=== PATIENT | male | born 1965 | race Caucasian/White ===

== ENCOUNTER → 2017-05-23 11:26 | Outpatient (CLI) | payer MEDICAID, SELFPAY ==
[2017-05-23 14:54] LABS: ALB/GLOB Ratio 0.8 RATIO (0.9-2.4); AST(SGOT) 17 U/L (15-37); Alanine Aminotransfer ALT/SGPT 33 U/L (16-61); Albumin, Serum 3.1 g/dL (3.2-5.0); Alkaline Phosphatase 72 U/L (45-117); Anion Gap 8 (5-15); BUN 11 mg/dL (7-18); Calcium,Total 8.6 mg/dL (8.5-10.1); Chloride 103 mmol/L (98-107); Cholesterol 197 mg/dL (200); EST Glomerular Filtration Rate 83 mL/min (>60); Est Glom Filt Rate - Afr Amer 101 mL/min (>60); Globulin 3.7 g/dL (2.2-4.2); Glucose 270 mg/dL (74-106); Hemoglobin A1c 7.8 % (4.2-6.3); High Density Lipoprotein 39 mg/dL; Potassium 4.2 mmol/L (3.5-5.1); Protein, Total 6.8 g/dL (6.4-8.2); Sodium Level 138 mmol/L (136-145); Thyroid Stim Hormone (TSH) 2.63 uIU/mL (0.358-3.74); Triglycerides 237 mg/dL; Very Low Density Lipoprotein 47 mg/dL (5-40)
[2017-05-24 11:43] LABS: Fructosamine 301 umol/L (0-285)
== END ==
PROVIDERS: Family Provider Family Medicine; PCP Family Medicine; Visit Provider Internal Medicine Endocrinology, Diabetes & Metabolism
DX: E11.319 Type 2 diabetes mellitus with unspecified diabetic retinopathy without macular edema (principal); E11.69 Type 2 diabetes mellitus with other specified complication; E78.2 Mixed hyperlipidemia
CPT/HCPCS: 36415; 80053; 80061; 82985; 83036; 84443

== ENCOUNTER → 2017-08-25 12:58 | Outpatient (CLI) | payer MEDICAID, SELFPAY ==
[2017-08-25 14:40] LABS: ALB/GLOB Ratio 0.9 RATIO (0.9-2.4); AST(SGOT) 15 U/L (15-37); Alanine Aminotransfer ALT/SGPT 34 U/L (16-61); Albumin, Serum 3.4 g/dL (3.2-5.0); Alkaline Phosphatase 73 U/L (45-117); Anion Gap 7 (5-15); BUN 13 mg/dL (7-18); BUN/Creat Ratio 13.5 RATIO (10-20); Chloride 102 mmol/L (98-107); Cholesterol 237 mg/dL (200); Creatinine, Serum 0.96 mg/dL (0.70-1.30); EST Glomerular Filtration Rate 87 mL/min (>60); Est Glom Filt Rate - Afr Amer 105 mL/min (>60); Globulin 3.7 g/dL (2.2-4.2); Glucose 247 mg/dL (74-106); High Density Lipoprotein 46 mg/dL; Potassium 4.3 mmol/L (3.5-5.1); Protein, Total 7.1 g/dL (6.4-8.2); Sodium Level 138 mmol/L (136-145); Triglycerides 155 mg/dL; Very Low Density Lipoprotein 31 mg/dL (5-40)
[2017-08-25 14:41] LABS: Hemoglobin A1c 8.3 % (4.2-6.3)
== END ==
PROVIDERS: Family Provider Family Medicine; PCP Family Medicine; Visit Provider Internal Medicine Endocrinology, Diabetes & Metabolism
DX: E11.69 Type 2 diabetes mellitus with other specified complication (principal); E78.2 Mixed hyperlipidemia
CPT/HCPCS: 36415; 80053; 80061; 83036

== ENCOUNTER → 2017-12-11 10:29 | Outpatient (CLI) | payer MEDICAID, SELFPAY ==
[2017-12-11 12:33] LABS: Hemoglobin A1c 7.9 % (4.2-6.3)
[2017-12-11 12:36] LABS: ALB/GLOB Ratio 0.9 RATIO (0.9-2.4); AST(SGOT) 17 U/L (15-37); Alanine Aminotransfer ALT/SGPT 32 U/L (16-61); Albumin, Serum 3.2 g/dL (3.2-5.0); Alkaline Phosphatase 70 U/L (45-117); Anion Gap 7 (5-15); BUN 13 mg/dL (7-18); Calcium,Total 8.9 mg/dL (8.5-10.1); Chloride 102 mmol/L (98-107); Cholesterol 219 mg/dL (200); Creatinine, Serum 1.18 mg/dL (0.70-1.30); EST Glomerular Filtration Rate 69 mL/min (>60); Est Glom Filt Rate - Afr Amer 83 mL/min (>60); Globulin 3.6 g/dL (2.2-4.2); Glucose 349 mg/dL (74-106); High Density Lipoprotein 43 mg/dL; PSA,Total - Annual Screen 0.25 ng/mL (0.00-4.00); Protein, Total 6.8 g/dL (6.4-8.2); Sodium Level 139 mmol/L (136-145); Triglycerides 79 mg/dL; Very Low Density Lipoprotein 16 mg/dL (5-40)
== END ==
PROVIDERS: Family Provider Family Medicine; PCP Family Medicine; Visit Provider Internal Medicine Endocrinology, Diabetes & Metabolism
DX: E11.69 Type 2 diabetes mellitus with other specified complication (principal); E78.2 Mixed hyperlipidemia; Z12.5 Encounter for screening for malignant neoplasm of prostate
CPT/HCPCS: 36415; 80053; 80061; 83036; 84153; G0103

== ENCOUNTER → 2018-06-27 13:11 | Outpatient (CLI) | payer MEDICAID, SELFPAY ==
--- NOTE | 2018-06-27 13:18 | VDLE_ITS ---
Reason For Study: DVT RIGHT LEFT GSV is normal. GSV is normal. CFV is compressible, spontaneous, phasic, CFV is compressible, spontaneous, phasic, competent and demonstrates normal competent, and demonstrates normal augmentation. augmentation. FV is compressible, spontaneous, phasic, FV is compressible, spontaneous, phasic, competent and demonstrates normal competent and demonstrates normal augmentation. augmentation. POP V is compressible, spontaneous, phasic, POP V is compressible, spontaneous, phasic, competent and demonstrates normal competent and demonstrates normal augmentation. augmentation. T/P Trunk is compressible. T/P Trunk is compressible. PTV is compressible. PTV is compressible. RT PerV is compressible. LT PerV is compressible. Procedure Exam performed in department. The exam was diagnostic. A preliminary report was called and/or faxed to Dr. Zaman. Interpretation Summary Deep veins of the lower extremities are bilaterally patent and compressible segmentally. There is no evidence of deep vein thrombosis on either side. Valvular competence appears intact within the proximal deep venous systems bilaterally. The greater saphenous veins appear bilaterally patent and compressible segmentally. Ordering Physician: Kenji Zaman Performed By: Munir Kohli RVT
== END ==
PROVIDERS: Family Provider Family Medicine; PCP Family Medicine; Referring Provider Podiatrist; Visit Provider Podiatrist
DX: I82.403 Acute embolism and thrombosis of unspecified deep veins of lower extremity, bilateral (principal); M79.89 Other specified soft tissue disorders; E11.51 Type 2 diabetes mellitus with diabetic peripheral angiopathy without gangrene
CPT/HCPCS: 93970

== ENCOUNTER 2018-07-13 08:25 | Outpatient (RCR) | payer MEDICAID, SELFPAY ==
--- NOTE | 2018-07-13 10:31 | HP.OTEVAL_ITS ---
Patient's Visit Information BAILEY CARDENAS is a 52 year old M, referred to Occupational Therapy by REBECCA WYATT, with a diagnosis of Lymphedema. Date of Evaluation: 07/13/18 Occupational Therapist: Cesia Rizo, TEREZAR/Justin, CHT - Subjective Subjective: This 52 year old male was seen for initial OT eval with dx of lymphedmea. Pt states he initiated wearing belly binder but it cuased back pain so he stopped wearing it. Pt states he did wear knee high compression sock at 10-15mmhg. Pt states he did wear the compression socks he did wear for one day but his right LE has hurt since so he has not used them again. Pt states he was over 400# at one time and dropped weight to 175# and shortly after was dx with DM and gain marylu back. 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 Pt would like to figure out how to make the swelling go away. - Pain BLE 8 Pain Intensity Range: 8, 9 - Lymphedema (Circumferential Measure) Ankle: right 29cm left 27cm Lower calf: right 37cm left 32cm Largest calf: right 45cm left 42cm Below knee: right 39cm left 38cm Lower Exremity Comments: pt demo with LE edema- - Lower Limb Functional Index Lower Extremity Functional Score: 17 - Goals Demonstrate a 20% reduction in edema by d/c: Yes Demonstrate adequate knowledge of self-massage by 2nd week: Yes Demonstrate adequate knowledge skin care/prec by 2nd week: Yes Demonstrate adequate knowledge therapeutic exercises by d/c: Yes Voice need to replace compression garment every 4-6mo by dc: Yes - Rehabilitation General Assessment: PT demo with stage I lymphedmea- pt demo need for skilled OT services 2-3 visits to ensure pt understands lymphedema mtg, use of compression garments, skin care and lymphedema ex. Today pt was ed. on lymph system, lymph mtg and compression garments. Pt given handout, demo understanding of use of compression garments and was given handouts. PT to return in 3-4 weeks after use of compression garments to ensure progress in mtg. pt agree to POC. Rehabilitation Potential: Fair - Anticipated Interventions Anticipated Interventions: Education re Diagnosis, Education re Life-long lymphedema Management, Education re Skin Care and Precautions, Education re Self Massage Techniques, Education re Correct Donning Tech,Care&Wearing Sched Comp Garments - Visit Plan Duration: return in 3-4 weeks TEXT: Thank you for the opportunity to evaluate your patient. For Medicare and Medicare HMO plans, please review the plan of care and approve it. It will need to be FAXED BACK to us at [phone] for Medicare purposes. Please let me know if there are questions or concerns regarding this plan of care. Physician Signature: Date:
--- NOTE | 2018-07-16 09:52 | HP.OTEVAL ---
Patient's Visit Information BAILEY CARDENAS is a 52 year old M, referred to Occupational Therapy by REBECCA WYATT, with a diagnosis of Lymphedema. Date of Evaluation: 07/13/18 Occupational Therapist: Cesia Rizo, TEREZAR/Justin, CHT - Subjective Subjective: This 52 year old male was seen for initial OT eval with dx of lymphedmea. Pt states he initiated wearing belly binder but it cuased back pain so he stopped wearing it. Pt states he did wear knee high compression sock at 10-15mmhg. Pt states he did wear the compression socks he did wear for one day but his right LE has hurt since so he has not used them again. Pt states he was over 400# at one time and dropped weight to 175# and shortly after was dx with DM and gain marylu back. 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 Pt would like to figure out how to make the swelling go away. - Pain BLE 8 Pain Intensity Range: 8, 9 - Lymphedema (Circumferential Measure) Ankle: right 29cm left 27cm Lower calf: right 37cm left 32cm Largest calf: right 45cm left 42cm Below knee: right 39cm left 38cm Lower Exremity Comments: pt demo with LE edema- - Lower Limb Functional Index Lower Extremity Functional Score: 17 - Goals Demonstrate a 20% reduction in edema by d/c: Yes Demonstrate adequate knowledge of self-massage by 2nd week: Yes Demonstrate adequate knowledge skin care/prec by 2nd week: Yes Demonstrate adequate knowledge therapeutic exercises by d/c: Yes Voice need to replace compression garment every 4-6mo by dc: Yes - Rehabilitation General Assessment: PT demo with stage I lymphedmea- pt demo need for skilled OT services 2-3 visits to ensure pt understands lymphedema mtg, use of compression garments, skin care and lymphedema ex. Today pt was ed. on lymph system, lymph mtg and compression garments. Pt given handout, demo understanding of use of compression garments and was given handouts. PT to return in 3-4 weeks after use of compression garments to ensure progress in mtg. pt agree to POC. Rehabilitation Potential: Fair - Anticipated Interventions Anticipated Interventions: Education re Diagnosis, Education re Life-long lymphedema Management, Education re Skin Care and Precautions, Education re Self Massage Techniques, Education re Correct Donning Tech,Care&Wearing Sched Comp Garments - Visit Plan Duration: return in 3-4 weeks TEXT: Thank you for the opportunity to evaluate your patient. For Medicare and Medicare HMO plans, please review the plan of care and approve it. It will need to be FAXED BACK to us at [phone] for Medicare purposes. Please let me know if there are questions or concerns regarding this plan of care. Physician Signature: Date:
--- NOTE | 2018-10-10 15:34 | HP.OT.NRP ---
HP - Discharge Summary - Patient Information BAILEY CARDENAS was seen in my office for initial evaluation on 07/13/18. The following Plan of Care was established for this patient: Initial Duration: return in 3-4 weeks - Anticipated Interventions Anticipated Interventions: Education re Diagnosis, Education re Life-long lymphedema Management, Education re Skin Care and Precautions, Education re Self Massage Techniques, Education re Correct Donning Tech,Care&Wearing Sched Comp Garments This patient was last seen in our office 07/13/18. Pertinent comments regarding their Occupational therapy will appear below: Pt seen for OT eval only, no further apts have been scheduled and due to time lapse in therapy services pt d/c at this time. At this point I will be discontinuing this patient from occupational therapy. I would be happy to see this patient again in the future if found appropriate by the physician. Thank you! Cesia Rizo, OTR/L, CHT
== END 2018-07-13 19:00 | disposition home or self-care (01) ==
LOC: OT 08:25
PROVIDERS: Family Provider Family Medicine; PCP Family Medicine
DX: I89.0 Lymphedema, not elsewhere classified (principal)
CPT/HCPCS: 97166

== ENCOUNTER 2018-09-13 08:08 | Outpatient (RCR) | payer MEDICAID, SELFPAY ==
[2018-09-13 08:39] VITALS: BP 197/92; PULSE 86; RESP 18; TEMP 36.7
--- NOTE | 2018-09-13 12:56 | PCM.WC.HP ---
(1) Ulcer of right lower extremity with fat layer exposed Status: Acute Current Visit: Yes Code(s): L97.912 - Non-pressure chronic ulcer of unspecified part of right lower leg with fat layer exposed (2) Ulcer of left lower extremity with fat layer exposed Status: Acute Current Visit: Yes Code(s): L97.922 - Non-pressure chronic ulcer of unspecified part of left lower leg with fat layer exposed (3) Lymphedema Status: Acute Current Visit: Yes Code(s): I89.0 - Lymphedema, not elsewhere classified (4) Lower extremity edema Status: Acute Current Visit: Yes Code(s): R60.0 - Localized edema (5) Non-compliance Status: Acute Current Visit: Yes Code(s): Z91.19 - Patient's noncompliance with other medical treatment and regimen History of Present Illness Date of Service: 09/13/18 Chief Complaint: bilateral anterior lower leg ulcers History of Wound: This 52-year-old diabetic male patient was consulted to the wound healing center after being referred here by Dr. Zaman for bilateral anterior martin ulcers and lower extremity edema. Patient states he noticed the ulcers starting approximately 1 week ago. He says they have not been getting any worse, but they are not getting better either. He relates he goes to the lymphedema clinic in [place] weekly. He admits to not keeping compression to his lower extremities or using his lymphedema pumps as long as recommended. Patient denies any purulence, redness, or warmth to the sites. Patient currently denies any feelings of nausea, vomiting, fever, chills. Past Medical History Allergies/Adverse Reactions: Allergies amlodipine [From Norvasc] Allergy (Verified 09/13/18 09:42) Other apraclonidine Allergy (Verified 09/13/18 09:42) Other doxycycline Allergy (Verified 09/13/18 09:42) Other enalapril Allergy (Verified 09/13/18 09:42) Other glimepiride Allergy (Verified 09/13/18 09:42) Other glipizide [From Glucotrol] Allergy (Verified 09/13/18 09:42) Other hydralazine Allergy (Verified 09/13/18 09:42) Other ibuprofen Allergy (Verified 09/13/18 09:42) Other latex Allergy (Verified 09/13/18 09:42) Other lisinopril Allergy (Verified 09/13/18 09:42) Other metoprolol Allergy (Verified 09/13/18 09:42) Other Penicillins Allergy (Verified 09/13/18 09:42) Other pravastatin Allergy (Verified 09/13/18 09:42) Other prednisone Allergy (Verified 09/13/18 09:42) Other simvastatin [From Zocor] Allergy (Verified 09/13/18 09:42) Other sulfamethoxazole [From Bactrim] Allergy (Verified 09/13/18 09:42) Other trimethoprim [From Bactrim] Allergy (Verified 09/13/18 09:42) Other Home Medications: Ambulatory Orders Medication Instructions Recorded Insulin Aspart [Novolog Flexpen 40 units SUBCUT ACHS 09/13/18 ([facility])] Insulin Glargine,Hum.rec.anlog 30 unit SQ BID 09/13/18 [Basaglar Kwikpen U-100] Review of Systems Constitutional: Denies: Chills, Fever, Weight Change Cardiovascular: Denies: Chest Pain, Palpitations Respiratory: Denies: Cough, Shortness of Breath Gastrointestinal: Denies: Diarrhea, Nausea, Vomiting Skin: Reports: - - Bilateral anterior martin ulcers - Physical Exam Vital Signs Temp Pulse Resp BP 98.0 F 86 18 197/92 H 09/13/18 08:39 09/13/18 08:39 09/13/18 08:39 09/13/18 08:39 General: Alert, Oriented x3, Cooperative, No apparent distress Extremities: Capillary Refill Less than 3 Seconds, No Calf Tenderness - Negative Tari and Whitney sign, Diminished Peripheral Pulses - Due to lower extremity edema, Edema - Bilateral lower extremity edema Skin: Ulcer/ Wound - Ulcer with fat layer exposed to right and left anterior martin. Base is a mixture of adherent slough, biofilm, granular tissue, as well as some surrounding hyperkeratotic tissue. There is no probing to bone, no tracking, no undermining, no purulence, no malodor, no surrounding or extending cellulitis, and no increase in warmth to the areas. Wound Measurements and Assessment WC - Nurse 1 - General Ulcer Measurement Start: 09/13/18 08:29 Freq: Status: Active Protocol: Activity Type Activity Date Activity User E-Sign Co-Sign Detail Recorded Client Recorded Date Recorded By Document 09/13/18 08:39 [place] [id number] 09/13/18 09:20 [place] 09/13/18 08:39 Wound Center Nurse 1 [Ulcer Assessment] #2 Right Martin Cluster -Current Size (cm) - Length 3 -Current Size (cm) - Width 7.6 -Current Size (cm) - Depth 0.1 -Total Square Cm 22.8 -Date of Last Picture (Recall this 09/13/18 field) -Photo Taken Yes -Exudate Amt Small -Exudate Type Serosanguineous -Wound Margin Flat & Intact -Granulation Amt Large (67-100%) -Granulation Quality Pale,[place] -Necrosis Amt Small (1-33%) -Necrotic Tissue Type Adherent Slough -Texture ([place]-wound Skin Appearance) Assessed, Localized Edema -Moisture ([place]-wound Skin Appearance Assessed, ) Weeping -Color ([place]-wound Skin Appearance) Assessed, Erythema -Temperature ([place]-wound Skin No Abnormality Appearance) (Pt Warm) -Tenderness on Palpation ([place]-wound No Skin Appearance) -Ulcer Cleansing Rinsed/ Irrigated with Saline -Foul Odor after Cleansing No -Anesthetic Used 4% Lidocaine Solution #1 Left Martin Cluster -Current Size (cm) - Length 2.1 -Current Size (cm) - Width 1.5 -Current Size (cm) - Depth 0.1 -Total Square Cm 3.15 -Date of Last Picture (Recall this 09/13/18 field) -Photo Taken Yes -Exudate Amt Small -Exudate Type Serosanguineous -Wound Margin Flat & Intact -Granulation Amt Medium (34-66%) -Granulation Quality Pale,[place] -Necrosis Amt Medium (34-66%) -Necrotic Tissue Type Adherent Slough -Texture ([place]-wound Skin Appearance) Assessed, Localized Edema -Moisture ([place]-wound Skin Appearance Assessed ) -Color ([place]-wound Skin Appearance) Assessed, Erythema -Temperature ([place]-wound Skin No Abnormality Appearance) (Pt Warm) -Tenderness on Palpation ([place]-wound No Skin Appearance) -Ulcer Cleansing Rinsed/ Irrigated with Saline -Foul Odor after Cleansing No -Anesthetic Used 4% Lidocaine Solution [Edema Assessment] -Right Calf (cm) 46 -Right Ankle (cm) 26 -Left Calf (cm) 42 -Point of Measurement (cm from the 26 medial instep) Musculoskeletal: No Tenderness to Palpation of Joints or Extremities Neurological: Sensory exam intact to light touch and pain Psych/Mental Status: Normal Affect, Appropriate Debridement Note No debridement was completed today Assessment/Plan Active Problems (Last Updated 09/13/18 @ 09:42 by Elba Sharma) Ulcer of right lower extremity with fat layer exposed (Acute) Ulcer of left lower extremity with fat layer exposed (Acute) Lymphedema (Acute) Lower extremity edema (Acute) Non-compliance (Acute) Assessment: Ulcer of right lower extremity fat layer exposed. Ulcer of left lower extremity fat layer exposed. DM. Lymphedema. Other comorbidities Plan: Initial patient examination evaluation was performed. No significant aggressive debridement was performed during clinic today. Patient was very rude during his visit today and was swearing as well. Ulcer sites were carefully cleansed. I suggested a 3M wrap to each lower leg. Patient says he is not interested in any kind of dressing that cannot be removed because he says there is no way he is not going to shower and that he does not feel he can keep the dressings dry if he does shower with them on. Patient demands that something be applied that can be changed to daily. We discussed at length that if the patient does not feel he can sufficiently change his dressings daily on his own he would be better off with a 3M wrap. He again denies this option. Patient does not qualify for home health. His ulcer sites were then dressed with Aquacel Ag followed by dry sterile dressing and double layer Tubigrip for compression. Patient was instructed that he is to changes on a daily basis. He again became agitated that he cannot come to the wound center for his dressing changes throughout the week. He then stated that he does not know what he is doing here. I again explained in detail the situation and what I recommended for dressing. He again goes against this and wishes to proceed with the dressing as noted above that he will need to change daily on his own. Patient to continue to follow-up with his lymphedema clinic in [place]. Patient was educated on all signs and symptoms of local and systemic infection he was instructed to go to the emergency room immediately should he notice any of these. Patient will follow back up in clinic in 1 week to check on progress, but was instructed to call the clinic should he have any issues prior to then.
== END 2018-09-23 23:59 ==
LOC: WC 08:08
PROVIDERS: Family Provider Family Medicine; PCP Family Medicine; Visit Provider Podiatrist
DX: E11.622 Type 2 diabetes mellitus with other skin ulcer (principal); L97.812 Non-pressure chronic ulcer of other part of right lower leg with fat layer exposed; L97.822 Non-pressure chronic ulcer of other part of left lower leg with fat layer exposed; I89.0 Lymphedema, not elsewhere classified; Z91.19 Patient's noncompliance with other medical treatment and regimen; R60.0 Localized edema
CPT/HCPCS: 99202; G0463

== ENCOUNTER 2019-06-01 04:35 | Observation (INO) | payer MEDICAID, SELFPAY ==
[2019-06-01] VITALS (15 sets, daily range): BP systolic 149–193; BP diastolic 68–110; PULSE 92–106; RESP 18–37; TEMP 36.4–36.9; O2SAT 81–97; BMI 58.3; BMI 58.4
--- NOTE | 2019-06-01 04:44 | EKG12_ITS ---
Test Reason : Blood Pressure : / mmHG Vent. Rate : 099 BPM Atrial Rate : 099 BPM P-R Int : 142 ms QRS Dur : 088 ms QT Int : 342 ms P-R-T Axes : 067 107 060 degrees QTc Int : 438 ms Normal sinus rhythm Rightward axis Borderline ECG Confirmed by QASIM BERGER, ENRICO ([id number]), lens coating technician SOPHIE GMAA ([id number]) on 06/03/2019 3:33:31 PM Referred By: BB Confirmed By:ENRICO TRIPP MD
--- NOTE | 2019-06-01 04:54 | ED.VIS.DYS ---
History of Present Illness Chief Complaint: Shortness of Breath Informant: Patient, EMS Onset: Weeks - 2-3 Timing: Continuous Quality: Orthopnea, Wheezing Current Severity: Severe Maximum Severity: Severe Worsened by: Coughing, Exertion, Lying flat Relieved by: Albuterol, Oxygen Associated Symptoms: Cough. Negative for: Bloody Sputum, Clear sputum, Fever, Green sputum, Rhinorrhea, Sore throat, Yellow sputum Chest Pain: Tightness Narrative: Patient has a history of COPD from secondhand smoke and lymphedema and was admitted to [facility] in [place] couple weeks ago, states he had an echocardiogram there does not know the results of it, does not have any known history of heart problems or congestive heart failure, but does have a history of lymphedema for which she was recently put on torsemide for her after not tolerating Lasix for some reason. He was discharged and was supposed to be on oxygen at home but it never came so he went to [facility], where he was admitted and discharged and again oxygen never came, saw his PCP yesterday, was advised to get oxygen at home, it never came. He states he is now worse again with same symptoms as before. - Past Medical History (1) COPD (chronic obstructive pulmonary disease) Status: Chronic (2) Lymphedema Status: Chronic Past Medical History - Allergies and Home Meds Allergies/Adverse Reactions: Allergies amlodipine [From Norvasc] Allergy (Verified 09/13/18 09:42) Other apraclonidine Allergy (Verified 09/13/18 09:42) Other diltiazem Allergy (Verified 06/01/19 06:50) Unknown doxycycline Allergy (Verified 09/13/18 09:42) Other enalapril Allergy (Verified 09/13/18 09:42) Other glimepiride Allergy (Verified 09/13/18 09:42) Other glipizide [From Glucotrol] Allergy (Verified 09/13/18 09:42) Other hydralazine Allergy (Verified 09/13/18 09:42) Other ibuprofen Allergy (Verified 09/13/18 09:42) Other Influenza Virus Vaccines Allergy (Verified 06/01/19 06:50) Unknown latex Allergy (Verified 09/13/18 09:42) Other lisinopril Allergy (Verified 09/13/18 09:42) Other metoprolol Allergy (Verified 09/13/18 09:42) Other montelukast Allergy (Verified 06/01/19 06:50) Other blurred vision Penicillins Allergy (Verified 09/13/18 09:42) Other pravastatin Allergy (Verified 09/13/18 09:42) Other prednisone Allergy (Verified 09/13/18 09:42) Other propranolol Allergy (Verified 06/01/19 06:50) Unknown simvastatin [From Zocor] Allergy (Verified 09/13/18 09:42) Other sulfamethoxazole [From Bactrim] Allergy (Verified 09/13/18 09:42) Other trimethoprim [From Bactrim] Allergy (Verified 09/13/18 09:42) Other Primary Care Physician: Armin Chau DO [Primary Care Provider] - Doctors: 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 Denies: Chills, Fever, Sweats Eyes: Denies: Visual changes - bilaterally, Diplopia ENT: Denies: Bilateral ear pain, Rhinorrhea, Sore throat Cardiovascular: Reports: Chest pain. Denies: Palpitations, Heart racing Respiratory: Reports: Dyspnea, Cough, Dyspnea on exertion, Orthopnea. Denies: Sputum Gastrointestinal: Denies: Abdominal pain, Nausea, Vomiting, Diarrhea, Melena, Hematochezia Genitourinary: Denies: Dysuria, Hematuria, Frequency Musculoskeletal: Reports: Swelling. Denies: Neck pain, Back pain, Extremity Pain Skin: Reports: Wounds - right lower leg, not painful, chronic, looks good now compared to usual. Denies: Rash Neurological: Denies: Headache, Weakness, Numbness Allergy: Denies: Swelling of the mouth, Swelling of the tongue Physical Exam Vital Signs/Narrative: Vital Signs Temp Pulse Resp BP Pulse Ox 06/01/19 04:37 97.6 F L 104 H 37 H 193/99 H 86 Inital Vital Signs reviewed: Yes General: Well nourished, Well developed, Obese, Acute Distress - respiratory; speaking in 3-5-word sentences Head: Normocephalic, Atraumatic Eyes: Perrl, EOMI ENT: Moist mucous membranes, No rhinorrhea Neck: Supple, Nontender, No lymphadenopathy, No JVD - none visible but limited by obesity Cardiovascular: Regular rate, Regular rhythm, No murmurs, Tachycardia Respiratory: No distress, Chest nontender, Wheezing - mild expiratory, Diminished - symmetric, throughout; limited by obesity. Negative for: Rales, Rhonchi Abdomen: Soft, Nontender, Nondistended, Normal bowel sounds, - - no ascites fluid wave, but abd wall feels tight. no peau d' orange appearance or induration/cellulitis/erythema. Back: Nontender, Normal Inspection Extremities: Nontender - 4+ BLE, to upper abd wall. changes c/w stasis in BLE., Edema - 4+ BLE, to upper abd wall. changes c/w stasis in BLE Skin: Normal color, No rash, - - large anterior superficial right lower leg wound w/ granulation tissue, nontender, no abscess or SQ emphysema. Neurological: Alert, Oriented x3, Cranial nerves II-XII grossly intact, Normal Strength, Normal Sensation Psychological: Normal Mood, - - anxious Diagnostic/Tx/Re-eval - Rhythm Strip Rhythm Strip: Sinus Tach Rate: 110 Ectopy: None - EKG Initial EKG Interpretation: Sinus Rhythm, No Acute Injury Pattern Prior: Unchanged Treatment - Dyspnea: Oxygen, Albuterol, Atrovent Repeat Evaluation: Improved - Medical Decision Making Initially patient appeared to be in respiratory distress to a significant degree so aerosols and BiPAP were ordered. Patient refused it, and the aerosols helped, he was able to converse better but not great, we lied him back and he did fairly well. His chest x-ray is read by radiology is fairly unremarkable without any acute disease. He thinks this feels like he has asthma/COPD, which is why nebulizer treatments have been helping. He refuses diuretic as well, stating that he had an abnormal reaction to furosemide which is why his doctor changed him to torsemide yesterday, and he also refuses steroids because they make his lymphedema worse. On reevaluating him, he confirms that he was the short of breath at his doctor's office yesterday and this is been fairly common for him in the past couple weeks. He went to a lymphedema specialist [facility] and he states that was a joke. He was told he needed surgery but that his BMI was way too high, and that he should consider bariatric surgery but they told him that the lymphedema surgery may be more appropriate before bariatric. We were not able to obtain blood easily. We have an IV but will not draw back anything and lab was unable to obtain blood from him. Therefore after obtaining verbal consent from the patient I performed a femoral vena puncture, however the blood clotted before we could get it into tubes. Nursing is trying again and those labs are pending but in the end he will be admitted because of persistent hypoxemia and the lack of oxygen at home. We did give him several more nebulizer treatments and he improved, and I took him off of his oxygen to see if his levels improved, but he quickly desatted down to 85% so the oxygen was put back on and he is admitted. Of further note, his blood pressure remained significantly elevated. He recently had an echocardiogram at [place] showing a normal LV function with EF 55-60%, and normal diastolic function. Subsequently, when he was discharged from [facility], he was discharged with a diagnosis of acute congestive heart failure and acute on chronic diastolic congestive heart failure. His BNP now is 74, arguing against acute decompensated congestive heart failure. Procedures Procedure(s): Femoral venipuncture. Blood was unable to be obtained by nursing or lab for testing, so patient provided verbal consent for right femoral venipuncture. This was performed under ultrasound guidance, isopropanol prep, followed by punctured with an 18-gauge needle and 20 cc syringe. Approximately 10 cc was able to be obtained. Patient refused local anesthesia beforehand. He tolerated well. There were no complications except for hemolyzed blood. ED Disposition - Plan for ED Patient: Disposition: Acute Care Hospital [facility] Diagnosis: Hypoxemia, COPD (chronic obstructive pulmonary disease), Lymphedema, Accelerated hypertension Referrals: Armin Chau DO [Primary Care Provider] -
--- NOTE | 2019-06-01 04:59 | ED.RN ---
RELEASE OF INFORMATION FAXED TO [facility] FOR MEDICAL RECORDS AT [facility] 05/18/2019-05/23/2019 AND [facility] 05/27/2019-05/31/2019
--- NOTE | 2019-06-01 05:03 | RAD_ITS ---
STUDY: X-RAY CHEST REASON FOR EXAM: Male, 53 years old. COPD EXACERBATION -- SOB TECHNIQUE: Single frontal view of the chest. COMPARISON: None. FINDINGS: The lungs are clear and expanded. There is no demonstrated pleural abnormality. Prominent cardiac silhouette. Normal mediastinum and elma. Normal visualized pulmonary arteries. Normal visualized aortic arch and descending thoracic aorta. Normal visualized thoracic spine. Normal visualized ribs, clavicles, and shoulders. There is no demonstrated abnormality of the visualized soft tissue structures of the upper abdomen. RAD/Chest 1 View (Portable) IMPRESSION: No acute pulmonary findings. Electronically Signed: Danny Edwards MD at 5:26 EST Tel , Service support ,
[2019-06-01 06:05] LABS: Allen Test POS; Base Excess 8 mmol/L (-2 to +2); Blood Gas Specimen Type ART; O2 Delivery Device Nasal Can; PO2 64 mmHG (75-100); SITE L Radial; SO2 92 % (95-99); Total Carbon Dioxide 35 mmol/L; pCO2 53.8 mmHg (35-45)
[2019-06-01] MEDS: Ipratropium/Albuterol Sulfate 3 ML AMPUL.NEB INHALATION ×4 (06:28→19:42)
[2019-06-01] MEDS: Albuterol 2.5 MG/3 ML VIAL.NEB. INHALATION ×3 (06:28→06:39)
[2019-06-01 06:30] LABS: Absolute Lymphocyte Count 0.98 X10^3/uL (0.83-4.51); Absolute Neutrophil Count 12.4 X10^3/uL (2.0-7.7); Basophil# 0.06 X10^3/uL; Basophil% 0.4 % (0-1); Eosinophil# 0.13 X10^3/uL; Eosinophils% 0.9 % (0-5); Hematocrit 48.4 % (40-54); Hemoglobin 14.7 g/dL (13.0-16.5); Lymphocyte # 0.98 X10^3/ul (4.0); Lymphocyte % 6.8 % (19-41); Mean Corp Hgb Conc 30.4 g/dL (32-36); Mean Corpuscular Hgb 26.2 pg (27.0-32.0); Mean Corpuscular Volume 86.3 fL (80-94); Mean Platelet Vol. 9.9 fl (6.2-12.0); Monocyte# 0.87 X10^3/uL; NRBC Flagged by Analyzer 0 % (0-5); Neutrophil # 12.38 X10^3/uL (2.7-7.7); Neutrophil % 85.7 % (47-70); Platelet Count 208 K/mm3 (150-450); RBC Distribution Width CV 13.6 % (11.6-14.6); RBC Distribution Width SD 42.3 fl (35.1-43.9); Red Blood Count 5.61 M/mm3 (4.6-6.2); White Blood Count 14.5 K/mm3 (4.4-11.0)
[2019-06-01 06:35] LABS: Bedside Glucose 204 mg/dL (70-110)
[2019-06-01 06:48] LABS: Anion Gap 3 (5-15); BUN 24 mg/dL (7-18); Calcium,Total 8.8 mg/dL (8.5-10.1); Chloride 105 mmol/L (98-107); Creatinine, Serum 1.09 mg/dL (0.70-1.30); EST Glomerular Filtration Rate 75 mL/min (>60); Est Glom Filt Rate - Afr Amer 91 mL/min (>60); Estimated Creatinine Clearance 62.35 ml/min; Glucose 196 mg/dL (74-106); Sodium Level 140 mmol/L (136-145)
[2019-06-01 07:04] LABS: BNP,B-Type NATRIURETIC PEPTIDE 74.2 pg/mL (0-100)
[2019-06-01 09:05] LABS: Bedside Glucose 259 mg/dL (70-110)
--- NOTE | 2019-06-01 10:40 | NURSING ---
Addendum entered by Linnea Kramer 06/01/19 10:49: Pt denies every having sleep apnea and per questions answered on admission- does not flag + for sleep apnea. Pt has large seeping wound, with pinkish- red with to right lower ext. and 3+ pitting edema to bilateral lower ext. Pt states he has a history of lymphedema. Pt states that we are not to order any antibiotics because I don't need them. He states that he just had some this past week and that he will not take them if/ when they are ordered. He also states he will not take any steroids as that is what caused his legs to balloon up last time and states he will not take lasix either because they just about killed my kidneys with that. Notified solumedrol is ordered and pt states he will not take. Pt adamant that he take his own prilosec because he cannot take the alternate. Pt requested breakfast- same ordered. this RN had been waiting on new orders for home meds from physician and pt called out 3 times demanding his morning meds- states he must have his novolog now because he is starting to shake and can feel his sugars rising. He notified this RN that you better get on the phone and get it to me now. pt notified that physician was called, and that pharmacy was already notified of pt request for AM meds, sherif. insulin now. Insulin given as soon as order verified by pharmacy in the computer. pt states he cannot use dial soap on wound and cannot use most dressings because it makes the wound worse. He states that is what happened at the last hospital-they were wrapping it wrong. He states he is suppose to use [employer] wraps but can't get down there to his legs. Pt b/p was rechecked at this time and was 178/76- however, states even if bp meds were ordered he will not take them. Doctor to be notified of same. Doctor Ese notified of pt being very particular and of pt refusing many interventions intended to help pt. Pt states he is here due to his increases SOB at home and need for home oxygen. Original Note: Pt admitted this shift after being transferred from [facility] to [facility] and the had appt with PCP on Monday. Pt states that both places were suppose to order home oxygen and they both dropped the ball. States at [facility] they tried to have him wear a cpap and that it was taking away his breath. He states that then the importer or exporter there stated that he did not need.
[2019-06-01] MEDS: Insulin Lispro 100 UNIT/ML INSULN.PEN SC ×3 (10:44→16:52)
[2019-06-01] MEDS: Insulin Lispro 100 UNIT/ML INSULN.PEN 40 UNIT SC ×3 (10:44→16:53)
[2019-06-01] MEDS: Sodium Chloride 0.65% 1 SPRAY SPRAY.BTL NASAL ×2 (12:17→17:30)
[2019-06-01] MEDS: Bumetanide 0.5 MG Tablet 1 MG PO (12:18)
[2019-06-01 13:50] LABS: Bedside Glucose 312 mg/dL (70-110)
--- NOTE | 2019-06-01 14:19 | PCM.HP.STD ---
<Bg Jorge - Last Filed: 06/01/19 14:19> Problem List (1) Diastolic CHF Status: Chronic Qualifiers: Heart failure chronicity: chronic Qualified Code(s): I50.32 - Chronic diastolic (congestive) heart failure (2) HTN (hypertension) Status: Chronic (3) Lymphedema Status: Chronic (4) COPD (chronic obstructive pulmonary disease) Status: Chronic History of Present Illness Date of Admission: 06/01/19 Chief Complaint: SOB The patient is a 53 year old M with pmhx diastolic CHF, lymphedema, COPD, gerd, stomach ulcer, DMt2, who presents to the ER with c/o SOB. The patient has been discharged from hospitals twice in the past month. He was discharged from [facility] after being treated for acute CHF on Monday. He was discharged from [facility] the week before. He states he left [facility] and went to picker/puller his meds at the pharmacy and when he breathed in the cold air he became more dyspneic. He is also upset that he was told that he would need home o2 at his last admission but that they checked again before discharge and decided not to send him on it. He is SOB, with LE edema however has chronic LE edema from lymphedema and does not use any wraps for his lymphedema stating that this is because he cant reach his legs. He has no CP. No cough. No wheezing. He has no CP. No LH/dizziness. He feels his breathing is improved at rest but when he walked in the unit he was still dyspneic. He does not want any treatment other than o2. He states this is the last time hes coming to a hospital and that he wanted to go to [facility] but the squad wouldnt take him there due to bad road conditions. [] Past Medical History Past Medical History (Chronic Problems): Chronic Problems (Last Updated 09/13/18 @ 09:42 by Elba Sharma) Lymphedema (Chronic) COPD (chronic obstructive pulmonary disease) (Chronic) HTN (hypertension) (Chronic) Diastolic CHF (Chronic) Medical History: Medical History (Last Updated 09/13/18 @ 09:42 by Elba Sharma) Diabetes E11.9 Lymphedema I89.0 Allergies amlodipine [From [facility]] Allergy (Verified 09/13/18 09:42) Other apraclonidine Allergy (Verified 09/13/18 09:42) Other diltiazem Allergy (Verified 06/01/19 06:50) Unknown doxycycline Allergy (Verified 09/13/18 09:42) Other enalapril Allergy (Verified 09/13/18 09:42) Other glimepiride Allergy (Verified 09/13/18 09:42) Other glipizide [From Glucotrol] Allergy (Verified 09/13/18 09:42) Other hydralazine Allergy (Verified 09/13/18 09:42) Other ibuprofen Allergy (Verified 09/13/18 09:42) Other Influenza Virus Vaccines Allergy (Verified 06/01/19 06:50) Unknown latex Allergy (Verified 09/13/18 09:42) Other lisinopril Allergy (Verified 09/13/18 09:42) Other metoprolol Allergy (Verified 09/13/18 09:42) Other montelukast Allergy (Verified 06/01/19 06:50) Other blurred vision Penicillins Allergy (Verified 09/13/18 09:42) Other pravastatin Allergy (Verified 09/13/18 09:42) Other prednisone Allergy (Verified 09/13/18 09:42) Other propranolol Allergy (Verified 06/01/19 06:50) Unknown simvastatin [From Zocor] Allergy (Verified 09/13/18 09:42) Other sulfamethoxazole [From Bactrim] Allergy (Verified 09/13/18 09:42) Other trimethoprim [From Bactrim] Allergy (Verified 09/13/18 09:42) Other Home Medications: Ambulatory Orders Medication Instructions Recorded Insulin Aspart [Novolog Flexpen 40 units SUBCUT ACHS 09/13/18 ([facility])] Insulin Glargine,Hum.rec.anlog 30 unit SQ BID 09/13/18 [Basaglar Kwikpen U-100] Bumetanide 1 mg PO DAILY 06/01/19 Hydrocortisone 1% Oint [Hytone] 1 applic TOPICAL TID 06/01/19 Liraglutide [Victoza] 0.6 mg SQ DAILY 06/01/19 Omeprazole Magnesium [Prilosec Otc] 20 mg PO DAILY 06/01/19 Sodium Chloride [Saline Nose Triangle] 1 spray NARES Q4H PRN 06/01/19 Surgical History: tonsillectomy, - - neck cyst removed Psychiatric History: No pertinent psych hx Lives: With Family Smoking Status: Never smoker Tobacco Use: Secondhand Alcohol: None Drugs: None - *Family History Maternal History Items: DVT Paternal History Items: Diabetes, High Cholesterol, Hypertension Review of Systems Constitutional: Denies: Chills, Fever, Weight Change HEENT: Denies: Head Aches, Sinus Congestion, Sinus Drainage Cardiovascular: Denies: Chest Pain, Palpitations Respiratory: Reports: Shortness of Breath, Shortness of breath at rest, Shortness of breath upon exertion. Denies: Cough, Sputum production, Wheezing Gastrointestinal: Denies: Abdominal Pain, Nausea, Vomiting Genitourinary: Denies: Dysuria Musculoskeletal: Denies: Joint Pain, Joint Tenderness Skin: Denies: Rash, Wounds Neurological: Denies: Numbness, Tingling, Focal weakness Psychiatric: Denies: Anxiety, Depression, Homicidal Ideations, Suicidal Ideations Hematologic/ Lymphatic: Denies: Easy Bruising, Easy Bleeding VTE Information - Inpt Only VTE Present on Admission: No VTE Mechan Device Prophylaxis: None VTE Pharm Prophylaxis ordered?: Yes Patient Problems: Active and Suspected Problems (Last Updated 09/13/18 @ 09:42 by Elba Sharma) Hypoxemia (Acute) Accelerated hypertension (Acute) - Physical Exam Vitals/I&O's: Vital Signs Temp Pulse Resp BP Pulse Ox 97.9 F 94 18 174/70 H 81 06/01/19 13:30 06/01/19 13:30 06/01/19 13:30 06/01/19 13:30 06/01/19 13:54 Oxygen Flow Rate (L/min) [ 4 AMBULATION with Oxygen] Oxygen Flow Rate (L/min) [At 0 REST on Room Air] Oxygen Flow Rate (L/min) 3 Oxygen Delivery Method Nasal Cannula Weight: 329 lb 12.984 oz Body Mass Index (BMI) 58.3 Finger Stick Blood Glucose 204 Intake and Output for Last 24 Hours 05/30/19 05/31/19 06/01/19 23:59 23:59 23:59 Intake Total 100 / 100 Balance 100 / 100 General: Alert, Oriented x3, Cooperative HEENT: Atraumatic, PERRLA, EOMI, Normocephalic Neck: Supple, No JVD, Negative Carotid Bruits Lungs: Clear to auscultation, Diminished Cardiovascular: Regular rate, No murmurs Abdomen: Bowel Sounds Present, Soft, Non Tender Extremities: No edema, Capillary Refill Less than 3 Seconds Skin: No rashes, No breakdown Musculoskeletal: No Tenderness to Palpation of Joints or Extremities Neurological: Cranial nerves II-XII grossly intact Psych/Mental Status: Normal Affect, Appropriate, Alert and oriented to time, place, person, mood and affect Microbiology Past 72 Hours 06/01/19 04:55 Mucosa - Nose Influenza Types A,B Direct FA (FREDDY) - Final Laboratory Results 06/01/19 06:01: Specimen Type ART, Sample Site L Radial, pH 7.40, Bicarbonate Actual 33.0 H, POC Total CO2 35, Base Excess 8 H, O2 Saturation 92 L, ABG pCO2 53.8 H, ABG pO2 64 L, Catarino Test POS, O2 Delivery Device Nasal Can, Liter Flow 3.0, Blood Gas Notified Whom ED MD 06/01/19 06:09: WBC Cancelled, Corrected WBC Cancelled, RBC Cancelled, Hgb Cancelled, Hct Cancelled, MCV Cancelled, MCH Cancelled, MCHC Cancelled, RDW Std Deviation Cancelled, RDW Coeff of Jung Cancelled, Plt Count Cancelled, MPV Cancelled, Immature Gran % (Auto) Cancelled, Neut % (Auto) Cancelled, Lymph % (Auto) Cancelled, [place] % (Auto) Cancelled, Eos % (Auto) Cancelled, Baso % (Auto) Cancelled, Absolute Neuts (auto) Cancelled, Absolute Lymphs (auto) Cancelled, Total Counted Cancelled, Neutrophils % (Manual) Cancelled, Band Neutrophils % Cancelled, Lymphocytes % (Manual) Cancelled, Monocytes % (Manual) Cancelled, Eosinophils % (Manual) Cancelled, Basophils % (Manual) Cancelled, Metamyelocytes % Cancelled, Myelocytes % Cancelled, Promyelocytes % Cancelled, Blast Cells % Cancelled, Plasma Cell % (Manual) Cancelled, Other Cells % Cancelled, Nucleated RBC % Cancelled, Nucleated RBCs/100 WBC Cancelled, Differential Comment Cancelled, Diff Path Review Cancelled, Hypersegmented Neuts Cancelled, Atypical Lymphocytes Cancelled, Reactive Lymphocytes Cancelled, Smudge Cells Cancelled, Toxic Granulation Cancelled, Toxic Vacuolation Cancelled, Dohle Bodies Cancelled, Aimee Rods Cancelled, Platelet Estimate Cancelled, Plt Morphology Comment Cancelled, RBC Morphology Cancelled, Polychromasia Cancelled, Hypochromasia Cancelled, Poikilocytosis Cancelled, Basophilic Stippling Cancelled, Anisocytosis Cancelled, Microcytosis Cancelled, Macrocytosis Cancelled, Spherocytes Cancelled, Sickle Cells Cancelled, Target Cells Cancelled, Tear Drop Cells Cancelled, Ovalocytes Cancelled, Stomatocytes Cancelled, [place] Bodies Cancelled, Mentcle Cells Cancelled, Bite Cells Cancelled, Crenated Cell Cancelled, Acanthocytes (Spur) Cancelled, Rouleaux Cancelled, Schistocytes Cancelled 06/01/19 06:09: Sodium Cancelled, Potassium Cancelled, Chloride Cancelled, Carbon Dioxide Cancelled, Anion Gap Cancelled, BUN Cancelled, Creatinine Cancelled, Estim Creat Clear Calc Cancelled, Est GFR (MDRD) Af Amer Cancelled, Est GFR (MDRD) Non-Af Cancelled, BUN/Creatinine Ratio Cancelled, Glucose Cancelled, Calcium Cancelled, Troponin I Cancelled 06/01/19 06:09: B-Natriuretic Peptide Cancelled 06/01/19 06:24: Sodium 140, Potassium 4.0, Chloride 105, Carbon Dioxide 32.0, Anion Gap 3 L, BUN 24 H, Creatinine 1.09, Estim Creat Clear Calc 62.35, Est GFR (MDRD) Af Amer 91, Est GFR (MDRD) Non-Af 75, BUN/Creatinine Ratio 22.0 H, Glucose 196 H, Calcium 8.8, Troponin I 0.016 06/01/19 06:24: WBC 14.5 H, RBC 5.61, Hgb 14.7, Hct 48.4, MCV 86.3, MCH 26.2 L, MCHC 30.4 L, RDW Std Deviation 42.3, RDW Coeff of Jung 13.6, Plt Count 208, MPV 9.9, Immature Gran % (Auto) 0.200, Neut % (Auto) 85.7 H, Lymph % (Auto) 6.8 L, [place] % (Auto) 6.0, Eos % (Auto) 0.9, Baso % (Auto) 0.4, Absolute Neuts (auto) 12.4 H, Absolute Lymphs (auto) 0.98, Nucleated RBC % 0 06/01/19 06:24: B-Natriuretic Peptide 74.2 06/01/19 06:29: POC Glucose 204 H 06/01/19 08:58: POC Glucose 259 H 06/01/19 13:32: POC Glucose 312 H Current Medications Albuterol/Ipratropium (Duoneb) 3 ml INHALATION Q4HWA.RT [facility] Last Admin: 06/01/19 11:03 Dose: 3 ml Documented by: Bumetanide (Bumex) 1 mg PO DAILY [facility] Last Admin: 06/01/19 12:18 Dose: 1 mg Documented by: Enoxaparin Sodium (Lovenox) 40 mg SC DAILY [facility] Last Admin: 06/01/19 09:43 Dose: Not Given Documented by: Glucagon () 1 mg IM .X1 PRN PRN Reason: Hypoglycemia Dextrose (Dextrose 10%-Water) 250 mls @ 999 mls/hr IV .Q16M PRN; Protocol PRN Reason: HYPOGLYCEMIA Sodium Chloride () 250 mls @ 15 mls/hr IV .[id number] PRN PRN Reason: Saline Flush Insulin Glargine (Lantus (Bk)) 30 units SC BID [facility] Last Admin: 06/01/19 12:18 Dose: 30 units Documented by: Insulin Human Lispro (Humalog Kwikpen ([facility])) 0 unit SC ACHS [facility]; Protocol Last Admin: 06/01/19 10:44 Dose: 4 units Documented by: Insulin Human Lispro (Humalog Kwikpen ([facility])) 40 unit SC ACHS [facility] Last Admin: 06/01/19 10:44 Dose: 40 units Documented by: Liraglutide (Victoza) 0.6 mg SQ DAILY [facility] Methylprednisolone (Solu-Medrol) 40 mg IV Q8 [facility] Non-Formulary Medication (Hydrocortisone 1% Oint) 1 applic topical TID [facility] Non-Formulary Medication (Omeprazole Magnesium [Prilosec Otc]) 20 mg PO DAILY [facility] Sodium Chloride () 10 - 40 ml IV UD PRN PRN Reason: SALINE FLUSH Sodium Chloride ([place] Nasal Triangle) 1 spray NASAL Q4H PRN PRN PRN Reason: dry nares Last Admin: 06/01/19 12:17 Dose: 1 spray Documented by: Assessment/Plan All Active Problems (Last Updated 09/13/18 @ 09:42 by Elba Sharma) Ulcer of right lower extremity with fat layer exposed (Acute) Ulcer of left lower extremity with fat layer exposed (Acute) Lower extremity edema (Acute) Non-compliance (Acute) Hypoxemia (Acute) Accelerated hypertension (Acute) 1. acute hypoxia 2/2 Acute bronchospasm - started when he walked into the cold air. Continue aerosols, steroids, Incentive spirometer. may need home o2. he does have mild co2 retention, i suspect this is chronic. 2. COPD - not acute exacerbation 3. Chronic diastolic CHF - chronic LE edema, negative BNP, negative CXR. Continue home meds. Add TRINITY wraps. recommend wound care follow up 4. Uncontrolled HTN - allergic to trinity inhibitors, hydralazine, propranolol, metoprolol, apraclonidine, norvasc - allergies unverified however the patient is very particular about what medications he will agree to take. Will continue bumex and monitor bp. 5. Dmt2 with morbid obesity - uncontrolled - continue home insulin + SSI. resume victoza at dc. 6. hx GERD/hx stomach ulcer - ppi DVT ppx: lovenox DC planning: home o2 eval prior to dc. This patient was seen by Bg Jorge PA-C under the supervision of Dr. Mulligan. <Pavel Mulligan - Last Filed: 06/01/19 15:11> History of Present Illness The patient is a 53 year old M [] Past Medical History Medical History: Medical History (Last Updated 09/13/18 @ 09:42 by Elba Sharma) Diabetes E11.9 Lymphedema I89.0 Allergies amlodipine [From Norvasc] Allergy (Verified 09/13/18 09:42) Other apraclonidine Allergy (Verified 09/13/18 09:42) Other diltiazem Allergy (Verified 06/01/19 06:50) Unknown doxycycline Allergy (Verified 09/13/18 09:42) Other enalapril Allergy (Verified 09/13/18 09:42) Other glimepiride Allergy (Verified 09/13/18 09:42) Other glipizide [From Glucotrol] Allergy (Verified 09/13/18 09:42) Other hydralazine Allergy (Verified 09/13/18 09:42) Other ibuprofen Allergy (Verified 09/13/18 09:42) Other Influenza Virus Vaccines Allergy (Verified 06/01/19 06:50) Unknown latex Allergy (Verified 09/13/18 09:42) Other lisinopril Allergy (Verified 09/13/18 09:42) Other metoprolol Allergy (Verified 09/13/18 09:42) Other montelukast Allergy (Verified 06/01/19 06:50) Other blurred vision Penicillins Allergy (Verified 09/13/18 09:42) Other pravastatin Allergy (Verified 09/13/18 09:42) Other prednisone Allergy (Verified 09/13/18 09:42) Other propranolol Allergy (Verified 06/01/19 06:50) Unknown simvastatin [From Zocor] Allergy (Verified 09/13/18 09:42) Other sulfamethoxazole [From Bactrim] Allergy (Verified 09/13/18 09:42) Other trimethoprim [From Bactrim] Allergy (Verified 09/13/18 09:42) Other - Physical Exam Vitals/I&O's: Vital Signs Temp Pulse Resp BP Pulse Ox 97.9 F 94 18 174/70 H 81 06/01/19 13:30 06/01/19 13:30 06/01/19 13:30 06/01/19 13:30 06/01/19 13:54 Oxygen Flow Rate (L/min) [ 4 AMBULATION with Oxygen] Oxygen Flow Rate (L/min) [At 0 REST on Room Air] Oxygen Flow Rate (L/min) 3 Oxygen Delivery Method Nasal Cannula Weight: 329 lb 12.984 oz Body Mass Index (BMI) 58.3 Finger Stick Blood Glucose 204 Intake and Output for Last 24 Hours 05/30/19 05/31/19 06/01/19 23:59 23:59 23:59 Intake Total 100 / 100 Balance 100 / 100 Microbiology Past 72 Hours 06/01/19 04:55 Mucosa - Nose Influenza Types A,B Direct FA (FREDDY) - Final Laboratory Results 06/01/19 06:01: Specimen Type ART, Sample Site L Radial, pH 7.40, Bicarbonate Actual 33.0 H, POC Total CO2 35, Base Excess 8 H, O2 Saturation 92 L, ABG pCO2 53.8 H, ABG pO2 64 L, Catarino Test POS, O2 Delivery Device Nasal Can, Liter Flow 3.0, Blood Gas Notified Whom ED 06/01/19 06:09: WBC Cancelled, Corrected WBC Cancelled, RBC Cancelled, Hgb Cancelled, Hct Cancelled, MCV Cancelled, MCH Cancelled, MCHC Cancelled, RDW Std Deviation Cancelled, RDW Coeff of Jung Cancelled, Plt Count Cancelled, MPV Cancelled, Immature Gran % (Auto) Cancelled, Neut % (Auto) Cancelled, Lymph % (Auto) Cancelled, [place] % (Auto) Cancelled, Eos % (Auto) Cancelled, Baso % (Auto) Cancelled, Absolute Neuts (auto) Cancelled, Absolute Lymphs (auto) Cancelled, Total Counted Cancelled, Neutrophils % (Manual) Cancelled, Band Neutrophils % Cancelled, Lymphocytes % (Manual) Cancelled, Monocytes % (Manual) Cancelled, Eosinophils % (Manual) Cancelled, Basophils % (Manual) Cancelled, Metamyelocytes % Cancelled, Myelocytes % Cancelled, Promyelocytes % Cancelled, Blast Cells % Cancelled, Plasma Cell % (Manual) Cancelled, Other Cells % Cancelled, Nucleated RBC % Cancelled, Nucleated RBCs/100 WBC Cancelled, Differential Comment Cancelled, Diff Path Review Cancelled, Hypersegmented Neuts Cancelled, Atypical Lymphocytes Cancelled, Reactive Lymphocytes Cancelled, Smudge Cells Cancelled, Toxic Granulation Cancelled, Toxic Vacuolation Cancelled, Dohle Bodies Cancelled, Aimee Rods Cancelled, Platelet Estimate Cancelled, Plt Morphology Comment Cancelled, RBC Morphology Cancelled, Polychromasia Cancelled, Hypochromasia Cancelled, Poikilocytosis Cancelled, Basophilic Stippling Cancelled, Anisocytosis Cancelled, Microcytosis Cancelled, Macrocytosis Cancelled, Spherocytes Cancelled, Sickle Cells Cancelled, Target Cells Cancelled, Tear Drop Cells Cancelled, Ovalocytes Cancelled, Stomatocytes Cancelled, [place] Bodies Cancelled, Mentcle Cells Cancelled, Bite Cells Cancelled, Crenated Cell Cancelled, Acanthocytes (Spur) Cancelled, Rouleaux Cancelled, Schistocytes Cancelled 06/01/19 06:09: Sodium Cancelled, Potassium Cancelled, Chloride Cancelled, Carbon Dioxide Cancelled, Anion Gap Cancelled, BUN Cancelled, Creatinine Cancelled, Estim Creat Clear Calc Cancelled, Est GFR (MDRD) Af Amer Cancelled, Est GFR (MDRD) Non-Af Cancelled, BUN/Creatinine Ratio Cancelled, Glucose Cancelled, Calcium Cancelled, Troponin I Cancelled 06/01/19 06:09: B-Natriuretic Peptide Cancelled 06/01/19 06:24: Sodium 140, Potassium 4.0, Chloride 105, Carbon Dioxide 32.0, Anion Gap 3 L, BUN 24 H, Creatinine 1.09, Estim Creat Clear Calc 62.35, Est GFR (MDRD) Af Amer 91, Est GFR (MDRD) Non-Af 75, BUN/Creatinine Ratio 22.0 H, Glucose 196 H, Calcium 8.8, Troponin I 0.016 06/01/19 06:24: WBC 14.5 H, RBC 5.61, Hgb 14.7, Hct 48.4, MCV 86.3, MCH 26.2 L, MCHC 30.4 L, RDW Std Deviation 42.3, RDW Coeff of Jung 13.6, Plt Count 208, MPV 9.9, Immature Gran % (Auto) 0.200, Neut % (Auto) 85.7 H, Lymph % (Auto) 6.8 L, [place] % (Auto) 6.0, Eos % (Auto) 0.9, Baso % (Auto) 0.4, Absolute Neuts (auto) 12.4 H, Absolute Lymphs (auto) 0.98, Nucleated RBC % 0 06/01/19 06:24: B-Natriuretic Peptide 74.2 06/01/19 06:29: POC Glucose 204 H 06/01/19 08:58: POC Glucose 259 H 06/01/19 13:32: POC Glucose 312 H Current Medications Albuterol/Ipratropium (Duoneb) 3 ml INHALATION Q4HWA.RT [facility] Last Admin: 06/01/19 11:03 Dose: 3 ml Documented by: Bumetanide (Bumex) 1 mg PO DAILY [facility] Last Admin: 06/01/19 12:18 Dose: 1 mg Documented by: Enoxaparin Sodium (Lovenox) 40 mg SC DAILY [facility] Last Admin: 06/01/19 09:43 Dose: Not Given Documented by: Glucagon () 1 mg IM .X1 PRN PRN Reason: Hypoglycemia Dextrose (Dextrose 10%-Water) 250 mls @ 999 mls/hr IV .Q16M PRN; Protocol PRN Reason: HYPOGLYCEMIA Sodium Chloride () 250 mls @ 15 mls/hr IV .[id number] PRN PRN Reason: Saline Flush Insulin Glargine (Lantus ([facility])) 30 units SC BID [facility] Last Admin: 06/01/19 12:18 Dose: 30 units Documented by: Insulin Human Lispro (Humalog Kwikpen ([facility])) 0 unit SC ACHS [facility]; Protocol Last Admin: 06/01/19 14:23 Dose: 6 units Documented by: Insulin Human Lispro (Humalog Kwikpen ([facility])) 40 unit SC ACHS [facility] Last Admin: 06/01/19 14:22 Dose: 40 units Documented by: Liraglutide (Victoza) 0.6 mg SQ DAILY [facility] Methylprednisolone (Solu-Medrol) 40 mg IV Q8 [facility] Last Admin: 06/01/19 14:21 Dose: Not Given Documented by: Non-Formulary Medication (Hydrocortisone 1% Oint) 1 applic topical TID [facility] Non-Formulary Medication (Omeprazole Magnesium [Prilosec Otc]) 20 mg PO DAILY [facility] Sodium Chloride () 10 - 40 ml IV UD PRN PRN Reason: SALINE FLUSH Sodium Chloride ([place] Nasal Triangle) 1 spray NASAL Q4H PRN PRN PRN Reason: dry nares Last Admin: 06/01/19 12:17 Dose: 1 spray Documented by: 53-year-old man with multiple medical problems presents with shortness of breath. It sounds that he could be secondary to bronchospasm seems that when he walked into the cold. He is refusing all therapies other than O2 and inhalers. He has been to multiple different hospitals within the last week and feels that nobody knows what they are doing. He is allergic to prednisone and so he refused to take that for his shortness of breath and even though he has what appears to be a cellulitis with a white count of 14 on his right lower extremity with seepage he refuses antibiotics because we are wrong about the infection, and that he just was treated with antibiotics less than a week ago. He refuses to take Lasix because it does not help his lymphedema but his PCP was able to start him on Bumex. Also he is refusing DVT prophylaxis and is allergic to multiple blood pressure medications. He does require oxygen at rest and with ambulation and therefore plan will be to discharge him tomorrow because he feels that it would be safer if he had some more nebulizer treatments while here. Inpatient E&M: 47228 Init Hosp L3
[2019-06-01 16:21] LABS: Bedside Glucose 320 mg/dL (70-110)
--- NOTE | 2019-06-01 17:14 | NURSING ---
Pt. requested a shower today- same ordered. Pt then requested help because he cannot reach below his waist and the water pressure is not strong enough. Significant amt dried stool removed-- pt states he cannot reach well back there and excessive hair causes trouble with cleaning as well. pt requested to have black tank top that he wore into hospital- however, was not found in pt's room. This RN called ER and was notified that there were no black tank tops found and that they would call if one was found. Notified nurse what room pt requesting shirt is located in. Pt notified of same and states, they better find it because I am a large man and only have 4-5 of those. Pt returned to recliner after shower and dressing changed to IV. Pt had refused multiple dressing options earlier for open area to right lower extremity. Pt notified this RN that he would accept normal saline and skin scrubbed to remove tissue. pt assisted with same. Pt then agreed to Vaseline gauze under ABD pads and covered with Kerlix. He then agreed to have legs lightly wrapped with TRINITY wraps- but is refusing to allow this RN to wrap from toes to knees. He states then he cannot get his shoes on- education provided on probability of edema to bilateral feet. Pt verbalized understanding but states he will not allow this RN to wrap feet. Pt wearing slippers from home that have a terrible odor. After pt shower he stepped directly on them and they are saturated with water. Pt refusing to take them off to dry. Prior to dinner pt demanding to have 40units scheduled insulin given prior to receiving dinner in room. Educated that this is not safe due to possibility that pt would not eat in a timely manner. pt became upset and was demanding sliding scale and 40 units- again staff notified pt that as soon as food arrives let us know and we will make sure insulin is given at that time. Pt visibly upset but verbalized understanding. Pt again reminded that staff much watch out for his safety as well. Pt has moisture attached to oxygen, however, was adamant that it is not working well enough and that he must have saline nasal spray and has called out x2 this shift requesting same. Pt very eager to order own meals and has been doing well with this all shift- including ordering breakfast for AM.
--- NOTE | 2019-06-01 17:19 | CM.UR ---
RN CM Assessment Introduced role of RN CM to patient. Patient is alert and able to participate in RN CM Assessment. Care providers, pharmacy, and demographics verified. No family at bedside. Presentation: shortness of breath Admit Dx: COPD Re-Admit: Yes. Just recently discharged from [place] Barriers/Issues: Motivation. PCP: Dr. Chau Specialists: sees many. Dr. Nguyen for DM; Dr. James for eyes, Dr. Zaman for podiatry, [facility], Dr. Ruff ([facility]) for lymphedema. , Dr. Suh ([facility]) for dermatology. Preferred Pharmacy: [facility] Insurance: [employer] Benefit: yes. No copays or spend down LNOK: Dad LW/HPOA: none, accepted education/booklet. Living Arrangements: Lives with his father in mobile home. States stairs need repaired. Has 5 steps with railing at one entrance and a ramp is at the other entrance. Father a electric truck crane operator and not necessarily around to help this patient. states his Aunt recently too and she left her home to them. It is a modular on a basement. States currently going through probate regarding her property. ADL?s: States doesn't feel safe showering alone so always tries to have someone there with him. Needs help wrapping his legs. States that he can't have a home nurse anymore as he was told he does not qualify. Transportation: Depends on dad and brother. States he can't drive anymore due to all the swelling of his abd-he can't fit behind steering wheel. DME: States he has lymphedema pumps but frequently the fluid build up has been in his abd and the devices don't help with that. Needs O2. DME co: Anyone in network. Agreeable to [employer] for O2. HHC: None SNF: None Goal: Return home. DC PLAN: Home with O2. Tony Wyatt RN, CCM.
[2019-06-01] MEDS: Hydrocortisone 2.5% Crm 1 APPLIC TOPICAL (20:46)
[2019-06-01 22:21] LABS: Bedside Glucose 239 mg/dL (70-110)
[2019-06-01 23:25] LABS: Bedside Glucose 212 mg/dL (70-110)
[2019-06-02 03:10] LABS: Bedside Glucose 201 mg/dL (70-110)
[2019-06-02 03:34] VITALS: BP 151/73; PULSE 94; RESP 18; TEMP 36.3; O2SAT 96
[2019-06-02 06:50] LABS: Absolute Lymphocyte Count 1.21 X10^3/uL (0.83-4.51); Absolute Neutrophil Count 7.4 X10^3/uL (2.0-7.7); Basophil# 0.04 X10^3/uL; Basophil% 0.4 % (0-1); Eosinophil# 0.33 X10^3/uL; Eosinophils% 3.4 % (0-5); Hematocrit 48.7 % (40-54); Hemoglobin 14.4 g/dL (13.0-16.5); Lymphocyte # 1.21 X10^3/ul (4.0); Lymphocyte % 12.4 % (19-41); Mean Corp Hgb Conc 29.6 g/dL (32-36); Mean Corpuscular Hgb 26.3 pg (27.0-32.0); Mean Corpuscular Volume 88.9 fL (80-94); Mean Platelet Vol. 10.1 fl (6.2-12.0); Monocyte# 0.81 X10^3/uL; Monocyte% 8.3 % (0-10); NRBC Flagged by Analyzer 0 % (0-5); Neutrophil # 7.35 X10^3/uL (2.7-7.7); Neutrophil % 75.2 % (47-70); Platelet Count 204 K/mm3 (150-450); RBC Distribution Width CV 14.2 % (11.6-14.6); RBC Distribution Width SD 45.3 fl (35.1-43.9); Red Blood Count 5.48 M/mm3 (4.6-6.2); White Blood Count 9.8 K/mm3 (4.4-11.0)
[2019-06-02 07:17] LABS: Anion Gap 5 (5-15); BUN 32 mg/dL (7-18); BUN/Creat Ratio 23.5 RATIO (10-20); Calcium,Total 8.9 mg/dL (8.5-10.1); Chloride 101 mmol/L (98-107); Creatinine, Serum 1.36 mg/dL (0.70-1.30); EST Glomerular Filtration Rate 58 mL/min (>60); Est Glom Filt Rate - Afr Amer 70 mL/min (>60); Estimated Creatinine Clearance 49.97 ml/min; Glucose 278 mg/dL (74-106); Potassium 4.9 mmol/L (3.5-5.1); Sodium Level 139 mmol/L (136-145)
[2019-06-02 07:21] VITALS: PULSE 95; RESP 21; O2SAT 96
[2019-06-02] MEDS: Ipratropium/Albuterol Sulfate 3 ML AMPUL.NEB INHALATION ×2 (07:21→11:16)
[2019-06-02 07:32] VITALS: BP 134/86; PULSE 92; RESP 18; TEMP 36.8; O2SAT 97
[2019-06-02 07:50] LABS: Bedside Glucose 256 mg/dL (70-110)
[2019-06-02] MEDS: Insulin Lispro 100 UNIT/ML INSULN.PEN SC ×2 (08:11→11:45)
[2019-06-02] MEDS: Insulin Lispro 100 UNIT/ML INSULN.PEN 40 UNIT SC ×2 (08:11→11:45)
[2019-06-02] MEDS: Bumetanide 0.5 MG Tablet 1 MG PO (08:12)
--- NOTE | 2019-06-02 09:52 | NURSING ---
Pt. continues complaining about previous hospitals stays at various hospitals and how his blood sugar was in the 60's at the last hospital stay at time of discharge and that they discharged him anyway. He notified this RN that his blood sugars crashed last night This RN notified pt that his blood sugars were in the 200's. Pt then states, Yes, but they were dropping rapidly. This AM breakfast arrived to patient and pt notified nurse that he wanted both humalog- scheduled, S.S. and lantus as he does at home. All given per pt request.
--- NOTE | 2019-06-02 10:27 | DCINST_ITS ---
- Discharge Diagnoses Current Active Problems: Current Active and Chronic Problems (Last Updated 09/13/18 @ 09:42 by Elba Sharma) Lymphedema (Chronic) COPD (chronic obstructive pulmonary disease) (Chronic) Hypoxemia (Acute) Accelerated hypertension (Acute) HTN (hypertension) (Chronic) Diastolic CHF (Chronic) You will use the following diet at home:: Cardiac - 2-3 g sodium daily, 2000 cc / day Your food should be the consistency of: Regular Your liquids should be the consistency of: Regular/Thin Discharge Activity: Return to Normal Activity Additional Instructions: measure weight daily. if 2 pounds or more weight gain in 24 hours or 5 pounds in 7 days, call your doctor for instructions concerning bumex dose. You will need a BMP (blood test) in 1 week. Allergies/Adverse Reactions: Allergies amlodipine [From Norvasc] Allergy (Verified 09/13/18 09:42) Other apraclonidine Allergy (Verified 09/13/18 09:42) Other diltiazem Allergy (Verified 06/01/19 06:50) Unknown doxycycline Allergy (Verified 09/13/18 09:42) Other enalapril Allergy (Verified 09/13/18 09:42) Other glimepiride Allergy (Verified 09/13/18 09:42) Other glipizide [From Glucotrol] Allergy (Verified 09/13/18 09:42) Other hydralazine Allergy (Verified 09/13/18 09:42) Other ibuprofen Allergy (Verified 09/13/18 09:42) Other Influenza Virus Vaccines Allergy (Verified 06/01/19 06:50) Unknown latex Allergy (Verified 09/13/18 09:42) Other lisinopril Allergy (Verified 09/13/18 09:42) Other metoprolol Allergy (Verified 09/13/18 09:42) Other montelukast Allergy (Verified 06/01/19 06:50) Other blurred vision Penicillins Allergy (Verified 09/13/18 09:42) Other pravastatin Allergy (Verified 09/13/18 09:42) Other prednisone Allergy (Verified 09/13/18 09:42) Other propranolol Allergy (Verified 06/01/19 06:50) Unknown simvastatin [From Zocor] Allergy (Verified 09/13/18 09:42) Other sulfamethoxazole [From Bactrim] Allergy (Verified 09/13/18 09:42) Other trimethoprim [From Bactrim] Allergy (Verified 09/13/18 09:42) Other Medications to take at Discharge Insulin Aspart [Novolog Flexpen] 40 units SUBCUT ACHS 09/13/18 Insulin Glargine,Hum.rec.anlog [Basaglar Kwikpen U-100] 30 unit SQ BID 09/13/18 Bumetanide 1 mg PO DAILY 06/01/19 Hydrocortisone 1% Oint [Hytone] 1 applic TOPICAL TID 06/01/19 Liraglutide [Victoza] 0.6 mg SQ DAILY 06/01/19 Omeprazole Magnesium [Prilosec Otc] 20 mg PO DAILY 06/01/19 Sodium Chloride [Saline Nose [place]] 1 spray NARES Q4H PRN 06/01/19 Primary Care Physician: Armin Chau DO [Primary Care Provider] - Please follow up with your Primary Care Physician in: 1 week Test Results: Test results from this visit will be discussed in further detail at your follow- up appointment, if applicable. Proposed Discharge Date: 06/02/19
[2019-06-02 11:16] VITALS: PULSE 97; RESP 16; O2SAT 96
[2019-06-02 11:24] VITALS: BP 145/81; PULSE 88; RESP 18; TEMP 36.5; O2SAT 100
[2019-06-02 11:28] VITALS: BP 145/81; PULSE 88; RESP 18; TEMP 36.5; O2SAT 100
[2019-06-02 11:36] LABS: Bedside Glucose 287 mg/dL (70-110)
[2019-06-02] MEDS: Hydrocortisone 2.5% Crm 1 APPLIC TOPICAL (11:37)
--- NOTE | 2019-06-02 14:11 | PCM.DC.SUM ---
<Bg Jorge - Last Filed: 06/02/19 14:11> Discharge Date and Diagnosis Date of Admission: 06/01/19 Date of Discharge: 06/02/19 - Primary Discharge Diagnosis Acute hypoxia secondary to acute bronchospasm COPD no acute exacerbation Lymphedema Chronic diastolic congestive heart failure Uncontrolled hypertension Type 2 diabetes History of GERD and stomach ulcer - Secondary Discharge Diagnosis Chronic Problems (Last Updated 09/13/18 @ 09:42 by Elba Sharma) Lymphedema (Chronic) COPD (chronic obstructive pulmonary disease) (Chronic) HTN (hypertension) (Chronic) Diastolic CHF (Chronic) Hospital Course and Treatment Imaging Results: RAD/Chest 1 View (Portable) IMPRESSION: No acute pulmonary findings. Operations: None Procedures: None Summary of Care Provided: Hospital course: The patient is a 53 year old M with past medical history as above who presented to the emergency room by squad for shortness of breath. The patient had 2 recent admissions at [facility] for shortness of breath. He stated that he was supposed to be discharged home with oxygen however if this was reversed at the last minute, and that after he left he went to the pharmacy to brass pickler his medications but when he breathed in the cold air his breathing became suddenly worse. He came to the emergency room and was 86% on 2 L/min nasal cannula. Chest x-ray was negative. His lungs were clear. He did not appear to have an acute CHF or COPD exacerbation at this time. He did have some lower extremity edema with drainage from his lymphedema on the right however he noted that this was chronic and that the drainage was from taking Bumex, and that he did not want to consider any treatment like antibiotics or Lasix for it. He was admitted to the [facility] floor for acute bronchospasm with acute hypoxia. He felt better the first day with aerosol therapy and oxygen. He did not want to consider any prednisone therapy. He also had uncontrolled blood pressure however he has allergies to most blood pressure medications. With aerosols and oxygen his blood pressure improved. Also of note while here he had elevated blood sugars, in the 200s, despite his blood sugar being in the 200s he insisted that his blood sugar was low and suggested that our glucometers were wrong, and refused insulin. The following day he was feeling much better and desired to discharge home. He did qualify for oxygen. He is active at home and in the community and will need oxygen at discharge up to 4 L/min nasal cannula to maintain adequate saturations. He was discharged home in stable condition. I advised him to follow-up closely with his PCP in 1 week. This patient was seen by Bg Jorge PA-C under the supervision of Doctor Ese. [] - Physical Exam Vitals/I&O's: Vital Signs Temp Pulse Resp BP Pulse Ox 97.7 F L 88 18 145/81 H 100 06/02/19 11:28 06/02/19 11:28 06/02/19 11:28 06/02/19 11:28 06/02/19 11:28 Oxygen Flow Rate (L/min) [ 4 AMBULATION with Oxygen] Oxygen Flow Rate (L/min) [At 0 REST on Room Air] Oxygen Flow Rate (L/min) 4 Oxygen Delivery Method Nasal Cannula Weight: 329 lb 12.984 oz Body Mass Index (BMI) 58.3 Finger Stick Blood Glucose 204 Intake and Output for Last 24 Hours 05/31/19 06/01/19 06/03/19 23:59 23:59 00:59 Intake Total 1100 / 1500 1100 / 1100 Balance 1100 / 1500 1100 / 1100 General: Alert, Oriented x3, Cooperative HEENT: Atraumatic, PERRLA, EOMI, Normocephalic Neck: Supple, No JVD, Negative Carotid Bruits Lungs: Clear to auscultation, Normal air movement Cardiovascular: Regular rate, No murmurs Abdomen: Bowel Sounds Present, Soft, Non Tender Extremities: No edema, Capillary Refill Less than 3 Seconds, Edema - lymphedema R>L Skin: No rashes, No breakdown Musculoskeletal: No Tenderness to Palpation of Joints or Extremities Neurological: Cranial nerves II-XII grossly intact Psych/Mental Status: Normal Affect, Appropriate, Alert and oriented to time, place, person, mood and affect Microbiology Past 72 Hours 06/01/19 04:55 Mucosa - Nose Influenza Types A,B Direct FA (FREDDY) - Final Laboratory Results 06/01/19 13:32: POC Glucose 312 H 06/01/19 16:16: POC Glucose 320 H 06/01/19 22:09: POC Glucose 239 H 06/01/19 23:16: POC Glucose 212 H 06/02/19 01:56: POC Glucose 201 H 06/02/19 06:32: WBC 9.8, RBC 5.48, Hgb 14.4, Hct 48.7, MCV 88.9, MCH 26.3 L, MCHC 29.6 L, RDW Std Deviation 45.3 H, RDW Coeff of Jung 14.2, Plt Count 204, MPV 10.1, Immature Gran % (Auto) 0.300, Neut % (Auto) 75.2 H, Lymph % (Auto) 12.4 L, Dickey % (Auto) 8.3, Eos % (Auto) 3.4, Baso % (Auto) 0.4, Absolute Neuts (auto) 7.4, Absolute Lymphs (auto) 1.21, Nucleated RBC % 0 06/02/19 06:32: Sodium 139, Potassium 4.9, Chloride 101, Carbon Dioxide 33.0 H, Anion Gap 5, BUN 32 H, Creatinine 1.36 H, Estim Creat Clear Calc 49.97, Est GFR (MDRD) Af Amer 70, Est GFR (MDRD) Non-Af 58 L, BUN/Creatinine Ratio 23.5 H, Glucose 278 H, Calcium 8.9 06/02/19 07:34: POC Glucose 256 H 06/02/19 11:22: POC Glucose 287 H Current Medications Non-Formulary Medication (Omeprazole Magnesium [Prilosec Otc]) 20 mg PO DAILY RUBEN Discharge Diet: Low fat/ Low Cholesterol, 1800 Calorie Control Diet, 2000 mg Sodium Diet Discharge Activity: Return to Normal Activity Home Medications: Medications to take at Discharge Insulin Aspart [Novolog Flexpen] 40 units SUBCUT ACHS 09/13/18 Insulin Glargine,Hum.rec.anlog [Basaglar Kwikpen U-100] 30 unit SQ BID 09/13/18 Bumetanide 1 mg PO DAILY 06/01/19 Hydrocortisone 1% Oint [Hytone] 1 applic TOPICAL TID 06/01/19 Liraglutide [Victoza] 0.6 mg SQ DAILY 06/01/19 Omeprazole Magnesium [Prilosec Otc] 20 mg PO DAILY 06/01/19 Sodium Chloride [Saline Nose [place]] 1 spray NARES Q4H PRN 06/01/19 Primary Care Physician: Armin Chau DO [Primary Care Provider] - Please follow up with your Primary Care Physician in: 1 week Disposition: Home Minutes spent on discharge:: 35 Patient Condition:: Stable Medical Necessity - Tobacco Use Smoking Status: Never smoker Tobacco Use: Secondhand Meaningful Use Info Meaningful Use Diagnoses (Choose all that apply): None applicable <Pavel Mulligan - Last Filed: 06/02/19 15:05> Discharge Date and Diagnosis - Secondary Discharge Diagnosis Chronic Problems (Last Updated 09/13/18 @ 09:42 by Elba Sharma) Lymphedema (Chronic) COPD (chronic obstructive pulmonary disease) (Chronic) HTN (hypertension) (Chronic) Diastolic CHF (Chronic) Hospital Course and Treatment Summary of Care Provided: The patient is a 53 year old M [] - Physical Exam Vitals/I&O's: Vital Signs Temp Pulse Resp BP Pulse Ox 97.7 F L 88 18 145/81 H 100 06/02/19 11:28 06/02/19 11:28 06/02/19 11:28 06/02/19 11:28 06/02/19 11:28 Oxygen Flow Rate (L/min) [ 4 AMBULATION with Oxygen] Oxygen Flow Rate (L/min) [At 0 REST on Room Air] Oxygen Flow Rate (L/min) 4 Oxygen Delivery Method Nasal Cannula Weight: 329 lb 12.984 oz Body Mass Index (BMI) 58.3 Finger Stick Blood Glucose 204 Intake and Output for Last 24 Hours 05/31/19 06/01/19 06/03/19 23:59 23:59 00:59 Intake Total 1100 / 1500 1100 / 1100 Balance 1100 / 1500 1100 / 1100 Microbiology Past 72 Hours 06/01/19 04:55 Mucosa - Nose Influenza Types A,B Direct FA (FREDDY) - Final Laboratory Results 06/01/19 16:16: POC Glucose 320 H 06/01/19 22:09: POC Glucose 239 H 06/01/19 23:16: POC Glucose 212 H 06/02/19 01:56: POC Glucose 201 H 06/02/19 06:32: WBC 9.8, RBC 5.48, Hgb 14.4, Hct 48.7, MCV 88.9, MCH 26.3 L, MCHC 29.6 L, RDW Std Deviation 45.3 H, RDW Coeff of Jung 14.2, Plt Count 204, MPV 10.1, Immature Gran % (Auto) 0.300, Neut % (Auto) 75.2 H, Lymph % (Auto) 12.4 L, Dickey % (Auto) 8.3, Eos % (Auto) 3.4, Baso % (Auto) 0.4, Absolute Neuts (auto) 7.4, Absolute Lymphs (auto) 1.21, Nucleated RBC % 0 06/02/19 06:32: Sodium 139, Potassium 4.9, Chloride 101, Carbon Dioxide 33.0 H, Anion Gap 5, BUN 32 H, Creatinine 1.36 H, Estim Creat Clear Calc 49.97, Est GFR (MDRD) Af Amer 70, Est GFR (MDRD) Non-Af 58 L, BUN/Creatinine Ratio 23.5 H, Glucose 278 H, Calcium 8.9 06/02/19 07:34: POC Glucose 256 H 06/02/19 11:22: POC Glucose 287 H Addendum: Dr. Mulligan I personally examined the patient and reviewed the chart. I agree with the above. 53-year-old man with multiple medical problems presents with shortness of breath. It sounds that he could be secondary to bronchospasm seems that when he walked into the cold. He is refusing all therapies other than O2 and inhalers. He has been to multiple different hospitals within the last week and feels that nobody knows what they are doing. He is allergic to prednisone and so he refused to take that for his shortness of breath and even though he has what appears to be a cellulitis with a white count of 14 on his right lower extremity with seepage he refuses antibiotics and states that he just was treated with antibiotics less than a week ago. He refuses to take Lasix because it does not help his lymphedema but his PCP was able to start him on Bumex, which she states is making his lower extremity edema worse. He states that he feels better today with his oxygen and would just like to go home. He was discharged home with follow-up to his PCP. Inpatient E&M: [id number] Disch Hosp
== END 2019-06-02 12:35 | disposition home or self-care (01) | DRG 144 ==
LOC: ED 06:22 → MS3 06-27 10:32
PROVIDERS: Admitting Provider Family Medicine; Emergency Provider Emergency Medicine; PCP Family Medicine; Visit Provider Family Medicine
DX: J98.01 Acute bronchospasm (principal); J44.9 Chronic obstructive pulmonary disease, unspecified; R09.02 Hypoxemia; I11.0 Hypertensive heart disease with heart failure; I50.32 Chronic diastolic (congestive) heart failure; Z68.43 Body mass index [BMI] 50.0-59.9, adult; E11.65 Type 2 diabetes mellitus with hyperglycemia; K21.9 Gastro-esophageal reflux disease without esophagitis; I89.0 Lymphedema, not elsewhere classified; E66.01 Morbid (severe) obesity due to excess calories; Z87.11 Personal history of peptic ulcer disease; Z91.19 Patient's noncompliance with other medical treatment and regimen; Z79.4 Long term (current) use of insulin; Z77.22 Contact with and (suspected) exposure to environmental tobacco smoke (acute) (chronic); Z79.899 Other long term (current) drug therapy
CPT/HCPCS: 36415; 36600; 71045; 80048; 82803; 82962; 83880; 84484; 85025; 87804; 93005; 94640; 97802; 99218; 99251; 99285; A4216; G0378; G0463

== ENCOUNTER → 2019-07-09 08:39 | Outpatient (CLI) | payer MEDICAID, SELFPAY ==
[2019-06-01 08:19] VITALS: BMI 58.3
--- NOTE | 2019-07-09 13:55 | PFTCOMP ---
COMPLETE PULMONARY FUNCTION TEST INTERPRETATION Brief HPI: Patient is a 53 year old male, currently under the care of Dr. Chau, who presents to [facility] for complete pulmonary function tests secondary to diagnosis of dyspnea. Respiratory therapist reports good effort and reproducible results. Interpretation: Forced expiration spirometry shows a moderate large airways obstructive ventilatory defect with an FEV1 of 66% predicted. There is a significant bronchodilator response in FVC and FEV1 by strict ATS criteria. Spirograms are of good quality and plateau slowly, indicating slowly emptying areas of the lungs. The respiratory flow volume loop shows decreased expiratory flow rates at all lung volumes consistent with airway obstruction. Lung volumes by body plethysmography show a normal total lung capacity at 4.38 L, 86% predicted. FRC and RV are elevated out of proportion. Lung volume measurements are consistent with air-trapping. Diffusion capacity by carbon monoxide is decreased at 53% predicted. The airway resistance is normal. No previous pulmonary function tests were available for review. Impression: Partially reversible moderate large airways obstructive ventilatory defect with a symmetric reduction diffusion capacity, and a pattern consistent with COPD/asthma overlap syndrome.
== END ==
PROVIDERS: PCP Family Medicine; Referring Provider Family Medicine; Visit Provider Family Medicine
DX: J44.9 Chronic obstructive pulmonary disease, unspecified (principal)
CPT/HCPCS: 94060; 94726; 94729

== ENCOUNTER 2020-06-02 22:47 | Inpatient (IN) | payer MEDICAID, SELFPAY ==
[2020-06-02] VITALS (7 sets, daily range): BP systolic 140–177; BP diastolic 75–120; PULSE 88–102; RESP 12–38; TEMP 36–36.3; O2SAT 67–100; BMI 43.8
--- NOTE | 2020-06-02 22:55 | RAD_ITS ---
STUDY: X-RAY CHEST REASON FOR EXAM: Male, 54 years old. Respiratory distress. TECHNIQUE: Single AP portable view of the chest. COMPARISON: 05/31/2020. FINDINGS: The lungs are well-expanded. There is increasing patchy infiltrate most marked at the lung bases. There is no demonstrated pleural abnormality. Normal size heart. Normal mediastinum and elma. Normal visualized pulmonary arteries. Normal visualized aortic arch and descending thoracic aorta. There are diffuse degenerative changes of the visualized thoracic spine. There is degenerative osteoarthritis of the bilateral shoulders. There is no demonstrated abnormality of the visualized soft tissue structures of the upper abdomen. RAD/Chest 1 View (Portable) IMPRESSION: Bilateral patchy infiltrates most marked at the lung bases. Electronically Signed: Duane Rubio DO at 23:43 EST Tel [phone], Service support ,
--- NOTE | 2020-06-02 22:55 | EKG12_ITS ---
Test Reason : SOB Blood Pressure : / mmHG Vent. Rate : 091 BPM Atrial Rate : 091 BPM P-R Int : 126 ms QRS Dur : 094 ms QT Int : 346 ms P-R-T Axes : 044 109 050 degrees QTc Int : 425 ms Normal sinus rhythm Rightward axis Incomplete right bundle branch block Borderline ECG Confirmed by CRUZ BERGER, FERNANDA ([id number]), market editor GIGI VALENTINE ([id number]) on 06/08/2020 10:22:38 A M Referred By: KIMBER Confirmed By:HOMA ARROYO MD
--- NOTE | 2020-06-02 22:57 | ED.DCSUM_ITS ---
History of Present Illness Chief Complaint: Shortness of Breath Narrative: Patient is a 54-year-old male who presents in respiratory distress. He has a history of lymphedema, CHF, asthma. Patient is on 2 L oxygen at baseline. He also got a new nebulizer. He states this does not allow any of the medication to exhaust who has had a little bit of a sore throat from it but otherwise no recent illness. He states his oxygen quit working today and he developed severe shortness of breath. On EMS arrival pulse ox was in the 50s. He was placed on CPAP. They were unable to get a pulse ox above 75%. Patient denies any chest pain. He denies recent illness such as fever congestion rhinorrhea cough chest pain vomiting diarrhea. He does have chronic edema of his lower extremities. Past Medical History - Allergies and Home Meds Allergies/Adverse Reactions: Allergies amlodipine [From Norvasc] Allergy (Verified 06/02/20 22:55) Other apraclonidine Allergy (Verified 06/02/20 22:55) Other diltiazem Allergy (Verified 06/02/20 22:55) Unknown doxycycline Allergy (Verified 06/02/20 22:55) Other enalapril Allergy (Verified 06/02/20 22:55) Other glimepiride Allergy (Verified 06/02/20 22:55) Other glipizide [From Glucotrol] Allergy (Verified 06/02/20 22:55) Other hydralazine Allergy (Verified 06/02/20 22:55) Other ibuprofen Allergy (Verified 06/02/20 22:55) Other Influenza Virus Vaccines Allergy (Verified 06/02/20 22:55) Unknown latex Allergy (Verified 06/02/20 22:55) Other lisinopril Allergy (Verified 06/02/20 22:55) Other metoprolol Allergy (Verified 06/02/20 22:55) Other montelukast Allergy (Verified 06/02/20 22:55) Other blurred vision Penicillins Allergy (Verified 06/02/20 22:55) Other pravastatin Allergy (Verified 06/02/20 22:55) Other prednisone Allergy (Verified 06/02/20 22:55) Other propranolol Allergy (Verified 06/02/20 22:55) Unknown simvastatin [From Zocor] Allergy (Verified 06/02/20 22:55) Other sulfamethoxazole [From Bactrim] Allergy (Verified 06/02/20 22:55) Other trimethoprim [From Bactrim] Allergy (Verified 06/02/20 22:55) Other Primary Care Physician: Armin Chau DO [Primary Care Provider] - Past Medical History: - - Asthma, CHF, lymphedema Surgical History: tonsillectomy, - - neck cyst removed Smoking Status: Never smoker - Family History Maternal Family History: Family History (Last Reviewed 01/28/20 @ 09:09 by Temitope Hoyt) Father Diabetes Hyperlipemia Other CHF (congestive heart failure) CVA (cerebral vascular accident) Family History: Reports: DVT Paternal Family History: Family History (Last Reviewed 01/28/20 @ 09:09 by Temitope Hoyt) Father Diabetes Hyperlipemia Other CHF (congestive heart failure) CVA (cerebral vascular accident) Family History: Reports: Diabetes, High Cholesterol, Hypertension Review of Systems All systems negative except as indicated General: Denies: Fever Eyes: Denies: Visual changes - bilaterally ENT: Denies: Bilateral ear pain Cardiovascular: Denies: Chest pain Respiratory: Reports: Dyspnea. Denies: Cough Gastrointestinal: Reports: Abdominal pain - Chronic, unchanged. Denies: Nausea, Vomiting, Diarrhea Musculoskeletal: Reports: Swelling. Denies: Myalgias, Arthralgias Skin: Denies: Rash Neurological: Denies: Headache Hematologic: Denies: Easy bruising Allergy: Denies: Uticaria Physical Exam Vital Signs/Narrative: Vital Signs Temp Pulse Resp BP Pulse Ox 06/02/20 22:51 102 H 91 06/02/20 22:49 96.8 F L 102 H 18 140/120 H 67 Inital Vital Signs reviewed: Yes General: Well nourished, Acute Distress Head: Normocephalic Eyes: EOMI ENT: Moist mucous membranes Neck: Supple Cardiovascular: Regular rhythm, Tachycardia Respiratory: - - Patient presents in respiratory distress, speaking 1-2 word sentences, retractions, diminished breath sounds diffusely Abdomen: Soft, Nontender Back: Nontender Extremities: Nontender, - - Chronic venous stasis changes of the lower extremity, edema, skin thickening Skin: Cyanosis, Diaphoresis Neurological: Alert Psychological: Normal affect Diagnostic/Tx/Re-eval Impressions Chest X-Ray 06/02/20 22:55 IMPRESSION: Bilateral patchy infiltrates most marked at the lung bases. Electronically Signed: Duane Rubio DO at 23:43 EST Tel [phone], Service support , 06/02/20 22:55 Chest 1 View (Portable) [RAD] Stat 06/03/20 00:08 Mucosa - Nose SARS-CoV-2 Antigen (Rapid) - Final Laboratory Results 06/02/20 06/02/20 06/02/20 22:50 22:50 22:50 WBC 12.7 H RBC 5.52 Hgb 14.6 Hct 49.5 MCV 89.7 MCH 26.4 L MCHC 29.5 L RDW Std Deviation 44.4 H RDW Coeff of Jung 13.5 Plt Count 210 MPV 10.5 Immature Gran % (Auto) 0.400 Neut % (Auto) 74.8 H Lymph % (Auto) 13.4 L [place] % (Auto) 8.0 Eos % (Auto) 3.0 Baso % (Auto) 0.4 Absolute Neuts (auto) 9.5 H Absolute Lymphs (auto) 1.70 Nucleated RBC % 0 Specimen Type Sample Site pH Bicarbonate Actual Total CO2 Base Excess O2 Saturation O2 % ABG pCO2 ABG pO2 Catarino Test Respiration Rate O2 Delivery Device POC PEEP POC Pressure Suppt Crit Call To/Read Back Sodium 138 Potassium 4.1 Chloride 97 L Carbon Dioxide 38.0 H Anion Gap 3 L BUN 16 Creatinine 1.02 Estim Creat Clear Calc 89.81 Est GFR (MDRD) Af Amer 97 Est GFR (MDRD) Non-Af 80 BUN/Creatinine Ratio 15.7 Glucose 234 H Calcium 9.2 Troponin I < 0.015 B-Natriuretic Peptide 70.4 06/03/20 00:01 WBC RBC Hgb Hct MCV MCH MCHC RDW Std Deviation RDW Coeff of Jung Plt Count MPV Immature Gran % (Auto) Neut % (Auto) Lymph % (Auto) [place] % (Auto) Eos % (Auto) Baso % (Auto) Absolute Neuts (auto) Absolute Lymphs (auto) Nucleated RBC % Specimen Type ART Sample Site L Radial pH 7.30 L Bicarbonate Actual 39.8 H Total CO2 42 Base Excess 13 H O2 Saturation 100 H O2 % 100 ABG pCO2 80.7 H* ABG pO2 338 H* Catarino Test Positive Respiration Rate 12 O2 Delivery Device BiPAP POC PEEP 12 POC Pressure Suppt 10 Crit Call To/Read Back Yes Sodium Potassium Chloride Carbon Dioxide Anion Gap BUN Creatinine Estim Creat Clear Calc Est GFR (MDRD) Af Amer Est GFR (MDRD) Non-Af BUN/Creatinine Ratio Glucose Calcium Troponin I B-Natriuretic Peptide - Medical Decision Making She presented in respiratory distress. He was put on a BiPAP with marked improvement of symptoms. He was put on BiPAP with 100% FiO2 and his pulse ox im proved to 100%. ABG was notable for pH of 7.3 with a PCO2 of 80, bicarb is 40. He had been on the BiPAP for a while and this was drawn. I suspect his initial CO2 was even higher. This is consistent with acute on chronic hypercapnic respiratory failure. He was given a DuoNeb aerosol. He was given IV Solu- Medrol. Chest x-ray showed patchy bibasilar infiltrates. Covid antigen is negative. After speaking the hospitalist he did request the Covid PCR. Patient was covered with IV Levaquin for possible bacterial pneumonia. Patient admitted to the ICU. - Critical Care Time Critical care time (excluding procedures): 30-74 minutes ED Disposition - Plan for ED Patient: Disposition: Acute Care Hospital [facility] Diagnosis: Acute and chronic respiratory failure with hypercapnia Referrals: Armin Chau DO [Primary Care Provider] -
[2020-06-02] MEDS: Ipratropium/Albuterol Sulfate 3 ML AMPUL.NEB INHALATION (23:06)
[2020-06-02 23:22] LABS: Absolute Neutrophil Count 9.5 X10^3/uL (2.0-7.7); Basophil# 0.05 X10^3/uL; Basophil% 0.4 % (0-1); Eosinophil# 0.38 X10^3/uL; Hematocrit 49.5 % (40-54); Hemoglobin 14.6 g/dL (13.0-16.5); Lymphocyte % 13.4 % (19-41); Mean Corp Hgb Conc 29.5 g/dL (32-36); Mean Corpuscular Hgb 26.4 pg (27.0-32.0); Mean Corpuscular Volume 89.7 fL (80-94); Mean Platelet Vol. 10.5 fl (6.2-12.0); Monocyte# 1.01 X10^3/uL; NRBC Flagged by Analyzer 0 % (0-5); Neutrophil # 9.49 X10^3/uL (2.7-7.7); Neutrophil % 74.8 % (47-70); Platelet Count 210 K/mm3 (150-450); RBC Distribution Width CV 13.5 % (11.6-14.6); RBC Distribution Width SD 44.4 fl (35.1-43.9); Red Blood Count 5.52 M/mm3 (4.6-6.2); White Blood Count 12.7 K/mm3 (4.4-11.0)
[2020-06-02 23:26] LABS: Anion Gap 3 (5-15); BUN 16 mg/dL (7-18); BUN/Creat Ratio 15.7 RATIO (10-20); Calcium,Total 9.2 mg/dL (8.5-10.1); Chloride 97 mmol/L (98-107); Creatinine, Serum 1.02 mg/dL (0.70-1.30); EST Glomerular Filtration Rate 80 mL/min (>60); Est Glom Filt Rate - Afr Amer 97 mL/min (>60); Estimated Creatinine Clearance 89.81 ml/min; Glucose 234 mg/dL (74-106); Potassium 4.1 mmol/L (3.5-5.1); Sodium Level 138 mmol/L (136-145)
[2020-06-02 23:46] LABS: BNP,B-Type NATRIURETIC PEPTIDE 70.4 pg/mL (0-100)
[2020-06-03] VITALS (32 sets, daily range): BP systolic 116–204; BP diastolic 62–95; PULSE 64–99; RESP 12–36; TEMP 36.1–36.9; O2SAT 90–99; BMI 54.8; BMI 54.9
[2020-06-03 00:06] LABS: Allen Test Positive; Base Excess 13 mmol/L (-2 to +2); Bicarbonate 39.8 mmol/L (22-26); Blood Gas Specimen Type ART; FI02 100; O2 Delivery Device BiPAP; PEEP 12; PO2 338 mmHG (75-100); PS 10; RR 12; SITE L Radial; SO2 100 % (95-99); Total Carbon Dioxide 42 mmol/L; pCO2 80.7 mmHg (35-45)
--- NOTE | 2020-06-03 00:45 | CPS ---
Critical ABG results read back to Dr. Fleming
[2020-06-03] MEDS: levoFLOXacin IV 750 MG/150 ML BAG 100 MG IV ×2 (01:05→21:47)
[2020-06-03] MEDS: MethylPREDNISolone 125 MG/2 ML Vial IV (01:05)
--- NOTE | 2020-06-03 01:27 | ED.RN ---
SBARQ called to Gala RN in ICU and hospitalist in room with patient at this time
--- NOTE | 2020-06-03 01:29 | PCM.HP.STD ---
<Luba Enciso - Last Filed: 06/03/20 01:29> Problem List (1) Acute and chronic respiratory failure with hypercapnia Status: Acute (2) COPD (chronic obstructive pulmonary disease) Status: Chronic (3) Congestive heart failure (CHF) Status: Acute (4) HTN (hypertension) Status: Chronic (5) Diabetes Status: Chronic Qualifiers: Diabetes mellitus type: type 2 (6) Lymphedema Status: Chronic Comment: Abdomen (7) Lower extremity edema Status: Chronic (8) Morbid obesity with BMI of 40.0-44.9, adult Status: Acute History of Present Illness Date of Admission: 06/03/20 Chief Complaint: Shortness of breath The patient is a 54 year old M who presents to the ER in respiratory distress and has a history of lymphedema, CHF, asthma and chronic edema to bilateral lower legs. Patient wears 2 L nasal cannula oxygen at baseline and reports he recently has been on up to 4 L nasal cannula oxygen. Patient also reports that since he got a new nebulizer he feels he does not get adequate treatment and that his oxygen concentrator also malfunctioned today. Patient was 75% on arrival to ER but is currently 95% on BiPAP with an FiO2 of 40%. Patient is now resting comfortably and states he is no longer short of breath at this time patient denies fever, chills, cough, chest pain, palpitations, nausea, vomiting, diarrhea, or constipation. Past Medical History Past Medical History (Chronic Problems): Chronic Problems (Last Reviewed 06/03/20 @ 02:03 by Luba Enciso NP-C) Respiratory failure (Chronic) Lymphedema (Chronic) Abdomen Diabetes (Chronic) Lymphedema (Chronic) Lower extremity edema (Chronic) COPD (chronic obstructive pulmonary disease) (Chronic) HTN (hypertension) (Chronic) Diastolic CHF (Chronic) Medical History: Medical History (Last Reviewed 06/03/20 @ 02:03 by Luba Enciso NP-C) Lymphedema (Chronic) I89.0 Abdomen Diabetes (Chronic) E11.9 Lymphedema (Chronic) I89.0 Lower extremity edema (Chronic) R60.0 COPD (chronic obstructive pulmonary disease) (Chronic) J44.9 HTN (hypertension) (Chronic) I10 Diastolic CHF (Chronic) I50.30 Accelerated hypertension I10 Cyst of neck Hypoxemia R09.02 Ulcer of left lower extremity with fat layer exposed L97.922 Ulcer of right lower extremity with fat layer exposed L97.912 Non-compliance Z91.19 Allergies amlodipine [From Norvasc] Allergy (Verified 06/02/20 22:55) Other apraclonidine Allergy (Verified 06/02/20 22:55) Other diltiazem Allergy (Verified 06/02/20 22:55) Unknown doxycycline Allergy (Verified 06/02/20 22:55) Other enalapril Allergy (Verified 06/02/20 22:55) Other glimepiride Allergy (Verified 06/02/20 22:55) Other glipizide [From Glucotrol] Allergy (Verified 06/02/20 22:55) Other hydralazine Allergy (Verified 06/02/20 22:55) Other ibuprofen Allergy (Verified 06/02/20 22:55) Other Influenza Virus Vaccines Allergy (Verified 06/02/20 22:55) Unknown latex Allergy (Verified 06/02/20 22:55) Other lisinopril Allergy (Verified 06/02/20 22:55) Other metoprolol Allergy (Verified 06/02/20 22:55) Other montelukast Allergy (Verified 06/02/20 22:55) Other blurred vision Penicillins Allergy (Verified 06/02/20 22:55) Other pravastatin Allergy (Verified 06/02/20 22:55) Other prednisone Allergy (Verified 06/02/20 22:55) Other propranolol Allergy (Verified 06/02/20 22:55) Unknown simvastatin [From Zocor] Allergy (Verified 06/02/20 22:55) Other sulfamethoxazole [From Bactrim] Allergy (Verified 06/02/20 22:55) Other trimethoprim [From Bactrim] Allergy (Verified 06/02/20 22:55) Other Home Medications: Ambulatory Orders Medication Instructions Recorded Insulin Aspart [Novolog Flexpen] 40 units SUBCUT ACHS 09/13/18 Insulin Glargine,Hum.rec.anlog 30 unit SQ BID 09/13/18 [Basaglar Kwikpen U-100] Bumetanide 1 mg PO DAILY 06/01/19 Hydrocortisone 1% Oint [Hytone] 1 applic TOPICAL TID 06/01/19 Liraglutide [Victoza] 0.6 mg SQ DAILY 06/01/19 Omeprazole Magnesium [Prilosec Otc] 20 mg PO DAILY 06/01/19 clotrimazole 1 % topical cream 1 applic TOPICAL TID 10/07/19 ipratropium 0.5 mg-albuterol 3 mg 3 ml INHALATION Q4H PRN #180 ml 10/08/19 (2.5 mg base)/3 mL nebulization soln Budesonide/Formoterol Fumarate 1 puff IH DAILY 06/03/20 [Symbicort 80-4.5 Mcg Inhaler] Clonidine HCl 0.1 mg PO DAILY 06/03/20 Mupirocin [Bactroban] 1 applic TOPICAL TID 06/03/20 Surgical History: Surgical History (Last Reviewed 06/03/20 @ 02:03 by MATTY Luu) Hx of NIKKI Z98.890 Surgical History: tonsillectomy, - - neck cyst removed Psychiatric History: No pertinent psych hx Smoking Status: Never smoker Tobacco Use: Non-smoker Alcohol: None Drugs: None - *Family History Maternal Family History: Family History (Last Reviewed 01/28/20 @ 09:09 by Temitope Hoyt) Father Diabetes Hyperlipemia Other CHF (congestive heart failure) CVA (cerebral vascular accident) History Items: DVT Paternal Family History: Family History (Last Reviewed 01/28/20 @ 09:09 by Temitope Hoyt) Father Diabetes Hyperlipemia Other CHF (congestive heart failure) CVA (cerebral vascular accident) History Items: Diabetes, High Cholesterol, Hypertension Review of Systems Constitutional: Denies: Chills, Fever, Weight Change HEENT: Denies: Head Aches, Sinus Congestion, Sinus Drainage Cardiovascular: Reports: Edema - Bilateral lower extremities, chronic. Denies: Chest Pain, Chest Pressure, Chest Tightness, Palpitations Respiratory: Reports: Shortness of breath at rest, Shortness of breath upon exertion. Denies: Cough, Sputum production, Wheezing Gastrointestinal: Denies: Abdominal Pain, Nausea, Vomiting Genitourinary: Denies: Dysuria Musculoskeletal: Denies: Joint Pain, Joint Tenderness Skin: Reports: Dryness - And redness to bilateral lower extremities, chronic. Denies: Rash, Wounds Neurological: Denies: Numbness, Tingling, Focal weakness Psychiatric: Denies: Anxiety, Depression, Homicidal Ideations, Suicidal Ideations Hematologic/ Lymphatic: Denies: Easy Bruising, Easy Bleeding VTE Information - Inpt Only VTE Present on Admission: No VTE Mechan Device Prophylaxis: None VTE Pharm Prophylaxis ordered?: Yes Patient Problems: Active and Suspected Problems (Last Reviewed 06/03/20 @ 02:03 by Luba Enciso SOLAR PROJECT MANAGER-C) Acute and chronic respiratory failure with hypercapnia (Acute) Congestive heart failure (CHF) (Acute) Morbid obesity with BMI of 40.0-44.9, adult (Acute) - Physical Exam Vitals/I&O's: Vital Signs Temp Pulse Resp BP Pulse Ox 97.8 F 90 23 H 179/75 H 95 06/03/20 01:18 06/03/20 01:18 06/03/20 01:18 06/03/20 01:18 06/03/20 01:18 Oxygen Delivery Method Bi-pap Weight: 323 lb 3.163 oz Body Mass Index (BMI) 43.8 Finger Stick Blood Glucose 204 General: Alert, Oriented x3, Cooperative HEENT: Atraumatic, PERRLA, EOMI, Normocephalic Neck: Supple, No JVD, Negative Carotid Bruits Lungs: Clear to auscultation, Normal air movement, Diminished Cardiovascular: Regular rate, Regular Rhythm, Normal S1, Normal S2, No murmurs Abdomen: Bowel Sounds Present, Soft, Non Tender, Obese - Lymphedema Extremities: Diminished Peripheral Pulses, Edema - Nonpitting bilateral lower extremities Skin: No rashes, No breakdown, - - Bilateral lower extremities dry and red Musculoskeletal: No Tenderness to Palpation of Joints or Extremities Neurological: Cranial nerves II-XII grossly intact Psych/Mental Status: Normal Affect, Appropriate Microbiology Past 72 Hours 06/03/20 00:08 Mucosa - Nose SARS-CoV-2 Antigen (Rapid) - Final Laboratory Results 06/02/20 22:50: WBC 12.7 H, RBC 5.52, Hgb 14.6, Hct 49.5, MCV 89.7, MCH 26.4 L, MCHC 29.5 L, RDW Std Deviation 44.4 H, RDW Coeff of Jung 13.5, Plt Count 210, MPV 10.5, Immature Gran % (Auto) 0.400, Neut % (Auto) 74.8 H, Lymph % (Auto) 13.4 L, [place] % (Auto) 8.0, Eos % (Auto) 3.0, Baso % (Auto) 0.4, Absolute Neuts (auto) 9.5 H, Absolute Lymphs (auto) 1.70, Nucleated RBC % 0 06/02/20 22:50: Sodium 138, Potassium 4.1, Chloride 97 L, Carbon Dioxide 38.0 H, Anion Gap 3 L, BUN 16, Creatinine 1.02, Estim Creat Clear Calc 89.81, Est GFR (MDRD) Af Amer 97, Est GFR (MDRD) Non-Af 80, BUN/Creatinine Ratio 15.7, Glucose 234 H, Calcium 9.2, Troponin I < 0.015 06/02/20 22:50: B-Natriuretic Peptide 70.4 06/03/20 00:01: Specimen Type ART, Sample Site L Radial, pH 7.30 L, Bicarbonate Actual 39.8 H, Total CO2 42, Base Excess 13 H, O2 Saturation 100 H, O2 % 100, ABG pCO2 80.7 H*, ABG pO2 338 H*, Catarino Test Positive, Respiration Rate 12, O2 Delivery Device BiPAP, POC PEEP 12, POC Pressure Suppt 10, Crit Call To/Read Back Yes Current Medications Levofloxacin (Levaquin Iv) 750 mg in 150 mls @ 100 mls/hr IV X1 ONE Stop: 06/03/20 02:11 Last Admin: 06/03/20 01:05 Dose: 100 mls/hr Documented by: Assessment/Plan All Active Problems (Last Reviewed 06/03/20 @ 02:03 by Luba Enciso, SOLAR PROJECT MANAGER-C) Acute and chronic respiratory failure with hypercapnia (Acute) Congestive heart failure (CHF) (Acute) Morbid obesity with BMI of 40.0-44.9, adult (Acute) 1.Acute and chronic respiratory failure with hypercapnia -Continue BiPAP upon admission, titrate FiO2 for pulse ox greater than 88% -DuoNeb and albuterol nebulizer treatments ordered. -IV Solu-Medrol ordered. -IV Levaquin 750 mg ordered 2. COPD -We will hold home inhalers. -DuoNeb and albuterol nebulizer treatments ordered, along with IV Solu-Medrol. 3.Congestive heart failure -BNP 70.4. -Continue bumetanide. 4. Hypertension -Continue clonidine 0.1 mg p.o. daily. -We will order hydralazine 10 mg IV every 6 hours as needed for SBP greater than 160. 5. Diabetes mellitus type 2 -We will hold home dosing of Victoza. -Continue home regimen of insulin aspart and insulin glargine. -We will add sliding scale insulin ACHS due to systemic steroid. 6. Chronic lower leg edema -We will continue home regimen of clotrimazole and hydrocortisone. 7. Morbid obesity -weight loss counseling, manager transmission consult. DVT prophylaxis-subcu Lovenox This patient was seen by MATTY Luu under the supervision of Dr. Scott. <Esteban Scott - Last Filed: 06/03/20 02:44> History of Present Illness The patient is a 54 year old M with history of COPD asthmatic bronchitis on 2 L of home oxygen came to ED with severe shortness of breath, wheezing and could not breathe. Patient recently increased his oxygen to 4 L. On the day of admission, he felt his oxygen not working and pulse ox as per EMS was 50%. Patient also felt chest tightness all around and wheezing. Patient was put on BiPAP in ED. ABG 7.3 on 100% FiO2 12/10 which was titrated down to 40% FiO2. Denies fever chills, recent contact with sick person. He denies recent onset cough, sputum or hemoptysis. Patient said he cannot have Covid vaccine because of egg allergy but exact reason unclear. Chest reviewed in ED showed bilateral patchy infiltrates in both lower lobes. Twelve-lead EKG shows normal sinus rhythm, right axis deviation, incomplete right bundle branch block QTC 425 ms. No significant on previous EKG of May 2019. [] Past Medical History Medical History: Medical History (Last Reviewed 06/03/20 @ 02:03 by Luba Enciso, SOLAR PROJECT MANAGER-C) Lymphedema (Chronic) I89.0 Abdomen Diabetes (Chronic) E11.9 Lymphedema (Chronic) I89.0 Lower extremity edema (Chronic) R60.0 COPD (chronic obstructive pulmonary disease) (Chronic) J44.9 HTN (hypertension) (Chronic) I10 Diastolic CHF (Chronic) I50.30 Accelerated hypertension I10 Cyst of neck Hypoxemia R09.02 Ulcer of left lower extremity with fat layer exposed L97.922 Ulcer of right lower extremity with fat layer exposed L97.912 Non-compliance Z91.19 Allergies amlodipine [From [facility]] Allergy (Verified 06/02/20 22:55) Other apraclonidine Allergy (Verified 06/02/20 22:55) Other diltiazem Allergy (Verified 06/02/20 22:55) Unknown doxycycline Allergy (Verified 06/02/20 22:55) Other enalapril Allergy (Verified 06/02/20 22:55) Other glimepiride Allergy (Verified 06/02/20 22:55) Other glipizide [From Glucotrol] Allergy (Verified 06/02/20 22:55) Other hydralazine Allergy (Verified 06/02/20 22:55) Other ibuprofen Allergy (Verified 06/02/20 22:55) Other Influenza Virus Vaccines Allergy (Verified 06/02/20 22:55) Unknown latex Allergy (Verified 06/02/20 22:55) Other lisinopril Allergy (Verified 06/02/20 22:55) Other metoprolol Allergy (Verified 06/02/20 22:55) Other montelukast Allergy (Verified 06/02/20 22:55) Other blurred vision Penicillins Allergy (Verified 06/02/20 22:55) Other pravastatin Allergy (Verified 06/02/20 22:55) Other prednisone Allergy (Verified 06/02/20 22:55) Other propranolol Allergy (Verified 06/02/20 22:55) Unknown simvastatin [From Zocor] Allergy (Verified 06/02/20 22:55) Other sulfamethoxazole [From Bactrim] Allergy (Verified 06/02/20 22:55) Other trimethoprim [From Bactrim] Allergy (Verified 06/02/20 22:55) Other Surgical History: Surgical History (Last Reviewed 06/03/20 @ 02:03 by MATTY Luu) Hx of NIKKI Z98.890 - *Family History Maternal Family History: Family History (Last Reviewed 01/28/20 @ 09:09 by Temitope Hoyt) Father Diabetes Hyperlipemia Other CHF (congestive heart failure) CVA (cerebral vascular accident) Paternal Family History: Family History (Last Reviewed 01/28/20 @ 09:09 by Temitope Hoyt) Father Diabetes Hyperlipemia Other CHF (congestive heart failure) CVA (cerebral vascular accident) Objective: General: Alert, Oriented x3, Cooperative, morbid obesity BMI 43.8 kg/m? HEENT: On BiPAP. Atraumatic, PERRLA, EOMI, Normocephalic Oral: No Gingival or Mucosal Lesions/ Ulcerations Neck: Supple, No JVD, Negative Carotid Bruits Lungs: Air entry diminished in bilateral lung bases. Bilateral expiratory rhonchi Cardiovascular: Regular rate, Regular Rhythm, Normal S1, Normal S2, No murmurs Abdomen: Bowel Sounds Present, Soft, Non Tender, Non-Distended : No renal angle tenderness. No suprapubic tenderness. Extremities: Bilateral lower extremity lymphedema, pelvic wall lymphedema. Capillary Refill Less than 3 Seconds Skin: Redness in both lower legs below knees, nontender not indurated, venous hypertension. Musculoskeletal: No Tenderness to Palpation of Joints or Extremities Neurological: Cranial nerves II-XII grossly intact, Deep Tendon Reflexes 2+/4 and Symmetrical, Neuro grossly intact Psych/Mental Status: Normal Affect, Appropriate. - Physical Exam Vitals/I&O's: Vital Signs Temp Pulse Resp BP Pulse Ox 97.8 F 90 23 H 179/75 H 95 06/03/20 01:18 06/03/20 01:18 06/03/20 01:18 06/03/20 01:18 06/03/20 01:18 Oxygen Delivery Method Bi-pap Weight: 323 lb 3.163 oz Body Mass Index (BMI) 43.8 Finger Stick Blood Glucose 204 Microbiology Past 72 Hours 06/03/20 00:08 Mucosa - Nose SARS-CoV-2 Antigen (Rapid) - Final Laboratory Results 06/02/20 22:50: WBC 12.7 H, RBC 5.52, Hgb 14.6, Hct 49.5, MCV 89.7, MCH 26.4 L, MCHC 29.5 L, RDW Std Deviation 44.4 H, RDW Coeff of Jung 13.5, Plt Count 210, MPV 10.5, Immature Gran % (Auto) 0.400, Neut % (Auto) 74.8 H, Lymph % (Auto) 13.4 L, [place] % (Auto) 8.0, Eos % (Auto) 3.0, Baso % (Auto) 0.4, Absolute Neuts (auto) 9.5 H, Absolute Lymphs (auto) 1.70, Nucleated RBC % 0 06/02/20 22:50: Sodium 138, Potassium 4.1, Chloride 97 L, Carbon Dioxide 38.0 H, Anion Gap 3 L, BUN 16, Creatinine 1.02, Estim Creat Clear Calc 89.81, Est GFR (MDRD) Af Amer 97, Est GFR (MDRD) Non-Af 80, BUN/Creatinine Ratio 15.7, Glucose 234 H, Calcium 9.2, Troponin I < 0.015 06/02/20 22:50: B-Natriuretic Peptide 70.4 06/03/20 00:01: Specimen Type ART, Sample Site L Radial, pH 7.30 L, Bicarbonate Actual 39.8 H, Total CO2 42, Base Excess 13 H, O2 Saturation 100 H, O2 % 100, ABG pCO2 80.7 H*, ABG pO2 338 H*, Catarino Test Positive, Respiration Rate 12, O2 Delivery Device BiPAP, POC PEEP 12, POC Pressure Suppt 10, Crit Call To/Read Back Yes 06/03/20 00:30: COVID-19 (ANGELICA) Pending Assessment/Plan The patient is a 54 year old M with history of COPD asthmatic bronchitis on 2 L of home oxygen came to ED with severe shortness of breath, wheezing and could not breathe. Patient recently increased his oxygen to 4 L. On the day of admission, he felt his oxygen not working and pulse ox as per EMS was 50%. Patient also felt chest tightness all around and wheezing. Patient was put on BiPAP in ED. Denies fever chills, recent contact with sick person. Patient said he cannot have Covid vaccine because of egg allergy but exact reason unclear. No significant on previous EKG of May 2019. [] This patient was seen in conjunction with NIKKIE Verduzco. I have independently interviewed and examined the patient and reviewed pertinent history, examination findings, laboratory and plan of management. I have reviewed the note and agree with the documented findings with the few additional points. In brief, patient is admitted for acute on chronic combined hypoxic and hypercarbic respiratory failure probably due to bilateral lower lobes pneumonia. ABG 7.3 on 100% FiO2 12/10 which was titrated down to 40% FiO2. Chest reviewed in ED showed bilateral patchy infiltrates in both lower lobes. Twelve-lead EKG shows normal sinus rhythm, right axis deviation, incomplete right bundle branch block QTC 425 ms. Patient is on BiPAP and admitted in ICU. Started on broad-spectrum antibiotic IV Levaquin. Pneumonia work-up. Rapid SARS-CoV-2 antigen negative. Bronchodilator every 4 hourly, IV Solu-Medrol, incentive spirometry/PEEP when off BiPAP. Pulmonary consult requested. Patient sees Dr. Anderson. Last PFT in June 2019 reported a partially reversible moderate large airways obstructive ventilatory defect with symmetric DLCO reduction, consistent with COPD/asthma overlap syndrome. FEV1 66% predicted, TLC 4.3 L, 86% predicted. FRC and RV are elevated. Clinically CHF with bilateral lower extremity lymphedema, venous hypertension: Lasix 40 mg IV twice daily. Hold Bumex while in the hospital. 2D echo ordered as patient never had before Other comorbidities as mentioned above hypertension, diabetes mellitus type 2, morbid obesity: Glucose elevated to 287, likely to go up on IV Solu-Medrol. Home dose insulin continued. Monitor Accu-Cheks and titrate accordingly VTE prophylaxis: High risk Lovenox 30 mg subcu twice daily Living will/advanced directive/end of life care: Patient does not have living will or advanced directive. After discussion of benefits/risks procedures involved with full code, DNR CC arrest and DNR CC, the patient opted for full code. Patient does want artificial life support including intubation, tube feed, ventilator and/chest compression, central venous catheter, vasopressor and DC shock if needed Total time spent in [id number] encounter in discussion of advanced directive 16 minutes. I have discussed my assessment with NIKKIE Verduzco and orders have been reviewed. Inpatient E&M: 06796 Init Hosp L3 Procedures: 25660 Advncd Care Plan 30 Min
[2020-06-03] MEDS: Bumetanide 1 MG/4 ML Vial IV ×3 (04:11→17:08)
[2020-06-03 04:17] LABS: Absolute Lymphocyte Count 0.42 X10^3/uL (0.83-4.51); Absolute Neutrophil Count 12.2 X10^3/uL (2.0-7.7); Basophil# 0.03 X10^3/uL; Basophil% 0.2 % (0-1); Eosinophil# 0.07 X10^3/uL; Eosinophils% 0.5 % (0-5); Hematocrit 46.2 % (40-54); Lymphocyte # 0.42 X10^3/ul (4.0); Lymphocyte % 3.2 % (19-41); Mean Corp Hgb Conc 30.3 g/dL (32-36); Mean Corpuscular Hgb 27.2 pg (27.0-32.0); Mean Corpuscular Volume 89.9 fL (80-94); Mean Platelet Vol. 10.6 fl (6.2-12.0); Monocyte% 1.5 % (0-10); NRBC Flagged by Analyzer 0 % (0-5); Neutrophil # 12.24 X10^3/uL (2.7-7.7); Neutrophil % 94.1 % (47-70); POSITIVE DIFFERENTIAL YES; Platelet Count 187 K/mm3 (150-450); RBC Distribution Width CV 13.4 % (11.6-14.6); Red Blood Count 5.14 M/mm3 (4.6-6.2)
[2020-06-03 04:18] LABS: Differential Indicated SCAN CRITERIA MET
[2020-06-03 04:34] LABS: Anion Gap 3 (5-15); BUN 17 mg/dL (7-18); BUN/Creat Ratio 18.8 RATIO (10-20); Calcium,Total 8.9 mg/dL (8.5-10.1); Chloride 97 mmol/L (98-107); EST Glomerular Filtration Rate 93 mL/min (>60); Est Glom Filt Rate - Afr Amer 112 mL/min (>60); Estimated Creatinine Clearance 74.64 ml/min; Glucose 237 mg/dL (74-106); Potassium 4.6 mmol/L (3.5-5.1); Sodium Level 137 mmol/L (136-145)
--- NOTE | 2020-06-03 05:35 | PCM.CON.CC ---
Reason for Consult Date of Consultation: 06/03/20 Reason for Consultation: Acute on chronic combined respiratory failure History of Present Illness: The patient is a 54-year-old male, with a history as outlined below, who presented to the emergency department on June 02 with complaints of progressive shortness of breath. The patient is currently followed by Dr. Anderson in the pulmonary medicine clinic. He was last seen in January 2020 due to a history of chronic combined respiratory failure, moderate persistent asthma and chronic heart failure with preserved ejection fraction. The patient reportedly utilizes 2 L/min of supplemental oxygen at his baseline. However, he does report that his home oxygen concentrator has been malfunctioning for the last several days. The patient in the past has refused to utilize any form of inhaled steroid due to a reported allergy. In addition, he has refused to utilize any form of nocturnal noninvasive therapy. On presentation to the emergency department, the patient was noted to be afebrile. Laboratory evaluation revealed a white blood cell count of 13,000. Chemistry profile revealed an elevated bicarbonate to 38. Troponin was negative. BNP was unremarkable. Coronavirus PCR was negative. Arterial blood gas obtained on BiPAP revealed a pH of 7.3 with a corresponding PCO2 of 80 and PO2 of 338. Chest x-ray revealed patchy bilateral lower lobe infiltrates. The patient received IV Lasix, aerosol treatments, IV steroids and was started on antimicrobials. Past Medical History Past Medical History (Chronic Problems): Chronic Problems (Last Reviewed 06/03/20 @ 02:03 by Luba Enciso [employer]-C) Respiratory failure (Chronic) Lymphedema (Chronic) Abdomen Diabetes (Chronic) Lymphedema (Chronic) Lower extremity edema (Chronic) COPD (chronic obstructive pulmonary disease) (Chronic) HTN (hypertension) (Chronic) Diastolic CHF (Chronic) Medical History: Medical History (Last Reviewed 06/03/20 @ 02:03 by Luba Enciso [employer]-C) Lymphedema (Chronic) I89.0 Abdomen Diabetes (Chronic) E11.9 Lymphedema (Chronic) I89.0 Lower extremity edema (Chronic) R60.0 COPD (chronic obstructive pulmonary disease) (Chronic) J44.9 HTN (hypertension) (Chronic) I10 Diastolic CHF (Chronic) I50.30 Accelerated hypertension I10 Cyst of neck Hypoxemia R09.02 Ulcer of left lower extremity with fat layer exposed L97.922 Ulcer of right lower extremity with fat layer exposed L97.912 Non-compliance Z91.19 Allergies amlodipine [From Norvasc] Allergy (Verified 06/02/20 22:55) Other apraclonidine Allergy (Verified 06/02/20 22:55) Other diltiazem Allergy (Verified 06/02/20 22:55) Unknown doxycycline Allergy (Verified 06/02/20 22:55) Other enalapril Allergy (Verified 06/02/20 22:55) Other glimepiride Allergy (Verified 06/02/20 22:55) Other glipizide [From Glucotrol] Allergy (Verified 06/02/20 22:55) Other hydralazine Allergy (Verified 06/02/20 22:55) Other ibuprofen Allergy (Verified 06/02/20 22:55) Other Influenza Virus Vaccines Allergy (Verified 06/02/20 22:55) Unknown latex Allergy (Verified 06/02/20 22:55) Other lisinopril Allergy (Verified 06/02/20 22:55) Other metoprolol Allergy (Verified 06/02/20 22:55) Other montelukast Allergy (Verified 06/02/20 22:55) Other blurred vision Penicillins Allergy (Verified 06/02/20 22:55) Other pravastatin Allergy (Verified 06/02/20 22:55) Other prednisone Allergy (Verified 06/02/20 22:55) Other propranolol Allergy (Verified 06/02/20 22:55) Unknown simvastatin [From Zocor] Allergy (Verified 06/02/20 22:55) Other sulfamethoxazole [From Bactrim] Allergy (Verified 06/02/20 22:55) Other trimethoprim [From Bactrim] Allergy (Verified 06/02/20 22:55) Other Home Medications: Ambulatory Orders Medication Instructions Recorded Insulin Aspart [Novolog Flexpen] 40 units SUBCUT ACHS 09/13/18 Insulin Glargine,Hum.rec.anlog 30 unit SQ BID 09/13/18 [Basaglar Kwikpen U-100] Bumetanide 1 mg PO DAILY 06/01/19 Hydrocortisone 1% Oint [Hytone] 1 applic TOPICAL TID 06/01/19 Liraglutide [Victoza] 0.6 mg SQ DAILY 06/01/19 Omeprazole Magnesium [Prilosec Otc] 20 mg PO DAILY 06/01/19 clotrimazole 1 % topical cream 1 applic TOPICAL TID 10/07/19 ipratropium 0.5 mg-albuterol 3 mg 3 ml INHALATION Q4H PRN #180 ml 10/08/19 (2.5 mg base)/3 mL nebulization soln Budesonide/Formoterol Fumarate 1 puff IH DAILY 06/03/20 [Symbicort 80-4.5 Mcg Inhaler] Clonidine HCl 0.1 mg PO DAILY 06/03/20 Mupirocin [Bactroban] 1 applic TOPICAL TID 06/03/20 Surgical History: Surgical History (Last Reviewed 06/03/20 @ 02:03 by MATTY Luu) Hx of NIKKI Z98.890 Surgical History: tonsillectomy, - - neck cyst removed Psychiatric History: No pertinent psych hx Smoking Status: Never smoker Tobacco Use: Non-smoker Alcohol: None Drugs: None - *Family History Maternal Family History: Family History (Last Reviewed 01/28/20 @ 09:09 by Temitope Hoyt) Father Diabetes Hyperlipemia Other CHF (congestive heart failure) CVA (cerebral vascular accident) History Items: DVT Paternal Family History: Family History (Last Reviewed 01/28/20 @ 09:09 by Temitope Hoyt) Father Diabetes Hyperlipemia Other CHF (congestive heart failure) CVA (cerebral vascular accident) History Items: Diabetes, High Cholesterol, Hypertension Review of Systems Constitutional: Denies: Chills, Fever, Weight Change HEENT: Denies: Head Aches, Sinus Congestion, Sinus Drainage Cardiovascular: Reports: Edema. Denies: Chest Pain, Palpitations Respiratory: Reports: Shortness of Breath. Denies: Cough, Sputum production Gastrointestinal: Denies: Abdominal Pain, Nausea, Vomiting Genitourinary: Denies: Dysuria Musculoskeletal: Denies: Joint Pain, Joint Tenderness Skin: Reports: Rash, Skin Changes Neurological: Denies: Numbness, Tingling, Focal weakness Psychiatric: Denies: Anxiety, Depression, Homicidal Ideations, Suicidal Ideations Hematologic/ Lymphatic: Denies: Easy Bruising, Easy Bleeding Patient Problems: Active and Suspected Problems (Last Reviewed 06/03/20 @ 02:03 by Luba Enciso NP-C) Acute and chronic respiratory failure with hypercapnia (Acute) Congestive heart failure (CHF) (Acute) Morbid obesity with BMI of 40.0-44.9, adult (Acute) Objective: The patient's most recent lab work, culture data and imaging studies have all been personally reviewed. Rapid coronavirus antigen testing was negative. Strep and urine Legionella antigens were negative. Respiratory viral panel was negative. Blood cultures are pending. - Physical Exam Vitals/I&O's: Vital Signs Temp Pulse Resp BP Pulse Ox 98.4 F 95 19 H 189/82 H 97 06/03/20 04:00 06/03/20 05:00 06/03/20 05:00 06/03/20 05:20 06/03/20 05:00 Oxygen Delivery Method Bi-pap Weight: 309 lb 11.215 oz Body Mass Index (BMI) 54.8 Finger Stick Blood Glucose 204 Intake and Output for Last 24 Hours 06/01/20 06/02/20 06/03/20 23:59 23:59 23:59 Intake Total 150 / 150 Output Total 700 / 700 Balance -550 / -550 General: Alert, Cooperative, No apparent distress, - - Morbidly obese. Sitting upright in bed. HEENT: Atraumatic, Normocephalic Oral: No Gingival or Mucosal Lesions/ Ulcerations Neck: Supple, No Nodes, Trachea Midline Lungs: No rhonchi, No wheeze, No rales, Diminished Cardiovascular: Regular rate, Regular Rhythm Abdomen: Bowel Sounds Present, Soft, Non Tender, Obese Extremities: No clubbing, No cyanosis, Edema Skin: - - Lower extremity pretibial erythema Musculoskeletal: No Muscle Wasting Lymphatic: No Cervical, Supraclavicular, or Inguinal Adenopathy Neurological: Cranial nerves II-XII grossly intact, Neuro grossly intact Psych/Mental Status: Normal Affect, Appropriate Labs (Last 48 Hours) 06/02/20 06/02/20 06/02/20 22:50 22:50 22:50 WBC 12.7 H RBC 5.52 Hgb 14.6 Hct 49.5 MCV 89.7 MCH 26.4 L MCHC 29.5 L RDW Std Deviation 44.4 H RDW Coeff of Jung 13.5 Plt Count 210 MPV 10.5 Immature Gran % (Auto) 0.400 Neut % (Auto) 74.8 H Lymph % (Auto) 13.4 L [place] % (Auto) 8.0 Eos % (Auto) 3.0 Baso % (Auto) 0.4 Absolute Neuts (auto) 9.5 H Absolute Lymphs (auto) 1.70 Nucleated RBC % 0 Specimen Type Sample Site pH Bicarbonate Actual Total CO2 Base Excess O2 Saturation O2 % ABG pCO2 ABG pO2 Catarino Test Respiration Rate O2 Delivery Device POC PEEP POC Pressure Suppt Crit Call To/Read Back Sodium 138 Potassium 4.1 Chloride 97 L Carbon Dioxide 38.0 H Anion Gap 3 L BUN 16 Creatinine 1.02 Estim Creat Clear Calc 89.81 Est GFR (MDRD) Af Amer 97 Est GFR (MDRD) Non-Af 80 BUN/Creatinine Ratio 15.7 Glucose 234 H Calcium 9.2 Magnesium Troponin I < 0.015 B-Natriuretic Peptide 70.4 COVID-19 (ANGELICA) MRSA (PCR) 06/03/20 06/03/20 06/03/20 00:01 00:30 03:50 WBC 13.0 H RBC 5.14 Hgb 14.0 Hct 46.2 MCV 89.9 MCH 27.2 MCHC 30.3 L RDW Std Deviation 44.0 H RDW Coeff of Jung 13.4 Plt Count 187 MPV 10.6 Immature Gran % (Auto) 0.500 Neut % (Auto) 94.1 H Lymph % (Auto) 3.2 L [place] % (Auto) 1.5 Eos % (Auto) 0.5 Baso % (Auto) 0.2 Absolute Neuts (auto) 12.2 H Absolute Lymphs (auto) 0.42 L Nucleated RBC % 0 Specimen Type ART Sample Site L Radial pH 7.30 L Bicarbonate Actual 39.8 H Total CO2 42 Base Excess 13 H O2 Saturation 100 H O2 % 100 ABG pCO2 80.7 H* ABG pO2 338 H* Catarino Test Positive Respiration Rate 12 O2 Delivery Device BiPAP POC PEEP 12 POC Pressure Suppt 10 Crit Call To/Read Back Yes Sodium Potassium Chloride Carbon Dioxide Anion Gap BUN Creatinine Estim Creat Clear Calc Est GFR (MDRD) Af Amer Est GFR (MDRD) Non-Af BUN/Creatinine Ratio Glucose Calcium Magnesium Troponin I B-Natriuretic Peptide COVID-19 (ANGELICA) Not Detected MRSA (PCR) 06/03/20 06/03/20 03:50 04:07 WBC RBC Hgb Hct MCV MCH MCHC RDW Std Deviation RDW Coeff of Jung Plt Count MPV Immature Gran % (Auto) Neut % (Auto) Lymph % (Auto) [place] % (Auto) Eos % (Auto) Baso % (Auto) Absolute Neuts (auto) Absolute Lymphs (auto) Nucleated RBC % Specimen Type Sample Site pH Bicarbonate Actual Total CO2 Base Excess O2 Saturation O2 % ABG pCO2 ABG pO2 Catarino Test Respiration Rate O2 Delivery Device POC PEEP POC Pressure Suppt Crit Call To/Read Back Sodium 137 Potassium 4.6 Chloride 97 L Carbon Dioxide 37.0 H Anion Gap 3 L BUN 17 Creatinine 0.90 Estim Creat Clear Calc 74.64 Est GFR (MDRD) Af Amer 112 Est GFR (MDRD) Non-Af 93 BUN/Creatinine Ratio 18.8 Glucose 237 H Calcium 8.9 Magnesium 2.0 Troponin I B-Natriuretic Peptide COVID-19 (ANGELICA) MRSA (PCR) Pending Microbiology 06/03/20 04:55 Urine, Clean Catch Legionella Antigen - Final 06/03/20 04:55 Urine, Clean Catch Streptococcus pneumoniae Antigen (M - Final 06/03/20 00:08 Mucosa - Nose SARS-CoV-2 Antigen (Rapid) - Final Clinical Impression(s) from Imaging Studies Chest X-Ray 06/02/20 22:55 IMPRESSION: Bilateral patchy infiltrates most marked at the lung bases. Electronically Signed: Duane Rubio DO at 23:43 EST Tel [phone], Service support , Current Medications Acetaminophen (Acetaminophen 325 Mg Tablet) 650 mg PO Q6H PRN PRN PRN Reason: Pain Score 1-10/Temp > 100.7 F Albuterol Sulfate (Albuterol 2.5 Mg/3 Ml Vial.Neb.) 2.5 mg INHALATION Q2H PRN PRN PRN Reason: SOB/Wheezing Albuterol/Ipratropium (Ipratropium/Albuterol Sulfate 3 Ml Ampul.Neb) 3 ml INHALATION Q4HWA.RT RUBEN Bumetanide (Bumetanide 1 Mg/4 Ml Vial) 1 mg IV BID@1000,1800 RUBEN Last Admin: 06/03/20 04:11 Dose: 1 mg Documented by: Clonidine (Clonidine Hcl 0.1 Mg Tablet) 0.2 mg PO BID RUBEN Clotrimazole (Clotrimazole 1 Tube) 1 applicatio TOPICAL TIDCM RUBEN; Protocol Enoxaparin Sodium (Enoxaparin 40 Mg/0.4 Ml Syringe) 40 mg SC BID RUBEN Guaifenesin (Guaifenesin 1,200 Mg Tablet) 1,200 mg PO BID RUBEN Hydrocortisone (Hydrocortisone 2.5% Crm) 1 applic TOPICAL TIDCM RUBEN Sodium Chloride () 250 mls @ 15 mls/hr IV .[id number] PRN PRN Reason: Saline Flush Levofloxacin (Levaquin Iv) 750 mg in 150 mls @ 100 mls/hr IV Q24@2200 RUBEN Insulin Glargine (Insulin Glargine 100 Units/Ml Pen) 40 units SC BID RUBEN Insulin Human Lispro (Insulin Lispro 100 Unit/Ml Insuln.Pen) 0 unit SC 4X/DAYCM RUBEN; Protocol Insulin Human Lispro (Insulin Lispro 100 Unit/Ml Insuln.Pen) 40 unit SC 4X/DAYCM RUBEN Labetalol HCl (Labetalol 100 Mg/20 Ml Vial) 20 mg IV X1 ONE Stop: 06/03/20 05:31 Methylprednisolone (Methylprednisolone 40 Mg/Ml Vial) 40 mg IV Q8@0200,1000,1700 COUNTS INCLUDE 234 BEDS AT THE [facility] Mupirocin (Mupirocin Ointment 22gm Tube) 1 applic TOPICAL BID COUNTS INCLUDE 234 BEDS AT THE [facility]; Protocol Ondansetron HCl (Ondansetron 4 Mg/2 Ml Vial) 4 mg IV Q8H PRN PRN PRN Reason: NAUSEA/VOMITING Pantoprazole Sodium (Pantoprazole Sodium 20 Mg Tablet) 20 mg PO DAILY COUNTS INCLUDE 234 BEDS AT THE [facility] Sodium Chloride (0.9% Saline Lock 10 Ml Syringe) 10 - 40 ml IV UD PRN PRN Reason: SALINE FLUSH Assessment/Plan Active and Suspected Problems (Last Reviewed 06/03/20 @ 02:03 by Luba Enciso, NIKKIE-C) Acute and chronic respiratory failure with hypercapnia (Acute) Congestive heart failure (CHF) (Acute) Morbid obesity with BMI of 40.0-44.9, adult (Acute) RECOMMENDATIONS: 1. Continue bronchodilator therapy. 2. Continue scheduled diuretic therapy as tolerated by hemodynamics and renal function. 3. Continue empiric antimicrobials. 4. Okay to transition to prednisone beginning tomorrow. 5. Wean supplemental oxygen to maintain saturations at or above 90%. 6. Encourage incentive spirometer use and mobilize patient as tolerated. IMPRESSIONS: 1. Acute on chronic combined respiratory failure The patient has a history of moderate persistent asthma and chronic respiratory failure with a 2 L/min supplemental baseline requirement. I do suspect that his acute presentation was likely secondary to noncompliance with supplemental oxygen in his home environment coupled with the fact that he does not utilize any form of nocturnal Pap therapy. The radiographic findings noted on chest x-ray are certainly concerning for possible pneumonia versus heart failure. The patient has responded appropriately to diuretic therapy and will be continued on empiric antimicrobials. Continue to wean supplemental oxygen as tolerated. I would strongly recommend to continue BiPAP therapy with naps and nightly. Encourage incentive spirometer use and mobilize patient as tolerated. 2. Suspected sleep disordered breathing/obesity hypoventilation The patient has never completed a sleep study in the past and is not currently interested in utilizing any form of Pap therapy. 3. Heart failure with preserved ejection fraction Echocardiogram is pending. Continue gentle diuresis as tolerated by hemodynamics and renal function. 4. Super morbid obesity/hypertension/diabetes mellitus Complicates care, management, recovery and prognosis. Continue home medications as indicated. Physical therapy to evaluate the patient. Case managements/social work to assist with home-going needs. This note was generated with [employer] dictation software. It may contain incorrect words, spelling, and punctuation that were not noted in checking the note before signing. Inpatient E&M: 13790 Init Hosp L3
[2020-06-03] MEDS: cloNIDine HCl 0.2 MG Tablet PO ×2 (05:50→21:39)
[2020-06-03] MEDS: Labetalol (Prefilled) 20 MG/4 ML IV (05:50)
--- NOTE | 2020-06-03 05:55 | ECHOCS_ITS ---
Version 2 Reason For Study: heart failure Procedure This was a 2D Doppler, Color Flow transthoracic echocardiogram. The study was technically difficult. Due to body habitus. Contrast injection was performed. Exam performed portable in ICU/CCU. Left Ventricle Normal LV size. Left ventricular systolic function is normal. The estimated ejection fraction is 70 %. No evidence for diastolic dysfunction. No regional wall motion abnormalities noted. Right Ventricle Normal RV size. Normal systolic function. Atria Normal left atrium. Normal right atrium. No doppler evidence for ASD. Mitral Valve There is no mitral annular calcification. Normal mitral valve. Trivial mitral valve insufficiency. Tricuspid Valve Normal tricuspid valve. Trivial tricuspid valve insufficiency. Unable to estimate RV systolic pressure/pulmonary artery pressure due to technically difficult study. Aortic Valve The aortic valve is not well visualized. Pulmonic Valve The pulmonic valve is not well visualized. Great Vessels Normal sized aortic root. Pericardium/Pleural No pericardial effusion. Medication Diluted definity 4.0ml given slow IV push to enhance endocardial definition. MMode/2D Measurements & Calculations LVIDd: 4.5 cm IVSd: 1.7 cm Ao root diam: 2.9 cm LVIDs: 2.9 cm LVPWd: 1.3 cm FS: 35.4 % LAV(MOD-bp): 48.6 ml LA A4 area: 17.5 cm2 LA dimension(2D): 3.8 cm LAV(MOD-bp) Indexed: 20.9 ml/m2 LAV(MOD-sp2): 46.4 ml LAV(MOD-sp4): 51.1 ml RA A4 area: 11.8 cm2 Time Measurements MV dec time: 0.20 sec Doppler Measurements & Calculations MV E max thien: 115.0 cm/sec Lat Peak E' Thien: 8.4 cm/sec Med Peak E' Thien: 7.7 cm/sec MV A max thien: 93.5 cm/sec E/E' lat: 13.7 E/E' med: 15.0 MV E/A: 1.2 Ao V2 max: 160.3 cm/sec LV V1 max: 139.4 cm/sec PA V2 max: 113.5 cm/sec Ao max P.3 mmHg LV V1 max P.8 mmHg Interpretation Summary The study was technically difficult. Contrast injection was performed. Left ventricular systolic function is normal. The estimated ejection fraction is 70 %. Trivial mitral valve insufficiency. Trivial tricuspid valve insufficiency. Unable to estimate RV systolic pressure/pulmonary artery pressure due to technically difficult study. No evidence for diastolic dysfunction. Ordering Physician: Esteban Scott Referring Physician: Armin Chau Performed By: Zaira Lo, DONATO, RVT
[2020-06-03] MEDS: Ipratropium/Albuterol Sulfate 3 ML AMPUL.NEB INHALATION ×4 (07:03→19:01)
--- NOTE | 2020-06-03 07:41 | PCM.PN.BLA ---
Progress Note Patient is a 54-year-old gentleman who presented with progressive shortness of breath GENERAL: cooperative HEENT: Atraumatic; EYES; Anicteric, Normal Conjunctiva NECK; supple, normal thyroid, RESPIRATORY: Diminished to auscultation CARDIOVASCULAR: Regular S1 S2, GI: soft, normoactive bowel sounds, : No Renal angle tenderness; EXTREMITIES: No edema, no clubbing, MUSCULOSKELETAL: no muscle waisting NEURO: Awake; no lateralizing signs. SKIN: No Rash PSYCH; Flat affect 1. Acute on chronic (hypoxic and hypercapnic respiratory failure) ?Secondary to acute congestive heart failure. CAT scan obtained in the emergency room demonstrated bilateral infiltrate. Patient did have elevated WBC count but no fever 2. Hypertension - Blood pressure controlled, home medications continued with dose adjustment as needed 3. Diabetes mellitus type II -patient's oral hypoglycemics held. Placed on long acting insulin, Accu-Cheks a.c. and at bedtime and covered with sliding scale insulin . COPD with mild exacerbation ?Patient is on systemic steroids as well as antibiotics in addition to bronchodilator treatment and supplemental oxygen 5. Obstructive sleep apnea ?Patient to undergo sleep study as outpatient 6. Morbid obesity with BMI of 55 ?Weight loss advised with patient being a diabetic patient patient qualifies for gastric bypass procedure. Instructed to follow-up with PCP for referral 7. DVT prophylaxis ?Lovenox STROKE Vital Signs/Narrative: Vital Signs Temp Pulse Resp BP Pulse Ox 06/03/20 07:39 94 06/03/20 07:00 90 20 H 146/62 H 94 06/03/20 06:00 95 19 H 165/70 H 93 06/03/20 05:20 189/82 H 06/03/20 05:00 95 19 H 197/76 H 97 06/03/20 04:31 94 36 H 98 06/03/20 04:30 93 28 H 195/91 H 97 06/03/20 04:00 98.4 F 92 24 H 201/91 H 96
[2020-06-03 08:29] LABS: M R Staph aureus DNA By PCR Negative (Negative); Probe Check PASS; Specimen Processing Control PASS
[2020-06-03] MEDS: Enoxaparin 40 MG/0.4 ML Syringe SC ×2 (08:56→21:40)
[2020-06-03] MEDS: Pantoprazole Sodium 20 MG Tablet PO (08:58)
[2020-06-03] MEDS: guaiFENesin 1,200 MG Tablet 1200 MG PO ×2 (08:58→21:39)
[2020-06-03] MEDS: Hydrocortisone 2.5% Crm 1 APPLIC TOPICAL ×3 (08:58→17:07)
[2020-06-03] MEDS: Mupirocin Ointment 22gm Tube 1 APPLIC TOPICAL ×2 (08:59→21:38)
[2020-06-03 09:06] LABS: Bedside Glucose 304 mg/dL (70-110)
[2020-06-03] MEDS: Insulin Lispro 100 UNIT/ML INSULN.PEN 40 UNIT SC ×4 (09:06→21:41)
[2020-06-03] MEDS: Insulin Lispro 100 UNIT/ML INSULN.PEN SC ×4 (09:06→21:41)
[2020-06-03 12:00] LABS: Bedside Glucose 427 mg/dL (70-110)
--- NOTE | 2020-06-03 12:57 | CASEMGMT ---
KALA LUI STUNT DRIVER CM to room to meet with patient for initial transition planning/care coordination assessment. KALA LUI introduced self and role at [facility]. Pt voices understanding and consents to assessment at this time. Pt sitting up in room in no distress at this time. Pt is A/O at this time and answers all questions appropriately. Care providers, pharmacy, and demographics verified/updated at this time. PCP: Dr Armin Chau Specialists:Dr Maurisio Nguyen--water pollution specialist. Pt states he has a virtual appt with him tomorrow. KALA LUI made pt aware that appt would need to be re-scheduled for after he returns home. He voices understanding. Dr Anderson--radio communication coordinator. Dr Tolbert--[facility] lymphedema clinic. Dr James--opthalmologist. Preferred Pharmacy: [facility] in [place] Insurance: [facility] Detective And Intelligence Analyst through [facility]: Heide Wright: [phone]. Prescription Benefit: Yes Living Will/HPOA: does not have LW or HCPOA . Interested in more information but states does not want to talk with SW at this time to complete paperwork. Provided information on advanced directives and given Social Service rac card with number to call if chooses in the future to utilize [facility] social work for advanced directive completion. Educated patient that, if patient so chooses, can come back to [facility] and meet with a SW as an outpatient to complete health care advanced directives. Patient expresses understanding. LNOK: Father. Brother, Chuck Thomas. Living Arrangements:Lives with his father in mobile home w/5 steps to enter. States stairs need repaired and hopes to get them fixed once weather is better. States he is able to manage getting up them for now. Father is a taxi truck driver and is not home often and not around to help pt. Transportation: Pt states drives self for shorter distances. Uses [employer] for appts. Dad or brother will help w/transportation if needed/if they are home. DME: States has the following DME: high rise toilet, glucometer, nebulizer. Pt also states he also has home O2 through [facility] @ 2 L/M continuously and that he can go up to 4 L/M w/exertion, but states the concentrator he has at home is not working and he either needs it serviced or replaced. He has 4 portable oxygen tanks. Pt states, if his brother ends up being who takes him home @ d/c, that his brother can bring in a portable tank to go home on. Pt states he is required to go through [facility], for any oxygen related needs through [facility], stating, I was a bad boy and evidently yelled at them at [facility] and so now I have to call Heide. Pt has a nebulizer. He states he was just recently given a new mouthpiece for the nebulizer and states, It makes my throat sore b/c it does not recycle right. He states [facility]ide is aware and that she told him they are going to send him one of the old kinds but states he has not received it yet. Pt has but does not use: cane, shower chair, walker, HHC/SNF: No history of SNF. Has had [facility] in the past. He states he would like [facility] again. Pt states his PCP, Dr Chau, was working on HHC through [facility], but he is not sure if anything has been approved. Pt was provided with list of [facility] providers including quality and resource use data and consistent with the patient's preferred geographic region and medical needs. Pt states his preferred provider is whoever you can get approved. He states if [facility] is able to accept him, that he would go with them or [facility] if they are able to take him back. He states he was having a nurse come out to his home to help with wrapping his legs 3 x's/week and would like them that often again, if available. He would also be agreeable to PT/OT, if it would be approved. He states he did have therapy in the past, but he was told insurance would not approve therapy until I have lymphedema surgery, but I can't find anyone that will do the surgery. He would also like aides if available. [facility]: Pt states Dr Chau just wrote a script for 14 hrs of aide services and that he just started the process through [facility] yesterday to get approval for aides. He states this has not been approved yet. CCN: Pt made aware of [facility]. He states is interested in this as well. Order placed for referral and Spenser @ [facility] notified. Pt wishes to return home and states has no concerns with going home at time of discharge. Pt states does not smoke or drink ETOH. CM to follow for home oxygen needs and any further discharge planning/needs. Pt voices no further concerns/needs at this time. Advised pt to ask for CM if any further questions/concerns/needs arise. Voices understanding. PLAN: Home w/[facility] for SN, PT/OT, and aide, if available. Pt may benefit from CCN after pt discharged home from [facility]. (order has been placed and CCN notified). CM to f/[facility] either [facility] or [facility] CM re: pt stating O2 concentrator not working correctly and need for nebulizer mouthpiece replacement. Pt being transferred to PCU. PROCESS ENVIRONMENTAL TECHNICIAN Nikki LUI, made aware of above needs. Palliative: Pt qualifies for a Palliative referral per the [facility] palliative screening tool at this time. Dr Jeff made aware and states ok for Palliative referral at this time. Palliative updated at this time via . Face Sheet faxed to Palliative at this time. Jose WOLFE RN, CM
[2020-06-03 16:26] LABS: Bedside Glucose 479 mg/dL (70-110)
--- NOTE | 2020-06-03 21:31 | CPS ---
CURTAIN WORKER tried to decrease BiPAP pressures to help with patient tolerance. Patient not tolerating BiPAP with any pressure change. Became tachypneic with labored breathing worse than when not on the BiPAP. Patient was therefore placed back on 5LNC with better tolerance. CURTAIN WORKER will monitor patient overnight. RN aware.
[2020-06-03 22:20] LABS: Bedside Glucose 380 mg/dL (70-110)
[2020-06-04] VITALS (12 sets, daily range): BP systolic 134–160; BP diastolic 63–82; PULSE 79–97; RESP 12–20; TEMP 36.2–37; O2SAT 94–97
[2020-06-04 06:21] LABS: Hematocrit 42.2 % (40-54); Hemoglobin 12.8 g/dL (13.0-16.5); Mean Corp Hgb Conc 30.3 g/dL (32-36); Mean Platelet Vol. 11.1 fl (6.2-12.0); Platelet Count 186 K/mm3 (150-450); RBC Distribution Width CV 13.5 % (11.6-14.6); RBC Distribution Width SD 43.9 fl (35.1-43.9); Red Blood Count 4.74 M/mm3 (4.6-6.2); White Blood Count 12.2 K/mm3 (4.4-11.0)
[2020-06-04 06:51] LABS: Anion Gap 5 (5-15); BUN 38 mg/dL (7-18); BUN/Creat Ratio 28.6 RATIO (10-20); Chloride 95 mmol/L (98-107); Creatinine, Serum 1.33 mg/dL (0.70-1.30); EST Glomerular Filtration Rate 59 mL/min (>60); Est Glom Filt Rate - Afr Amer 72 mL/min (>60); Estimated Creatinine Clearance 50.51 ml/min; Glucose 291 mg/dL (74-106); Magnesium 2.1 mg/dL (1.6-2.6); Potassium 4.1 mmol/L (3.5-5.1); Sodium Level 134 mmol/L (136-145)
[2020-06-04] MEDS: Ipratropium/Albuterol Sulfate 3 ML AMPUL.NEB INHALATION ×4 (07:11→20:04)
--- NOTE | 2020-06-04 07:25 | PCM.PN.PUL ---
Patient Problems: Active and Suspected Problems (Last Reviewed 06/03/20 @ 02:03 by Luba Enciso PAINT SPECIALIST-C) Acute and chronic respiratory failure with hypercapnia (Acute) Congestive heart failure (CHF) (Acute) Morbid obesity with BMI of 40.0-44.9, adult (Acute) Subjective: The patient was seen and examined at the bedside this morning. Events from the last 24 hours have been reviewed. The patient is currently afebrile, hemodynamically stable and maintaining appropriate oxygen saturations on 4 L/min via nasal cannula. The patient did not tolerate attempts at BiPAP overnight. Creatinine has increased to 1.3 this morning. Therefore, the patient's twice daily IV Bumex dose was discontinued and he was placed back on his home regimen of 1 mg p.o. daily. Objective: The patient's most recent lab work, culture data and imaging studies have all been personally reviewed. Surface echocardiogram revealed an ejection fraction of 70%. Right ventricular systolic pressure was unable to be estimated. Rapid coronavirus antigen testing was negative. Strep and urine Legionella antigens were negative. Respiratory viral panel was negative. Blood cultures are pending. - Physical Exam Vitals/I&O's: Vital Signs Temp Pulse Resp BP Pulse Ox 97.9 F 87 12 154/82 H 94 06/04/20 04:00 06/04/20 04:00 06/04/20 04:00 06/04/20 04:00 06/04/20 04:00 Oxygen Flow Rate (L/min) 4 Oxygen Delivery Method Nasal Cannula Weight: 310 lb 3.046 oz Body Mass Index (BMI) 54.8 Finger Stick Blood Glucose 204 Intake and Output for Last 24 Hours 06/02/20 06/03/20 06/04/20 23:59 23:59 23:59 Intake Total 780 / 1280 1000 / 1000 Output Total 1250 / 1250 Balance -470 / 30 1000 / 1000 General: Alert, Cooperative, No apparent distress HEENT: Atraumatic, PERRLA, Normocephalic Oral: Moist Mucosa, No Gingival or Mucosal Lesions/ Ulcerations Neck: Supple, No Nodes, Trachea Midline Lungs: Diminished Cardiovascular: Regular rate, Regular Rhythm Abdomen: Bowel Sounds Present, Soft, Non Tender, Obese Extremities: No clubbing, No cyanosis, Edema Skin: - - No significant change from previous Musculoskeletal: No Tenderness to Palpation of Joints or Extremities Lymphatic: No Cervical, Supraclavicular, or Inguinal Adenopathy Neurological: Cranial nerves II-XII grossly intact, Neuro grossly intact Psych/Mental Status: Normal Affect, Appropriate Labs (Last 48 Hours) 06/02/20 06/02/20 06/02/20 22:50 22:50 22:50 WBC 12.7 H RBC 5.52 Hgb 14.6 Hct 49.5 MCV 89.7 MCH 26.4 L MCHC 29.5 L RDW Std Deviation 44.4 H RDW Coeff of Jung 13.5 Plt Count 210 MPV 10.5 Immature Gran % (Auto) 0.400 Neut % (Auto) 74.8 H Lymph % (Auto) 13.4 L Spalding % (Auto) 8.0 Eos % (Auto) 3.0 Baso % (Auto) 0.4 Absolute Neuts (auto) 9.5 H Absolute Lymphs (auto) 1.70 Nucleated RBC % 0 Specimen Type Sample Site pH Bicarbonate Actual Total CO2 Base Excess O2 Saturation O2 % ABG pCO2 ABG pO2 Catarino Test Respiration Rate O2 Delivery Device POC PEEP POC Pressure Suppt Crit Call To/Read Back Sodium 138 Potassium 4.1 Chloride 97 L Carbon Dioxide 38.0 H Anion Gap 3 L BUN 16 Creatinine 1.02 Estim Creat Clear Calc 89.81 Est GFR (MDRD) Af Amer 97 Est GFR (MDRD) Non-Af 80 BUN/Creatinine Ratio 15.7 Glucose 234 H Hemoglobin A1c Calcium 9.2 Magnesium Troponin I < 0.015 B-Natriuretic Peptide 70.4 COVID-19 (ANGELICA) MRSA (PCR) POC Glucose 06/03/20 06/03/20 06/03/20 00:01 00:30 03:50 WBC 13.0 H RBC 5.14 Hgb 14.0 Hct 46.2 MCV 89.9 MCH 27.2 MCHC 30.3 L RDW Std Deviation 44.0 H RDW Coeff of Jung 13.4 Plt Count 187 MPV 10.6 Immature Gran % (Auto) 0.500 Neut % (Auto) 94.1 H Lymph % (Auto) 3.2 L Spalding % (Auto) 1.5 Eos % (Auto) 0.5 Baso % (Auto) 0.2 Absolute Neuts (auto) 12.2 H Absolute Lymphs (auto) 0.42 L Nucleated RBC % 0 Specimen Type ART Sample Site L Radial pH 7.30 L Bicarbonate Actual 39.8 H Total CO2 42 Base Excess 13 H O2 Saturation 100 H O2 % 100 ABG pCO2 80.7 H* ABG pO2 338 H* Catarino Test Positive Respiration Rate 12 O2 Delivery Device BiPAP POC PEEP 12 POC Pressure Suppt 10 Crit Call To/Read Back Yes Sodium Potassium Chloride Carbon Dioxide Anion Gap BUN Creatinine Estim Creat Clear Calc Est GFR (MDRD) Af Amer Est GFR (MDRD) Non-Af BUN/Creatinine Ratio Glucose Hemoglobin A1c Calcium Magnesium Troponin I B-Natriuretic Peptide COVID-19 (ANGELICA) Not Detected MRSA (PCR) POC Glucose 06/03/20 06/03/20 06/03/20 03:50 03:50 04:07 WBC RBC Hgb Hct MCV MCH MCHC RDW Std Deviation RDW Coeff of Jung Plt Count MPV Immature Gran % (Auto) Neut % (Auto) Lymph % (Auto) Spalding % (Auto) Eos % (Auto) Baso % (Auto) Absolute Neuts (auto) Absolute Lymphs (auto) Nucleated RBC % Specimen Type Sample Site pH Bicarbonate Actual Total CO2 Base Excess O2 Saturation O2 % ABG pCO2 ABG pO2 Catarino Test Respiration Rate O2 Delivery Device POC PEEP POC Pressure Suppt Crit Call To/Read Back Sodium 137 Potassium 4.6 Chloride 97 L Carbon Dioxide 37.0 H Anion Gap 3 L BUN 17 Creatinine 0.90 Estim Creat Clear Calc 74.64 Est GFR (MDRD) Af Amer 112 Est GFR (MDRD) Non-Af 93 BUN/Creatinine Ratio 18.8 Glucose 237 H Hemoglobin A1c 8.0 H Calcium 8.9 Magnesium 2.0 Troponin I B-Natriuretic Peptide COVID-19 (ANGELICA) MRSA (PCR) Negative POC Glucose 06/03/20 06/03/20 06/03/20 08:54 11:09 16:21 WBC RBC Hgb Hct MCV MCH MCHC RDW Std Deviation RDW Coeff of Jung Plt Count MPV Immature Gran % (Auto) Neut % (Auto) Lymph % (Auto) Spalding % (Auto) Eos % (Auto) Baso % (Auto) Absolute Neuts (auto) Absolute Lymphs (auto) Nucleated RBC % Specimen Type Sample Site pH Bicarbonate Actual Total CO2 Base Excess O2 Saturation O2 % ABG pCO2 ABG pO2 Catarino Test Respiration Rate O2 Delivery Device POC PEEP POC Pressure Suppt Crit Call To/Read Back Sodium Potassium Chloride Carbon Dioxide Anion Gap BUN Creatinine Estim Creat Clear Calc Est GFR (MDRD) Af Amer Est GFR (MDRD) Non-Af BUN/Creatinine Ratio Glucose Hemoglobin A1c Calcium Magnesium Troponin I B-Natriuretic Peptide COVID-19 (ANGELICA) MRSA (PCR) POC Glucose 304 H 427 H 479 H* 06/03/20 06/04/20 06/04/20 21:36 05:54 05:54 WBC 12.2 H RBC 4.74 Hgb 12.8 L Hct 42.2 MCV 89.0 MCH 27.0 MCHC 30.3 L RDW Std Deviation 43.9 RDW Coeff of Jung 13.5 Plt Count 186 MPV 11.1 Immature Gran % (Auto) Neut % (Auto) Lymph % (Auto) Spalding % (Auto) Eos % (Auto) Baso % (Auto) Absolute Neuts (auto) Absolute Lymphs (auto) Nucleated RBC % Specimen Type Sample Site pH Bicarbonate Actual Total CO2 Base Excess O2 Saturation O2 % ABG pCO2 ABG pO2 Catarino Test Respiration Rate O2 Delivery Device POC PEEP POC Pressure Suppt Crit Call To/Read Back Sodium 134 L Potassium 4.1 Chloride 95 L Carbon Dioxide 34.0 H Anion Gap 5 BUN 38 H Creatinine 1.33 H Estim Creat Clear Calc 50.51 Est GFR (MDRD) Af Amer 72 Est GFR (MDRD) Non-Af 59 L BUN/Creatinine Ratio 28.6 H Glucose 291 H Hemoglobin A1c Calcium 9.0 Magnesium 2.1 Troponin I B-Natriuretic Peptide COVID-19 (ANGELICA) MRSA (PCR) POC Glucose 380 H Microbiology 06/03/20 Unknown Mucosa - Nasopharyngeal Respiratory Panel (PCR) - Final 06/03/20 04:55 Urine, Clean Catch Legionella Antigen - Final 06/03/20 04:55 Urine, Clean Catch Streptococcus pneumoniae Antigen (M - Final 06/03/20 00:08 Mucosa - Nose SARS-CoV-2 Antigen (Rapid) - Final Clinical Impression(s) from Imaging Studies Chest X-Ray 06/02/20 22:55 IMPRESSION: Bilateral patchy infiltrates most marked at the lung bases. Electronically Signed: Duane Rubio DO at 23:43 EST Tel [phone], Service support , Current Medications Acetaminophen (Acetaminophen 325 Mg Tablet) 650 mg PO Q6H PRN PRN PRN Reason: Pain Score 1-10/Temp > 100.7 F Albuterol Sulfate (Albuterol 2.5 Mg/3 Ml Vial.Neb.) 2.5 mg INHALATION Q2H PRN PRN PRN Reason: SOB/Wheezing Albuterol/Ipratropium (Ipratropium/Albuterol Sulfate 3 Ml Ampul.Neb) 3 ml INHALATION Q4HWA.RT [facility] Last Admin: 06/04/20 07:11 Dose: 3 ml Documented by: Bumetanide (Bumetanide 1 Mg/4 Ml Vial) 1 mg IV BID@1000,1800 [facility] Last Admin: 06/03/20 17:08 Dose: 1 mg Documented by: Clonidine (Clonidine Hcl 0.2 Mg Tablet) 0.2 mg PO BID [facility] Last Admin: 06/03/20 21:39 Dose: 0.2 mg Documented by: Clotrimazole (Clotrimazole 1 Tube) 1 applicatio TOPICAL TIDCM [facility]; Protocol Last Admin: 06/03/20 17:07 Dose: 1 applic Documented by: Enoxaparin Sodium (Enoxaparin 40 Mg/0.4 Ml Syringe) 40 mg SC BID [facility] Last Admin: 06/03/20 21:40 Dose: 40 mg Documented by: Guaifenesin (Guaifenesin 1,200 Mg Tablet) 1,200 mg PO BID [facility] Last Admin: 06/03/20 21:39 Dose: 1,200 mg Documented by: Hydrocortisone (Hydrocortisone 2.5% Crm) 1 applic TOPICAL TIDCM [facility] Last Admin: 06/03/20 17:07 Dose: 1 applicatio Documented by: Sodium Chloride () 250 mls @ 15 mls/hr IV .[id number] PRN PRN Reason: Saline Flush Levofloxacin (Levaquin Iv) 750 mg in 150 mls @ 100 mls/hr IV Q24@2200 [facility] Last Infusion: 06/03/20 23:17 Dose: Infused Documented by: Insulin Glargine (Insulin Glargine 100 Units/Ml Pen) 40 units SC BID [facility] Last Admin: 06/03/20 21:40 Dose: 40 u Documented by: Insulin Human Lispro (Insulin Lispro 100 Unit/Ml Insuln.Pen) 0 unit SC 4X/DAYCM [facility]; Protocol Last Admin: 06/03/20 21:41 Dose: 10 u Documented by: Insulin Human Lispro (Insulin Lispro 100 Unit/Ml Insuln.Pen) 40 unit SC 4X/DAYCM [facility] Last Admin: 06/03/20 21:41 Dose: 40 u Documented by: Labetalol HCl (Labetalol (Prefilled) 20 Mg/4 Ml) 20 mg IV Q4H PRN PRN PRN Reason: SBP>190 OR DBP>120 Methylprednisolone (Methylprednisolone 40 Mg/Ml Vial) 40 mg IV Q8@0200,1000,1700 [facility] Last Admin: 06/04/20 02:08 Dose: Not Given Documented by: Mupirocin (Mupirocin Ointment 22gm Tube) 1 applic TOPICAL BID [facility]; Protocol Last Admin: 06/03/20 21:38 Dose: 1 applic Documented by: Ondansetron HCl (Ondansetron 4 Mg/2 Ml Vial) 4 mg IV Q8H PRN PRN PRN Reason: NAUSEA/VOMITING Pantoprazole Sodium (Pantoprazole Sodium 20 Mg Tablet) 20 mg PO DAILY [facility] Last Admin: 06/03/20 08:58 Dose: 20 mg Documented by: Sodium Chloride (0.9% Saline Lock 10 Ml Syringe) 10 - 40 ml IV UD PRN PRN Reason: SALINE FLUSH Medical Necessity - Tobacco Use Smoking Status: Never smoker Tobacco Use: Non-smoker Assessment/Plan All Active Problems (Last Reviewed 06/03/20 @ 02:03 by Luba Enciso, PAINT SPECIALIST-C) Acute and chronic respiratory failure with hypercapnia (Acute) Congestive heart failure (CHF) (Acute) Morbid obesity with BMI of 40.0-44.9, adult (Acute) RECOMMENDATIONS: 1. Continue bronchodilator therapy. 2. Transition from IV Bumex to home regimen, given interval development of EITAN. 3. Continue empiric antimicrobials, with plans to complete a 7-day treatment course. 4. Okay to transition to prednisone beginning today. Plan for prednisone taper at discharge. 5. Wean supplemental oxygen to maintain saturations at or above 90%. 6. Encourage incentive spirometer use and mobilize patient as tolerated. 7. Follow-up in the pulmonary medicine clinic within 2 weeks of discharge from the hospital. IMPRESSIONS: 1. Acute on chronic combined respiratory failure The patient has a history of moderate persistent asthma and chronic respiratory failure with a 2 L/min supplemental baseline requirement. I do suspect that his acute presentation was likely secondary to noncompliance with supplemental oxygen in his home environment coupled with the fact that he does not utilize any form of nocturnal Pap therapy. The radiographic findings noted on chest x-ray are certainly concerning for possible pneumonia versus heart failure. The patient has responded appropriately to diuretic therapy and will be continued on empiric antimicrobials. Continue to wean supplemental oxygen as tolerated. I would strongly recommend to continue BiPAP therapy with naps and nightly. Encourage incentive spirometer use and mobilize patient as tolerated. 2. Suspected sleep disordered breathing/obesity hypoventilation The patient has never completed a sleep study in the past and is not currently interested in utilizing any form of Pap therapy. 3. Heart failure with preserved ejection fraction Echocardiogram was largely unremarkable. Continue gentle diuresis as tolerated by hemodynamics and renal function. 4. Super morbid obesity/hypertension/diabetes mellitus Complicates care, management, recovery and prognosis. Continue home medications as indicated. This note was generated with [employer] dictation software. It may contain incorrect words, spelling, and punctuation that were not noted in checking the note before signing. Inpatient E&M: 70218 Subs Hosp L2
--- NOTE | 2020-06-04 07:55 | PCM.PN.HOSP ---
Patient Problems: Active and Suspected Problems (Last Reviewed 06/03/20 @ 02:03 by Luba Enciso TRACK HOE OPERATOR-C) Acute and chronic respiratory failure with hypercapnia (Acute) Congestive heart failure (CHF) (Acute) Morbid obesity with BMI of 40.0-44.9, adult (Acute) Subjective: Patient is a 54-year-old gentleman who presented with progressive shortness of breath. 06/04/2020; patient seen still requiring supplemental oxygen currently on 5 L of oxygen Objective: GENERAL: cooperative HEENT: Atraumatic; EYES; Anicteric, Normal Conjunctiva NECK; supple, normal thyroid, RESPIRATORY: Diminished to auscultation CARDIOVASCULAR: Regular S1 S2, GI: soft, normoactive bowel sounds, : No Renal angle tenderness; EXTREMITIES: No edema, no clubbing, MUSCULOSKELETAL: no muscle waisting NEURO: Awake; no lateralizing signs. SKIN: No Rash PSYCH; Flat affect Vitals/I&O's: Vital Signs Temp Pulse Resp BP Pulse Ox 97.9 F 81 12 154/82 H 94 06/04/20 04:00 06/04/20 07:09 06/04/20 04:00 06/04/20 04:00 06/04/20 04:00 Oxygen Flow Rate (L/min) 4 Oxygen Delivery Method Nasal Cannula Weight: 140.7 kg Body Mass Index (BMI) 54.8 Finger Stick Blood Glucose 204 Intake and Output for Last 24 Hours 06/02/20 06/03/20 06/04/20 23:59 23:59 23:59 Intake Total 780 / 1280 1000 / 1000 Output Total 1250 / 1250 Balance -470 / 30 1000 / 1000 Microbiology Past 72 Hours 06/03/20 Unknown Mucosa - Nasopharyngeal Respiratory Panel (PCR) - Final 06/03/20 04:55 Urine, Clean Catch Legionella Antigen - Final 06/03/20 04:55 Urine, Clean Catch Streptococcus pneumoniae Antigen (M - Final 06/03/20 00:08 Mucosa - Nose SARS-CoV-2 Antigen (Rapid) - Final Laboratory Results 06/03/20 04:07: MRSA (PCR) Negative 06/03/20 08:54: POC Glucose 304 H 06/03/20 11:09: POC Glucose 427 H 06/03/20 16:21: POC Glucose 479 H* 06/03/20 21:36: POC Glucose 380 H 06/04/20 05:54: WBC 12.2 H, RBC 4.74, Hgb 12.8 L, Hct 42.2, MCV 89.0, MCH 27.0, MCHC 30.3 L, RDW Std Deviation 43.9, RDW Coeff of Jung 13.5, Plt Count 186, MPV 11.1 06/04/20 05:54: Sodium 134 L, Potassium 4.1, Chloride 95 L, Carbon Dioxide 34.0 H, Anion Gap 5, BUN 38 H, Creatinine 1.33 H, Estim Creat Clear Calc 50.51, Est GFR (MDRD) Af Amer 72, Est GFR (MDRD) Non-Af 59 L, BUN/Creatinine Ratio 28.6 H, Glucose 291 H, Calcium 9.0, Magnesium 2.1 Current Medications Acetaminophen (Acetaminophen 325 Mg Tablet) 650 mg PO Q6H PRN PRN PRN Reason: Pain Score 1-10/Temp > 100.7 F Albuterol Sulfate (Albuterol 2.5 Mg/3 Ml Vial.Neb.) 2.5 mg INHALATION Q2H PRN PRN PRN Reason: SOB/Wheezing Albuterol/Ipratropium (Ipratropium/Albuterol Sulfate 3 Ml Ampul.Neb) 3 ml INHALATION Q4HWA.RT COUNT INCLUDES THE [facility] Last Admin: 06/04/20 07:11 Dose: 3 ml Documented by: Bumetanide (Bumetanide 0.5 Mg Tablet) 1 mg PO DAILY COUNT INCLUDES THE [facility] Clonidine (Clonidine Hcl 0.2 Mg Tablet) 0.2 mg PO BID COUNT INCLUDES THE [facility] Last Admin: 06/03/20 21:39 Dose: 0.2 mg Documented by: Clotrimazole (Clotrimazole 1 Tube) 1 applicatio TOPICAL TIDCM COUNT INCLUDES THE [facility]; Protocol Last Admin: 06/03/20 17:07 Dose: 1 applic Documented by: Enoxaparin Sodium (Enoxaparin 40 Mg/0.4 Ml Syringe) 40 mg SC BID COUNT INCLUDES THE [facility] Last Admin: 06/03/20 21:40 Dose: 40 mg Documented by: Guaifenesin (Guaifenesin 1,200 Mg Tablet) 1,200 mg PO BID COUNT INCLUDES THE [facility] Last Admin: 06/03/20 21:39 Dose: 1,200 mg Documented by: Hydrocortisone (Hydrocortisone 2.5% Crm) 1 applic TOPICAL TIDCM COUNT INCLUDES THE [facility] Last Admin: 06/03/20 17:07 Dose: 1 applicatio Documented by: Sodium Chloride () 250 mls @ 15 mls/hr IV .[id number] PRN PRN Reason: Saline Flush Levofloxacin (Levaquin Iv) 750 mg in 150 mls @ 100 mls/hr IV Q24@2200 COUNT INCLUDES THE [facility] Last Infusion: 06/03/20 23:17 Dose: Infused Documented by: Insulin Glargine (Insulin Glargine 100 Units/Ml Pen) 40 units SC BID COUNT INCLUDES THE [facility] Last Admin: 06/03/20 21:40 Dose: 40 u Documented by: Insulin Human Lispro (Insulin Lispro 100 Unit/Ml Insuln.Pen) 0 unit SC 4X/DAYCM COUNT INCLUDES THE [facility]; Protocol Last Admin: 06/03/20 21:41 Dose: 10 u Documented by: Insulin Human Lispro (Insulin Lispro 100 Unit/Ml Insuln.Pen) 40 unit SC 4X/DAYCM COUNT INCLUDES THE [facility] Last Admin: 06/03/20 21:41 Dose: 40 u Documented by: Labetalol HCl (Labetalol (Prefilled) 20 Mg/4 Ml) 20 mg IV Q4H PRN PRN PRN Reason: SBP>190 OR DBP>120 Mupirocin (Mupirocin Ointment 22gm Tube) 1 applic TOPICAL BID COUNT INCLUDES THE [facility]; Protocol Last Admin: 06/03/20 21:38 Dose: 1 applic Documented by: Ondansetron HCl (Ondansetron 4 Mg/2 Ml Vial) 4 mg IV Q8H PRN PRN PRN Reason: NAUSEA/VOMITING Pantoprazole Sodium (Pantoprazole Sodium 20 Mg Tablet) 20 mg PO DAILY COUNT INCLUDES THE [facility] Last Admin: 06/03/20 08:58 Dose: 20 mg Documented by: Prednisone (Prednisone 20 Mg Tablet) 40 mg PO DAILY@0800 COUNT INCLUDES THE [facility] Sodium Chloride (0.9% Saline Lock 10 Ml Syringe) 10 - 40 ml IV UD PRN PRN Reason: SALINE FLUSH STROKE Vital Signs/Narrative: Vital Signs Temp Pulse Resp BP Pulse Ox 06/04/20 07:09 81 06/04/20 04:00 97.9 F 87 12 154/82 H 94 Medical Necessity - Tobacco Use Smoking Status: Never smoker Tobacco Use: Non-smoker Assessment/Plan All Active Problems (Last Reviewed 06/03/20 @ 02:03 by Luba Knoble, TRACK HOE OPERATOR-C) Acute and chronic respiratory failure with hypercapnia (Acute) Congestive heart failure (CHF) (Acute) Morbid obesity with BMI of 40.0-44.9, adult (Acute) Patient is a 54-year-old gentleman who presented with progressive shortness of breath 1. Acute on chronic (hypoxic and hypercapnic respiratory failure) ?Secondary to acute congestive heart failure. CAT scan obtained in the emergency room demonstrated bilateral infiltrate. Patient did have elevated WBC count but no fever - 06/04/2020; patient seen still requiring supplemental oxygen currently on 5 L of oxygen 2. Hypertension - Blood pressure controlled, home medications continued with dose adjustment as needed 3. Diabetes mellitus type II -patient's oral hypoglycemics held. Placed on long acting insulin, Accu-Cheks a.c. and at bedtime and covered with sliding scale insulin . COPD with mild exacerbation ?Patient is on systemic steroids as well as antibiotics in addition to bronchodilator treatment and supplemental oxygen 5. Obstructive sleep apnea ?Patient to undergo sleep study as outpatient 6. Morbid obesity with BMI of 55 ?Weight loss advised with patient being a diabetic patient patient qualifies for gastric bypass procedure. Instructed to follow-up with PCP for referral 7. DVT prophylaxis ?Lovenox Inpatient E&M: [id number] Subs Hosp L2
[2020-06-04] MEDS: Insulin Lispro 100 UNIT/ML INSULN.PEN 40 UNIT SC ×3 (08:58→21:11)
[2020-06-04] MEDS: Insulin Lispro 100 UNIT/ML INSULN.PEN SC ×2 (08:58→12:09)
[2020-06-04] MEDS: Pantoprazole Sodium 20 MG Tablet PO (09:12)
[2020-06-04] MEDS: cloNIDine HCl 0.2 MG Tablet PO ×2 (09:12→21:10)
[2020-06-04] MEDS: Bumetanide 0.5 MG Tablet 1 MG PO (09:26)
[2020-06-04 09:31] LABS: Bedside Glucose 253 mg/dL (70-110)
[2020-06-04 12:20] LABS: Bedside Glucose 246 mg/dL (70-110)
--- NOTE | 2020-06-04 13:36 | CASEMGMT ---
Addendum entered by Carolee Alexander 06/05/20 10:19: Late Entry for 06/04/20- TC to Heide, pt case sealer at [facility]. She reports pt is not current with [facility]. She states she is working with [employer] to get his O2 concentrator fixed. States it was replaced approx one wk ago. She is also working with them on the mouthpiece for the nebulizer. She is aware that [facility] referral has been made and this RN CM will try to set up HHC for pt when dc'ing home. Addendum entered by Carolee Alexander 06/04/20 16:08: TC to [facility] to follow up on referral. It has not been reviewed at this time, but intake will call back today with acceptance or denial. Original Note: RN SANIA attempted to set up HHC for SN and TRAIN STARTER. TC to [facility]. They do not provide aide services. TC to [facility]. The patient is out of service area. TC to [facility] who does not take pt insurance. TC to [facility] where pt has been a previous patient. They are unable to staff the case. TC to [facility] and faxed referral. Awaiting returned call for acceptance.
[2020-06-04 15:30] LABS: Bedside Glucose 125 mg/dL (70-110)
[2020-06-04 17:41] LABS: Bedside Glucose 257 mg/dL (70-110)
[2020-06-04 19:31] LABS: Bedside Glucose 263 mg/dL (70-110)
[2020-06-04] MEDS: Mupirocin Ointment 22gm Tube 1 APPLIC TOPICAL (21:10)
[2020-06-04] MEDS: Enoxaparin 40 MG/0.4 ML Syringe SC (21:10)
[2020-06-04] MEDS: levoFLOXacin IV 750 MG/150 ML BAG 100 MG IV (21:12)
[2020-06-04 22:10] LABS: Bedside Glucose 296 mg/dL (70-110)
[2020-06-05] VITALS (7 sets, daily range): BP systolic 148–152; BP diastolic 67–75; PULSE 68–86; RESP 14–24; TEMP 36.1–37; O2SAT 92–100
[2020-06-05] MEDS: Sodium Chloride 0.65% 1 SPRAY SPRAY.BTL 2 SPRAY NASAL (03:48)
[2020-06-05 06:00] LABS: Hematocrit 43.3 % (40-54); Mean Corpuscular Hgb 27.1 pg (27.0-32.0); Mean Corpuscular Volume 90.4 fL (80-94); Mean Platelet Vol. 10.8 fl (6.2-12.0); Platelet Count 192 K/mm3 (150-450); RBC Distribution Width SD 45.8 fl (35.1-43.9); Red Blood Count 4.79 M/mm3 (4.6-6.2); White Blood Count 8.9 K/mm3 (4.4-11.0)
[2020-06-05 06:44] LABS: BUN 38 mg/dL (7-18); BUN/Creat Ratio 30.4 RATIO (10-20); Calcium,Total 9.1 mg/dL (8.5-10.1); Chloride 98 mmol/L (98-107); Creatinine, Serum 1.25 mg/dL (0.70-1.30); EST Glomerular Filtration Rate 64 mL/min (>60); Est Glom Filt Rate - Afr Amer 77 mL/min (>60); Estimated Creatinine Clearance 53.74 ml/min; Glucose 108 mg/dL (74-106); Potassium 4.4 mmol/L (3.5-5.1); Sodium Level 136 mmol/L (136-145)
[2020-06-05 06:45] LABS: Anion Gap 1 (5-15)
[2020-06-05] MEDS: Ipratropium/Albuterol Sulfate 3 ML AMPUL.NEB INHALATION ×2 (07:28→15:42)
[2020-06-05] MEDS: cloNIDine HCl 0.2 MG Tablet PO (09:06)
[2020-06-05] MEDS: Bumetanide 0.5 MG Tablet 1 MG PO (09:06)
[2020-06-05] MEDS: Pantoprazole Sodium 20 MG Tablet PO (09:06)
[2020-06-05] MEDS: Insulin Lispro 100 UNIT/ML INSULN.PEN 40 UNIT SC ×2 (09:07→12:27)
[2020-06-05 09:31] LABS: Bedside Glucose 105 mg/dL (70-110)
--- NOTE | 2020-06-05 09:56 | PCM.CONS.P ---
Problem List (1) Dyspnea Status: Acute Qualifiers: Dyspnea type: shortness of breath Qualified Code(s): R06.02 - Shortness of breath (2) Acute and chronic respiratory failure with hypercapnia Status: Acute (3) Lymphedema Status: Chronic Comment: Abdomen (4) Lower extremity edema Status: Chronic (5) Diastolic CHF Status: Chronic Qualifiers: Heart failure chronicity: chronic Qualified Code(s): I50.32 - Chronic diastolic (congestive) heart failure (6) COPD (chronic obstructive pulmonary disease) Status: Chronic (7) Morbid obesity with BMI of 50.0-59.9, adult Status: Chronic (8) Diabetes Status: Chronic Qualifiers: Diabetes mellitus type: type 2 (9) HTN (hypertension) Status: Chronic History of Present Illness Date of Consult: 06/05/20 Reason for Consult: shortness of breath Requesting physician: [] Primary care physician: Dr. Armin Chau, DO - History of Present Illness The patient is a 54 year old M with a past medical history of COPD, CHF, and chronic respiratory failure dependent on home O2, presented to the ED 06/03/2020 with complaints of increasing requirements of O2 from 2L to 4 L, increased shortness of breath, chest tightness, and weakness. No increase in cough, no fevers, no loss of taste or smell. Covid respiratory panel negative. Chest x-ray showed bilateral patchy infiltrates in both lower lobes. EKG NSR, incomplete R BBB, QTc 425. He was placed on BiPAP in the emergency room admitted to the hospital for further evaluation and management. Pulmonary was consulted, he is an established patient of Dr. Anderson. Last PFTs were in June 2019, FEV1 66% predicted. Echocardiogram showed normal LV systolic function, estimated EF of 70%, trivial MVI and TVI, unable to estimate RVSP secondary to difficult study. There was no evidence of diastolic dysfunction. Patient did not tolerate BiPAP therapy while hospitalized. He was treated for CHF exacerbation. He did have a mild bump in his creatinine 06/04, Bumex IV was discontinued and he was placed back on his once daily oral regimen. Blood cultures NG x48hr. He was weaned to 2 L per nasal cannula, but has required up to 5 L at times, especially with exertion. Patient does have obstructive sleep apnea,?suspected. Hospitalist recommended following up closely with PCP and possible gastric bypass for his morbid obesity. This would likely significantly help his shortness of breath. Patient follows with Dr. Maurisio Nguyen, endocrinology, Dr. Tolbert at [facility] lymphedema clinic, and Dr. James, retail loss prevention specialist. No living will or power of yard assistant. Patient lives with his father in a mobile home with 5 steps to enter. Stairs do need some repairs, as well as part of the mobile home. His father is a truck headlight assembler and not home to patient when needed. Uses [employer] for transportation for his appointments. He does have an oxygen concentrator at home, gets it through [facility] and has a CM through [facility], Heide Wright ([phone]). He has had home health care in the past. He has a nurse come out 3 times a week to wrap his legs. He has a new order for [facility] for counterintelligence agent but has not started services yet. States nobody will come to his location. Patient reports he is unable to have bariatric surgery, states surgeon told him twice that he has not lost enough weight and his BMI is too high. Said he has too high of a risk for surgery. Also will not do the surgery because he refuses to wear CPAP, states he cannot tolerate. Sleeps in chair, cannot lay down without becoming short of breath. Says he wears 2 L of oxygen at rest, 4 L with exertion. It is too much hassle to change his oxygen around on the concentrator, so he just keeps it on 3 to 3-1/2 L. Complains of vertigo when bending over. Says he has had arthritic pain since he was a child, I have allergies all my life which made my arthritis really bad. States he cannot take steroids very well because he swells. Complains that hospital gave him steroids and now he is puffy, denies having CHF exacerbation, states it is all his lymphedema. Also states his lymphedema doctor will not do surgery until he loses some more weight as well. He does have lymphedema pumps, but will not use them. States they are not safe. Patient seems to blame others for all of his issues. He does not seem to take responsibility for any part of his health care. We did discuss palliative care services, his comorbidities, and plan of care upon discharge. Greater than 50% of visit was dedicated to education and counseling regarding his comorbid conditions, education on the above, and discussion of possibly starting counseling services to improve his coping mechanisms. Discussed his medications and plan to collaborate with his other care providers. Patient Problems: Chronic Problems (Last Reviewed 06/03/20 @ 02:03 by Luba Enciso NP-C) Respiratory failure (Chronic) Morbid obesity with BMI of 50.0-59.9, adult (Chronic) Lymphedema (Chronic) Abdomen Diabetes (Chronic) Lymphedema (Chronic) Lower extremity edema (Chronic) COPD (chronic obstructive pulmonary disease) (Chronic) HTN (hypertension) (Chronic) Diastolic CHF (Chronic) Surgical History: tonsillectomy, - - neck cyst removed Psychiatric History: No pertinent psych hx Home Medications: Ambulatory Orders Medication Instructions Recorded Insulin Aspart [Novolog Flexpen] 40 units SUBCUT ACHS 09/13/18 Insulin Glargine,Hum.rec.anlog 30 unit SQ BID 09/13/18 [Basaglar Kwikpen U-100] Bumetanide 1 mg PO DAILY 06/01/19 Hydrocortisone 1% Oint [Hytone] 1 applic TOPICAL TID 06/01/19 Liraglutide [Victoza] 0.6 mg SQ DAILY 06/01/19 Omeprazole Magnesium [Prilosec Otc] 20 mg PO DAILY 06/01/19 clotrimazole 1 % topical cream 1 applic TOPICAL TID 10/07/19 ipratropium 0.5 mg-albuterol 3 mg 3 ml INHALATION Q4H PRN #180 ml 10/08/19 (2.5 mg base)/3 mL nebulization soln Budesonide/Formoterol Fumarate 1 puff IH DAILY 06/03/20 [Symbicort 80-4.5 Mcg Inhaler] Clonidine HCl 0.1 mg PO DAILY 06/03/20 Mupirocin [Bactroban] 1 applic TOPICAL TID 06/03/20 Allergies amlodipine [From Norvasc] Allergy (Verified 06/02/20 22:55) Other apraclonidine Allergy (Verified 06/02/20 22:55) Other diltiazem Allergy (Verified 06/02/20 22:55) Unknown doxycycline Allergy (Verified 06/02/20 22:55) Other enalapril Allergy (Verified 06/02/20 22:55) Other glimepiride Allergy (Verified 06/02/20 22:55) Other glipizide [From Glucotrol] Allergy (Verified 06/02/20 22:55) Other hydralazine Allergy (Verified 06/02/20 22:55) Other ibuprofen Allergy (Verified 06/02/20 22:55) Other Influenza Virus Vaccines Allergy (Verified 06/02/20 22:55) Unknown latex Allergy (Verified 06/02/20 22:55) Other lisinopril Allergy (Verified 06/02/20 22:55) Other metoprolol Allergy (Verified 06/02/20 22:55) Other montelukast Allergy (Verified 06/02/20 22:55) Other blurred vision Penicillins Allergy (Verified 06/02/20 22:55) Other pravastatin Allergy (Verified 06/02/20 22:55) Other prednisone Allergy (Verified 06/02/20 22:55) Other propranolol Allergy (Verified 06/02/20 22:55) Unknown simvastatin [From Zocor] Allergy (Verified 06/02/20 22:55) Other sulfamethoxazole [From Bactrim] Allergy (Verified 06/02/20 22:55) Other trimethoprim [From Bactrim] Allergy (Verified 06/02/20 22:55) Other Maternal Family History: Family History (Last Reviewed 06/05/20 @ 10:15 by MATTY England) Father Diabetes Hyperlipemia Other CHF (congestive heart failure) CVA (cerebral vascular accident) History Items: DVT Paternal Family History: Family History (Last Reviewed 06/05/20 @ 10:15 by MATTY England) Father Diabetes Hyperlipemia Other CHF (congestive heart failure) CVA (cerebral vascular accident) History Items: Diabetes, High Cholesterol, Hypertension - Social History Lives: With Family Smoking Status: Never smoker Tobacco Use: Non-smoker Alcohol: None Drugs: None Code Status: Full Code Review of Systems Constitutional: Reports: Weakness. Denies: Anorexia, Chills, Fever, Weight Change Eyes: Denies: Vision Change HEENT: Reports: Nasal Congestion, Sinus Congestion. Denies: Difficulty Swallowing, Sore Throat Cardiovascular: Reports: Chest Tightness - With exertion at times, Edema, Paroxysmal Noc. Dyspnea. Denies: Chest Pain, Syncope Respiratory: Reports: Cough, Shortness of breath at rest, Shortness of breath upon exertion, Wheezing. Denies: Hemoptysis, Sputum production Gastrointestinal: Reports: Constipation. Denies: Abdominal Pain, Diarrhea, Nausea, Vomiting Genitourinary: Reports: Nocturia. Denies: Hematuria, Incontinence Musculoskeletal: Reports: Back Pain, Joint Pain, Leg Pain Skin: Denies: Rash, Wounds Neurological: Reports: Balance problems, Numbness, Tingling. Denies: Change in Speech Psychiatric: Denies: Anxiety, Depression Hematologic/ Lymphatic: Denies: Anemia, Easy Bruising, Easy Bleeding Physical Exam Subjective: Feeling better today, potentially being discharged. Says his breathing has improved but upset he got steroids. General: Alert, Oriented x3, Cooperative, No apparent distress HEENT: Atraumatic, Normocephalic Oral: Moist Mucosa Neck: Supple, Trachea Midline Lungs: Clear to auscultation, No rhonchi, No wheeze, No rales, Diminished - Severely diminished, - Cardiovascular: Regular rate, Regular Rhythm, Normal S1, Normal S2, - - Distant heart sounds secondary to body habitus Abdomen: Soft, Non Tender, Obese Extremities: No clubbing, No cyanosis, Diminished Peripheral Pulses, - - Bilateral lower extremity lymphedema Skin: No rashes, No breakdown Musculoskeletal: No Tenderness to Palpation of Joints or Extremities Lymphatic: No Cervical, Supraclavicular, or Inguinal Adenopathy Neurological: Cranial nerves II-XII grossly intact Psych/Mental Status: Normal Affect, Appropriate Objective: Vital Signs Temp Pulse Resp BP Pulse Ox 98.6 F 86 18 148/67 H 100 06/05/20 08:59 06/05/20 08:59 06/05/20 08:59 06/05/20 08:59 06/05/20 08:59 Oxygen Flow Rate (L/min) 4 Oxygen Delivery Method Nasal Cannula Weight: 142.1 kg Body Mass Index (BMI) 54.8 Finger Stick Blood Glucose 204 Intake and Output for Last 24 Hours 06/03/20 06/04/20 06/05/20 23:59 23:59 23:59 Intake Total 780 / 1280 1630 / 1870 440 / 440 Output Total 1250 / 1250 Balance -470 / 30 1630 / 1870 440 / 440 Microbiology Past 72 Hours 06/03/20 04:05 Blood Culture - Preliminary Blood Culture (Wb) - Left Hand No growth in 48 hours. 06/03/20 03:50 Blood Culture - Preliminary Blood Culture (Wb) - Right Hand No growth in 48 hours. 06/03/20 Unknown Respiratory Panel (PCR) - Final Mucosa - Nasopharyngeal 06/03/20 04:55 Legionella Antigen - Final Urine, Clean Catch Streptococcus pneumoniae Antigen (M - Final 06/03/20 00:08 SARS-CoV-2 Antigen (Rapid) - Final Mucosa - Nose Laboratory Tests Past 24 Hrs 06/05/20 06/05/20 05:30 05:30 WBC 8.9 RBC 4.79 Hgb 13.0 Hct 43.3 MCV 90.4 MCH 27.1 MCHC 30.0 L RDW Std Deviation 45.8 H RDW Coeff of Jung 14.0 Plt Count 192 MPV 10.8 Sodium 136 Potassium 4.4 Chloride 98 Carbon Dioxide 37.0 H Anion Gap 1 L BUN 38 H Creatinine 1.25 Estim Creat Clear Calc 53.74 Est GFR (MDRD) Af Amer 77 Est GFR (MDRD) Non-Af 64 BUN/Creatinine Ratio 30.4 H Glucose 108 H Calcium 9.1 Assessment/Plan All Active Problems (Last Reviewed 06/03/20 @ 02:03 by Luba Enciso, MOTOR SETTER-C) Acute and chronic respiratory failure with hypercapnia (Acute) Congestive heart failure (CHF) (Acute) Morbid obesity with BMI of 40.0-44.9, adult (Acute) Dyspnea (Acute) 54-year-old with CHF, COPD, respiratory failure, seen for initial palliative care consultation today for symptom management of shortness of breath. 1. Dyspnea/COPD/chronic hypoxic respiratory failure: Multifactorial, he follows with [facility], currently on duo nebs and albuterol nebulizers. Has multiple listed allergies. Home inhalers include Symbicort and DuoNeb nebulizers. Would not add roxanol at this point, he seems to be stable when CHF and RF are at baseline. Will f/u as outpatient. 2. Morbid obesity/immobility: Would be candidate for bariatric surgery evaluation. Poor mobility, has chronic lymphedema. States he needs surgery but nobody will operate on him due to his weight and comorbidities. 3. HTN/type 2 diabetes: Complicates overall care, management, recovery, and prognosis. Defer management to PCP. Patient does seem quite anxious, he would benefit from counseling services as he does not seem to take responsibility for any part of his life situation. We will contact our TIME STUDY STATISTICIAN after RN evaluation to assess for his needs. Thank you for the opportunity to participate in this patient's care, please do not hesitate to contact life care palliative with any further questions or concerns. Direct line palliative: [phone] This note was generated with [employer] dictation software. It may contain incorrect words, spelling, and punctuation that were not noted in checking the note before signing.
--- NOTE | 2020-06-05 10:21 | CASEMGMT ---
RN CM updated that [facility] is unable to accept pt. TC to [facility] to see if they are able to accept pt for SN services only. Faxed referral and awaiting acceptance.
--- NOTE | 2020-06-05 11:17 | DCINST_ITS ---
- Discharge Diagnoses Current Active Problems: Current Active and Chronic Problems (Last Reviewed 06/03/20 @ 02:03 by Luba Enciso NP-Jeff) Acute and chronic respiratory failure with hypercapnia (Acute) Congestive heart failure (CHF) (Acute) Morbid obesity with BMI of 40.0-44.9, adult (Acute) Dyspnea (Acute) Morbid obesity with BMI of 50.0-59.9, adult (Chronic) Lymphedema (Chronic) Abdomen Diabetes (Chronic) Lower extremity edema (Chronic) COPD (chronic obstructive pulmonary disease) (Chronic) HTN (hypertension) (Chronic) Diastolic CHF (Chronic) You will use the following diet at home:: Calorie/Carbohydrate Controlled (specify 1200, 1400, etc) - 1800 Your food should be the consistency of: Regular Discharge Activity: Return to Normal Activity, May not drive while taking narcotic pain medications. Allergies/Adverse Reactions: Allergies amlodipine [From Norvasc] Allergy (Verified 06/02/20 22:55) Other apraclonidine Allergy (Verified 06/02/20 22:55) Other diltiazem Allergy (Verified 06/02/20 22:55) Unknown doxycycline Allergy (Verified 06/02/20 22:55) Other enalapril Allergy (Verified 06/02/20 22:55) Other glimepiride Allergy (Verified 06/02/20 22:55) Other glipizide [From Glucotrol] Allergy (Verified 06/02/20 22:55) Other hydralazine Allergy (Verified 06/02/20 22:55) Other ibuprofen Allergy (Verified 06/02/20 22:55) Other Influenza Virus Vaccines Allergy (Verified 06/02/20 22:55) Unknown latex Allergy (Verified 06/02/20 22:55) Other lisinopril Allergy (Verified 06/02/20 22:55) Other metoprolol Allergy (Verified 06/02/20 22:55) Other montelukast Allergy (Verified 06/02/20 22:55) Other blurred vision Penicillins Allergy (Verified 06/02/20 22:55) Other pravastatin Allergy (Verified 06/02/20 22:55) Other prednisone Allergy (Verified 06/02/20 22:55) Other propranolol Allergy (Verified 06/02/20 22:55) Unknown simvastatin [From Zocor] Allergy (Verified 03/09/21 22:55) Other sulfamethoxazole [From Bactrim] Allergy (Verified 06/02/20 22:55) Other trimethoprim [From Bactrim] Allergy (Verified 06/02/20 22:55) Other Medications to take at Discharge Insulin Aspart [Novolog Flexpen] 40 units SUBCUT ACHS 09/13/18 Insulin Glargine,Hum.rec.anlog [Basaglar Kwikpen U-100] 30 unit SQ BID 09/13/18 Bumetanide 1 mg PO DAILY 06/01/19 Hydrocortisone 1% Oint [Hytone] 1 applic TOPICAL TID 06/01/19 Liraglutide [Victoza] 0.6 mg SQ DAILY 06/01/19 Omeprazole Magnesium [Prilosec Otc] 20 mg PO DAILY 06/01/19 clotrimazole 1 % topical cream 1 applic TOPICAL TID 10/07/19 ipratropium 0.5 mg-albuterol 3 mg (2.5 mg base)/3 mL nebulization soln 3 ml INHALATION Q4H PRN #180 ml 10/08/19 Budesonide/Formoterol Fumarate [Symbicort 80-4.5 Mcg Inhaler] 1 puff IH DAILY 06/03/20 Clonidine HCl 0.1 mg PO DAILY 06/03/20 Mupirocin [Bactroban] 1 applic TOPICAL TID 06/03/20 levoFLOXacin tablet [Levaquin tablet] 750 mg PO DAILY #5 tab 06/05/20 The following prescriptions were given: levoFLOXacin tablet [Levaquin tablet] 750 mg PO DAILY #5 tab Transmission Status: Pending to [id number] Primary Care Physician: Armin Chau DO [Primary Care Provider] - Please follow up with your Primary Care Physician in: in 1 week Test Results: Test results from this visit will be discussed in further detail at your follow- up appointment, if applicable. Proposed Discharge Date: 06/05/20
--- NOTE | 2020-06-05 11:21 | PCM.DC.SUM ---
Discharge Date and Diagnosis - Problem List Patient Problems: Active and Suspected Problems (Last Reviewed 06/03/20 @ 02:03 by Luba Enciso NP-Jeff) Acute and chronic respiratory failure with hypercapnia (Acute) Congestive heart failure (CHF) (Acute) Morbid obesity with BMI of 40.0-44.9, adult (Acute) Dyspnea (Acute) Date of Admission: 06/05/20 Date of Discharge: 06/05/20 - Primary Discharge Diagnosis Acute Problems: Active Problems (Last Reviewed 06/03/20 @ 02:03 by Luba Enciso NP-C) Acute and chronic respiratory failure with hypercapnia (Acute) Congestive heart failure (CHF) (Acute) Morbid obesity with BMI of 40.0-44.9, adult (Acute) Dyspnea (Acute) - Secondary Discharge Diagnosis Chronic Problems: Chronic Problems (Last Reviewed 06/03/20 @ 02:03 by Luba Enciso NP-Jeff) Respiratory failure (Chronic) Morbid obesity with BMI of 50.0-59.9, adult (Chronic) Lymphedema (Chronic) Abdomen Diabetes (Chronic) Lymphedema (Chronic) Lower extremity edema (Chronic) COPD (chronic obstructive pulmonary disease) (Chronic) HTN (hypertension) (Chronic) Diastolic CHF (Chronic) Hospital Course and Treatment Imaging Results: Clinical Impression(s) from Imaging Studies Chest X-Ray 06/02/20 22:55 IMPRESSION: Bilateral patchy infiltrates most marked at the lung bases. Electronically Signed: Duane Rubio DO at 23:43 EST Tel [phone], Service support , Operations: None Summary of Care Provided: 1. Acute on chronic (hypoxic and hypercapnic respiratory failure) ?Secondary to acute congestive heart failure. CAT scan obtained in the emergency room demonstrated bilateral infiltrate. Patient did have elevated WBC count but no fever - 06/04/2020; patient seen still requiring supplemental oxygen currently on 5 L of oxygen -1221; patient was assessed to be stable for discharge. He was instructed to follow-up with his PCP for subsequent management The echo obtained during patient hospitalization demonstrated Left ventricular systolic function is normal. The estimated ejection fraction is 70 %. Trivial mitral valve insufficiency. Trivial tricuspid valve insufficiency. Unable to estimate RV systolic pressure/pulmonary artery pressure due to technically difficult study. No evidence for diastolic dysfunction. 2. Hypertension - Blood pressure controlled, home medications continued with dose adjustment as needed 3. Diabetes mellitus type II -patient's oral hypoglycemics held. Placed on long acting insulin, Accu-Cheks a.c. and at bedtime and covered with sliding scale insulin . COPD with mild exacerbation ?Patient is on systemic steroids as well as antibiotics in addition to bronchodilator treatment and supplemental oxygen 5. Obstructive sleep apnea ?Patient to undergo sleep study as outpatient 6. Morbid obesity with BMI of 55 ?Weight loss advised with patient being a diabetic patient patient qualifies for gastric bypass procedure. Instructed to follow-up with PCP for referral 7. DVT prophylaxis ?Lovenox Patient Problems: Active and Suspected Problems (Last Reviewed 06/03/20 @ 02:03 by Luba Enciso NP-C) Acute and chronic respiratory failure with hypercapnia (Acute) Congestive heart failure (CHF) (Acute) Morbid obesity with BMI of 40.0-44.9, adult (Acute) Dyspnea (Acute) - Physical Exam Vitals/I&O's: Vital Signs Temp Pulse Resp BP Pulse Ox 98.6 F 86 18 148/67 H 100 06/05/20 08:59 06/05/20 08:59 06/05/20 08:59 06/05/20 08:59 06/05/20 08:59 Oxygen Flow Rate (L/min) 4 Oxygen Delivery Method Nasal Cannula Weight: 142.1 kg Body Mass Index (BMI) 54.8 Finger Stick Blood Glucose 204 Intake and Output for Last 24 Hours 06/03/20 06/04/20 06/05/20 23:59 23:59 23:59 Intake Total 780 / 1280 1630 / 1870 440 / 440 Output Total 1250 / 1250 Balance -470 / 30 1630 / 1870 440 / 440 General: Alert HEENT: Atraumatic Lungs: Diminished Cardiovascular: Regular rate, Regular Rhythm Psych/Mental Status: Normal Affect Microbiology Past 72 Hours 06/03/20 04:05 Blood Culture (Wb) - Left Hand Blood Culture - Preliminary No growth in 48 hours. 06/03/20 03:50 Blood Culture (Wb) - Right Hand Blood Culture - Preliminary No growth in 48 hours. 06/03/20 Unknown Mucosa - Nasopharyngeal Respiratory Panel (PCR) - Final 06/03/20 04:55 Urine, Clean Catch Legionella Antigen - Final 06/03/20 04:55 Urine, Clean Catch Streptococcus pneumoniae Antigen (M - Final 06/03/20 00:08 Mucosa - Nose SARS-CoV-2 Antigen (Rapid) - Final Laboratory Results 06/04/20 12:05: POC Glucose 246 H 06/04/20 15:16: POC Glucose 125 H 06/04/20 17:31: POC Glucose 257 H 06/04/20 19:25: POC Glucose 263 H 06/04/20 21:07: POC Glucose 296 H 06/05/20 05:30: WBC 8.9, RBC 4.79, Hgb 13.0, Hct 43.3, MCV 90.4, MCH 27.1, MCHC 30.0 L, RDW Std Deviation 45.8 H, RDW Coeff of Jung 14.0, Plt Count 192, MPV 10.8 06/05/20 05:30: Sodium 136, Potassium 4.4, Chloride 98, Carbon Dioxide 37.0 H, Anion Gap 1 L, BUN 38 H, Creatinine 1.25, Estim Creat Clear Calc 53.74, Est GFR (MDRD) Af Amer 77, Est GFR (MDRD) Non-Af 64, BUN/Creatinine Ratio 30.4 H, Glucose 108 H, Calcium 9.1 06/05/20 08:50: POC Glucose 105 Current Medications Acetaminophen (Acetaminophen 325 Mg Tablet) 650 mg PO Q6H PRN PRN PRN Reason: Pain Score 1-10/Temp > 100.7 F Albuterol Sulfate (Albuterol 2.5 Mg/3 Ml Vial.Neb.) 2.5 mg INHALATION Q2H PRN PRN PRN Reason: SOB/Wheezing Albuterol/Ipratropium (Ipratropium/Albuterol Sulfate 3 Ml Ampul.Neb) 3 ml INHALATION Q4HWA.RT RUBEN Last Admin: 06/05/20 07:28 Dose: 3 ml Documented by: Bumetanide (Bumetanide 0.5 Mg Tablet) 1 mg PO DAILY [facility] Last Admin: 06/05/20 09:06 Dose: 1 mg Documented by: Clonidine (Clonidine Hcl 0.2 Mg Tablet) 0.2 mg PO BID [facility] Last Admin: 06/05/20 09:06 Dose: 0.2 mg Documented by: Clotrimazole (Clotrimazole 1 Tube) 1 applicatio TOPICAL TIDCM [facility]; Protocol Last Admin: 06/05/20 09:06 Dose: Not Given Documented by: Enoxaparin Sodium (Enoxaparin 40 Mg/0.4 Ml Syringe) 40 mg SC BID [facility] Last Admin: 06/05/20 09:08 Dose: Not Given Documented by: Guaifenesin (Guaifenesin 1,200 Mg Tablet) 1,200 mg PO BID [facility] Last Admin: 06/05/20 09:08 Dose: Not Given Documented by: Hydrocortisone (Hydrocortisone 2.5% Crm) 1 applic TOPICAL TIDCM [facility] Last Admin: 06/05/20 09:07 Dose: Not Given Documented by: Sodium Chloride () 250 mls @ 15 mls/hr IV .[id number] PRN PRN Reason: Saline Flush Levofloxacin (Levaquin Iv) 750 mg in 150 mls @ 100 mls/hr IV Q24@2200 [facility] Last Infusion: 06/04/20 22:42 Dose: Infused Documented by: Insulin Glargine (Insulin Glargine 100 Units/Ml Pen) 50 units SC BID [facility] Last Admin: 06/05/20 09:08 Dose: 30 u Documented by: Insulin Human Lispro (Insulin Lispro 100 Unit/Ml Insuln.Pen) 0 unit SC 4X/DAYCM [facility]; Protocol Last Admin: 06/04/20 21:10 Dose: Not Given Documented by: Insulin Human Lispro (Insulin Lispro 100 Unit/Ml Insuln.Pen) 40 unit SC 4X/DAYCM [facility] Last Admin: 06/05/20 09:07 Dose: 30 u Documented by: Labetalol HCl (Labetalol (Prefilled) 20 Mg/4 Ml) 20 mg IV Q4H PRN PRN PRN Reason: SBP>190 OR DBP>120 Mupirocin (Mupirocin Ointment 22gm Tube) 1 applic TOPICAL BID [facility]; Protocol Last Admin: 06/05/20 09:07 Dose: Not Given Documented by: Ondansetron HCl (Ondansetron 4 Mg/2 Ml Vial) 4 mg IV Q8H PRN PRN PRN Reason: NAUSEA/VOMITING Pantoprazole Sodium (Pantoprazole Sodium 20 Mg Tablet) 20 mg PO DAILY [facility] Last Admin: 06/05/20 09:06 Dose: 20 mg Documented by: Prednisone (Prednisone 20 Mg Tablet) 40 mg PO DAILY@0800 [facility] Last Admin: 06/05/20 09:06 Dose: Not Given Documented by: Sodium Chloride (0.9% Saline Lock 10 Ml Syringe) 10 - 40 ml IV UD PRN PRN Reason: SALINE FLUSH Sodium Chloride (Sodium Chloride 0.65% 1 [place].Btl) 2 spray NASAL BID [facility] Last Admin: 06/05/20 03:48 Dose: 2 spray Documented by: Discharge Diet: 1800 Calorie Control Diet, 8 Cup Fluid Restriciton Discharge Activity: Return to Normal Activity, May not drive while taking narcotic pain medications. Home Medications: Medications to take at Discharge Insulin Aspart [Novolog Flexpen] 40 units SUBCUT ACHS 09/13/18 Insulin Glargine,Hum.rec.anlog [Basaglar Kwikpen U-100] 30 unit SQ BID 09/13/18 Bumetanide 1 mg PO DAILY 06/01/19 Hydrocortisone 1% Oint [Hytone] 1 applic TOPICAL TID 06/01/19 Liraglutide [Victoza] 0.6 mg SQ DAILY 06/01/19 Omeprazole Magnesium [Prilosec Otc] 20 mg PO DAILY 06/01/19 clotrimazole 1 % topical cream 1 applic TOPICAL TID 10/07/19 ipratropium 0.5 mg-albuterol 3 mg (2.5 mg base)/3 mL nebulization soln 3 ml INHALATION Q4H PRN #180 ml 10/08/19 Budesonide/Formoterol Fumarate [Symbicort 80-4.5 Mcg Inhaler] 1 puff IH DAILY 06/03/20 Clonidine HCl 0.1 mg PO DAILY 06/03/20 Mupirocin [Bactroban] 1 applic TOPICAL TID 06/03/20 levoFLOXacin tablet [Levaquin tablet] 750 mg PO DAILY #5 tab 06/05/20 Following Prescriptions Were Given to Patient: levoFLOXacin tablet [Levaquin tablet] 750 mg PO DAILY #5 tab Transmission Status: Pending to [id number] Primary Care Physician: Armin Chau DO [Primary Care Provider] - Please follow up with your Primary Care Physician in: in 1 week Disposition: Home Minutes spent on discharge:: 35 Patient Condition:: Stable Medical Necessity - Tobacco Use Smoking Status: Never smoker Tobacco Use: Non-smoker Meaningful Use Info Meaningful Use Diagnoses (Choose all that apply): CHF - CHF TRINITY/ARB ordered at discharge?: No Reason TRINITY/ARB not ordered?: Allergy Documented LVEF (%): 70 Inpatient E&M: 26875 Disch Hosp
[2020-06-05 12:30] LABS: Bedside Glucose 163 mg/dL (70-110)
--- NOTE | 2020-06-05 13:34 | CASEMGMT ---
Received tc from [facility] and they are able to accept pt. Pt aware. Notified Spenser ARMENDARIZ in [facility] and also notified [facility] bilingual patient support caseworker.
--- NOTE | 2020-06-08 15:50 | CASEMGMT ---
KALA LUI DC PHONE CALL DC DATE: 06/05/2020 DC DISPOSITION: Home DC DIAGNOSIS: CHF LACE/STRATA: 12/27 F/U APPTS MADE PRIOR TO DC: yes PRESCRIPTIONS ACQUIRED BY PT: yes Intro role of CM to patient via phone. Patient states he has his medications, but does not have aide services and cannot do his own baths. Per CM, no agencies [facility] were able to provide aide services, but patient's care advocate through [facility] is aware. Call to [facility] CM Heide Wright [phone]. Message left to update that patient is having difficulty @ home and needs assist with bathing. Requested she contact patient with suggestions for f/u due to patient not being able to do ADL's at home. - Call back to patient to update that [facility] does not have aides to assist, but message was left with [facility] CM. Patient will follow with her. Also updated pt if he is not able to care for self @ home, to contact PCP to assist if placement is needed. Cammie WOLFE RN AC
--- NOTE | 2020-06-12 11:33 | CCN.REFER ---
Agreeable to CCN. Home visit made 06/11.
== END 2020-06-05 16:40 | disposition home or self-care (01) | DRG 139 ==
LOC: ED 06-03 01:17 → ICU 06-03 02:20 → PCU 06-04 01:33 → ICU 06-04 09:08
PROVIDERS: Nurse Practitioner Family; Admitting Provider Internal Medicine; Emergency Provider Emergency Medicine; PCP Family Medicine; Visit Provider Internal Medicine
DX: J18.9 Pneumonia, unspecified organism (principal); J96.21 Acute and chronic respiratory failure with hypoxia; J96.22 Acute and chronic respiratory failure with hypercapnia; I11.0 Hypertensive heart disease with heart failure; J44.0 Chronic obstructive pulmonary disease with (acute) lower respiratory infection; J44.1 Chronic obstructive pulmonary disease with (acute) exacerbation; I50.33 Acute on chronic diastolic (congestive) heart failure; N17.9 Acute kidney failure, unspecified; J45.40 Moderate persistent asthma, uncomplicated; Z20.822 Contact with and (suspected) exposure to COVID-19; E11.9 Type 2 diabetes mellitus without complications; I89.0 Lymphedema, not elsewhere classified; E66.2 Morbid (severe) obesity with alveolar hypoventilation; Z68.43 Body mass index [BMI] 50.0-59.9, adult; Z91.19 Patient's noncompliance with other medical treatment and regimen; Z99.81 Dependence on supplemental oxygen; Z79.4 Long term (current) use of insulin; Z79.51 Long term (current) use of inhaled steroids; Z79.899 Other long term (current) drug therapy
CPT/HCPCS: 36415; 36600; 71045; 80048; 82803; 82962; 83036; 83735; 83880; 84484; 85025; 85027; 87040; 87426; 87449; 87633; 87635; 87641; 93005; 93306; 94002; 94003; 94640; 94667; 94668; 97162; 97802; 99251; 99285; 99406; Q9957; A4216; C8929; G0463; U0002

== ENCOUNTER 2021-07-20 10:45 | Outpatient (RCR) | payer MEDICARE, MEDICAID, SELFPAY ==
[2021-06-29 10:09] VITALS: BP 182/83; PULSE 97; RESP 20; TEMP 35.6
[2021-06-29 11:06] VITALS: BMI 56.3
--- NOTE | 2021-06-29 11:52 | PCM.WC.HP ---
History of Present Illness Date of Service: 06/29/21 Chief Complaint: bilateral anterior lower leg ulcers History of Wound: This 52-year-old diabetic male patient was consulted to the wound healing center after being referred here by Dr. Mac for bilateral anterior kwan ulcers and lower extremity edema. Patient states he noticed the ulcers starting approximately 1 week ago. He says they have not been getting any worse, but they are not getting better either. Patient currently receiving home health care dressing changes per [facility]. Patient reports that he uses lymphedema pumps daily. Patient reports that he removes his dressings that are applied once a week per [facility] after approximately 2 days after application. Patient notes chronic rashes to bilateral legs and relates this to a medication eruption or due to application of compressive dressings. [facility] Medical History (Updated 06/29/21 @ 11:[address] Meliton Mac, DPM) Accelerated hypertension COPD (chronic obstructive pulmonary disease) Cyst of neck Diabetes Diastolic CHF HTN (hypertension) Hypoxemia Lower extremity edema Lymphedema Lymphedema Non-compliance Ulcer of left lower extremity with fat layer exposed Ulcer of right lower extremity with fat layer exposed Home Medications bumetanide 1 mg PO DAILY 06/01/19 [History Last Taken Unknown] hydrocortisone 1 applic TOPICAL TID 06/01/19 [History Last Taken Unknown] omeprazole magnesium 20 mg PO DAILY 06/01/19 [History Last Taken Unknown] clotrimazole 1 % topical cream 1 applic TOPICAL TID 10/07/19 [History Last Taken Unknown] portable nebulizer #1 ea 12/31/20 [Rx Last Taken Unknown] ipratropium 0.5 mg-albuterol 3 mg (2.5 mg base)/3 mL nebulization soln 3 ml INHALATION Q4H PRN #180 ml 01/06/21 [Rx Last Taken Unknown] Levemir FlexTouch U-100 Insuln 40 u OTHER BID 06/29/21 [History Last Taken Unknown] insulin asp prt-insulin aspart [Novolog Mix 70-30FlexPen U-100] 50 ml SUBCUT 4X/DAY 06/29/21 [History Last Taken Unknown] liraglutide [Victoza 3-Benja] 1.8 mg SUBCUT DAILY 06/29/21 [History Last Taken Unknown] Allergy/AdvReac Type Severity Reaction Status Date / Time amlodipine [From [facility]] Allergy Other Verified 07/14/20 12:44 apraclonidine Allergy Other Verified 07/14/20 12:44 diltiazem Allergy Unknown Verified 07/14/20 12:44 doxycycline Allergy Other Verified 07/14/20 12:44 enalapril Allergy Other Verified 07/14/20 12:44 glimepiride Allergy Other Verified 07/14/20 12:44 glipizide [From Glucotrol] Allergy Other Verified 07/14/20 12:44 hydralazine Allergy Other Verified 07/14/20 12:44 ibuprofen Allergy Other Verified 07/14/20 12:44 Influenza Virus Vaccines Allergy Unknown Verified 07/14/20 12:44 latex Allergy Other Verified 07/14/20 12:44 lisinopril Allergy Other Verified 07/14/20 12:44 metoprolol Allergy Other Verified 07/14/20 12:44 montelukast Allergy Other Verified 07/14/20 12:44 Penicillins Allergy Other Verified 07/14/20 12:44 pravastatin Allergy Other Verified 07/14/20 12:44 prednisone Allergy Other Verified 07/14/20 12:44 propranolol Allergy Unknown Verified 07/14/20 12:44 simvastatin [From Zocor] Allergy Other Verified 07/14/20 12:44 sulfamethoxazole Allergy Other Verified 07/14/20 12:44 [From Bactrim] trimethoprim [From Bactrim] Allergy Other Verified 07/14/20 12:44 Family History Father Diabetes Hyperlipemia Other CHF (congestive heart failure) CVA (cerebral vascular accident) Surgical History Hx [facility] Social History (Updated 07/14/20 @ 13:[address] Jamal Anderson MD) Smoking Status: Never smoker ROS Constitutional Constitutional: Denies change in weight, daytime sleepiness or difficulty sleeping Eyes Eyes: Denies acute decrease in peripheral vision, blindness or blind spots ENT HEENT: Denies bleeding gums, ear discharge or hoarseness Cardiovascular Cardiovascular: Denies abdominal edema, abdominal pain or chest pain with activity Respiratory/Chest Respiratory/Chest: Denies change in mental status, change in phlegm color or difficulty clearing secretions Vital Signs Vital Signs Vital Signs: 06/29/21 10:09 Temperature 96.0 F L Temperature Source Temporal Pulse Rate 97 Respiratory Rate 20 H Blood Pressure 182/83 H Blood Pressure Mean 116 Blood Pressure Source Monitor Blood Pressure Position Sitting Blood Pressure Location Left Arm Oxygen Delivery Method Nasal Cannula Oxygen Flow Rate (L/min) 2 Weight Weight: 144.242 kg Body Mass Index (BMI) 56.3 Physical Exam Narrative Patient is alert oriented to person place and time. Patient ambulates unassisted. Vascular: Dorsalis pedis and posterior tibial pulses palpable 2 out of 4 to bilateral lower extremity compartments. +2 pitting edema noted perimalleoli region bilaterally. Digital hair growth noted bilaterally. Capillary fill time brisk to bilateral lower extremity. Neurologic: Light touch protective sensation diminished bilateral feet. Reestablish mid tibia. Dermatologic: Full-thickness ulceration noted to the superior lateral right leg. Mixed fibrogranular base. No deep probing or undermining. No signs of infection. Pre and post debridement measurements documented in nursing notes. Musculoskeletal: No pain with calf squeeze bilateral lower extremity no pain with palpation of popliteal fossa no negative Homans' sign. Muscular strength full to bilateral lower extremity compartments. No wound forming deformity noted. Debridement Note Debridement Note Post-Debridement Measurements and Additional Note: Post-Debridement Measurements/Treatment - Nurse 1 - General Ulcer Assessment Start: 06/29/21 10:06 Freq: Status: Active Protocol: ANGEL.LOWEXT Activity Type Activity Date Activity User E-Sign Co-Sign Detail Recorded Client Recorded Date Recorded By Document 06/29/21 10:09 [id number] 06/29/21 10:26 Document 06/29/21 11:06 [id number] 06/29/21 11:06 06/29/21 06/29/21 10:09 11:06 - Today's Visit Information Type of service Follow-up Visit (Physician/SALON DESIGNER ) Arrival Mode Ambulatory Transfer Assistance None Accompanied by self Patient Identification Verified (Name & Yes ) Patient Requires Transmission-Based No Precautions Finger Stick Blood Sugar(mg/dl) (if 206 indicated): Blood Sugar Stated by Patient Height and Weight Height 5 ft 3 in Weight 144.242 kg Weight in Pounds 318.0 lbs Body Mass Index (BMI) 56.3 BMI Classification Obese BSA - Sumi 2.36 Vital Signs Temperature (97.8 F-99.1 F) 96.0 F L Temperature Source Temporal Pulse Rate (60-100) 97 Pulse Location Monitor Respiratory Rate (12-18) 20 H Respiratory rate source Observation Oxygen Delivery Method Nasal Cannula O2 L/MIN 2 Blood Pressure (90/60-120/80) 182/83 H Blood Pressure Mean 116 Source Monitor Position Sitting Blood Pressure Location Left Arm History Since Last Visit- (Skip if this is Patient's initial visit) Left Footwear Regular Shoe Right Footwear Regular Shoe Pain Scale: 0-10 Numeric Is Patient Pain Free? Yes Yes Communication Assessment Preferred language Swedish Able to Read Yes Able to Write Yes Communication Tools None Caregiver Communication Skills No Impairment Impairment Right Hearing Abillity Hard of Hearing Left Hearing Abillity Hard of Hearing Visual Assistive Devices Glasses Teaching Assessment Preferences Verbal,Written, Demonstration Barriers to Learning None Readiness To Learn Excellent Willingness to Engage in Self Management High Activies Readiness to Engage in Self Management High Activities Anxiety Level Calm Cooperation Cooperative Perception Coherent Interest in Health Problem Asks Questions Education Importance Acknowledges Need Does Patient Smoke tobacco or other Yes substances Smoking Status Never smoker Is Patient Diabetic Yes Culture/Anabaptism/Hydro Generation Supervisor Cultural/Anabaptism Needs that may affect No Treatment Plan Would you allow our [facility] bookmobile librarian to No meet you for the purpose of spiritual/ emotional support? Hydro Generation Supervisor to contact place of mandaeism No WC - Nurse 1 - General Ulcer Measurement Start: 06/29/21 10:06 Freq: Status: Active Protocol: Activity Type Activity Date Activity User E-Sign Co-Sign Detail Recorded Client Recorded Date Recorded By Document 06/29/21 10:09 MW [id number] 06/29/21 10:26 MW 06/29/21 10:09 Wound Center Nurse 1 #3 Right lateral LE -Combined with other wound No -Current Size (cm) - Length 2.3 -Current Size (cm) - Width 0.9 -Current Size (cm) - Depth 0.2 -Total Square Cm 2.07 -Date of Last Picture (Recall this 06/29/21 field) -Photo Taken Yes -Epithelialization None Present -Tunneling No -Undermining/Tunneling No -Circular Undermining No -Exudate Amt Medium -Exudate Type Serosanguineous -Wound Margin Flat & Intact -Granulation Amt Large (67-100%) -Granulation Quality Red -Slough/Fibrin Yes -Necrosis Amt Small (1-33%) -Necrotic Tissue Type Adherent Slough -Structure Exposed N/A -Texture (Dinah-wound Skin Appearance) Assessed, Localized Edema -Moisture (Dinah-wound Skin Appearance) Assessed,Dry/ Scaly -Color (Dinah-wound Skin Appearance) Assessed,Rubor -Temperature (Dinah-wound Skin No Abnormality Appearance) (Pt Warm) -Tenderness on Palpation (Dinah-wound Yes Skin Appearance) -Ulcer Cleansing Rinsed/ Irrigated with Saline -Foul Odor after Cleansing No -Anesthetic Used 4% Lidocaine Solution Lower Limb Edema Present Yes Point of measurement (cm from the medial 46.2 instep) Right Ankle (cm) 30.3 Left Calf (cm) 48.9 Left Ankle (cm) 31.1 WC - Nurse 2 - General Ulcer CM Notes Start: 06/29/21 10:06 Freq: Status: Active Protocol: Activity Type Activity Date Activity User E-Sign Co-Sign Detail Recorded Client Recorded Date Recorded By Document 06/29/21 10:54 [id number] 06/29/21 11:01 GAGAN 06/29/21 10:54 Wound Center Nurse 2 #3 Right lateral LE -Time 10:57 -Correct Patient Yes -Correct Side, Site, Position Yes -Correct Procedure Yes -Procedure Performed Yes -Type of Procedure Debridement -Clinical Debridement Subcutaneous -Tissue Removed Subcutaneous -Post Debridement (cm) - Length 2.4 -Post Debridement (cm) - Width 0.9 -Post Debridement (cm) - Depth 0.2 -Total Square (Post) (cm) 2.16 -Area of Debridement (cm) - Length 2.4 -Area of Debridement (cm) - Width 0.9 -Total Square (Area) (cm) 2.16 -Tunneling No -Undermining/Tunneling No -Circular Undermining No -Wound/Ulcer Outcome Not Healed -Ulcer Cleansing Rinsed/ Irrigated with Saline -Foul Odor after Cleansing No -Bioengineered Tissue No -Bleeding Controlled with Pressure -Treatment Response Procedure Tolerated Well -Offloading No -Debridement - Subq, 1st 20sq cm Yes Pain Scale: 0-10 Numeric Is Patient Pain Free? Yes ANGEL - Nurse 3 - General Ulcer D/C NN Start: 06/29/21 10:06 Freq: Status: Active Protocol: Activity Type Activity Date Activity User E-Sign Co-Sign Detail Recorded Client Recorded Date Recorded By Document 06/29/21 11:20 MW [id number] 06/29/21 11:21 MW 06/29/21 11:20 Wound Care Nurse 3 #3 Right lateral LE -Ulcer Cleansing Rinsed/ Irrigated with Saline -Foul Odor after Cleansing No -Negative Pressure Wound Therapy N/A -Primary Dressing Applied Fibracol Plus 4x4 -Primary Dressing Covered/Secured with Dry Gauze -Fibracol Plus 4x4 1 Bilateral LE -Lotion applied to leg before No compression wrap -Multi-Layered Wrap Application Multi-Layer Comp - Bilat ($ ) Treatment Response Procedure Tolerated Well Pain Scale: 0-10 Numeric Is Patient Pain Free? Yes Teaching: Wound Center Compression Wraps & Stockings -Person Taught Patient -Teaching Method Discussion, Demonstration -Response to teaching Verbalize understanding Dressing Your Wound -Person Taught Patient -Teaching Method Discussion, Demonstration -Response to teaching Verbalize understanding WC - Visit Discharge Discharge Condition Stable Ambulatory Status Ambulatory Transportation Private Auto Accompanied by self Medication Reconcilliation completed & No provided to patient/care provider Clinical Summary of Care Provided Yes Assessment/Plan Assessment/Plan (1) Lymphedema: CODE(S): I89.0 - Lymphedema, not elsewhere classified (2) Non-pressure chronic ulcer of right calf with fat layer exposed: CODE(S): L97.212 - Non-pressure chronic ulcer of right calf with fat layer exposed PLAN: Patient examined evaluated, all findings cussed with patient in detail. Patient has stable right leg ulceration with no signs of infection there is significant stasis dermatitis noted to bilateral lower extremity with poorly controlled lymphedema. Wound was excisionally debrided down to including level of subcutaneous tissue of all nonviable tissue using 5 mm dermal curette without incident. Topical anesthesia was used. Hemostasis with light compression. Pre and post debridement measurement document nursing notes. I recommend continued home health care dressing changes with increased frequency to 3 times a week as patient cannot tolerated keeping dressings on greater than 2 days. This will consist of application of triamcinolone ointment 0.1% to the periwound areas along with Aquacel dry sterile dressing and 2 layer compression wrap for 3M. We will keep an eye of the patient's wounds and consider any future vascular studies, lab work, nutritional supplementation. Patient demonstrates significantly poorly controlled lymphedema I recommend compression exercise and elevation to better manage this. Patient will follow up in 2 to 3 weeks at which time we will reevaluate him.
[2021-07-20 10:57] VITALS: BP 186/82; PULSE 92; RESP 20; TEMP 35.9; BMI 56.3
--- NOTE | 2021-07-20 11:56 | PCM.WC.PN ---
History of Present Illness Date of Service: 07/20/21 Chief Complaint: bilateral anterior lower leg ulcers History of Wound: This 52-year-old diabetic male patient was consulted to the wound healing center after being referred here by Dr. Mac for bilateral anterior kwan ulcers and lower extremity edema. Patient states he noticed the ulcers starting approximately 1 week ago. He says they have not been getting any worse, but they are not getting better either. Patient currently receiving home health care dressing changes per [facility]. Patient reports that he uses lymphedema pumps daily. Patient reports that he removes his dressings that are applied once a week per [place] [facility] after approximately 2 days after application. Patient notes chronic rashes to bilateral legs and relates this to a medication eruption or due to application of compressive dressings. Objective Data Objective Data Vital Signs: Vital Signs Temp Pulse Resp BP 96.6 F L 92 20 H 186/82 H 07/20/21 10:57 07/20/21 10:57 07/20/21 10:57 07/20/21 10:57 Oxygen Flow Rate (L/min) 2 Oxygen Delivery Method Nasal Cannula Weight: 144.242 kg Body Mass Index (BMI) 56.3 Physical Exam Narrative Patient is alert oriented to person place and time. Patient ambulates unassisted. Vascular: Dorsalis pedis and posterior tibial pulses palpable 2 out of 4 to bilateral lower extremity compartments. +2 pitting edema noted perimalleoli region bilaterally. Digital hair growth noted bilaterally. Capillary fill time brisk to bilateral lower extremity. Neurologic: Light touch protective sensation diminished bilateral feet. Reestablish mid tibia. Dermatologic: Full-thickness ulceration noted to the superior lateral right leg - healed. No signs of infection. Musculoskeletal: No pain with calf squeeze bilateral lower extremity no pain with palpation of popliteal fossa no negative Homans' sign. Muscular strength full to bilateral lower extremity compartments. No wound forming deformity noted. Debridement Note Debridement Note Post-Debridement Measurements and Additional Note: Post-Debridement Measurements/Treatment ANGEL - Nurse 1 - General Ulcer Assessment Start: 06/29/21 10:06 Freq: Status: Active Protocol: ANGEL.LOWEXT Activity Type Activity Date Activity User E-Sign Co-Sign Detail Recorded Client Recorded Date Recorded By Document 06/29/21 10:09 [id number] 06/29/21 10:26 MW Document 06/29/21 11:06 [id number] 06/29/21 11:06 Document 07/20/21 10:57 MW [id number] 07/20/21 11:08 MW 06/29/21 06/29/21 07/20/21 10:09 11:06 10:57 WC - Today's Visit Information Type of service Follow-up Visit Follow-up Visit (Physician/REGIONAL COMMERCIAL SALES MANAGER (Physician/REGIONAL COMMERCIAL SALES MANAGER ) ) Arrival Mode Ambulatory Ambulatory Transfer Assistance None None Accompanied by self self Patient Identification Verified (Name & Yes Yes ) Patient Requires Transmission-Based No No Precautions Safety Precautions NA Finger Stick Blood Sugar(mg/dl) (if 206 197 indicated): Blood Sugar Stated by Stated by Patient Patient Height and Weight Height 5 ft 3 in Weight 144.242 kg Weight in Pounds 318.0 lbs Body Mass Index (BMI) 56.3 56.3 BMI Classification Obese Obese BSA - Sumi 2.36 Vital Signs Temperature (97.8 F-99.1 F) 96.0 F L 96.6 F L Temperature Source Temporal Temporal Pulse Rate (60-100) 97 92 Pulse Location Monitor Monitor Respiratory Rate (12-18) 20 H 20 H Respiratory rate source Observation Observation Oxygen Delivery Method Nasal Cannula Nasal Cannula O2 L/MIN (L/min) 2 2 Blood Pressure (90/60-120/80) 182/83 H 186/82 H Blood Pressure Mean (mm Hg) 116 116 Source Monitor Monitor Position Sitting Sitting Blood Pressure Location Left Arm Left Arm Have you changed medications since your No last visit? Any new allergies or adverse reactions No Had a fall/change in ADL's that may No increase risk of falls Signs or symptoms of abuse and/or No neglect since last visit Have you been in the hospital since your No last visit? Has dressing in place as prescribed No Has compression in place as prescribed No Has offloadiing in place as prescribed N/A Experienced any changes in pain level or No management History Since Last Visit- (Skip if this is Patient's initial visit) Left Footwear Regular Shoe Regular Shoe Right Footwear Regular Shoe Regular Shoe Pain Scale: 0-10 Numeric Is Patient Pain Free? Yes Yes Yes Communication Assessment Preferred language Amharic Able to Read Yes Able to Write Yes Communication Tools None Caregiver Communication Skills No Impairment Impairment Right Hearing Abillity Hard of Hearing Left Hearing Abillity Hard of Hearing Visual Assistive Devices Glasses Teaching Assessment Preferences Verbal,Written, Demonstration Barriers to Learning None Readiness To Learn Excellent Willingness to Engage in Self Management High Activies Readiness to Engage in Self Management High Activities Anxiety Level Calm Cooperation Cooperative Perception Coherent Interest in Health Problem Asks Questions Education Importance Acknowledges Need Does Patient Smoke tobacco or other Yes substances Smoking Status Never smoker Is Patient Diabetic Yes Culture/Yarsanism/[place] Cultural/Yarsanism Needs that may affect No Treatment Plan Would you allow our hospital housekeeper manager to No meet you for the purpose of spiritual/ emotional support? Ribbon [place] to contact place of mosque No WC - Nurse 1 - General Ulcer Measurement Start: 06/29/21 10:06 Freq: Status: Active Protocol: Activity Type Activity Date Activity User E-Sign Co-Sign Detail Recorded Client Recorded Date Recorded By Document 06/29/21 10:09 MW [id number] 06/29/21 10:26 MW Document 07/20/21 10:57 MW [id number] 07/20/21 11:08 MW 06/29/21 07/20/21 10:09 10:57 Wound Center Nurse 1 #3 Right lateral LE -Combined with other wound No No -Current Size (cm) - Length 2.3 0.3 -Current Size (cm) - Width 0.9 0.3 -Current Size (cm) - Depth 0.2 0.3 -Total Square Cm 2.07 0.09 -Date of Last Picture (Recall this 06/29/21 07/20/21 field) -Photo Taken Yes Yes -Epithelialization None Present Small 1-33% -Tunneling No No -Undermining/Tunneling No No -Circular Undermining No No -Exudate Amt Medium None Present -Exudate Type Serosanguineous -Wound Margin Flat & Intact Flat & Intact -Granulation Amt Large (67-100%) Large (67-100%) -Granulation Quality Red Red -Slough/Fibrin Yes Yes -Necrosis Amt Small (1-33%) Small (1-33%) -Necrotic Tissue Type Adherent Slough -Structure Exposed N/A N/A -Texture (Dinah-wound Skin Appearance) Assessed, Assessed, Localized Edema Localized Edema -Moisture (Dinah-wound Skin Appearance) Assessed,Dry/ No Abnormality, Scaly Assessed -Color (Dinah-wound Skin Appearance) Assessed,Rubor Assessed,Rubor -Temperature (Dinah-wound Skin No Abnormality No Abnormality Appearance) (Pt Warm) (Pt Warm) -Tenderness on Palpation (Dinah-wound Yes No Skin Appearance) -Ulcer Cleansing Rinsed/ Rinsed/ Irrigated with Irrigated with Saline Saline -Foul Odor after Cleansing No No -Anesthetic Used 4% Lidocaine 5% Lidocaine Solution Gel Lower Limb Edema Present Yes Yes Right Calf (cm) 47.5 Point of measurement (cm from the medial 46.2 instep) Right Ankle (cm) 30.3 32.2 Left Calf (cm) 48.9 Left Ankle (cm) 31.1 - Nurse 2 - General Ulcer CM Notes Start: 06/29/21 10:06 Freq: Status: Active Protocol: Activity Type Activity Date Activity User E-Sign Co-Sign Detail Recorded Client Recorded Date Recorded By Document 06/29/21 10:54 [id number] 06/29/21 11:01 Document 07/20/21 11:33 [id number] 07/20/21 11:35 06/29/21 07/20/21 10:54 11:33 Wound Center Nurse 2 #3 Right lateral LE -Time 10:57 -Correct Patient Yes No -Correct Side, Site, Position Yes No -Correct Procedure Yes No -Procedure Performed Yes No -Type of Procedure Debridement -Clinical Debridement Subcutaneous -Tissue Removed Subcutaneous -Post Debridement (cm) - Length 2.4 0 -Post Debridement (cm) - Width 0.9 0 -Post Debridement (cm) - Depth 0.2 0 -Total Square (Post) (cm) 2.16 0 -Area of Debridement (cm) - Length 2.4 0 -Area of Debridement (cm) - Width 0.9 0 -Total Square (Area) (cm) 2.16 0 -Tunneling No -Undermining/Tunneling No -Circular Undermining No -Wound/Ulcer Outcome Not Healed Healed- Epithelialized -Ulcer Cleansing Rinsed/ Irrigated with Saline -Foul Odor after Cleansing No -Bioengineered Tissue No -Bleeding Controlled with Pressure -Treatment Response Procedure Tolerated Well -Offloading No -Debridement - Subq, 1st 20sq cm Yes Pain Scale: 0-10 Numeric Is Patient Pain Free? Yes Yes - Nurse 3 - General Ulcer D/C NN Start: 06/29/21 10:06 Freq: Status: Active Protocol: Activity Type Activity Date Activity User E-Sign Co-Sign Detail Recorded Client Recorded Date Recorded By Document 06/29/21 11:20 MW [id number] 06/29/21 11:21 MW Document 07/20/21 11:48 AK [id number] 07/20/21 11:49 AK 06/29/21 07/20/21 11:20 11:48 Wound Care Nurse 3 #3 Right lateral LE -Ulcer Cleansing Rinsed/ Irrigated with Saline -Foul Odor after Cleansing No -Negative Pressure Wound Therapy N/A -Primary Dressing Applied Fibracol Plus 4x4 -Primary Dressing Covered/Secured with Dry Gauze -Fibracol Plus 4x4 1 Bilateral LE -Lotion applied to leg before No compression wrap -Multi-Layered Wrap Application Multi-Layer Comp - Bilat ($ ) -Compression Wrap Wallace Wrap Treatment Response Procedure Tolerated Well Pain Scale: 0-10 Numeric Is Patient Pain Free? Yes Yes Teaching: Wound Center Compression Wraps & Stockings -Person Taught Patient -Teaching Method Discussion, Demonstration -Response to teaching Verbalize understanding Dressing Your Wound -Person Taught Patient -Teaching Method Discussion, Demonstration -Response to teaching Verbalize understanding WC - Visit Discharge Discharge Condition Stable Stable Ambulatory Status Ambulatory Transportation Private Auto Private Auto Accompanied by self Medication Reconcilliation completed & No Yes provided to patient/care provider Clinical Summary of Care Provided Yes Yes Assessment/Plan Assessment/Plan (1) Lymphedema: CODE(S): I89.0 - Lymphedema, not elsewhere classified (2) Non-pressure chronic ulcer of right calf with fat layer exposed: CODE(S): L97.212 - Non-pressure chronic ulcer of right calf with fat layer exposed PLAN: Patient examined evaluated, all findings cussed with patient in detail. Patient has healed right leg ulceration. Toenail debridement performed today of bilateral feet x10 nails length thickness with sterile nail nippers. Patient fits a q. 9 modifier as he has chronic leg swelling atrophic changes to the skin with discoloration secondary to chronic leg swelling with stasis dermatitis thickened nails and numbness and paresthesias into the legs bilaterally. I recommend continued home health care dressing changes with increased frequency to 3 times a week as patient cannot tolerated keeping dressings on greater than 2 days. This will consist of application of triamcinolone ointment 0.1% to the periwound areas along with Aquacel dry sterile dressing and 2 layer compression wrap for 3M. We will keep an eye of the patient's wounds and consider any future vascular studies, lab work, nutritional supplementation. Patient demonstrates significantly poorly controlled lymphedema I recommend compression exercise and elevation to better manage this. Patient will follow up in 3 weeks to ensure resolution of his leg wounds will consider referral back to lymphedema clinic.
== END 2021-07-24 23:59 | disposition home or self-care (01) ==
LOC: WC 10:45
PROVIDERS: PCP Family Medicine; Visit Provider Podiatrist
DX: E11.622 Type 2 diabetes mellitus with other skin ulcer (principal); L97.212 Non-pressure chronic ulcer of right calf with fat layer exposed; I11.0 Hypertensive heart disease with heart failure; I50.32 Chronic diastolic (congestive) heart failure; J44.9 Chronic obstructive pulmonary disease, unspecified; I89.0 Lymphedema, not elsewhere classified; Z79.4 Long term (current) use of insulin; Z79.899 Other long term (current) drug therapy
CPT/HCPCS: 11042; 29581; 99213; G0463

== ENCOUNTER 2021-08-10 10:48 | Outpatient (RCR) | payer MEDICARE, MEDICAID, SELFPAY ==
[2021-07-25 00:08] VITALS: BP 186/82; PULSE 92; RESP 20; TEMP 35.9; BMI 56.3
[2021-08-10 10:55] VITALS: BP 191/91; PULSE 67; TEMP 36.8; BMI 56.3
--- NOTE | 2021-08-10 12:18 | PCM.WC.PN ---
History of Present Illness Date of Service: 08/10/21 Chief Complaint: bilateral anterior lower leg ulcers History of Wound: This 52-year-old diabetic male patient was consulted to the wound healing center after being referred here by Dr. Mac for bilateral anterior kwan ulcers and lower extremity edema. Patient states he noticed the ulcers starting approximately 1 week ago. He says they have not been getting any worse, but they are not getting better either. Patient currently receiving home health care dressing changes per [facility]. Patient reports that he uses lymphedema pumps daily. Patient reports that he removes his dressings that are applied once a week per [place] care after approximately 2 days after application. Patient notes chronic rashes to bilateral legs and relates this to a medication eruption or due to application of compressive dressings. Objective Data Objective Data Vital Signs: Vital Signs Temp Pulse Resp BP 98.2 F 67 20 H 191/91 H 08/10/21 10:55 08/10/21 10:55 07/25/21 00:08 08/10/21 10:55 Oxygen Flow Rate (L/min) 2 Weight: 144.242 kg Body Mass Index (BMI) 56.3 Physical Exam Narrative Patient is alert oriented to person place and time. Patient ambulates unassisted. Vascular: Dorsalis pedis and posterior tibial pulses palpable 2 out of 4 to bilateral lower extremity compartments. +2 pitting edema noted perimalleoli region bilaterally. Digital hair growth noted bilaterally. Capillary fill time brisk to bilateral lower extremity. Neurologic: Light touch protective sensation diminished bilateral feet. Reestablish mid tibia. Dermatologic: Full-thickness ulceration noted to the superior lateral right leg - healed. No signs of infection. Musculoskeletal: No pain with calf squeeze bilateral lower extremity no pain with palpation of popliteal fossa no negative Homans' sign. Muscular strength full to bilateral lower extremity compartments. No wound forming deformity noted. Debridement Note Debridement Note Post-Debridement Measurements and Additional Note: Post-Debridement Measurements/Treatment - Nurse 1 - General Ulcer Assessment Start: 08/10/21 10:55 Freq: Status: Active Protocol: ANTHONYEXVonda Activity Type Activity Date Activity User E-Sign Co-Sign Detail Recorded Client Recorded Date Recorded By Document 08/10/21 10:55 LUISITO [id number] 08/10/21 11:03 LUISITO 08/10/21 10:55 WC - Today's Visit Information Type of service Follow-up Visit (Physician/CHUTE MAN ) Arrival Mode Ambulatory Patient Identification Verified (Name & Yes ) Height and Weight Body Mass Index (BMI) 56.3 BMI Classification Obese Vital Signs Temperature (97.8 F-99.1 F) 98.2 F Temperature Source Temporal Pulse Rate (60-100) 67 Pulse Location Monitor Blood Pressure (90/60-120/80) 191/91 H Blood Pressure Mean (mm Hg) 124 Source Monitor Position Sitting Blood Pressure Location Left Arm History Since Last Visit- (Skip if this is Patient's initial visit) Have you changed medications since your No last visit? Any new allergies or adverse reactions No Had a fall/change in ADL's that may No increase risk of falls Signs or symptoms of abuse and/or No neglect since last visit Have you been in the hospital since your No last visit? Has dressing in place as prescribed No Has compression in place as prescribed N/A Has offloadiing in place as prescribed N/A Experienced any changes in pain level or No management Left Footwear Regular Shoe Right Footwear Regular Shoe Pain Scale: 0-10 Numeric Is Patient Pain Free? Yes - Nurse 1 - General Ulcer Measurement Start: 08/10/21 10:55 Freq: Status: Active Protocol: Activity Type Activity Date Activity User E-Sign Co-Sign Detail Recorded Client Recorded Date Recorded By Document 08/10/21 10:55 LUISITO [id number] 08/10/21 11:03 LUISITO 08/10/21 10:55 Wound Center Nurse 1 #5 Left Lateral Lower Extremity -Current Size (cm) - Length 12.5 -Current Size (cm) - Width 5.3 -Current Size (cm) - Depth 0.1 -Total Square Cm 66.25 -Exudate Amt Small -Exudate Type Serosanguineous -Wound Margin Distinct, Outline Attached -Granulation Amt Small (1-33%) -Granulation Quality [place] -Necrosis Amt None Present (0 %) -Texture (Dinah-wound Skin Appearance) Assessed, Scarring -Moisture (Dinah-wound Skin Appearance) No Abnormality, Assessed -Color (Dinah-wound Skin Appearance) No Abnormality, Assessed -Temperature (Dinah-wound Skin No Abnormality Appearance) (Pt Warm) -Tenderness on Palpation (Dinah-wound No Skin Appearance) -Ulcer Cleansing Rinsed/ Irrigated with Saline -Foul Odor after Cleansing No #4 Right Lateral Lower Extremity -Current Size (cm) - Length 13.5 -Current Size (cm) - Width 13.5 -Current Size (cm) - Depth 0.2 -Total Square Cm 182.25 -Exudate Amt Small -Exudate Type Serosanguineous -Wound Margin Distinct, Outline Attached -Granulation Amt Small (1-33%) -Granulation Quality [place] -Necrosis Amt None Present (0 %) -Texture (Dinah-wound Skin Appearance) Assessed, Scarring -Moisture (Dinah-wound Skin Appearance) Assessed, Maceration -Color (Dinah-wound Skin Appearance) No Abnormality, Assessed -Temperature (Dinah-wound Skin No Abnormality Appearance) (Pt Warm) -Tenderness on Palpation (Dinah-wound No Skin Appearance) -Ulcer Cleansing Rinsed/ Irrigated with Saline -Foul Odor after Cleansing No Right Calf (cm) 50.2 Right Ankle (cm) 32.4 Left Calf (cm) 48 Left Ankle (cm) 31 WC - Nurse 2 - General Ulcer CM Notes Start: 08/10/21 10:55 Freq: Status: Active Protocol: Activity Type Activity Date Activity User E-Sign Co-Sign Detail Recorded Client Recorded Date Recorded By Document 08/10/21 11:31 [id number] 08/10/21 11:33 08/10/21 11:31 Wound Center Nurse 2 #5 Left Lateral Lower Extremity -Correct Patient No -Correct Side, Site, Position No -Correct Procedure No -Procedure Performed No -Post Debridement (cm) - Length 0 -Post Debridement (cm) - Width 0 -Post Debridement (cm) - Depth 0 -Total Square (Post) (cm) 0 -Area of Debridement (cm) - Length 0 -Area of Debridement (cm) - Width 0 -Total Square (Area) (cm) 0 -Wound/Ulcer Outcome Healed- Epithelialized #4 Right Lateral Lower Extremity -Correct Patient No -Correct Side, Site, Position No -Correct Procedure No -Procedure Performed No -Wound/Ulcer Outcome Healed- Epithelialized Pain Scale: 0-10 Numeric Is Patient Pain Free? Yes WC - Nurse 3 - General Ulcer D/C NN Start: 08/10/21 10:55 Freq: Status: Active Protocol: Activity Type Activity Date Activity User E-Sign Co-Sign Detail Recorded Client Recorded Date Recorded By Document 08/10/21 11:50 MW [id number] 08/10/21 11:55 MW 08/10/21 11:50 Wound Care Nurse 3 Right -Lotion applied to leg before No compression wrap -Compression Wrap Wallace Wrap -Other stockinette under wallace Left -Lotion applied to leg before No compression wrap -Compression Wrap Wallace Wrap -Other stockinette under wallace Treatment Response Procedure Tolerated Well Pain Scale: 0-10 Numeric Is Patient Pain Free? Yes Teaching: Wound Center Compression Wraps & Stockings -Person Taught Patient -Teaching Method Discussion, Demonstration -Response to teaching Verbalize understanding WC - Visit Discharge Discharge Condition Stable Ambulatory Status Ambulatory Transportation Private Auto Accompanied by self Medication Reconcilliation completed & No provided to patient/care provider Clinical Summary of Care Provided Yes Assessment/Plan Assessment/Plan (1) Lymphedema: CODE(S): I89.0 - Lymphedema, not elsewhere classified PLAN: Patient examined evaluated, all findings cussed with patient in detail. Patient has healed right leg ulceration. Patient will continue compression elevation and exercise for edema management. Patient instructed to use lymphedema pumps at home. Patient will follow up in our office for nail care. (2) Non-pressure chronic ulcer of right calf with fat layer exposed: CODE(S): L97.212 - Non-pressure chronic ulcer of right calf with fat layer exposed PLAN: Resolved
== END 2021-08-10 14:11 | disposition home or self-care (01) ==
LOC: WC 10:48
PROVIDERS: PCP Family Medicine; Visit Provider Podiatrist
DX: L97.212 Non-pressure chronic ulcer of right calf with fat layer exposed (principal); I89.0 Lymphedema, not elsewhere classified; R60.0 Localized edema
CPT/HCPCS: 99213; G0463

== ENCOUNTER 2023-12-14 10:55 | Observation (INO) | payer MEDICARE, MEDICAID, SELFPAY ==
[2023-12-14] VITALS (17 sets, daily range): BP systolic 142–181; BP diastolic 49–83; PULSE 70–90; RESP 16–29; TEMP 36.2–36.7; O2SAT 63–96; BMI 57.8
--- NOTE | 2023-12-14 11:03 | ED.VIS.DYS ---
HPI History of Present Illness Chief Complaint: Shortness of Breath [facility] Medical History (Updated 06/29/21 @ 11:[address] Meliton Mac, DPGregory) Cyst of neck Diastolic CHF HTN (hypertension) Accelerated hypertension Hypoxemia COPD (chronic obstructive pulmonary disease) Non-compliance Lower extremity edema Lymphedema Ulcer of left lower extremity with fat layer exposed Ulcer of right lower extremity with fat layer exposed Diabetes Lymphedema Home Medications ?Medication ?Instructions ?Recorded ?Last Taken ?Type bumetanide 1 mg tablet 1 mg PO DAILY 06/01/19 12/13/23 History hydrocortisone 1 % topical ointment 1 applic topical TID excoriated 06/01/19 12/13/23 History areas omeprazole magnesium 20 mg 20 mg PO DAILY 06/01/19 12/13/23 History tablet,delayed release portable nebulizer #1 ea 12/31/20 Unknown Rx ipratropium 0.5 mg-albuterol 3 mg 3 ml inhalation Q4H PRN shortness 01/06/21 12/13/23 Rx (2.5 mg base)/3 mL nebulization of breath or wheezing #180 mL soln insulin aspar prot-insulin aspart 40 unit subcut 4X/DAY Check with 06/29/21 12/13/23 History 100 unit/mL (70-30) subcutaneous primary doctor pen (Novolog Mix 70-30FlexPen U-100) liraglutide 0.6 mg/0.1 mL (18 mg/3 1.8 mg subcut DAILY 06/29/21 12/13/23 History mL) subcutaneous pen injector ([employer] 3-Benja) carvedilol 25 mg tablet 25 mg PO BID 12/14/23 12/13/23 History cetirizine 10 mg tablet (24Hour 10 mg PO DAILY PRN allergy symptoms 12/14/23 12/14/23 History Allergy) gentamicin 0.1 % topical ointment 1 applic topical DAILY PRN skin 12/14/23 12/13/23 History irritation hydrocortisone 2.5 % topical cream 1 applic topical DAILY PRN skin 12/14/23 12/13/23 History irritation insulin detemir U-100 100 unit/mL 45 unit subcut QHS 12/14/23 12/13/23 History (3 mL) subcutaneous pen (Levemir FlexPen) insulin detemir U-100 100 unit/mL 50 unit subcut DAILY 12/14/23 12/13/23 History (3 mL) subcutaneous pen (Levemir FlexPen) spironolactone 25 mg tablet 25 mg PO DAILY 12/14/23 12/13/23 History Allergy/AdvReac Type Severity Reaction Status Date / Time amlodipine (From Norvasc) Allergy Other Verified 12/14/23 11:04 apraclonidine Allergy Other Verified 12/14/23 11:04 diltiazem Allergy Unknown Verified 12/14/23 11:04 doxycycline Allergy Other Verified 12/14/23 11:04 enalapril Allergy Other Verified 12/14/23 11:04 glimepiride Allergy Other Verified 12/14/23 11:04 glipizide (From Glucotrol) Allergy Other Verified 12/14/23 11:04 hydralazine Allergy Other Verified 12/14/23 11:04 ibuprofen Allergy Other Verified 12/14/23 11:04 Influenza Virus Vaccines Allergy Unknown Verified 12/14/23 11:04 latex Allergy Other Verified 12/14/23 11:04 lisinopril Allergy Other Verified 12/14/23 11:04 metoprolol Allergy Other Verified 12/14/23 11:04 montelukast Allergy Other Verified 12/14/23 11:04 Penicillins Allergy Other Verified 12/14/23 11:04 pravastatin Allergy Other Verified 12/14/23 11:04 prednisone Allergy Other Verified 12/14/23 11:04 propranolol Allergy Unknown Verified 12/14/23 11:04 simvastatin (From Zocor) Allergy Other Verified 12/14/23 11:04 sulfamethoxazole (From Allergy Other Verified 12/14/23 11:04 Bactrim) trimethoprim (From Bactrim) Allergy Other Verified 12/14/23 11:04 Family History Father Diabetes Hyperlipemia Other CHF (congestive heart failure) CVA (cerebral vascular accident) Surgical History Hx of [facility] Social History (Updated 07/14/20 @ 13:[address] Jamal Anderson MD) Smoking Status: Never smoker EXAM Physical Exam Const Vital Signs: 12/14/23 10:56 12/14/23 11:01 12/14/23 11:02 Temperature 97.8 F 97.8 F Temperature Source Oral Oral Pulse Rate 71 70 Respiratory Rate 19 H 26 H Respiratory Effort Short of Breath Respiratory Depth Deep Respiratory Pattern Tachypnea Blood Pressure 170/83 H 181/73 H Blood Pressure Mean 112 109 Pulse Ox 86 93 Oxygen Delivery Method Nasal Cannula Nasal Cannula Nasal Cannula Oxygen Flow Rate (L/min) 3.5 4.5 4.5 12/14/23 11:17 12/14/23 11:57 12/14/23 12:01 Temperature 98.1 F Temperature Source Oral Pulse Rate 74 76 Respiratory Rate 16 Respiratory Effort Respiratory Depth Respiratory Pattern Blood Pressure 159/49 H 145/65 H Blood Pressure Mean 91 Pulse Ox 90 94 Oxygen Delivery Method Nasal Cannula Nasal Cannula Oxygen Flow Rate (L/min) 4.5 4 12/14/23 13:00 12/14/23 13:00 12/14/23 14:37 Temperature 97.2 F L 97.2 F L 97.9 F Temperature Source Oral Oral Pulse Rate 71 71 78 Respiratory Rate 19 H 19 H 29 H Respiratory Effort Respiratory Depth Respiratory Pattern Blood Pressure 176/63 H 176/63 H 168/66 H Blood Pressure Mean 100 100 100 Pulse Ox 96 96 94 Oxygen Delivery Method Nasal Cannula Nasal Cannula Oxygen Flow Rate (L/min) 4 4 12/14/23 15:00 12/14/23 15:09 Temperature Temperature Source Pulse Rate 80 86 Respiratory Rate 26 H 16 Respiratory Effort Respiratory Depth Respiratory Pattern Normal Blood Pressure 175/74 H Blood Pressure Mean 107 Pulse Ox 92 Oxygen Delivery Method Nasal Cannula Oxygen Flow Rate (L/min) 6 MDM MDM MDM Narrative Medical decision making narrative: HISTORY OF PRESENT ILLNESS: 58-year-old male history of CHF, lymphedema, obesity, COPD, hypertension presents with shortness of breath. Per triage note he notes increased shortness of breath. Increased his oxygen on his concentrator. Patient further states he has been more short of breath the last 3 days. Denies cough. Denies bleeding diathesis. Denies chest pain or palpitations. Denies vomiting or diarrhea. Denies gaining weight with bilateral leg swelling. Notes he has not taken his blood pressure medicine this morning. The patient denies recent surgery in the last 4 weeks or immobilization in the last 3 days, denies previous diagnosis of DVT or PE, hemoptysis, unilateral leg swelling or malignancy with treatment the last 6 months or palliative. No estrogen use noted. REVIEW OF SYSTEMS: Pertinent positives: Shortness of breath, chronic leg swelling and redness Pertinent negatives: Weight gain, fever, palpitations, chest pain or syncope PHYSICAL EXAM: Nursing triage notes reviewed, Vital signs reviewed Constitutional: please see mdm HENT: MMM Eyes: Pupils equal round and reactive to light, Extraocular muscles intact Neck: No stridor, no JVD, full neck ROM Lungs: Clear to auscultation, No wheezing or rales. No increased work of breathing, no conversational dyspnea, no accessory muscle use, no nasal flaring. No respiratory distress noted Heart: Regular rate and rhythm, No murmurs, No rubs and No gallops, 2+ distal pulses (radial, femoral, posterior tibial) in all extremities Abdomen: Soft, there is no tenderness, rigidity, rebound or guarding, no obvious peritoneal signs, no palpable pulsatile abdominal masses, no auscultated abdominal bruit : No CVAT Extremities: 2+ pitting edema bilateral lower extremities Neuro: No focal neurological deficits, cranial nerves II through XII intact, 5/5 strength in all extremities. Intact sensation to light touch in all extremities, 2+ reflexes bilateral patella tendons. Normal gait. No ataxia. Skin: Erythema noted to bilateral lower extremities that patient reports this is chronic, MEDICAL DECISION MAKING: Chief Complaint: Shortness of breath External records reviewed: [Meds, allergies, prior imaging studies reviewed. Echocardiogram reviewed 2020 shows ejection fraction of 70% with no regional wall motion abnormality Factors affecting care: As per HPI Social determinants of health: none History obtained from others: none Consults: Hospitalist Dr. Farmer [facility] Narrative: Patient was initially tachypneic with a rate of 26, hypertensive with a blood pressure 181/73 saturating at 86 % on 3-1/2 L by nasal cannula. I considered the following differential diagnosis: COPD exacerbation, CHF exacerbation, ACS, arrhythmia, anemia, COVID, PE, DVT I obtained a broad lab and imaging workup to further elucidate etiology the patient complaint. ALL IMAGES (IF OBTAINED) HAVE BEEN PERSONALLY REVIEWED AND INTERPRETED BY MYSELF. EKG with normal sinus rhythm, right axis deviation, no STEMI. Similar to prior Bilateral duplex ultrasounds are negative for acute DVT CBC with no leukocytosis to suggest systemic inflammation, no thrombocytopenia, anemia noted which is slightly worse than baseline BMP without significant electrolyte abnormalities, no evidence of metabolic acidosis or endorgan hypoperfusion or acute kidney injury High-sensitivity troponin is negative, no evidence of myocardial ischemia BNP within normal limits The patient was ambulated and he became significant hypoxic to 85%. Given hypoxia and signs of CHF will admit the patient for diuresis and echocardiogram. Discussed with hospitalist Dr. Farmer who agreed with admission. The patient and/or family, caregivers express understanding. The patient and/or family, caregivers agrees with the plan. Shared decision making: I will have a discussion with the patient and or visitors regarding risk/benefits of further testing or admission. They will be made aware of of the risk/benefits inherent in this decision they will be given the opportunity to voice understanding. Total critical care time today provided was at least 0 minutes. This excludes separately billable procedures. Critical care time (if documented) is secondary to the patient having high probability of clinically significant/life threatening deterioration in the patient's condition which required my urgent intervention. Impression: 1. Shortness of breath 2. Elevated blood pressure 3. CHF exacerbation 4. Hypoxia Dispo: Admit to PCU ops This note was generated with [employer] dictation software. It may contain incorrect words, spelling, and punctuation that were not noted in review of the chart prior to signing. Lab Data Labs: Laboratory Results - last 24 hr 12/14/23 11:45 WBC 9.3 RBC 4.26 L Hgb 11.8 L Hct 39.2 L MCV 92.0 MCH 27.7 MCHC 30.1 L RDW Std Deviation 46.0 H RDW Coeff of Jung 13.7 Plt Count 191 MPV 9.7 Immature Gran % (Auto) 0.200 Neut % (Auto) 76.8 H Lymph % (Auto) 11.7 L [place] % (Auto) 8.5 Eos % (Auto) 2.5 Baso % (Auto) 0.3 Absolute Neuts (auto) 7.1 Absolute Lymphs (auto) 1.08 Nucleated RBC % 0 Sodium 135 L Potassium 5.1 Chloride 96 L Carbon Dioxide 38.0 H Anion Gap 1 L BUN 31 H Creatinine 1.47 H Est GFR (MDRD) Af Amer 63 Est GFR (MDRD) Non-Af 52 L BUN/Creatinine Ratio 21.1 H Glucose 272 H Calcium 9.4 Troponin I High Sens 10 B-Natriuretic Peptide 82.4 Radiography Diagnostic Testing: Clinical Impression(s) from Imaging Studies Chest X-Ray 12/14/23 11:20 IMPRESSION: Vascular congestion and mild CHF. Electronically Signed: Elia Prado MD at 12:06 EDT , Discharge Plan Triage Chief Complaint: Shortness of Breath ED Provider: Kang Foster Dx/Rx/DC Orders Prescriptions: No Action bumetanide 1 MG tablet 1 mg PO DAILY Patient Comments: pt alternates between 1 tab and 2 tabs every other day. 12/14/23- 2 TABS omeprazole magnesium 20 MG tablet,delayed release (DR/EC) 20 mg PO DAILY hydrocortisone 1 APPLIC ointment 1 applic TOPICAL TID insulin asp prt-insulin aspart [Novolog Mix 70-30FlexPen U-100] 100 unit/mL (70-30) Insulin Pen 40 unit SUBCUT 4X/DAY Patient Comments: PT STATES HE TAKES A SLIDING SCALE. PT STATES IF IT IS 200+, HE TAKES 1 UNIT PER BS NUMBER, PLUS THE 40 UNITS. liraglutide [[employer] 3-Benja] 0.6 mg/0.1 mL (18 mg/3 mL) Pen Injector 1.8 mg SUBCUT DAILY gentamicin 0.1 % ointment 1 applic topical DAILY PRN (Reason: skin irritation) Levemir FlexPen 100 unit/mL (3 mL) insulin pen 50 unit subcut DAILY Patient Comments: PT TAKES 50 UNITS AT BREAKFAST AND 45 UNITS AT BED TIME Levemir FlexPen 100 unit/mL (3 mL) insulin pen 45 unit subcut QHS Patient Comments: PT TAKES 50 UNITS AT BREAKFAST AND 45 UNITS AT BED TIME carvedilol 25 mg tablet 25 mg PO BID hydrocortisone 2.5 % cream 1 applic topical DAILY PRN (Reason: skin irritation) spironolactone 25 mg tablet 25 mg PO DAILY cetirizine [24Hour Allergy] 10 mg tablet 10 mg PO DAILY PRN (Reason: allergy symptoms) (DME) portable nebulizer See Rx Instructions .Route .MEDSUPPLY Qty: 1 0RF Rx Instructions: As directed ipratropium-albuterol 0.5 mg-3 mg(2.5 mg base)/3 mL solution for nebulization 3 ml INHALATION Q4H PRN (Reason: shortness of breath or wheezing) Qty: 180 3RF Primary Care Provider: Armin Chau Referrals: Armin Chau DO [Primary Care Provider] - Print Language: German
--- NOTE | 2023-12-14 11:06 | EKG12_ITS ---
Test Reason : SOB Blood Pressure : / mmHG Vent. Rate : 071 BPM Atrial Rate : 071 BPM P-R Int : 176 ms QRS Dur : 086 ms QT Int : 372 ms P-R-T Axes : 059 106 059 degrees QTc Int : 404 ms Normal sinus rhythm Rightward axis Low voltage QRS Borderline ECG When compared with ECG of 02-JUN-2020 23:43, No significant change was found Confirmed by Eduardo Jackson [id number]), editor continuity and script MELISSA HAY ([id number]) on 12/18/2023 1:19:44 PM Referred By: Confirmed By:Eduardo Jackson
--- NOTE | 2023-12-14 11:20 | VDLE_ITS ---
Reason For Study: Bilateral leg swelling RIGHT LEFT GSV is normal. GSV is normal. CFV is compressible, spontaneous, phasic, CFV is compressible, spontaneous, phasic, competent and demonstrates normal competent, and demonstrates normal augmentation. augmentation. FV is compressible, spontaneous, phasic, FV is compressible, spontaneous, phasic, competent and demonstrates normal competent and demonstrates normal augmentation. augmentation. POP V is compressible, spontaneous, phasic, POP V is compressible, spontaneous, phasic, competent and demonstrates normal competent and demonstrates normal augmentation. augmentation. T/P Trunk is compressible. T/P Trunk is compressible. PTV is compressible. PTV is compressible. RT PerV is compressible. LT PerV is compressible. Procedure This is a venous duplex using B-mode, color flow and spectral Doppler. Exam performed portable in ED. Technically difficult study due to patient body habitus and sitting in upright position. Bilateral calf veins only visualized at proximal calf due to bandages and wounds. A preliminary report was called and/or faxed to [facility]. VL/Venous Duplex US - Abisai Extrem Interpretation Summary Deep veins of the bilateral lower extremities are patent and compressible segme ntally. There is no evidence of bilateral lower extremity deep vein thrombosis. The bilateral great saphenous veins appear patent and compressible segmentally. Ordering Physician: Kang Foster Referring Physician: Armin Chau Performed By: Ibeth Collins RVT
--- NOTE | 2023-12-14 11:20 | RAD_ITS ---
STUDY: X-RAY CHEST REASON FOR EXAM: Male, 58 years old. Dyspnea TECHNIQUE: Single AP portable view of the chest. COMPARISON: Comparison is made with prior study June 02, 2020. FINDINGS: EKG electrodes are seen. There is evidence of vascular congestion and mild degree of CHF. There is no demonstrated pleural abnormality. There is mild cardiac enlargement. Normal mediastinum and elma. Normal visualized pulmonary arteries. Normal visualized aortic arch and descending thoracic aorta. There are diffuse degenerative changes of the visualized thoracic spine. Normal visualized ribs, clavicles, and shoulders. There is no demonstrated abnormality of the visualized soft tissue structures of the upper abdomen. RAD/Chest 1 View (Portable) IMPRESSION: Vascular congestion and mild CHF. Electronically Signed: Elia Prado MD at 12:06 EDT ,
[2023-12-14 11:52] LABS: Absolute Lymphocyte Count 1.08 X10^3/uL (0.83-4.51); Absolute Neutrophil Count 7.1 X10^3/uL (2.0-7.7); Basophil# 0.03 X10^3/uL; Basophil% 0.3 % (0-1); Eosinophil# 0.23 X10^3/uL; Eosinophils% 2.5 % (0-5); Hematocrit 39.2 % (40-54); Hemoglobin 11.8 g/dL (13.0-16.5); Lymphocyte # 1.08 X10^3/ul (0.83-4.51); Lymphocyte % 11.7 % (19-41); Mean Corp Hgb Conc 30.1 g/dL (32-36); Mean Corpuscular Hgb 27.7 pg (27.0-32.0); Mean Platelet Vol. 9.7 fl (6.2-12.0); Monocyte# 0.79 X10^3/uL; Monocyte% 8.5 % (0-10); NRBC Flagged by Analyzer 0 % (0-5); Neutrophil # 7.11 X10^3/uL (2.7-7.7); Neutrophil % 76.8 % (47-70); Platelet Count 191 K/mm3 (150-450); RBC Distribution Width CV 13.7 % (11.6-14.6); Red Blood Count 4.26 M/mm3 (4.6-6.2); White Blood Count 9.3 K/mm3 (4.4-11.0)
[2023-12-14] MEDS: Nitroglycerin (INPATIENT USE) 0.4 MG TAB.SUBL SL (11:57)
[2023-12-14 12:05] LABS: BNP,B-Type NATRIURETIC PEPTIDE 82.4 pg/mL (0-100)
[2023-12-14 12:08] LABS: Anion Gap 1 (5-15); BUN 31 mg/dL (7-18); BUN/Creat Ratio 21.1 RATIO (10-20); Calcium,Total 9.4 mg/dL (8.5-10.1); Chloride 96 mmol/L (98-107); Creatinine, Serum 1.47 mg/dL (0.70-1.30); EST Glomerular Filtration Rate 52 mL/min (>60); Est Glom Filt Rate - Afr Amer 63 mL/min (>60); Glucose 272 mg/dL (74-106); Potassium 5.1 mmol/L (3.5-5.1); Sodium Level 135 mmol/L (136-145); Troponin-I HS 10 pg/mL (3.0-78.0)
[2023-12-14] MEDS: Bumetanide 1 MG/4 ML Vial IV (14:24)
--- NOTE | 2023-12-14 14:51 | NURSING ---
CHARLEE BERG CHF EXAC
[2023-12-14] MEDS: Ipratropium/Albuterol Sulfate 3 ML AMPUL.NEB INHALATION ×2 (15:09→19:17)
[2023-12-14 17:34] LABS: Bedside Glucose 328 mg/dL (74-106)
--- NOTE | 2023-12-14 18:01 | PCM.HP.STD ---
[facility] - General General Date of Admission: 12/14/23 Date of Service: 12/14/23 Chief Complaint: Shortness of breath HPI Narrative BAILEY CARDENAS, is a 58 M who presented to the emergency department at [facility] on 12/14/2023 with a chief complaint of shortness of breath. The patient is oxygen dependent due to a history of asthma. He is on chronic oxygen at 2 L nasal cannula but lately states his respiratory status has slowly worsening and he has titrated his oxygen up to the point where he is at 6 L. Patient states his weight was down to 300 pounds but he is now up again to 325-330. He has chronic lower extremity edema and erythema that is no worse than his baseline and this appears to be from chronic venous stasis. It does not sound like he weighs himself on a daily basis and it does not appear that he watches his diet considerably. He does report that he is never able to lie flat and sleeps in a recliner fairly upright. He does complain of shortness of breath at rest and with exertion that is worse with exertion. He denies any fever, chills, cough, sputum production or any signs of respiratory infection. He states he has some wheezing but this is chronic for him and not new. He does have an echocardiogram in our system but this was from 2020. At that time he had an EF of 70% with trivial mitral valve insufficiency, trivial tricuspid valve insufficiency, no evidence of diastolic dysfunction however his right ventricular systolic pressure and pulmonary pressures were difficult to assess due to the fact that the study was technically difficult. I highly suspect he has elevated pulmonary pressures and at the very least does not RV dysfunction. He was noted to be stable at rest on his 2 L initially in the emergency department and the plan was started to send him home with an extra dose of Bumex however he desatted with ambulation in the 80s and it took him a significant amount of time to recover. Vital signs on presentation showed temperature 97.8, heart rate 71, respiratory rate was 19, blood pressure was 170/83 and pulse ox was 86% on 3.5 L nasal cannula with improvement to 93% at 4.5 L nasal cannula. During ambulation his oxygen saturation dropped into the 80s and he required up titration of his oxygen to 6 L. CBC showed mild anemia with a hemoglobin of 11.8 but was otherwise unremarkable. His chemistry panel showed a sodium of 135, chloride of 96, serum bicarb of 38 (appears to be his baseline), BUN of 31 and a serum creatinine of 1.47 (baseline serum creatinine recently is unknown. His blood glucose level was 272. Troponin was 10 and BNP was 82.4 however I suspect this is markedly significant due to his morbid obesity. EKG shows no acute findings consistent with ischemia however he does have a right axis deviation and P pulmonale. Chest x-ray demonstrates vascular congestion and cardiomegaly. He was given IV Bumex in the emergency department. [facility] Medical History Cyst of neck Diastolic CHF HTN (hypertension) Accelerated hypertension Hypoxemia COPD (chronic obstructive pulmonary disease) Non-compliance Lower extremity edema Lymphedema Ulcer of left lower extremity with fat layer exposed Ulcer of right lower extremity with fat layer exposed Diabetes Lymphedema Home Medications ?Medication ?Instructions ?Recorded ?Last Taken ?Type bumetanide 1 mg tablet 1 mg PO DAILY 06/01/19 12/13/23 History hydrocortisone 1 % topical ointment 1 applic topical TID excoriated 06/01/19 12/13/23 History areas omeprazole magnesium 20 mg 20 mg PO DAILY 06/01/19 12/13/23 History tablet,delayed release portable nebulizer #1 ea 12/31/20 Unknown Rx ipratropium 0.5 mg-albuterol 3 mg 3 ml inhalation Q4H PRN shortness 01/06/21 12/13/23 Rx (2.5 mg base)/3 mL nebulization of breath or wheezing #180 mL soln liraglutide 0.6 mg/0.1 mL (18 mg/3 1.8 mg subcut DAILY 06/29/21 12/13/23 History mL) subcutaneous pen injector (Victoza 3-Benja) carvedilol 25 mg tablet 25 mg PO BID 12/14/23 12/13/23 History cetirizine 10 mg tablet (24Hour 10 mg PO DAILY PRN allergy symptoms 12/14/23 12/14/23 History Allergy) gentamicin 0.1 % topical ointment 1 applic topical DAILY PRN skin 12/14/23 12/13/23 History irritation hydrocortisone 2.5 % topical cream 1 applic topical DAILY PRN skin 12/14/23 12/13/23 History irritation insulin aspart U-100 100 unit/mL 40 unit subcut 4X/DAY 12/14/23 Unknown History (3 mL) subcutaneous pen (Novolog FlexPen U-100 Insulin aspart) insulin detemir U-100 100 unit/mL 45 unit subcut QHS 12/14/23 12/13/23 History (3 mL) subcutaneous pen (Levemir FlexPen) insulin detemir U-100 100 unit/mL 50 unit subcut DAILY 12/14/23 12/13/23 History (3 mL) subcutaneous pen (Levemir FlexPen) spironolactone 25 mg tablet 25 mg PO DAILY 12/14/23 12/13/23 History Allergy/AdvReac Type Severity Reaction Status Date / Time amlodipine (From [facility]) Allergy Other Verified 12/14/23 11:04 apraclonidine Allergy Other Verified 12/14/23 11:04 diltiazem Allergy Unknown Verified 12/14/23 11:04 doxycycline Allergy Other Verified 12/14/23 11:04 enalapril Allergy Other Verified 12/14/23 11:04 glimepiride Allergy Other Verified 12/14/23 11:04 glipizide (From Glucotrol) Allergy Other Verified 12/14/23 11:04 hydralazine Allergy Other Verified 12/14/23 11:04 ibuprofen Allergy Other Verified 12/14/23 11:04 Influenza Virus Vaccines Allergy Unknown Verified 12/14/23 11:04 latex Allergy Other Verified 12/14/23 11:04 lisinopril Allergy Other Verified 12/14/23 11:04 metoprolol Allergy Other Verified 12/14/23 11:04 montelukast Allergy Other Verified 12/14/23 11:04 Penicillins Allergy Other Verified 12/14/23 11:04 pravastatin Allergy Other Verified 12/14/23 11:04 prednisone Allergy Other Verified 12/14/23 11:04 propranolol Allergy Unknown Verified 12/14/23 11:04 simvastatin (From Zocor) Allergy Other Verified 12/14/23 11:04 sulfamethoxazole (From Allergy Other Verified 12/14/23 11:04 Bactrim) trimethoprim (From Bactrim) Allergy Other Verified 12/14/23 11:04 Family History (Updated 12/14/23 @ 18:[address] Rosalia Farmer DO) Father Diabetes Hyperlipemia Heart disease Other CHF (congestive heart failure) CVA (cerebral vascular accident) Surgical [facility] Social History (Updated 12/14/23 @ 18:[address] Rosalia Farmer DO) housing: house current occupational status: unemployed and disabled Smoking Status: Never smoker alcohol intake: never substance use type: does not use ROS Constitutional Constitutional: Reports change in weight; Denies anorexia, chills, fatigue, fever(s), malaise, night sweats, weakness or other Eyes Eyes: Denies blurry vision, change in eye color, change in vision, discharge from eye(s), double vision, erythema, eye pain, loss of vision or other ENT HEENT: Denies abnormal hearing, dysphagia, ear pain, epistaxis, headache(s), hearing loss, nasal congestion, nasal discharge, post nasal drip, sinus pressure, sore throat or other Cardiovascular Cardiovascular: Reports dyspnea on exertion, edema and other Details: Chronically sleeps upright in a chair due to shortness of breath ; Denies chest pain, claudication, lightheadedness, orthopnea, palpitations, paroxysmal nocturnal dyspnea, rapid heart rate or syncope Respiratory/Chest Respiratory/Chest: Reports dyspnea, shortness of breath at rest, shortness of breath with exertion and wheezing; Denies cough, excessive phlegm production, hemoptysis, productive cough or other Gastrointestinal Gastrointestinal: Denies abdominal pain, coffee ground emesis, constipation, diarrhea, dyspepsia, hematemesis, hematochezia, loose stools, melena, nausea, vomiting or other Genitourinary Genitourinary: Denies burning urination, difficulty urinating, dysuria, hematuria, nocturia, urinary frequency, urinary hesitancy, urinary incontinence, urinary urgency or other Musculoskeletal Musculoskeletal: Denies arthralgias, back pain, joint pain, joint stiffness, joint swelling, myalgias, neck pain or other Neurologic Neurologic: Denies abnormal gait, abnormal speech, confusion, disequilibrium, dizziness, focal weakness, headache(s), numbness, paresthesias, seizure-like activity, seizures, syncope, tingling, tremor(s) or other Psychiatric Psychiatric: Denies anxiety, depression, homicidal ideation, suicidal ideation or other Endocrine Endocrinology: Denies change in body appearance, cold intolerance, excessive sweating, heat intolerance, polydipsia, polyuria or other Hematologic/Lymphatic Hematologic/Lymphatic: Denies anemia, easy bleeding, easy bruising, lymphadenopathy or other Allergic/Immunologic Allergic/Immunologic: Denies rhinitis, hives, eczemia, asthma or other Vital Signs Vital Signs Vital Signs: 12/14/23 10:56 12/14/23 11:01 12/14/23 11:02 Temperature 97.8 F 97.8 F Temperature Source Oral Oral Pulse Rate 71 70 Respiratory Rate 19 H 26 H Respiratory Effort Short of Breath Respiratory Depth Deep Respiratory Pattern Tachypnea Blood Pressure 170/83 H 181/73 H Blood Pressure Mean 112 109 Pulse Ox 86 93 Oxygen Delivery Method Nasal Cannula Nasal Cannula Nasal Cannula Oxygen Flow Rate (L/min) 3.5 4.5 4.5 12/14/23 11:17 12/14/23 11:57 12/14/23 12:01 Temperature 98.1 F Temperature Source Oral Pulse Rate 74 76 Respiratory Rate 16 Respiratory Effort Respiratory Depth Respiratory Pattern Blood Pressure 159/49 H 145/65 H Blood Pressure Mean 91 Pulse Ox 90 94 Oxygen Delivery Method Nasal Cannula Nasal Cannula Oxygen Flow Rate (L/min) 4.5 4 12/14/23 13:00 12/14/23 13:00 12/14/23 14:37 Temperature 97.2 F L 97.2 F L 97.9 F Temperature Source Oral Oral Pulse Rate 71 71 78 Respiratory Rate 19 H 19 H 29 H Respiratory Effort Respiratory Depth Respiratory Pattern Blood Pressure 176/63 H 176/63 H 168/66 H Blood Pressure Mean 100 100 100 Pulse Ox 96 96 94 Oxygen Delivery Method Nasal Cannula Nasal Cannula Oxygen Flow Rate (L/min) 4 4 12/14/23 15:00 12/14/23 15:09 12/14/23 17:00 Temperature Temperature Source Pulse Rate 80 86 74 Respiratory Rate 26 H 16 25 H Respiratory Effort Respiratory Depth Respiratory Pattern Normal Blood Pressure 175/74 H 154/81 H Blood Pressure Mean 107 105 Pulse Ox 92 93 Oxygen Delivery Method Nasal Cannula Nasal Cannula Oxygen Flow Rate (L/min) 6 6 Physical Exam Const alert, oriented x3, no apparent distress and well nourished; Negative for average body habitus or healthy appearing Constitutional Narrative: Super morbidly obese, white male, sitting up in bed, appears comfortable, does not appear toxic General Appearance: cooperative HEENT normocephalic, head/scalp atraumatic, hearing grossly normal bilaterally and moist oral mucous membranes HEENT Narrative: Mallampati 4, no thrush Neck no lymphadenopathy and supple Neck Narrative: Neck is short and thick, trachea midline, no noted thyroid enlargement however exam is difficult due to superfluous soft tissue Resp no retractions, no use of accessory muscles and No clear to auscultation bilaterally Resp Narrative: Mild tachypnea and dyspnea with conversation but no signs of respiratory distress, crackles at the bases, distant Auscultation: crackles; Negative for rhonchi or wheezes Cardio regular rate, regular rhythm, S1 normal heart sound, S2 normal heart sound, no murmurs, no rub, no gallops and no clicks GI normal to inspection, nondistended, normoactive bowel sounds, soft to palpation and non-tender GI Narrative: Large protuberant abdomen Extremity Extremity Narrative: No clubbing or cyanosis, marked lower extremity edema, Wallace bandages are in place and legs were just rewrapped, ED physician said they are erythematous and patient states that the skin changes are chronic and stable Neuro oriented x3, moves all extremities and no focal motor deficits Speech: speech normal Psych Psych Narrative: Affect is slightly strange, eye contact is good, patient interacts appropriately Results Lab / Micro Data 12/14/23 11:45 12/14/23 11:45 Labs: Laboratory Results - last 24 hr 12/14/23 11:45: WBC 9.3, RBC 4.26 L, Hgb 11.8 L, Hct 39.2 L, MCV 92.0, MCH 27.7, MCHC 30.1 L, RDW Std Deviation 46.0 H, RDW Coeff of Jung 13.7, Plt Count 191, MPV 9.7, Immature Gran % (Auto) 0.200, Neut % (Auto) 76.8 H, Lymph % (Auto) 11.7 L, [place] % (Auto) 8.5, Eos % (Auto) 2.5, Baso % (Auto) 0.3, Absolute Neuts (auto) 7.1, Absolute Lymphs (auto) 1.08, Nucleated RBC % 0, Sodium 135 L, Potassium 5.1, Chloride 96 L, Carbon Dioxide 38.0 H, Anion Gap 1 L, BUN 31 H, Creatinine 1.47 H, Est GFR (MDRD) Af Amer 63, Est GFR (MDRD) Non-Af 52 L, BUN/Creatinine Ratio 21.1 H, Glucose 272 H, Calcium 9.4, Troponin I High Sens 10, B-Natriuretic Peptide 82.4 12/14/23 17:16: POC Glucose 328 H Micro: Microbiology 12/14/23 11:20 Mucosa - Nose SARS-CoV-2, Influenza & RSV (PCR) - Final Imaging Radiology Impression Chest X-Ray 12/14/23 11:20 IMPRESSION: Vascular congestion and mild CHF. Electronically Signed: Elia Prado MD at 12:06 EDT , Assessment & Plan Assessment/Plan (1) Hypoxia: (2) Shortness of breath: (3) Acute on chronic heart failure with normal ejection fraction: (4) Hyperglycemia: (5) Elevated blood pressure reading: PLAN: Plan Shortness of breath with acute hypoxia on chronic hypoxic respiratory failure secondary to acute on chronic HFpEF -Last echocardiogram here was from 2020 and showed normal diastolic dysfunction and normal EF however pulmonary pressures were not able to be ascertained -Patient with chronic lower extremity edema and BNP is normal however with morbid obesity this is likely elevated as BNP is less reliable in morbidly obese individuals -No signs of infection -Bumex 2 mg twice daily -Sodium restriction -Fluid restriction to 1500 cc daily -Dietitian for discussion about cardiac and diabetic diet--> highly suspect noncompliance -Check echocardiogram -Daily weights -Continue lower extremity Wallace bandages -Highly suspect this is going to be right ventricular/+/- diastolic dysfunction as the etiology for his heart failure which will be harder to treat -Consider SLGPT2 inhibitor if able to get it covered Essential hypertension with elevated blood pressure readings on presentation -Continue home Aldactone -Continue home carvedilol -Hold home Bumex and utilize IV Bumex for now -Start nitrate 60 mg daily Elevated serum creatinine -Baseline is unclear -Current serum creatinine 1.47 -Suspect this may improve with diuresis -Repeat lab in a.m. Hyponatremia -Highly suspect related to volume overload -Repeat lab in a.m. -Mild DM-2 with hyperglycemia -Check hemoglobin A1c but highly suspect he is uncontrolled -Hold home oral agents -Continue home basal insulin at 50 units in the a.m. and 45 units at at bedtime -Continue prandial insulin 40 units 3 times daily -SSI as ordered -Accu-Cheks as ordered -Cardiac/carb controlled diet with 1800 kcal restriction Asthma/COPD with overlap syndrome -Patient is not on any inhalers -Schedule DuoNebs -As needed albuterol GERD -Continue home PPI Chronic lower extremity lymphedema -Patient reports that stable and better than it has been previously -Diuretics as above -Continue outpatient follow-up as needed MARYLU -Patient has been noncompliant with MARYLU therapy -Reports it did not work for him but per documentation previously from pulmonary medicine it is reported that he was just noncompliant -Highly suspect this may be contributing to his heart failure Morbid obesity -BMI greater than 50 -Recommend weight loss -Complicates treatment, prognosis, outcomes DVT prophylaxis -Lovenox twice daily CODE STATUS -Full code as verified on admission Charges/Coding Visit Charges Inpatient E&M: 33033 Init Hosp L2
[2023-12-14] MEDS: Insulin Lispro 100 UNIT/ML INSULN.PEN 10 UNIT SC (18:06)
--- NOTE | 2023-12-14 18:41 | ECHOCS_ITS ---
Reason For Study: CHF Procedure This was a 2D Doppler, Color Flow transthoracic echocardiogram. Technically difficult study. Patient refused to lay in bed, scanned seated in chair. Exam performed portable in patient room. Left Ventricle Normal LV size. The estimated ejection fraction is 60 %. No evidence for diastolic dysfunction. No regional wall motion abnormalities noted. Right Ventricle Normal RV size. Normal systolic function. Atria The left and right atria are normal. No doppler evidence for ASD. Mitral Valve There is mild to moderate mitral annular calcification. There is no mitral valve stenosis. No mitral valve insufficiency. Tricuspid Valve There is no tricuspid stenosis. Unable to estimate RV systolic pressure due to inadequate jet, pulmonary artery pressure probably normal. Aortic Valve Trisinus/trileaflet aortic valve. Aortic sclerosis, no stenosis. There is no aortic stenosis. No aortic valve insufficiency. Pulmonic Valve There is no pulmonic valvular stenosis. No pulmonic valve insufficiency. Great Vessels Normal aortic root. Pericardium/Pleural No pericardial effusion. Medication Diluted definity 3.5ml given slow IV push to enhance endocardial definition. MMode/2D Measurements & Calculations LVIDd: 4.7 cm IVSd: 1.7 cm Ao root diam: 3.4 cm LVIDs: 3.0 cm LVPWd: 1.7 cm FS: 35.1 % LVAd ap4: 36.2 cm2 SV(MOD-sp4): 90.7 ml SV(sp4-el): 92.3 ml LVLd ap4: 8.7 cm EDV(MOD-sp4): 126.6 ml EDV(sp4-el): 126.9 ml LVAs ap4: 16.4 cm2 LVLs ap4: 6.6 cm ESV(MOD-sp4): 35.9 ml ESV(sp4-el): 34.6 ml EF(MOD-sp4): 71.7 % EF(sp4-el): 72.7 % LA dimension(2D): 3.5 cm Time Measurements MV dec time: 0.18 sec Doppler Measurements & Calculations MV E max thien: 107.1 cm/sec Lat Peak E' Thien: 7.2 cm/sec Med Peak E' Thien: 8.2 cm/sec MV A max thien: 64.5 cm/sec E/E' lat: 14.9 E/E' med: 13.0 MV E/A: 1.7 MV V2 max: 115.2 cm/sec MV dec slope: 593.2 cm/sec2 Ao V2 max: 129.5 cm/sec MV max P.3 mmHg Ao max P.7 mmHg MV V2 mean: 65.4 cm/sec Ao V2 mean: 93.6 cm/sec MV mean P.0 mmHg Ao mean P.8 mmHg MV V2 VTI: 36.3 cm Ao V2 VTI: 27.2 cm AV (velocity ratio): 0.78 LV V1 max: 110.9 cm/sec LV V1 max P.9 mmHg LV V1 mean P.3 mmHg LV V1 mean: 67.8 cm/sec LV V1 VTI: 21.1 cm ECHO/Echo Complete W/ Contrast Interpretation Summary The estimated ejection fraction is 60 %. No evidence for diastolic dysfunction. Ordering Physician: Rosalia Farmer Referring Physician: MAYDA CHRISTOPHER Performed By: Madiha Jimenez RCS
[2023-12-14] MEDS: Bumetanide 1 MG/4 ML Vial 2 MG IV (20:05)
[2023-12-14] MEDS: Enoxaparin 40 MG/0.4 ML Syringe SC (21:15)
[2023-12-14] MEDS: Carvedilol 25 MG Tablet PO (21:16)
[2023-12-14] MEDS: Insulin Glargine-YFGN 100 UNIT/ML Pen 45 UNIT SC (21:30)
--- NOTE | 2023-12-14 22:17 | PCM.HOSP.N ---
Hospitalist Note Patient with ongoing hyperglycemia. Will given his q HS long acting and will change to high dose ISS. Will given x 1 dose short acting instead of ISS 15 u and reassess BS in 1 hour.
[2023-12-14] MEDS: Insulin Lispro 100 UNIT/ML INSULN.PEN 15 UNIT SC (23:22)
[2023-12-14] MEDS: Albuterol 2.5 MG/3 ML VIAL.NEB. INHALATION (23:29)
[2023-12-14 23:57] LABS: Bedside Glucose > 500 mg/dL (74-106)
[2023-12-15] VITALS (7 sets, daily range): BP systolic 146–153; BP diastolic 53–98; PULSE 70–88; RESP 18–20; TEMP 36.5–36.6; O2SAT 90–96; BMI 57.8
[2023-12-15 04:50] LABS: Absolute Lymphocyte Count 0.72 X10^3/uL (0.83-4.51); Absolute Neutrophil Count 6.9 X10^3/uL (2.0-7.7); Basophil# 0.03 X10^3/uL; Basophil% 0.4 % (0-1); Eosinophil# 0.11 X10^3/uL; Eosinophils% 1.3 % (0-5); Hematocrit 38.6 % (40-54); Hemoglobin 11.6 g/dL (13.0-16.5); Lymphocyte # 0.72 X10^3/ul (0.83-4.51); Lymphocyte % 8.4 % (19-41); Mean Corp Hgb Conc 30.1 g/dL (32-36); Mean Corpuscular Hgb 27.8 pg (27.0-32.0); Mean Corpuscular Volume 92.6 fL (80-94); Mean Platelet Vol. 10.1 fl (6.2-12.0); Monocyte# 0.72 X10^3/uL; Monocyte% 8.4 % (0-10); NRBC Flagged by Analyzer 0 % (0-5); Neutrophil # 6.92 X10^3/uL (2.7-7.7); Platelet Count 201 K/mm3 (150-450); RBC Distribution Width CV 13.7 % (11.6-14.6); RBC Distribution Width SD 46.6 fl (35.1-43.9); Red Blood Count 4.17 M/mm3 (4.6-6.2); White Blood Count 8.5 K/mm3 (4.4-11.0)
[2023-12-15 05:10] LABS: Troponin-I HS 9 pg/mL (3.0-78.0)
[2023-12-15 06:44] LABS: ALB/GLOB Ratio 0.5 RATIO (0.9-2.4); AST(SGOT) 8 U/L (15-37); Alanine Aminotransfer ALT/SGPT 15 U/L (16-61); Albumin, Serum 2.7 g/dL (3.2-5.0); Alkaline Phosphatase 115 U/L (45-117); Anion Gap 3 (5-15); BUN 32 mg/dL (7-18); BUN/Creat Ratio 20.9 RATIO (10-20); Calcium,Total 9.1 mg/dL (8.5-10.1); Chloride 94 mmol/L (98-107); Creatinine, Serum 1.53 mg/dL (0.70-1.30); EST Glomerular Filtration Rate 50 mL/min (>60); Est Glom Filt Rate - Afr Amer 60 mL/min (>60); Estimated Creatinine Clearance 68.63 ml/min; Globulin 5.5 g/dL (2.2-4.2); Glucose 478 mg/dL (74-106); Magnesium 2.3 mg/dL (1.6-2.6); Phosphorus 2.7 mg/dL (2.5-4.9); Protein, Total 8.2 g/dL (6.4-8.2); Sodium Level 134 mmol/L (136-145)
[2023-12-15] MEDS: Ipratropium/Albuterol Sulfate 3 ML AMPUL.NEB INHALATION ×3 (07:02→19:10)
[2023-12-15 07:39] LABS: Troponin-I HS 11 pg/mL (3.0-78.0)
[2023-12-15 08:32] LABS: Hemoglobin A1c 8.2 % (3.8-5.6)
[2023-12-15] MEDS: Insulin Lispro 100 UNIT/ML INSULN.PEN 15 UNIT SC (08:47)
[2023-12-15] MEDS: Insulin Lispro 100 UNIT/ML INSULN.PEN 40 UNIT SC ×3 (08:51→17:41)
[2023-12-15] MEDS: Carvedilol 25 MG Tablet PO ×2 (08:56→21:19)
[2023-12-15] MEDS: Bumetanide 1 MG/4 ML Vial 2 MG IV ×2 (08:57→17:40)
[2023-12-15] MEDS: Spironolactone 25 MG Tablet PO (08:58)
[2023-12-15] MEDS: Insulin Glargine-YFGN 100 UNIT/ML Pen 50 UNIT SC (08:58)
[2023-12-15] MEDS: Isosorbide Mononitrate 60 MG Tablet PO (08:58)
[2023-12-15] MEDS: Pantoprazole Sodium 20 MG Tablet PO (08:58)
[2023-12-15] MEDS: Enoxaparin 40 MG/0.4 ML Syringe SC (08:59)
[2023-12-15] MEDS: 0.9% Saline Lock 10 ML Syringe IV ×2 (09:35→17:42)
[2023-12-15] MEDS: Albuterol 2.5 MG/3 ML VIAL.NEB. INHALATION (10:59)
[2023-12-15 11:05] LABS: Troponin-I HS 12 pg/mL (3.0-78.0)
[2023-12-15 11:39] LABS: Bedside Glucose 331 mg/dL (74-106)
[2023-12-15] MEDS: Insulin Lispro 100 UNIT/ML INSULN.PEN SC ×3 (13:02→21:18)
[2023-12-15] MEDS: Hydrocortisone 2.5% Ointment 20 gm tube 1 APPLIC TOPICAL ×2 (13:05→21:18)
--- NOTE | 2023-12-15 13:32 | CASEMGMT ---
Met with patient to complete SCRUGGS form. SCRUGGS form explained to patient who voiced understanding and signed form. Original form placed in pt?s chart and copy provided to patient. Aida Matute, Discharge Planning Asst
--- NOTE | 2023-12-15 15:21 | PN_ITS ---
Subjective Subjective Patient seen and examined. He had no active complaints. His breathing had improved. He denied any wheezing, chest pain, palpitations, dizziness, nausea or vomiting. Review of systems otherwise negative. He is on 3L of oxygen by nasal canula. Objective Data Objective Data Vital Signs: Vital Signs Temp Pulse Resp BP Pulse Ox O2 Del Method O2 Flow Rate 97.9 F 87 20 H 146/98 H 96 Nasal Cannula 3 12/15/23 03:42 12/15/23 12:53 12/15/23 12:53 12/15/23 03:42 12/15/23 07:02 12/15/23 07:02 12/15/23 10:07 Oxygen Flow Rate (L/min) 3 Oxygen Delivery Method Nasal Cannula Weight: 326 lb 4.546 oz Body Mass Index (BMI) 57.8 Lab / Micro Data 12/15/23 04:27 12/15/23 04:27 Labs: Laboratory Results - last 24 hr 12/14/23 17:16: POC Glucose 328 H 12/14/23 21:14: POC Glucose > 500 H* 12/15/23 04:27: WBC 8.5, RBC 4.17 L, Hgb 11.6 L, Hct 38.6 L, MCV 92.6, MCH 27.8, MCHC 30.1 L, RDW Std Deviation 46.6 H, RDW Coeff of Jung 13.7, Plt Count 201, MPV 10.1, Immature Gran % (Auto) 0.500, Neut % (Auto) 81.0 H, Lymph % (Auto) 8.4 L, [place] % (Auto) 8.4, Eos % (Auto) 1.3, Baso % (Auto) 0.4, Absolute Neuts (auto) 6.9, Absolute Lymphs (auto) 0.72 L, Nucleated RBC % 0, Sodium 134 L, Potassium 5.0, Chloride 94 L, Carbon Dioxide 37.0 H, Anion Gap 3 L, BUN 32 H, Creatinine 1.53 H, Estim Creat Clear Calc 68.63, Est GFR (MDRD) Af Amer 60, Est GFR (MDRD) Non-Af 50 L, BUN/Creatinine Ratio 20.9 H, Glucose 478 H*, Hemoglobin A1c 8.2 H, Calcium 9.1, Phosphorus 2.7, Magnesium 2.3, Total Bilirubin 0.60, AST 8 L, ALT 15 L, Alkaline Phosphatase 115, Troponin I High Sens 9, Total Protein 8.2, A lbumin 2.7 L, Globulin 5.5 H, Albumin/Globulin Ratio 0.5 L, TSH 1.910 12/15/23 06:58: Troponin I High Sens 11 12/15/23 10:23: Troponin I High Sens 12 12/15/23 11:19: POC Glucose 331 H Micro: Microbiology 12/14/23 11:20 Mucosa - Nose SARS-CoV-2, Influenza & RSV (PCR) - Final Radiography Diagnostic Testing: Radiology Impression Venous Doppler Study 12/14/23 11:20 Interpretation Summary Deep veins of the bilateral lower extremities are patent and compressible segmentally. There is no evidence of bilateral lower extremity deep vein thrombosis. The bilateral great saphenous veins appear patent and compressible segmentally. Ordering Physician: Kang Foster Referring Physician: Armin Chau Performed By: Ibeth Collins RVT Physical Exam Const alert, oriented x3 and no apparent distress Constitutional Narrative: obese General Appearance: cooperative and well developed HEENT normocephalic, head/scalp atraumatic and moist oral mucous membranes Eyes PERRL and EOMs intact bilaterally Neck supple Lymph Lymphatic: no lymphadenopathy noted and no lymphedema noted Resp Resp Narrative: diminished breath sounds Cardio regular rate, regular rhythm, S1 normal heart sound, S2 normal heart sound and no murmurs Palpation: normal PMI GI normal to inspection, nondistended, normoactive bowel sounds, soft to palpation, non-tender and non-distended Extremity normal capillary refill, no clubbing, cyanosis or edema and no calf tenderness General Extremity: no tenderness to palpation of joints or extremities Skin General Skin Exam: no breakdown Neuro CN's II-XII intact bilaterally, no focal motor deficits and no sensory deficits noted Motor Exam: strength 5/5 throughout and general weakness Psych thought process normal and cooperative Appearance: appropriate Assessment & Plan Assessment/Plan (1) Acute on chronic heart failure with normal ejection fraction: PLAN: Plan #Hypoxia due to acute on chronic HFpEF * being diuresed with IV bumex * says his breathing has improved * on 3L of oxygen. * Titrate oxygen to maintain sats>90% * breathing treatment with bronchodilators * 2D echo: * #Hyperglycemia in a patient with diabetes * glucose was 478 this morning * on ISS. Accuchecks ACHS * on lantus 50 units daily and * ISS. Accuchecks ACHS * * #EITAN * Creatinine is 1.53 today. Was 1.47 on admission. Baseline is around 0.9. * Patient is on Bumex which he sees always close this is creatinine up titrate upwards. * Will keep a close eye on the creatinine and DC Bumex if creatinine continues to trend upwards. #Metabolic acidosis: Bicarb is 37. He does have chronically elevated bicarb since 2019. This may be due to underlying hypercarbia from sleep apnea. #Benign essential hypertension: On carvedilol and Aldactone. Also on Bumex. #Hyponatremia: Improving. Will monitor. #COPD with asthma: Breathing treatments bronchodilators. Titrate oxygen to maintain saturation above 90% #GERD: On PPI #MARYLU: Noncompliant with CPAP or BiPAP. To follow-up with pulmonology on outpatient basis. #Super morbid obesity: BMI is more than 50. Complicates acute care, expected recovery and prognosis. #DVT prophylaxis: Lovenox twice daily due to BMI Charges/Coding Visit Charges Inpatient E&M: 65906 Subs Hosp L2
[2023-12-15 17:08] LABS: Bedside Glucose 264 mg/dL (74-106)
[2023-12-15] MEDS: Insulin Glargine-YFGN 100 UNIT/ML Pen 45 UNIT SC (21:18)
[2023-12-15 22:46] LABS: Bedside Glucose 253 mg/dL (74-106)
[2023-12-16] VITALS (9 sets, daily range): BP systolic 128–143; BP diastolic 60–79; PULSE 62–89; RESP 18–20; TEMP 36.2–36.7; O2SAT 91–96; BMI 58.1
[2023-12-16 05:24] LABS: Absolute Lymphocyte Count 1.44 X10^3/uL (0.83-4.51); Absolute Neutrophil Count 5.5 X10^3/uL (2.0-7.7); Basophil# 0.03 X10^3/uL; Basophil% 0.4 % (0-1); Eosinophil# 0.22 X10^3/uL; Eosinophils% 2.8 % (0-5); Hematocrit 37.2 % (40-54); Hemoglobin 11.2 g/dL (13.0-16.5); Lymphocyte # 1.44 X10^3/ul (0.83-4.51); Lymphocyte % 18.2 % (19-41); Mean Corp Hgb Conc 30.1 g/dL (32-36); Mean Corpuscular Hgb 27.7 pg (27.0-32.0); Mean Corpuscular Volume 92.1 fL (80-94); Mean Platelet Vol. 10.1 fl (6.2-12.0); Monocyte# 0.74 X10^3/uL; Monocyte% 9.3 % (0-10); NRBC Flagged by Analyzer 0 % (0-5); Neutrophil # 5.46 X10^3/uL (2.7-7.7); Neutrophil % 68.8 % (47-70); Platelet Count 177 K/mm3 (150-450); RBC Distribution Width CV 13.9 % (11.6-14.6); RBC Distribution Width SD 46.5 fl (35.1-43.9); Red Blood Count 4.04 M/mm3 (4.6-6.2); White Blood Count 7.9 K/mm3 (4.4-11.0)
[2023-12-16 06:06] LABS: Anion Gap 3 (5-15); BUN 37 mg/dL (7-18); BUN/Creat Ratio 23.6 RATIO (10-20); Calcium,Total 9.3 mg/dL (8.5-10.1); Chloride 97 mmol/L (98-107); Creatinine, Serum 1.57 mg/dL (0.70-1.30); EST Glomerular Filtration Rate 48 mL/min (>60); Est Glom Filt Rate - Afr Amer 58 mL/min (>60); Estimated Creatinine Clearance 67.17 ml/min; Glucose 123 mg/dL (74-106); Potassium 4.2 mmol/L (3.5-5.1); Sodium Level 138 mmol/L (136-145)
[2023-12-16] MEDS: Ipratropium/Albuterol Sulfate 3 ML AMPUL.NEB INHALATION ×3 (07:43→19:16)
[2023-12-16] MEDS: Carvedilol 25 MG Tablet PO ×2 (08:11→21:12)
[2023-12-16] MEDS: Isosorbide Mononitrate 60 MG Tablet PO (08:12)
[2023-12-16] MEDS: Spironolactone 25 MG Tablet PO (08:12)
[2023-12-16] MEDS: Pantoprazole Sodium 20 MG Tablet PO (08:14)
[2023-12-16] MEDS: Bumetanide 1 MG/4 ML Vial 2 MG IV (08:14)
[2023-12-16 08:54] LABS: Bedside Glucose 120 mg/dL (74-106)
[2023-12-16] MEDS: Insulin Lispro 100 UNIT/ML INSULN.PEN 40 UNIT SC ×3 (10:58→17:46)
[2023-12-16] MEDS: Insulin Glargine-YFGN 100 UNIT/ML Pen 50 UNIT SC (10:58)
[2023-12-16] MEDS: Insulin Lispro 100 UNIT/ML INSULN.PEN SC ×3 (12:01→21:18)
--- NOTE | 2023-12-16 12:56 | PN_ITS ---
Subjective Subjective Patient seen and examined. He felt his breathing had gotten a bit better. However he is worried about his kidneys in light of him being on the IV Bumex. He denies any cough or chest pain, palpitations, dizziness, nausea or vomiting. He is on 3 L of oxygen. Review of systems otherwise negative. Objective Data Objective Data Vital Signs: Vital Signs Temp Pulse Resp BP Pulse Ox O2 Del Method O2 Flow Rate 97.3 F L 89 18 128/79 H 96 Nasal Cannula 3 12/16/23 08:10 12/16/23 08:10 12/16/23 08:10 12/16/23 08:10 12/16/23 10:02 12/16/23 08:10 12/16/23 10:02 Oxygen Flow Rate (L/min) 3 Oxygen Delivery Method Nasal Cannula Weight: 328 lb 7.82 oz Body Mass Index (BMI) 58.1 Intake & Output: Intake and Output for Last 24 Hours 12/14/23 12/15/23 12/16/23 23:59 23:59 23:59 Intake Total 240 / 240 Output Total 1025 / 1775 1200 / 1200 Balance -1025 / -1535 -960 / -960 Lab / Micro Data 12/16/23 04:35 12/16/23 04:35 Labs: Laboratory Results - last 24 hr 12/15/23 16:46: POC Glucose 264 H 12/15/23 21:14: POC Glucose 253 H 12/16/23 04:35: WBC 7.9, RBC 4.04 L, Hgb 11.2 L, Hct 37.2 L, MCV 92.1, MCH 27.7, MCHC 30.1 L, RDW Std Deviation 46.5 H, RDW Coeff of Jung 13.9, Plt Count 177, MPV 10.1, Immature Gran % (Auto) 0.500, Neut % (Auto) 68.8, Lymph % (Auto) 18.2 L, [place] % (Auto) 9.3, Eos % (Auto) 2.8, Baso % (Auto) 0.4, Absolute Neuts (auto) 5.5, Absolute Lymphs (auto) 1.44, Nucleated RBC % 0, Sodium 138, Potassium 4.2, Chloride 97 L, Carbon Dioxide 38.0 H, Anion Gap 3 L, BUN 37 H, Creatinine 1.57 H , Estim Creat Clear Calc 67.17, Est GFR (MDRD) Af Amer 58 L, Est GFR (MDRD) Non- Af 48 L, BUN/Creatinine Ratio 23.6 H, Glucose 123 H, Calcium 9.3 12/16/23 08:19: POC Glucose 120 H Micro: Microbiology 12/14/23 11:20 Mucosa - Nose SARS-CoV-2, Influenza & RSV (PCR) - Final Radiography Diagnostic Testing: Radiology Impression Echocardiogram 12/14/23 18:41 Interpretation Summary The estimated ejection fraction is 60 %. No evidence for diastolic dysfunction. Ordering Physician: Rosalia Farmer Referring Physician: MAYDA CHRISTOPHER Performed By: Madiha Jimenez RCS Physical Exam Const alert, oriented x3, no apparent distress and well nourished Constitutional Narrative: obese General Appearance: cooperative and well developed HEENT normocephalic, head/scalp atraumatic, hearing grossly normal bilaterally and moist oral mucous membranes Eyes PERRL and EOMs intact bilaterally Neck no lymphadenopathy and supple Neck Narrative: short, thick neck Lymph Lymphatic: no lymphadenopathy noted and no lymphedema noted Resp no retractions, no use of accessory muscles and No clear to auscultation bilaterally Resp Narrative: diminished breath sounds Auscultation: crackles; Negative for rhonchi or wheezes Cardio regular rate, regular rhythm, S1 normal heart sound, S2 normal heart sound and no murmurs Palpation: normal PMI GI normal to inspection, nondistended, normoactive bowel sounds, soft to palpation, non-tender and non-distended GI Narrative: Large protuberant abdomen Extremity normal capillary refill, no clubbing, cyanosis or edema and no calf tenderness Extremity Narrative: TRINITY wraps General Extremity: no tenderness to palpation of joints or extremities Skin General Skin Exam: no breakdown Neuro oriented x3, CN's II-XII intact bilaterally, moves all extremities, no focal motor deficits and no sensory deficits noted Speech: speech normal Motor Exam: strength 5/5 throughout and general weakness Psych thought process normal and cooperative Appearance: appropriate Assessment & Plan Assessment/Plan (1) Acute on chronic heart failure with normal ejection fraction: PLAN: Plan #Hypoxia due to acute on chronic HFpEF * being diuresed with IV bumex * on 3L of oxygen. * Titrate oxygen to maintain sats>90% * breathing treatment with bronchodilators * 2D echo showed EF of 60% with no evidence of diastolic dysfunction and no regional wall motion abnormalities noted. * DC IV bumex today and switch to PO bumex * #TYpe 2 diabetes mellitus * on ISS. Accuchecks ACHS * on lantus 50 units daily and * ISS. Accuchecks ACHS * #EITAN * Creatinine is slightly up to 1.57 from 1.53 yesterday. baseline Cr is ~ 0.9 * dc IV bumex and resume PO bumex from tomorrow * Trend Cr #Chronic Metabolic acidosis: Bicarb is 37. He does have chronically elevated bicarb since 2019. This may be due to underlying hypercarbia from sleep apnea. #Benign essential hypertension: On carvedilol and Aldactone. Also on Bumex. #Hyponatremia: resolved. #COPD with asthma: Breathing treatments bronchodilators. Titrate oxygen to maintain saturation above 90% #GERD: On PPI #MARYLU: Noncompliant with CPAP or BiPAP. To follow-up with pulmonology on outpatient basis. #Super morbid obesity: BMI is more than 50. Complicates acute care, expected recovery and prognosis. #DVT prophylaxis: Lovenox twice daily due to BMI Disposition: for likely DC over the next 24-48 hours Charges/Coding Visit Charges Inpatient E&M: 84335 Subs Hosp L2
[2023-12-16 17:00] LABS: Bedside Glucose 176 mg/dL (74-106)
--- NOTE | 2023-12-16 17:02 | CASEMGMT ---
KALA CM to pt room at this time to discuss DC planning. Pt states that he did OK with therapy but that his Oxygen dropped when I was walking. Pt states that he anticipates not discharging until Monday. Pt states that he has a Hx at the [facility]. At this time, the pt is unsure if he would like C or OP Tx set up for him. Pt states that he would like to wait and see how he feels tomorrow. Per the PT note, PT anticipate DC home. CM/SW to follow as available.
[2023-12-16 18:17] LABS: Bedside Glucose 305 mg/dL (74-106)
[2023-12-16] MEDS: 0.9% Saline Lock 10 ML Syringe IV (20:39)
[2023-12-16] MEDS: Insulin Glargine-YFGN 100 UNIT/ML Pen 45 UNIT SC (21:19)
[2023-12-16 23:16] LABS: Bedside Glucose 210 mg/dL (74-106)
[2023-12-17] VITALS (8 sets, daily range): BP systolic 126–131; BP diastolic 60–71; PULSE 63–74; RESP 18–26; TEMP 36.1–36.3; O2SAT 86–94; BMI 57.2
[2023-12-17] MEDS: Hydrocortisone 2.5% Ointment 20 gm tube 1 APPLIC TOPICAL ×2 (03:34→12:38)
[2023-12-17] MEDS: Albuterol 2.5 MG/3 ML VIAL.NEB. INHALATION (04:25)
[2023-12-17 06:12] LABS: Absolute Neutrophil Count 5.7 X10^3/uL (2.0-7.7); Basophil# 0.04 X10^3/uL; Basophil% 0.5 % (0-1); Eosinophil# 0.26 X10^3/uL; Eosinophils% 3.1 % (0-5); Hematocrit 34.7 % (40-54); Hemoglobin 10.6 g/dL (13.0-16.5); Mean Corp Hgb Conc 30.5 g/dL (32-36); Mean Corpuscular Hgb 28.1 pg (27.0-32.0); Mean Platelet Vol. 10.3 fl (6.2-12.0); Monocyte# 0.76 X10^3/uL; NRBC Flagged by Analyzer 0 % (0-5); Neutrophil % 67.2 % (47-70); Platelet Count 184 K/mm3 (150-450); RBC Distribution Width SD 46.6 fl (35.1-43.9); Red Blood Count 3.77 M/mm3 (4.6-6.2); White Blood Count 8.5 K/mm3 (4.4-11.0)
[2023-12-17 06:51] LABS: Anion Gap 5 (5-15); BUN 39 mg/dL (7-18); Chloride 96 mmol/L (98-107); Creatinine, Serum 1.56 mg/dL (0.70-1.30); EST Glomerular Filtration Rate 49 mL/min (>60); Est Glom Filt Rate - Afr Amer 59 mL/min (>60); Glucose 133 mg/dL (74-106); Potassium 4.4 mmol/L (3.5-5.1); Sodium Level 136 mmol/L (136-145)
[2023-12-17] MEDS: Ipratropium/Albuterol Sulfate 3 ML AMPUL.NEB INHALATION ×2 (06:51→12:54)
[2023-12-17 08:51] LABS: Bedside Glucose 118 mg/dL (74-106)
[2023-12-17] MEDS: Spironolactone 25 MG Tablet PO (09:49)
[2023-12-17] MEDS: Bumetanide 0.5 MG Tablet 1 MG PO (09:50)
[2023-12-17] MEDS: Pantoprazole Sodium 20 MG Tablet PO (09:50)
[2023-12-17] MEDS: Carvedilol 25 MG Tablet PO (09:50)
[2023-12-17] MEDS: Isosorbide Mononitrate 60 MG Tablet PO (09:50)
[2023-12-17] MEDS: Insulin Glargine-YFGN 100 UNIT/ML Pen 50 UNIT SC (09:51)
[2023-12-17 11:29] LABS: Bedside Glucose 174 mg/dL (74-106)
[2023-12-17] MEDS: Insulin Lispro 100 UNIT/ML INSULN.PEN SC (12:37)
[2023-12-17] MEDS: Insulin Lispro 100 UNIT/ML INSULN.PEN 40 UNIT SC (12:38)
--- NOTE | 2023-12-17 13:47 | DS.PCM_ITS ---
Providers Date of Admission: 12/14/23 Date of Discharge: 12/17/23 Primary Care Physician: Dr. Armin Chau DO Reason For Visit: HYPOXIA 2/2 HFpEF Diagnosis Discharge Diagnosis (1) Acute on chronic heart failure with normal ejection fraction: Status: Acute Code(s): I50.33 - Acute on chronic diastolic (congestive) heart failure Plan #Hypoxia due to acute on chronic HFpEF * being diuresed with IV bumex * on 3L of oxygen. * Titrate oxygen to maintain sats>90% * breathing treatment with bronchodilators * 2D echo showed EF of 60% with no evidence of diastolic dysfunction and no regional wall motion abnormalities noted. * DC IV bumex today and switch to PO bumex * #TYpe 2 diabetes mellitus * on ISS. Accuchecks ACHS * on lantus 50 units daily and * ISS. Accuchecks ACHS * #EITAN * Creatinine is slightly up to 1.57 from 1.53 yesterday. baseline Cr is ~ 0.9 * dc IV bumex and resume PO bumex from tomorrow * Trend Cr #Chronic Metabolic acidosis: Bicarb is 37. He does have chronically elevated bicarb since 2019. This may be due to underlying hypercarbia from sleep apnea. #Benign essential hypertension: On carvedilol and Aldactone. Also on Bumex. #Hyponatremia: resolved. #COPD with asthma: Breathing treatments bronchodilators. Titrate oxygen to maintain saturation above 90% #GERD: On PPI #MARYLU: Noncompliant with CPAP or BiPAP. To follow-up with pulmonology on outpatient basis. #Super morbid obesity: BMI is more than 50. Complicates acute care, expected recovery and prognosis. #DVT prophylaxis: Lovenox twice daily due to BMI Disposition: for likely DC over the next 24-48 hours Medications at Discharge Home Medications bumetanide 1 mg tablet 1 mg PO DAILY 06/01/19 hydrocortisone 1 % topical ointment 1 applic topical TID excoriated areas 06/01/19 omeprazole magnesium 20 mg tablet,delayed release 20 mg PO DAILY 06/01/19 portable nebulizer #1 ea 12/31/20 ipratropium 0.5 mg-albuterol 3 mg (2.5 mg base)/3 mL nebulization soln 3 ml inhalation Q4H PRN shortness of breath or wheezing #180 mL 01/06/21 liraglutide 0.6 mg/0.1 mL (18 mg/3 mL) subcutaneous pen injector (Victoza 3-Benja) 1.8 mg subcut DAILY 06/29/21 carvedilol 25 mg tablet 25 mg PO BID 12/14/23 cetirizine 10 mg tablet (24Hour Allergy) 10 mg PO DAILY PRN allergy symptoms 12/14/23 gentamicin 0.1 % topical ointment 1 applic topical DAILY PRN skin irritation 12/14/23 hydrocortisone 2.5 % topical cream 1 applic topical DAILY PRN skin irritation 12/14/23 insulin aspart U-100 100 unit/mL (3 mL) subcutaneous pen (Novolog FlexPen U-100 Insulin aspart) 40 unit subcut 4X/DAY 12/14/23 insulin detemir U-100 100 unit/mL (3 mL) subcutaneous pen (Levemir FlexPen) 45 unit subcut QHS 12/14/23 insulin detemir U-100 100 unit/mL (3 mL) subcutaneous pen (Levemir FlexPen) 50 unit subcut DAILY 12/14/23 spironolactone 25 mg tablet 25 mg PO DAILY 12/14/23 isosorbide mononitrate 30 mg tablet,extended release 24 hr 30 mg PO DAILY #30 tabs 12/17/23 Hospital Course Operations None Procedures None Summary of Care Provided Minutes Spent on Discharge: 53 Hospital Course: Patient is a 58-year-old female with past medical history of was admitted through the ED on 12/14/2023 with a complaint of shortness of breath. Patient was 2 L of oxygen at home on account of asthma but said his respiratory status has been worsening and he had had to increase his oxygen to 6 L at home. He also felt he had gained weight and he had lower extremity edema though he did have chronic lower extremity edema. He denied any chest pain or palpitations, or any other symptoms. On admission BNP was only 82.4 but there was concern that this could also still be elevated in light of his morbid obesity. Chest x- ray showed vascular congestion and cardiomegaly. EKG showed no acute ST changes. He was admitted and managed for acute exacerbation of heart failure with preserved ejection fraction. He was diuresed with IV Bumex. His breathing gradually improved and he was weaned down to his baseline 3 L of oxygen. He did have 2D echo which showed EF of 60% with no evidence of diastolic dysfunction and no regional wall motion abnormalities noted. He was weaned down to 2 to 3 L of oxygen which is what he was wearing at home. He was discharged home on 12/17/2023. He was discharged on his home dose of p.o. Bumex 1 g daily. He is follow-up with his primary care doctor within 1 to 2 weeks. Patient seen and examined prior to discharge. He had no active complaints. Review of systems otherwise negative. Labs and vitals reviewed. Home medication reviewed and reconciled. Physical Exam Const alert, oriented x3, no apparent distress and well nourished; Negative for average body habitus or healthy appearing Constitutional Narrative: obese General Appearance: cooperative, comfortable, well kempt and well developed Orientation / Consciousness: awake HEENT normocephalic, head/scalp atraumatic, hearing grossly normal bilaterally and moist oral mucous membranes Mouth: oral and palatal mucosa normal Eyes PERRL and EOMs intact bilaterally Neck no lymphadenopathy and supple Neck Narrative: short, thick neck Lymph Lymphatic: no lymphadenopathy noted and no lymphedema noted Resp no retractions and no use of accessory muscles Resp Narrative: mildly diminished breath sounds bibasally, no wheezes or crackles. On 3L of oxygen by nasal canula. Cardio regular rate, regular rhythm, S1 normal heart sound, S2 normal heart sound, no murmurs, no rub, no gallops and no clicks Palpation: normal PMI GI normal to inspection, nondistended, normoactive bowel sounds, soft to palpation and non-tender GI Narrative: obese abdomen Extremity normal to inspection, normal capillary refill, no clubbing, cyanosis or edema and no calf tenderness Extremity Narrative: TRINITY wraps General Extremity: no tenderness to palpation of joints or extremities Skin General Skin Exam: no breakdown Neuro oriented x3, CN's II-XII intact bilaterally, moves all extremities, no focal motor deficits and no sensory deficits noted Speech: speech normal Motor Exam: strength 5/5 throughout and general weakness Psych thought process normal and cooperative Appearance: appropriate Weight / BMI Weight Weight: 323 lb 6.69 oz Body Mass Index (BMI) 57.2 ABG / Lab / Microbiology Data 12/17/23 05:00 12/17/23 05:00 Laboratory: Laboratory Results - last 24 hr 12/16/23 11:57: POC Glucose 305 H 09/21/24 16:36: POC Glucose 176 H 12/16/23 21:07: POC Glucose 210 H 12/17/23 05:00: WBC 8.5, RBC 3.77 L, Hgb 10.6 L, Hct 34.7 L, MCV 92.0, MCH 28.1, MCHC 30.5 L, RDW Std Deviation 46.6 H, RDW Coeff of Jung 14.0, Plt Count 184, MPV 10.3, Immature Gran % (Auto) 0.200, Neut % (Auto) 67.2, Lymph % (Auto) 20.0, [place] % (Auto) 9.0, Eos % (Auto) 3.1, Baso % (Auto) 0.5, Absolute Neuts (auto) 5.7, Absolute Lymphs (auto) 1.70, Nucleated RBC % 0, Sodium 136, Potassium 4.4, Chloride 96 L, Carbon Dioxide 35.0 H, Anion Gap 5, BUN 39 H, Creatinine 1.56 H, Estim Creat Clear Calc 67.60, Est GFR (MDRD) Af Amer 59 L, Est GFR (MDRD) Non-Af 49 L, BUN/Creatinine Ratio 25.0 H, Glucose 133 H, Calcium 9.0 12/17/23 08:14: POC Glucose 118 H 12/17/23 11:01: POC Glucose 174 H Microbiology: Microbiology 12/14/23 11:20 Mucosa - Nose SARS-CoV-2, Influenza & RSV (PCR) - Final D/C Instructions Discharge Diet: Low fat / Low cholesterol Discharge Activity: Return to Normal Activity Weight Bearing Status: Weight bearing as tolerated Call your doctor if you observe: Fever of 101 or Higher, Shortness of breath, Dizziness, Swelling in the ankles and Chest pain Meaningful Use Info Meaningful Use Meaningful Use Diagnoses (Choose all that apply): CHF CHF TRINITY/ARB ordered at discharge?: No Reason TRINITY/ARB not ordered?: Worsening renal disease Documented LVEF (%): 60 Ischemic Stroke Statin Dosing Therapy Reference: STATIN DOSE THERAPY REFERENCE: * Patients > 75 years receive moderate or high dose statin therapy. * Patients 75 years or YOUNGER should receive HIGH intensity statin dose unless contraindicated. You will be required to document reason for non-treatment if statin daily dose does not meet guidelines. HIGH DOSE STATIN THERAPY DAILY Atorvastatin > than or = to 40 mg Rosuvastatin > than or = to 20 mg Amlodipine + Atorvastatin > than or = to 2.5/40 mg Ezetimibe + Simvastatin 10/80 mg Simvastatin 80mg Discharge Plan Admission Admit Date/Time: 12/14/23 17:52 Primary Reason for Your Visit: acute on chronic HFpEF Attending Provider: Madelaine Lund Primary Care Provider: Armin Chau Consulting Providers: Rosalia Farmer Instructions Patient Instructions: ED Heart Failure, Congestive (CHF) Discharge Orders/Prescriptions Prescriptions: New isosorbide mononitrate 30 mg tablet extended release 24 hr 30 mg PO DAILY Qty: 30 1RF Continued bumetanide 1 MG tablet 1 mg PO DAILY Patient Comments: pt alternates between 1 tab and 2 tabs every other day. 12/14/23- 2 TABS omeprazole magnesium 20 MG tablet,delayed release (DR/EC) 20 mg PO DAILY hydrocortisone 1 APPLIC ointment 1 applic TOPICAL TID liraglutide [Victoza 3-Benja] 0.6 mg/0.1 mL (18 mg/3 mL) Pen Injector 1.8 mg SUBCUT DAILY gentamicin 0.1 % ointment 1 applic topical DAILY PRN (Reason: skin irritation) Levemir FlexPen 100 unit/mL (3 mL) insulin pen 50 unit subcut DAILY Patient Comments: PT TAKES 50 UNITS AT BREAKFAST AND 45 UNITS AT BED TIME Levemir FlexPen 100 unit/mL (3 mL) insulin pen 45 unit subcut QHS Patient Comments: PT TAKES 50 UNITS AT BREAKFAST AND 45 UNITS AT BED TIME carvedilol 25 mg tablet 25 mg PO BID hydrocortisone 2.5 % cream 1 applic topical DAILY PRN (Reason: skin irritation) spironolactone 25 mg tablet 25 mg PO DAILY cetirizine [24Hour Allergy] 10 mg tablet 10 mg PO DAILY PRN (Reason: allergy symptoms) insulin aspart U-100 [Novolog FlexPen U-100 Insulin] 100 unit/mL (3 mL) insulin pen 40 unit subcut 4X/DAY Patient Comments: PT STATES HE TAKES SLIDING SCALE. STATES IF IT IS 200+, HE TAKES 1 UNIT PER BS NUMBER, PLUS THE 40 UNITS. PER [facility], RX STATES MAX 50 UNITS (DME) portable nebulizer See Rx Instructions .Route .MEDSUPPLY Qty: 1 0RF Rx Instructions: As directed ipratropium-albuterol 0.5 mg-3 mg(2.5 mg base)/3 mL solution for nebulization 3 ml INHALATION Q4H PRN (Reason: shortness of breath or wheezing) Qty: 180 3RF Referrals / Follow Up: Armin Chau DO [Primary Care Provider] - Within 1 Week Disposition Disposition (needs filled in before D/C Order can be placed): Home, Self Care Charges/Coding Visit Charges Inpatient E&M: 85520 Disch Hosp >30min
== END 2023-12-17 13:46 | disposition home or self-care (01) ==
LOC: ED 15:02 → PCU 18:03
PROVIDERS: Admitting Provider Internal Medicine; Emergency Provider Emergency Medicine; PCP Family Medicine; Visit Provider Student in an Organized Health Care Education/Training Program
DX: I11.0 Hypertensive heart disease with heart failure (principal); I50.33 Acute on chronic diastolic (congestive) heart failure; J44.89 Other specified chronic obstructive pulmonary disease; Z68.43 Body mass index [BMI] 50.0-59.9, adult; E66.01 Morbid (severe) obesity due to excess calories; E11.65 Type 2 diabetes mellitus with hyperglycemia; Z79.4 Long term (current) use of insulin; D64.9 Anemia, unspecified; E87.1 Hypo-osmolality and hyponatremia; Z99.81 Dependence on supplemental oxygen; E87.22 Chronic metabolic acidosis; Z79.85 Long-term (current) use of injectable non-insulin antidiabetic drugs; R09.02 Hypoxemia; N17.9 Acute kidney failure, unspecified; Z79.899 Other long term (current) drug therapy; I89.0 Lymphedema, not elsewhere classified
CPT/HCPCS: 36415; 51702; 71045; 80048; 80053; 82962; 83036; 83735; 83880; 84100; 84443; 84484; 85025; 87631; 93005; 93306; 93970; 94640; 94668; 96372; 96374; 96376; 97110; 97162; 97802; 99221; 99252; 99285; 99406; Q9957; A4216; C8929; G0378; G0463

== ENCOUNTER 2024-03-10 21:46 | Inpatient (IN) | payer MEDICARE, MEDICAID, SELFPAY ==
[2024-03-10] VITALS (19 sets, daily range): BP systolic 130–194; BP diastolic 63–159; PULSE 79–91; RESP 12–36; TEMP 37.1; O2SAT 74–99; BMI 56.8
--- NOTE | 2024-03-10 22:09 | RAD_ITS ---
STUDY: X-RAY CHEST REASON FOR EXAM: Male, 58 years old. dyspnea TECHNIQUE: Single frontal view of the chest. COMPARISON: December 14, 2023 FINDINGS: The lungs are clear and expanded. There is no demonstrated pleural abnormality. Cardiomegaly. Normal mediastinum and elma. Normal visualized pulmonary arteries. Normal visualized aortic arch and descending thoracic aorta. Normal visualized thoracic spine. Normal visualized ribs, clavicles, and shoulders. There is no demonstrated abnormality of the visualized soft tissue structures of the upper abdomen. RAD/Chest 1 View (Portable) IMPRESSION: No acute disease Electronically Signed: Kunal Zuleta MD at 23:06 EST ,
--- NOTE | 2024-03-10 22:12 | EKG12_ITS ---
Test Reason : SOB Blood Pressure : */* mmHG Vent. Rate : 90 BPM Atrial Rate : 90 BPM P-R Int : 150 ms QRS Dur : 102 ms QT Int : 352 ms P-R-T Axes : 41 113 48 degrees QTcB Int : 430 ms Normal sinus rhythm Right axis deviation Low voltage QRS Abnormal ECG When compared with ECG of 14-Dec-2023 11:15, No significant change was found Confirmed by QASIM BERGER, ENRICO ([id number]), purchasing expeditor GIGI VALENTINE ([id number]) on 03/14/2024 11:02:54 AM Referred By: GALINDO Confirmed By: ENRICO TRIPP MD
[2024-03-10] MEDS: Nitroglycerin SL (ED/IMG/CATH) 0.4 MG TABLET SL (22:18)
[2024-03-10 22:25] LABS: Absolute Lymphocyte Count 0.91 X10^3/uL (0.83-4.51); Absolute Neutrophil Count 5.6 X10^3/uL (2.0-7.7); Basophil# 0.03 X10^3/uL; Basophil% 0.4 % (0-1); Eosinophil# 0.15 X10^3/uL; Hematocrit 45.8 % (40-54); Hemoglobin 13.8 g/dL (13.0-16.5); Lymphocyte # 0.91 X10^3/ul (0.83-4.51); Lymphocyte % 12.3 % (19-41); Mean Corp Hgb Conc 30.1 g/dL (32-36); Mean Corpuscular Hgb 26.9 pg (27.0-32.0); Mean Corpuscular Volume 89.3 fL (80-94); Mean Platelet Vol. 9.9 fl (6.2-12.0); Monocyte# 0.64 X10^3/uL; Monocyte% 8.7 % (0-10); NRBC Flagged by Analyzer 0 % (0-5); Neutrophil # 5.56 X10^3/uL (2.7-7.7); Neutrophil % 75.4 % (47-70); Platelet Count 171 K/mm3 (150-450); RBC Distribution Width CV 14.5 % (11.6-14.6); RBC Distribution Width SD 47.7 fl (35.1-43.9); Red Blood Count 5.13 M/mm3 (4.6-6.2); White Blood Count 7.4 K/mm3 (4.4-11.0)
--- NOTE | 2024-03-10 22:36 | EX.ED.DYSGE1 ---
HPI History of Present Illness Chief Complaint: Shortness of Breath Informant: patient and EMS Narrative Narrative: Patient is a 58-year-old male with past medical history of morbid obesity lymphedema congestive heart failure hypertension COPD and diabetes. He states he wears 3 L of nasal cannula at baseline. He reports he was using his home nebulizer treatments today without any symptom improvement. Secondary to the persistent shortness of breath EMS was called. EMS states when they arrived the patient was 80% on his 3 L. Patient denies any fevers or chills and states he been taking his medications as directed close worsening shortness of breath presents for evaluation [facility] Medical History Elevated blood pressure reading Acute on chronic heart failure with normal ejection fraction Shortness of breath Hypoxia On home oxygen therapy Non-smoker Asthma Cyst of neck Diastolic CHF HTN (hypertension) Accelerated hypertension Hypoxemia COPD (chronic obstructive pulmonary disease) Non-compliance Lower extremity edema Lymphedema Ulcer of left lower extremity with fat layer exposed Ulcer of right lower extremity with fat layer exposed Diabetes Lymphedema Home Medications ?Medication ?Instructions ?Recorded ?Last Taken ?Type bumetanide 1 mg tablet 1 mg PO DAILY 06/01/19 12/13/23 History hydrocortisone 1 % topical ointment 1 applic topical TID excoriated 06/01/19 12/13/23 History areas omeprazole magnesium 20 mg 20 mg PO DAILY 06/01/19 12/13/23 History tablet,delayed release portable nebulizer #1 ea 12/31/20 Unknown Rx ipratropium 0.5 mg-albuterol 3 mg 3 ml inhalation Q4H PRN shortness 01/06/21 12/13/23 Rx (2.5 mg base)/3 mL nebulization of breath or wheezing #180 mL soln liraglutide 0.6 mg/0.1 mL (18 mg/3 1.8 mg subcut DAILY 06/29/21 12/13/23 History mL) subcutaneous pen injector (SeatKarmaza 3-Benja) carvedilol 25 mg tablet 25 mg PO BID 12/14/23 12/13/23 History cetirizine 10 mg tablet (24Hour 10 mg PO DAILY PRN allergy symptoms 12/14/23 12/14/23 History Allergy) gentamicin 0.1 % topical ointment 1 applic topical DAILY PRN skin 12/14/23 12/13/23 History irritation hydrocortisone 2.5 % topical cream 1 applic topical DAILY PRN skin 12/14/23 12/13/23 History irritation insulin aspart U-100 100 unit/mL 40 unit subcut 4X/DAY 12/14/23 Unknown History (3 mL) subcutaneous pen (Novolog FlexPen U-100 Insulin aspart) insulin detemir U-100 100 unit/mL 45 unit subcut QHS 12/14/23 12/13/23 History (3 mL) subcutaneous pen (Levemir FlexPen) insulin detemir U-100 100 unit/mL 50 unit subcut DAILY 12/14/23 12/13/23 History (3 mL) subcutaneous pen (Levemir FlexPen) spironolactone 25 mg tablet 25 mg PO DAILY 12/14/23 12/13/23 History isosorbide mononitrate 30 mg 30 mg PO DAILY #30 tabs 12/17/23 Unknown Rx tablet,extended release 24 hr Allergy/AdvReac Type Severity Reaction Status Date / Time amlodipine (From Norvasc) Allergy Other Verified 03/10/24 21:59 apraclonidine Allergy Other Verified 03/10/24 21:59 diltiazem Allergy Unknown Verified 03/10/24 21:59 doxycycline Allergy Other Verified 03/10/24 21:59 enalapril Allergy Other Verified 03/10/24 21:59 glimepiride Allergy Other Verified 03/10/24 21:59 glipizide (From Glucotrol) Allergy Other Verified 03/10/24 21:59 hydralazine Allergy Other Verified 03/10/24 21:59 ibuprofen Allergy Other Verified 03/10/24 21:59 Influenza Virus Vaccines Allergy Unknown Verified 03/10/24 21:59 latex Allergy Other Verified 03/10/24 21:59 lisinopril Allergy Other Verified 03/10/24 21:59 metoprolol Allergy Other Verified 03/10/24 21:59 montelukast Allergy Other Verified 03/10/24 21:59 Penicillins Allergy Other Verified 03/10/24 21:59 pravastatin Allergy Other Verified 03/10/24 21:59 prednisone Allergy Other Verified 03/10/24 21:59 propranolol Allergy Unknown Verified 03/10/24 21:59 simvastatin (From Zocor) Allergy Other Verified 03/10/24 21:59 sulfamethoxazole (From Allergy Other Verified 03/10/24 21:59 Bactrim) trimethoprim (From Bactrim) Allergy Other Verified 03/10/24 21:59 Family History (Updated 12/14/23 @ 18:[address] Rosalia Farmer DO) Father Diabetes Hyperlipemia Heart disease Other CHF (congestive heart failure) CVA (cerebral vascular accident) Surgical History Hx of [facility] Social History (Updated 12/14/23 @ 18:[address] Rosalia Farmer DO) housing: house current occupational status: unemployed and disabled Smoking Status: Never smoker alcohol intake: never substance use type: does not use ROS ROS ED Constitutional Constitutional ED: Denies chills or fever(s) Eyes Eyes: Denies blurry vision or change in vision ENT ENT ED: Denies rhinorrhea or sore throat Cardiovascular Cardiovascular: Denies chest pain Respiratory/Chest Respiratory/Chest: Reports cough and dyspnea Gastrointestinal Gastrointestinal: Denies abdominal pain, diarrhea, nausea or vomiting Genitourinary Genitourinary ED: Denies dysuria Musculoskeletal Musculoskeletal: Denies myalgias Integumentary Denies rash Neurologic Neurologic: Denies headache(s) Hematologic/Lymphatic Hematologic/Lymphatic: Denies easy bleeding or easy bruising Allergic/Immunologic Allergic/Immunologic ED: Denies mouth swelling or tongue swelling EXAM Physical Exam Const Vital Signs: 03/10/24 21:46 03/10/24 21:53 03/10/24 21:56 Temperature 98.7 F Temperature Source Axillary Pulse Rate 91 90 Respiratory Rate 27 H 26 H Respiratory Effort Respiratory Depth Respiratory Pattern Blood Pressure 178/159 H Blood Pressure Mean 165 Pulse Ox 98 93 74 Oxygen Delivery Method Non-Rebreather Nasal Cannula Nasal Cannula Oxygen Flow Rate (L/min) 15 3 6 Fraction of Inspired Oxygen (FIO2) 03/10/24 21:57 03/10/24 21:57 03/10/24 21:57 Temperature Temperature Source Pulse Rate 91 Respiratory Rate 23 H Respiratory Effort Short of Breath Respiratory Depth Deep Respiratory Pattern Tachypnea Blood Pressure Blood Pressure Mean Pulse Ox 85 88 Oxygen Delivery Method Non-Rebreather Non-Rebreather Oxygen Flow Rate (L/min) 15 Fraction of Inspired Oxygen (FIO2) 03/10/24 21:58 03/10/24 22:00 03/10/24 22:03 Temperature Temperature Source Pulse Rate 89 90 Respiratory Rate 36 H 29 H 28 H Respiratory Effort Respiratory Depth Respiratory Pattern Blood Pressure 179/85 H Blood Pressure Mean 108 Pulse Ox 92 96 98 Oxygen Delivery Method Non-Rebreather Oxygen Flow Rate (L/min) 15 Fraction of Inspired Oxygen (FIO2) 03/10/24 22:04 03/10/24 22:15 03/10/24 22:18 Temperature Temperature Source Pulse Rate 89 88 89 Respiratory Rate 26 H 27 H Respiratory Effort Respiratory Depth Respiratory Pattern Blood Pressure 179/85 H 179/85 H Blood Pressure Mean 116 Pulse Ox 97 99 Oxygen Delivery Method Non-Rebreather Oxygen Flow Rate (L/min) Fraction of Inspired Oxygen (FIO2) 03/10/24 22:20 03/10/24 22:21 03/10/24 22:30 Temperature Temperature Source Pulse Rate 87 86 83 Respiratory Rate 25 H 26 H 25 H Respiratory Effort Respiratory Depth Respiratory Pattern Blood Pressure 177/65 H 177/65 H 130/66 H Blood Pressure Mean 93 102 85 Pulse Ox 97 97 90 Oxygen Delivery Method Bi-pap Bi-pap Oxygen Flow Rate (L/min) Fraction of Inspired Oxygen (FIO2) 40 40 03/10/24 22:45 03/10/24 22:58 03/10/24 23:00 Temperature Temperature Source Pulse Rate 79 83 82 Respiratory Rate 21 H 25 H 28 H Respiratory Effort Respiratory Depth Respiratory Pattern Tachypnea Blood Pressure 152/69 H 176/68 H Blood Pressure Mean 93 100 Pulse Ox 92 90 92 Oxygen Delivery Method Bi-pap Bi-pap Oxygen Flow Rate (L/min) Fraction of Inspired Oxygen (FIO2) 40 40 40 03/10/24 23:15 03/10/24 23:30 Temperature Temperature Source Pulse Rate 82 85 Respiratory Rate 29 H 30 H Respiratory Effort Respiratory Depth Respiratory Pattern Blood Pressure 194/63 H 183/75 H Blood Pressure Mean 97 99 Pulse Ox 92 90 Oxygen Delivery Method Bi-pap Bi-pap Oxygen Flow Rate (L/min) Fraction of Inspired Oxygen (FIO2) 40 40 Positive well nourished, well developed and obese General Appearance ED: well developed; Negative for pallor Nutritional Appearance: obese HEENT HEENT Narrative: No tongue or lip swelling no oral lesions no airway edema or compromise Eyes PERRL and EOMs intact bilaterally General Eye ED: Negative for scleral icterus Neck supple Neck Narrative: Mild JVD is noted Chest Wall palpation of chest normal Resp Resp Narrative: Patient is tachypneic with accessory muscle use. Breath sounds are diminished throughout with faint expiratory wheeze diffusely and crackles noted in bilateral bases Cardio regular rate and regular rhythm GI normal to inspection, nondistended, normoactive bowel sounds, non-tender, non-distended and no masses GI Narrative: No voluntary guarding or rigidity or pulsatile mass No fluid wave noted Auscultation: normoactive bowel sounds Palpation: soft Extremity Extremity Narrative: Patient has +2-3 pitting edema of the bilateral lower extremities that is equal and symmetric and chronic in nature There are chronic stasis changes noted bilaterally as well consistent with history of lymphedema without obvious findings to suggest secondary infection such as cellulitis or abscess Neuro oriented x3, CN's II-XII intact bilaterally and no sensory deficits noted Sensorium / Orientation: alert Psych Psych Narrative: Patient has a depressed/flat affect Mood & Affect: depressed Skin Skin Narrative: Chronic stasis changes of the bilateral lower legs as documented above General Skin Exam: Negative for pallor MDM MDM MDM Narrative Medical decision making narrative: Patient arrived to the ER with a nonrebreather and his pulse ox had improved to the mid to high 90s. However as he normally wears 3 L of oxygen at home and was satting 80% on his normal 3 L this is concerning for COPD exacerbation versus CHF exacerbation versus pneumonia. There is also concern for acute blood loss anemia or infection secondary to COVID influenza or RSV. Secondary to this basic labs were obtained as well as a blood gas. Blood gas shows respiratory acidosis with pH of 7.22 and hypercarbia a with a pCO2 of 90 correlating with his respiratory distress. Patient was given what some lingual nitro to reduce preload and placed on BiPAP as his physical exam did suggest more of a CHF exacerbation than COPD. He did have some slight wheezes and we discussed providing steroids but he states he does not tolerate them well and therefore they are held off and as the patient took home nebulizer treatments prior to arrival I felt no need to repeat these at this time. The patient's chest x-ray revealed cardiomegaly and signs of vascular congestion which correlate with his CHF. With IV Lasix sublingual nitro and BiPAP his pulse ox is maintaining steady between 90 and 93% and repeat blood gas shows that his CO2 is improving slightly with noninvasive ventilation. I do feel that there is no need for intubation at this time as his mental status has improved from initial evaluation and that he will just require prolonged BiPAP in order to help with his CHF and CO2 retention. Therefore at this time as he is requiring higher amount and more invasive oxygen therapy than his baseline he will need to be admitted to the hospital for continued BiPAP and diuresis. Secondary to this the hospitalist was contacted who agrees to accept the patient for further care. As he does not have a fever or white count or lactic acidosis and his x-ray does not show pneumonia I do not feel need for antibiotics at this time. History & Record Review Discussion w/independent historian: EMS personnel and Patient Lab Data Attestation: I reviewed the patient's lab results. Labs: Laboratory Results - last 24 hr 03/10/24 22:15 WBC 7.4 RBC 5.13 Hgb 13.8 Hct 45.8 MCV 89.3 MCH 26.9 L MCHC 30.1 L RDW Std Deviation 47.7 H RDW Coeff of Jung 14.5 Plt Count 171 MPV 9.9 Immature Gran % (Auto) 1.200 H Neut % (Auto) 75.4 H Lymph % (Auto) 12.3 L Sumner % (Auto) 8.7 Eos % (Auto) 2.0 Baso % (Auto) 0.4 Absolute Neuts (auto) 5.6 Absolute Lymphs (auto) 0.91 Nucleated RBC % 0 Sodium 133 L Potassium 5.1 Chloride 94 L Carbon Dioxide 38.0 H Anion Gap 1 L BUN 28 H Creatinine 1.98 H Estim Creat Clear Calc 52.49 Est GFR (MDRD) Af Amer 45 L Est GFR (MDRD) Non-Af 37 L BUN/Creatinine Ratio 14.1 Glucose 390 H Lactic Acid 1.7 Calcium 9.1 Magnesium 2.4 ABG Data ABG results: ABG 03/10/24 03/10/24 22:38 23:51 Specimen Type ART ART Sample Site L Radial R Radial pH 7.22 L 7.23 L Bicarbonate Actual 37.0 H 34.6 H Total CO2 40 37 Base Excess 9 H 7 H O2 Saturation 80 L 89 L O2 % 40.0 40.0 ABG pCO2 90.2 H* 82.1 H* ABG pO2 56 L 70 L Catarino Test Positive Positive O2 Delivery Device BiPAP BiPAP Vent Mode Not entered Not entered Crit Call To/Read Back Yes Yes Blood Gas Notified Whom dr. gennaro burdick Blood Gas Notified Time 22:40:36 23:52:52 Radiography Diagnostic Testing: Clinical Impression(s) from Imaging Studies Chest X-Ray 03/10/24 22:09 IMPRESSION: No acute disease Electronically Signed: Kunal Zuleta MD at 23:06 EST Reading Location ID and State: [facility] / [place] Tel , Service support , Chest x-ray as interpreted by the emergency medicine physician reveals mild cardiomegaly with vascular congestion consistent with CHF. Management Discussion w/another healthcare provider: Hospitalist Critical Care Time Critical Care Time: Yes Critical care time (excluding procedures): Discussing w/Patient &/or Family/Clinical Therapist, Discussing w/Consultants, Performing Direct Patient Care at Bedside and - (Critical care time of 31-minute) Discharge Plan Dx/Rx/DC Orders Clinical Impression: Acute and chronic respiratory failure with hypercapnia, HTN (hypertension), Congestive heart failure (CHF), COPD (chronic obstructive pulmonary disease), Hypoxia, Insulin dependent diabetes mellitus Disposition Disposition: Acute Care Hospital [facility]
[2024-03-10 22:42] LABS: Anion Gap 1 (5-15); BUN 28 mg/dL (7-18); BUN/Creat Ratio 14.1 RATIO (10-20); Calcium,Total 9.1 mg/dL (8.5-10.1); Chloride 94 mmol/L (98-107); Creatinine, Serum 1.98 mg/dL (0.70-1.30); EST Glomerular Filtration Rate 37 mL/min (>60); Est Glom Filt Rate - Afr Amer 45 mL/min (>60); Estimated Creatinine Clearance 52.49 ml/min; Glucose 390 mg/dL (74-106); Magnesium 2.4 mg/dL (1.6-2.6); Potassium 5.1 mmol/L (3.5-5.1); Sodium Level 133 mmol/L (136-145)
[2024-03-10 22:43] LABS: Allen Test Positive; Base Excess 9 mmol/L (-2 to +2); Blood Gas Specimen Type ART; Mode Not entered; O2 Delivery Device BiPAP; PO2 56 mmHG (75-100); SITE L Radial; SO2 80 % (95-99); Total Carbon Dioxide 40 mmol/L; pCO2 90.2 mmHg (35-45); pH 7.22 (7.35-7.45)
[2024-03-10 22:46] LABS: Lactic Acid 1.7 mmol/L (0.4-1.9)
[2024-03-10] MEDS: Furosemide 40 MG/4 ML Vial IV (23:12)
--- NOTE | 2024-03-10 23:51 | HP.PCM.HOS_ITS ---
HPI - General General Date of Admission: 03/10/24 Date of Service: 03/10/24 Chief Complaint: Dyspnea, acute on chronic hypoxia HPI Narrative The patient is a 58 y/o M w/ PMHx: MARYLU noncompliant with PAP therapy, CKD stage III unclear subtype per GFR trending, Morbid obesity, HFpEF, HTN, HLD, Chronic BL LE Lymphedema, COPD/Asthma w/ Chronic Hypoxic Respiratory Failure (3L NC), Diabetes mellitus type II who presents to the [facility] ED with significantly worsening shortness of breath over the last couple days, more severe and worsening starting approximately 3 PM without relief at home with home self- administered nebulizer treatments prompting EMS call who reported patient initially 80% on room air prompting ED evaluation to be cautious. He denies any marked cough with this presentation. He denies any specific weight gain or markedly worsened lower extremity swelling. He does report increased orthopnea. Workup in the ED initially T98.7, heart rate 91, respiratory rate 27, 98% on a 15 L nonrebreather improving to heart rate 90, BP 178/159, respiratory rate 2693% on home 3 L nasal cannula supplementation--> eventually desaturating down to 74% placed on 6 L nasal cannula and eventually placed back on a nonrebreather with respiratory rate 26, 87% on nonrebreather--> placed on a BiPAP noted to be 97% on 40% FiO2, CBC with WBC 7.4, hemoglobin 13.8, platelet 171 with increased immature granulocytes, BMP with sodium 133, chloride 94, carbon oxide of 38, BUN/creatinine 28/1.98, GFR 37, glucose 390, lactic acid 1.7, magnesium 2.4, BNP pending upon admission, procalcitonin pending upon admission, chest x-ray with radiology read as no acute cardiopulmonary findings but from comparison with prior more consistent with volume overload, rapid SARS COVID/influenza/RSV PCR negative, ABG with pH 7.22, bicarb 37, O2 saturation 80%, pCO2 90.2, pO2 56 on BiPAP. In the ED patient ministered nitroglycerin 0.4 mg sublingual x 1 and Lasix 40 mg IV x 1. Repeat ABG with pH 7.23, bicarb 34.6, O2 saturation 89%, pO2 70, pCO2 82.1 discussed with ED physician and respiratory with further adjustments requested. [facility] Medical History Morbid obesity CKD (chronic kidney disease), stage III MARYLU (obstructive sleep apnea) HLD (hyperlipidemia) Insulin dependent diabetes mellitus Chronic respiratory failure with hypoxia and hypercapnia (HFpEF) heart failure with preserved ejection fraction Non-smoker Asthma HTN (hypertension) COPD (chronic obstructive pulmonary disease) Non-compliance Lymphedema Ulcer of left lower extremity with fat layer exposed Ulcer of right lower extremity with fat layer exposed Home Medications ?Medication ?Instructions ?Recorded ?Last Taken ?Type bumetanide 1 mg tablet 1 mg PO DAILY 06/01/19 12/13/23 History hydrocortisone 1 % topical ointment 1 applic topical TID excoriated 06/01/19 12/13/23 History areas omeprazole magnesium 20 mg 20 mg PO DAILY 06/01/19 12/13/23 History tablet,delayed release portable nebulizer #1 ea 12/31/20 Unknown Rx ipratropium 0.5 mg-albuterol 3 mg 3 ml inhalation Q4H PRN shortness 01/06/21 12/13/23 Rx (2.5 mg base)/3 mL nebulization of breath or wheezing #180 mL soln liraglutide 0.6 mg/0.1 mL (18 mg/3 1.8 mg subcut DAILY 06/29/21 12/13/23 History mL) subcutaneous pen injector (Narvalousza 3-Benja) carvedilol 25 mg tablet 25 mg PO BID 12/14/23 12/13/23 History cetirizine 10 mg tablet (24Hour 10 mg PO DAILY PRN allergy symptoms 12/14/23 12/14/23 History Allergy) gentamicin 0.1 % topical ointment 1 applic topical DAILY PRN skin 12/14/23 12/13/23 History irritation hydrocortisone 2.5 % topical cream 1 applic topical DAILY PRN skin 12/14/23 12/13/23 History irritation insulin aspart U-100 100 unit/mL 40 unit subcut 4X/DAY 12/14/23 Unknown History (3 mL) subcutaneous pen (Novolog FlexPen U-100 Insulin aspart) insulin detemir U-100 100 unit/mL 45 unit subcut QHS 12/14/23 12/13/23 History (3 mL) subcutaneous pen (Levemir FlexPen) insulin detemir U-100 100 unit/mL 50 unit subcut DAILY 12/14/23 12/13/23 History (3 mL) subcutaneous pen (Levemir FlexPen) spironolactone 25 mg tablet 25 mg PO DAILY 12/14/23 12/13/23 History isosorbide mononitrate 30 mg 30 mg PO DAILY #30 tabs 12/17/23 Unknown Rx tablet,extended release 24 hr Allergy/AdvReac Type Severity Reaction Status Date / Time amlodipine (From [facility]) Allergy Other Verified 03/10/24 21:59 apraclonidine Allergy Other Verified 03/10/24 21:59 diltiazem Allergy Unknown Verified 03/10/24 21:59 doxycycline Allergy Other Verified 03/10/24 21:59 enalapril Allergy Other Verified 03/10/24 21:59 glimepiride Allergy Other Verified 03/10/24 21:59 glipizide (From Glucotrol) Allergy Other Verified 03/10/24 21:59 hydralazine Allergy Other Verified 03/10/24 21:59 ibuprofen Allergy Other Verified 03/10/24 21:59 Influenza Virus Vaccines Allergy Unknown Verified 03/10/24 21:59 latex Allergy Other Verified 03/10/24 21:59 lisinopril Allergy Other Verified 03/10/24 21:59 metoprolol Allergy Other Verified 03/10/24 21:59 montelukast Allergy Other Verified 03/10/24 21:59 Penicillins Allergy Other Verified 03/10/24 21:59 pravastatin Allergy Other Verified 03/10/24 21:59 prednisone Allergy Other Verified 03/10/24 21:59 propranolol Allergy Unknown Verified 03/10/24 21:59 simvastatin (From Zocor) Allergy Other Verified 03/10/24 21:59 sulfamethoxazole (From Allergy Other Verified 03/10/24 21:59 Bactrim) trimethoprim (From Bactrim) Allergy Other Verified 03/10/24 21:59 Family History Father Diabetes Hyperlipemia Heart disease Mother CHF (congestive heart failure) Heart disease CVA (cerebral vascular accident) Surgical History Hx of [facility] Social History housing: house current occupational status: unemployed and disabled Smoking Status: Never smoker alcohol intake: never substance use type: does not use ROS ROS Narrative Admission Review of Systems: CONSTITUTIONAL: No weight loss, fever, chills, + weakness or fatigue. HEENT: Eyes: No visual loss, blurred vision, double vision or yellow sclerae. Ears, Nose, Throat: No hearing loss, sneezing, congestion, runny nose or sore throat. SKIN: No rash or itching, lesions, wounds. CARDIOVASCULAR: + Chronic bilateral lower extremity lymphedema, orthopnea. No chest pain, chest pressure or chest discomfort, palpitations, syncopal events. RESPIRATORY: + Dyspnea. No marked cough or wheezing. No hemoptysis. GASTROINTESTINAL: No anorexia, nausea, vomiting or diarrhea, abdominal pain, melena, BRBPR. GENITOURINARY: No dysuria, frequency, urgency or retention. NEUROLOGICAL: No headache, dizziness, syncope, paralysis, ataxia, numbness or tingling in the extremities, focal weakness, change in bowel or bladder control, seizure. MUSCULOSKELETAL: + muscle, back pain, joint pain or stiffness. HEMATOLOGIC: Chronic anemia. No + bleeding or bruising. LYMPHATICS: No enlarged nodes. No history of splenectomy. PSYCHIATRIC: No history of depression or anxiety. ENDOCRINOLOGIC: No reports of sweating, cold or heat intolerance. No polyuria or polydipsia. ALLERGIES: + History of asthma, allergic rhinitis. Vital Signs Vital Signs Vital Signs: 03/10/24 21:46 03/10/24 21:53 03/10/24 21:56 Temperature 98.7 F Temperature Source Axillary Pulse Rate 91 90 Respiratory Rate 27 H 26 H Respiratory Effort Respiratory Depth Respiratory Pattern Blood Pressure 178/159 H Blood Pressure Mean 165 Pulse Ox 98 93 74 Oxygen Delivery Method Non-Rebreather Nasal Cannula Nasal Cannula Oxygen Flow Rate (L/min) 15 3 6 Fraction of Inspired Oxygen (FIO2) 03/10/24 21:57 03/10/24 21:57 03/10/24 21:57 Temperature Temperature Source Pulse Rate 91 Respiratory Rate 23 H Respiratory Effort Short of Breath Respiratory Depth Deep Respiratory Pattern Tachypnea Blood Pressure Blood Pressure Mean Pulse Ox 85 88 Oxygen Delivery Method Non-Rebreather Non-Rebreather Oxygen Flow Rate (L/min) 15 Fraction of Inspired Oxygen (FIO2) 03/10/24 21:58 03/10/24 22:00 03/10/24 22:03 Temperature Temperature Source Pulse Rate 89 90 Respiratory Rate 36 H 29 H 28 H Respiratory Effort Respiratory Depth Respiratory Pattern Blood Pressure 179/85 H Blood Pressure Mean 108 Pulse Ox 92 96 98 Oxygen Delivery Method Non-Rebreather Oxygen Flow Rate (L/min) 15 Fraction of Inspired Oxygen (FIO2) 03/10/24 22:04 03/10/24 22:15 03/10/24 22:18 Temperature Temperature Source Pulse Rate 89 88 89 Respiratory Rate 26 H 27 H Respiratory Effort Respiratory Depth Respiratory Pattern Blood Pressure 179/85 H 179/85 H Blood Pressure Mean 116 Pulse Ox 97 99 Oxygen Delivery Method Non-Rebreather Oxygen Flow Rate (L/min) Fraction of Inspired Oxygen (FIO2) 03/10/24 22:20 03/10/24 22:21 03/10/24 22:30 Temperature Temperature Source Pulse Rate 87 86 83 Respiratory Rate 25 H 26 H 25 H Respiratory Effort Respiratory Depth Respiratory Pattern Blood Pressure 177/65 H 177/65 H 130/66 H Blood Pressure Mean 93 102 85 Pulse Ox 97 97 90 Oxygen Delivery Method Bi-pap Bi-pap Oxygen Flow Rate (L/min) Fraction of Inspired Oxygen (FIO2) 40 40 03/10/24 22:45 03/10/24 22:58 03/10/24 23:00 Temperature Temperature Source Pulse Rate 79 83 82 Respiratory Rate 21 H 25 H 28 H Respiratory Effort Respiratory Depth Respiratory Pattern Normal Blood Pressure 152/69 H 176/68 H Blood Pressure Mean 93 100 Pulse Ox 92 90 92 Oxygen Delivery Method Bi-pap Bi-pap Oxygen Flow Rate (L/min) Fraction of Inspired Oxygen (FIO2) 40 40 40 03/10/24 23:15 03/10/24 23:30 Temperature Temperature Source Pulse Rate 82 85 Respiratory Rate 29 H 30 H Respiratory Effort Respiratory Depth Respiratory Pattern Blood Pressure 194/63 H 183/75 H Blood Pressure Mean 97 99 Pulse Ox 92 90 Oxygen Delivery Method Bi-pap Bi-pap Oxygen Flow Rate (L/min) Fraction of Inspired Oxygen (FIO2) 40 40 Weight Weight: 320 lb 15.889 oz Body Mass Index (BMI) 56.8 Physical Exam Narrative Physical Examination: General: Awake, alert, oriented to self, place and recent vent but difficult evaluation given wearing BiPAP, remains cooperative but several times tapping and wants his BiPAP off but discussed at length this is still needed, currently still increased respiratory rate with some accessory muscle usage but notes he feels improved since initial ED arrival. Skin: Normal color, normal turgor, no icterus, no cyanosis except for bilateral lower extremity significant lymphedema, lichenification, stasis disease, intertrigo. HEENT: AT/NC, EOMI, PERRLA, dry MM, BiPAP in place, unable to discern carotid bruits given referred sounds, difficult to assess JVD given thickened neck. Lungs: Severely diffusely diminished, unable to discern any wheezing or rales, mildly increased respiratory rate with some accessory muscle usage, BiPAP in place. Heart: Regular rate and rhythm; no gallop, rub audible. Abdomen: Soft, morbidly obese, NTTP, distant BS, difficult to discern distention or HSM given habitus. Extremities: No cyanosis, no clubbing, significant bilateral lower extremity pedal 2 knee chronic lymphedema. Neurological: Patient awake, alert, oriented as noted, cognitive function intact; pupils equally reactive to light and accommodation, cranial nerves grossly normal, moving all 4 extremities, no focal deficits, strength severely global decreased secondary to acute presentation and underlying comorbidities. Psychiatric: Affect appears fatigued, respiratory distress is lasting, notes feeling mildly improved since initial ED arrival, continued on BiPAP, no acute evidence of depressive or anxiety feelings. Results Lab / Micro Data 03/10/24 22:15 03/10/24 22:15 Labs: Laboratory Results - last 24 hr 03/10/24 22:15: WBC 7.4, RBC 5.13, Hgb 13.8, Hct 45.8, MCV 89.3, MCH 26.9 L, M CHC 30.1 L, RDW Std Deviation 47.7 H, RDW Coeff of Jung 14.5, Plt Count 171, MPV 9.9, Immature Gran % (Auto) 1.200 H, Neut % (Auto) 75.4 H, Lymph % (Auto) 12.3 L , [place] % (Auto) 8.7, Eos % (Auto) 2.0, Baso % (Auto) 0.4, Absolute Neuts (auto) 5.6, Absolute Lymphs (auto) 0.91, Nucleated RBC % 0, Sodium 133 L, Potassium 5.1, Chloride 94 L, Carbon Dioxide 38.0 H, Anion Gap 1 L, BUN 28 H, Creatinine 1.98 H, Estim Creat Clear Calc 52.49, Est GFR (MDRD) Af Amer 45 L, Est GFR (MDRD) Non-Af 37 L, BUN/Creatinine Ratio 14.1, Glucose 390 H, Lactic Acid 1.7, Calcium 9.1, Magnesium 2.4 Micro: Microbiology 03/10/24 22:25 Mucosa - Nose SARS-CoV-2, Influenza & RSV (PCR) - Final ABG Data ABG results: ABG 03/10/24 22:38 Specimen Type ART Sample Site L Radial pH 7.22 L Bicarbonate Actual 37.0 H Total CO2 40 Base Excess 9 H O2 Saturation 80 L O2 % 40.0 ABG pCO2 90.2 H* ABG pO2 56 L Catarino Test Positive O2 Delivery Device BiPAP Vent Mode Not entered Crit Call To/Read Back Yes Blood Gas Notified Whom dr. burdick Blood Gas Notified Time 22:40:36 Imaging Radiology Impression Chest X-Ray 03/10/24 22:09 IMPRESSION: No acute disease Electronically Signed: Kunal Zuleta MD at 23:06 EST , Assessment & Plan Assessment/Plan (1) Acute on chronic respiratory failure with hypoxia and hypercapnia: PLAN: Plan The patient is a 58 y/o M w/ PMHx: MARYLU noncompliant with PAP therapy, CKD stage III unclear subtype per GFR trending, Morbid obesity, HFpEF, HTN, HLD, Chronic BL LE Lymphedema, COPD/Asthma w/ Chronic Hypoxic Respiratory Failure (3L NC), Diabetes mellitus type II who presents to the [facility] ED with significantly worsening shortness of breath over the last couple days, more severe and worsening starting approximately 3 PM without relief at home with home self- administered nebulizer treatments prompting EMS call who reported patient initially 80% on room air prompting ED evaluation to be cautious. #1. Acute Hypoxic and Hypercarbic Respiratory Failure on Chronic secondary to Acute Decompensated HFpEF: Patient administered IV lasix in the ED, given current status will plan admission to the ICU, will maintain on BiPAP, will maintain on cardiac telemetry, will obtain cardiac enzyme series, obtain serial EKGs, continue IV lasix diuresis, monitor I/Os, maintain on intake restriction, continue medical therapy, obtain TSH and magnesium level. Most recent ECHO noted 12/14/2023 with EF 60% with no evidence of diastolic dysfunction thus will not repeat given timeline. Will place neck rossy wraps with lower extremity elevation. Will consult hotel clerk per protocol. Pending response to diuresis and BiPAP may consider cardiology involvement. #2. Acute increased creatinine/acute renal insufficiency on Chronic Kidney Disease Stage III, unclear subtype per GFR trending: Admission BUN/Cr 28/1.98, GFR 37, baseline renal function 1.4-1.5 per most recent GFR trending, most recent prior to this 12/17/2023 creatinine 1.56, repeat BMP in AM. #3. Chronic COPD/asthma with chronic hypoxic and hypercarbic respiratory failure, complicates #1: Will maintain on oxygen with wean as tolerated to home supplementation, will temporarily hold home inhalers in the interim will maintain on ATC duonebs, PRN albuterol, HOB, IS parameters. #4. Hypertension: Continue home regimen including spironolactone, isosorbide, Coreg, IV Lasix as noted, PRN hydralazine. #5. Hyperlipidemia: Per current list is not on statin therapy, noted statin intolerance, FLP in AM. #6. Diabetes mellitus type II with hyperglycemia: Hold oral home regimen, continue home insulin regimen, ADA diet, accu checks w/ ISS. #7. Bilateral lower extremity chronic lymphedema: Will place neck rossy wraps with elevation. #8. Morbid Obesity: Weight loss and lifestyle changes encouraged. #9. GERD: Will maintain patient on PPI. #10. DVT prophylaxis: Lovenox. #11. CODE status: Full Code status. Charges/Coding Visit Charges Inpatient E&M: 91578 Init Hosp L3
[2024-03-10 23:55] LABS: Allen Test Positive; Base Excess 7 mmol/L (-2 to +2); Bicarbonate 34.6 mmol/L (22-26); Blood Gas Specimen Type ART; Mode Not entered; O2 Delivery Device BiPAP; PO2 70 mmHG (75-100); SITE R Radial; SO2 89 % (95-99); Total Carbon Dioxide 37 mmol/L; pCO2 82.1 mmHg (35-45); pH 7.23 (7.35-7.45)
[2024-03-11] VITALS (50 sets, daily range): BP systolic 46–180; BP diastolic 28–107; PULSE 73–128; RESP 12–34; TEMP 35.9–36.8; O2SAT 89–98; BMI 55.7; BMI 25.2
--- NOTE | 2024-03-11 00:44 | NURSING ---
Pt has personal walker at home.
[2024-03-11] MEDS: Nitroglycerin Oint 1 INCH PACKET 0.5 INCH TD (01:41)
[2024-03-11 01:58] LABS: Magnesium 2.4 mg/dL (1.6-2.6); Troponin-I HS 13 pg/mL (3.0-78.0)
[2024-03-11 03:26] LABS: Allen Test Positive; Base Excess 10 mmol/L (-2 to +2); Bicarbonate 36.6 mmol/L (22-26); Blood Gas Specimen Type ART; Mode Not entered; O2 Delivery Device BiPAP; PO2 76 mmHG (75-100); RR 12; SITE L Radial; SO2 92 % (95-99); Total Carbon Dioxide 39 mmol/L; pCO2 79.9 mmHg (35-45); pH 7.27 (7.35-7.45)
[2024-03-11 04:03] LABS: Absolute Lymphocyte Count 0.68 X10^3/uL (0.83-4.51); Absolute Neutrophil Count 6.4 X10^3/uL (2.0-7.7); Basophil# 0.03 X10^3/uL; Basophil% 0.4 % (0-1); Eosinophil# 0.06 X10^3/uL; Eosinophils% 0.8 % (0-5); Hemoglobin 13.3 g/dL (13.0-16.5); Lymphocyte # 0.68 X10^3/ul (0.83-4.51); Lymphocyte % 8.5 % (19-41); Mean Corp Hgb Conc 30.2 g/dL (32-36); Mean Corpuscular Hgb 27.1 pg (27.0-32.0); Mean Corpuscular Volume 89.6 fL (80-94); Mean Platelet Vol. 9.7 fl (6.2-12.0); Monocyte# 0.79 X10^3/uL; Monocyte% 9.9 % (0-10); NRBC Flagged by Analyzer 0 % (0-5); Neutrophil # 6.41 X10^3/uL (2.7-7.7); Platelet Count 173 K/mm3 (150-450); RBC Distribution Width CV 14.6 % (11.6-14.6); RBC Distribution Width SD 47.8 fl (35.1-43.9); Red Blood Count 4.91 M/mm3 (4.6-6.2)
[2024-03-11 04:30] LABS: Cholesterol 212 mg/dL (200); High Density Lipoprotein 37 mg/dL; Triglycerides 209 mg/dL; Very Low Density Lipoprotein 42 mg/dL (5-40)
[2024-03-11 05:00] LABS: Troponin-I HS 16 pg/mL (3.0-78.0)
[2024-03-11] MEDS: 0.9% Saline Lock 10 ML Syringe IV (05:16)
[2024-03-11] MEDS: Insulin Lispro 100 UNIT/ML INSULN.PEN SC ×4 (06:47→23:14)
[2024-03-11 07:02] LABS: Bedside Glucose 235 mg/dL (74-106)
--- NOTE | 2024-03-11 07:02 | PN.HOSP_ITS ---
Reason for Visit Reason for Visit: Diagnoses Acute and chronic respiratory failure with hypoxia (03/10/24) Acute and chronic respiratory failure with hypercapnia (03/10/24) Subjective Subjective On BiPAP, unresonsive. Objective Data Objective Data Vital Signs: Vital Signs Temp Pulse Resp BP Pulse Ox O2 Del Method O2 Flow Rate 36.6 C 92 25 H 146/62 H 90 Bi-pap 15 03/11/24 06:00 03/11/24 06:00 03/11/24 06:00 03/11/24 06:00 03/11/24 06:00 03/11/24 06:00 03/10/24 21:58 FiO2 55 03/11/24 06:00 Oxygen Flow Rate (L/min) 15 Oxygen Delivery Method Bi-pap Weight: 64.773 kg Body Mass Index (BMI) 25.2 Intake & Output: Intake and Output for Last 24 Hours 03/09/24 03/10/24 03/11/24 23:59 23:59 23:59 Output Total 500 / 500 Balance -500 / -500 Lab / Micro Data 03/11/24 03:55 03/11/24 07:47 Labs: Laboratory Results - last 24 hr 03/10/24 22:15: WBC 7.4, RBC 5.13, Hgb 13.8, Hct 45.8, MCV 89.3, MCH 26.9 L, M CHC 30.1 L, RDW Std Deviation 47.7 H, RDW Coeff of Jung 14.5, Plt Count 171, MPV 9.9, Immature Gran % (Auto) 1.200 H, Neut % (Auto) 75.4 H, Lymph % (Auto) 12.3 L , [place] % (Auto) 8.7, Eos % (Auto) 2.0, Baso % (Auto) 0.4, Absolute Neuts (auto) 5.6, Absolute Lymphs (auto) 0.91, Nucleated RBC % 0, Sodium 133 L, Potassium 5.1, Chloride 94 L, Carbon Dioxide 38.0 H, Anion Gap 1 L, BUN 28 H, Creatinine 1.98 H, Estim Creat Clear Calc 52.49, Est GFR (MDRD) Af Amer 45 L, Est GFR (MDRD) Non-Af 37 L, BUN/Creatinine Ratio 14.1, Glucose 390 H, Lactic Acid 1.7, Calcium 9.1, Magnesium 2.4 03/11/24 01:25: Magnesium 2.4, Troponin I High Sens 13 03/11/24 03:55: WBC 8.0, RBC 4.91, Hgb 13.3, Hct 44.0, MCV 89.6, MCH 27.1, MCHC 30.2 L, RDW Std Deviation 47.8 H, RDW Coeff of Jung 14.6, Plt Count 173, MPV 9.7, Immature Gran % (Auto) 0.400, Neut % (Auto) 80.0 H, Lymph % (Auto) 8.5 L, [place] % (Auto) 9.9, Eos % (Auto) 0.8, Baso % (Auto) 0.4, Absolute Neuts (auto) 6.4, A bsolute Lymphs (auto) 0.68 L, Nucleated RBC % 0, Troponin I High Sens 16, T riglycerides 209 H, Cholesterol 212 H, LDL Cholesterol 133 H, VLDL Cholesterol 42 H, HDL Cholesterol 37 L Micro: Microbiology 03/10/24 22:25 Mucosa - Nose SARS-CoV-2, Influenza & RSV (PCR) - Final ABG Data ABG results: ABG 03/10/24 03/10/24 03/11/24 22:38 23:51 03:18 Specimen Type ART ART ART Sample Site L Radial R Radial L Radial pH 7.22 L 7.23 L 7.27 L Bicarbonate Actual 37.0 H 34.6 H 36.6 H Total CO2 40 37 39 Base Excess 9 H 7 H 10 H O2 Saturation 80 L 89 L 92 L O2 % 40.0 40.0 50.0 ABG pCO2 90.2 H* 82.1 H* 79.9 H* ABG pO2 56 L 70 L 76 Catarino Test Positive Positive Positive Respiration Rate 12 O2 Delivery Device BiPAP BiPAP BiPAP Vent Mode Not entered Not entered Not entered Crit Call To/Read Back Yes Yes Yes Blood Gas Notified Whom dr. gennaro burdick dr. white Blood Gas Notified Time 22:40:36 23:52:52 03:19:37 Radiography Diagnostic Testing: Radiology Impression Chest X-Ray 03/10/24 22:09 IMPRESSION: No acute disease Electronically Signed: Kunal Zuleta MD at 23:06 EST , Physical Exam Const Constitutional Narrative: on BiPAP. does not respond to verbal stimuli. keeps eyes clenched and I was unable to open them. HEENT head/scalp atraumatic and moist oral mucous membranes Resp normal respiratory effort and no retractions Cardio regular rate, regular rhythm and S1 normal heart sound Extremity Extremity Narrative: bilateral LE edema. Neuro Sensorium / Orientation: awake and alert Assessment & Plan Assessment/Plan (1) Acute on chronic respiratory failure with hypoxia and hypercapnia: PLAN: Plan Acute Hypoxic and Hypercapnic Respiratory Failure * CXR shows pulmonary vascular congestion. Likely component of CHF + COPD + MARYLU * Despite BiPAP, pCO2 increased and patient was subsequently intubated. * CCM consult Acute HFpEF * on IV furosemide * EF 60% from 12/15/2023 * no ACEi/ARB given CKD/EITAN * Continue carvedilol and isosorbide. Patient has reported adverse/adverse reaction to hydralazine * spinolactone on hold. EITAN v CKD * creatinine 1.98, had been 1.56. * monitor closely while on furosemide Chronic conditoins: * DM2: takes levemir 50 in AM and 45 in PM. Since on BiPAP, and NPO, will add low dose basal insulin. Continue SSI. * Hypertension: Continue home regimen including spironolactone, isosorbide, Coreg, IV Lasix as noted, PRN hydralazine. * Hyperlipidemia: Per current list is not on statin therapy, noted statin intolerance, FLP * Obesity: unclear class. BMI of 25.3 not accurate. VTE prophylaxis: LMWH. Charges/Coding Visit Charges Inpatient E&M: 98271 Subs Hosp L2
[2024-03-11] MEDS: Ipratropium/Albuterol Sulfate 3 ML AMPUL.NEB INHALATION ×4 (07:10→19:23)
[2024-03-11 08:43] LABS: ALB/GLOB Ratio 0.5 RATIO (0.9-2.4); AST(SGOT) 11 U/L (15-37); Alanine Aminotransfer ALT/SGPT 20 U/L (16-61); Albumin, Serum 2.8 g/dL (3.2-5.0); Alkaline Phosphatase 98 U/L (45-117); Anion Gap 3 (5-15); BUN 32 mg/dL (7-18); BUN/Creat Ratio 16.1 RATIO (10-20); Calcium,Total 8.8 mg/dL (8.5-10.1); Chloride 96 mmol/L (98-107); Creatinine, Serum 1.99 mg/dL (0.70-1.30); EST Glomerular Filtration Rate 37 mL/min (>60); Est Glom Filt Rate - Afr Amer 44 mL/min (>60); Estimated Creatinine Clearance 32.17 ml/min; Globulin 5.3 g/dL (2.2-4.2); Glucose 281 mg/dL (74-106); Potassium 6.3 mmol/L (3.5-5.1); Protein, Total 8.1 g/dL (6.4-8.2); Sodium Level 132 mmol/L (136-145); Troponin-I HS 16 pg/mL (3.0-78.0)
[2024-03-11 08:51] LABS: Allen Test Positive; Base Excess 7 mmol/L (-2 to +2); Bicarbonate 35.1 mmol/L (22-26); Blood Gas Specimen Type ART; Mode Not entered; O2 Delivery Device BiPAP; PEEP 15; PO2 78 mmHG (75-100); SITE L Radial; SO2 91 % (95-99); Total Carbon Dioxide 38 mmol/L; pCO2 89.5 mmHg (35-45)
[2024-03-11] MEDS: Etomidate 20 MG/10 ML Vial IV (09:06)
[2024-03-11] MEDS: Midazolam 2 MG/2 ML Syringe IV (09:07)
[2024-03-11] MEDS: fentaNYL drip 100 ML 5 MCG CONT INF (09:10)
[2024-03-11] MEDS: Propofol 10MG/Ml 1,000 MG/100 ML Bottle 3.9 MG CONT INF (09:10)
--- NOTE | 2024-03-11 09:19 | EX.PCM.CONCC ---
Assessment & Plan Assessment/Plan (1) Acute on chronic respiratory failure with hypoxia and hypercapnia: PLAN: Plan RECOMMENDATIONS: 1. Maintain assist-control mode mechanical ventilation. Obtain follow-up ABG in 1 hour. 2. Obtain and send sputum for culture. 3. Check respiratory viral panel. 4. Hold Lasix for now. 5. Continue scheduled bronchodilators. 6. Propofol and fentanyl for sedation. 7. Obtain CTA chest. 8. Initiate appropriate ICU prophylaxis. IMPRESSIONS: 1. Acute on chronic combined respiratory failure The patient has a known history of COPD and obstructive sleep apnea, for which he is noncompliant with nocturnal PAP therapy. He has been lost to outpatient pulmonary follow-up since 2020. The patient presented with worsening shortness of breath and hypoxemia of unclear etiology. He was initially placed on noninvasive positive pressure ventilatory support, but failed to improve clinically, ultimately necessitating intubation. His chest imaging did not demonstrate any acute cardiopulmonary process. In light of his clinical decompensation, will obtain CTA chest to rule out pulmonary embolism. In the interim, will obtain and send sputum for culture. Respiratory viral panel will be checked. The patient will be continued on scheduled bronchodilators. Wean FiO2 and PEEP to maintain saturations at or above 90%. 2. Encephalopathy Most likely secondary to presenting hypercarbia, which failed to respond appropriately to noninvasive positive pressure ventilatory support. Will plan to obtain follow-up ABG approximately 1 hour postintubation. 3. Acute on chronic kidney disease Possible progression of underlying medical renal disease. His last creatinine was last noted to be 1.25 in 2020. For now, we will hold off on aggressive diuresis. Renal ultrasound will be obtained. 4. History of hypertension/hyperlipidemia/diabetes mellitus/GERD/super morbid obesity Complicates care, management, recovery and prognosis. Continue home medications as indicated. Will plan to initiate tube feeding beginning tomorrow. Otherwise, continue sliding scale insulin coverage. TIME: 42 minutes of critical care time, independent of procedures, was spent addressing the patient's acute on chronic combined respiratory failure, encephalopathy, acute on chronic kidney disease, review of all data and collaboration with the care team. HPI Consult Data Date of Consult: 03/11/24 HPI Narrative Reason for Consultation: Acute on chronic respiratory failure HPI Narrative: The patient is a 58-year-old male, with a history as outlined below, who presented to the emergency department on March 10 with shortness of breath and worsening hypoxemia. The patient was last admitted to the hospital for several days in November 2023 with hypoxemia related to acute on chronic heart failure with preserved ejection fraction. The patient was seen by Dr. Anderson in the pulmonary medicine clinic in June 2020 due to a history of COPD, chronic hypoxemic respiratory failure and obstructive sleep apnea with PAP noncompliance. Pulmonary function studies completed in June 2019 demonstrated a partially reversible moderate large airways obstructive ventilatory impairment. The patient has been lost to follow-up in the pulmonary medicine clinic since 2020. On presentation to the emergency department, the patient was documented to be afebrile, but was hypertensive with a blood pressure of 178/85. Laboratory evaluation revealed a normal white blood cell count. Hemoglobin and platelet count are within normal limits. Chemistry profile was notable for a sodium of 133, chloride of 94, bicarbonate of 38, BUN of 28 and creatinine of 1.98. Lactate was within normal limits. BNP and procalcitonin are pending. The patient was placed on BiPAP therapy after his initial ABG demonstrated a pH of 7.2 with a pCO2 of 90 and pO2 of 56. Chest x-ray demonstrated no acute cardiopulmonary process. COVID, influenza and RSV PCR's were negative. The patient was placed on bronchodilators and scheduled Lasix. He was subsequently admitted to the medical intensive care unit for further management. Overnight, the patient was maintained on BiPAP therapy and was eventually given a trial of AVAPS therapy due to inadequate tidal volumes on BiPAP. Despite the aforementioned use of PAP therapy, the patient remained acidotic. Upon my evaluation of the patient this morning, he was nonresponsive. Repeat ABG was again obtained which demonstrated a largely unchanged acid-base status with a pH of 7.2, pCO2 of 90 and pO2 of 78. In light of the aforementioned, the decision was made to intubate the patient in order to provide adequate ventilatory support. Intubation Indication: Respiratory failure Consent was obtained from: Done emergently The patient was placed in the appropriate sniffing position. Preoxygenated sedation via BiPAP was provided for a minimum of 3 minutes. The patient had continuous cardiac as well as pulse oximetry monitoring during the procedure. Procedure sedation was provided by the administration of 2 mg of Versed and 20 mg of etomidate. Direct laryngoscopy was then performed using a number 4 MAC blade, which revealed a grade 1 view. A 8.0 mm endotracheal tube was visualized advancing between the cords to the level of 24 cm at the lip. The stylette was then removed and discarded. Tube placement was confirmed by fogging in the tube along with equal and bilateral breath sounds. Colorimetric change was visualized on the CO2 meter. The cuff was then inflated and the tube secured using a commercially available device. A good pulse oximetry waveform was seen on the monitor throughout the procedure. A portable chest x-ray has been ordered to confirm appropriate placement. The patient tolerated the procedure well. [facility] Medical History Morbid obesity CKD (chronic kidney disease), stage III MARYLU (obstructive sleep apnea) HLD (hyperlipidemia) Insulin dependent diabetes mellitus Chronic respiratory failure with hypoxia and hypercapnia (HFpEF) heart failure with preserved ejection fraction Non-smoker Asthma HTN (hypertension) COPD (chronic obstructive pulmonary disease) Non-compliance Lymphedema Ulcer of left lower extremity with fat layer exposed Ulcer of right lower extremity with fat layer exposed Home Medications ?Medication ?Instructions ?Recorded ?Last Taken ?Type bumetanide 1 mg tablet 1 mg PO QHS high blood pressure 06/01/19 12/13/23 History fluid retention hydrocortisone 1 % topical ointment 1 applic topical TID excoriated 06/01/19 12/13/23 History areas omeprazole magnesium 20 mg 20 mg PO DAILY stomach 06/01/19 12/13/23 History tablet,delayed release portable nebulizer #1 ea 12/31/20 Unknown Rx ipratropium 0.5 mg-albuterol 3 mg 3 ml inhalation Q4H PRN shortness 01/06/21 12/13/23 Rx (2.5 mg base)/3 mL nebulization of breath or wheezing #180 mL soln liraglutide 0.6 mg/0.1 mL (18 mg/3 1.8 mg subcut DAILY diabetes 06/29/21 12/13/23 History mL) subcutaneous pen injector ([employer] 3-Benja) carvedilol 25 mg tablet 25 mg PO BID heart 12/14/23 12/13/23 History cetirizine 10 mg tablet (24Hour 10 mg PO DAILY PRN allergy symptoms 12/14/23 12/14/23 History Allergy) gentamicin 0.1 % topical ointment 1 applic topical DAILY PRN skin 12/14/23 12/13/23 History irritation hydrocortisone 2.5 % topical cream 1 applic topical DAILY PRN skin 12/14/23 12/13/23 History irritation insulin aspart U-100 100 unit/mL 40 unit subcut 4X/DAY diabetes 12/14/23 Unknown History (3 mL) subcutaneous pen (Novolog FlexPen U-100 Insulin aspart) insulin detemir U-100 100 unit/mL 45 unit subcut QHS diabetes 12/14/23 12/13/23 History (3 mL) subcutaneous pen (Levemir FlexPen) insulin detemir U-100 100 unit/mL 50 unit subcut DAILY diabetes 12/14/23 12/13/23 History (3 mL) subcutaneous pen (Levemir FlexPen) spironolactone 25 mg tablet 25 mg PO DAILY water pill 12/14/23 12/13/23 History isosorbide mononitrate 30 mg 30 mg PO DAILY #30 tabs 12/17/23 Unknown Rx tablet,extended release 24 hr bumetanide 1 mg tablet 2 mg PO .am htn fluid retention 03/11/24 Unknown History Allergy/AdvReac Type Severity Reaction Status Date / Time amlodipine (From Norvasc) Allergy Other Verified 03/10/24 21:59 apraclonidine Allergy Other Verified 03/10/24 21:59 diltiazem Allergy Unknown Verified 03/10/24 21:59 doxycycline Allergy Other Verified 03/10/24 21:59 enalapril Allergy Other Verified 03/10/24 21:59 glimepiride Allergy Other Verified 03/10/24 21:59 glipizide (From Glucotrol) Allergy Other Verified 03/10/24 21:59 hydralazine Allergy Other Verified 03/10/24 21:59 ibuprofen Allergy Other Verified 03/10/24 21:59 Influenza Virus Vaccines Allergy Unknown Verified 03/10/24 21:59 latex Allergy Other Verified 03/10/24 21:59 lisinopril Allergy Other Verified 03/10/24 21:59 metoprolol Allergy Other Verified 03/10/24 21:59 montelukast Allergy Other Verified 03/10/24 21:59 Penicillins Allergy Other Verified 03/10/24 21:59 pravastatin Allergy Other Verified 03/10/24 21:59 prednisone Allergy Other Verified 03/10/24 21:59 propranolol Allergy Unknown Verified 03/10/24 21:59 simvastatin (From Zocor) Allergy Other Verified 03/10/24 21:59 sulfamethoxazole (From Allergy Other Verified 03/10/24 21:59 Bactrim) trimethoprim (From Bactrim) Allergy Other Verified 03/10/24 21:59 Family History Father Diabetes Hyperlipemia Heart disease Mother CHF (congestive heart failure) Heart disease CVA (cerebral vascular accident) Surgical History Hx of LASIK Social History housing: house current occupational status: unemployed and disabled Smoking Status: Never smoker alcohol intake: never substance use type: does not use ROS Review of Systems ROS Unobtainable: due to endotracheal tube and due to mental status Physical Exam Const Constitutional Narrative: Super morbidly obese with BiPAP mask in place. General Appearance: lethargic and ill appearing HEENT normocephalic and head/scalp atraumatic Eyes EOMs intact bilaterally and conjunctivae normal Neck supple General: trachea midline Chest inspection of chest normal Resp normal respiratory effort Resp Narrative: Globally diminished air movement with suboptimal tidal volumes on PAP therapy. Cardio regular rate and regular rhythm GI normal to inspection, nondistended, normoactive bowel sounds Extremity Extremity Narrative: Wrapped lower extremities. General Extremity: Negative for clubbing Skin General Skin Exam: venous stasis and dermatitis Neuro Neuro Narrative: The patient is currently nonresponsive to verbal or tactile stimulation. Lab / Micro Data 03/11/24 03:55 03/11/24 07:47 Labs: Laboratory Results - last 24 hr 03/10/24 22:15: WBC 7.4, RBC 5.13, Hgb 13.8, Hct 45.8, MCV 89.3, MCH 26.9 L, MCHC 30.1 L, RDW Std Deviation 47.7 H, RDW Coeff of Jung 14.5, Plt Count 171, MPV 9.9, Immature Gran % (Auto) 1.200 H, Neut % (Auto) 75.4 H, Lymph % (Auto) 12.3 L, Petroleum % (Auto) 8.7, Eos % (Auto) 2.0, Baso % (Auto) 0.4, Absolute Neuts (auto) 5.6, Absolute Lymphs (auto) 0.91, Nucleated RBC % 0, Sodium 133 L, Potassium 5.1, Chloride 94 L, Carbon Dioxide 38.0 H, Anion Gap 1 L, BUN 28 H, Creatinine 1.98 H, Estim Creat Clear Calc 52.49, Est GFR (MDRD) Af Amer 45 L, Est GFR (MDRD) Non-Af 37 L, BUN/Creatinine Ratio 14.1, Glucose 390 H, Lactic Acid 1.7, Calcium 9.1, Magnesium 2.4 03/11/24 01:25: Magnesium 2.4, Troponin I High Sens 13 03/11/24 03:55: WBC 8.0, RBC 4.91, Hgb 13.3, Hct 44.0, MCV 89.6, MCH 27.1, MCHC 30.2 L, RDW Std Deviation 47.8 H, RDW Coeff of Jung 14.6, Plt Count 173, MPV 9.7, Immature Gran % (Auto) 0.400, Neut % (Auto) 80.0 H, Lymph % (Auto) 8.5 L, Petroleum % (Auto) 9.9, Eos % (Auto) 0.8, Baso % (Auto) 0.4, Absolute Neuts (auto) 6.4, Absolute Lymphs (auto) 0.68 L, Nucleated RBC % 0, Troponin I High Sens 16, Triglycerides 209 H, Cholesterol 212 H, LDL Cholesterol 133 H, VLDL Cholesterol 42 H, HDL Cholesterol 37 L 03/11/24 06:35: POC Glucose 235 H 03/11/24 07:47: Sodium 132 L, Potassium 6.3 H*, Chloride 96 L, Carbon Dioxide 34.0 H, Anion Gap 3 L, BUN 32 H, Creatinine 1.99 H, Estim Creat Clear Calc 32.17, Est GFR (MDRD) Af Amer 44 L, Est GFR (MDRD) Non-Af 37 L, BUN/Creatinine Ratio 16.1, Glucose 281 H, Calcium 8.8, Total Bilirubin 0.40, AST 11 L, ALT 20, Alkaline Phosphatase 98, Troponin I High Sens 16, Total Protein 8.1, Albumin 2.8 L, Globulin 5.3 H, Albumin/Globulin Ratio 0.5 L, TSH 1.230 Micro: Microbiology 03/10/24 22:25 Mucosa - Nose SARS-CoV-2, Influenza & RSV (PCR) - Final ABG Data ABG results: ABG 03/10/24 03/10/24 03/11/24 22:38 23:51 03:18 Specimen Type ART ART ART Sample Site L Radial R Radial L Radial pH 7.22 L 7.23 L 7.27 L Bicarbonate Actual 37.0 H 34.6 H 36.6 H Total CO2 40 37 39 Base Excess 9 H 7 H 10 H O2 Saturation 80 L 89 L 92 L O2 % 40.0 40.0 50.0 ABG pCO2 90.2 H* 82.1 H* 79.9 H* ABG pO2 56 L 70 L 76 Catarino Test Positive Positive Positive Respiration Rate 12 O2 Delivery Device BiPAP BiPAP BiPAP Vent Mode Not entered Not entered Not entered POC PEEP Crit Call To/Read Back Yes Yes Yes Blood Gas Notified Whom dr. gennaro burdick dr. white Blood Gas Notified Time 22:40:36 23:52:52 03:19:37 03/11/24 08:48 Specimen Type ART Sample Site L Radial pH 7.20 L Bicarbonate Actual 35.1 H Total CO2 38 Base Excess 7 H O2 Saturation 91 L O2 % 60.0 ABG pCO2 89.5 H* ABG pO2 78 Catarino Test Positive Respiration Rate O2 Delivery Device BiPAP Vent Mode Not entered POC PEEP 15 Crit Call To/Read Back Yes Blood Gas Notified Whom brown Blood Gas Notified Time 08:49:52 Imaging Radiology Impression Chest X-Ray 03/10/24 22:09 IMPRESSION: No acute disease Electronically Signed: Kunal Zuleta MD at 23:06 EST , Charges/Coding Procedures Hospitalists Procedures: [id number] Critical Care 1st Hr
--- NOTE | 2024-03-11 09:20 | RAD_ITS ---
STUDY: X-RAY CHEST REASON FOR EXAM: Male, 58 years old. ETT and OG placement TECHNIQUE: Single AP portable view of the chest. COMPARISON: 03/10/2024 FINDINGS: Interval placement of endotracheal tube with the tip approximately 3 cm above the kendy. Interval placement of nasogastric tube with tip below the diaphragm. The lungs are clear and expanded. There is no demonstrated pleural abnormality. Normal size heart. Normal mediastinum and elma. Normal visualized pulmonary arteries. Normal visualized aortic arch and descending thoracic aorta. Normal visualized thoracic spine. Normal visualized ribs, clavicles, and shoulders. There is no demonstrated abnormality of the visualized soft tissue structures of the upper abdomen. RAD/CXR for Line Placement IMPRESSION: Interval placement of endotracheal tube with the tip above the kedny. Interval placement of nasogastric tube with tip below the diaphragm. No active disease. Electronically Signed: Joshua Sosa MD at 10:03 [facility] ,
--- NOTE | 2024-03-11 09:20 | RAD_ITS ---
STUDY: X-RAY - ABDOMEN/PELVIS REASON FOR EXAM: Male, 58 years old. OG PLACEMENT TECHNIQUE: Single AP view of the abdomen / pelvis. COMPARISON: None. FINDINGS: Nasogastric tube with tip in the midline likely in the body the stomach. There is an unremarkable bowel gas pattern. The visualized liver, spleen and kidneys are grossly normal in size and morphology. Normal soft tissue structures. Normal visualized osseous structures. RAD/Abdomen Single View IMPRESSION: Nasogastric tube with the tip in the midline likely in the body of the stomach. No bowel obstruction. Electronically Signed: Joshua Sosa MD at 10:02 [facility] [place] ,
--- NOTE | 2024-03-11 09:38 | NURSING ---
Brother was called and was updated by . This nurse called for med list will call pharmacy
[2024-03-11 10:00] LABS: CPK Total, Creatine Kinase 60 U/L (39-308); Triglycerides 175 mg/dL
--- NOTE | 2024-03-11 10:04 | PCM.OP.PRO2 ---
Procedures Hospitalists Procedures: [id number] Insertion Catheter Artery Non-invasive Procedural Procedure Information Description of procedure: Arterial Line Indication: Hypotension Consent was obtained from: Done emergently A time-out was completed verifying correct patient, procedure, site, positioning, and special equipment if applicable. Catarino's test was performed to ensure adequate perfusion. The patient's right wrist was prepped and draped in the sterile fashion. An 18-gauge arrow arterial line was introduced into the radial artery. The catheter was threaded over the guidewire and the needle was removed with the appropriate pulsatile blood return. The catheter was then sutured in place to the skin and a sterile dressing applied. Perfusion to the extremity distal to the point of catheter insertion was checked and found to be adequate. ULTRASOUND GUIDANCE STATEMENT (Vascular Access): I perform ultrasound image acquisition and interpretation for needle placement during this procedure. The vessel was identified and found to be free of thrombosis by compression technique. A safe point of entry was marked at the skin and then angle for access was determined. The needle was guided by obtaining free-flowing fluid and by real-time visualization.
--- NOTE | 2024-03-11 10:18 | CASEMGMT ---
RN CM Assessment ? The patient is currently on the mechanical ventilator and cannot answer this living manager's questions for assessment. Telephone call to the patient next to Gerry on file, Chuck Thomas (Brother). Chuck states that he is willing to help answer this living manager's questions for assessment. Updated the patient's Brother that the pt is now on the mechanical ventilator. The patient brother states that he will be in the hospital to visit him this afternoon. Care providers, pharmacy, and demographics verified. ? Admitting dx: ?acute on chronic respiratory failure, CHF exacerbation LACE Strata: ?3 PCP: ?Armin Chau Specialists: ?Chuck states that the patient sees a federal java developer and a adjuster and inspector but is unsure of the names Preferred Pharmacy: ?[facility] Insurance: ?[facility] DUAL COMPLETE, K[place]/[employer] Prescription Benefit: ?Yes LNOK: ?Chuck Thomas (Brother) Living Arrangements: ?patient lives alone in a mobile home with five steps to enter. Chuck states that he lives right next door ADLs/IADLs:?Chuck states that the patient requires some assistance and that this help is provided by the homebirth midwife through [facility] [facility] every Monday and Monday. Patient brother is also a caregiver. Chuck states that the aide helps with bathing and wrapping his legs. Transportation: ?patient does not drive. Chuck states that the patient utilizes his insurance for transportation. DME: ?home oxygen through [employer]. [employer] states that the patient?s current order states 3 L continuously. [employer] states if they do not supply a CPAP. Chuck states that the patient does have a CPAP at home as well as portable tanks, an oxygen concentrator, and a pulse oximeter. Chuck also states the patient has a functioning blood glucose monitor with sufficient supplies. Nebulizer. Grab bars. Community resources: patient is active with [employer] [facility] and has a manager case management (Amy Zhao @ [phone]). [facility] states that the patient is only active with homebirth midwife services for two hours per day Monday. Wound: Chuck states that the patient is unable to care for his legs per himself due to not being able to bend down to his legs. Chuck states that the homebirth midwife assists with this HHC/SNF: ?Chuck says that the patient has had home healthcare before but it was a long time ago and does not recall the agency. Chuck states that their father has been to [facility] in the past but the patient has not had SNF history Plan: ?TBD. Patient was intubated this morning. 6-click score currently is 12. Therapy is ordered and evaluation is pending for whenever patient is medically stable enough for this. Anticipate home healthcare versus custodial facility. Case management to follow for additional oxygen needs. Patient brother denies any further questions or concerns at this time. Care management to follow. Abdifatah Urban RN CM
[2024-03-11 10:37] LABS: Base Excess 5 mmol/L (-2 to +2); Bicarbonate 30.7 mmol/L (22-26); Blood Gas Specimen Type ART; Mode AC; O2 Delivery Device Adult Vent; PEEP 5; PO2 86 mmHG (75-100); RR 15; SITE Art Line; SO2 96 % (95-99); Total Carbon Dioxide 32 mmol/L; pCO2 55.7 mmHg (35-45); pH 7.35 (7.35-7.45)
--- NOTE | 2024-03-11 11:12 | WOUNDNOTE ---
Was asked to assess bilateral lower legs. removed the dressings and TRINITY wraps. no drainage noted. there are no open areas noted. the skin appears slightly white/pale pink in color in areas. almost appears like the skin has been staying too wet. legs did not feel wet at this time. washed legs and feet with soap and water. pat dry. applied kerlix and TRINITY wraps. pt tolerated well. see skin photos.
--- NOTE | 2024-03-11 11:23 | WOUNDNOTE ---
skin photo: left lower leg
--- NOTE | 2024-03-11 11:24 | WOUNDNOTE ---
skin photo: right lower leg
--- NOTE | 2024-03-11 11:39 | US_ITS ---
STUDY: RENAL ULTRASOUND - COMPLETE REASON FOR EXAM: Male, 58 years old. EITAN TECHNIQUE: Ultrasound evaluation of the kidneys was performed with real-time and static centeno-scale imaging. COMPARISON: None. FINDINGS: RIGHT KIDNEY: Normal location of the right kidney, which is normal in size. The right kidney measures 11.7 cm. There is a normal cortex of the right kidney. The renal cortex measures 1.9 cm. There is no right renal mass or cyst. There are no right renal calculi. There is no right hydronephrosis. DISTAL RIGHT URETER: There is non-visualization of the distal right ureter. There is no demonstrated right ureterovesical junction calculus. There is a visualized right ureteral jet. LEFT KIDNEY: Normal location of the left kidney, which is normal in size. The left kidney measures 11.6 cm. There is a normal cortex of the left kidney. The renal cortex measures 1.4 cm. There is no left renal mass or cyst. There are no left renal calculi. There is no left hydronephrosis. DISTAL LEFT URETER: There is non-visualization of the distal left ureter. There is no demonstrated left ureterovesical junction calculus. There is a visualized left ureteral jet. BLADDER: Nondistended with a Menjivar catheter. US/Kidney and Bladder IMPRESSION: No hydronephrosis to suggest obstruction. Electronically Signed: Joshua Sosa MD at 13:28 EST ,
--- NOTE | 2024-03-11 11:48 | CT_ITS ---
STUDY: CTA CHEST REASON FOR EXAM: Male, 58 years old. Respiratory Failure RADIATION DOSAGE (If Supplied By Facility): CTDIvol = ( 15.04 ) mGy, DLP = ( 509.67 ) mGycm TECHNIQUE: The examination was performed with the intravenous administration of IV 100mL [id number]-370. Post-processing of the angiographic images was performed, with multiplanar reformation and 3D reconstruction. Individualized dose optimization techniques were used for this CT. COMPARISON: Chest x-ray earlier today FINDINGS: Endotracheal tube with the tip above the kendy. Nasogastric tube with the tip in the body the stomach. Normal enhancement of the main pulmonary artery and right and left pulmonary arteries. Normal enhancement of the bilateral peripheral pulmonary arteries. There is no demonstrated pulmonary embolism. Normal thoracic aorta and visualized great vessels. There is no demonstrated aortic dissection. Normal heart and pericardium. Normal mediastinum. Normal hilar regions. Normal visualized trachea and bronchi. The lungs are well expanded. Normal pulmonary parenchyma. Normal pleura. Normal chest wall structures. Mild levoscoliosis of the thoracic spine with degenerative disc disease. Normal visualized upper abdomen. CT/CTA Chest W/WO Contrast IMPRESSION: Normal CTA chest examination, without a demonstrated pulmonary embolism or arterial dissection. Electronically Signed: Joshua Sosa MD at 12:16 EST ,
--- NOTE | 2024-03-11 12:04 | CHAPLAIN ---
Type of Pastoral Visit _x__ Initial Visit ___ Follow-up Visit ___ On-call Visit ___ General Patient Visit ___ Spiritual Assessment ___ Family Conference ___ Bereavement ___ Rapid Response ___ Code Blue ___ Other (describe below) Pastoral Care Referral From ___ Patient _x__ Family ___ Nurse ___ Physician ___ Director Of Epidemiology ___ Ground Defence Officer ___ Other (describe below) Sacrament/Intervention _x__ Active listening ___ Anointing ___ Gnosticism ___ Bereavement ___ Communion ___ Viry exploration ___ ___ Life review _x__ Prayer ___ Reconciliation ___ Sacrament of Sick _x__ Supportive presence ___ Wedding ___ Other (describe below) Pastoral Comments patient is on the vent and unresponsive; left a calling card at first attempt to visit; discovered that the brother of the patient was in the room later and thus made the second visit; talked with the brother about the situation, how he is coping with it all, and offered presence and prayer which were accepted; will continue to follow this situation and give spiritual care support
[2024-03-11] MEDS: Sodium Polystyrene Sulfonate 15 GM/60 ML UDC 30 GM PO (13:02)
[2024-03-11] MEDS: Enoxaparin 40 MG/0.4 ML Syringe SC ×2 (13:03→21:18)
[2024-03-11] MEDS: Insulin Glargine-YFGN 100 UNIT/ML Pen 20 UNIT SC (13:14)
[2024-03-11 14:36] LABS: Procalcitonin 0.14 ng/mL (0.00-0.09)
[2024-03-11 17:03] LABS: Bedside Glucose 329 mg/dL (74-106)
[2024-03-11 17:25] LABS: BNP,B-Type NATRIURETIC PEPTIDE 53.5 pg/mL (0-100)
[2024-03-11] MEDS: Pantoprazole Sodium 40 MG in 0.9% Normal Saline (100mL MB+) 100 ML 330 MG IV (18:17)
[2024-03-11] MEDS: fentaNYL drip 100 ML 12.5 MCG CONT INF (18:23)
[2024-03-11 22:10] LABS: Bedside Glucose 333 mg/dL (74-106)
[2024-03-11] MEDS: TITRATION PARAMETER CHANGE 1 EACH IV (23:39)
[2024-03-11] MEDS: Propofol 10MG/Ml 1,000 MG/100 ML Bottle 1.9 MG CONT INF (23:39)
[2024-03-11 23:48] LABS: Bedside Glucose 366 mg/dL (74-106)
[2024-03-12] VITALS (37 sets, daily range): BP systolic 119–183; BP diastolic 55–80; PULSE 69–90; RESP 15–25; TEMP 36.1–37; O2SAT 90–94; BMI 55.7
[2024-03-12] MEDS: fentaNYL drip 100 ML 12.5 MCG CONT INF ×3 (02:04→18:59)
[2024-03-12] MEDS: Insulin Lispro 100 UNIT/ML INSULN.PEN SC ×4 (05:30→23:30)
[2024-03-12] MEDS: 0.9% Saline Lock 10 ML Syringe IV ×3 (05:30→11:37)
[2024-03-12 06:06] LABS: Bedside Glucose 386 mg/dL (74-106)
--- NOTE | 2024-03-12 06:08 | PCM.PN.INT ---
Assessment & Plan Assessment/Plan (1) Acute on chronic respiratory failure with hypoxia and hypercapnia: PLAN: Plan RECOMMENDATIONS: 1. Continue assist-control mode mechanical ventilation. Wean FiO2 and PEEP as tolerated. 2. Start gentle IV fluid hydration. 3. Continue scheduled bronchodilators. 4. Start IV steroids today. 5. Start empiric antibiotics to cover for Staphylococcus isolated on sputum culture. 6. Increase insulin glargine. 7. Continue appropriate ICU prophylaxis. 8. Okay to initiate tube feeding today from my perspective. IMPRESSIONS: 1. Acute on chronic combined respiratory failure The patient has a known history of COPD and obstructive sleep apnea, for which he is noncompliant with nocturnal PAP therapy. He has been lost to outpatient pulmonary follow-up since 2020. The patient presented with worsening shortness of breath and hypoxemia, likely secondary to an exacerbation of his COPD precipitated by parainfluenza and questionable staphylococcal tracheobronchitis. He was initially placed on noninvasive positive pressure ventilatory support, but failed to improve clinically, ultimately necessitating intubation. CTA chest ruled out pulmonary embolism. There was no definitive evidence of pneumonia. For now, the patient will be continued on scheduled bronchodilators and IV steroids. He will be placed on antimicrobials to address the staphylococcal that is currently demonstrating growth in his sputum culture. In the interim, continue to wean FiO2 and PEEP to maintain saturations at or above 90%. 2. Encephalopathy Improved. Most likely secondary to presenting hypercarbia, which failed to respond appropriately to noninvasive positive pressure ventilatory support. Mental status has improved with invasive mechanical ventilatory support. Continue propofol and fentanyl for sedation. 3. Acute on chronic kidney disease Possible progression of underlying medical renal disease versus contrast-induced nephropathy. Renal ultrasound was unremarkable. Therefore, we will plan to administer gentle IV fluid hydration over the course of today. Continue to monitor urine output. No current indication for renal replacement therapy. 4. History of hypertension/hyperlipidemia/diabetes mellitus/GERD/super morbid obesity Complicates care, management, recovery and prognosis. Continue home medications as indicated. Okay to initiate tube feeding today from my perspective. Continue basal and sliding scale insulin coverage. TIME: 37 minutes of critical care time, independent of procedures, was spent addressing the patient's acute on chronic combined respiratory failure, encephalopathy, acute on chronic kidney disease, review of all data and collaboration with the care team. Subjective Subjective The patient was seen and examined at the bedside this morning. Events from the last 24 hours have been reviewed. The patient is currently afebrile, hemodynamically stable and maintaining appropriate oxygen saturations on assist-control mode of mechanical ventilation with an FiO2 requirement of 45% and PEEP of 5. The patient remains sedated on propofol and fentanyl. The patient has been hyperglycemic. Therefore, his glargine dose was increased this morning. White blood cell count is normal. Repeat ABG demonstrated a pH of 7.37 with a pCO2 of 47 and pO2 of 71. BUN and creatinine have increased to 50 and 3.43, respectively. Objective Data Objective Data The patient's most recent lab work, culture data and imaging studies have all been personally reviewed. Respiratory viral panel was positive for parainfluenza. Preliminary sputum culture is demonstrating growth of Staph aureus. Vital Signs: Vital Signs Temp Pulse Resp BP Pulse Ox O2 Del Method O2 Flow Rate 98 F 78 18 145/63 H 93 Mechanical Ventilator 15 03/12/24 04:00 03/12/24 06:00 03/12/24 06:00 03/12/24 06:00 03/12/24 06:00 03/12/24 06:00 03/10/24 21:58 FiO2 45 03/12/24 06:00 Oxygen Flow Rate (L/min) 15 Oxygen Delivery Method Mechanical Ventilator Weight: 314 lb 13.121 oz Body Mass Index (BMI) 55.7 Intake & Output: Intake and Output for Last 24 Hours 03/10/24 03/11/24 03/12/24 23:59 23:59 23:59 Intake Total 444.37 / 507.54 197.17 / 197.17 Output Total 950 / 950 125 / 125 Balance -505.63 / -442.46 72.17 / 72.17 Lab / Micro Data Attestation: I reviewed the patient's lab results. 03/12/24 05:15 03/12/24 05:15 Labs: Laboratory Results - last 24 hr 03/10/24 22:15: B-Natriuretic Peptide 53.5, Procalcitonin 0.14 H 03/11/24 03:55: Total Creatine Kinase 60, Triglycerides 175 03/11/24 06:35: POC Glucose 235 H 03/11/24 07:47: Sodium 132 L, Potassium 6.3 H*, Chloride 96 L, Carbon Dioxide 34.0 H, Anion Gap 3 L, BUN 32 H, Creatinine 1.99 H, Estim Creat Clear Calc 32.17, Est GFR (MDRD) Af Amer 44 L, Est GFR (MDRD) Non-Af 37 L, BUN/Creatinine Ratio 16.1, Glucose 281 H, Calcium 8.8, Total Bilirubin 0.40, AST 11 L, ALT 20, Alkaline Phosphatase 98, Troponin I High Sens 16, Total Protein 8.1, Albumin 2.8 L, Globulin 5.3 H, Albumin/Globulin Ratio 0.5 L, TSH 1.230 03/11/24 13:13: POC Glucose 329 H 03/11/24 17:58: POC Glucose 333 H 03/11/24 23:12: POC Glucose 366 H 03/12/24 05:29: POC Glucose 386 H Micro: Microbiology 03/11/24 09:25 Sputum, Induced/Lukens Gram Stain - Final 03/11/24 09:25 Mucosa - Nasopharyngeal Respiratory Panel (PCR) - Final Parainfluenza 4 03/10/24 22:25 Mucosa - Nose SARS-CoV-2, Influenza & RSV (PCR) - Final ABG Data ABG results: ABG 03/11/24 03/11/24 08:48 10:34 Specimen Type ART ART Sample Site L Radial Art Line pH 7.20 L 7.35 Bicarbonate Actual 35.1 H 30.7 H Total CO2 38 32 Base Excess 7 H 5 H O2 Saturation 91 L 96 O2 % 60.0 50.0 ABG pCO2 89.5 H* 55.7 H ABG pO2 78 86 Catarino Test Positive Respiration Rate 15 O2 Delivery Device BiPAP Adult Vent Vent Mode Not entered AC Tidal Volume 550.0 POC PEEP 15 5 Crit Call To/Read Back Yes Blood Gas Notified Whom brown Blood Gas Notified Time 08:49:52 Radiography Diagnostic Testing: Radiology Impression Chest X-Ray 03/11/24 09:20 IMPRESSION: Interval placement of endotracheal tube with the tip above the kendy. Interval placement of nasogastric tube with tip below the diaphragm. No active disease. Electronically Signed: Joshua Sosa MD at 10:03 EST , KUB X-Ray 03/11/24 09:20 IMPRESSION: Nasogastric tube with the tip in the midline likely in the body of the stomach. No bowel obstruction. Electronically Signed: Joshua Sosa MD at 10:02 EST Reading Location ID and State: [id number] / [employer] Tel , Service support , Renal Ultrasound 03/11/24 11:39 IMPRESSION: No hydronephrosis to suggest obstruction. Electronically Signed: Joshua Sosa MD at 13:28 EST Reading Location ID and State: [id number] / [employer] Tel , Service support , Chest CTA 03/11/24 11:48 IMPRESSION: Normal CTA chest examination, without a demonstrated pulmonary embolism or arterial dissection. Electronically Signed: Joshua Sosa MD at 12:16 EST Reading Location ID and State: [id number] / [employer] Tel , Service support , Physical Exam Const Constitutional Narrative: Intubated, sedated and mechanically ventilated. No ventilator dyssynchrony noted. HEENT normocephalic and head/scalp atraumatic Mouth: endotracheal tube in place and OG tube in place Eyes EOMs intact bilaterally and conjunctivae normal Neck supple General: trachea midline Chest inspection of chest normal Resp Auscultation: wheezes and diminished lung sounds Cardio regular rate and regular rhythm GI normal to inspection, nondistended, normoactive bowel sounds Extremity Extremity Narrative: Wrapped lower extremities. General Extremity: Negative for clubbing Skin General Skin Exam: venous stasis and dermatitis Neuro Sensorium / Orientation: sedated on vent Charges/Coding Procedures Hospitalists Procedures: 98004 Critical Care 1st Hr
[2024-03-12] MEDS: Ipratropium/Albuterol Sulfate 3 ML AMPUL.NEB INHALATION ×4 (06:57→19:30)
--- NOTE | 2024-03-12 07:15 | PN.HOSP_ITS ---
Reason for Visit Reason for Visit: Diagnoses Acute and chronic respiratory failure with hypoxia (03/10/24) Acute and chronic respiratory failure with hypercapnia (03/10/24) Subjective Subjective Remains intubated and sedated. Objective Data Objective Data Vital Signs: Vital Signs Temp Pulse Resp BP Pulse Ox O2 Del Method O2 Flow Rate 36.6 C 76 15 147/68 H 92 Mechanical Ventilator 15 03/12/24 04:00 03/12/24 07:00 03/12/24 07:00 03/12/24 07:00 03/12/24 07:00 03/12/24 07:00 03/10/24 21:58 FiO2 45 03/12/24 07:00 Oxygen Flow Rate (L/min) 15 Oxygen Delivery Method Mechanical Ventilator Weight: 142.8 kg Body Mass Index (BMI) 55.7 Intake & Output: Intake and Output for Last 24 Hours 03/10/24 03/11/24 03/12/24 23:59 23:59 23:59 Intake Total 444.37 / 507.54 230.77 / 230.77 Output Total 950 / 950 125 / 125 Balance -505.63 / -442.46 105.77 / 105.77 Lab / Micro Data 03/12/24 05:15 03/12/24 05:15 Labs: Laboratory Results - last 24 hr 03/10/24 22:15: B-Natriuretic Peptide 53.5, Procalcitonin 0.14 H 03/11/24 03:55: Total Creatine Kinase 60, Triglycerides 175 03/11/24 07:47: Sodium 132 L, Potassium 6.3 H*, Chloride 96 L, Carbon Dioxide 34.0 H, Anion Gap 3 L, BUN 32 H, Creatinine 1.99 H, Estim Creat Clear Calc 32.17, Est GFR (MDRD) Af Amer 44 L, Est GFR (MDRD) Non-Af 37 L, BUN/Creatinine Ratio 16.1, Glucose 281 H, Calcium 8.8, Total Bilirubin 0.40, AST 11 L, ALT 20, Alkaline Phosphatase 98, Troponin I High Sens 16, Total Protein 8.1, Albumin 2.8 L, Globulin 5.3 H, Albumin/Globulin Ratio 0.5 L, TSH 1.230 03/11/24 13:13: POC Glucose 329 H 03/11/24 17:58: POC Glucose 333 H 03/11/24 23:12: POC Glucose 366 H 03/12/24 05:29: POC Glucose 386 H Micro: Microbiology 03/11/24 09:25 Sputum, Induced/Lukens Gram Stain - Final 03/11/24 09:25 Mucosa - Nasopharyngeal Respiratory Panel (PCR) - Final Parainfluenza 4 03/10/24 22:25 Mucosa - Nose SARS-CoV-2, Influenza & RSV (PCR) - Final ABG Data ABG results: ABG 03/11/24 03/11/24 08:48 10:34 Specimen Type ART ART Sample Site L Radial Art Line pH 7.20 L 7.35 Bicarbonate Actual 35.1 H 30.7 H Total CO2 38 32 Base Excess 7 H 5 H O2 Saturation 91 L 96 O2 % 60.0 50.0 ABG pCO2 89.5 H* 55.7 H ABG pO2 78 86 Catarino Test Positive Respiration Rate 15 O2 Delivery Device BiPAP Adult Vent Vent Mode Not entered AC Tidal Volume 550.0 POC PEEP 15 5 Crit Call To/Read Back Yes Blood Gas Notified Whom brown Blood Gas Notified Time 08:49:52 Radiography Diagnostic Testing: Radiology Impression Chest X-Ray 03/11/24 09:20 IMPRESSION: Interval placement of endotracheal tube with the tip above the kendy. Interval placement of nasogastric tube with tip below the diaphragm. No active disease. Electronically Signed: Joshua Sosa MD at 10:03 EST Reading Location ID and State: [place] [employer] , Service support , KUB X-Ray 03/11/24 09:20 IMPRESSION: Nasogastric tube with the tip in the midline likely in the body of the stomach. No bowel obstruction. Electronically Signed: Joshua Sosa MD at 10:02 EST Reading Location ID and State: [id number] / [employer] , Service support , Renal Ultrasound 03/11/24 11:39 IMPRESSION: No hydronephrosis to suggest obstruction. Electronically Signed: Joshua Sosa MD at 13:28 EST Reading Location ID and State: [id number] / [employer] , Service support , Chest CTA 03/11/24 11:48 IMPRESSION: Normal CTA chest examination, without a demonstrated pulmonary embolism or arterial dissection. Electronically Signed: Joshua Sosa MD at 12:16 EST , Physical Exam Const Constitutional Narrative: intubated sedated. HEENT head/scalp atraumatic and moist oral mucous membranes Resp normal respiratory effort, no retractions, no use of accessory muscles and clear to auscultation bilaterally Cardio regular rate, regular rhythm, S1 normal heart sound and S2 normal heart sound GI normal to inspection, nondistended, normoactive bowel sounds, soft to palpation, non-tender and non-distended Extremity General Extremity: edema bilateral lower extremity Details: moderate Assessment & Plan Assessment/Plan (1) Acute on chronic respiratory failure with hypoxia and hypercapnia: PLAN: Plan Acute Hypoxic and Hypercapnic Respiratory Failure * CXR shows pulmonary vascular congestion. Likely component of CHF + COPD + MARYLU * Despite BiPAP, pCO2 increased and patient was subsequently intubated. * CCM input appreciated. Acute HFpEF * Acute ruled out. IV furosemide discontinued. * EF 60% from 12/15/2023 * no ACEi/ARB given CKD/EITAN * Continue carvedilol and isosorbide. Patient has reported adverse/adverse reaction to hydralazine EITAN v CKD * creatinine 3.43, had been 1.56. Likely due to diuresis and contrast from CTA. * furosemide discontinued and IVF ordered. * monitor. consider nephrology consult if continues to worsen. Chronic conditoins: * DM2: takes levemir 50 in AM and 45 in PM. Since on BiPAP, and NPO, will add low dose basal insulin. Continue SSI. * Hypertension: Continue home regimen including spironolactone, isosorbide, Coreg, IV Lasix as noted, PRN hydralazine. * Hyperlipidemia: Per current list is not on statin therapy, noted statin intolerance, FLP * Obesity: unclear class. BMI of 25.3 not accurate. VTE prophylaxis: LMWH. Charges/Coding Visit Charges Inpatient E&M: 05762 Subs Hosp L2
[2024-03-12 07:53] LABS: Absolute Lymphocyte Count 1.59 X10^3/uL (0.83-4.51); Absolute Neutrophil Count 5.9 X10^3/uL (2.0-7.7); Basophil# 0.04 X10^3/uL; Basophil% 0.5 % (0-1); Eosinophil# 0.05 X10^3/uL; Eosinophils% 0.6 % (0-5); Hematocrit 36.3 % (40-54); Hemoglobin 11.4 g/dL (13.0-16.5); Lymphocyte # 1.59 X10^3/ul (0.83-4.51); Lymphocyte % 18.6 % (19-41); Mean Corp Hgb Conc 31.4 g/dL (32-36); Mean Corpuscular Hgb 27.1 pg (27.0-32.0); Mean Corpuscular Volume 86.4 fL (80-94); Mean Platelet Vol. 10.6 fl (6.2-12.0); Monocyte# 0.97 X10^3/uL; Monocyte% 11.3 % (0-10); NRBC Flagged by Analyzer 0 % (0-5); Neutrophil # 5.89 X10^3/uL (2.7-7.7); Neutrophil % 68.6 % (47-70); Platelet Count 162 K/mm3 (150-450); RBC Distribution Width CV 14.9 % (11.6-14.6); RBC Distribution Width SD 47.3 fl (35.1-43.9); White Blood Count 8.6 K/mm3 (4.4-11.0)
[2024-03-12 08:33] LABS: Anion Gap 7 (5-15); BUN 50 mg/dL (7-18); BUN/Creat Ratio 14.6 RATIO (10-20); Calcium,Total 8.4 mg/dL (8.5-10.1); Chloride 95 mmol/L (98-107); Creatinine, Serum 3.43 mg/dL (0.70-1.30); EST Glomerular Filtration Rate 20 mL/min (>60); Est Glom Filt Rate - Afr Amer 24 mL/min (>60); Estimated Creatinine Clearance 29.93 ml/min; Glucose 403 mg/dL (74-106); Sodium Level 133 mmol/L (136-145)
--- NOTE | 2024-03-12 09:07 | WOUNDNOTE ---
In to reassess bilateral lower legs and feet. removed the TRINITY wraps. no drainage or open areas noted. washed legs and feet with soap and water. pat dry. reapplied the TRINITY wraps. pt tolerated well.
[2024-03-12] MEDS: 0.9% Normal Saline (1000mL) 1,000 ML 125 ML IV (09:19)
[2024-03-12] MEDS: Enoxaparin 40 MG/0.4 ML Syringe SC ×2 (09:23→21:08)
[2024-03-12] MEDS: Insulin Glargine-YFGN 100 UNIT/ML Pen 30 UNIT SC (09:23)
[2024-03-12] MEDS: Pantoprazole Sodium 40 MG in 0.9% Normal Saline (100mL MB+) 100 ML 330 MG IV (09:24)
[2024-03-12 09:33] LABS: Allen Test Positive; Base Excess 2 mmol/L (-2 to +2); Bicarbonate 26.8 mmol/L (22-26); Blood Gas Specimen Type ART; Mode AC; O2 Delivery Device Adult Vent; PEEP 5; PO2 71 mmHG (75-100); RR 15; SITE L Radial; SO2 93 % (95-99); Total Carbon Dioxide 28 mmol/L; pCO2 46.8 mmHg (35-45); pH 7.37 (7.35-7.45)
[2024-03-12] MEDS: Chlorhexidine 15 ML PO ×2 (09:34→21:10)
[2024-03-12] MEDS: CHLORHEXIDINE GLUC 2% CLOTH 1 EACH TOWELETTE TOPICAL (09:35)
[2024-03-12] MEDS: Propofol 10MG/Ml 1,000 MG/100 ML Bottle 8.6 MG CONT INF ×2 (10:30→20:10)
[2024-03-12] MEDS: Vancomycin HCl 2,000 MG in 0.9% Normal Saline (500mL Bag) 500 ML 250 MG IV (11:06)
[2024-03-12] MEDS: 0.9% Normal Saline (100mL Bag) 100 ML 15 ML IV (11:37)
--- NOTE | 2024-03-12 11:37 | PCM.RX.CS ---
Consult Antibiotic Management Pharmacy has been consulted to manage selected antibiotic: Vancomycin Type of Intervention Type of Consult: New start Suspected Infection Suspected Infection: Pneumonia Labs Labs: Sodium 133 mmol/L (136-145) L 03/12/24 05:15 Potassium 5.0 mmol/L (3.5-5.1) 03/12/24 05:15 Chloride 95 mmol/L (98-107) L 03/12/24 05:15 Carbon Dioxide 32.0 mmol/L (21.0-32.0) 03/12/24 05:15 Anion Gap 7 (5-15) 03/12/24 05:15 BUN 50 mg/dL (7-18) H 03/12/24 05:15 Creatinine 3.43 mg/dL (0.70-1.30) H 03/12/24 05:15 Est GFR (MDRD) Af Amer 24 mL/min (>60) L 03/12/24 05:15 Est GFR (MDRD) Non-Af 20 mL/min (>60) L 03/12/24 05:15 BUN/Creatinine Ratio 14.6 RATIO (10-20) 03/12/24 05:15 Glucose 403 mg/dL (74-106) H 03/12/24 05:15 Microbiology Microbiology: Microbiology 03/11/24 09:25 Sputum, Induced/Lukens Gram Stain - Final 03/11/24 09:25 Sputum, Induced/Lukens Respiratory Culture - Preliminary Staphylococcus aureus 03/11/24 09:25 Mucosa - Nasopharyngeal Respiratory Panel (PCR) - Final Parainfluenza 4 03/10/24 22:25 Mucosa - Nose SARS-CoV-2, Influenza & RSV (PCR) - Final Pharmacy Plan for Drug Dosing Pharmacy Plan for Drug Dosing: NEW START IV VANCOMYCIN Consulting Physician: Rajesh Indication: Pneumonia Goal Trough: 15-20 mg/dl SrCr: 3.43 mg/dL CrCl: 29 mL/min Comments: loading dose of 2000mg given 03/12 @ 1106 Vancomycin Dose: Will start 1250mg Q24H (03/13 @ 1100) and get a level prior to 3rd total dose per policy. Pending Level: 03/14/24 @ 1030 Pharmacy Service will continue to monitor and adjust dosing as required.
[2024-03-12] MEDS: Meropenem 1 GM in 0.9% Normal Saline (100mL MB+) 100 ML IV ×2 (11:38→21:07)
[2024-03-12 11:48] LABS: Bedside Glucose 374 mg/dL (74-106)
[2024-03-12] MEDS: Vital AF 1.2 Cal Liquid 1,000 ML 30 ML GT (14:24)
[2024-03-12 17:53] LABS: Bedside Glucose 422 mg/dL (74-106)
[2024-03-12] MEDS: hydrALAZINE 20 MG/ML Vial 10 MG IV (23:12)
[2024-03-12 23:17] LABS: Bedside Glucose > 500 mg/dL (74-106)
[2024-03-12] MEDS: Insulin Glargine-YFGN 100 UNIT/ML Pen 20 UNIT SC (23:30)
[2024-03-13] VITALS (38 sets, daily range): BP systolic 136–206; BP diastolic 55–86; PULSE 65–98; RESP 15–22; TEMP 36.1–36.9; O2SAT 82–95; BMI 55.8
[2024-03-13] MEDS: Insulin Lispro 100 UNIT/ML INSULN.PEN SC ×6 (02:08→20:54)
[2024-03-13] MEDS: fentaNYL drip 100 ML 12.5 MCG CONT INF ×3 (02:59→20:00)
[2024-03-13 03:07] LABS: Bedside Glucose > 500 mg/dL (74-106)
[2024-03-13] MEDS: 0.9% Saline Lock 10 ML Syringe IV ×2 (03:35→04:48)
[2024-03-13 03:48] LABS: Absolute Lymphocyte Count 0.86 X10^3/uL (0.83-4.51); Hematocrit 36.7 % (40-54); Hemoglobin 11.4 g/dL (13.0-16.5); Lymphocyte # 0.86 X10^3/ul (0.83-4.51); Lymphocyte % 9.4 % (19-41); Mean Corp Hgb Conc 31.1 g/dL (32-36); Mean Corpuscular Hgb 26.8 pg (27.0-32.0); Mean Corpuscular Volume 86.4 fL (80-94); Mean Platelet Vol. 9.6 fl (6.2-12.0); Monocyte# 0.21 X10^3/uL; Monocyte% 2.3 % (0-10); NRBC Flagged by Analyzer 0 % (0-5); Neutrophil # 8.01 X10^3/uL (2.7-7.7); Platelet Count 154 K/mm3 (150-450); RBC Distribution Width CV 14.7 % (11.6-14.6); RBC Distribution Width SD 46.6 fl (35.1-43.9); Red Blood Count 4.25 M/mm3 (4.6-6.2); White Blood Count 9.1 K/mm3 (4.4-11.0)
[2024-03-13 04:20] LABS: Anion Gap 9 (5-15); BUN 58 mg/dL (7-18); BUN/Creat Ratio 19.7 RATIO (10-20); Calcium,Total 8.8 mg/dL (8.5-10.1); Chloride 97 mmol/L (98-107); Creatinine, Serum 2.95 mg/dL (0.70-1.30); EST Glomerular Filtration Rate 23 mL/min (>60); Est Glom Filt Rate - Afr Amer 28 mL/min (>60); Glucose 591 mg/dL (74-106); Potassium 4.3 mmol/L (3.5-5.1); Sodium Level 133 mmol/L (136-145)
[2024-03-13] MEDS: Insulin Lispro 100 UNIT/ML INSULN.PEN 10 UNIT SC ×4 (04:47→17:29)
[2024-03-13] MEDS: Propofol 10MG/Ml 1,000 MG/100 ML Bottle 12.9 MG CONT INF ×3 (05:33→21:11)
--- NOTE | 2024-03-13 06:04 | PCM.PN.INT ---
Assessment & Plan Assessment/Plan (1) Acute on chronic respiratory failure with hypoxia and hypercapnia: PLAN: Plan RECOMMENDATIONS: 1. Continue assist-control mode mechanical ventilation. Wean FiO2 and PEEP as tolerated. 2. Continue scheduled bronchodilators. 3. Continue scheduled steroids. 4. Continue antibiotics to cover for Staphylococcus isolated on sputum culture. 5. Increase insulin glargine and continue sliding scale coverage. 6. Continue appropriate ICU prophylaxis. 7. Continue tube feeding as tolerated. IMPRESSIONS: 1. Acute on chronic combined respiratory failure The patient has a known history of COPD and obstructive sleep apnea, for which he is noncompliant with nocturnal PAP therapy. He has been lost to outpatient pulmonary follow-up since 2020. The patient presented with worsening shortness of breath and hypoxemia, likely secondary to an exacerbation of his COPD precipitated by parainfluenza and questionable staphylococcal tracheobronchitis. He was initially placed on noninvasive positive pressure ventilatory support, but failed to improve clinically, ultimately necessitating intubation. CTA chest ruled out pulmonary embolism. There was no definitive evidence of pneumonia. For now, the patient will be continued on scheduled bronchodilators and IV steroids. He has been placed on antimicrobials to address the staphylococcal that is currently demonstrating growth in his sputum culture. In the interim, continue to wean FiO2 and PEEP to maintain saturations at or above 90%. Plan for daily paired spontaneous awakening and breathing trials as tolerated. 2. Encephalopathy Improved. Most likely secondary to presenting hypercarbia, which failed to respond appropriately to noninvasive positive pressure ventilatory support. Mental status has improved with invasive mechanical ventilatory support. Continue propofol and fentanyl for sedation. 3. Acute on chronic kidney disease Possible progression of underlying medical renal disease versus contrast-induced nephropathy. Renal ultrasound was unremarkable. Continue to monitor urine output. No current indication for renal replacement therapy. Renal function is slowly improving. 4. History of hypertension/hyperlipidemia/diabetes mellitus/GERD/super morbid obesity Complicates care, management, recovery and prognosis. Continue home medications as indicated. Continue tube feeding as tolerated along with basal and sliding scale insulin coverage. TIME: 34 minutes of critical care time, independent of procedures, was spent addressing the patient's acute on chronic combined respiratory failure, encephalopathy, acute on chronic kidney disease, review of all data and collaboration with the care team. Subjective Subjective The patient was seen and examined at the bedside this morning. Events from the last 24 hours have been reviewed. The patient is currently afebrile, hemodynamically stable and maintaining appropriate oxygen saturations on assist-control mode mechanical ventilation with an FiO2 requirement of 40% and PEEP of 5. The patient had a marginal spontaneous breathing trial this morning. He is currently documented to be overall net +1.4 L for the hospitalization. He has been tolerant of tube feeding. White blood cell count is normal this morning. Creatinine has improved to 2.95. Glucose is elevated at 591. Objective Data Objective Data The patient's most recent lab work, culture data and imaging studies have all been personally reviewed. Respiratory viral panel was positive for parainfluenza. Preliminary sputum culture is demonstrating growth of Staph aureus. Vital Signs: Vital Signs Temp Pulse Resp BP Pulse Ox O2 Del Method O2 Flow Rate 98.5 F 74 15 136/55 H 91 Mechanical Ventilator 15 03/13/24 05:00 03/13/24 05:50 03/13/24 05:50 03/13/24 05:00 03/13/24 05:50 03/13/24 05:00 03/10/24 21:58 FiO2 40 03/13/24 05:50 Oxygen Flow Rate (L/min) 15 Oxygen Delivery Method Mechanical Ventilator Weight: 315 lb 7.704 oz Body Mass Index (BMI) 55.8 Intake & Output: Intake and Output for Last 24 Hours 03/11/24 03/12/24 03/13/24 23:59 23:59 23:59 Intake Total 444.37 / 507.54 2950.16 / 3071.26 476.33 / 476.33 Output Total 950 / 950 1225 / 1225 600 / 600 Balance -505.63 / -442.46 1725.16 / 1846.26 -123.67 / -123.67 Lab / Micro Data Attestation: I reviewed the patient's lab results. 03/13/24 03:35 03/13/24 03:35 Labs: Laboratory Results - last 24 hr 03/12/24 05:15: WBC 8.6, RBC 4.20 L, Hgb 11.4 L, Hct 36.3 L, MCV 86.4, MCH 27.1, MCHC 31.4 L, RDW Std Deviation 47.3 H, RDW Coeff of Jung 14.9 H, Plt Count 162, MPV 10.6, Immature Gran % (Auto) 0.400, Neut % (Auto) 68.6, Lymph % (Auto) 18.6 L, [place] % (Auto) 11.3 H, Eos % (Auto) 0.6, Baso % (Auto) 0.5, Absolute Neuts (auto) 5.9, Absolute Lymphs (auto) 1.59, Nucleated RBC % 0, Sodium 133 L, Potassium 5.0, Chloride 95 L, Carbon Dioxide 32.0, Anion Gap 7, BUN 50 H, Creatinine 3.43 H, Estim Creat Clear Calc 29.93, Est GFR (MDRD) Af Amer 24 L, Est GFR (MDRD) Non-Af 20 L, BUN/Creatinine Ratio 14.6, Glucose 403 H, Calcium 8.4 L 03/12/24 05:29: POC Glucose 386 H 03/12/24 11:29: POC Glucose 374 H 03/12/24 17:36: POC Glucose 422 H 03/12/24 22:58: POC Glucose > 500 H* 03/13/24 02:07: POC Glucose > 500 H* 03/13/24 03:35: WBC 9.1, RBC 4.25 L, Hgb 11.4 L, Hct 36.7 L, MCV 86.4, MCH 26.8 L, MCHC 31.1 L, RDW Std Deviation 46.6 H, RDW Coeff of Jung 14.7 H, Plt Count 154, MPV 9.6, Immature Gran % (Auto) 0.300, Neut % (Auto) 88.0 H, Lymph % (Auto) 9.4 L, [place] % (Auto) 2.3, Eos % (Auto) 0.0, Baso % (Auto) 0.0, Absolute Neuts (auto) 8.0 H, Absolute Lymphs (auto) 0.86, Nucleated RBC % 0, Sodium 133 L, Potassium 4.3, Chloride 97 L, Carbon Dioxide 27.0, Anion Gap 9, BUN 58 H, Creatinine 2.95 H, Estim Creat Clear Calc 34.80, Est GFR (MDRD) Af Amer 28 L, Est GFR (MDRD) Non-Af 23 L, BUN/Creatinine Ratio 19.7, Glucose 591 H*, Calcium 8.8 Micro: Microbiology 03/11/24 09:25 Sputum, Induced/Lukens Gram Stain - Final 03/11/24 09:25 Sputum, Induced/Lukens Respiratory Culture - Preliminary Staphylococcus aureus 03/11/24 09:25 Mucosa - Nasopharyngeal Respiratory Panel (PCR) - Final Parainfluenza 4 03/10/24 22:25 Mucosa - Nose SARS-CoV-2, Influenza & RSV (PCR) - Final ABG Data ABG results: ABG 03/12/24 09:30 Specimen Type ART Sample Site L Radial pH 7.37 Bicarbonate Actual 26.8 H Total CO2 28 Base Excess 2 O2 Saturation 93 L O2 % 45.0 ABG pCO2 46.8 H ABG pO2 71 L Catarino Test Positive Respiration Rate 15 O2 Delivery Device Adult Vent Vent Mode AC Tidal Volume 550.0 POC PEEP 5 Radiography Diagnostic Testing: Radiology Impression Chest X-Ray 03/11/24 09:20 IMPRESSION: Interval placement of endotracheal tube with the tip above the kendy. Interval placement of nasogastric tube with tip below the diaphragm. No active disease. Electronically Signed: Joshua Sosa MD at 10:03 EST Reading Location ID and State: [id number] / [employer] , Service support , KUB X-Ray 03/11/24 09:20 IMPRESSION: Nasogastric tube with the tip in the midline likely in the body of the stomach. No bowel obstruction. Electronically Signed: Joshua Sosa MD at 10:02 EST Reading Location ID and State: [id number] / [employer] , Service support , Renal Ultrasound 03/11/24 11:39 IMPRESSION: No hydronephrosis to suggest obstruction. Electronically Signed: Joshua Sosa MD at 13:28 EST Reading Location ID and State: [id number] / [employer] , Service support , Chest CTA 03/11/24 11:48 IMPRESSION: Normal CTA chest examination, without a demonstrated pulmonary embolism or arterial dissection. Electronically Signed: Joshua Sosa MD at 12:16 EST Reading Location ID and State: [id number] / [employer] , Service support , Physical Exam Const Constitutional Narrative: Intubated, sedated and mechanically ventilated. No ventilator dyssynchrony noted. HEENT normocephalic and head/scalp atraumatic Mouth: endotracheal tube in place and OG tube in place Eyes EOMs intact bilaterally and conjunctivae normal Neck supple General: trachea midline Chest inspection of chest normal Resp Auscultation: wheezes and diminished lung sounds Cardio regular rate and regular rhythm GI normal to inspection, nondistended, normoactive bowel sounds Extremity Extremity Narrative: Wrapped lower extremities. General Extremity: Negative for clubbing Skin General Skin Exam: venous stasis and dermatitis Neuro Sensorium / Orientation: sedated on vent Charges/Coding Procedures Hospitalists Procedures: [id number] Critical Care 1st Hr
[2024-03-13] MEDS: Ipratropium/Albuterol Sulfate 3 ML AMPUL.NEB INHALATION ×4 (07:06→19:23)
--- NOTE | 2024-03-13 07:16 | PN.HOSP_ITS ---
Reason for Visit Reason for Visit: Diagnoses Acute and chronic respiratory failure with hypoxia (03/10/24) Acute and chronic respiratory failure with hypercapnia (03/10/24) Subjective Subjective glucose poorly controlled Objective Data Objective Data Vital Signs: Vital Signs Temp Pulse Resp BP Pulse Ox O2 Del Method O2 Flow Rate 36.9 C 74 15 144/59 H 95 Mechanical Ventilator 15 03/13/24 05:00 03/13/24 07:07 03/13/24 07:07 03/13/24 07:00 03/13/24 07:07 03/13/24 07:00 03/10/24 21:58 FiO2 40 03/13/24 07:07 Oxygen Flow Rate (L/min) 15 Oxygen Delivery Method Mechanical Ventilator Weight: 143.1 kg Body Mass Index (BMI) 55.8 Intake & Output: Intake and Output for Last 24 Hours 03/11/24 03/12/24 03/13/24 23:59 23:59 23:59 Intake Total 444.37 / 507.54 2950.16 / 3071.26 501.73 / 501.73 Output Total 950 / 950 1225 / 1225 600 / 600 Balance -505.63 / -442.46 1725.16 / 1846.26 -98.27 / -98.27 Lab / Micro Data 03/13/24 03:35 03/13/24 03:35 Labs: Laboratory Results - last 24 hr 03/12/24 05:15: WBC 8.6, RBC 4.20 L, Hgb 11.4 L, Hct 36.3 L, MCV 86.4, MCH 27.1, MCHC 31.4 L, RDW Std Deviation 47.3 H, RDW Coeff of Jung 14.9 H, Plt Count 162, MPV 10.6, Immature Gran % (Auto) 0.400, Neut % (Auto) 68.6, Lymph % (Auto) 18.6 L, [place] % (Auto) 11.3 H, Eos % (Auto) 0.6, Baso % (Auto) 0.5, Absolute Neuts (auto) 5.9, Absolute Lymphs (auto) 1.59, Nucleated RBC % 0, Sodium 133 L, Potassium 5.0, Chloride 95 L, Carbon Dioxide 32.0, Anion Gap 7, BUN 50 H, C reatinine 3.43 H, Estim Creat Clear Calc 29.93, Est GFR (MDRD) Af Amer 24 L, Est GFR (MDRD) Non-Af 20 L, BUN/Creatinine Ratio 14.6, Glucose 403 H, Calcium 8.4 L 03/12/24 11:29: POC Glucose 374 H 03/12/24 17:36: POC Glucose 422 H 03/12/24 22:58: POC Glucose > 500 H* 03/13/24 02:07: POC Glucose > 500 H* 03/13/24 03:35: WBC 9.1, RBC 4.25 L, Hgb 11.4 L, Hct 36.7 L, MCV 86.4, MCH 26.8 L, MCHC 31.1 L, RDW Std Deviation 46.6 H, RDW Coeff of Jung 14.7 H, Plt Count 154, MPV 9.6, Immature Gran % (Auto) 0.300, Neut % (Auto) 88.0 H, Lymph % (Auto) 9.[address] L, [place] % (Auto) 2.3, Eos % (Auto) 0.0, Baso % (Auto) 0.0, Absolute Neuts (auto) 8.0 H, Absolute Lymphs (auto) 0.86, Nucleated RBC % 0, Sodium 133 L, Potassium 4.3, Chloride 97 L, Carbon Dioxide 27.0, Anion Gap 9, BUN 58 H, C reatinine 2.95 H, Estim Creat Clear Calc 34.80, Est GFR (MDRD) Af Amer 28 L, Est GFR (MDRD) Non-Af 23 L, BUN/Creatinine Ratio 19.7, Glucose 591 H*, Calcium 8.8 Micro: Microbiology 03/11/24 09:25 Sputum, Induced/Lukens Gram Stain - Final 03/11/24 09:25 Sputum, Induced/Lukens Respiratory Culture - Preliminary Staphylococcus aureus 03/11/24 09:25 Mucosa - Nasopharyngeal Respiratory Panel (PCR) - Final Parainfluenza 4 03/10/24 22:25 Mucosa - Nose SARS-CoV-2, Influenza & RSV (PCR) - Final ABG Data ABG results: ABG 03/12/24 09:30 Specimen Type ART Sample Site L Radial pH 7.37 Bicarbonate Actual 26.8 H Total CO2 28 Base Excess 2 O2 Saturation 93 L O2 % 45.0 ABG pCO2 46.8 H ABG pO2 71 L Catarino Test Positive Respiration Rate 15 O2 Delivery Device Adult Vent Vent Mode AC Tidal Volume 550.0 POC PEEP 5 Physical Exam Const Constitutional Narrative: Intubated. Sedated. Resp Resp Narrative: Coarse breath sounds bilaterally Cardio regular rate, regular rhythm, S1 normal heart sound and S2 normal heart sound GI normal to inspection, nondistended, normoactive bowel sounds, soft to palpation, non-tender and non-distended Extremity General Extremity: edema bilateral lower extremity Details: moderate Assessment & Plan Assessment/Plan (1) Acute on chronic respiratory failure with hypoxia and hypercapnia: PLAN: Plan Acute Hypoxic and Hypercapnic Respiratory Failure * CXR shows pulmonary vascular congestion. Likely component of CHF + COPD + MARYLU * Despite BiPAP, pCO2 increased and patient was subsequently intubated. * CCM input appreciated. * Respiratory panel shows parainfluenza 4 virus. Sputum culture showing Staph aureus * Onmeropenem and vancomycin Acute HFpEF * Acute ruled out. IV furosemide discontinued. * EF 60% from 12/15/2023 * no ACEi/ARB given CKD/EITAN * Continue carvedilol and isosorbide. EITAN v CKD * creatinine 3.43, down to 2.95, had been 1.56. Likely due to diuresis and contrast from CTA. * furosemide discontinued and IVF ordered. * monitor. consider nephrology consult if continues to worsen. Chronic conditoins: * DM2: Uncontrolled. takes levemir 50 in AM and 45 in PM. Continue SSI. Will increase glargine to 45 BID to better represent his home dosing.Check a1c * Hypertension: Continue home regimen including isosorbide, Coreg, PRN hydralazine. * Hyperlipidemia: Per current list is not on statin therapy, noted statin intolerance, FLP * Obesity: unclear class. BMI of 25.3 not accurate. VTE prophylaxis: LMWH. Charges/Coding Visit Charges Inpatient E&M: 25022 Subs Hosp L2
[2024-03-13 08:21] LABS: Hemoglobin A1c 8.6 % (3.8-5.6)
[2024-03-13] MEDS: Chlorhexidine 15 ML PO ×2 (08:50→20:54)
[2024-03-13] MEDS: CHLORHEXIDINE GLUC 2% CLOTH 1 EACH TOWELETTE TOPICAL (08:50)
[2024-03-13] MEDS: Enoxaparin 40 MG/0.4 ML Syringe SC ×2 (08:51→20:48)
[2024-03-13] MEDS: Pantoprazole Sodium 40 MG in 0.9% Normal Saline (100mL MB+) 100 ML 330 MG IV (08:53)
[2024-03-13] MEDS: Meropenem 1 GM in 0.9% Normal Saline (100mL MB+) 100 ML IV ×2 (09:17→20:48)
--- NOTE | 2024-03-13 09:53 | CPS ---
pt desated to 82% on weaning trail per KALA Amezcua. Dr Mena restarted patient to previous settings
[2024-03-13] MEDS: Insulin Glargine-YFGN 100 UNIT/ML Pen 45 UNIT SC (10:14)
[2024-03-13 10:37] LABS: Bedside Glucose 465 mg/dL (74-106)
[2024-03-13] MEDS: hydrALAZINE 20 MG/ML Vial 10 MG IV ×2 (11:12→19:49)
[2024-03-13] MEDS: Vancomycin HCl 1,250 MG in 0.9% Normal Saline (250mL Bag) 250 ML 167 MG IV (12:29)
[2024-03-13 13:41] LABS: Bedside Glucose 447 mg/dL (74-106)
--- NOTE | 2024-03-13 15:00 | CASEMGMT ---
Pt CM through [facility] (Amy Pavel @ [phone]) calls this RN CM at this time, requesting an update on the pt status. This RN CM updated the CM of the pt status and the plan of care moving forward. Amy thanks this RN CM and denies any further current needs.
[2024-03-13] MEDS: Labetalol (Prefilled) 20 MG/4 ML Vial IV ×2 (15:04→22:24)
[2024-03-13] MEDS: Vital AF 1.2 Cal Liquid 1,000 ML 60 ML GT (15:21)
[2024-03-13 17:59] LABS: Bedside Glucose 460 mg/dL (74-106)
[2024-03-13] MEDS: Insulin Lispro 100 UNIT/ML INSULN.PEN 15 UNIT SC (20:55)
[2024-03-13] MEDS: Insulin Glargine-YFGN 100 UNIT/ML Pen 60 UNIT SC (20:56)
[2024-03-13 21:32] LABS: Bedside Glucose 477 mg/dL (74-106)
[2024-03-14] VITALS (36 sets, daily range): BP systolic 123–196; BP diastolic 58–111; PULSE 61–84; RESP 15–18; TEMP 36–36.7; O2SAT 84–97; BMI 55.5
[2024-03-14] MEDS: Insulin Lispro 100 UNIT/ML INSULN.PEN 15 UNIT SC ×6 (01:12→21:51)
[2024-03-14] MEDS: Insulin Lispro 100 UNIT/ML INSULN.PEN SC ×6 (01:12→21:51)
[2024-03-14 01:51] LABS: Bedside Glucose > 500 mg/dL (74-106)
[2024-03-14] MEDS: fentaNYL drip 100 ML 12.5 MCG CONT INF ×3 (04:00→22:00)
[2024-03-14] MEDS: Propofol 10MG/Ml 1,000 MG/100 ML Bottle 12.9 MG CONT INF (04:15)
[2024-03-14] MEDS: 0.9% Saline Lock 10 ML Syringe IV ×2 (06:21→21:47)
[2024-03-14] MEDS: hydrALAZINE 20 MG/ML Vial 10 MG IV (06:25)
[2024-03-14 06:47] LABS: Bedside Glucose 465 mg/dL (74-106)
--- NOTE | 2024-03-14 07:25 | PN.HOSP_ITS ---
Reason for Visit Reason for Visit: Shortness of breath/hypoxia Subjective Subjective Mr. Thomas is a 58-year-old white male with a history of morbid obesity and COPD having chronic hypoxic respiratory failure with 3 L requirement at baseline who presented to the emergency department [facility] on 03/10/2024 with acute on chronic hypoxia and shortness of breath. Patient reported that it started about 3 days prior to presentation but was significantly worsening over about 2 days prior to presentation. He became acutely worse at about 3 PM on the day of presentation without any relief of his home administered nebulizer treatments so he called the emergency department. In the emergency department he was found to be 80% on room air. He had no cough on presentation denied any significant weight gain or worsening lower extremity swelling but did report orthopnea. Initial vital signs emergency department showed a temp of 98.7, heart rate 91, respiratory rate 27 and sats were initially 98% on a 15 L nonrebreather. Eventually desatted and was placed back on the nonrebreather after attempted wean and then progressed to requirement of BiPAP. CBC was unremarkable but there was a left shift having a 75.4% neutrophilia. Chemistry panel showed a sodium of 133, normal potassium, bicarb was 38, renal function showed a serum creatinine of 1.98 above his baseline of 1.5-1.6 and his serum glucose was 1 390. Procalcitonin was 0.14. Chest x-ray on presentation was unremarkable. COVID/flu/and RSV were negative however his respiratory viral panel was positive for parainfluenza 4. Sputum culture was obtained and was positive for MSSA. Initial blood gas showed a pH of 7.22 with a pCO2 of 90.2 and a pO2 of 56. On admission he was placed on broad-spectrum antibiotics and eventually required intubation due to decompensation on BiPAP. Pulmonary/critical care medicine was consulted on 03/11/2024 for assistance with management. After he was stable from a respiratory standpoint a CTA of his chest was performed and showed no significant abnormalities. Patient remains on mechanical ventilation with an FiO2 of 40% and PEEP of 5. No issues overnight other than significant hyperglycemia which has been addressed by the night physician with titration of his insulin. Blood pressure has also been markedly elevated. Objective Data Objective Data Vital Signs: Vital Signs Temp Pulse Resp BP Pulse Ox O2 Del Method O2 Flow Rate 97.9 F 82 15 173/61 H 92 Mechanical Ventilator 15 03/14/24 06:00 03/14/24 07:00 03/14/24 07:00 03/14/24 07:00 03/14/24 07:00 03/14/24 07:00 03/10/24 21:58 FiO2 40 03/14/24 07:00 Oxygen Flow Rate (L/min) 15 Oxygen Delivery Method Mechanical Ventilator Weight: 142.2 kg Body Mass Index (BMI) 55.5 Intake & Output: Intake and Output for Last 24 Hours 03/12/24 03/13/24 03/14/24 23:59 23:59 23:59 Intake Total 2950.16 / 3071.26 2510.96 / 2636.36 1237.21 / 1237.21 Output Total 1225 / 1225 1460 / 2060 1000 / 1000 Balance 1725.16 / 1846.26 1050.96 / 576.36 237.21 / 237.21 Lab / Micro Data 03/14/24 04:25 03/14/24 04:25 Labs: Laboratory Results - last 24 hr 03/13/24 03:35: Hemoglobin A1c 8.6 H 03/13/24 10:13: POC Glucose 465 H* 03/13/24 13:16: POC Glucose 447 H 03/13/24 17:27: POC Glucose 460 H* 03/13/24 20:52: POC Glucose 477 H* 03/14/24 01:10: POC Glucose > 500 H* 03/14/24 06:16: POC Glucose 465 H* Micro: Microbiology 03/11/24 09:25 Sputum, Induced/Lukens Gram Stain - Final 03/11/24 09:25 Sputum, Induced/Lukens Respiratory Culture - Final Staphylococcus aureus 03/11/24 09:25 Mucosa - Nasopharyngeal Respiratory Panel (PCR) - Final Parainfluenza 4 03/10/24 22:25 Mucosa - Nose SARS-CoV-2, Influenza & RSV (PCR) - Final Physical Exam Const no apparent distress and well nourished; Negative for alert, oriented x3, average body habitus or healthy appearing Constitutional Narrative: Morbidly obese, upper, middle-aged, white male, lying in bed intubated sedated, nursing at bedside, appears comfortable, nontoxic HEENT head/scalp atraumatic and moist oral mucous membranes HEENT Narrative: ET tube and OG in place Head and Scalp: normocephalic Resp normal respiratory effort, no retractions, no use of accessory muscles and clear to auscultation bilaterally Resp Narrative: Scattered end expiratory wheezing Auscultation: Negative for rales, rhonchi or wheezes Cardio regular rate, regular rhythm, S1 normal heart sound, S2 normal heart sound, no murmurs, no rub and no clicks; Negative for no gallops Cardio Narrative: S4 gallop noted GI normal to inspection, nondistended, normoactive bowel sounds, soft to palpation and non-tender Extremity no clubbing, cyanosis or edema Extremity Narrative: Pedal and radial pulses are 2+ Skin no jaundice, no petechiae and no mottling Neuro Neuro Narrative: Patient currently sedated however per nursing patient awakens with sedation vacation and follows all commands Psych Psych Narrative: Unable to assess Assessment & Plan Assessment/Plan (1) Acute on chronic respiratory failure with hypoxia and hypercapnia: (2) MSSA (methicillin susceptible Staphylococcus aureus) pneumonia: (3) Parainfluenza infection: (4) Hyperglycemia: (5) EITAN (acute kidney injury): (6) Hypophosphatemia: PLAN: Plan Acute hypoxic and hypercapnic respiratory failure secondary to MSSA pneumonia/parainfluenza virus infection -Will narrow antibiotics from meropenem and vancomycin to Ancef 1 g 3 times daily -Continue aerosols -Wean prednisone from 40 every 6 to 40 every 8 -Continue mechanical ventilation--> currently on PEEP of 5 and 40% FiO2 with sats in the low 90s -Continue aggressive pulmonary toilet -Tube feeds are at goal -Will optimize phosphorus to aid in extubation with musculoskeletal mechanics -Pulmonary/critical care following-appreciate input DM-2 with hyperglycemia -Basal insulin was increased to 60 twice daily -Continue lispro 15 units every 4 hours -Continue sliding scale -Highly suspect his hyperglycemia is related to his tube feed being at goal in addition to steroid use -Will wean steroids slightly today continue to monitor closely EITAN on CKD stage IIIb -Baseline serum creatinine appears to be between 1.45 and 1.6 -Current serum creatinine is 2.48 with a peak of 3.43 -Continues to improve -Avoid diuretics for now -Home Aldactone is on hold -Repeat lab in a.m. -No need for renal replacement therapy -Renal ultrasound was performed and shows no hydronephrosis Essential hypertension/hyperlipidemia -Has been on his home Coreg and isosorbide however isosorbide is not crushable so on hold -Carvedilol was discontinued for unknown reasons -Will put him on labetalol in the event that he is able to be extubated and transition to orals as able -continue as needed hydralazine -May need to either increase labetalol or add another antihypertensive scheduled depending on blood pressure trends -Patient is not currently on a statin Toxic/metabolic encephalopathy -Likely related to hypercapnia on presentation -Seems to be following commands well now GERD -Continue IV PPI while intubated Morbid obesity -BMI is 55.5 -Recommend weight loss -Complicates treatment, prognosis, outcomes DVT prophylaxis -Continue subcu Lovenox 40 twice daily due to BMI greater than 40 CODE STATUS -Full code Charges/Coding Visit Charges Inpatient E&M: 78917 Subs Hosp L2
[2024-03-14] MEDS: Pantoprazole Sodium 40 MG in 0.9% Normal Saline (100mL MB+) 100 ML 330 MG IV (07:54)
[2024-03-14] MEDS: Enoxaparin 40 MG/0.4 ML Syringe SC ×2 (07:55→21:46)
[2024-03-14] MEDS: Chlorhexidine 15 ML PO ×2 (07:56→21:47)
[2024-03-14] MEDS: CHLORHEXIDINE GLUC 2% CLOTH 1 EACH TOWELETTE TOPICAL (07:57)
[2024-03-14] MEDS: Insulin Glargine-YFGN 100 UNIT/ML Pen 60 UNIT SC ×2 (08:01→21:48)
[2024-03-14 08:13] LABS: Absolute Lymphocyte Count 0.87 X10^3/uL (0.83-4.51); Absolute Neutrophil Count 10.5 X10^3/uL (2.0-7.7); Basophil# 0.02 X10^3/uL; Basophil% 0.2 % (0-1); Hematocrit 38.3 % (40-54); Lymphocyte # 0.87 X10^3/ul (0.83-4.51); Lymphocyte % 7.3 % (19-41); Mean Corp Hgb Conc 31.3 g/dL (32-36); Mean Corpuscular Hgb 27.3 pg (27.0-32.0); Mean Platelet Vol. 11.2 fl (6.2-12.0); Monocyte# 0.52 X10^3/uL; Monocyte% 4.3 % (0-10); NRBC Flagged by Analyzer 0 % (0-5); Neutrophil # 10.53 X10^3/uL (2.7-7.7); Neutrophil % 87.8 % (47-70); POSITIVE MORPHOLOGY YES; Platelet Count 178 K/mm3 (150-450); RBC Distribution Width CV 15.1 % (11.6-14.6)
[2024-03-14 08:15] LABS: Differential Indicated SCAN CRITERIA MET
[2024-03-14 08:18] LABS: ALB/GLOB Ratio 0.4 RATIO (0.9-2.4); AST(SGOT) 15 U/L (15-37); Alanine Aminotransfer ALT/SGPT 13 U/L (16-61); Albumin, Serum 2.2 g/dL (3.2-5.0); Alkaline Phosphatase 95 U/L (45-117); Anion Gap 4 (5-15); BUN 66 mg/dL (7-18); BUN/Creat Ratio 26.6 RATIO (10-20); Calcium,Total 9.2 mg/dL (8.5-10.1); Chloride 104 mmol/L (98-107); Creatinine, Serum 2.48 mg/dL (0.70-1.30); EST Glomerular Filtration Rate 29 mL/min (>60); Est Glom Filt Rate - Afr Amer 34 mL/min (>60); Estimated Creatinine Clearance 41.29 ml/min; Globulin 5.3 g/dL (2.2-4.2); Glucose 445 mg/dL (74-106); Magnesium 2.9 mg/dL (1.6-2.6); Phosphorus 1.9 mg/dL (2.5-4.9); Potassium 3.6 mmol/L (3.5-5.1); Protein, Total 7.5 g/dL (6.4-8.2); Sodium Level 139 mmol/L (136-145)
[2024-03-14] MEDS: Meropenem 1 GM in 0.9% Normal Saline (100mL MB+) 100 ML IV (08:40)
[2024-03-14] MEDS: Vital AF 1.2 Cal Liquid 1,000 ML 60 ML GT (08:40)
[2024-03-14] MEDS: Labetalol (Prefilled) 20 MG/4 ML Vial IV ×2 (08:41→14:32)
[2024-03-14 09:48] LABS: Vancomycin, Trough Level 17.8 ug/mL (5.0-15.0)
[2024-03-14 10:06] LABS: Differential Comment SCANNED; Platelet Estimate ADEQUATE (ADEQ); Red Cell Morphology NORM C+C NORMAL (NORM C&C)
[2024-03-14] MEDS: Propofol 10MG/Ml 1,000 MG/100 ML Bottle 12.8 MG CONT INF ×2 (10:12→16:36)
[2024-03-14 10:27] LABS: Bedside Glucose 426 mg/dL (74-106)
--- NOTE | 2024-03-14 10:27 | CPS ---
Manzanola failed due to decrease in spo2 to 86% with apnea episodes. Patient returned to previously charted vent settings.
[2024-03-14] MEDS: Ipratropium/Albuterol Sulfate 3 ML AMPUL.NEB INHALATION ×3 (10:31→19:09)
--- NOTE | 2024-03-14 10:39 | PCM.RX.CS ---
Consult Antibiotic Management Pharmacy has been consulted to manage selected antibiotic: Vancomycin Type of Intervention Type of Consult: Follow-up Suspected Infection Suspected Infection: Pneumonia Labs Labs: Sodium 139 mmol/L (136-145) 03/14/24 04:25 Potassium 3.6 mmol/L (3.5-5.1) 03/14/24 04:25 Chloride 104 mmol/L (98-107) 03/14/24 04:25 Carbon Dioxide 31.0 mmol/L (21.0-32.0) 03/14/24 04:25 Anion Gap 4 (5-15) L 03/14/24 04:25 BUN 66 mg/dL (7-18) H 03/14/24 04:25 Creatinine 2.48 mg/dL (0.70-1.30) H 03/14/24 04:25 Est GFR (MDRD) Af Amer 34 mL/min (>60) L 03/14/24 04:25 Est GFR (MDRD) Non-Af 29 mL/min (>60) L 03/14/24 04:25 BUN/Creatinine Ratio 26.6 RATIO (10-20) H 03/14/24 04:25 Glucose 445 mg/dL (74-106) H 03/14/24 04:25 Vancomycin Trough 17.8 ug/mL (5.0-15.0) H 03/14/24 09:15 Microbiology Microbiology: Microbiology 03/11/24 09:25 Sputum, Induced/Lukens Gram Stain - Final 03/11/24 09:25 Sputum, Induced/Lukens Respiratory Culture - Final Staphylococcus aureus 03/11/24 09:25 Mucosa - Nasopharyngeal Respiratory Panel (PCR) - Final Parainfluenza 4 03/10/24 22:25 Mucosa - Nose SARS-CoV-2, Influenza & RSV (PCR) - Final Goal Trough Goal Trough: 15-20 mcg/mL Pharmacy Plan for Drug Dosing Pharmacy Plan for Drug Dosing: VANCOMYCIN LEVEL RECEIVED Current Vancomycin Dose: 1250mg Q24H Number of Doses Received: 1250mg x1, 2000mg x1 Vancomycin Level: 17.8 Hours Since Last Dose: 20.75 Renal Function: sCr 2.48 Renal Function Trend: stable - improved Lab/Micro: pending Vancomycin Plan/Comments: Continue Vancomycin 1250mg Q24H as level drawn early and not yet to steady state Pending Level: Vancomycin trough @ 1030 03/16/24 Pharmacy Service will continue to monitor and adjust dosing as required. Follow-Up Labs Follow-Up Labs: Trough: Vancomycin (03/16/24 @ 10:30)
[2024-03-14] MEDS: Vancomycin HCl 1,250 MG in 0.9% Normal Saline (250mL Bag) 250 ML 167 MG IV (11:51)
--- NOTE | 2024-03-14 14:06 | WOUNDNOTE ---
In to reassess bilateral lower legs. removed TRINITY wraps and dressings. no drainage noted. washed legs and feet with soap and water. pat dry. applied aloe vesta followed by kerlix and TRINITY wraps. pt tolerated well.
--- NOTE | 2024-03-14 14:42 | PN.CC_ITS ---
Objective Data Objective Data Vital Signs: Vital Signs Last response 3 Temperature 36.7 C 03/14/24 12:00 Temperature Source Temporal 03/14/24 12:00 Pulse Rate 70 03/14/24 14:00 Respiratory Rate 15 03/14/24 14:00 Respiratory Effort Mechanically Ventilated 03/14/24 11:13 Respiratory Depth Normal 03/14/24 11:13 Respiratory Pattern Normal 03/14/24 13:45 Blood Pressure 175/67 H 03/14/24 14:00 Blood Pressure Mean 103 03/14/24 14:00 Blood Pressure Source Monitor 03/14/24 14:00 Blood Pressure Position Semi-Fowlers 03/14/24 14:00 Blood Pressure Location Right Arm 03/14/24 14:00 Pulse Ox 97 03/14/24 14:00 Oxygen Delivery Method Nasal Cannula 03/14/24 14:00 Oxygen Flow Rate (L/min) 3 03/14/24 14:00 Fraction of Inspired Oxygen (FIO2) 40 03/14/24 13:45 CLA-BSI maintained Yes 03/12/24 04:00 I&O: I&O Last 24 Hours 3 03/13/24 03/14/24 03/14/24 23:59 11:59 23:59 Intake Total 1371.00 / 2636.36 1916.33 / 2372.35 456.02 / 2372.35 Output Total 860 / 2060 1000 / 1350 350 / 1350 Balance 511.00 / 576.36 916.33 / 1022.35 106.02 / 1022.35 I&O: Total Stay 3 03/10/24 21:46 thru 03/14/24 13:51 Intake Total 8277.84 Output Total 4985 Balance 3292.84 Current Meds Ordered / Administered: Current meds ordered / Administered 3 Generic Name Dose Route Start Last Admin Trade Name Freq PRN Reason Stop Dose Admin Acetaminophen 650 mg 03/12/24 08:24 Acetaminophen 650 Mg/20 Ml Udc GT Q4H PRN PRN Fever, pain 1-10/10 Al Hydroxide/Mg Hydroxide 30 ml 03/12/24 08:25 Mag Hydrox/Al Hydrox/Simeth 30 Ml Udc GT Q6H PRN PRN Gastric Burning Albuterol Sulfate 2.5 mg 03/11/24 01:19 Albuterol 2.5 Mg/3 Ml Vial.Neb. INHALATION Q2H PRN PRN Dyspnea, wheezing Albuterol/Ipratropium 3 ml 03/11/24 01:19 03/14/24 10:31 Ipratropium/Albuterol Sulfate 3 Ml Ampul.Neb INHALATION 3 ml Q4HWA.RT RUBEN Administration Chlorhexidine Gluconate 15 ml 03/12/24 10:00 03/14/24 07:56 Chlorhexidine 15 Ml PO 15 ml BID RUBEN Administration Chlorhexidine Gluconate 1 each 03/12/24 10:00 03/14/24 07:57 Chlorhexidine Gluc 2% Cloth 1 Each [place]lette TOPICAL 1 each DAILY RUBEN Administration Enoxaparin Sodium 40 mg 03/11/24 10:00 03/14/24 07:55 Enoxaparin 40 Mg/0.4 Ml Syringe SC 40 mg BID RUBEN Administration Glucagon 1 mg 03/11/24 01:19 Glucagon 1 Mg/Ml Syringe IM X1 PRN HYPOGLYCEMIA Protocol Guaifenesin 10 ml 03/12/24 08:24 Guaifenesin 10 Ml Udc (200mg/10ml) GT Q4H PRN PRN COUGH Hydralazine HCl 10 mg 03/12/24 22:13 03/14/24 06:25 Hydralazine 20 Mg/Ml Vial IV 10 mg Q8H PRN PRN Administration SBP GREATER THAN 180 Protocol Dextrose 250 mls @ 0 mls/hr 03/11/24 01:19 Dextrose 10%-Water IV .Q0M PRN HYPOGLYCEMIA Protocol As Directed Sodium Chloride 100 mls @ 15 mls/hr 03/11/24 02:14 03/12/24 18:24 IV Infused .Q6H40M PRN Infusion Saline Flush Sodium Chloride 100 mls @ 15 mls/hr 03/11/24 02:14 IV .Q6H40M PRN Additional IVPB Infusion Propofol 1,000 mg in 100 mls @ 8.532 mls/hr 03/11/24 09:05 03/14/24 13:00 Diprivan CONT INF 15 mcg/kg/min .[id number] RUBEN 12.8 mls/hr Titration Protocol 10 MCG/KG/MIN Fentanyl 100 mls @ 5 mls/hr 03/11/24 09:05 03/14/24 13:52 CONT INF 125 mcg/hr UD RUBEN 12.5 mls/hr Administration Protocol 50 MCG/HR Pantoprazole Sodium 40 mg/ 110 mls @ 330 mls/hr 03/11/24 17:10 03/14/24 09:21 Sodium Chloride IV Infused DAILY RUBEN Infusion Vancomycin IV-PHARMACY TO DOSE 500 mls @ 250 mls/hr 03/12/24 10:02 1 each/ Sodium Chloride IV X1 PRN Rx to Dose Protocol Meropenem 1 gm/ Sodium 120 mls @ 33 mls/hr 03/12/24 11:00 03/14/24 12:33 Chloride IV Infused Q12 RUBEN Infusion Vancomycin HCl 1,250 mg/ 275 mls @ 167 mls/hr 03/13/24 11:00 03/14/24 13:51 Sodium Chloride IV Infused Q24H RUBEN Infusion Enteral Nutritional Formula 1,000 mls @ 60 mls/hr 03/12/24 12:30 03/14/24 10:00 Vital Af 1.2 Jonnathan Liquid GT 60 mls/hr .[id number] RUBEN Infusion Insulin Glargine 60 unit 03/13/24 22:00 03/14/24 08:01 Insulin Glargine-Yfgn 100 Unit/Ml Pen SC 60 unit BID RUBEN Administration Insulin Human Lispro 0 unit 03/12/24 23:15 03/14/24 14:31 Insulin Lispro 100 Unit/Ml Insuln.Pen SC 12 u Q4 RUBEN Administration Protocol Insulin Human Lispro 15 unit 03/13/24 22:00 03/14/24 14:31 Insulin Lispro 100 Unit/Ml Insuln.Pen SC 15 u Q4 RUBEN Administration Labetalol HCl 20 mg 03/13/24 13:22 03/13/24 22:24 Labetalol (Prefilled) 20 Mg/4 Ml Vial IV 20 mg Q4H PRN PRN Administration SBP GREATER THAN 170 Labetalol HCl 20 mg 03/14/24 10:00 03/14/24 14:32 Labetalol (Prefilled) 20 Mg/4 Ml Vial IV 20 mg Q4 RUBEN Administration Melatonin 3 mg 03/12/24 08:25 Melatonin 3 Mg Tablet GT QHS PRN PRN INSOMNIA Methylprednisolone 40 mg 03/12/24 12:00 03/14/24 11:52 Methylprednisolone 40 Mg/Ml Vial IV 40 mg Q6 RUBEN Administration Ondansetron HCl 4 mg 03/11/24 01:19 Ondansetron 4 Mg/2 Ml Vial IV Q8H PRN PRN NAUSEA/VOMITING Prochlorperazine Edisylate 5 mg 03/11/24 01:19 Prochlorperazine 10 Mg/2 Ml Vial IV Q4H PRN PRN Breakthrough Nausea/Vomiting Senna/Docusate Sodium 2 tablet 03/12/24 08:25 Senna/Docusate Sodium 1 Tablet GT BID PRN PRN Constipation Sodium Chloride 10 - 40 ml 03/11/24 02:14 03/14/24 06:21 0.9% Saline Lock 10 Ml Syringe IV 30 ml UD PRN Administration SALINE FLUSH Vancomycin Protocol 1 lab 03/16/24 08:30 Vancomycin Trough/Random Due MC 03/16/24 12:30 DAILY [facility] Lab / Micro Data 03/14/24 04:25 03/14/24 04:25 Labs: Laboratory Results - last 24 hr 03/13/24 17:27: POC Glucose 460 H* 03/13/24 20:52: POC Glucose 477 H* 03/14/24 01:10: POC Glucose > 500 H* 03/14/24 04:25: WBC 12.0 H, RBC 4.40 L, Hgb 12.0 L, Hct 38.3 L, MCV 87.0, MCH 27.3, MCHC 31.3 L, RDW Std Deviation 48.0 H, RDW Coeff of Jung 15.1 H, Plt Count 178, MPV 11.2, Immature Gran % (Auto) 0.400, Neut % (Auto) 87.8 H, Lymph % (Auto) 7.3 L, Camp % (Auto) 4.3, Eos % (Auto) 0.0, Baso % (Auto) 0.2, Absolute Neuts (auto) 10.5 H, Absolute Lymphs (auto) 0.87, Nucleated RBC % 0, Differential Comment SCANNED, Platelet Estimate ADEQUATE, RBC Morphology NORM C+C, Sodium 139, Potassium 3.6, Chloride 104, Carbon Dioxide 31.0, Anion Gap 4 L , BUN 66 H, Creatinine 2.48 H, Estim Creat Clear Calc 41.29, Est GFR (MDRD) Af Amer 34 L, Est GFR (MDRD) Non-Af 29 L, BUN/Creatinine Ratio 26.6 H, Glucose 445 H, Calcium 9.2, Phosphorus 1.9 L, Magnesium 2.9 H, Total Bilirubin 0.20, AST 15, ALT 13 L, Alkaline Phosphatase 95, Total Protein 7.5, Albumin 2.2 L, Globulin 5.3 H, Albumin/Globulin Ratio 0.4 L 03/14/24 06:16: POC Glucose 465 H* 03/14/24 09:15: Vancomycin Trough 17.8 H 03/14/24 10:04: POC Glucose 426 H Micro: Microbiology 03/11/24 09:25 Sputum, Induced/Lukens Gram Stain - Final 03/11/24 09:25 Sputum, Induced/Lukens Respiratory Culture - Final Staphylococcus aureus Assessment and Plan . Assessment and plan: Patient seen and examined Chart and data reviewed He remains ill Sedated SBT attempted - developed hypoxemia and hypoventilation/apnea IM adjusting insulin for severe hyperglycemia Persistent renal insufficiency and hypervolemia MV 9 LPM, PIP 26, FiO2 0.4 EXAM GEN NAD - sedated VS as above HEENT BARBARA NECK obese COR RRR CHEST diminished ABD obese EXT pitting edema SKIN w/d OLI - sedatedNF ASSESSMENT 1. Acute and chronic respiratory failure requiring MV support 2. Morbid obesity 3. AECOPD 4. Parainfluenza infection 5. Chronic CHF 6. Hypervolemia 7. Renal insufficiency 8. DM / hyperglycemia 9. Metabolic encephalopathy TREATMENT PLAN -daily SBT -sedation as needed -steroids / inhaled BD -forced diuresis -follow renal function closely -sq insulin -TF -VTE ppx Critical Care Time: 50 min The entirety of this encounter was done via Telemedicine
[2024-03-14 14:52] LABS: Bedside Glucose 362 mg/dL (74-106)
[2024-03-14] MEDS: Labetalol 100 MG/20 ML Vial 40 MG IV ×2 (17:36→21:47)
[2024-03-14 17:54] LABS: Bedside Glucose 356 mg/dL (74-106)
[2024-03-14] MEDS: Potassium Phosphate 40 MM in 0.9% Normal Saline (500mL Bag) 500 ML 62.5 MM IV (18:57)
[2024-03-14] MEDS: Cefazolin 1 GM/50 ML BAG IV (21:46)
[2024-03-14 22:28] LABS: Bedside Glucose 378 mg/dL (74-106)
[2024-03-15] VITALS (39 sets, daily range): BP systolic 124–166; BP diastolic 46–91; PULSE 60–82; RESP 12–28; TEMP 35.9–36.6; O2SAT 20–98; BMI 56.2
[2024-03-15] MEDS: Furosemide 100 MG/10 ML Vial 60 MG IV ×3 (00:08→15:36)
[2024-03-15] MEDS: Propofol 10MG/Ml 1,000 MG/100 ML Bottle 12.8 MG CONT INF ×2 (01:00→08:00)
[2024-03-15] MEDS: Insulin Lispro 100 UNIT/ML INSULN.PEN 15 UNIT SC ×2 (02:13→05:40)
[2024-03-15] MEDS: Labetalol 100 MG/20 ML Vial 40 MG IV ×4 (02:13→13:41)
[2024-03-15] MEDS: Insulin Lispro 100 UNIT/ML INSULN.PEN SC ×6 (02:13→21:48)
[2024-03-15 02:35] LABS: Bedside Glucose 363 mg/dL (74-106)
[2024-03-15] MEDS: Vital AF 1.2 Cal Liquid 1,000 ML 60 ML GT (04:00)
[2024-03-15] MEDS: Cefazolin 1 GM/50 ML BAG IV ×3 (05:39→19:43)
[2024-03-15] MEDS: fentaNYL drip 100 ML 12.5 MCG CONT INF (06:00)
--- NOTE | 2024-03-15 06:00 | RAD_ITS ---
EXAM: XR CHEST, 1 VIEW CLINICAL INDICATION: ARF TECHNIQUE: Frontal view of the chest. COMPARISON: Single view chest 03/10/2024 FINDINGS: LUNGS AND PLEURAL SPACES: Unremarkable. No consolidation or edema. No pneumothorax. No effusion. HEART: Unremarkable. Cardiac silhouette not enlarged. MEDIASTINUM: Central airways and mediastinal contour are unremarkable. BONES/JOINTS: Unremarkable. No acute fracture. SOFT TISSUES: Unremarkable. TUBES, LINES AND DEVICES: Endotracheal tube with tip 4.5 cm above the kendy. Enteric tube following the esophagus in the midline, but the distal portion is difficult to identify due to underpenetration of the lower chest. RAD/Chest 1 View (Portable) IMPRESSION: Endotracheal tube with tip 4.5 cm above the kendy. Enteric tube following the esophagus in the midline, but the distal portion is difficult to identify due to underpenetration of the lower chest. Consider a KUB for correlation. Electronically Signed: Angel Hernandes MD at 6:57 EST ,
[2024-03-15 06:09] LABS: Absolute Lymphocyte Count 0.87 X10^3/uL (0.83-4.51); Absolute Neutrophil Count 9.8 X10^3/uL (2.0-7.7); Basophil# 0.02 X10^3/uL; Basophil% 0.2 % (0-1); Hematocrit 38.9 % (40-54); Hemoglobin 12.1 g/dL (13.0-16.5); Lymphocyte # 0.87 X10^3/ul (0.83-4.51); Lymphocyte % 7.6 % (19-41); Mean Corp Hgb Conc 31.1 g/dL (32-36); Mean Corpuscular Hgb 27.3 pg (27.0-32.0); Mean Corpuscular Volume 87.6 fL (80-94); Mean Platelet Vol. 10.5 fl (6.2-12.0); Monocyte# 0.56 X10^3/uL; Monocyte% 4.9 % (0-10); NRBC Flagged by Analyzer 0 % (0-5); Neutrophil # 9.83 X10^3/uL (2.7-7.7); Neutrophil % 86.4 % (47-70); POSITIVE MORPHOLOGY YES; Platelet Count 169 K/mm3 (150-450); RBC Distribution Width CV 15.4 % (11.6-14.6); RBC Distribution Width SD 49.1 fl (35.1-43.9); Red Blood Count 4.44 M/mm3 (4.6-6.2); White Blood Count 11.4 K/mm3 (4.4-11.0)
[2024-03-15 06:10] LABS: Differential Indicated SCAN CRITERIA MET
[2024-03-15 06:44] LABS: Differential Comment SCANNED; Platelet Estimate ADEQUATE (ADEQ); Red Cell Morphology NORM C+C NORMAL (NORM C&C)
[2024-03-15] MEDS: Ipratropium/Albuterol Sulfate 3 ML AMPUL.NEB INHALATION ×4 (06:56→19:11)
[2024-03-15 07:09] LABS: ALB/GLOB Ratio 0.5 RATIO (0.9-2.4); AST(SGOT) 10 U/L (15-37); Alanine Aminotransfer ALT/SGPT 13 U/L (16-61); Albumin, Serum 2.3 g/dL (3.2-5.0); Alkaline Phosphatase 89 U/L (45-117); Anion Gap 6 (5-15); BUN 71 mg/dL (7-18); BUN/Creat Ratio 35.1 RATIO (10-20); Calcium,Total 8.9 mg/dL (8.5-10.1); Chloride 107 mmol/L (98-107); Creatinine, Serum 2.02 mg/dL (0.70-1.30); EST Glomerular Filtration Rate 36 mL/min (>60); Est Glom Filt Rate - Afr Amer 44 mL/min (>60); Estimated Creatinine Clearance 51.07 ml/min; Globulin 5.1 g/dL (2.2-4.2); Glucose 373 mg/dL (74-106); Phosphorus 4.7 mg/dL (2.5-4.9); Potassium 4.1 mmol/L (3.5-5.1); Protein, Total 7.4 g/dL (6.4-8.2); Sodium Level 144 mmol/L (136-145)
--- NOTE | 2024-03-15 07:17 | PN.HOSP_ITS ---
Reason for Visit Reason for Visit: Shortness of breath/hypoxia Subjective Subjective No significant issues overnight other than ongoing blood pressure and blood sugar issues despite changes made yesterday. Patient was given Lasix last evening and this morning and has had good urine output with improvement in his renal function. Did poorly on his spontaneous breathing trial yesterday desatting to 86% having tachypnea and tachycardia. Objective Data Objective Data Vital Signs: Vital Signs Temp Pulse Resp BP Pulse Ox O2 Del Method O2 Flow Rate 97.8 F 62 15 164/63 H 92 Mechanical Ventilator 3 03/15/24 06:00 03/15/24 07:00 03/15/24 07:00 03/15/24 07:00 03/15/24 07:00 03/15/24 07:00 03/14/24 14:00 FiO2 40 03/15/24 07:00 Oxygen Flow Rate (L/min) 3 Oxygen Delivery Method Mechanical Ventilator Weight: 143.9 kg Body Mass Index (BMI) 56.2 Intake & Output: Intake and Output for Last 24 Hours 03/13/24 03/14/24 03/15/24 23:59 23:59 23:59 Intake Total 2510.96 / 2636.36 2862.85 / 2988.15 1938.2133 / 1938.2133 Output Total 1460 / 2060 2000 / 2300 1100 / 1100 Balance 1050.96 / 576.36 862.85 / 688.15 838.2133 / 838.2133 Lab / Micro Data 03/15/24 05:50 03/15/24 05:50 Labs: Laboratory Results - last 24 hr 03/14/24 04:25: WBC 12.0 H, RBC 4.40 L, Hgb 12.0 L, Hct 38.3 L, MCV 87.0, MCH 27.3, MCHC 31.3 L, RDW Std Deviation 48.0 H, RDW Coeff of Jung 15.1 H, Plt Count 178, MPV 11.2, Immature Gran % (Auto) 0.400, Neut % (Auto) 87.8 H, Lymph % (Auto) 7.3 L, Baxter % (Auto) 4.3, Eos % (Auto) 0.0, Baso % (Auto) 0.2, Absolute Neuts (auto) 10.5 H, Absolute Lymphs (auto) 0.87, Nucleated RBC % 0, Differential Comment SCANNED, Platelet Estimate ADEQUATE, RBC Morphology NORM C+C, Sodium 139, Potassium 3.6, Chloride 104, Carbon Dioxide 31.0, Anion Gap 4 L , BUN 66 H, Creatinine 2.48 H, Estim Creat Clear Calc 41.29, Est GFR (MDRD) Af Amer 34 L, Est GFR (MDRD) Non-Af 29 L, BUN/Creatinine Ratio 26.6 H, Glucose 445 H, Calcium 9.2, Phosphorus 1.9 L, Magnesium 2.9 H, Total Bilirubin 0.20, AST 15, ALT 13 L, Alkaline Phosphatase 95, Total Protein 7.5, Albumin 2.2 L, Globulin 5.3 H, Albumin/Globulin Ratio 0.4 L 03/14/24 09:15: Vancomycin Trough 17.8 H 03/14/24 10:04: POC Glucose 426 H 03/14/24 14:30: POC Glucose 362 H 03/14/24 17:33: POC Glucose 356 H 03/14/24 21:51: POC Glucose 378 H 03/15/24 02:12: POC Glucose 363 H 03/15/24 05:50: WBC 11.4 H, RBC 4.44 L, Hgb 12.1 L, Hct 38.9 L, MCV 87.6, MCH 27.3, MCHC 31.1 L, RDW Std Deviation 49.1 H, RDW Coeff of Jung 15.4 H, Plt Count 169, MPV 10.5, Immature Gran % (Auto) 0.900, Neut % (Auto) 86.4 H, Lymph % (Auto) 7.6 L, Baxter % (Auto) 4.9, Eos % (Auto) 0.0, Baso % (Auto) 0.2, Absolute Neuts (auto) 9.8 H, Absolute Lymphs (auto) 0.87, Nucleated RBC % 0, Differential Comment SCANNED, Platelet Estimate ADEQUATE, RBC Morphology NORM C+C, Sodium 144, Potassium 4.1, Chloride 107, Carbon Dioxide 31.0, Anion Gap 6, BUN 71 H, C reatinine 2.02 H, Estim Creat Clear Calc 51.07, Est GFR (MDRD) Af Amer 44 L, Est GFR (MDRD) Non-Af 36 L, BUN/Creatinine Ratio 35.1 H, Glucose 373 H, Calcium 8.9, Phosphorus 4.7, Total Bilirubin 0.30, AST 10 L, ALT 13 L, Alkaline Phosphatase 89, Total Protein 7.4, Albumin 2.3 L, Globulin 5.1 H, Albumin/Globulin Ratio 0.5 L Micro: Microbiology 03/11/24 09:25 Sputum, Induced/Lukens Gram Stain - Final 03/11/24 09:25 Sputum, Induced/Lukens Respiratory Culture - Final Staphylococcus aureus 03/11/24 09:25 Mucosa - Nasopharyngeal Respiratory Panel (PCR) - Final Parainfluenza 4 03/10/24 22:25 Mucosa - Nose SARS-CoV-2, Influenza & RSV (PCR) - Final Radiography Diagnostic Testing: Radiology Impression Chest X-Ray 03/15/24 06:00 IMPRESSION: Endotracheal tube with tip 4.5 cm above the kendy. Enteric tube following the esophagus in the midline, but the distal portion is difficult to identify due to underpenetration of the lower chest. Consider a KUB for correlation. Electronically Signed: Angel Hernandes MD at 6:57 EST , Physical Exam Const no apparent distress and well nourished; Negative for alert, oriented x3, average body habitus or healthy appearing Constitutional Narrative: Morbidly obese, upper, middle-aged, white male, lying in bed intubated and sedated, appears comfortable, nontoxic HEENT head/scalp atraumatic and moist oral mucous membranes HEENT Narrative: ET tube and OG in place Resp normal respiratory effort, no retractions, no use of accessory muscles and clear to auscultation bilaterally Resp Narrative: Wheezing has resolved Auscultation: Negative for rales, rhonchi or wheezes Cardio regular rate, regular rhythm, S1 normal heart sound, S2 normal heart sound, no murmurs, no rub and no clicks; Negative for no gallops Cardio Narrative: S4 gallop noted GI normal to inspection, nondistended, normoactive bowel sounds, soft to palpation, non-tender and non-distended Extremity no clubbing, cyanosis or edema Extremity Narrative: Pedal and radial pulses are 2+, trace bilateral upper and lower extremity edema General Extremity: edema bilateral lower extremity Details: moderate Neuro Neuro Narrative: Patient currently sedated however per nursing patient awakens with sedation vacation and follows all commands Psych Psych Narrative: Unable to assess Assessment & Plan Assessment/Plan (1) Acute on chronic respiratory failure with hypoxia and hypercapnia: (2) MSSA (methicillin susceptible Staphylococcus aureus) pneumonia: (3) Parainfluenza infection: (4) Hyperglycemia: (5) EITAN (acute kidney injury): (6) Hypophosphatemia: PLAN: Plan Acute hypoxic and hypercapnic respiratory failure secondary to MSSA pneumonia/parainfluenza virus infection -Continue Ancef 1 g 3 times daily day 4 of for antibiotics -Continue aerosols -Continue prednisone 40 every 8 and then plan to wean again on Monday to 40 twice daily -Continue mechanical ventilation--> currently on PEEP of 5 and 40% FiO2 with sats in the low 90s -Did poorly on spontaneous breathing trial on 03/14 with desaturation down to 86%, tachypnea, and tachycardia -Continue aggressive pulmonary toilet -Tube feeds are at goal -Will optimize phosphorus to aid in extubation with musculoskeletal mechanics -Pulmonary/critical care following-appreciate input DM-2 with hyperglycemia -Fasting blood sugars are still greater than 300 -Increase basal insulin to 80 twice daily -Increase lispro 20 units every 4 hours -Continue sliding scale -Highly suspect his hyperglycemia is related to his tube feed being at goal in addition to steroid use -Will wean steroids slightly today continue to monitor closely EITAN on CKD stage IIIb -Baseline serum creatinine appears to be between 1.45 and 1.6 -Current serum creatinine now down to 2.02 with a peak of 3.43 despite diuretics -Continues to improve -Home Aldactone is on hold -Repeat lab in a.m. -No need for renal replacement therapy -Renal ultrasound was performed and shows no hydronephrosis -repeat BMP in am Essential hypertension/hyperlipidemia -Has been on his home Coreg and isosorbide however isosorbide is not crushable so on hold -Continue labetalol 40 every 4 -Add hydralazine 10 every 6 -Continue as needed labetalol for elevated blood pressure but will need to monitor heart rate closely -Lasix 60 mg given x 1 this morning will give another 60 mg this afternoon -May need to either increase labetalol or add another antihypertensive scheduled depending on blood pressure trends -Patient is not currently on a statin Toxic/metabolic encephalopathy -Likely related to hypercapnia on presentation -Seems to be following commands well now GERD -Continue IV PPI while intubated Morbid obesity -BMI is 56.2 -Recommend weight loss -Complicates treatment, prognosis, outcomes DVT prophylaxis -Continue subcu Lovenox 40 twice daily due to BMI greater than 40 CODE STATUS -Full code Charges/Coding Visit Charges Inpatient E&M: 20971 Subs Hosp L2
[2024-03-15 07:37] LABS: Bedside Glucose 308 mg/dL (74-106)
[2024-03-15] MEDS: hydrALAZINE 20 MG/ML Vial 10 MG IV ×2 (08:07→12:11)
[2024-03-15] MEDS: Chlorhexidine 15 ML PO (08:24)
[2024-03-15] MEDS: CHLORHEXIDINE GLUC 2% CLOTH 1 EACH TOWELETTE TOPICAL (08:24)
--- NOTE | 2024-03-15 08:45 | PCM.PN.TICU ---
Objective Data Objective Data Vital Signs: Vital Signs Last response Temperature 36.3 C L 03/15/24 08:00 Temperature Source Temporal 03/15/24 08:00 Pulse Rate 65 03/15/24 08:07 Pulse Strength Weak (1+) 03/14/24 22:00 Respiratory Rate 15 03/15/24 08:00 Respiratory Effort Mechanically Ventilated 03/15/24 04:00 Respiratory Depth Normal 03/15/24 04:00 Respiratory Pattern Normal 03/15/24 06:53 Blood Pressure 138/57 H 03/15/24 08:00 Blood Pressure Mean 79 03/15/24 08:00 Blood Pressure Source Monitor 03/15/24 08:00 Blood Pressure Position Semi-Fowlers 03/15/24 08:00 Blood Pressure Location Left Arm 03/15/24 08:00 Pulse Ox 91 03/15/24 08:00 Oxygen Delivery Method Mechanical Ventilator 03/15/24 08:00 Oxygen Flow Rate (L/min) 3 03/14/24 14:00 Fraction of Inspired Oxygen (FIO2) 40 03/15/24 08:00 CLA-BSI maintained Yes 03/12/24 04:00 I&O: I&O Last 24 Hours 03/14/24 03/14/24 03/15/24 11:59 23:59 11:59 Intake Total 1916.33 / 2988.15 946.52 / 2988.15 1951.0133 / 1951.0133 Output Total 1000 / 2300 1000 / 2300 1100 / 1100 Balance 916.33 / 688.15 -53.48 / 688.15 851.0133 / 851.0133 I&O: Total Stay 03/10/24 21:46 thru 03/15/24 08:00 Intake Total 62986.3533 Output Total 6742 Balance 7476.3533 Current Meds Ordered / Administered: Current meds ordered / Administered Generic Name Dose Route Start Last Admin Trade Name Freq PRN Reason Stop Dose Admin Acetaminophen 650 mg 03/12/24 08:24 Acetaminophen 650 Mg/20 Ml Udc GT Q4H PRN PRN Fever, pain 1-10/10 Al Hydroxide/Mg Hydroxide 30 ml 03/12/24 08:25 Mag Hydrox/Al Hydrox/Simeth 30 Ml Udc GT Q6H PRN PRN Gastric Burning Albuterol Sulfate 2.5 mg 03/11/24 01:19 Albuterol 2.5 Mg/3 Ml Vial.Neb. INHALATION Q2H PRN PRN Dyspnea, wheezing Albuterol/Ipratropium 3 ml 03/11/24 01:19 03/15/24 06:56 Ipratropium/Albuterol Sulfate 3 Ml Ampul.Neb INHALATION 3 ml Q4HWA.RT RUBEN Administration Chlorhexidine Gluconate 15 ml 03/12/24 10:00 03/15/24 08:24 Chlorhexidine 15 Ml PO 15 ml BID RUBEN Administration Chlorhexidine Gluconate 1 each 03/12/24 10:00 03/15/24 08:24 Chlorhexidine Gluc 2% Cloth 1 Each Towelette TOPICAL 1 each DAILY RUBEN Administration Enoxaparin Sodium 40 mg 03/11/24 10:00 03/14/24 21:46 Enoxaparin 40 Mg/0.4 Ml Syringe SC 40 mg BID RUBEN Administration Furosemide 60 mg 03/15/24 16:00 Furosemide 100 Mg/10 Ml Vial IV 03/15/24 16:01 X1 ONE Protocol Glucagon 1 mg 03/11/24 01:19 Glucagon 1 Mg/Ml Syringe IM X1 PRN HYPOGLYCEMIA Protocol Guaifenesin 10 ml 03/12/24 08:24 Guaifenesin 10 Ml Udc (200mg/10ml) GT Q4H PRN PRN COUGH Hydralazine HCl 10 mg 03/12/24 22:13 03/14/24 06:25 Hydralazine 20 Mg/Ml Vial IV 10 mg Q8H PRN PRN Administration SBP GREATER THAN 180 Protocol Hydralazine HCl 10 mg 03/15/24 07:50 03/15/24 08:07 Hydralazine 20 Mg/Ml Vial IV 10 mg Q6 RUBEN Administration Protocol Dextrose 250 mls @ 0 mls/hr 03/11/24 01:19 Dextrose 10%-Water IV .Q0M PRN HYPOGLYCEMIA Protocol As Directed Sodium Chloride 100 mls @ 15 mls/hr 03/11/24 02:14 03/12/24 18:24 IV Infused .Q6H40M PRN Infusion Saline Flush Sodium Chloride 100 mls @ 15 mls/hr 03/11/24 02:14 IV .Q6H40M PRN Additional IVPB Infusion Propofol 1,000 mg in 100 mls @ 8.532 mls/hr 03/11/24 09:05 03/15/24 08:00 Diprivan CONT INF 15 mcg/kg/min .[id number] RUBEN 12.8 mls/hr Administration Protocol 10 MCG/KG/MIN Fentanyl 100 mls @ 5 mls/hr 03/11/24 09:05 03/15/24 07:00 CONT INF 125 mcg/hr UD RUBEN 12.5 mls/hr Titration Protocol 50 MCG/HR Pantoprazole Sodium 40 mg/ 110 mls @ 330 mls/hr 03/11/24 17:10 03/14/24 09:21 Sodium Chloride IV Infused DAILY RUBEN Infusion Enteral Nutritional Formula 1,000 mls @ 60 mls/hr 03/12/24 12:30 03/15/24 04:00 Vital Af 1.2 Jonnathan Liquid GT 60 mls/hr .[id number] RUBEN Administration Cefazolin Sodium 1 gm in 50 mls @ 100 mls/hr 03/14/24 22:00 03/15/24 06:16 IV Infused Q8 RUBEN Infusion Insulin Glargine 80 unit 03/15/24 10:00 Insulin Glargine-Yfgn 100 Unit/Ml Pen SC BID RUBEN Insulin Human Lispro 0 unit 03/12/24 23:15 03/15/24 05:40 Insulin Lispro 100 Unit/Ml Insuln.Pen SC 8 u Q4 RUBEN Administration Protocol Insulin Human Lispro 22 unit 03/15/24 10:00 Insulin Lispro 100 Unit/Ml Insuln.Pen SC Q4 RUBEN Labetalol HCl 20 mg 03/13/24 13:22 03/13/24 22:24 Labetalol (Prefilled) 20 Mg/4 Ml Vial IV 20 mg Q4H PRN PRN Administration SBP GREATER THAN 170 Labetalol HCl 40 mg 03/14/24 18:00 03/15/24 05:39 Labetalol 100 Mg/20 Ml Vial IV 40 mg Q4 RUBEN Administration Melatonin 3 mg 03/12/24 08:25 Melatonin 3 Mg Tablet GT QHS PRN PRN INSOMNIA Methylprednisolone 40 mg 03/14/24 22:00 03/15/24 05:39 Methylprednisolone 40 Mg/Ml Vial IV 40 mg Q8 RUBEN Administration Ondansetron HCl 4 mg 03/11/24 01:19 Ondansetron 4 Mg/2 Ml Vial IV Q8H PRN PRN NAUSEA/VOMITING Prochlorperazine Edisylate 5 mg 03/11/24 01:19 Prochlorperazine 10 Mg/2 Ml Vial IV Q4H PRN PRN Breakthrough Nausea/Vomiting Senna/Docusate Sodium 2 tablet 03/12/24 08:25 Senna/Docusate Sodium 1 Tablet GT BID PRN PRN Constipation Sodium Chloride 10 - 40 ml 03/11/24 02:14 03/14/24 21:47 0.9% Saline Lock 10 Ml Syringe IV 40 ml UD PRN Administration SALINE FLUSH Lab / Micro Data 03/15/24 05:50 03/15/24 05:50 Labs: Laboratory Results - last 24 hr 03/14/24 04:25: Differential Comment SCANNED, Platelet Estimate ADEQUATE, RBC Morphology NORM C+C 03/14/24 09:15: Vancomycin Trough 17.8 H 03/14/24 10:04: POC Glucose 426 H 03/14/24 14:30: POC Glucose 362 H 03/14/24 17:33: POC Glucose 356 H 03/14/24 21:51: POC Glucose 378 H 03/15/24 02:12: POC Glucose 363 H 03/15/24 05:38: POC Glucose 308 H 03/15/24 05:50: WBC 11.4 H, RBC 4.44 L, Hgb 12.1 L, Hct 38.9 L, MCV 87.6, MCH 27.3, MCHC 31.1 L, RDW Std Deviation 49.1 H, RDW Coeff of Jung 15.4 H, Plt Count 169, MPV 10.5, Immature Gran % (Auto) 0.900, Neut % (Auto) 86.4 H, Lymph % (Auto) 7.6 L, [place] % (Auto) 4.9, Eos % (Auto) 0.0, Baso % (Auto) 0.2, Absolute Neuts (auto) 9.8 H, Absolute Lymphs (auto) 0.87, Nucleated RBC % 0, Differential Comment SCANNED, Platelet Estimate ADEQUATE, RBC Morphology NORM C+C, Sodium 144, Potassium 4.1, Chloride 107, Carbon Dioxide 31.0, Anion Gap 6, BUN 71 H, Creatinine 2.02 H, Estim Creat Clear Calc 51.07, Est GFR (MDRD) Af Amer 44 L, Est GFR (MDRD) Non-Af 36 L, BUN/Creatinine Ratio 35.1 H, Glucose 373 H, Calcium 8.9, Phosphorus 4.7, Total Bilirubin 0.30, AST 10 L, ALT 13 L, Alkaline Phosphatase 89, Total Protein 7.4, Albumin 2.3 L, Globulin 5.1 H, Albumin/Globulin Ratio 0.5 L Micro: Microbiology 03/11/24 09:25 Sputum, Induced/Lukens Gram Stain - Final 03/11/24 09:25 Sputum, Induced/Lukens Respiratory Culture - Final Staphylococcus aureus Imaging Radiology Impression Chest X-Ray 03/15/24 06:00 IMPRESSION: Endotracheal tube with tip 4.5 cm above the kendy. Enteric tube following the esophagus in the midline, but the distal portion is difficult to identify due to underpenetration of the lower chest. Consider a KUB for correlation. Electronically Signed: Angel Hernandes MD at 6:57 EST , Assessment and Plan . Assessment and plan: Subjective: No acute events o/n. Physical Exam: Gen - NAD, morbidly obese, intubated HEENT - MMM. ETT in place Resp - Diminished BS. Mechanically ventilated CV - RRR. No m/g/r Abd - Soft, NT, ND Ext - No c/c. +edema Skin - No rashes? Neuro - Awake off sedation, following commands I have reviewed the pertinent vital sign, laboratory, and imaging data. ASSESSMENT: # Acute on chronic hypoxic and hypercapneic respiratory failure # AECOPD # Parainfluenza infection # MSSA tracheobronchitis # EITAN on CKD # CHF # Acute encephalopathy # DM/hyperglycemia # MARYLU - not compliant with CPAP # Super morbid obesity (BMI 56) PLAN: -Cont VC vent support. Follow ABG/CXR -Cont daily SAT/SBT, tolerating so far this AM. May be able to extubate if continues to do well -PRN precedex -IV solumedrol, duonebs -Agree with IV diuresis, monitor Cr/UOP -Cefazolin for MSSA in sputum -Uptitrate SQ insulin as needed for glycemic control FEN/GI: TF Proph DVT/GI: Lovenox, protonix Critical Care Time: 50 mins The entirety of this encounter was completed via telemedicine
[2024-03-15] MEDS: Insulin Glargine-YFGN 100 UNIT/ML Pen 80 UNIT SC (09:35)
[2024-03-15] MEDS: Insulin Lispro 100 UNIT/ML INSULN.PEN 22 UNIT SC (09:36)
[2024-03-15] MEDS: Enoxaparin 40 MG/0.4 ML Syringe SC ×2 (09:38→19:43)
[2024-03-15] MEDS: Pantoprazole Sodium 40 MG in 0.9% Normal Saline (100mL MB+) 100 ML 330 MG IV (09:39)
[2024-03-15 10:17] LABS: Bedside Glucose 327 mg/dL (74-106)
[2024-03-15 11:07] LABS: Allen Test Positive; Base Excess 4 mmol/L (-2 to +2); Bicarbonate 29.2 mmol/L (22-26); Blood Gas Specimen Type ART; Mode CPAP/PS; O2 Delivery Device Adult Vent; PEEP 5; PO2 71 mmHG (75-100); SITE L Radial; SO2 93 % (95-99); Total Carbon Dioxide 31 mmol/L; pCO2 49.5 mmHg (35-45); pH 7.38 (7.35-7.45)
[2024-03-15] MEDS: 0.9% Saline Lock 10 ML Syringe IV ×2 (12:12→15:40)
--- NOTE | 2024-03-15 12:27 | PCM.HOSP.N ---
Hospitalist Note Patient extubated today so we will decrease his basal insulin dose dramatically by 50% since tube feeds are off. Also decrease every 4 hours insulin to 10 every 4 hours from 22 every 4 hours and monitor his blood sugars closely.
[2024-03-15] MEDS: Insulin Lispro 100 UNIT/ML INSULN.PEN 10 UNIT SC ×2 (13:43→17:51)
[2024-03-15 14:03] LABS: Bedside Glucose 297 mg/dL (74-106)
[2024-03-15] MEDS: Sodium Chloride 0.65% 1 SPRAY SPRAY.BTL NASAL (15:36)
[2024-03-15] MEDS: Isosorbide Mononitrate 60 MG Tablet PO (16:16)
[2024-03-15 18:18] LABS: Bedside Glucose 221 mg/dL (74-106)
[2024-03-15] MEDS: Carvedilol 25 MG Tablet PO (19:43)
[2024-03-15] MEDS: Insulin Glargine-YFGN 100 UNIT/ML Pen 40 UNIT SC (21:52)
[2024-03-15 22:16] LABS: Bedside Glucose 249 mg/dL (74-106)
[2024-03-16] VITALS (26 sets, daily range): BP systolic 110–154; BP diastolic 54–91; PULSE 56–75; RESP 12–24; TEMP 35.8–36.6; O2SAT 91–99; BMI 56.1
[2024-03-16] MEDS: Insulin Lispro 100 UNIT/ML INSULN.PEN SC ×5 (02:05→21:39)
[2024-03-16] MEDS: Insulin Lispro 100 UNIT/ML INSULN.PEN 10 UNIT SC ×2 (02:06→06:21)
[2024-03-16 02:33] LABS: Bedside Glucose 248 mg/dL (74-106)
[2024-03-16 04:23] LABS: Absolute Neutrophil Count 8.8 X10^3/uL (2.0-7.7); Basophil# 0.01 X10^3/uL; Basophil% 0.1 % (0-1); Hematocrit 37.7 % (40-54); Hemoglobin 11.4 g/dL (13.0-16.5); Lymphocyte % 7.8 % (19-41); Mean Corp Hgb Conc 30.2 g/dL (32-36); Mean Corpuscular Volume 89.1 fL (80-94); Mean Platelet Vol. 10.3 fl (6.2-12.0); Monocyte# 0.51 X10^3/uL; Monocyte% 4.9 % (0-10); NRBC Flagged by Analyzer 0 % (0-5); Neutrophil # 8.83 X10^3/uL (2.7-7.7); Neutrophil % 85.6 % (47-70); Platelet Count 159 K/mm3 (150-450); RBC Distribution Width CV 15.5 % (11.6-14.6); RBC Distribution Width SD 50.3 fl (35.1-43.9); Red Blood Count 4.23 M/mm3 (4.6-6.2); White Blood Count 10.3 K/mm3 (4.4-11.0)
[2024-03-16 04:41] LABS: Anion Gap 4 (5-15); BUN 69 mg/dL (7-18); BUN/Creat Ratio 38.5 RATIO (10-20); Calcium,Total 8.4 mg/dL (8.5-10.1); Chloride 104 mmol/L (98-107); Creatinine, Serum 1.79 mg/dL (0.70-1.30); EST Glomerular Filtration Rate 42 mL/min (>60); Est Glom Filt Rate - Afr Amer 50 mL/min (>60); Estimated Creatinine Clearance 57.63 ml/min; Glucose 308 mg/dL (74-106); Potassium 4.5 mmol/L (3.5-5.1); Sodium Level 139 mmol/L (136-145)
[2024-03-16] MEDS: Cefazolin 1 GM/50 ML BAG IV ×3 (06:22→21:16)
[2024-03-16] MEDS: 0.9% Saline Lock 10 ML Syringe IV ×3 (06:29→13:54)
[2024-03-16 06:48] LABS: Bedside Glucose 241 mg/dL (74-106)
--- NOTE | 2024-03-16 07:53 | PCM.PN.HOSP ---
Reason for Visit Reason for Visit: Shortness of breath/hypoxia Subjective Subjective Patient extubated yesterday and doing well. Currently on nasal cannula 7 L but nursing has just trended back to 4 L. If he remains stable and here we will transfer him to the medical floor. Patient refused his insulin last night sitting the blood sugar in the 300s is normal for him. I explained to him that I realized his normal is 300 however that is not physiologically normal and our goal blood sugar for him is about 150 why he is hospitalized and at home. He struggled a bit with this concept but seem to be more accepting. I did inform him that it would help us clear his infection more quickly and help prevent further infections if he was able to control his blood sugars better at home. Patient has a lot of social issues and social work will be talking to him later in the day. Initially [facility] however I think by the time I left his room he was aware that he was not going to be able to go home but I did inform him that is his choice however I strongly recommend against him going home at this time as he can hardly get out of bed independently. He will need pre-CERT once accepted. Objective Data Objective Data Vital Signs: Vital Signs Temp Pulse Resp BP Pulse Ox O2 Del Method O2 Flow Rate 96.8 F L 66 19 H 151/73 H 95 Venturi Mask 7 03/16/24 04:00 03/16/24 07:00 03/16/24 07:00 03/16/24 07:00 03/16/24 07:00 03/16/24 07:00 03/16/24 07:00 FiO2 40 03/16/24 05:00 Oxygen Flow Rate (L/min) 7 Oxygen Delivery Method Venturi Mask Weight: 143.7 kg Body Mass Index (BMI) 56.1 Intake & Output: Intake and Output for Last 24 Hours 03/14/24 03/15/24 03/16/24 23:59 23:59 23:59 Intake Total 2862.85 / 2988.15 3123.5733 / 3123.5733 50 / 50 Output Total 1999 2975 / 2975 850 / 850 Balance 862.85 / 688.15 148.5733 / 148.5733 -800 / -800 Lab / Micro Data 03/16/24 04:00 03/16/24 04:00 Labs: Laboratory Results - last 24 hr 03/15/24 09:35: POC Glucose 327 H 03/15/24 13:38: POC Glucose 297 H 03/15/24 17:48: POC Glucose 221 H 03/15/24 21:45: POC Glucose 249 H 03/16/24 02:04: POC Glucose 248 H 03/16/24 04:00: WBC 10.3, RBC 4.23 L, Hgb 11.4 L, Hct 37.7 L, MCV 89.1, MCH 27.0, MCHC 30.2 L, RDW Std Deviation 50.3 H, RDW Coeff of Jung 15.5 H, Plt Count 159, MPV 10.3, Immature Gran % (Auto) 1.600 H, Neut % (Auto) 85.6 H, Lymph % (Auto) 7.8 L, [place] % (Auto) 4.9, Eos % (Auto) 0.0, Baso % (Auto) 0.1, Absolute Neuts (auto) 8.8 H, Absolute Lymphs (auto) 0.80 L, Nucleated RBC % 0, Sodium 139, Potassium 4.5, Chloride 104, Carbon Dioxide 31.0, Anion Gap 4 L, BUN 69 H, Creatinine 1.79 H, Estim Creat Clear Calc 57.63, Est GFR (MDRD) Af Amer 50 L, Est GFR (MDRD) Non-Af 42 L, BUN/Creatinine Ratio 38.5 H, Glucose 308 H, Calcium 8.4 L 03/16/24 06:20: POC Glucose 241 H Micro: Microbiology 03/11/24 09:25 Sputum, Induced/Lukens Gram Stain - Final 03/11/24 09:25 Sputum, Induced/Lukens Respiratory Culture - Final Staphylococcus aureus 03/11/24 09:25 Mucosa - Nasopharyngeal Respiratory Panel (PCR) - Final Parainfluenza 4 03/10/24 22:25 Mucosa - Nose SARS-CoV-2, Influenza & RSV (PCR) - Final ABG Data ABG results: ABG 03/15/24 11:02 Specimen Type ART Sample Site L Radial pH 7.38 Bicarbonate Actual 29.2 H Total CO2 31 Base Excess 4 H O2 Saturation 93 L O2 % 40.0 ABG pCO2 49.5 H ABG pO2 71 L Catarino Test Positive O2 Delivery Device Adult Vent Vent Mode CPAP/PS POC PEEP 5 Physical Exam Narrative . Const no apparent distress and well nourished; Negative for alert, oriented x3, average body habitus or healthy appearing Constitutional Narrative: Morbidly obese, upper, middle-aged, white male, sitting up in bed, appears comfortable, nontoxic HEENT head/scalp atraumatic and moist oral mucous membranes Head and Scalp: normocephalic Resp normal respiratory effort, no retractions, no use of accessory muscles and clear to auscultation bilaterally Auscultation: Negative for rales, rhonchi or wheezes Cardio regular rate, regular rhythm, S1 normal heart sound, S2 normal heart sound, no murmurs, no rub and no clicks; Negative for no gallops GI normal to inspection, nondistended, normoactive bowel sounds, soft to palpation and non-tender GI Narrative: Lg protuberant abdomen Extremity no clubbing, cyanosis or edema Extremity Narrative: Pedal and radial pulses are 2+, trace bilateral upper and lower extremity edema Neuro oriented x3, CN's II-XII intact bilaterally, moves all extremities and no focal motor deficits Neuro Narrative: Marked weakness noted Psych Psych Narrative: Somewhat of a strange affect, patient is anxious, very talkative and tends to talk in tangents a bit Assessment & Plan Assessment/Plan (1) Acute on chronic respiratory failure with hypoxia and hypercapnia: (2) MSSA (methicillin susceptible Staphylococcus aureus) pneumonia: (3) Parainfluenza infection: (4) Hyperglycemia: (5) EITAN (acute kidney injury): (6) Hypophosphatemia: PLAN: Plan Acute hypoxic and hypercapnic respiratory failure secondary to MSSA pneumonia/parainfluenza virus infection -Continue Ancef 1 g 3 times daily day of for antibiotics -Continue aerosols -Continue prednisone 40 every 8 and then plan to wean again on Monday to 40 twice daily -Extubated 03/15 and doing well on 4 L N/C -Continue aggressive pulmonary toilet -Strongly encourage OOB and mobility -Pulmonary/critical care following-appreciate input DM-2 with hyperglycemia -Fasting blood sugars this am 308 however the patient refused his insulin last night because he felt a blood sugar of 300 it was close to his normal -I explained to him I would like to see him around 150 and glycemic control is important especially while he is hospitalized but in general due to infection risk with higher blood sugars -Basal insulin decreased to 40 twice daily yesterday due to extubation we will continue this and continue to monitor sugars -Lispro 20 units 3 times daily -Continue sliding scale -Highly suspect his hyperglycemia is related to his tube feed being at goal in addition to steroid use -Will wean steroids slightly today continue to monitor closely EITAN on CKD stage IIIb -Baseline serum creatinine appears to be between 1.45 and 1.6 -Current serum creatinine now down to 1.79 despite diuretics -Continues to improve -Continue to hold home Aldactone -Will give another dose of Lasix today -Repeat lab in a.m. Essential hypertension/hyperlipidemia -Has been on his home Coreg and isosorbide however isosorbide is not crushable so on hold -IV medication discontinued -Restart home Coreg and isosorbide -Continue to monitor blood pressure -1 dose of Lasix 40 mg given as well this morning -Continue as needed hydralazine -Patient is not currently on a statin Toxic/metabolic encephalopathy -Likely related to hypercapnia on presentation -Seems to be following commands well now GERD -Continue IV PPI while intubated Morbid obesity -BMI is 56.1 -Recommend weight loss -Complicates treatment, prognosis, outcomes DVT prophylaxis -Continue subcu Lovenox 40 twice daily due to BMI greater than 40 CODE STATUS -Full code Charges/Coding Visit Charges Inpatient E&M: 35053 Subs Hosp L2
[2024-03-16] MEDS: Ipratropium/Albuterol Sulfate 3 ML AMPUL.NEB INHALATION ×4 (07:54→22:20)
[2024-03-16] MEDS: Furosemide 40 MG/4 ML Vial IV (08:01)
[2024-03-16] MEDS: Carvedilol 25 MG Tablet PO ×2 (08:02→21:17)
[2024-03-16] MEDS: Enoxaparin 40 MG/0.4 ML Syringe SC ×2 (08:03→21:17)
[2024-03-16] MEDS: Sodium Chloride 0.65% 1 SPRAY SPRAY.BTL NASAL (08:03)
[2024-03-16] MEDS: Isosorbide Mononitrate 60 MG Tablet PO (08:03)
[2024-03-16] MEDS: Insulin Glargine-YFGN 100 UNIT/ML Pen 40 UNIT SC ×2 (08:04→21:40)
[2024-03-16] MEDS: CHLORHEXIDINE GLUC 2% CLOTH 1 EACH TOWELETTE TOPICAL (08:17)
--- NOTE | 2024-03-16 09:59 | PCM.PN.TICU ---
Objective Data Objective Data Vital Signs: Vital Signs Last response Temperature 35.8 C L 03/16/24 08:00 Temperature Source Temporal 03/16/24 08:00 Pulse Rate 67 03/16/24 09:00 Pulse Strength Weak (1+) 03/15/24 10:00 Respiratory Rate 18 03/16/24 09:00 Respiratory Effort Non-Labored 03/16/24 08:00 Respiratory Depth Normal 03/16/24 08:00 Respiratory Pattern Normal 03/16/24 08:00 Blood Pressure 131/56 H 03/16/24 09:00 Blood Pressure Mean 74 03/16/24 09:00 Blood Pressure Source Monitor 03/16/24 09:00 Blood Pressure Position Semi-Fowlers 03/16/24 09:00 Blood Pressure Location Right Arm 03/16/24 09:00 Pulse Ox 91 03/16/24 09:30 Oxygen Delivery Method Nasal Cannula 03/16/24 09:30 Oxygen Flow Rate (L/min) 4 03/16/24 09:30 Fraction of Inspired Oxygen (FIO2) 40 03/16/24 05:00 CLA-BSI maintained Yes 03/12/24 04:00 I&O: I&O Last 24 Hours 03/15/24 03/15/24 03/16/24 11:59 23:59 11:59 Intake Total 2543.5733 / 3123.5733 580 / 3123.5733 50 / 50 Output Total 1999 / 5 975 / 2975 850 / 850 Balance 543.5733 / 148.5733 -395 / 148.5733 -800 / -800 I&O: Total Stay 03/10/24 21:46 thru 03/16/24 06:57 Intake Total 41906.9133 Output Total 9460 Balance 2481.9133 Current Meds Ordered / Administered: Current meds ordered / Administered Generic Name Dose Route Start Last Admin Trade Name Freq PRN Reason Stop Dose Admin Acetaminophen 650 mg 03/12/24 08:24 Acetaminophen 650 Mg/20 Ml Udc GT Q4H PRN PRN Fever, pain 1-10/10 Al Hydroxide/Mg Hydroxide 30 ml 03/12/24 08:25 Mag Hydrox/Al Hydrox/Simeth 30 Ml Udc GT Q6H PRN PRN Gastric Burning Albuterol Sulfate 2.5 mg 03/11/24 01:19 Albuterol 2.5 Mg/3 Ml Vial.Neb. INHALATION Q2H PRN PRN Dyspnea, wheezing Albuterol/Ipratropium 3 ml 03/11/24 01:19 03/16/24 07:54 Ipratropium/Albuterol Sulfate 3 Ml Ampul.Neb INHALATION 3 ml Q4HWA.RT RUBEN Administration Carvedilol 25 mg 03/15/24 22:00 03/16/24 08:02 Carvedilol 25 Mg Tablet PO 25 mg BID RUBEN Administration Protocol Chlorhexidine Gluconate 1 each 03/12/24 10:00 03/16/24 08:17 Chlorhexidine Gluc 2% Cloth 1 Each Towelette TOPICAL 1 each DAILY RUBEN Administration Enoxaparin Sodium 40 mg 03/11/24 10:00 03/16/24 08:03 Enoxaparin 40 Mg/0.4 Ml Syringe SC 40 mg BID RUBEN Administration Glucagon 1 mg 03/11/24 01:19 Glucagon 1 Mg/Ml Syringe IM X1 PRN HYPOGLYCEMIA Protocol Guaifenesin 10 ml 03/12/24 08:24 Guaifenesin 10 Ml Udc (200mg/10ml) GT Q4H PRN PRN COUGH Hydralazine HCl 10 mg 03/12/24 22:13 03/14/24 06:25 Hydralazine 20 Mg/Ml Vial IV 10 mg Q8H PRN PRN Administration SBP GREATER THAN 180 Protocol Dextrose 250 mls @ 0 mls/hr 03/11/24 01:19 Dextrose 10%-Water IV .Q0M PRN HYPOGLYCEMIA Protocol As Directed Sodium Chloride 100 mls @ 15 mls/hr 03/11/24 02:14 03/12/24 18:24 IV Infused .Q6H40M PRN Infusion Saline Flush Sodium Chloride 100 mls @ 15 mls/hr 03/11/24 02:14 IV .Q6H40M PRN Additional IVPB Infusion Cefazolin Sodium 1 gm in 50 mls @ 100 mls/hr 03/14/24 22:00 03/16/24 06:57 IV Infused Q8 RUBEN Infusion Insulin Glargine 40 unit 03/16/24 10:00 03/16/24 08:04 Insulin Glargine-Yfgn 100 Unit/Ml Pen SC 40 unit BID RUBEN Administration Insulin Human Lispro 0 unit 03/16/24 11:00 Insulin Lispro 100 Unit/Ml Insuln.Pen SC ACHS [facility] Protocol Insulin Human Lispro 20 unit 03/16/24 11:00 Insulin Lispro 100 Unit/Ml Insuln.Pen SC ACHS [facility] Isosorbide Mononitrate 60 mg 03/15/24 16:00 03/16/24 08:03 Isosorbide Mononitrate 60 Mg Tablet PO 60 mg DAILY [facility] Administration Protocol Losartan Potassium 50 mg 03/16/24 10:00 Losartan Potassium 50 Mg Tablet PO DAILY [facility] Protocol Melatonin 3 mg 03/12/24 08:25 Melatonin 3 Mg Tablet GT QHS PRN PRN INSOMNIA Methylprednisolone 40 mg 03/16/24 10:00 03/16/24 08:04 Methylprednisolone 40 Mg/Ml Vial IV Not Given Q12 [facility] Ondansetron HCl 4 mg 03/11/24 01:19 Ondansetron 4 Mg/2 Ml Vial IV Q8H PRN PRN NAUSEA/VOMITING Prochlorperazine Edisylate 5 mg 03/11/24 01:19 Prochlorperazine 10 Mg/2 Ml Vial IV Q4H PRN PRN Breakthrough Nausea/Vomiting Senna/Docusate Sodium 2 tablet 03/12/24 08:25 Senna/Docusate Sodium 1 Tablet GT BID PRN PRN Constipation Sodium Chloride 10 - 40 ml 03/11/24 02:14 03/16/24 08:14 0.9% Saline Lock 10 Ml Syringe IV 40 ml UD PRN Administration SALINE FLUSH Sodium Chloride 1 spray 03/15/24 14:51 03/16/24 08:03 Sodium Chloride 0.65% 1 [place].Btl NASAL 1 spray TID PRN PRN Administration NASAL DRYNESS Lab / Micro Data 03/16/24 04:00 03/16/24 04:00 Labs: Laboratory Results - last 24 hr 03/15/24 09:35: POC Glucose 327 H 03/15/24 13:38: POC Glucose 297 H 03/15/24 17:48: POC Glucose 221 H 03/15/24 21:45: POC Glucose 249 H 03/16/24 02:04: POC Glucose 248 H 03/16/24 04:00: WBC 10.3, RBC 4.23 L, Hgb 11.4 L, Hct 37.7 L, MCV 89.1, MCH 27.0, MCHC 30.2 L, RDW Std Deviation 50.3 H, RDW Coeff of Jung 15.5 H, Plt Count 159, MPV 10.3, Immature Gran % (Auto) 1.600 H, Neut % (Auto) 85.6 H, Lymph % (Auto) 7.8 L, [place] % (Auto) 4.9, Eos % (Auto) 0.0, Baso % (Auto) 0.1, Absolute Neuts (auto) 8.8 H, Absolute Lymphs (auto) 0.80 L, Nucleated RBC % 0, Sodium 139, Potassium 4.5, Chloride 104, Carbon Dioxide 31.0, Anion Gap 4 L, BUN 69 H, Creatinine 1.79 H, Estim Creat Clear Calc 57.63, Est GFR (MDRD) Af Amer 50 L, Est GFR (MDRD) Non-Af 42 L, BUN/Creatinine Ratio 38.5 H, Glucose 308 H, Calcium 8.4 L 03/16/24 06:20: POC Glucose 241 H ABG Data ABG results: ABG 03/15/24 11:02 Specimen Type ART Sample Site L Radial pH 7.38 Bicarbonate Actual 29.2 H Total CO2 31 Base Excess 4 H O2 Saturation 93 L O2 % 40.0 ABG pCO2 49.5 H ABG pO2 71 L Catarino Test Positive O2 Delivery Device Adult Vent Vent Mode CPAP/PS POC PEEP 5 Assessment and Plan . Assessment and plan: Subjective: Extubated yesterday. Down to 4L NC now. Still has dyspnea but notes substantial improvement from yest Physical Exam: Gen - NAD, morbidly obese HEENT - MMM. Sclera anicteric Resp - Diminished BS, occasional wheeze. Breathing nonlabored CV - RRR. No m/g/r Abd - Soft, NT, ND Ext - No c/c. +edema Skin - No rashes? Neuro - Grossly nonfocal, following commands I have reviewed the pertinent vital sign, laboratory, and imaging data. ASSESSMENT: # Acute on chronic hypoxic and hypercapneic respiratory failure - on home 2-3L NC # AECOPD # Parainfluenza infection # MSSA tracheobronchitis # EITAN on CKD # CHF # Acute encephalopathy # DM/hyperglycemia # MARYLU - not compliant with CPAP # Super morbid obesity (BMI 56) PLAN: -Down to 4L NC, wean to keep sats >90%. Near home baseline O2 now. Encourage IS, mobilization, PT as tolerated -Cont NIV with naps/sleep as tolerated, though pt does not like to use -IV solumedrol (can taper steroids), duonebs -Agree with IV diuresis, monitor Cr/UOP -Cefazolin for MSSA in sputum -Titrate SQ insulin as needed for glycemic control FEN/GI: PO diet Proph DVT/GI: Lovenox, protonix OK to downgrade from ICU status now. We will sign off, but please call us back if any questions or if clinical worsening The entirety of this encounter was completed via telemedicine
--- NOTE | 2024-03-16 11:28 | CASEMGMT ---
Addendum entered by Roxana Hein 03/16/24 11:34: SW provided patient and his brother with a list of halfway facility providers including quality and resource use data and consistent with patient?s preferred geographic region, medical needs, and insurance network were provided from the [employer] Guide.? ? Roxana BRANDON?? Original Note: SW met with patient and his brother Chuck. SW introduced self and role at [facility]. SW explained that patient's insurance would cover a rehab stay. SW explained that once there is an accepting facility they will work on getting insurance to approve him. SW explained in the meantime he would stay at [facility]. Patient and his brother will look over the list. SW will follow up on Monday and patient will need a pre-cert. Plan: SNF pending patient choices, accepting facility, and pre-cert. Roxana BRANDON
[2024-03-16 12:49] LABS: Bedside Glucose 304 mg/dL (74-106)
[2024-03-16] MEDS: Albuterol 2.5 MG/3 ML VIAL.NEB. INHALATION (16:42)
[2024-03-16] MEDS: Insulin Lispro 100 UNIT/ML INSULN.PEN 20 UNIT SC (18:07)
[2024-03-16 22:41] LABS: Bedside Glucose 352 mg/dL (74-106)
[2024-03-17] VITALS (17 sets, daily range): BP systolic 113–167; BP diastolic 55–96; PULSE 58–72; RESP 12–24; TEMP 36.3–36.9; O2SAT 92–99
[2024-03-17 00:38] LABS: Bedside Glucose 412 mg/dL (74-106)
[2024-03-17 06:06] LABS: Hematocrit 38.8 % (40-54); Hemoglobin 12.1 g/dL (13.0-16.5); Mean Corp Hgb Conc 31.2 g/dL (32-36); Mean Corpuscular Hgb 27.1 pg (27.0-32.0); Platelet Count 165 K/mm3 (150-450); RBC Distribution Width CV 14.5 % (11.6-14.6); RBC Distribution Width SD 46.5 fl (35.1-43.9); Red Blood Count 4.46 M/mm3 (4.6-6.2); White Blood Count 10.5 K/mm3 (4.4-11.0)
[2024-03-17] MEDS: Cefazolin 1 GM/50 ML BAG IV ×3 (06:25→21:45)
[2024-03-17 06:52] LABS: Anion Gap 5 (5-15); BUN 65 mg/dL (7-18); BUN/Creat Ratio 43.9 RATIO (10-20); Calcium,Total 8.3 mg/dL (8.5-10.1); Chloride 104 mmol/L (98-107); Creatinine, Serum 1.48 mg/dL (0.70-1.30); EST Glomerular Filtration Rate 52 mL/min (>60); Est Glom Filt Rate - Afr Amer 63 mL/min (>60); Estimated Creatinine Clearance 69.64 ml/min; Glucose 169 mg/dL (74-106); Magnesium 2.7 mg/dL (1.6-2.6); Potassium 4.5 mmol/L (3.5-5.1); Sodium Level 139 mmol/L (136-145)
[2024-03-17] MEDS: Ipratropium/Albuterol Sulfate 3 ML AMPUL.NEB INHALATION ×5 (07:37→22:45)
--- NOTE | 2024-03-17 07:57 | PCM.PN.HOSP ---
Reason for Visit Reason for Visit: Shortness of breath/hypoxia Subjective Subjective Patient transferred to medical surgical floor yesterday and is doing well from a medical standpoint. Is on between 3 and 4 L of oxygen depending on activity level. Tolerating diuretics well. Renal function is almost at baseline. At this point patient is medically ready for discharge to skilled facility and will have to await social science professor assistance tomorrow for placement and precertification from his insurance company. Objective Data Objective Data Vital Signs: Vital Signs Temp Pulse Resp BP Pulse Ox O2 Del Method O2 Flow Rate 97.6 F L 62 24 H 167/96 H 94 Bi-pap 3 03/17/24 02:00 03/17/24 04:05 03/17/24 04:05 03/17/24 02:00 03/17/24 04:05 03/17/24 04:05 03/17/24 02:00 FiO2 30 03/17/24 04:05 Oxygen Flow Rate (L/min) 3 Oxygen Delivery Method Bi-pap Weight: 143.7 kg Body Mass Index (BMI) 56.1 Intake & Output: Intake and Output for Last 24 Hours 03/15/24 03/16/24 03/17/24 23:59 23:59 23:59 Intake Total 3123.5733 / 3123.5733 630 / 870 540 / 540 Output Total 2975 / 2975 2049 Balance 148.5733 / 148.5733 -1420 / -1180 540 / 540 Lab / Micro Data 03/17/24 05:20 03/17/24 05:20 Labs: Laboratory Results - last 24 hr 03/16/24 12:32: POC Glucose 304 H 03/16/24 17:50: POC Glucose 412 H 03/16/24 21:38: POC Glucose 352 H 03/17/24 05:20: WBC 10.5, RBC 4.46 L, Hgb 12.1 L, Hct 38.8 L, MCV 87.0, MCH 27.1, MCHC 31.2 L, RDW Std Deviation 46.5 H, RDW Coeff of Jung 14.5, Plt Count 165, MPV 11.0, Sodium 139, Potassium 4.5, Chloride 104, Carbon Dioxide 30.0, Anion Gap 5, BUN 65 H, Creatinine 1.48 H, Estim Creat Clear Calc 69.64, Est GFR (MDRD) Af Amer 63, Est GFR (MDRD) Non-Af 52 L, BUN/Creatinine Ratio 43.9 H, Glucose 169 H, Calcium 8.3 L, Magnesium 2.7 H Micro: Microbiology 03/11/24 09:25 Sputum, Induced/Lukens Gram Stain - Final 03/11/24 09:25 Sputum, Induced/Lukens Respiratory Culture - Final Staphylococcus aureus 03/11/24 09:25 Mucosa - Nasopharyngeal Respiratory Panel (PCR) - Final Parainfluenza 4 03/10/24 22:25 Mucosa - Nose SARS-CoV-2, Influenza & RSV (PCR) - Final Physical Exam Narrative . Const no apparent distress and well nourished; Negative for alert, oriented x3, average body habitus or healthy appearing Constitutional Narrative: Morbidly obese, upper, middle-aged, white male, sitting up on a bedside commode with therapy services at the bedside, appears comfortable, nontoxic HEENT head/scalp atraumatic and moist oral mucous membranes HEENT Narrative: Mallampati 3-4, no thrush Head and Scalp: normocephalic Resp normal respiratory effort, no retractions, no use of accessory muscles and clear to auscultation bilaterally Auscultation: Negative for rales, rhonchi or wheezes Cardio regular rate, regular rhythm, S1 normal heart sound, S2 normal heart sound, no murmurs, no rub and no clicks; Negative for no gallops Cardio Narrative: GI normal to inspection, nondistended, normoactive bowel sounds, soft to palpation, non-tender and non-distended GI Narrative: Lg protuberant abdomen Extremity Extremity Narrative: Bilateral upper extremity edema has resolved, still bilateral lower extremity edema that is 1+ pitting, no cyanosis or clubbing Neuro moves all extremities and no focal motor deficits Neuro Narrative: Marked weakness noted Speech: speech normal Psych Psych Narrative: Patient extremely talkative, mood is still somewhat labile depending on topic of conversation Assessment & Plan Assessment/Plan (1) Acute on chronic respiratory failure with hypoxia and hypercapnia: (2) MSSA (methicillin susceptible Staphylococcus aureus) pneumonia: (3) Parainfluenza infection: (4) Hyperglycemia: (5) EITAN (acute kidney injury): (6) Hypophosphatemia: PLAN: Plan Acute hypoxic and hypercapnic respiratory failure secondary to MSSA pneumonia/parainfluenza virus infection -Continue Ancef 1 g 3 times daily day 6 of 7 for antibiotics -Continue aerosols -Decrease Solu-Medrol to 40 twice daily--> will plan to wean to 40 daily tomorrow and then should be able to stop prior to discharge -Extubated 03/15 and doing well on 3-4 -Continue aggressive pulmonary toilet -Strongly encourage OOB and mobility -Will give Lasix another 40 mg IV push today -Pulmonary/critical care following-appreciate input DM-2 with hyperglycemia -Blood sugars are much better today with fasting blood sugar this morning being only 169 -Continue basal insulin 40 twice daily -Continue lispro 20 units 3 times daily -Continue sliding scale -Plan for further steroid wean today EITAN on CKD stage IIIb -EITAN resolved -Baseline serum creatinine appears to be between 1.45 and 1.6 -Current serum creatinine now down to 1.48 -Continue to hold home Aldactone and will consider reinitiating tomorrow -Lasix 40 mg another dose today -Repeat lab in a.m. Essential hypertension/hyperlipidemia -Continue home Coreg and isosorbide--> blood pressures fairly well-controlled on this regimen -Continue to monitor blood pressure -will give another dose of IV Lasix today 40 mg -Continue as needed hydralazine -Patient is not currently on a statin Toxic/metabolic encephalopathy -Likely related to hypercapnia on presentation -Seems to be following commands well now GERD -Continue IV PPI while intubated Morbid obesity -BMI is 56.1 -Recommend weight loss -Complicates treatment, prognosis, outcomes DVT prophylaxis -Continue subcu Lovenox 40 twice daily due to BMI greater than 40 CODE STATUS -Full code Charges/Coding Visit Charges Inpatient E&M: 25532 Subs Hosp L2
[2024-03-17] MEDS: Furosemide 40 MG/4 ML Vial IV (07:59)
[2024-03-17] MEDS: Insulin Lispro 100 UNIT/ML INSULN.PEN SC ×3 (08:11→17:39)
[2024-03-17] MEDS: Carvedilol 25 MG Tablet PO ×2 (08:12→21:45)
[2024-03-17] MEDS: Insulin Lispro 100 UNIT/ML INSULN.PEN 20 UNIT SC ×3 (08:12→17:39)
[2024-03-17] MEDS: Isosorbide Mononitrate 60 MG Tablet PO (08:12)
[2024-03-17] MEDS: Enoxaparin 40 MG/0.4 ML Syringe SC ×2 (08:12→21:46)
[2024-03-17] MEDS: Insulin Glargine-YFGN 100 UNIT/ML Pen 40 UNIT SC ×2 (08:13→21:45)
[2024-03-17] MEDS: 0.9% Saline Lock 10 ML Syringe IV ×2 (08:14→21:48)
[2024-03-17 08:55] LABS: Bedside Glucose 160 mg/dL (74-106)
[2024-03-17 11:40] LABS: Bedside Glucose 216 mg/dL (74-106)
[2024-03-17 16:20] LABS: Bedside Glucose 182 mg/dL (74-106)
[2024-03-17 22:51] LABS: Bedside Glucose 143 mg/dL (74-106)
[2024-03-18] VITALS (14 sets, daily range): BP systolic 123–153; BP diastolic 48–63; PULSE 57–71; RESP 12–23; TEMP 36.2–36.6; O2SAT 88–94
--- NOTE | 2024-03-18 02:14 | NURSING ---
pt was on the BSC when he stated that he felt like his blood sugar was low. This RN checked the POC glucose which read 55. Pt was alert and able to tolerate oral intake so this RN gave him 4oz orange juice and peanut butter and crackers. This RN waited 15 minutes after snack was ingested and rechecked POC glucose. IT read 55. This RN gave pt another 4 oz orange juice and more peanut butter and crackers. This RN waited 15 minutes after snack was ingested and rechecked POC glucose. It read 99.
[2024-03-18 02:41] LABS: Bedside Glucose 54 mg/dL (74-106)
[2024-03-18 02:41] LABS: Bedside Glucose 99 mg/dL (74-106)
[2024-03-18 02:41] LABS: Bedside Glucose 55 mg/dL (74-106)
[2024-03-18] MEDS: 0.9% Saline Lock 10 ML Syringe IV (06:09)
[2024-03-18] MEDS: Cefazolin 1 GM/50 ML BAG IV ×3 (06:10→22:31)
[2024-03-18] MEDS: Ipratropium/Albuterol Sulfate 3 ML AMPUL.NEB INHALATION ×4 (06:49→19:31)
[2024-03-18 06:53] LABS: Bedside Glucose 156 mg/dL (74-106)
[2024-03-18 07:38] LABS: Anion Gap 4 (5-15); BUN 69 mg/dL (7-18); BUN/Creat Ratio 44.5 RATIO (10-20); Calcium,Total 8.6 mg/dL (8.5-10.1); Chloride 99 mmol/L (98-107); Creatinine, Serum 1.55 mg/dL (0.70-1.30); EST Glomerular Filtration Rate 49 mL/min (>60); Est Glom Filt Rate - Afr Amer 59 mL/min (>60); Glucose 165 mg/dL (74-106); Potassium 4.6 mmol/L (3.5-5.1); Sodium Level 135 mmol/L (136-145)
[2024-03-18 08:29] LABS: Bedside Glucose 177 mg/dL (74-106)
[2024-03-18] MEDS: Insulin Lispro 100 UNIT/ML INSULN.PEN 20 UNIT SC ×2 (08:49→12:51)
--- NOTE | 2024-03-18 10:12 | CASEMGMT ---
Social Work- SW met with pt to discuss preferences at discharge. SW provided a re-printed list, as pt list is missing. Pt discussed that pt brother is coming at noon, pt will discuss selection with brother, as pt did not care for any facilities within his insurance network list, but denied wanting SW to create a list more than 25 miles out. SW discussed financial responsibilities of choosing a facility outside of insurance network; pt unable to private pay at this time. SW also provided education on HHC vs SNF and care needs . SW will follow up with pt and brother when brother arrives. ERNIE Shepard
[2024-03-18] MEDS: Carvedilol 25 MG Tablet PO ×2 (11:13→22:31)
[2024-03-18] MEDS: Bumetanide 2 MG Tablet PO (11:13)
[2024-03-18] MEDS: Losartan Potassium 50 MG Tablet PO (11:13)
[2024-03-18] MEDS: Insulin Glargine-YFGN 100 UNIT/ML Pen 40 UNIT SC (11:14)
[2024-03-18] MEDS: Isosorbide Mononitrate 60 MG Tablet PO (11:14)
[2024-03-18] MEDS: Enoxaparin 40 MG/0.4 ML Syringe SC ×2 (11:15→22:36)
[2024-03-18 12:11] LABS: Bedside Glucose 200 mg/dL (74-106)
[2024-03-18] MEDS: Insulin Lispro 100 UNIT/ML INSULN.PEN SC (12:50)
--- NOTE | 2024-03-18 13:00 | CASEMGMT ---
Addendum entered by Erin Beck 03/18/24 15:01: [facility] and will start precert. Pt updated. SW remains available to follow. Plan: [facility]; precert pending ERNIE Shepard Original Note: Social Work- SW received notification that pt would like referrals to [facility], [facility], and [facility]. CAMILA notified [facility] of referral request. ERNIE Shepard
--- NOTE | 2024-03-18 13:38 | CASEMGMT ---
Addendum entered by Aida Matute 03/18/24 14:49: [facility] declined d[facility]t no beds. [facility] accepted and [facility] not responded. [facility]. They were updated and asked to submit for precert. Aida Matute DC Planning Asst. Original Note: Discharge Planning Referral sent via [facility] to [facility], and [facility]. Aida Matute DC Planning Asst.
--- NOTE | 2024-03-18 14:38 | NURSING ---
Pt concerned that he does not have his keys and black wallet with a zipper (well used). Reviewed personal belonging list and discussed with Luisa director of ICU. She spoke with Shey that admitted patient and she does not recall the patient having these items. No items in lost and found with security. No items locked in secure areas of ICU or MS3. Items not found with patients other belonings in his room. [employer] cable television installer called [facility] and spoke with Rafiq who was on the call. He does not recall the patient having these items. His recollection was the family was bringing any personal items. Talked with patient. He is going to have his brother double check at the house tomorrow and make sure they are not there. He said the keys are on a clip with multiple keys (not just single gonzalez). Plan for brother to check tomorrow and I will touch base with patient later in day tomorrow to see if they have been found.
--- NOTE | 2024-03-18 16:18 | PN.HOSP_ITS ---
Reason for Visit Reason for Visit: Shortness of breath Subjective Subjective Patient had some hypoglycemic events overnight. I discussed that is likely related as weaning steroids despite us altering his insulin regimen. Will further decrease insulin and steroids. Clinically patient is doing quite well. Seems to be improving with therapy. Has been accepted at long term facility and now waiting for insurance precertification. Objective Data Objective Data Vital Signs: Vital Signs Temp Pulse Resp BP Pulse Ox O2 Del Method O2 Flow Rate 97.9 F 69 18 132/52 H 93 Nasal Cannula 3 03/18/24 15:20 03/18/24 15:34 03/18/24 15:34 03/18/24 15:20 03/18/24 15:20 03/18/24 15:22 03/18/24 15:22 FiO2 30 03/18/24 00:10 Oxygen Flow Rate (L/min) 3 Oxygen Delivery Method Nasal Cannula Weight: 143.7 kg Body Mass Index (BMI) 56.1 Intake & Output: Intake and Output for Last 24 Hours 03/16/24 03/17/24 03/18/24 23:59 23:59 23:59 Intake Total 630 / 870 1540 / 1540 50 / 50 Output Total 2049 / 2049 Balance -1420 / -1180 1540 / 1540 50 / 50 Lab / Micro Data 03/17/24 05:20 03/18/24 06:15 Labs: Laboratory Results - last 24 hr 03/17/24 15:44: POC Glucose 182 H 03/17/24 21:39: POC Glucose 143 H 03/18/24 01:20: POC Glucose 54 L 03/18/24 01:39: POC Glucose 55 L 03/18/24 02:12: POC Glucose 99 03/18/24 06:08: POC Glucose 156 H 03/18/24 06:15: Sodium 135 L, Potassium 4.6, Chloride 99, Carbon Dioxide 32.0, A nion Gap 4 L, BUN 69 H, Creatinine 1.55 H, Estim Creat Clear Calc 66.50, Est GFR (MDRD) Af Amer 59 L, Est GFR (MDRD) Non-Af 49 L, BUN/Creatinine Ratio 44.5 H, G lucose 165 H, Calcium 8.6 03/18/24 07:52: POC Glucose 177 H 03/18/24 11:27: POC Glucose 200 H Micro: Microbiology 03/11/24 09:25 Sputum, Induced/Lukens Gram Stain - Final 03/11/24 09:25 Sputum, Induced/Lukens Respiratory Culture - Final Staphylococcus aureus 03/11/24 09:25 Mucosa - Nasopharyngeal Respiratory Panel (PCR) - Final Parainfluenza 4 03/10/24 22:25 Mucosa - Nose SARS-CoV-2, Influenza & RSV (PCR) - Final Physical Exam Narrative . Const no apparent distress and well nourished; Negative for alert, oriented x3, average body habitus or healthy appearing Constitutional Narrative: Morbidly obese, upper, middle-aged, white male, sitting up in a chair at the bedside, patient appears comfortable, nontoxic, watching television HEENT head/scalp atraumatic and moist oral mucous membranes HEENT Narrative: Mallampati 3, no thrush Head and Scalp: normocephalic Resp normal respiratory effort, no retractions, no use of accessory muscles and clear to auscultation bilaterally Auscultation: Negative for rales, rhonchi or wheezes Cardio regular rate, regular rhythm, S1 normal heart sound, S2 normal heart sound, no murmurs, no rub, no gallops and no clicks Cardio Narrative: GI normal to inspection, nondistended, normoactive bowel sounds, soft to palpation and non-tender GI Narrative: Lg protuberant abdomen Extremity Extremity Narrative: Trace bilateral lower extremity edema, no cyanosis or clubbing Neuro oriented x3, moves all extremities and no focal motor deficits Neuro Narrative: Weakness seems to be slowly improving Speech: speech normal Psych Psych Narrative: Patient extremely talkative, less mood lability today Assessment & Plan Assessment/Plan (1) Acute on chronic respiratory failure with hypoxia and hypercapnia: (2) MSSA (methicillin susceptible Staphylococcus aureus) pneumonia: (3) Parainfluenza infection: (4) Hyperglycemia: (5) EITAN (acute kidney injury): (6) Hypophosphatemia: PLAN: Plan Acute hypoxic and hypercapnic respiratory failure secondary to MSSA pneumonia/parainfluenza virus infection -Continue Ancef 1 g 3 times daily day 7 of 7 for antibiotics -Continue aerosols -Stop IV steroids and start prednisone 40 daily--> would recommend rapid wean -Extubated 03/15 and doing well on 3-4 -Continue aggressive pulmonary toilet -Strongly encourage OOB and mobility -Restart home Bumex -Pulmonary/critical care following-appreciate input -Will need outpatient follow-up after discharge DM-2 -Patient with hypoglycemia overnight -Decrease basal insulin to 30 units twice daily -Decrease lispro to 10 units 3 times daily with meals -Continue sliding scale -Watch closely as we further wean steroids today CKD stage IIIb -Baseline serum creatinine appears to be between 1.45 and 1.6 -Continue to hold home Aldactone and will consider reinitiating tomorrow -Restart home Bumex -Repeat lab in a.m. Essential hypertension/hyperlipidemia -Continue home Coreg and isosorbide--> blood pressure still above high on this regimen -Add losartan 50 mg daily -Continue to monitor blood pressure -Restart home Bumex -Continue as needed hydralazine -Patient is not currently on a statin Toxic/metabolic encephalopathy -Likely related to hypercapnia on presentation -Seems to be following commands well now GERD -Stop PPI Morbid obesity -BMI is 56.1 -Recommend weight loss -Complicates treatment, prognosis, outcomes DVT prophylaxis -Continue subcu Lovenox 40 twice daily due to BMI greater than 40 CODE STATUS -Full code Charges/Coding Visit Charges Inpatient E&M: 79054 Subs Hosp L2
[2024-03-18 16:48] LABS: Bedside Glucose 153 mg/dL (74-106)
[2024-03-18] MEDS: Insulin Lispro 100 UNIT/ML INSULN.PEN 10 UNIT SC (17:00)
[2024-03-18] MEDS: Insulin Glargine-YFGN 100 UNIT/ML Pen 30 UNIT SC (22:35)
[2024-03-18 23:17] LABS: Bedside Glucose 137 mg/dL (74-106)
[2024-03-19] VITALS (10 sets, daily range): BP systolic 100–149; BP diastolic 44–76; PULSE 56–70; RESP 16–22; TEMP 36.4–36.6; O2SAT 92–96
[2024-03-19] MEDS: Albuterol 2.5 MG/3 ML VIAL.NEB. INHALATION (02:27)
--- NOTE | 2024-03-19 05:13 | NURSING ---
pt states that he felt like his blood sugar was low. This RN checked blood sugar and it was 82. Pt requested some peanut butter and crackers to hold him over until breakfast, especially since he had a hypoglycemic episode last night. pt given peanut butter and crackers and educated to report any change in how he is feeling.
[2024-03-19 05:35] LABS: Bedside Glucose 82 mg/dL (74-106)
[2024-03-19 06:01] LABS: Hematocrit 38.4 % (40-54); Hemoglobin 11.8 g/dL (13.0-16.5); Mean Corp Hgb Conc 30.7 g/dL (32-36); Mean Corpuscular Hgb 26.7 pg (27.0-32.0); Mean Corpuscular Volume 86.9 fL (80-94); Mean Platelet Vol. 10.5 fl (6.2-12.0); Platelet Count 159 K/mm3 (150-450); RBC Distribution Width CV 14.4 % (11.6-14.6); RBC Distribution Width SD 45.9 fl (35.1-43.9); Red Blood Count 4.42 M/mm3 (4.6-6.2); White Blood Count 11.9 K/mm3 (4.4-11.0)
[2024-03-19 06:22] LABS: Anion Gap 4 (5-15); BUN 80 mg/dL (7-18); BUN/Creat Ratio 45.7 RATIO (10-20); Calcium,Total 8.4 mg/dL (8.5-10.1); Chloride 101 mmol/L (98-107); Creatinine, Serum 1.75 mg/dL (0.70-1.30); EST Glomerular Filtration Rate 43 mL/min (>60); Est Glom Filt Rate - Afr Amer 52 mL/min (>60); Glucose 76 mg/dL (74-106); Potassium 4.1 mmol/L (3.5-5.1); Sodium Level 136 mmol/L (136-145)
--- NOTE | 2024-03-19 06:30 | PN.HOSP_ITS ---
Reason for Visit Reason for Visit: Diagnoses Other viral infections of unspecified site (03/10/24) Other disorders of phosphorus metabolism (03/10/24) Pneumonia due to Methicillin susceptible Staphylococcus aureus (03/10/24) Acute and chronic respiratory failure with hypoxia (03/10/24) Acute and chronic respiratory failure with hypercapnia (03/10/24) Acute kidney failure, unspecified (03/10/24) Hyperglycemia, unspecified (03/10/24) Subjective Subjective Patient with no acute events overnight per self and per nursing report but he did have several complaints including continued dislike of BiPAP noting that it dries his mouth out and is very difficult to wear because of his quezada in addition to wanting someone from dietary to come into his room directly to go over meals daily but otherwise denies any significant worsening symptoms. Patient understands that neck step once precertification is obtained is transition to skilled facility for ongoing evaluation and treatment. Repeat blood sugar this a.m. in the 150 range and improved following regimen changes the day prior. Patient denies fevers, chills, nausea, emesis, abdominal pain, chest pain or dyspnea. Objective Data Objective Data Vital Signs: Vital Signs Temp Pulse Resp BP Pulse Ox O2 Del Method O2 Flow Rate 97.9 F 56 L 19 H 121/55 H 94 Nasal Cannula 3 03/19/24 03:05 03/19/24 03:05 03/19/24 03:05 03/19/24 03:05 03/19/24 03:05 03/19/24 03:05 03/19/24 03:05 FiO2 30 03/18/24 22:45 Oxygen Flow Rate (L/min) 3 Oxygen Delivery Method Nasal Cannula Weight: 316 lb 12.868 oz Body Mass Index (BMI) 56.1 Intake & Output: Intake and Output for Last 24 Hours 03/17/24 03/18/24 03/19/24 23:59 23:59 23:59 Intake Total 1540 / 1540 100 / 100 50 / 50 Balance 1540 / 1540 100 / 100 50 / 50 Lab / Micro Data 03/19/24 05:12 03/19/24 05:12 Labs: Laboratory Results - last 24 hr 03/18/24 06:08: POC Glucose 156 H 03/18/24 06:15: Sodium 135 L, Potassium 4.6, Chloride 99, Carbon Dioxide 32.0, A nion Gap 4 L, BUN 69 H, Creatinine 1.55 H, Estim Creat Clear Calc 66.50, Est GFR (MDRD) Af Amer 59 L, Est GFR (MDRD) Non-Af 49 L, BUN/Creatinine Ratio 44.5 H, G lucose 165 H, Calcium 8.6 03/18/24 07:52: POC Glucose 177 H 03/18/24 11:27: POC Glucose 200 H 03/18/24 16:10: POC Glucose 153 H 03/18/24 22:28: POC Glucose 137 H 03/19/24 05:11: POC Glucose 82 03/19/24 05:12: WBC 11.9 H, RBC 4.42 L, Hgb 11.8 L, Hct 38.4 L, MCV 86.9, MCH 26.7 L, MCHC 30.7 L, RDW Std Deviation 45.9 H, RDW Coeff of Jung 14.4, Plt Count 159, MPV 10.5, Sodium 136, Potassium 4.1, Chloride 101, Carbon Dioxide 31.0, A nion Gap 4 L, BUN 80 H, Creatinine 1.75 H, Estim Creat Clear Calc 58.90, Est GFR (MDRD) Af Amer 52 L, Est GFR (MDRD) Non-Af 43 L, BUN/Creatinine Ratio 45.7 H, Glucose 76, Calcium 8.4 L Micro: Microbiology 03/11/24 09:25 Sputum, Induced/Lukens Gram Stain - Final 03/11/24 09:25 Sputum, Induced/Lukens Respiratory Culture - Final Staphylococcus aureus 03/11/24 09:25 Mucosa - Nasopharyngeal Respiratory Panel (PCR) - Final Parainfluenza 4 03/10/24 22:25 Mucosa - Nose SARS-CoV-2, Influenza & RSV (PCR) - Final Physical Exam Narrative Physical Examination: General: Awake, alert, oriented x 3 and cooperative, seated upright in the MI bedside chair, no obvious distress, talking with family/friends. Skin: Normal color, normal turgor, no icterus, no cyanosis except occasional stage ecchymoses, abrasion likely from lab draws. HEENT: AT/NC, EOMI, PERRLA, MMM. Lungs: Diminished, greater bases, appropriate effort, no rales, ronchi or wheezing. Heart: Regular rate and rhythm; no gallop, rub audible. Abdomen: Soft, morbidly obese, NTTP, distant BS, no obvious distention but difficult exam with habitus. Extremities: No cyanosis, no clubbing, chronic bilateral lower extremity trace distal edema. Neurological: Patient awake, alert, oriented as noted, cognitive function intact; pupils equally reactive to light and accommodation, cranial nerves grossly normal, moving all 4 extremities, no focal deficits, strength improving, moderately globally decreased Psychiatric: Affect appears normal, talkative, no acute evidence of depressive or anxiety feelings. Assessment & Plan Assessment/Plan (1) Acute on chronic respiratory failure with hypoxia and hypercapnia: (2) MSSA (methicillin susceptible Staphylococcus aureus) pneumonia: (3) Parainfluenza infection: (4) Hyperglycemia: (5) EITAN (acute kidney injury): (6) Hypophosphatemia: PLAN: Plan The patient is a 58 y/o M w/ PMHx: MARYLU noncompliant with PAP therapy, CKD stage III unclear subtype per GFR trending, Morbid obesity, HFpEF, HTN, HLD, Chronic BL LE Lymphedema, COPD/Asthma w/ Chronic Hypoxic Respiratory Failure (3L NC), Diabetes mellitus type II who presents to the [facility] ED with significantly worsening shortness of breath over the last couple days, more severe and worsening starting approximately 3 PM without relief at home with home self- administered nebulizer treatments prompting EMS call who reported patient initially 80% on room air prompting ED evaluation to be cautious. #1. Acute Toxic/Metabolic Encephalopathy secondary to Acute Hypoxic and Hypercarbic Respiratory Failure on Chronic secondary to MSSA pneumonia/parainfluenza virus infection, initially concerned for Decompensated HFpEF, ruled out: Initially managed to the ICU, BiPAP trial, eventually intubated with extubation 03/15/2024, initially treated with IV diuresis but eventually transition to Ancef 1 g 3 times daily with plan for 7 days of antibiotics completed on 03/18/2024, treated also with IV Solu-Medrol started on prednisone 40 mg with plan for rapid taper, continued on aggressive pulmonary toilet, encourage out of bed and head of bed, reinitiated and transition to home Bumex, ICU critical care following initially with sign off upon transition to medical surgical status. If patient precertification is obtained would plan discharge with continued prednisone burst taper with corresponding insulin therapy adjustments, continue oral home Bumex with close weight trending and sodium restriction, strongly encourage CPAP nightly with CBC and BMP trending outpatient. #2. Acute increased creatinine/acute renal insufficiency on Chronic Kidney Disease Stage III, unclear subtype per GFR trending: Admission BUN/Cr 28/1.98, GFR 37, baseline renal function 1.4-1.5 per most recent GFR trending, most recent prior to this 12/17/2023 creatinine 1.56, held Aldactone initially, initially started on IV Lasix as noted with Bumex transition, 03/19/2024 BUN/creatinine 80/1.75, GFR 43. #3. Diabetes mellitus type II with hyperglycemia initially; however, during admission episodes of hypoglycemia noted: Patient with hypoglycemic events 03/18/2024, decreased basal insulin to 30 twice daily, decrease lispro to 10 units 3 times daily with meals, will need to closely continue to follow blood sugars given steroid weaning which may also need to be continued at facility given awaiting precertification, continue ADA diet, accu checks w/ ISS. #4. Normocytic anemia: Initial admission hemoglobin 13.8 however baseline previous to this in January 2024 had been 10-11 range, following admission range primarily 11-12, 03/19/2024 hemoglobin 11.8, MCV 86.9, stable, continue to trend CBC. #5. Chronic COPD/asthma with chronic hypoxic and hypercarbic respiratory failure, complicates #1: Will maintain on oxygen with wean as tolerated to home supplementation, will temporarily hold home inhalers in the interim will maintain on ATC duonebs, PRN albuterol, HOB, IS parameters. #6. Hypertension: Will continue Coreg, isosorbide, recently added losartan, restarted Bumex with as noted transition from initial IV Lasix upon admission given initial overload concerns, given now BP low normal will hold on spironolactone addition but may need to be reconsidered outpatient. PRN hydralazine. #7. Hyperlipidemia: Per current list is not on statin therapy, noted statin intolerance. #8. Bilateral lower extremity chronic lymphedema: Will place neck rossy wraps with elevation. #9. Morbid Obesity: Weight loss and lifestyle changes encouraged. #10. GERD: During admission patient PPI discontinued. #11. DVT prophylaxis: Lovenox. #12. CODE status: Full Code status. Charges/Coding Visit Charges Inpatient E&M: 56372 Init Hosp L2
[2024-03-19] MEDS: Ipratropium/Albuterol Sulfate 3 ML AMPUL.NEB INHALATION ×4 (07:19→19:26)
[2024-03-19] MEDS: predniSONE 20 MG Tablet 40 MG PO (08:00)
[2024-03-19 08:32] LABS: Bedside Glucose 91 mg/dL (74-106)
--- NOTE | 2024-03-19 09:46 | NURSING ---
Reported by brother that the patients keys and wallet were found at home.
[2024-03-19 10:22] LABS: Bedside Glucose 159 mg/dL (74-106)
[2024-03-19] MEDS: Isosorbide Mononitrate 60 MG Tablet PO (11:02)
[2024-03-19] MEDS: Losartan Potassium 50 MG Tablet PO (11:03)
[2024-03-19] MEDS: Enoxaparin 40 MG/0.4 ML Syringe SC (11:03)
[2024-03-19] MEDS: Bumetanide 2 MG Tablet PO (11:03)
[2024-03-19] MEDS: Carvedilol 25 MG Tablet PO ×2 (11:03→21:54)
[2024-03-19] MEDS: Insulin Glargine-YFGN 100 UNIT/ML Pen 30 UNIT SC ×2 (11:05→21:56)
--- NOTE | 2024-03-19 12:27 | CASEMGMT ---
Discharge Planning When snf submitted for auth, they accidently provided hospital name and my phone number as requesting facility. Therefore, we were called [facility] and not [facility]. The following information was forwarded to [facility]; auth # [id number], start date 03/19/24, NRD 03/22/24, fax # [phone], name - [facility]. SW updated. Aida Matute DC Planning Asst.
[2024-03-19] MEDS: Insulin Lispro 100 UNIT/ML INSULN.PEN 10 UNIT SC ×2 (12:49→16:45)
--- NOTE | 2024-03-19 13:09 | TREXTCAR_ITS ---
Diet Diet Order/Speech Therapy: 03/15/24 15:47 Diet: Cardiac: Calorie-Controlled Food consistency:: Regular Liquid Consistency:: Regular/Thin Dietary Modifications:: Consistent Carbohydrate How many daily calories?: 1800 calorie Routine Orders/Code Status Enema Type: Fleetz Enema Frequency: Daily PRN Suppository Type: Dulcolax 10mg Suppository Frequency: Daily PRN Routine Lab Work: CBC (in 1 week.) and BMP (in 1 week.) Code Status: Full Code DC O2, CPAP, BIPAP needs PSN CPAP & BiPAP: BiPAP & CPAP Settings per PSN Mode BiPAP 03/18/24 22:45 Bipap Delivery Device Face Mask 03/18/24 22:45 BiPAP Inspiratory Pressure 12 03/18/24 22:45 BiPAP Expiratory Pressure 5 03/18/24 22:45 BiPAP Rate 12 03/18/24 22:45 Fraction of Inspired Oxygen ( 30 03/18/24 22:45 FIO2) Home O2 Discharge instructions: Yes Type of respiratory needs?: Oxygen (3) Oxygen frequency: Continuous Continuous oxygen liters per minute: 3 and BiPAP BiPAP oxygen liters per minute: IPAP 12/EPAP 5, 30% FiO2, high pressure alarm 30, low pressure alarm 2. BiPAP instructions: IPAP 12/EPAP 5, 30% FiO2, high pressure alarm 30, low pressure alarm 2. Wound(s) Bilateral lower extremities: Wound Type: Stasis Ulcer R Radial: Wound Type: Puncture Suggestions for Active Care Change Position every (hours): 2 Hours to sit in a chair: 6 Times a day to sit in chair: 3 Therapies Weight Bearing: Full weight bearing Physical Therapy: Eval and Treat Occupational Therapy: Eval and Treat Problem/Diagnosis (1) Acute on chronic respiratory failure with hypoxia and hypercapnia: Status: Chronic Code(s): J96.21 - Acute and chronic respiratory failure with hypoxia; J96.22 - Acute and chronic respiratory failure with hypercapnia (2) MSSA (methicillin susceptible Staphylococcus aureus) pneumonia: Status: Acute Code(s): J15.211 - Pneumonia due to Methicillin susceptible Staphylococcus aureus (3) Parainfluenza infection: Status: Acute Code(s): B34.8 - Other viral infections of unspecified site (4) Hyperglycemia: Status: Acute Code(s): R73.9 - Hyperglycemia, unspecified (5) EITAN (acute kidney injury): Status: Acute Code(s): N17.9 - Acute kidney failure, unspecified (6) Hypophosphatemia: Status: Acute Code(s): E83.39 - Other disorders of phosphorus metabolism Comment: DISCHARGE DIAGNOSES: #1. Acute Toxic/Metabolic Encephalopathy secondary to Acute Hypoxic and Hypercarbic Respiratory Failure on Chronic secondary to MSSA pneumonia/parainfluenza virus infection and Acute on Chronic COPD/Asthma exacerbation, initially concerned for Decompensated HFpEF, ruled out #2. Acute increased creatinine/acute renal insufficiency on Chronic Kidney Disease Stage III, unclear subtype per GFR trending #3. Diabetes mellitus type II with hyperglycemia initially; however, during admission episodes of hypoglycemia noted #4. Chronic Normocytic anemia #5. Hypertension #6. Hyperlipidemia #7. Bilateral lower extremity chronic lymphedema #8. Morbid Obesity #9. GERD Allergies/Procedures Done in Hospital Allergies amlodipine (From Norvasc) Allergy (Verified 03/10/24 21:59) Other apraclonidine Allergy (Verified 03/10/24 21:59) Other diltiazem Allergy (Verified 03/10/24 21:59) Unknown doxycycline Allergy (Verified 03/10/24 21:59) Other enalapril Allergy (Verified 03/10/24 21:59) Other glimepiride Allergy (Verified 03/10/24 21:59) Other glipizide (From Glucotrol) Allergy (Verified 03/10/24 21:59) Other hydralazine Allergy (Verified 03/10/24 21:59) Other ibuprofen Allergy (Verified 03/10/24 21:59) Other Influenza Virus Vaccines Allergy (Verified 03/10/24 21:59) Unknown latex Allergy (Verified 03/10/24 21:59) Other lisinopril Allergy (Verified 03/10/24 21:59) Other metoprolol Allergy (Verified 03/10/24 21:59) Other montelukast Allergy (Verified 03/10/24 21:59) Other blurred vision Penicillins Allergy (Verified 03/10/24 21:59) Other pravastatin Allergy (Verified 03/10/24 21:59) Other prednisone Allergy (Verified 03/10/24 21:59) Other propranolol Allergy (Verified 03/10/24 21:59) Unknown simvastatin (From Zocor) Allergy (Verified 03/10/24 21:59) Other sulfamethoxazole (From Bactrim) Allergy (Verified 03/10/24 21:59) Other trimethoprim (From Bactrim) Allergy (Verified 03/10/24 21:59) Other Procedures: EKG Type of Care/Length of Stay Estimated LOS: Convalescent Care Less Than 30 days Type of Care Needed: Skilled Rehab Potential: Good Prognosis: Good Additional Orders/Day of Discharge Additional Orders: See additional information section for orders. Day of Discharge: 03/19/24 Dietary and Speech Recommendations Dietitian Recommendations/Changes: Continue 1800 calorie cardiac/consistent carbohydrate diet with consistency/texture per [employer]IC[employer]. Ongoing diet education for weight loss and blood glucose management. Discharge Plan Admission Admit Date/Time: 03/10/24 23:52 Primary Reason for Your Visit: Encephalopathy, Acute on Chronic Resp Failure, MSSA PNA, Viral illness Attending Provider: Jackie Caba Primary Care Provider: Armin Chau Consulting Providers: Jackie Caba; Jai Chua; Nic Avelar; Mina Badillo; Jamal Anderson; Grover Mena; Son Thomas; Allen Lomas; Drew Dave; Nanci Slater; Joe Celaya; Juan Carlos Ferraro; Dax Soler; Stephenie Yost; Kathe Henley; Bill Keith; Josias Webber; Hermilo Iglesias; Cricket Bonner; Tessie Gonzales; Oh English; Oliverio Kuo; Danny Kline; Rosalia Farmer Instructions Patient Instructions: Pneumonia Community Acquired Additional Instructions / Restrictions: ADDITIONAL FOLLOW-UP RECOMMENDATIONS: #1. Acute Toxic/Metabolic Encephalopathy secondary to Acute Hypoxic and Hypercarbic Respiratory Failure on Chronic secondary to MSSA pneumonia/parainf luenza virus infection with concurrent Acute on Chronic COPD/asthma Exacerbation, initially concerned for Decompensated HFpEF, ruled out: --Initially managed to the ICU, BiPAP trial, eventually intubated with extubation 03/15/2024. --Treated with Ancef 1 g 3 times daily with plan for 7 days of antibiotics completed on 03/18/2024. --Treated also with IV Solu-Medrol with transition to oral prednisone 40 mg with plan for rapid taper at discharge. --Encourage continued aggressive pulmonary toilet, OOB, HOB and IS. --Continue q HS BIPAP and with naps PRN w/ settings IPAP 12/EPAP 5, 30% FiO2, high pressure alarm 30, low pressure alarm 2. --Follow-up with PCP and pulmonary medicine as requested. #2. Acute increased creatinine/acute renal insufficiency on Chronic Kidney Disease Stage III, unclear subtype per GFR trending: --Admission BUN/Cr 28/1.98, GFR 37, baseline renal function 1.4-1.5 per most recent GFR trending, most recent prior to this 12/17/2023 creatinine 1.56, held Aldactone initially, initially started on IV Lasix pulse dose eventually transitioned back to home Bumex transition. --03/19/2024 BUN/creatinine 80/1.75, GFR 43. --Repeat outpatient SNF BMP as requested. #3. Diabetes mellitus type II with hyperglycemia initially; however, during admission episodes of hypoglycemia noted: --Upon admission patient with elevated blood sugars in the infectious settings. --Eventually patient with hypoglycemic events 03/18/2024 with decreased basal insulin to 30 twice daily, decreased lispro to 10 units 3 times daily with meals which will need to be continued to be monitored and insulin therapies adjusted as weaned off steroids. --Continue ADA diet, accu checks w/ ISS. #4. Normocytic anemia: --Initial admission hemoglobin 13.8 however baseline previous to this in [facility] 2023 had been 10-11 range, following admission range primarily 11-12. --03/19/2024 hemoglobin 11.8, MCV 86.9. --Repeat outpatient SNF CBC as requested. #5. Hypertension: --Continued on coreg, isosorbide, recently added losartan, restarted Bumex. --Upon presentation spironolactone held. This was not restarted secondary to normal range BP but we request continued BP monitoring and if BP above goal this may be added back if appropropriate. #6. Bilateral lower extremity chronic lymphedema: --Encourage continued BL LE elevation. --Continue SNUG rossy wraps to BL LE, toes to knee, overlapping, no skin showing, redo q shift and PRN if comes undone. Discharge Orders/Prescriptions Prescriptions: New bumetanide 2 mg Tablet 2 mg PO DAILY Qty: 0 0RF albuterol sulfate 2.5 mg /3 mL (0.083 %) Solution For Nebulization 2.5 mg inhalation Q2H PRN PRN (Reason: Dyspnea, wheezing) Qty: 0 0RF guaifenesin 100 mg/5 mL Liquid 100 mg G-tube Q4H PRN PRN (Reason: Cough) Qty: 0 0RF losartan 50 mg Tablet 50 mg PO DAILY Qty: 0 0RF ipratropium-albuterol 0.5 mg-3 mg(2.5 mg base)/3 mL Solution For Nebulization 3 ml inhalation Q4HWA.RT 2 Days Qty: 0 0RF prednisone 20 mg Tablet 40 mg PO BREAKFAST 5 Days Qty: 10 0RF sennosides-docusate sodium [Stimulant Laxative Plus] 8.6-50 mg Tablet 2 tab G-tube BID PRN PRN (Reason: Constipation) Qty: 0 0RF melatonin 3 mg Tablet 3 mg PO QHS PRN PRN (Reason: Insomnia) Qty: 0 0RF isosorbide mononitrate 60 mg Tablet Extended Release 24 Hr 60 mg PO DAILY Qty: 0 0RF alum-mag hydroxide-simeth [Mag-Al Plus Extra Strength] 400-400-40 mg/5 mL Suspension 30 ml PO Q6H PRN PRN (Reason: Gastric Burning) Qty: 0 0RF Deep Sea Nasal 0.65 % Aerosol,[place] 1 spray NASAL TID PRN PRN (Reason: NASAL DRYNESS) Qty: 0 0RF insulin lispro [Humalog KwikPen Insulin] 100 unit/mL Insulin Pen 10 unit subcut TIDCM Qty: 0 0RF insulin lispro [Humalog KwikPen Insulin] 100 unit/mL Insulin Pen See Protocol subcut ACHS Qty: 0 0RF Protocol: 5. Sliding Scale Insulin High Dosing Condition: 150-209 mg/dl = 3 units Condition: 210-259 mg/dl = 6 units Condition: 260-324 mg/dl = 9 units Condition: 325-374 mg/dl = 12 units Condition: 375-409 mg/dl = 14 units Condition: 410-449 mg/dl = 16 units Condition: Greater than 449 call physician Protocol Text: Suggested for: - Patients on Total Daily Insulin Dose of 81-120 units - Very insulin resistant patients HIGH DOSING ALGORITHM insulin glargine-yfgn 100 unit/mL (3 mL) Insulin Pen 30 unit subcut BID Qty: 0 0RF Continued omeprazole magnesium 20 MG tablet,delayed release (DR/EC) 20 mg PO DAILY hydrocortisone 1 APPLIC ointment 1 applic TOPICAL TID liraglutide [Victoza 3-Benja] 0.6 mg/0.1 mL (18 mg/3 mL) Pen Injector 1.8 mg SUBCUT DAILY gentamicin 0.1 % ointment 1 applic topical DAILY PRN (Reason: skin irritation) carvedilol 25 mg tablet 25 mg PO BID hydrocortisone 2.5 % cream 1 applic topical DAILY PRN (Reason: skin irritation) cetirizine [24Hour Allergy] 10 mg tablet 10 mg PO DAILY PRN (Reason: allergy symptoms) (DME) portable nebulizer See Rx Instructions .Route .MEDSUPPLY Qty: 1 0RF Rx Instructions: As directed ipratropium-albuterol 0.5 mg-3 mg(2.5 mg base)/3 mL solution for nebulization 3 ml INHALATION Q4H PRN (Reason: shortness of breath or wheezing) Qty: 180 3RF Held spironolactone 25 mg tablet 25 mg PO DAILY Hold Instructions: Resume on 03/26/24. Continue to reassess BP and if appropriate may resume otherwise may need to D/C. Discontinued bumetanide 1 MG tablet 1 mg PO QHS bumetanide 1 mg tablet 2 mg PO .am Levemir FlexPen 100 unit/mL (3 mL) insulin pen 50 unit subcut DAILY Patient Comments: PT TAKES 50 UNITS AT BREAKFAST AND 45 UNITS AT BED TIME Levemir FlexPen 100 unit/mL (3 mL) insulin pen 45 unit subcut QHS Patient Comments: PT TAKES 50 UNITS AT BREAKFAST AND 45 UNITS AT BED TIME insulin aspart U-100 [Novolog FlexPen U-100 Insulin] 100 unit/mL (3 mL) insulin pen 40 unit subcut 4X/DAY Patient Comments: PT STATES HE TAKES SLIDING SCALE. STATES IF IT IS 200+, HE TAKES 1 UNIT PER BS NUMBER, PLUS THE 40 UNITS. PER [facility], RX STATES MAX 50 UNITS isosorbide mononitrate 30 mg tablet extended release 24 hr 30 mg PO DAILY Qty: 30 1RF Referrals / Follow Up: Armin Chau DO [Primary Care Provider] - (Follow-up within 3-5 days of discharge if SNF stay duration lengthy in addition to follow-up within 1-2 days of SNF discharge.) Heide Sifuentes [facility], [facility] [Med Staff - Adv Practice Prof] - (Please follow-up within 2-4 weeks.) Disposition Disposition (needs filled in before D/C Order can be placed): [facility]
--- NOTE | 2024-03-19 13:14 | DS.PCM_ITS ---
Providers Date of Admission: 03/10/24 Date of Discharge: 03/19/24 Primary Care Physician: Dr. Armin Chau, DO Consultations 03/11/24 01:19 Consult: Hvac Mechanical Engineer / Pulmonary Medicine Routine Consulting Provider: Intensivists/Pulmonary Med Reason for Consult: Acute on Chronic Resp Failure, HF Exac EMERGENT Consult: No MD Notified: Yes Date Notified: 03/11/24 Time Notified: 06:01 Method of Notification: Text 03/11/24 07:37 Consult: Onc/Wound/video game programmer Routine Comment: Reason for Consult:: bilat leg wounds Reason For Visit: ACUTE ON CHRONIC RESPIRATORY FAILURE HF EXAC Diagnosis Discharge Diagnosis (1) Acute on chronic respiratory failure with hypoxia and hypercapnia: Status: Chronic Code(s): J96.21 - Acute and chronic respiratory failure with hypoxia; J96.22 - Acute and chronic respiratory failure with hypercapnia (2) MSSA (methicillin susceptible Staphylococcus aureus) pneumonia: Status: Acute Code(s): J15.211 - Pneumonia due to Methicillin susceptible Staphylococcus aureus (3) Parainfluenza infection: Status: Acute Code(s): B34.8 - Other viral infections of unspecified site (4) Hyperglycemia: Status: Acute Code(s): R73.9 - Hyperglycemia, unspecified (5) EITAN (acute kidney injury): Status: Acute Code(s): N17.9 - Acute kidney failure, unspecified (6) Hypophosphatemia: Status: Acute Code(s): E83.39 - Other disorders of phosphorus metabolism Plan: DISCHARGE DIAGNOSES: #1. Acute Toxic/Metabolic Encephalopathy secondary to Acute Hypoxic and Hypercarbic Respiratory Failure on Chronic secondary to MSSA pneumonia/parainfluenza virus infection and Acute on Chronic COPD/Asthma exacerbation, initially concerned for Decompensated HFpEF, ruled out #2. Acute increased creatinine/acute renal insufficiency on Chronic Kidney Disease Stage III, unclear subtype per GFR trending #3. Diabetes mellitus type II with hyperglycemia initially; however, during admission episodes of hypoglycemia noted #4. Chronic Normocytic anemia #5. Hypertension #6. Hyperlipidemia #7. Bilateral lower extremity chronic lymphedema #8. Morbid Obesity #9. GERD Medications at Discharge Home Medications hydrocortisone 1 % topical ointment 1 applic topical TID excoriated areas 06/01/19 omeprazole magnesium 20 mg tablet,delayed release 20 mg PO DAILY stomach 06/01/19 portable nebulizer #1 ea 12/31/20 ipratropium 0.5 mg-albuterol 3 mg (2.5 mg base)/3 mL nebulization soln 3 ml inhalation Q4H PRN shortness of breath or wheezing #180 mL 01/06/21 liraglutide 0.6 mg/0.1 mL (18 mg/3 mL) subcutaneous pen injector (Victoza 3-Benja) 1.8 mg subcut DAILY diabetes 06/29/21 carvedilol 25 mg tablet 25 mg PO BID heart 12/14/23 cetirizine 10 mg tablet (24Hour Allergy) 10 mg PO DAILY PRN allergy symptoms 12/14/23 gentamicin 0.1 % topical ointment 1 applic topical DAILY PRN skin irritation 12/14/23 hydrocortisone 2.5 % topical cream 1 applic topical DAILY PRN skin irritation 12/14/23 spironolactone 25 mg tablet 25 mg PO DAILY water pill 12/14/23 albuterol sulfate 2.5 mg/3 mL (0.083 %) solution for nebulization 2.5 mg (3 mL) inhalation Q2H PRN PRN Dyspnea, wheezing #0 mL 03/19/24 aluminum-mag hydroxide-simethicone 400 mg-400 mg-40 mg/5 mL oral susp (Mag-Al Plus Extra Strength) 30 ml PO Q6H PRN PRN Gastric Burning #0 mL 03/19/24 bumetanide 2 mg tablet 2 mg PO DAILY #0 tabs 03/19/24 guaifenesin 100 mg/5 mL oral liquid 100 mg (5 mL) G-tube Q4H PRN PRN Cough #0 mL 03/19/24 insulin glargine-yfgn 100 unit/mL (3 mL) subcutaneous pen 30 unit (0.3 mL) subcut BID #0 mL 24 insulin lispro 100 unit/mL subcutaneous pen (Humalog KwikPen (U-100) Insulin) 10 unit (0.1 mL) subcut TIDCM #0 mL 03/19/24 insulin lispro 100 unit/mL subcutaneous pen (Humalog KwikPen (U-100) Insulin) See Protocol subcut ACHS #0 mL 03/19/24 ipratropium 0.5 mg-albuterol 3 mg (2.5 mg base)/3 mL nebulization soln 3 ml inhalation Q4HWA.RT 2 days #0 mL 03/19/24 isosorbide mononitrate 60 mg tablet,extended release 24 hr 60 mg PO DAILY #0 tabs 03/19/24 losartan 50 mg tablet 50 mg PO DAILY #0 tabs 03/19/24 melatonin 3 mg tablet 3 mg PO QHS PRN PRN Insomnia #0 tabs 03/19/24 prednisone 20 mg tablet 40 mg (2 x 20 mg) PO BREAKFAST 5 days #10 tabs 03/19/24 sennosides 8.6 mg-docusate sodium 50 mg tablet (Stimulant Laxative Plus) 2 tab G-tube BID PRN PRN Constipation #0 tabs 03/19/24 sodium chloride 0.65 % nasal spray aerosol (Deep Sea Nasal) 1 spray NASAL TID PRN PRN NASAL DRYNESS #0 mL 03/19/24 Hospital Course Operations None Procedures EKG Summary of Care Provided Minutes Spent on Discharge: 35 Hospital Course: The patient is a 58 y/o M w/ PMHx: MARYLU noncompliant with PAP therapy, CKD stage III unclear subtype per GFR trending, Morbid obesity, HFpEF, HTN, HLD, Chronic BL LE Lymphedema, COPD/Asthma w/ Chronic Hypoxic Respiratory Failure (3L NC), Diabetes mellitus type II who presented to the [facility] ED with significantly worsening shortness of breath over the last couple days, more severe and worsening starting approximately 3 PM without relief at home with home self- administered nebulizer treatments prompting EMS call who reported patient initially 80% on room air prompting ED evaluation to be cautious. Initially managed to the ICU, BiPAP trial, eventually intubated with extubation 03/15/2024, initially treated with IV diuresis but eventually transition to Ancef 1 g 3 times daily with plan for 7 days of antibiotics completed on 03/18/2024, treated also with IV Solu-Medrol started on prednisone 40 mg with plan for rapid taper, continued on aggressive pulmonary toilet, encourage out of bed and head of bed, reinitiated and transition to home Bumex, ICU critical care following initially with sign off upon transition to medical surgical status. Pulmonary recommendation for upon SNF transition prednisone burst taper with corresponding insulin therapy adjustments, continue oral home Bumex, encourage PAP nightly with CBC and BMP trending outpatient. Admission BUN/Cr 28/1.98, GFR 37, baseline renal function 1.4-1.5 per most recent GFR trending, most recent prior to this 12/17/2023 creatinine 1.56, held Aldactone initially, initially started on IV Lasix as noted with Bumex transition, 03/19/2024 BUN/creatinine 80/1.75, GFR 43. Patient with hypoglycemic events 03/18/2024, decreased basal insulin to 30 twice daily, decrease lispro to 10 units 3 times daily with meals, will need to closely continue to follow blood sugars given steroid weaning which may also need to be continued at facility given awaiting precertification, continue ADA diet, accu checks w/ ISS. Initial admission hemoglobin 13.8 however baseline previous to this in January 2024 had been 10-11 range, following admission range primarily 11-12, 03/19/2024 hemoglobin 11.8, MCV 86.9, stable, continue to trend CBC. Given clinical improvement from respiratory standpoint, stable blood sugars with adjustments as noted with precertification obtained on 03/15/2024 patient discharged to group home facility with ongoing treatments and evaluations as noted with plan follow-up labs also was noted with ongoing PT and physical therapy with follow-up with pulmonary medicine and PCP. Weight / BMI Weight Weight: 316 lb 12.868 oz Body Mass Index (BMI) 56.1 ABG / Lab / Microbiology Data 03/19/24 05:12 03/19/24 05:12 Laboratory: Laboratory Results - last 24 hr 03/18/24 16:10: POC Glucose 153 H 03/18/24 22:28: POC Glucose 137 H 03/19/24 05:11: POC Glucose 82 03/19/24 05:12: WBC 11.9 H, RBC 4.42 L, Hgb 11.8 L, Hct 38.4 L, MCV 86.9, MCH 26.7 L, MCHC 30.7 L, RDW Std Deviation 45.9 H, RDW Coeff of Jung 14.4, Plt Count 159, MPV 10.5, Sodium 136, Potassium 4.1, Chloride 101, Carbon Dioxide 31.0, A nion Gap 4 L, BUN 80 H, Creatinine 1.75 H, Estim Creat Clear Calc 58.90, Est GFR (MDRD) Af Amer 52 L, Est GFR (MDRD) Non-Af 43 L, BUN/Creatinine Ratio 45.7 H, Glucose 76, Calcium 8.4 L 03/19/24 07:52: POC Glucose 91 03/19/24 10:02: POC Glucose 159 H Microbiology: Microbiology 03/11/24 09:25 Sputum, Induced/Lukens Gram Stain - Final 03/11/24 09:25 Sputum, Induced/Lukens Respiratory Culture - Final Staphylococcus aureus 03/11/24 09:25 Mucosa - Nasopharyngeal Respiratory Panel (PCR) - Final Parainfluenza 4 03/10/24 22:25 Mucosa - Nose SARS-CoV-2, Influenza & RSV (PCR) - Final D/C Instructions DC O2, CPAP, BIPAP Needs PSN CPAP & BiPAP: BiPAP & CPAP Settings per PSN Mode BiPAP 03/18/24 22:45 Bipap Delivery Device Face Mask 03/18/24 22:45 BiPAP Inspiratory Pressure 03/18/24 22:45 BiPAP Expiratory Pressure 5 03/18/24 22:45 BiPAP Rate 12 03/18/24 22:45 Fraction of Inspired Oxygen ( 30 03/18/24 22:45 FIO2) Home O2 Discharge instructions: Yes Type of respiratory needs?: Oxygen (3) Oxygen frequency: Continuous Continuous oxygen liters per minute: 3 and BiPAP BiPAP oxygen liters per minute: IPAP 12/EPAP 5, 30% FiO2, high pressure alarm 30, low pressure alarm 2. BiPAP instructions: IPAP 12/EPAP 5, 30% FiO2, high pressure alarm 30, low pressure alarm 2. DC home with Oxygen: Yes Home O2 MD Review: I have reviewed the oxygen testing, and the patient qualifies for home oxygen equipment and portability. The patient is mobile in the home and the community. Meaningful Use Info Meaningful Use Meaningful Use Diagnoses (Choose all that apply): None applicable Ischemic Stroke Statin Dosing Therapy Reference: STATIN DOSE THERAPY REFERENCE: * Patients > 75 years receive moderate or high dose statin therapy. * Patients 75 years or YOUNGER should receive HIGH intensity statin dose unless contraindicated. You will be required to document reason for non-treatment if statin daily dose does not meet guidelines. HIGH DOSE STATIN THERAPY DAILY Atorvastatin > than or = to 40 mg Rosuvastatin > than or = to 20 mg Amlodipine + Atorvastatin > than or = to 2.5/40 mg Ezetimibe + Simvastatin 10/80 mg Simvastatin 80mg Discharge Plan Admission Admit Date/Time: 03/10/24 23:52 Primary Reason for Your Visit: Encephalopathy, Acute on Chronic Resp Failure, MSSA PNA, Viral illness Attending Provider: Jackie Caba Primary Care Provider: Armin Chau Consulting Providers: Jackie Caba; Jai Chua; Nic Avelar; Mina Badillo; Jamal Anderson; Grover Mena; Son Thomas; Allen Lomas; Drew Dave; Nanci Slater; Joe Celaya; Juan Carlos Ferraro; Dax Soler; Stephenie Yost; Kathe Henley; Bill Keith; Josias Webber; Hermilo Iglesias; Cricket Bonner; Tessie Gonzales; Oh English; Oliverio Kuo; Danny Klnie; Rosalia Farmer Instructions Patient Instructions: Pneumonia Community Acquired Additional Instructions / Restrictions: ADDITIONAL FOLLOW-UP RECOMMENDATIONS: #1. Acute Toxic/Metabolic Encephalopathy secondary to Acute Hypoxic and Hypercarbic Respiratory Failure on Chronic secondary to MSSA pneumonia/parainfluenza virus infection with concurrent Acute on Chronic COPD/asthma Exacerbation, initially concerned for Decompensated HFpEF, ruled out: --Initially managed to the ICU, BiPAP trial, eventually intubated with extubation 03/15/2024. --Treated with Ancef 1 g 3 times daily with plan for 7 days of antibiotics completed on 03/18/2024. --Treated also with IV Solu-Medrol with transition to oral prednisone 40 mg with plan for rapid taper at discharge. --Encourage continued aggressive pulmonary toilet, OOB, HOB and IS. --Continue q HS BIPAP and with naps PRN w/ settings IPAP 12/EPAP 5, 30% FiO2, high pressure alarm 30, low pressure alarm 2. --Follow-up with PCP and pulmonary medicine as requested. #2. Acute increased creatinine/acute renal insufficiency on Chronic Kidney Disease Stage III, unclear subtype per GFR trending: --Admission BUN/Cr 28/1.98, GFR 37, baseline renal function 1.4-1.5 per most recent GFR trending, most recent prior to this 12/17/2023 creatinine 1.56, held Aldactone initially, initially started on IV Lasix pulse dose eventually transitioned back to home Bumex transition. --03/19/2024 BUN/creatinine 80/1.75, GFR 43. --Repeat outpatient SNF BMP as requested. #3. Diabetes mellitus type II with hyperglycemia initially; however, during admission episodes of hypoglycemia noted: --Upon admission patient with elevated blood sugars in the infectious settings. --Eventually patient with hypoglycemic events 03/18/2024 with decreased basal insulin to 30 twice daily, decreased lispro to 10 units 3 times daily with meals which will need to be continued to be monitored and insulin therapies adjusted as weaned off steroids. --Continue ADA diet, accu checks w/ ISS. #4. Normocytic anemia: --Initial admission hemoglobin 13.8 however baseline previous to this in January 2024 had been 10-11 range, following admission range primarily 11-12. --03/19/2024 hemoglobin 11.8, MCV 86.9. --Repeat outpatient SNF CBC as requested. #5. Hypertension: --Continued on coreg, isosorbide, recently added losartan, restarted Bumex. --Upon presentation spironolactone held. This was not restarted secondary to normal range BP but we request continued BP monitoring and if BP above goal this may be added back if appropropriate. #6. Bilateral lower extremity chronic lymphedema: --Encourage continued BL LE elevation. --Continue SNUG rossy wraps to BL LE, toes to knee, overlapping, no skin showing, redo q shift and PRN if comes undone. Discharge Orders/Prescriptions Prescriptions: New bumetanide 2 mg Tablet 2 mg PO DAILY Qty: 0 0RF albuterol sulfate 2.5 mg /3 mL (0.083 %) Solution For Nebulization 2.5 mg inhalation Q2H PRN PRN (Reason: Dyspnea, wheezing) Qty: 0 0RF guaifenesin 100 mg/5 mL Liquid 100 mg G-tube Q4H PRN PRN (Reason: Cough) Qty: 0 0RF losartan 50 mg Tablet 50 mg PO DAILY Qty: 0 0RF ipratropium-albuterol 0.5 mg-3 mg(2.5 mg base)/3 mL Solution For Nebulization 3 ml inhalation Q4HWA.RT 2 Days Qty: 0 0RF prednisone 20 mg Tablet 40 mg PO BREAKFAST 5 Days Qty: 10 0RF sennosides-docusate sodium [Stimulant Laxative Plus] 8.6-50 mg Tablet 2 tab G-tube BID PRN PRN (Reason: Constipation) Qty: 0 0RF melatonin 3 mg Tablet 3 mg PO QHS PRN PRN (Reason: Insomnia) Qty: 0 0RF isosorbide mononitrate 60 mg Tablet Extended Release 24 Hr 60 mg PO DAILY Qty: 0 0RF alum-mag hydroxide-simeth [Mag-Al Plus Extra Strength] 400-400-40 mg/5 mL Suspension 30 ml PO Q6H PRN PRN (Reason: Gastric Burning) Qty: 0 0RF Deep Sea Nasal 0.65 % Aerosol,Commodore 1 spray NASAL TID PRN PRN (Reason: NASAL DRYNESS) Qty: 0 0RF insulin lispro [Humalog KwikPen Insulin] 100 unit/mL Insulin Pen 10 unit subcut TIDCM Qty: 0 0RF insulin lispro [Humalog KwikPen Insulin] 100 unit/mL Insulin Pen See Protocol subcut ACHS Qty: 0 0RF Protocol: 5. Sliding Scale Insulin High Dosing Condition: 150-209 mg/dl = 3 units Condition: 210-259 mg/dl = 6 units Condition: 260-324 mg/dl = 9 units Condition: 325-374 mg/dl = 12 units Condition: 375-409 mg/dl = 14 units Condition: 410-449 mg/dl = 16 units Condition: Greater than 449 call physician Protocol Text: Suggested for: - Patients on Total Daily Insulin Dose of 81-120 units - Very insulin resistant patients HIGH DOSING ALGORITHM insulin glargine-yfgn 100 unit/mL (3 mL) Insulin Pen 30 unit subcut BID Qty: 0 0RF Continued omeprazole magnesium 20 MG tablet,delayed release (DR/EC) 20 mg PO DAILY hydrocortisone 1 APPLIC ointment 1 applic TOPICAL TID liraglutide [Victoza 3-Benja] 0.6 mg/0.1 mL (18 mg/3 mL) Pen Injector 1.8 mg SUBCUT DAILY gentamicin 0.1 % ointment 1 applic topical DAILY PRN (Reason: skin irritation) carvedilol 25 mg tablet 25 mg PO BID hydrocortisone 2.5 % cream 1 applic topical DAILY PRN (Reason: skin irritation) cetirizine [24Hour Allergy] 10 mg tablet 10 mg PO DAILY PRN (Reason: allergy symptoms) (DME) portable nebulizer See Rx Instructions .Route .MEDSUPPLY Qty: 1 0RF Rx Instructions: As directed ipratropium-albuterol 0.5 mg-3 mg(2.5 mg base)/3 mL solution for nebulization 3 ml INHALATION Q4H PRN (Reason: shortness of breath or wheezing) Qty: 180 3RF Held spironolactone 25 mg tablet 25 mg PO DAILY Hold Instructions: Resume on 03/26/24. Continue to reassess BP and if appropriate may resume otherwise may need to D/C. Discontinued bumetanide 1 MG tablet 1 mg PO QHS bumetanide 1 mg tablet 2 mg PO .am Levemir FlexPen 100 unit/mL (3 mL) insulin pen 50 unit subcut DAILY Patient Comments: PT TAKES 50 UNITS AT BREAKFAST AND 45 UNITS AT BED TIME Levemir FlexPen 100 unit/mL (3 mL) insulin pen 45 unit subcut QHS Patient Comments: PT TAKES 50 UNITS AT BREAKFAST AND 45 UNITS AT BED TIME insulin aspart U-100 [Novolog FlexPen U-100 Insulin] 100 unit/mL (3 mL) insulin pen 40 unit subcut 4X/DAY Patient Comments: PT STATES HE TAKES SLIDING SCALE. STATES IF IT IS 200+, HE TAKES 1 UNIT PER BS NUMBER, PLUS THE 40 UNITS. PER [facility], RX STATES MAX 50 UNITS isosorbide mononitrate 30 mg tablet extended release 24 hr 30 mg PO DAILY Qty: 30 1RF Referrals / Follow Up: Armin Chau DO [Primary Care Provider] - (Follow-up within 3-5 days of discharge if SNF stay duration lengthy in addition to follow-up within 1-2 days of SNF discharge.) Heide Sifuentes NP, WAITER/WAITRESS COUNTER-C [Med Staff - Adv Practice Prof] - (Please follow-up within 2-4 weeks.) Disposition Disposition (needs filled in before D/C Order can be placed): Group Home Facility Charges/Coding Visit Charges Inpatient E&M: 97163 Disch Hosp >30min
[2024-03-19 16:52] LABS: Bedside Glucose 229 mg/dL (74-106)
[2024-03-19 17:22] LABS: Bedside Glucose 144 mg/dL (74-106)
[2024-03-19 23:19] LABS: Bedside Glucose 246 mg/dL (74-106)
--- NOTE | 2024-03-26 12:51 | CASEMGMT ---
Social Work- SW completed 7000, transport forms in anticipation of discharge. ERNIE Shepard
== END 2024-03-20 00:45 | disposition skilled nursing facility (03) | DRG 207 ==
LOC: ED 23:58 → ICU 03-11 00:14 → MS3 03-17 12:04
PROVIDERS: Internal Medicine; Internal Medicine Critical Care Medicine; Admitting Provider Family Medicine; Emergency Provider Emergency Medicine; PCP Family Medicine; Visit Provider Family Medicine
DX: J96.21 Acute and chronic respiratory failure with hypoxia (principal); J15.211 Pneumonia due to Methicillin susceptible Staphylococcus aureus; G92.8 Other toxic encephalopathy; Z68.43 Body mass index [BMI] 50.0-59.9, adult; J45.901 Unspecified asthma with (acute) exacerbation; I13.0 Hypertensive heart and chronic kidney disease with heart failure and stage 1 through stage 4 chronic kidney disease, or unspecified chronic kidney disease; J44.0 Chronic obstructive pulmonary disease with (acute) lower respiratory infection; J44.1 Chronic obstructive pulmonary disease with (acute) exacerbation; N17.9 Acute kidney failure, unspecified; I50.32 Chronic diastolic (congestive) heart failure; D63.1 Anemia in chronic kidney disease; E11.22 Type 2 diabetes mellitus with diabetic chronic kidney disease; N18.32 Chronic kidney disease, stage 3b; F32.A Depression, unspecified; J96.22 Acute and chronic respiratory failure with hypercapnia; E11.65 Type 2 diabetes mellitus with hyperglycemia; E66.01 Morbid (severe) obesity due to excess calories; K21.9 Gastro-esophageal reflux disease without esophagitis; Z79.4 Long term (current) use of insulin; E78.5 Hyperlipidemia, unspecified; G47.33 Obstructive sleep apnea (adult) (pediatric); E11.649 Type 2 diabetes mellitus with hypoglycemia without coma; I89.0 Lymphedema, not elsewhere classified; I95.9 Hypotension, unspecified; B34.8 Other viral infections of unspecified site; Z91.198 Patient's noncompliance with other medical treatment and regimen for other reason; Z99.81 Dependence on supplemental oxygen; Z79.01 Long term (current) use of anticoagulants; Z79.52 Long term (current) use of systemic steroids; Z79.84 Long term (current) use of oral hypoglycemic drugs; Z79.85 Long-term (current) use of injectable non-insulin antidiabetic drugs; Z79.899 Other long term (current) drug therapy
CPT/HCPCS: 31500; 31720; 36415; 36600; 71045; 71275; 74018; 76770; 80048; 80053; 80061; 80202; 82550; 82803; 82962; 83036; 83605; 83735; 83880; 84100; 84145; 84443; 84478; 84484; 85025; 85027; 87070; 87077; 87186; 87205; 87631; 87633; 93005; 94002; 94003; 94640; 94660; 94668; 94762; 97116; 97163; 97166; 97530; 97535; 97802; 97803; 99252; 99285; J2185; Q9967; A4216; G0463; J1940

== ENCOUNTER 2024-04-23 22:54 | Inpatient (IN) | payer MEDICARE, MEDICAID, SELFPAY ==
[2024-04-23 22:55] VITALS: BP 149/134; PULSE 102; RESP 18; TEMP 37; O2SAT 88; BMI 63.6
[2024-04-23 22:58] VITALS: BP 149/134; PULSE 103; RESP 35; TEMP 37; O2SAT 88; O2SAT 90
--- NOTE | 2024-04-23 23:15 | RAD_ITS ---
PROCEDURE: CHEST 1 VIEW (PORTABLE) REASON FOR EXAM: EMS cough or shortness of breath at [facility]. TECHNIQUE: AP upright portable chest. COMPARISON: Upright portable chest dated 03/15/2024. FINDINGS: Stable heart and mediastinum Infiltrates in the bilateral lower lobes. Prominent pulmonary vasculature. The bones are unremarkable. Soft tissues unremarkable. Cardiac monitoring leads overlie the chest wall. RAD/Chest 1 View (Portable) IMPRESSION: Suspect bilateral lung infiltrates with superimposed pulmonary venous congestio n. Reading Location: [facility]
[2024-04-23 23:23] VITALS: PULSE 103; RESP 28; O2SAT 92
[2024-04-23] MEDS: Albuterol 2.5 MG/3 ML VIAL.NEB. INHALATION (23:23)
[2024-04-23] MEDS: Ipratropium/Albuterol Sulfate 3 ML AMPUL.NEB INHALATION (23:23)
[2024-04-23] MEDS: Ondansetron 4 MG/2 ML Vial IV (23:25)
[2024-04-23] MEDS: Morphine 2 MG/ML Syringe IV (23:25)
--- NOTE | 2024-04-23 23:39 | CPS ---
[2323] x1 Albuterol given to pt. in ED as well
[2024-04-23 23:56] LABS: Anion Gap 5 (5-15); BUN 81 mg/dL (7-18); BUN/Creat Ratio 36.8 RATIO (10-20); Calcium,Total 8.8 mg/dL (8.5-10.1); Chloride 98 mmol/L (98-107); EST Glomerular Filtration Rate 33 mL/min (>60); Est Glom Filt Rate - Afr Amer 40 mL/min (>60); Estimated Creatinine Clearance 50.82 ml/min; Glucose 243 mg/dL (74-106); Magnesium 2.7 mg/dL (1.6-2.6); Potassium 5.9 mmol/L (3.5-5.1); Sodium Level 132 mmol/L (136-145)
[2024-04-23 23:57] VITALS: BP 151/78; BP 152/78; PULSE 89; RESP 24; TEMP 37.2; O2SAT 91; O2SAT 92
--- NOTE | 2024-04-23 23:58 | EKG12_ITS ---
Test Reason : DYSRHYTHMIA Blood Pressure : */* mmHG Vent. Rate : 105 BPM Atrial Rate : 105 BPM P-R Int : 164 ms QRS Dur : 84 ms QT Int : 324 ms P-R-T Axes : 43 116 28 degrees QTcB Int : 428 ms Sinus tachycardia Right axis deviation Low voltage QRS Septal infarct , age undetermined Abnormal ECG Confirmed by CRUZ BERGER, FERNANDA ([id number]), society editor GIGI VALENTINE ([id number]) on 04/25/2024 6:41:16 AM Referred By: Confirmed By: FERNANDA ARROYO MD
[2024-04-24] VITALS (38 sets, daily range): BP systolic 106–174; BP diastolic 44–87; PULSE 85–123; RESP 16–32; TEMP 36.4–37.2; O2SAT 60–100; BMI 63.2; BMI 63.3
[2024-04-24 00:10] LABS: Absolute Lymphocyte Count 0.85 X10^3/uL (0.83-4.51); Absolute Neutrophil Count 6.9 X10^3/uL (2.0-7.7); Basophil# 0.05 X10^3/uL; Basophil% 0.6 % (0-1); Eosinophil# 0.28 X10^3/uL; Eosinophils% 3.1 % (0-5); Hematocrit 31.5 % (40-54); Hemoglobin 9.7 g/dL (13.0-16.5); Lymphocyte # 0.85 X10^3/ul (0.83-4.51); Lymphocyte % 9.5 % (19-41); Mean Corp Hgb Conc 30.8 g/dL (32-36); Mean Corpuscular Volume 87.7 fL (80-94); Mean Platelet Vol. 9.6 fl (6.2-12.0); Monocyte# 0.67 X10^3/uL; Monocyte% 7.5 % (0-10); NRBC Flagged by Analyzer 0.4 % (0-5); Neutrophil # 6.87 X10^3/uL (2.7-7.7); Neutrophil % 76.3 % (47-70); Platelet Count 269 K/mm3 (150-450); RBC Distribution Width CV 15.9 % (11.6-14.6); RBC Distribution Width SD 49.5 fl (35.1-43.9); Red Blood Count 3.59 M/mm3 (4.6-6.2)
--- NOTE | 2024-04-24 01:18 | PCM.HP.STD ---
[facility] - General General Date of Admission: 04/24/24 Date of Service: 04/24/24 Chief Complaint: SOB and Wheezing. [facility] Narrative BAILEY THOMAS, is a 58 M with a past medical history of essential hypertension; on carvedilol, losartan and bumetanide, hyperlipidemia; with intolerance to statins, morbid obesity; with BMI of 63.7 this admission, MARYLU; noncompliant with CPAP, DM-2; of unknown control on liraglutide, insulin glargine 30U sq BID plus insulin lispro 10U sq TID and SSI, history asthma/COPD; without previous tobacco abuse, chronic hypoxic respiratory failure on 3L NC continuous, chronic diastolic CHF; with preserved LVEF, chronic LE lymphedema, PVD; with history of non-pressure ulcers of both LE's, CKD; stage III, chronic normocytic anemia, GERD; on omeprazole, OA and history of recent admission here from March 10, 2024 to March 19, 2024 for treatment of AE COPD due to a combination of parainfluenza infection and MSSA pneumonia complicated by clinical evidence of acute on chronic hypoxic and hypercapnic respiratory failure compounded by EITAN in the setting of CKD; stage III of uncertain subtype and hypophosphatemia causing acute toxic/metabolic encephalopathy requiring ICU admission and pulmonary critical care consultation with patient ultimately discharged to [facility] who now re-presents to [facility] ER complaining of shortness of breath and wheezing. Mr. Thomas reports his symptoms began earlier today with the abrupt-onset of shortness of breath at rest with wheezing that was unrelieved with his supplemental oxygen causing staff at his [facility] to initially treat him with a nebulizer which did not significantly improve his symptoms so they have been activated EMS. He states his symptoms are similar to his recent previous admission in February of last year with persistent wheezing and nonproductive cough. Patient admits to fever, chills, runny nose, sore throat and persistent shortness of breath at rest with cough along with myalgias and generalized weakness with increasing bilateral lower extremity erythema similar to his previous episodes of cellulitis. He denies associated nausea, vomiting, diarrhea, constipation, dysuria, chest pain or headache. In the ER he was noted to have a viral assay positive for SARS-CoV-2 with clinical evidence of COVID-19 with chest x-ray this admission positive for suspected bilateral lung infiltrates with superimposed pulmonary venous congestion complicated by clinical evidence of AE COPD with Aqjfe-zz-Ycunekb Hypoxic and Hypercapnic Respiratory Failure with ABG revealing severe respiratory acidosis with pH 7.26/pCO2 80.4 mmHg/pO2 72 mmHg/bicarbonate 35.9 mmol/L on 10L NC requiring transition to BiPAP compounded by laboratory evidence of EITAN; in the setting of CKD; stage III with elevated serum creatinine of 2.2 mg/dL and BUN of 81 mg/dL (up from his baseline of 1.75 mg/dL last admission) along with Hyperkalemia of 5.9 mmol/L present on admission along with a mildly elevated BNP of 136 pg/mL mitigating against significant acute CHF along with additional evidence of Bilateral Lower Extremity Cellulitis and he was then admitted to the ICU for ongoing care for a stay that is expected to extend beyond 2 midnights. [facility] Medical History (Updated 04/24/24 @ 06:[address] Son Pérez, DO) Parainfluenza infection MSSA (methicillin susceptible Staphylococcus aureus) pneumonia Morbid obesity CKD (chronic kidney disease), stage III MARYLU (obstructive sleep apnea) HLD (hyperlipidemia) Insulin dependent diabetes mellitus Chronic respiratory failure with hypoxia and hypercapnia (HFpEF) heart failure with preserved ejection fraction Non-smoker Asthma HTN (hypertension) COPD (chronic obstructive pulmonary disease) Non-compliance Lymphedema Ulcer of left lower extremity with fat layer exposed Ulcer of right lower extremity with fat layer exposed Home Medications ?Medication ?Instructions ?Recorded ?Last Taken ?Type omeprazole magnesium 20 mg 20 mg PO DAILY stomach 06/01/19 12/13/23 History tablet,delayed release portable nebulizer #1 ea 12/31/20 Unknown Rx ipratropium 0.5 mg-albuterol 3 mg 3 ml inhalation Q4H PRN shortness 01/06/21 12/13/23 Rx (2.5 mg base)/3 mL nebulization of breath or wheezing #180 mL soln liraglutide 0.6 mg/0.1 mL (18 mg/3 1.8 mg subcut DAILY diabetes 06/29/21 12/13/23 History mL) subcutaneous pen injector (Victoza 3-Benja) carvedilol 25 mg tablet 25 mg PO BID heart 12/14/23 12/13/23 History cetirizine 10 mg tablet (24Hour 10 mg PO DAILY PRN allergy symptoms 12/14/23 12/14/23 History Allergy) gentamicin 0.1 % topical ointment 1 applic topical DAILY PRN skin 12/14/23 12/13/23 History irritation hydrocortisone 2.5 % topical cream 1 applic topical DAILY PRN skin 12/14/23 12/13/23 History irritation albuterol sulfate 2.5 mg/3 mL 2.5 mg (3 mL) inhalation Q2H PRN 03/19/24 Unknown Rx (0.083 %) solution for nebulization PRN Dyspnea, wheezing #0 mL aluminum-mag hydroxide-simethicone 30 ml PO Q6H PRN PRN Gastric 03/19/24 Unknown Rx 400 mg-400 mg-40 mg/5 mL oral susp Burning #0 mL (Mag-Al Plus Extra Strength) bumetanide 2 mg tablet 2 mg PO DAILY #0 tabs 03/19/24 Unknown Rx guaifenesin 100 mg/5 mL oral liquid 100 mg (5 mL) G-tube Q4H PRN PRN 03/19/24 Unknown Rx Cough #0 mL insulin glargine-yfgn 100 unit/mL 30 unit (0.3 mL) subcut BID #0 mL 03/19/24 Unknown Rx (3 mL) subcutaneous pen insulin lispro 100 unit/mL 10 unit (0.1 mL) subcut TIDCM #0 mL 03/19/24 Unknown Rx subcutaneous pen (Humalog KwikPen (U-100) Insulin) insulin lispro 100 unit/mL See Protocol subcut ACHS #0 mL 03/19/24 Unknown Rx subcutaneous pen (Humalog KwikPen (U-100) Insulin) ipratropium 0.5 mg-albuterol 3 mg 3 ml inhalation Q4HWA.RT 2 days #0 03/19/24 Unknown Rx (2.5 mg base)/3 mL nebulization mL soln isosorbide mononitrate 60 mg 60 mg PO DAILY #0 tabs 03/19/24 Unknown Rx tablet,extended release 24 hr losartan 50 mg tablet 50 mg PO DAILY #0 tabs 03/19/24 Unknown Rx sennosides 8.6 mg-docusate sodium 2 tab G-tube BID PRN PRN 03/19/24 Unknown Rx 50 mg tablet (Stimulant Laxative Constipation #0 tabs Plus) Allergy/AdvReac Type Severity Reaction Status Date / Time amlodipine (From [facility]) Allergy Other Verified 04/23/24 22:58 apraclonidine Allergy Other Verified 04/23/24 22:58 diltiazem Allergy Unknown Verified 04/23/24 22:58 doxycycline Allergy Other Verified 04/23/24 22:58 enalapril Allergy Other Verified 04/23/24 22:58 glimepiride Allergy Other Verified 04/23/24 22:58 glipizide (From Glucotrol) Allergy Other Verified 04/23/24 22:58 hydralazine Allergy Other Verified 04/23/24 22:58 ibuprofen Allergy Other Verified 04/23/24 22:58 Influenza Virus Vaccines Allergy Unknown Verified 04/23/24 22:58 latex Allergy Other Verified 04/23/24 22:58 lisinopril Allergy Other Verified 04/23/24 22:58 metoprolol Allergy Other Verified 04/23/24 22:58 montelukast Allergy Other Verified 04/23/24 22:58 Penicillins Allergy Other Verified 04/23/24 22:58 pravastatin Allergy Other Verified 04/23/24 22:58 prednisone Allergy Other Verified 04/23/24 22:58 propranolol Allergy Unknown Verified 04/23/24 22:58 simvastatin (From Zocor) Allergy Other Verified 04/23/24 22:58 sulfamethoxazole (From Allergy Other Verified 04/23/24 22:58 Bactrim) trimethoprim (From Bactrim) Allergy Other Verified 04/23/24 22:58 Family History Father Diabetes Hyperlipemia Heart disease Mother CHF (congestive heart failure) Heart disease CVA (cerebral vascular accident) Surgical History Hx of [facility] Social History housing: house current occupational status: unemployed and disabled Smoking Status: Never smoker alcohol intake: never substance use type: does not use ROS ROS Narrative Review of Systems: Constitutional: Patient admits to fever and chills. Eyes: Patient denies changes in vision or discharge from eyes. ENT: Patient admits to runny nose and sore throat. Resp: Patient admits to shortness of breath, cough and wheezing. CV: Patient denies chest pain, palpitations or heart racing but he does admit to increasing lower extremity edema and erythema. GI: Patient denies abdominal pain, nausea, vomiting, diarrhea or constipation. : Patient denies dysuria, hematuria or urinary frequency. MSK: Patient admits to myalgias and generalized weakness but denies arthralgias. Skin: Patient admits to increasing bilateral lower extremity edema and erythema similar to his previous bouts of cellulitis. Psych: Patient denies symptoms of uncontrolled depression or anxiety. Neuro: Patient denies headache, paresthesias or focal neurologic deficits. Allergy: Patient denies lip swelling, tongue swelling or urticaria. Hematology: Patient denies easy bleeding or easy bruisability. Endocrinology: Patient denies polyuria, polydipsia or polyphagia. 14 point review of systems otherwise negative except for positives noted above in HPI. Vital Signs Vital Signs Vital Signs: 04/23/24 22:55 04/23/24 22:58 04/23/24 22:58 Temperature 98.6 F 98.6 F Temperature Source Temporal Oral Pulse Rate 102 H 103 H Respiratory Rate 18 35 H Respiratory Effort Short of Breath Labored Accessory Muscle Use Respiratory Depth Shallow Respiratory Pattern Tachypnea Blood Pressure 149/134 H 149/134 H Blood Pressure Mean 139 139 Pulse Ox 88 88 Oxygen Delivery Method Nasal Cannula Nasal Cannula Nasal Cannula Oxygen Flow Rate (L/min) 5 5 5 04/23/24 23:23 04/23/24 23:23 04/23/24 23:57 Temperature 98.9 F Temperature Source Temporal Pulse Rate 103 H 89 Respiratory Rate 28 H 24 H Respiratory Effort Respiratory Depth Respiratory Pattern Tachypnea Blood Pressure 151/78 H Blood Pressure Mean 102 Pulse Ox 92 92 Oxygen Delivery Method Nasal Cannula High Flow Oxygen Flow Rate (L/min) 6 10 04/23/24 23:57 04/24/24 01:00 Temperature 98.9 F 98.9 F Temperature Source Oral Oral Pulse Rate 89 113 H Respiratory Rate 24 H 24 H Respiratory Effort Respiratory Depth Respiratory Pattern Blood Pressure 152/78 H 135/64 H Blood Pressure Mean 102 87 Pulse Ox 91 92 Oxygen Delivery Method High Flow High Flow Oxygen Flow Rate (L/min) 10 10 Weight Weight: 359 lb 9.183 oz Body Mass Index (BMI) 63.6 Physical Exam Const alert, oriented x3 and no apparent distress Constitutional Narrative: Patient morbidly obese and chronically ill but appears comfortable on BiPAP. General Appearance: cooperative HEENT normocephalic, head/scalp atraumatic, hearing grossly normal bilaterally and moist oral mucous membranes Eyes PERRL and EOMs intact bilaterally Neck no lymphadenopathy and supple Resp Resp Narrative: Diminished breath sounds throughout with scattered wheezing. Auscultation: wheezes Cardio regular rate and regular rhythm GI normal to inspection, nondistended, normoactive bowel sounds, soft to palpation, non-tender and non-distended GI Narrative: Morbidly obese. Extremity Extremity Narrative: Patient has evidence of chronic bilateral lower extremity lymphedema with superimposed erythema consistent with suspected cellulitis. Skin Skin Narrative: Patient has bilateral lower extremity erythema in the setting of chronic lower extremity lymphedema. Neuro oriented x3, CN's II-XII intact bilaterally, moves all extremities and no focal motor deficits Sensorium / Orientation: awake, alert, oriented to person, oriented to place and oriented to time Speech: speech normal Psych affect normal Results Medical Records Data Attestation: I reviewed the patient's medical records Lab / Micro Data Attestation: I reviewed the patient's lab results. 04/24/24 04:17 04/24/24 04:17 Labs: Laboratory Results - last 24 hr 04/23/24 23:10: WBC 9.0, RBC 3.59 L, Hgb 9.7 L, Hct 31.5 L, MCV 87.7, MCH 27.0, MCHC 30.8 L, RDW Std Deviation 49.5 H, RDW Coeff of Jung 15.9 H, Plt Count 269, MPV 9.6, Immature Gran % (Auto) 3.000 H, Neut % (Auto) 76.3 H, Lymph % (Auto) 9.5 L, Mccracken % (Auto) 7.5, Eos % (Auto) 3.1, Baso % (Auto) 0.6, Absolute Neuts (auto) 6.9, Absolute Lymphs (auto) 0.85, Nucleated RBC % 0.4, Sodium 132 L, Potassium 5.9 H, Chloride 98, Carbon Dioxide 30.0, Anion Gap 5, BUN 81 H, Creatinine 2.20 H, Estim Creat Clear Calc 50.82, Est GFR (MDRD) Af Amer 40 L, Est GFR (MDRD) Non-Af 33 L, BUN/Creatinine Ratio 36.8 H, Glucose 243 H, Calcium 8.8, Magnesium 2.7 H, B-Natriuretic Peptide 136.0 H Micro: Microbiology 04/23/24 23:24 Mucosa - Nose SARS-CoV-2, Influenza & RSV (PCR) - Final SARS-CoV-2 (COVID 19 PCR) ABG Data ABG results: RUN DATE: 04/24/24 [facility], DEPARTMENT OF LABORATORIES PAGE 1 RUN TIME: 0641 Specimen Inquiry [id number] [place], [address] PATIENT: BAILEY THOMAS LOC: ICU U #: [id number] : 1965 AGE/SX: 58/M FACILITY: [facility] ROOM: ICU08 RE04/24/[address]: Dr. Son Pérez D STATUS:ADM IN ED: 1 DIS: ~ SPEC #: [id number] CHITRA: 04/24/24 STATUS: COMP REQ #: [id number] RECD: 04/24/[address]: Dr. Son Pérez, DO ENTERED: 04/24/[address]: Dr. Nigel Silvestre MD ~ Test Result Flag Reference Range IBG Blood Gas Type ART SITE L Radial CECE TEST Positive Mode Not entered O2 Delivery Dev BiPAP Vt 550.0 mL RR 16 FI02 40.0 pH 7.38 7.35-7.45 pCO2 50.9 H 35-45 mmHg PO2 75 75-100 mmHG HCO3 30.0 H 22-26 mmol/L BE 5 H -2 to +2 mmol/L TOTAL CO2 32 mmol/L SO2 94 L 95-99 % Imaging Radiology Impression Chest X-Ray 04/23/24 23:15 IMPRESSION: Suspect bilateral lung infiltrates with superimposed pulmonary venous congestion. Reading Location: [facility] Assessment & Plan Assessment/Plan (1) COVID-19: (2) Cellulitis: QUALIFIERS: Site of cellulitis: extremity Site of cellulitis of extremity: lower extremity Laterality: unspecified laterality Qualified Code(s): L03.119 - Cellulitis of unspecified part of limb (3) Pneumonia due to 2019 novel coronavirus: (4) COPD exacerbation: (5) Acute and chronic respiratory failure with hypercapnia: (6) EITAN (acute kidney injury): (7) Acute hyperkalemia: (8) CKD (chronic kidney disease), stage III: QUALIFIERS: Chronic kidney disease stage 3 subtype: unspecified whether 3a or 3b Qualified Code(s): N18.30 - Chronic kidney disease, stage 3 unspecified (9) Adverse drug reaction: QUALIFIERS: Encounter type: initial encounter Qualified Code(s): T50.905A - Adverse effect of unspecified drugs, medicaments and biological substances, initial encounter (10) Morbid obesity with BMI of 60.0-69.9, adult: PLAN: Plan 1. Viral assay positive for SARS-CoV-2 with clinical evidence of COVID-19 with chest x-ray this admission positive for suspected bilateral lung infiltrates with superimposed pulmonary venous congestion complicated by possible bacterial superinfection along with Bilateral Lower Extremity Cellulitis - Admit to ICU under contact and droplet precautions. Start empiric IV Azactam given patient's extensive allergy profile and history of MSSA pneumonia last admission. Check urinary antigens to Legionella and Streptococcus pneumonia. Give supplemental vitamin D3, vitamin C and zinc to help boost immunity and hopefully speed recovery. Give acetaminophen as needed for sxvg-wz-gzryxvyk (level 1-5/10) pain or fever. Give morphine IV as needed for severe (level 6-10/10) pain. 2. AE COPD with Ldsgk-uz-Rsvxsey Hypoxic and Hypercapnic Respiratory Failure with ABG revealing severe respiratory acidosis with initial ABG revealing pH 7.26/ pCO2 80.4 mmHg/ pO2 72 mmHg/ bicarbonate 35.9 mmol/L on 10L NC requiring BiPAP attributable to #1 - Continue IV Decadron begun in the ER plus continue scheduled and prn nebulizers. Recheck ABG in one hour to confirm improvement on BiPAP. 3. EITAN; in the setting of CKD; stage III with elevated serum creatinine of 2.2 mg/dL and BUN of 81 mg/dL (up from his baseline of 1.75 mg/dL last admission) complicating #1 & #2 - Gently volume resuscitate in patient with a known history of chronic diastolic CHF; with preserved LVEF. Follow strict I's & O's to prevent potential volume overload. 4. Hyperkalemia of 5.9 mmol/L present on admission likely due to a combination of severe respiratory acidosis and EITAN compounding #1 - #3 - Patient was emergently treated with IV insulin, IV D50, oral Kayexalate and IV calcium gluconate in ER. We will recheck level in AM to confirm improvement. 5. Essential Hypertension; on carvedilol, losartan and bumetanide with suspected Adverse Drug Reaction to diuretic and ARB contributing to #3 & #4 - Hold losartan and bumetanide but continue carvedilol to prevent severe rebound tachycardia with patient likely to receive very frequent nebulizers. 6. Morbid Obesity; with BMI of 63.7 this admission in the setting of known MARYLU; noncompliant with CPAP adding to the medical complexity of #1 - #5 - Weight loss will be recommended. Check TSH. This complicates his case and may hamper recovery. 7. Recent admission here from March 10, 2024 to March 19, 2024 for treatment of AE COPD due to a combination of parainfluenza infection and MSSA pneumonia complicated by clinical evidence of acute on chronic hypoxic and hypercapnic respiratory failure compounded by EITAN in the setting of CKD; stage III of uncertain subtype and hypophosphatemia causing acute toxic/metabolic encephalopathy requiring ICU admission and pulmonary critical care consultation with patient ultimately discharged to [facility] - Noted with ominously similar pattern of severe illness. 8. Chronic diastolic CHF; with preserved LVEF and mildly elevated BNP of 136 pg/mL present on admission mitigating against significant acute CHF - Noted. We we will closely monitor I's and O's to avoid volume overload. 9. DM-2; of unknown control on liraglutide, insulin glargine 30U sq BID plus insulin lispro 10U sq TID and SSI - ADA diet to be started if patient improves on BiPAP. Continue insulin glargine and insulin lispro as previous but hold liraglutide while inpatient. 10. Hyperlipidemia; with intolerance to statins - Check Lipid Profile this admission. 11. History asthma/COPD; without previous tobacco abuse with subsequent chronic hypoxic respiratory failure on 3L NC continuous - Noted. 12. Chronic LE Lymphedema - Stable. 13. PVD; with history of non-pressure ulcers of both LE's - Stable. 14. Chronic normocytic anemia - Slightly worse with hemoglobin of 9.7 g/dL (down from his previous baseline of 11.8 g/dL last admission) and with a BUN/creatinine ratio of ~40:1 worrisome for possible bleeding. Hemoccult stools. Check iron studies and ferritin. 15. GERD; on omeprazole - Maintain on PPI. 16. OA - Give acetaminophen prn. 17. DVT prophylaxis - Heparin 5,000U sq TID plus SCD's. We will hold chemoprophylaxis if patient develops signs of bleeding. Total time: Approximately (but not less than) 75 minutes. Charges/Coding Visit Charges Inpatient E&M: 25668 Init Hosp L3
--- NOTE | 2024-04-24 01:25 | EX.ED.DYSGE1 ---
HPI History of Present Illness Chief Complaint: Shortness of Breath Informant: patient and EMS Narrative Narrative: Patient is a 58-year-old male with past medical history of COPD congestive heart failure and lymphedema. He was admitted to the hospital for respiratory distress in November 2023 and after his hospital stay was transferred to a group home. He states he has been residing there ever since. He reports that yesterday he had mild fatigue and congestion and cough and then today the shortness of breath worsened. He reports he wears 3 L of nasal cannula oxygen at baseline but despite wearing this since had worsening symptoms and therefore EMS was called and he was brought in for evaluation [facility] Medical History (Updated 04/24/24 @ 05:[address] Dax Marshall, DO) Parainfluenza infection MSSA (methicillin susceptible Staphylococcus aureus) pneumonia Morbid obesity CKD (chronic kidney disease), stage III MARYLU (obstructive sleep apnea) HLD (hyperlipidemia) Insulin dependent diabetes mellitus Chronic respiratory failure with hypoxia and hypercapnia (HFpEF) heart failure with preserved ejection fraction Non-smoker Asthma HTN (hypertension) COPD (chronic obstructive pulmonary disease) Non-compliance Lymphedema Ulcer of left lower extremity with fat layer exposed Ulcer of right lower extremity with fat layer exposed Home Medications ?Medication ?Instructions ?Recorded ?Last Taken ?Type omeprazole magnesium 20 mg 20 mg PO DAILY stomach 06/01/19 12/13/23 History tablet,delayed release portable nebulizer #1 ea 12/31/20 Unknown Rx ipratropium 0.5 mg-albuterol 3 mg 3 ml inhalation Q4H PRN shortness 01/06/21 12/13/23 Rx (2.5 mg base)/3 mL nebulization of breath or wheezing #180 mL soln liraglutide 0.6 mg/0.1 mL (18 mg/3 1.8 mg subcut DAILY diabetes 06/29/21 12/13/23 History mL) subcutaneous pen injector ([employer] [facility] 3-Benja) carvedilol 25 mg tablet 25 mg PO BID heart 12/14/23 12/13/23 History cetirizine 10 mg tablet (24Hour 10 mg PO DAILY PRN allergy symptoms 12/14/23 12/14/23 History Allergy) gentamicin 0.1 % topical ointment 1 applic topical DAILY PRN skin 12/14/23 12/13/23 History irritation hydrocortisone 2.5 % topical cream 1 applic topical DAILY PRN skin 12/14/23 12/13/23 History irritation albuterol sulfate 2.5 mg/3 mL 2.5 mg (3 mL) inhalation Q2H PRN 03/19/24 Unknown Rx (0.083 %) solution for nebulization PRN Dyspnea, wheezing #0 mL aluminum-mag hydroxide-simethicone 30 ml PO Q6H PRN PRN Gastric 03/19/24 Unknown Rx 400 mg-400 mg-40 mg/5 mL oral susp Burning #0 mL (Mag-Al Plus Extra Strength) bumetanide 2 mg tablet 2 mg PO DAILY #0 tabs 03/19/24 Unknown Rx guaifenesin 100 mg/5 mL oral liquid 100 mg (5 mL) G-tube Q4H PRN PRN 03/19/24 Unknown Rx Cough #0 mL insulin glargine-yfgn 100 unit/mL 30 unit (0.3 mL) subcut BID #0 mL 03/19/24 Unknown Rx (3 mL) subcutaneous pen insulin lispro 100 unit/mL 10 unit (0.1 mL) subcut TIDCM #0 mL 03/19/24 Unknown Rx subcutaneous pen (Humalog KwikPen (U-100) Insulin) insulin lispro 100 unit/mL See Protocol subcut ACHS #0 mL 03/19/24 Unknown Rx subcutaneous pen (Humalog KwikPen (U-100) Insulin) ipratropium 0.5 mg-albuterol 3 mg 3 ml inhalation Q4HWA.RT 2 days #0 03/19/24 Unknown Rx (2.5 mg base)/3 mL nebulization mL soln isosorbide mononitrate 60 mg 60 mg PO DAILY #0 tabs 03/19/24 Unknown Rx tablet,extended release 24 hr losartan 50 mg tablet 50 mg PO DAILY #0 tabs 03/19/24 Unknown Rx sennosides 8.6 mg-docusate sodium 2 tab G-tube BID PRN PRN 03/19/24 Unknown Rx 50 mg tablet (Stimulant Laxative Constipation #0 tabs Plus) Allergy/AdvReac Type Severity Reaction Status Date / Time amlodipine (From [facility]) Allergy Other Verified 04/23/24 22:58 apraclonidine Allergy Other Verified 04/23/24 22:58 diltiazem Allergy Unknown Verified 04/23/24 22:58 doxycycline Allergy Other Verified 04/23/24 22:58 enalapril Allergy Other Verified 04/23/24 22:58 glimepiride Allergy Other Verified 04/23/24 22:58 glipizide (From Glucotrol) Allergy Other Verified 04/23/24 22:58 hydralazine Allergy Other Verified 04/23/24 22:58 ibuprofen Allergy Other Verified 04/23/24 22:58 Influenza Virus Vaccines Allergy Unknown Verified 04/23/24 22:58 latex Allergy Other Verified 04/23/24 22:58 lisinopril Allergy Other Verified 04/23/24 22:58 metoprolol Allergy Other Verified 04/23/24 22:58 montelukast Allergy Other Verified 04/23/24 22:58 Penicillins Allergy Other Verified 04/23/24 22:58 pravastatin Allergy Other Verified 04/23/24 22:58 prednisone Allergy Other Verified 04/23/24 22:58 propranolol Allergy Unknown Verified 04/23/24 22:58 simvastatin (From Zocor) Allergy Other Verified 04/23/24 22:58 sulfamethoxazole (From Allergy Other Verified 04/23/24 22:58 Bactrim) trimethoprim (From Bactrim) Allergy Other Verified 04/23/24 22:58 Family History Father Diabetes Hyperlipemia Heart disease Mother CHF (congestive heart failure) Heart disease CVA (cerebral vascular accident) Surgical History Hx of [facility] Social History housing: house current occupational status: unemployed and disabled Smoking Status: Never smoker alcohol intake: never substance use type: does not use ROS ROS ED Constitutional Constitutional ED: Reports chills, fever(s) and subjective Eyes Eyes: Denies change in vision ENT ENT ED: Reports rhinorrhea and sore throat Cardiovascular Cardiovascular: Denies chest pain Respiratory/Chest Respiratory/Chest: Reports cough and dyspnea Gastrointestinal Gastrointestinal: Denies abdominal pain, diarrhea, nausea or vomiting Genitourinary Genitourinary ED: Denies dysuria Musculoskeletal Musculoskeletal: Reports myalgias Integumentary Denies rash Neurologic Neurologic: Reports weakness; Denies headache(s) Hematologic/Lymphatic Hematologic/Lymphatic: Denies easy bleeding or easy bruising Allergic/Immunologic Allergic/Immunologic ED: Denies mouth swelling or tongue swelling EXAM Physical Exam Const Vital Signs: 04/23/24 22:55 04/23/24 22:58 04/23/24 22:58 Temperature 98.6 F 98.6 F Temperature Source Temporal Oral Pulse Rate 102 H 103 H Respiratory Rate 18 35 H Respiratory Effort Short of Breath Labored Accessory Muscle Use Respiratory Depth Shallow Respiratory Pattern Tachypnea Blood Pressure 149/134 H 149/134 H Blood Pressure Mean 139 139 Pulse Ox 88 88 Oxygen Delivery Method Nasal Cannula Nasal Cannula Nasal Cannula Oxygen Flow Rate (L/min) 5 5 5 04/23/24 23:23 04/23/24 23:23 04/23/24 23:57 Temperature 98.9 F Temperature Source Temporal Pulse Rate 103 H 89 Respiratory Rate 28 H 24 H Respiratory Effort Respiratory Depth Respiratory Pattern Tachypnea Blood Pressure 151/78 H Blood Pressure Mean 102 Pulse Ox 92 92 Oxygen Delivery Method Nasal Cannula High Flow Oxygen Flow Rate (L/min) 6 10 04/23/24 23:57 04/24/24 01:00 04/24/24 01:10 Temperature 98.9 F 98.9 F 98.9 F Temperature Source Oral Oral Pulse Rate 89 113 H 103 H Respiratory Rate 24 H 24 H 24 H Respiratory Effort Respiratory Depth Respiratory Pattern Blood Pressure 152/78 H 135/64 H 135/64 H Blood Pressure Mean 102 87 87 Pulse Ox 91 92 92 Oxygen Delivery Method High Flow High Flow Oxygen Flow Rate (L/min) 10 10 Positive well nourished, well developed and obese General Appearance ED: well developed Nutritional Appearance: obese HEENT HEENT Narrative: Nasal mucosa is hyperemic and boggy Cobblestoning is noted in the posterior pharynx consistent with sinus drainage. No tongue or lip swelling no oral lesions no airway edema or compromise Eyes PERRL and EOMs intact bilaterally General Eye ED: Negative for scleral icterus Neck supple and No no JVD Neck Narrative: No nuchal rigidity or meningeal signs Chest Wall palpation of chest normal Resp Resp Narrative: Breath sounds are diminished throughout with diffuse expiratory wheeze and faint crackles noted in bilateral bases. Cardio regular rhythm Rate: tachycardic and other GI normal to inspection, nondistended, normoactive bowel sounds, non-tender, non-distended and no masses GI Narrative: No pulsatile mass or fluid wave Auscultation: normoactive bowel sounds Palpation: soft Extremity Extremity Narrative: Chronic edema to the bilateral lower extremities that is equal and symmetric consistent with history of lymphedema with negative Homans' sign bilaterally Neuro oriented x3, CN's II-XII intact bilaterally and no sensory deficits noted Sensorium / Orientation: alert Psych mental status grossly normal Skin Skin Narrative: Chronic stasis changes to bilateral lower legs without secondary findings to suggest infection MDM MDM MDM Narrative Medical decision making narrative: Patient arrived to the ER with increased work of breathing and his pulse ox on his normal 3 L was low at approximately 85%. His history and exam is concerning for COPD exacerbation versus pneumonia versus CHF exacerbation versus viral infection such as COVID influenza or RSV. As he is hypoxic on his baseline oxygen he was transition to high flow nasal cannula and placed on 10 L. This did improve his oxygen saturation to 91 to 93%. Chest x-ray revealed changes consistent with CHF and potential pneumonia and COVID swab was positive which would correlate with his sensation of congestion cough and fatigue and worsening shortness of breath. At this time he is requiring a morning invasive form of supplemental oxygen in the high flow and a larger amount in the 10 L from his 3 L. As his symptoms have only been present for approximately 24 hours there is high likelihood his symptoms and respiratory distress will worsen over the next few days and could progress to need for repeat intubation. Therefore do not feel to safe for him to return home. I did not add Lasix as his creatinine has elevated from its baseline and IV diuresis could worsen his EITAN. The case was discussed with the hospitalist who does agree to admit the patient for further care and does recommend ICU placement based on his multiple medical comorbidities and high likelihood for worsening of respiratory distress History & Record Review Discussion w/independent historian: Patient Lab Data Attestation: I reviewed the patient's lab results. Labs: Laboratory Results - last 24 hr 04/23/24 23:10 WBC 9.0 RBC 3.59 L Hgb 9.7 L Hct 31.5 L MCV 87.7 MCH 27.0 MCHC 30.8 L RDW Std Deviation 49.5 H RDW Coeff of Jung 15.9 H Plt Count 269 MPV 9.6 Immature Gran % (Auto) 3.000 H Neut % (Auto) 76.3 H Lymph % (Auto) 9.5 L [place] % (Auto) 7.5 Eos % (Auto) 3.1 Baso % (Auto) 0.6 Absolute Neuts (auto) 6.9 Absolute Lymphs (auto) 0.85 Nucleated RBC % 0.4 Sodium 132 L Potassium 5.9 H Chloride 98 Carbon Dioxide 30.0 Anion Gap 5 BUN 81 H Creatinine 2.20 H Estim Creat Clear Calc 50.82 Est GFR (MDRD) Af Amer 40 L Est GFR (MDRD) Non-Af 33 L BUN/Creatinine Ratio 36.8 H Glucose 243 H Lactic Acid 1.5 Calcium 8.8 Magnesium 2.7 H B-Natriuretic Peptide 136.0 H TSH 4.790 H Radiography Diagnostic Testing: Clinical Impression(s) from Imaging Studies Chest X-Ray 04/23/24 23:15 IMPRESSION: Suspect bilateral lung infiltrates with superimposed pulmonary venous congestion. Reading Location: [facility] Chest x-ray as interpreted by the emergency medicine physician reveals increased vascular congestion consistent with CHF and reticular opacities in the bilateral bases concerning for developing pneumonia Critical Care Time Critical Care Time: Yes Critical care time (excluding procedures): Discussing w/Patient &/or Family/Dist[employer], Discussing w/Consultants and - (Critical care time of 33 minutes) Discharge Plan Dx/Rx/DC Orders Clinical Impression: Chronic obstructive pulmonary disease with acute respiratory distress, HTN (hypertension), Diastolic CHF, Hypoxia, COVID-19, EITAN (acute kidney injury), Acute hyperkalemia Disposition Disposition: Acute Care Hospital [facility] Discharge Date/Time: 04/24/24 04:15
[2024-04-24 01:53] LABS: Allen Test Positive; Base Excess 9 mmol/L (-2 to +2); Bicarbonate 35.9 mmol/L (22-26); Blood Gas Specimen Type ART; Mode Not entered; O2 Delivery Device HFNC; PO2 72 mmHG (75-100); SITE L Radial; SO2 90 % (95-99); Total Carbon Dioxide 38 mmol/L; pCO2 80.4 mmHg (35-45); pH 7.26 (7.35-7.45)
[2024-04-24 02:13] LABS: Lactic Acid 1.5 mmol/L (0.4-1.9)
[2024-04-24] MEDS: Dextrose 10%-Water 250 ML 999 ML IV (02:50)
[2024-04-24] MEDS: Sodium Polystyrene Sulfonate 15 GM/60 ML UDC PO (02:50)
[2024-04-24] MEDS: dexAMETHasone 10 MG/ML Vial 6 MG IV ×3 (02:50→21:13)
[2024-04-24] MEDS: Calcium Gluconate IV 3 GM in Syringe 1 EACH IV (02:50)
[2024-04-24] MEDS: 0.9% Normal Saline (1000mL) 1,000 ML 75 ML IV (02:50)
[2024-04-24] MEDS: Insulin Lispro 10 UNIT in Syringe 0 ML 6 UNIT IV (02:50)
[2024-04-24 03:40] LABS: Allen Test Positive; Base Excess 8 mmol/L (-2 to +2); Bicarbonate 35.4 mmol/L (22-26); Blood Gas Specimen Type ART; Mode Not entered; O2 Delivery Device BiPAP; PO2 69 mmHG (75-100); SITE L Radial; SO2 90 % (95-99); Total Carbon Dioxide 38 mmol/L; pCO2 77.4 mmHg (35-45); pH 7.27 (7.35-7.45)
--- NOTE | 2024-04-24 04:27 | CPS ---
Pt.'s increase in AVAPS settings approved by at this time. ABG to be obtained around 0600.
[2024-04-24 04:29] LABS: Absolute Lymphocyte Count 0.51 X10^3/uL (0.83-4.51); Absolute Neutrophil Count 8.4 X10^3/uL (2.0-7.7); Basophil# 0.06 X10^3/uL; Basophil% 0.6 % (0-1); Eosinophil# 0.27 X10^3/uL; Eosinophils% 2.7 % (0-5); Hematocrit 30.9 % (40-54); Hemoglobin 9.7 g/dL (13.0-16.5); Lymphocyte # 0.51 X10^3/ul (0.83-4.51); Lymphocyte % 5.1 % (19-41); Mean Corp Hgb Conc 31.4 g/dL (32-36); Mean Corpuscular Hgb 27.6 pg (27.0-32.0); Mean Platelet Vol. 9.3 fl (6.2-12.0); Monocyte# 0.69 X10^3/uL; Monocyte% 6.9 % (0-10); NRBC Flagged by Analyzer 0.4 % (0-5); Neutrophil # 8.36 X10^3/uL (2.7-7.7); POSITIVE DIFFERENTIAL YES; Platelet Count 262 K/mm3 (150-450); RBC Distribution Width CV 16.1 % (11.6-14.6); RBC Distribution Width SD 49.7 fl (35.1-43.9); Red Blood Count 3.51 M/mm3 (4.6-6.2); White Blood Count 10.1 K/mm3 (4.4-11.0)
[2024-04-24] MEDS: 0.9% Saline Lock 10 ML Syringe IV (04:55)
[2024-04-24] MEDS: Aztreonam 2 GM in 0.9% Normal Saline (100mL MB+) 100 ML IV (04:55)
[2024-04-24] MEDS: Heparin Injection (Vial) 5,000 UNIT/ML VIAL 5000 UNIT SC ×2 (04:56→21:06)
[2024-04-24 05:24] LABS: Ferritin 63 ng/mL (26-388); Iron 63 ug/dL (65-175); Iron Binding Capacity,Total 361 ug/dL (250-450); PERCENT IRON SATURATION 17.5 % (15.0-55.0)
[2024-04-24 05:25] LABS: ALB/GLOB Ratio 0.5 RATIO (0.9-2.4); AST(SGOT) 12 U/L (15-37); Alanine Aminotransfer ALT/SGPT 16 U/L (16-61); Albumin, Serum 2.4 g/dL (3.2-5.0); Alkaline Phosphatase 154 U/L (45-117); Anion Gap 7 (5-15); BUN 76 mg/dL (7-18); BUN/Creat Ratio 38.4 RATIO (10-20); Calcium,Total 9.2 mg/dL (8.5-10.1); Chloride 97 mmol/L (98-107); Cholesterol 182 mg/dL (200); Creatinine, Serum 1.98 mg/dL (0.70-1.30); EST Glomerular Filtration Rate 37 mL/min (>60); Est Glom Filt Rate - Afr Amer 45 mL/min (>60); Estimated Creatinine Clearance 56.22 ml/min; Globulin 4.7 g/dL (2.2-4.2); Glucose 212 mg/dL (74-106); High Density Lipoprotein 39 mg/dL; Magnesium 2.7 mg/dL (1.6-2.6); Potassium 5.8 mmol/L (3.5-5.1); Protein, Total 7.1 g/dL (6.4-8.2); Sodium Level 133 mmol/L (136-145); Triglycerides 107 mg/dL; Very Low Density Lipoprotein 21 mg/dL (5-40)
[2024-04-24 05:27] LABS: Phosphorus 3.8 mg/dL (2.5-4.9)
[2024-04-24 05:37] LABS: T4 Free Direct 0.97 ng/dL (0.76-1.46)
[2024-04-24 06:07] LABS: Allen Test Positive; Base Excess 5 mmol/L (-2 to +2); Blood Gas Specimen Type ART; Mode Not entered; O2 Delivery Device BiPAP; PO2 75 mmHG (75-100); RR 16; SITE L Radial; SO2 94 % (95-99); Total Carbon Dioxide 32 mmol/L; pCO2 50.9 mmHg (35-45); pH 7.38 (7.35-7.45)
[2024-04-24] MEDS: Ipratropium/Albuterol Sulfate 3 ML AMPUL.NEB INHALATION ×4 (07:21→19:50)
[2024-04-24] MEDS: Insulin Lispro 100 UNIT/ML INSULN.PEN SC ×4 (08:27→21:06)
[2024-04-24] MEDS: Insulin Lispro 100 UNIT/ML INSULN.PEN 10 UNIT SC ×3 (08:28→16:35)
[2024-04-24] MEDS: Vancomycin HCl 2,000 MG in 0.9% Normal Saline (500mL Bag) 500 ML 250 MG IV (08:33)
--- NOTE | 2024-04-24 08:41 | EX.PCM.CONCC ---
Assessment & Plan Assessment/Plan (1) COVID-19: PLAN: Plan RECOMMENDATIONS: 1. Continue PAP therapy with breaks as tolerated. 2. Wean FiO2 to maintain saturations 88 to 92%. 3. Continue empiric antimicrobials, pending infectious workup. 4. Continue remdesivir and Decadron. 5. Continue scheduled bronchodilators. 6. Continue appropriate DVT prophylaxis. 7. The patient should remain n.p.o., pending improvement in mental state and respiratory status. IMPRESSIONS: 1. Acute on chronic combined respiratory failure The patient has a known history of COPD and obstructive sleep apnea, for which he is noncompliant with nocturnal PAP therapy. He has been lost to outpatient pulmonary follow-up since 2020. His current clinical state is likely the consequence of underlying obstructive lung disease in a state of exacerbation due to COVID-19 pneumonia. In addition to his sleep apnea, the patient likely has a component of alveolar hypoventilation secondary to super morbid obesity with susceptibility to CO2 narcosis due to nonuse of PAP therapy. For now, the patient will be maintained on noninvasive positive pressure ventilatory support. Arterial blood gases improved this morning. Given his history of COPD, plan to continue scheduled bronchodilators along with Decadron, remdesivir and antimicrobials to cover for secondary bacterial pneumonia. 2. Acute on chronic kidney disease Most likely prerenal in etiology. Continue to monitor urine output for now. No current indication for renal replacement therapy. 3. Metabolic encephalopathy Most likely secondary to presenting hypercapnia, which has responded appropriately to noninvasive positive pressure ventilatory support. Continue current supportive measures. 4. History of hypertension/hyperlipidemia/diabetes mellitus/GERD/super morbid obesity Complicates care, management, recovery and prognosis. Continue home medications as indicated. Continue basal and sliding scale insulin coverage. Physical therapy will need to work with the patient once medically stabilized. TIME: 36 minutes of critical care time, independent of procedures, was spent addressing the patient's acute on chronic combined respiratory failure, COVID-19 pneumonia, acute on chronic kidney disease, metabolic encephalopathy, review of all data and collaboration with care team. HPI Consult Data Date of Consult: 04/24/24 HPI Narrative Reason for Consultation: Respiratory failure, COVID-19 HPI Narrative: The patient is a 58-year-old male, with a history as outlined below, who presented to the emergency department on April 23 with shortness of breath. The patient was last admitted to the hospital in February 2024 with acute on chronic combined respiratory failure secondary to COPD exacerbation related to parainfluenza. The patient was seen by Dr. Anderson in the pulmonary medicine clinic in June 2020 due to a history of COPD, chronic hypoxemic respiratory failure and obstructive sleep apnea with PAP noncompliance. Pulmonary function studies completed in June 2019 demonstrated a partially reversible moderate large airways obstructive ventilatory impairment. The patient has been lost to follow-up in the pulmonary medicine clinic since 2020. Although still quite somnolent this morning, the patient was able to confirm to me that he does not utilize any form of PAP therapy at his nursing facility. On presentation to the emergency department, the patient was documented to be afebrile hemodynamically stable. He was, nevertheless tachypneic and hypoxemic. Laboratory evaluation revealed a normal white blood cell count. Hemoglobin was noted to be 9.7 g/dL with a platelet count of 269,000. Initial arterial blood gas was notable for a pH of 7.26 with a pCO2 of 80 and pO2 of 72. Chemistry profile was notable for a sodium of 132, potassium of 5.9, BUN of 81 and creatinine of 2.2. Lactate was normal at 1.5. The patient tested positive for COVID-19. Chest x-ray demonstrated bilateral lung infiltrates. The patient was ultimately placed on AVAPS therapy and initiated on bronchodilators, Decadron and antimicrobials. He was admitted to the medical intensive care unit for further management. Repeat arterial blood gas this morning demonstrated improvement with a pH of 7.38, pCO2 of 51 and pO2 of 75. Creatinine has improved to 1.98. [facility] Medical History (Updated 04/24/24 @ 06:[address] Son Pérez, ) Parainfluenza infection MSSA (methicillin susceptible Staphylococcus aureus) pneumonia Morbid obesity CKD (chronic kidney disease), stage III MARYLU (obstructive sleep apnea) HLD (hyperlipidemia) Insulin dependent diabetes mellitus Chronic respiratory failure with hypoxia and hypercapnia (HFpEF) heart failure with preserved ejection fraction Non-smoker Asthma HTN (hypertension) COPD (chronic obstructive pulmonary disease) Non-compliance Lymphedema Ulcer of left lower extremity with fat layer exposed Ulcer of right lower extremity with fat layer exposed Home Medications ?Medication ?Instructions ?Recorded ?Last Taken ?Type omeprazole magnesium 20 mg 20 mg PO DAILY stomach 06/01/19 12/13/23 History tablet,delayed release portable nebulizer #1 ea 12/31/20 Unknown Rx ipratropium 0.5 mg-albuterol 3 mg 3 ml inhalation Q4H PRN shortness 01/06/21 12/13/23 Rx (2.5 mg base)/3 mL nebulization of breath or wheezing #180 mL soln liraglutide 0.6 mg/0.1 mL (18 mg/3 1.8 mg subcut DAILY diabetes 06/29/21 12/13/23 History mL) subcutaneous pen injector ([employer] 3-Benja) carvedilol 25 mg tablet 25 mg PO BID heart 12/14/23 12/13/23 History cetirizine 10 mg tablet (24Hour 10 mg PO DAILY PRN allergy symptoms 12/14/23 12/14/23 History Allergy) gentamicin 0.1 % topical ointment 1 applic topical DAILY PRN skin 12/14/23 12/13/23 History irritation hydrocortisone 2.5 % topical cream 1 applic topical DAILY PRN skin 12/14/23 12/13/23 History irritation albuterol sulfate 2.5 mg/3 mL 2.5 mg (3 mL) inhalation Q2H PRN 03/19/24 Unknown Rx (0.083 %) solution for nebulization PRN Dyspnea, wheezing #0 mL aluminum-mag hydroxide-simethicone 30 ml PO Q6H PRN PRN Gastric 03/19/24 Unknown Rx 400 mg-400 mg-40 mg/5 mL oral susp Burning #0 mL (Mag-Al Plus Extra Strength) bumetanide 2 mg tablet 2 mg PO DAILY #0 tabs 03/19/24 Unknown Rx guaifenesin 100 mg/5 mL oral liquid 100 mg (5 mL) G-tube Q4H PRN PRN 03/19/24 Unknown Rx Cough #0 mL insulin glargine-yfgn 100 unit/mL 30 unit (0.3 mL) subcut BID #0 mL 03/19/24 Unknown Rx (3 mL) subcutaneous pen insulin lispro 100 unit/mL 10 unit (0.1 mL) subcut TIDCM #0 mL 03/19/24 Unknown Rx subcutaneous pen (Humalog KwikPen (U-100) Insulin) insulin lispro 100 unit/mL See Protocol subcut ACHS #0 mL 03/19/24 Unknown Rx subcutaneous pen (Humalog KwikPen (U-100) Insulin) ipratropium 0.5 mg-albuterol 3 mg 3 ml inhalation Q4HWA.RT 2 days #0 03/19/24 Unknown Rx (2.5 mg base)/3 mL nebulization mL soln isosorbide mononitrate 60 mg 60 mg PO DAILY #0 tabs 03/19/24 Unknown Rx tablet,extended release 24 hr losartan 50 mg tablet 50 mg PO DAILY #0 tabs 03/19/24 Unknown Rx sennosides 8.6 mg-docusate sodium 2 tab G-tube BID PRN PRN 03/19/24 Unknown Rx 50 mg tablet (Stimulant Laxative Constipation #0 tabs Plus) Allergy/AdvReac Type Severity Reaction Status Date / Time amlodipine (From [facility]) Allergy Other Verified 04/23/24 22:58 apraclonidine Allergy Other Verified 04/23/24 22:58 diltiazem Allergy Unknown Verified 04/23/24 22:58 doxycycline Allergy Other Verified 04/23/24 22:58 enalapril Allergy Other Verified 04/23/24 22:58 glimepiride Allergy Other Verified 04/23/24 22:58 glipizide (From Glucotrol) Allergy Other Verified 04/23/24 22:58 hydralazine Allergy Other Verified 04/23/24 22:58 ibuprofen Allergy Other Verified 04/23/24 22:58 Influenza Virus Vaccines Allergy Unknown Verified 04/23/24 22:58 latex Allergy Other Verified 04/23/24 22:58 lisinopril Allergy Other Verified 04/23/24 22:58 metoprolol Allergy Other Verified 04/23/24 22:58 montelukast Allergy Other Verified 04/23/24 22:58 Penicillins Allergy Other Verified 04/23/24 22:58 pravastatin Allergy Other Verified 04/23/24 22:58 prednisone Allergy Other Verified 04/23/24 22:58 propranolol Allergy Unknown Verified 04/23/24 22:58 simvastatin (From Zocor) Allergy Other Verified 04/23/24 22:58 sulfamethoxazole (From Allergy Other Verified 04/23/24 22:58 Bactrim) trimethoprim (From Bactrim) Allergy Other Verified 04/23/24 22:58 Family History Father Diabetes Hyperlipemia Heart disease Mother CHF (congestive heart failure) Heart disease CVA (cerebral vascular accident) Surgical History Hx of NIKKI Social History housing: house current occupational status: unemployed and disabled Smoking Status: Never smoker alcohol intake: never substance use type: does not use ROS Review of Systems ROS Unobtainable: due to mental status Physical Exam Const Constitutional Narrative: Arousable to verbal stimulation but will fall quickly back to sleep when left unstimulated. Super morbidly obese. General Appearance: lethargic and ill appearing HEENT normocephalic and head/scalp atraumatic Eyes PERRL, EOMs intact bilaterally and conjunctivae normal Neck supple Neck Narrative: Large neck circumference with redundant soft tissue. General: trachea midline Chest inspection of chest normal Resp normal respiratory effort Auscultation: diminished lung sounds Cardio regular rate and regular rhythm GI normal to inspection, nondistended, normoactive bowel sounds Extremity General Extremity: edema; Negative for clubbing Skin General Skin Exam: venous stasis and dermatitis Neuro CN's II-XII intact bilaterally and no focal motor deficits Psych Mood & Affect: flat affect Lab / Micro Data 04/24/24 04:17 04/24/24 04:17 Labs: Laboratory Results - last 24 hr 04/23/24 23:10: WBC 9.0, RBC 3.59 L, Hgb 9.7 L, Hct 31.5 L, MCV 87.7, MCH 27.0, MCHC 30.8 L, RDW Std Deviation 49.5 H, RDW Coeff of Jung 15.9 H, Plt Count 269, MPV 9.6, Immature Gran % (Auto) 3.000 H, Neut % (Auto) 76.3 H, Lymph % (Auto) 9.5 L, [place] % (Auto) 7.5, Eos % (Auto) 3.1, Baso % (Auto) 0.6, Absolute Neuts (auto) 6.9, Absolute Lymphs (auto) 0.85, Nucleated RBC % 0.4, Sodium 132 L, Potassium 5.9 H, Chloride 98, Carbon Dioxide 30.0, Anion Gap 5, BUN 81 H, Creatinine 2.20 H, Estim Creat Clear Calc 50.82, Est GFR (MDRD) Af Amer 40 L, Est GFR (MDRD) Non-Af 33 L, BUN/Creatinine Ratio 36.8 H, Glucose 243 H, Lactic Acid 1.5, Calcium 8.8, Magnesium 2.7 H, B-Natriuretic Peptide 136.0 H, TSH 4.790 H 04/24/24 04:17: WBC 10.1, RBC 3.51 L, Hgb 9.7 L, Hct 30.9 L, MCV 88.0, MCH 27.6, MCHC 31.4 L, RDW Std Deviation 49.7 H, RDW Coeff of Jung 16.1 H, Plt Count 262, MPV 9.3, Immature Gran % (Auto) 1.700 H, Neut % (Auto) 83.0 H, Lymph % (Auto) 5.1 L, [place] % (Auto) 6.9, Eos % (Auto) 2.7, Baso % (Auto) 0.6, Absolute Neuts (auto) 8.4 H, Absolute Lymphs (auto) 0.51 L, Nucleated RBC % 0.4, Sodium 133 L, Potassium 5.8 H, Chloride 97 L, Carbon Dioxide 29.0, Anion Gap 7, BUN 76 H, Creatinine 1.98 H, Estim Creat Clear Calc 56.22, Est GFR (MDRD) Af Amer 45 L, Est GFR (MDRD) Non-Af 37 L, BUN/Creatinine Ratio 38.4 H, Glucose 212 H, Calcium 9.2, Phosphorus 3.8, Magnesium 2.7 H, Iron 63 L, TIBC 361, Iron Saturation 17.5, Ferritin 63, Total Bilirubin 0.40, AST 12 L, ALT 16, Alkaline Phosphatase 154 H, Total Protein 7.1, Albumin 2.4 L, Globulin 4.7 H, Albumin/Globulin Ratio 0.5 L, Triglycerides 107, Cholesterol 182, LDL Cholesterol 122, VLDL Cholesterol 21, HDL Cholesterol 39 L, Free T4 0.97, Free T3 pg/dL 2.0 L Micro: Microbiology 04/24/24 04:17 Urine, Random Legionella Antigen - Final 04/24/24 04:17 Urine, Random Streptococcus pneumoniae Antigen (M - Final 04/23/24 23:24 Mucosa - Nose SARS-CoV-2, Influenza & RSV (PCR) - Final SARS-CoV-2 (COVID 19 PCR) ABG Data ABG results: ABG 04/24/24 04/24/24 04/24/24 01:49 03:36 06:02 Specimen Type ART ART ART Sample Site L Radial L Radial L Radial pH 7.26 L 7.27 L 7.38 Bicarbonate Actual 35.9 H 35.4 H 30.0 H Total CO2 38 38 32 Base Excess 9 H 8 H 5 H O2 Saturation 90 L 90 L 94 L O2 % 8.0 45.0 40.0 ABG pCO2 80.4 H* 77.4 H* 50.9 H ABG pO2 72 L 69 L 75 Catarino Test Positive Positive Positive Respiration Rate 16 O2 Delivery Device HFNC BiPAP BiPAP Vent Mode Not entered Not entered Not entered Tidal Volume 550.0 Crit Call To/Read Back Yes Yes Blood Gas Notified Whom Joanna Marshall Blood Gas Notified Time 01:51:22 03:38:15 Clinical Comments Imaging Radiology Impression Chest X-Ray 04/23/24 23:15 IMPRESSION: Suspect bilateral lung infiltrates with superimposed pulmonary venous congestion. Reading Location: [facility] Charges/Coding Procedures Hospitalists Procedures: 75761 Critical Care 1st Hr
--- NOTE | 2024-04-24 08:57 | CASEMGMT ---
Social Work Pt admitted from the [facility]. Pt is currently on Bipap. SW placed call to pt brother Chuck who confirms plan is for pt to return to [facility]. DC assistant to the dean to send updates and confirm if pt needs precert to return. ERNIE Carreon
[2024-04-24 09:02] LABS: Hemoglobin A1c 8.5 % (3.8-5.6)
--- NOTE | 2024-04-24 09:03 | CASEMGMT ---
Addendum entered by Aida Matute 04/25/24 08:48: Precert not needed. Pt is a bedhold. Aida Matute DC Planning Asst. Original Note: Updates sent to [facility] with note asking if new precert is needed. Awaiting response. Aida Matute DC Planning Asst.
[2024-04-24 09:28] LABS: Alkaline Phosphatase 157 U/L (45-117)
[2024-04-24] MEDS: Meropenem 1 GM in 0.9% Normal Saline (100mL MB+) 100 ML IV ×3 (09:29→21:04)
--- NOTE | 2024-04-24 09:49 | PCM.RX.CS ---
Consult Antibiotic Management Pharmacy has been consulted to manage selected antibiotic: Vancomycin Type of Intervention Type of Consult: New start Labs Labs: Sodium 133 mmol/L (136-145) L 04/24/24 04:17 Potassium 5.8 mmol/L (3.5-5.1) H 04/24/24 04:17 Chloride 97 mmol/L (98-107) L 04/24/24 04:17 Carbon Dioxide 29.0 mmol/L (21.0-32.0) 04/24/24 04:17 Anion Gap 7 (5-15) 04/24/24 04:17 BUN 76 mg/dL (7-18) H 04/24/24 04:17 Creatinine 1.98 mg/dL (0.70-1.30) H 04/24/24 04:17 Est GFR (MDRD) Af Amer 45 mL/min (>60) L 04/24/24 04:17 Est GFR (MDRD) Non-Af 37 mL/min (>60) L 04/24/24 04:17 BUN/Creatinine Ratio 38.4 RATIO (10-20) H 04/24/24 04:17 Glucose 212 mg/dL (74-106) H 04/24/24 04:17 Microbiology Microbiology: Microbiology 04/24/24 04:17 Urine, Random Legionella Antigen - Final 04/24/24 04:17 Urine, Random Streptococcus pneumoniae Antigen (M - Final 04/23/24 23:24 Mucosa - Nose SARS-CoV-2, Influenza & RSV (PCR) - Final SARS-CoV-2 (COVID 19 PCR) Dosing Weight Weight used for dosin kg Estimated Creatinine Clearance Estimated Creatinine Clearance: 56 ML/MIN Goal Trough Goal Trough: 15-20 mcg/mL Pharmacy Plan for Drug Dosing Pharmacy Plan for Drug Dosing: Give 2000mg IV x1, then continue with 1250mg q12h per [facility] dosing protocol. Check a trough before the 4th overall dose. Pharmacy Service will continue to monitor and adjust dosing as required. Follow-Up Labs Follow-Up Labs: Trough: Vancomycin Date/Time Labs Ordered Labs to be done on [date and time ordered]: 04/25/24 20:30
[2024-04-24] MEDS: Zinc Sulfate 50 mg zinc (220 mg) ORAL capsule PO (10:19)
[2024-04-24] MEDS: Pantoprazole Sodium 20 MG Tablet PO (10:20)
[2024-04-24] MEDS: Isosorbide Mononitrate 60 MG Tablet PO (10:20)
[2024-04-24] MEDS: Furosemide 100 MG/10 ML Vial 60 MG IV (10:20)
[2024-04-24] MEDS: Cholecalciferol (Vit D3) 125 MCG CAPSULE (5,000 UNITS) PO (10:20)
[2024-04-24] MEDS: Remdesivir 200 MG in 0.9% Normal Saline (250mL Bag) 210 ML 250 MG IV (10:54)
--- NOTE | 2024-04-24 10:57 | WOUNDNOTE ---
Was asked to see patient for lichenification to bilateral lower legs. pt is known to this nurse from previous admissions. there are no open wounds noted at this time. there is some lichenification, but it does appear improved from last admission. washed legs and feet with soap and water. pat dry. applied lotion and wrapped with kerlix. applied TRINITY wraps from the base of the toes to just below the knees. pt tolerated well.
--- NOTE | 2024-04-24 11:11 | CON.PCM.RE_ITS ---
Assessment & Plan Assessment/Plan (1) EITAN (acute kidney injury): PLAN: Appears to have CKD stage IIIa. As of November 2023, his creatinine was around 1.4-1.5. He did have an episode of acute renal failure when he was admitted in February. Discharge creatinine was around 1.9. Currently creatinine is around 2.0-2.2 range. Nonoliguric. Renal ultrasound last admission without any hydronephrosis. No further EITAN workup needed at this point. EITAN is likely related to ongoing events Hyperkalemia. Glucose values are acceptable. Bicarbonate is okay. Chest x-ray looks somewhat wet. Last echocardiogram with good ejection fraction. Okay for Lasix today. He has also been ordered a dose of Kayexalate. About to have a bowel movement. Repeat BMP later today. Discussed with hospital HPI Consult Data Date of Consult: 04/24/24 HPI Narrative Reason for Consultation: Acute renal failure HPI Narrative: BAILEY CARDENAS, is a 58 M who presents to the hospital with shortness of breath. Nephrology on consultation in view of acute renal failure, hyperkalemia. Ongoing events include COVID-pneumonia, suspected superimposed pneumonia, likely volume overload, hypercapnic respiratory failure History of diabetes, hypertension. It appears that he has CKD stage III A, baseline creatinine around 1.5. He was recently admitted here last month with parainfluenza pneumonia, acute on chronic renal failure. Currently appears somewhat short of breath. Urine output has been okay. [facility] Medical History (Updated 04/24/24 @ 06:[address] Son Pérez, DO) Parainfluenza infection MSSA (methicillin susceptible Staphylococcus aureus) pneumonia Morbid obesity CKD (chronic kidney disease), stage III MARYLU (obstructive sleep apnea) HLD (hyperlipidemia) Insulin dependent diabetes mellitus Chronic respiratory failure with hypoxia and hypercapnia (HFpEF) heart failure with preserved ejection fraction Non-smoker Asthma HTN (hypertension) COPD (chronic obstructive pulmonary disease) Non-compliance Lymphedema Ulcer of left lower extremity with fat layer exposed Ulcer of right lower extremity with fat layer exposed Home Medications ?Medication ?Instructions ?Recorded ?Last Taken ?Type omeprazole magnesium 20 mg 20 mg PO DAILY stomach 06/01/19 12/13/23 History tablet,delayed release portable nebulizer #1 ea 12/31/20 Unknown Rx ipratropium 0.5 mg-albuterol 3 mg 3 ml inhalation Q4H PRN shortness 01/06/21 12/13/23 Rx (2.5 mg base)/3 mL nebulization of breath or wheezing #180 mL soln liraglutide 0.6 mg/0.1 mL (18 mg/3 1.8 mg subcut DAILY diabetes 06/29/21 12/13/23 History mL) subcutaneous pen injector ([employer] 3-Benja) carvedilol 25 mg tablet 25 mg PO BID heart 12/14/23 12/13/23 History cetirizine 10 mg tablet (24Hour 10 mg PO DAILY PRN allergy symptoms 12/14/23 12/14/23 History Allergy) gentamicin 0.1 % topical ointment 1 applic topical DAILY PRN skin 12/14/23 12/13/23 History irritation hydrocortisone 2.5 % topical cream 1 applic topical DAILY PRN skin 12/14/23 12/13/23 History irritation albuterol sulfate 2.5 mg/3 mL 2.5 mg (3 mL) inhalation Q2H PRN 03/19/24 Unknown Rx (0.083 %) solution for nebulization PRN Dyspnea, wheezing #0 mL aluminum-mag hydroxide-simethicone 30 ml PO Q6H PRN PRN Gastric 03/19/24 Unknown Rx 400 mg-400 mg-40 mg/5 mL oral susp Burning #0 mL (Mag-Al Plus Extra Strength) bumetanide 2 mg tablet 2 mg PO DAILY #0 tabs 03/19/24 Unknown Rx guaifenesin 100 mg/5 mL oral liquid 100 mg (5 mL) G-tube Q4H PRN PRN 03/19/24 Unknown Rx Cough #0 mL insulin glargine-yfgn 100 unit/mL 30 unit (0.3 mL) subcut BID #0 mL 03/19/24 Unknown Rx (3 mL) subcutaneous pen insulin lispro 100 unit/mL 10 unit (0.1 mL) subcut TIDCM #0 mL 03/19/24 Unknown Rx subcutaneous pen (Humalog KwikPen (U-100) Insulin) insulin lispro 100 unit/mL See Protocol subcut ACHS #0 mL 03/19/24 Unknown Rx subcutaneous pen (Humalog KwikPen (U-100) Insulin) ipratropium 0.5 mg-albuterol 3 mg 3 ml inhalation Q4HWA.RT 2 days #0 03/19/24 Unknown Rx (2.5 mg base)/3 mL nebulization mL soln isosorbide mononitrate 60 mg 60 mg PO DAILY #0 tabs 03/19/24 Unknown Rx tablet,extended release 24 hr losartan 50 mg tablet 50 mg PO DAILY #0 tabs 03/19/24 Unknown Rx sennosides 8.6 mg-docusate sodium 2 tab G-tube BID PRN PRN 03/19/24 Unknown Rx 50 mg tablet (Stimulant Laxative Constipation #0 tabs Plus) Allergy/AdvReac Type Severity Reaction Status Date / Time amlodipine (From [facility]) Allergy Other Verified 04/23/24 22:58 apraclonidine Allergy Other Verified 04/23/24 22:58 diltiazem Allergy Unknown Verified 04/23/24 22:58 doxycycline Allergy Other Verified 04/23/24 22:58 enalapril Allergy Other Verified 04/23/24 22:58 glimepiride Allergy Other Verified 04/23/24 22:58 glipizide (From Glucotrol) Allergy Other Verified 04/23/24 22:58 hydralazine Allergy Other Verified 04/23/24 22:58 ibuprofen Allergy Other Verified 04/23/24 22:58 Influenza Virus Vaccines Allergy Unknown Verified 04/23/24 22:58 latex Allergy Other Verified 04/23/24 22:58 lisinopril Allergy Other Verified 04/23/24 22:58 metoprolol Allergy Other Verified 04/23/24 22:58 montelukast Allergy Other Verified 04/23/24 22:58 Penicillins Allergy Other Verified 04/23/24 22:58 pravastatin Allergy Other Verified 04/23/24 22:58 prednisone Allergy Other Verified 04/23/24 22:58 propranolol Allergy Unknown Verified 04/23/24 22:58 simvastatin (From Zocor) Allergy Other Verified 04/23/24 22:58 sulfamethoxazole (From Allergy Other Verified 04/23/24 22:58 Bactrim) trimethoprim (From Bactrim) Allergy Other Verified 04/23/24 22:58 Family History Father Diabetes Hyperlipemia Heart disease Mother CHF (congestive heart failure) Heart disease CVA (cerebral vascular accident) Surgical History Hx of MARLENYIK Social History housing: house current occupational status: unemployed and disabled Smoking Status: Never smoker alcohol intake: never substance use type: does not use ROS ROS Narrative Negative except above Physical Exam Narrative Alert awake oriented x 3 no obvious distress no pallor no icterus no JVD s1s2 no murmurs lungs clear abdomen soft no organomegaly no edema no cyanosis rivera + Lab / Micro Data 04/24/24 04:17 04/24/24 04:17 Labs: Laboratory Results - last 24 hr 04/23/24 23:10: WBC 9.0, RBC 3.59 L, Hgb 9.7 L, Hct 31.5 L, MCV 87.7, MCH 27.0, MCHC 30.8 L, RDW Std Deviation 49.5 H, RDW Coeff of Jung 15.9 H, Plt Count 269, MPV 9.6, Immature Gran % (Auto) 3.000 H, Neut % (Auto) 76.3 H, Lymph % (Auto) 9.5 L, [place] % (Auto) 7.5, Eos % (Auto) 3.1, Baso % (Auto) 0.6, Absolute Neuts (auto) 6.9, Absolute Lymphs (auto) 0.85, Nucleated RBC % 0.4, Sodium 132 L, P otassium 5.9 H, Chloride 98, Carbon Dioxide 30.0, Anion Gap 5, BUN 81 H, C reatinine 2.20 H, Estim Creat Clear Calc 50.82, Est GFR (MDRD) Af Amer 40 L, Est GFR (MDRD) Non-Af 33 L, BUN/Creatinine Ratio 36.8 H, Glucose 243 H, Lactic Acid 1.5, Calcium 8.8, Magnesium 2.7 H, B-Natriuretic Peptide 136.0 H, TSH 4.790 H 04/24/24 04:17: WBC 10.1, RBC 3.51 L, Hgb 9.7 L, Hct 30.9 L, MCV 88.0, MCH 27.6, MCHC 31.4 L, RDW Std Deviation 49.7 H, RDW Coeff of Jung 16.1 H, Plt Count 262, MPV 9.3, Immature Gran % (Auto) 1.700 H, Neut % (Auto) 83.0 H, Lymph % (Auto) 5.1 L, [place] % (Auto) 6.9, Eos % (Auto) 2.7, Baso % (Auto) 0.6, Absolute Neuts (auto) 8.4 H, Absolute Lymphs (auto) 0.51 L, Nucleated RBC % 0.4, Sodium 133 L, Potassium 5.8 H, Chloride 97 L, Carbon Dioxide 29.0, Anion Gap 7, BUN 76 H, C reatinine 1.98 H, Estim Creat Clear Calc 56.22, Est GFR (MDRD) Af Amer 45 L, Est GFR (MDRD) Non-Af 37 L, BUN/Creatinine Ratio 38.4 H, Glucose 212 H, Hemoglobin A1c 8.5 H, Calcium 9.2, Phosphorus 3.8, Magnesium 2.7 H, Iron 63 L, TIBC 361, Iron Saturation 17.5, Ferritin 63, Total Bilirubin 0.40, AST 12 L, ALT 16, A lkaline Phosphatase 154 H 04/24/24 04:17: Alkaline Phosphatase 157 H, Total Protein 7.1, Albumin 2.4 L, G lobulin 4.7 H, Albumin/Globulin Ratio 0.5 L, Triglycerides 107, Cholesterol 182, LDL Cholesterol 122, VLDL Cholesterol 21, HDL Cholesterol 39 L, Free T4 0.97, F ree T3 pg/dL 2.0 L Micro: Microbiology 04/24/24 04:17 Urine, Random Legionella Antigen - Final 04/24/24 04:17 Urine, Random Streptococcus pneumoniae Antigen (M - Final 04/23/24 23:24 Mucosa - Nose SARS-CoV-2, Influenza & RSV (PCR) - Final SARS-CoV-2 (COVID 19 PCR) ABG Data ABG results: ABG 04/24/24 04/24/24 04/24/24 01:49 03:36 06:02 Specimen Type ART ART ART Sample Site L Radial L Radial L Radial pH 7.26 L 7.27 L 7.38 Bicarbonate Actual 35.9 H 35.4 H 30.0 H Total CO2 38 38 32 Base Excess 9 H 8 H 5 H O2 Saturation 90 L 90 L 94 L O2 % 8.0 45.0 40.0 ABG pCO2 80.4 H* 77.4 H* 50.9 H ABG pO2 72 L 69 L 75 Catarino Test Positive Positive Positive Respiration Rate 16 O2 Delivery Device HFNC BiPAP BiPAP Vent Mode Not entered Not entered Not entered Tidal Volume 550.0 Crit Call To/Read Back Yes Yes Blood Gas Notified Whom Joanna Marshall Blood Gas Notified Time 01:51:22 03:38:15 Clinical Comments Imaging Radiology Impression Chest X-Ray 04/23/24 23:15 IMPRESSION: Suspect bilateral lung infiltrates with superimposed pulmonary venous congestion. Reading Location: [facility]
--- NOTE | 2024-04-24 11:19 | WOUNDNOTE ---
skin photo: right lower leg
--- NOTE | 2024-04-24 11:20 | WOUNDNOTE ---
skin photo: left lower leg
[2024-04-24 11:42] LABS: Bedside Glucose 253 mg/dL (74-106)
--- NOTE | 2024-04-24 13:21 | PN.HOSP_ITS ---
Reason for Visit Reason for Visit: Diagnoses Morbid (severe) obesity due to excess calories (04/24/24) Hyperkalemia (04/24/24) Pneumonia due to coronavirus disease 2019 (04/24/24) Chronic obstructive pulmonary disease with (acute) exacerbation (04/24/24) Acute and chronic respiratory failure with hypercapnia (04/24/24) Cellulitis of unspecified part of limb (04/24/24) Acute kidney failure, unspecified (04/24/24) Chronic kidney disease, stage 3 unspecified (04/24/24) Adverse effect of unspecified drugs, medicaments and biological substances, initial encounter (04/24/24) COVID-19 (04/24/24) Body mass index [BMI] 60.0-69.9, adult (04/24/24) Subjective Subjective 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 Patient is still lethargic with shallow breathing Physical exam General: Awake, Lethargic. BMI 63.3 kg/m?, morbid obesity HEENT: Atraumatic, PERRLA, EOMI, Normocephalic Oral: On BiPAP/NIPPV Neck: Short and wide, supple, JVP could not be easily visualized Chest wall/Lungs: Air entry diminished in bilateral lung bases. No crepitation/rhonchi Cardiovascular: Sinus rhythm, Normal S1, Normal S2, No M/G/R Abdomen: Bowel Sounds Present, Soft, Non Tender, Non-Distended : No dysuria. No renal angle tenderness. No suprapubic tenderness. Extremities: Bilateral edema. Chronic lymphedema with hypertrophy of soft tissue Skin: No rashes, No breakdown Musculoskeletal: No Tenderness to Palpation of Joints or Extremities. ROM decreased Neurological: Diminished responsiveness, hard to follow command patient on BiPAP. Detailed neuroexam unobtainable Psych/Mental Status: Flat affect S Objective Data Objective Data Vital Signs: Vital Signs Temp Pulse Resp BP Pulse Ox O2 Del Method O2 Flow Rate 97.9 F 102 H 28 H 174/70 H 96 Bi-pap 10 04/24/24 04:06 04/24/24 07:21 04/24/24 07:21 04/24/24 07:00 04/24/24 07:21 04/24/24 07:00 04/24/24 01:00 FiO2 40 04/24/24 07:21 Oxygen Flow Rate (L/min) 10 Oxygen Delivery Method Bi-pap Weight: 357 lb 2.382 oz Body Mass Index (BMI) 63.2 Intake & Output: Intake and Output for Last 24 Hours 04/22/24 04/23/24 04/24/24 23:59 23:59 23:59 Intake Total 380 / 380 Output Total 50 / 50 Balance 330 / 330 Lab / Micro Data 04/24/24 04:17 04/24/24 04:17 Labs: Laboratory Results - last 24 hr 04/23/24 23:10: WBC 9.0, RBC 3.59 L, Hgb 9.7 L, Hct 31.5 L, MCV 87.7, MCH 27.0, MCHC 30.8 L, RDW Std Deviation 49.5 H, RDW Coeff of Jung 15.9 H, Plt Count 269, MPV 9.6, Immature Gran % (Auto) 3.000 H, Neut % (Auto) 76.3 H, Lymph % (Auto) 9.5 L, [place] % (Auto) 7.5, Eos % (Auto) 3.1, Baso % (Auto) 0.6, Absolute Neuts (auto) 6.9, Absolute Lymphs (auto) 0.85, Nucleated RBC % 0.4, Sodium 132 L, P otassium 5.9 H, Chloride 98, Carbon Dioxide 30.0, Anion Gap 5, BUN 81 H, C reatinine 2.20 H, Estim Creat Clear Calc 50.82, Est GFR (MDRD) Af Amer 40 L, Est GFR (MDRD) Non-Af 33 L, BUN/Creatinine Ratio 36.8 H, Glucose 243 H, Lactic Acid 1.5, Calcium 8.8, Magnesium 2.7 H, B-Natriuretic Peptide 136.0 H, TSH 4.790 H 04/24/24 04:17: WBC 10.1, RBC 3.51 L, Hgb 9.7 L, Hct 30.9 L, MCV 88.0, MCH 27.6, MCHC 31.4 L, RDW Std Deviation 49.7 H, RDW Coeff of Jung 16.1 H, Plt Count 262, MPV 9.3, Immature Gran % (Auto) 1.700 H, Neut % (Auto) 83.0 H, Lymph % (Auto) 5.1 L, [place] % (Auto) 6.9, Eos % (Auto) 2.7, Baso % (Auto) 0.6, Absolute Neuts (auto) 8.4 H, Absolute Lymphs (auto) 0.51 L, Nucleated RBC % 0.4, Sodium 133 L, Potassium 5.8 H, Chloride 97 L, Carbon Dioxide 29.0, Anion Gap 7, BUN 76 H, C reatinine 1.98 H, Estim Creat Clear Calc 56.22, Est GFR (MDRD) Af Amer 45 L, Est GFR (MDRD) Non-Af 37 L, BUN/Creatinine Ratio 38.4 H, Glucose 212 H, Calcium 9.2, Phosphorus 3.8, Magnesium 2.7 H, Iron 63 L, TIBC 361, Iron Saturation 17.5, Ferritin 63, Total Bilirubin 0.40, AST 12 L, ALT 16, Alkaline Phosphatase 154 H , Total Protein 7.1, Albumin 2.4 L, Globulin 4.7 H, Albumin/Globulin Ratio 0.5 L , Triglycerides 107, Cholesterol 182, LDL Cholesterol 122, VLDL Cholesterol 21, HDL Cholesterol 39 L, Free T4 0.97, Free T3 pg/dL 2.0 L Micro: Microbiology 04/24/24 04:17 Urine, Random Legionella Antigen - Final 04/24/24 04:17 Urine, Random Streptococcus pneumoniae Antigen (M - Final 04/23/24 23:24 Mucosa - Nose SARS-CoV-2, Influenza & RSV (PCR) - Final SARS-CoV-2 (COVID 19 PCR) ABG Data ABG results: ABG 04/24/24 04/24/24 04/24/24 01:49 03:36 06:02 Specimen Type ART ART ART Sample Site L Radial L Radial L Radial pH 7.26 L 7.27 L 7.38 Bicarbonate Actual 35.9 H 35.4 H 30.0 H Total CO2 38 38 32 Base Excess 9 H 8 H 5 H O2 Saturation 90 L 90 L 94 L O2 % 8.0 45.0 40.0 ABG pCO2 80.4 H* 77.4 H* 50.9 H ABG pO2 72 L 69 L 75 Catarino Test Positive Positive Positive Respiration Rate 16 O2 Delivery Device HFNC BiPAP BiPAP Vent Mode Not entered Not entered Not entered Tidal Volume 550.0 Crit Call To/Read Back Yes Yes Blood Gas Notified Whom Joanna Marshall Blood Gas Notified Time 01:51:22 03:38:15 Clinical Comments Radiography Diagnostic Testing: Radiology Impression Chest X-Ray 04/23/24 23:15 IMPRESSION: Suspect bilateral lung infiltrates with superimposed pulmonary venous congestion. Reading Location: [facility] Assessment & Plan Assessment/Plan (1) Cellulitis: QUALIFIERS: Laterality: unspecified laterality Site of cellulitis: extremity Site of cellulitis of extremity: lower extremity Q ualified Code(s): L03.119 - Cellulitis of unspecified part of limb (2) Pneumonia due to 2019 novel coronavirus: (3) COPD exacerbation: (4) Acute and chronic respiratory failure with hypercapnia: (5) EITAN (acute kidney injury): (6) Acute hyperkalemia: (7) CKD (chronic kidney disease), stage III: QUALIFIERS: Chronic kidney disease stage 3 subtype: unspecified whether 3a or 3b Qualified Code(s): N18.30 - Chronic kidney disease, stage 3 unspecified PLAN: Plan 58-year-old gentleman was admitted for shortness of breath, hypoxia pulse ox 85% on 5 L of oxygen from detention. He also had fatigue congestion and cough leading to worsening of shortness of breath. Usually wears 3 L of oxygen on baseline. 1. Bilateral COVID-19 pneumonia with suspected bacterial superinfection and s uperimposed pulmonary venous congestion and bilateral Lower Extremity Cellulitis - Admit to ICU under contact and droplet precautions. On IV Azactam. Has extensive allergy list with penicillin, Bactrim,, doxycycline and multiple other medications. Urinary antigens are negative. COVID-19 PCR positive. Patient had MSSA pneumonia in February 2024 2. AE COPD with Gelgm-do-Uqlmjto Hypoxic and Hypercapnic Respiratory Failure with ABG revealing severe respiratory acidosis with initial ABG revealing pH 7.26/ pCO2 80.4 mmHg/ pO2 72 mmHg/ bicarbonate 35.9 mmol/L on 10L NC requiring BiPAP. Field Service Coordinator was consulted. Patient on a scheduled bronchodilator. On Decadron and remdesivir. 3. EITAN; in the setting of CKD; stage III with elevated serum creatinine of 2.2 mg/dL and BUN of 81 mg/dL (up from his baseline of 1.75 mg/dL last admission) complicating #1 & #2 - Gently volume resuscitate in patient with a known history of chronic diastolic CHF; with preserved LVEF. Follow strict I's & O's to prevent potential volume overload. 4. Hyperkalemia of 5.9 mmol/L present on admission likely due to a combination of severe respiratory acidosis and EITAN compounding #1 - #3 - Patient was emergently treated with IV insulin, IV D50, oral Kayexalate and IV calcium gluconate in ER. We will recheck level in AM to confirm improvement. 5. Essential Hypertension; on carvedilol, losartan and bumetanide with suspected Adverse Drug Reaction to diuretic and ARB contributing to #3 & #4 - Hold losartan and bumetanide but continue carvedilol to prevent severe rebound tachycardia with patient likely to receive very frequent nebulizers. 6. Morbid Obesity; with BMI of 63.7 this admission in the setting of known MARYLU; noncompliant with CPAP adding to the medical complexity of #1 - #5 - Weight loss will be recommended. Check TSH. This complicates his case and may hamper recovery. 7. Recent admission here from March 10, 2024 to March 19, 2024 for treatment of AE COPD due to a combination of parainfluenza infection and MSSA pneumonia complicated by clinical evidence of acute on chronic hypoxic and hypercapnic respiratory failure compounded by EITAN in the setting of CKD; stage III 8. Chronic diastolic CHF; with preserved LVEF and mildly elevated BNP of 136 pg/mL present on admission mitigating against significant acute CHF - Noted. We we will closely monitor I's and O's to avoid volume overload. 9. DM-2; of unknown control on liraglutide, insulin glargine 30U sq BID plus insulin lispro 10U sq TID and SSI - ADA diet to be started if patient improves on BiPAP. Continue insulin glargine and insulin lispro as previous but hold liraglutide while inpatient. 10. Hyperlipidemia; with intolerance to statins - Check Lipid Profile this admission. 11. History asthma/COPD; without previous tobacco abuse with subsequent chronic hypoxic respiratory failure on 3L NC continuous - Noted. 12. Chronic LE Lymphedema - Stable. 13. PVD; with history of non-pressure ulcers of both LE's - Stable. 14. Chronic normocytic anemia - Slightly worse with hemoglobin of 9.7 g/dL (down from his previous baseline of 11.8 g/dL last admission) and with a BUN/creatinine ratio of ~40:1 worrisome for possible bleeding. Hemoccult stools. Check iron studies and ferritin. 15. GERD; on omeprazole - Maintain on PPI. 16. OA - Give acetaminophen prn. 17. DVT prophylaxis - Heparin 5,000U sq TID plus SCD's. We will hold chemoprophylaxis if patient develops signs of bleeding. Charges/Coding Visit Charges Inpatient E&M: 10926 Subs Hosp L3
[2024-04-24] MEDS: Insulin Glargine-YFGN 100 UNIT/ML Pen 30 UNIT SC ×2 (13:40→21:06)
--- NOTE | 2024-04-24 14:38 | NURSING ---
Most of morning patient had increased agitation. Once patient's brother arrived, both patient and brother were both very accusatory towards this RN. Stating we are scamming him and fucking him over. When asked what the problem was and why they felt this way, patient stated that we are not telling him anything and that it is impossible to get COVID in a custodial. Patient and family educated on possiblity of getting COVID in a nursing facility. Patient and brother than stated that they were not being told or educated on anything, even though this RN had educated patient several times on POC and different medications. Once questioned about this patient did admit that he remembered being educated but was still upset. This RN spent significant amount of time with patient and brother educating on POC and medications, in which they seemed content with answers. Will continue to monitor patient and education needs.
[2024-04-24 17:09] LABS: Bedside Glucose 314 mg/dL (74-106)
[2024-04-24] MEDS: Ascorbic Acid 500 MG Tablet 1000 MG PO (17:50)
[2024-04-24] MEDS: Carvedilol 25 MG Tablet PO (17:52)
[2024-04-24 18:25] LABS: Bedside Glucose 404 mg/dL (74-106)
[2024-04-24] MEDS: Vancomycin HCl 1,250 MG in 0.9% Normal Saline (250mL Bag) 250 ML 167 MG IV (20:20)
[2024-04-24 21:26] LABS: Bedside Glucose 426 mg/dL (74-106)
[2024-04-25] VITALS (19 sets, daily range): BP systolic 112–178; BP diastolic 51–78; PULSE 76–86; RESP 14–28; TEMP 36.6–37.3; O2SAT 92–98; BMI 62.8
[2024-04-25 01:48] LABS: Hematocrit 29.4 % (40-54); Hemoglobin 9.1 g/dL (13.0-16.5); Mean Corpuscular Hgb 27.3 pg (27.0-32.0); Mean Corpuscular Volume 88.3 fL (80-94); Mean Platelet Vol. 9.2 fl (6.2-12.0); Platelet Count 220 K/mm3 (150-450); RBC Distribution Width CV 16.1 % (11.6-14.6); RBC Distribution Width SD 51.1 fl (35.1-43.9); Red Blood Count 3.33 M/mm3 (4.6-6.2); White Blood Count 7.1 K/mm3 (4.4-11.0)
[2024-04-25 02:23] LABS: ALB/GLOB Ratio 0.4 RATIO (0.9-2.4); AST(SGOT) 21 U/L (15-37); Alanine Aminotransfer ALT/SGPT 16 U/L (16-61); Alkaline Phosphatase 140 U/L (45-117); Anion Gap 2 (5-15); BUN 64 mg/dL (7-18); Calcium,Total 8.7 mg/dL (8.5-10.1); Chloride 102 mmol/L (98-107); Creatinine, Serum 1.56 mg/dL (0.70-1.30); EST Glomerular Filtration Rate 49 mL/min (>60); Est Glom Filt Rate - Afr Amer 59 mL/min (>60); Estimated Creatinine Clearance 71.35 ml/min; Globulin 4.6 g/dL (2.2-4.2); Glucose 445 mg/dL (74-106); Potassium 6.1 mmol/L (3.5-5.1); Protein, Total 6.6 g/dL (6.4-8.2); Sodium Level 134 mmol/L (136-145)
[2024-04-25] MEDS: Insulin Lispro 100 UNIT/ML VIAL (ADMELOG) 10 UNIT IV (03:03)
[2024-04-25] MEDS: Sodium Polystyrene Sulfonate 15 GM/60 ML UDC PO (03:03)
[2024-04-25] MEDS: Dextrose 10%-Water 250 ML 999 ML IV (03:03)
[2024-04-25] MEDS: Furosemide 100 MG/10 ML Vial 60 MG IV (03:04)
[2024-04-25] MEDS: Albuterol 2.5 MG/3 ML VIAL.NEB. INHALATION (03:39)
[2024-04-25 06:32] LABS: Bedside Glucose 368 mg/dL (74-106)
[2024-04-25] MEDS: Heparin Injection (Vial) 5,000 UNIT/ML VIAL 5000 UNIT SC ×3 (06:51→21:22)
[2024-04-25] MEDS: Meropenem 1 GM in 0.9% Normal Saline (100mL MB+) 100 ML IV ×3 (06:51→21:23)
[2024-04-25] MEDS: Insulin Lispro 100 UNIT/ML INSULN.PEN SC ×4 (06:53→21:27)
[2024-04-25] MEDS: Ipratropium/Albuterol Sulfate 3 ML AMPUL.NEB INHALATION ×4 (07:30→19:45)
--- NOTE | 2024-04-25 08:05 | PCM.PN.INT ---
Assessment & Plan Assessment/Plan (1) COVID-19: PLAN: Plan RECOMMENDATIONS: 1. Continue PAP therapy with naps and nightly. 2. Supplemental oxygen to maintain saturations 88 to 92%. 3. Continue empiric antimicrobials. 4. Continue remdesivir and Decadron. 5. Continue scheduled bronchodilators. 6. Continue appropriate DVT prophylaxis. 7. The patient is medically stable for transfer out of the intensive care unit. 8. Will sign off from a critical care perspective. Please call with any additional questions. IMPRESSIONS: 1. Acute on chronic combined respiratory failure The patient has a known history of COPD and obstructive sleep apnea, for which he is noncompliant with nocturnal PAP therapy. He has been lost to outpatient pulmonary follow-up since 2020. His current clinical state is likely the consequence of underlying obstructive lung disease in a state of exacerbation due to COVID-19 pneumonia. In addition to his sleep apnea, the patient likely has a component of alveolar hypoventilation secondary to super morbid obesity with susceptibility to CO2 narcosis due to nonuse of PAP therapy. The patient has improved clinically with the use of noninvasive positive pressure ventilatory support along with bronchodilators, steroids, antimicrobials and remdesivir. Plan to continue the aforementioned interventions, without change. 2. Acute on chronic kidney disease Improved. Most likely prerenal in etiology. Continue to monitor urine output for now. No current indication for renal replacement therapy. 3. Metabolic encephalopathy Most likely secondary to presenting hypercapnia, which has responded appropriately to noninvasive positive pressure ventilatory support. Continue current supportive measures. 4. History of hypertension/hyperlipidemia/diabetes mellitus/GERD/super morbid obesity Complicates care, management, recovery and prognosis. Continue home medications as indicated. Continue basal and sliding scale insulin coverage. Physical therapy will need to work with the patient. This note was generated with [email or web address] dictation software. It may contain incorrect words, spelling, and punctuation that were not noted in checking the note before signing. Subjective Subjective The patient was seen and examined at the bedside this morning. Events from the last 24 hours have been reviewed. The patient is currently afebrile, hemodynamically stable and maintaining appropriate oxygen saturations on 5 L/min via nasal cannula. The patient refused PAP therapy last night. White blood cell count is normal. Hemoglobin and platelet count are stable. Creatinine has improved to 1.56. Glucose is elevated at 445. Objective Data Objective Data The patient's most recent lab work, culture data and imaging studies have all been personally reviewed. Surface echocardiogram from November 2023 demonstrated normal LV size and function with an ejection fraction of 60%. COVID PCR was positive on April 23. Vital Signs: Vital Signs Temp Pulse Resp BP Pulse Ox O2 Del Method O2 Flow Rate 98.4 F 80 20 H 126/64 H 96 Nasal Cannula 7 04/25/24 01:00 04/25/24 07:31 04/25/24 07:31 04/25/24 07:00 04/25/24 07:31 04/25/24 07:31 04/25/24 07:31 FiO2 40 04/24/24 11:59 Oxygen Flow Rate (L/min) 7 Oxygen Delivery Method Nasal Cannula Weight: 354 lb 11.58 oz Body Mass Index (BMI) 62.8 Intake & Output: Intake and Output for Last 24 Hours 04/23/24 04/24/24 04/25/24 23:59 23:59 23:59 Intake Total 2126.25 / 2126.25 870 / 870 Output Total 4400 / 4400 550 / 550 Balance -2273.75 / -2273.75 320 / 320 Lab / Micro Data Attestation: I reviewed the patient's lab results. 04/25/24 01:40 04/25/24 01:40 Labs: Laboratory Results - last 24 hr 04/24/24 04:17: Hemoglobin A1c 8.5 H, Alkaline Phosphatase 157 H 04/24/24 08:03: POC Glucose 253 H 04/24/24 13:32: POC Glucose 314 H 04/24/24 16:33: POC Glucose 404 H 04/24/24 21:03: POC Glucose 426 H 04/25/24 01:40: WBC 7.1, RBC 3.33 L, Hgb 9.1 L, Hct 29.4 L, MCV 88.3, MCH 27.3, MCHC 31.0 L, RDW Std Deviation 51.1 H, RDW Coeff of Jung 16.1 H, Plt Count 220, MPV 9.2, Sodium 134 L, Potassium 6.1 H*, Chloride 102, Carbon Dioxide 30.0, Anion Gap 2 L, BUN 64 H, Creatinine 1.56 H, Estim Creat Clear Calc 71.35, Est GFR (MDRD) Af Amer 59 L, Est GFR (MDRD) Non-Af 49 L, BUN/Creatinine Ratio 41.0 H, Glucose 445 H, Calcium 8.7, Total Bilirubin 0.30, AST 21, ALT 16, Alkaline Phosphatase 140 H, Total Protein 6.6, Albumin 2.0 L, Globulin 4.6 H, Albumin/Globulin Ratio 0.4 L 04/25/24 06:02: POC Glucose 368 H Micro: Microbiology 04/24/24 04:17 Urine, Random Legionella Antigen - Final 04/24/24 04:17 Urine, Random Streptococcus pneumoniae Antigen (M - Final 04/23/24 23:24 Mucosa - Nose SARS-CoV-2, Influenza & RSV (PCR) - Final SARS-CoV-2 (COVID 19 PCR) Physical Exam Const alert, oriented x3 and no apparent distress General Appearance: cooperative HEENT normocephalic and head/scalp atraumatic Eyes PERRL, EOMs intact bilaterally and conjunctivae normal Neck supple Neck Narrative: Large neck circumference with redundant soft tissue. General: trachea midline Chest inspection of chest normal Resp normal respiratory effort Auscultation: diminished lung sounds Cardio regular rate and regular rhythm GI normal to inspection, nondistended, normoactive bowel sounds Extremity General Extremity: edema; Negative for clubbing Skin General Skin Exam: venous stasis and dermatitis Neuro CN's II-XII intact bilaterally, moves all extremities and no focal motor deficits Psych cooperative and affect normal Charges/Coding Visit Charges Inpatient E&M: 31712 Subs Hosp L3
[2024-04-25] MEDS: Ascorbic Acid 500 MG Tablet 1000 MG PO (09:35)
[2024-04-25] MEDS: Isosorbide Mononitrate 60 MG Tablet PO (09:37)
[2024-04-25] MEDS: Zinc Sulfate 50 mg zinc (220 mg) ORAL capsule PO (09:38)
[2024-04-25] MEDS: Carvedilol 25 MG Tablet PO ×2 (09:38→16:23)
[2024-04-25] MEDS: dexAMETHasone 10 MG/ML Vial 6 MG IV ×2 (09:38→21:22)
[2024-04-25] MEDS: Pantoprazole Sodium 20 MG Tablet PO (09:38)
[2024-04-25] MEDS: Vancomycin HCl 1,250 MG in 0.9% Normal Saline (250mL Bag) 250 ML 167 MG IV (09:39)
[2024-04-25] MEDS: Cholecalciferol (Vit D3) 125 MCG CAPSULE (5,000 UNITS) PO (09:42)
[2024-04-25] MEDS: Insulin Lispro 100 UNIT/ML INSULN.PEN 10 UNIT SC ×3 (09:55→16:23)
[2024-04-25] MEDS: Insulin Glargine-YFGN 100 UNIT/ML Pen 30 UNIT SC ×2 (09:55→21:27)
[2024-04-25] MEDS: Remdesivir 100 MG in 0.9% Normal Saline (250mL Bag) 230 ML 250 MG IV (10:24)
[2024-04-25 10:33] LABS: Bedside Glucose 303 mg/dL (74-106)
--- NOTE | 2024-04-25 11:04 | CASEMGMT ---
Social Work SW spoke with pt who confirms he plans to return to the [facility] at time of discharge. [facility] is able to accept pt back and no precert is needed to return. Plan: Return to [facility], when medically ready ERNIE Carreon
--- NOTE | 2024-04-25 11:24 | PN.RENAL_ITS ---
Subjective Subjective Events noted Objective Data Objective Data Vital Signs: Vital Signs Temp Pulse Resp BP Pulse Ox O2 Del Method O2 Flow Rate 98.2 F 79 16 178/75 H 94 Nasal Cannula 5 04/25/24 09:33 04/25/24 09:33 04/25/24 09:33 04/25/24 09:33 04/25/24 10:18 04/25/24 10:18 04/25/24 10:18 FiO2 40 04/24/24 11:59 Oxygen Flow Rate (L/min) 5 Oxygen Delivery Method Nasal Cannula Weight: 160.9 kg Body Mass Index (BMI) 62.8 Intake & Output: Intake and Output for Last 24 Hours 04/23/24 04/24/24 04/25/24 23:59 23:59 23:59 Intake Total 2126.25 / 2126.25 870 / 870 Output Total 4400 / 4400 1550 / 1550 Balance -2273.75 / -2273.75 -680 / -680 Lab / Micro Data 04/25/24 01:40 04/25/24 01:40 Labs: Laboratory Results - last 24 hr 04/24/24 08:03: POC Glucose 253 H 04/24/24 13:32: POC Glucose 314 H 04/24/24 16:33: POC Glucose 404 H 04/24/24 21:03: POC Glucose 426 H 04/25/24 01:40: WBC 7.1, RBC 3.33 L, Hgb 9.1 L, Hct 29.4 L, MCV 88.3, MCH 27.3, MCHC 31.0 L, RDW Std Deviation 51.1 H, RDW Coeff of Jung 16.1 H, Plt Count 220, MPV 9.2, Sodium 134 L, Potassium 6.1 H*, Chloride 102, Carbon Dioxide 30.0, A nion Gap 2 L, BUN 64 H, Creatinine 1.56 H, Estim Creat Clear Calc 71.35, Est GFR (MDRD) Af Amer 59 L, Est GFR (MDRD) Non-Af 49 L, BUN/Creatinine Ratio 41.0 H, G lucose 445 H, Calcium 8.7, Total Bilirubin 0.30, AST 21, ALT 16, Alkaline Phosphatase 140 H, Total Protein 6.6, Albumin 2.0 L, Globulin 4.6 H, A lbumin/Globulin Ratio 0.4 L 04/25/24 06:02: POC Glucose 368 H 04/25/24 09:51: POC Glucose 303 H Micro: Microbiology 04/24/24 04:17 Urine, Random Legionella Antigen - Final 04/24/24 04:17 Urine, Random Streptococcus pneumoniae Antigen (M - Final 04/23/24 23:24 Mucosa - Nose SARS-CoV-2, Influenza & RSV (PCR) - Final SARS-CoV-2 (COVID 19 PCR) Physical Exam Narrative Alert awake oriented x 3 no obvious distress no pallor no icterus no JVD s1s2 no murmurs lungs clear abdomen soft no organomegaly no edema no cyanosis rivera + Assessment & Plan Assessment/Plan (1) EITAN (acute kidney injury): PLAN: Appears to have CKD stage IIIa. As of November 2023, his creatinine was around 1.4-1.5. He did have an episode of acute renal failure when he was admitted in February. Discharge creatinine was around 1.9. Nonoliguric. Renal ultrasound last admission without any hydronephrosis. No further EITAN workup needed at this point. EITAN is likely related to ongoing events. Creatinine is now back to Hyperkalemia. This morning had a potassium of 6.1 however corresponding glucose was 440. Discussed with ICU staff. Has scheduled insulin and scale insulin ordered. Received insulin this morning after those labs. Repeat BMP. Serum bicarbonate has been okay
[2024-04-25 13:23] LABS: Bedside Glucose 369 mg/dL (74-106)
[2024-04-25 15:16] LABS: Anion Gap 7 (5-15); BUN 57 mg/dL (7-18); BUN/Creat Ratio 35.8 RATIO (10-20); Calcium,Total 8.6 mg/dL (8.5-10.1); Chloride 98 mmol/L (98-107); Creatinine, Serum 1.59 mg/dL (0.70-1.30); EST Glomerular Filtration Rate 48 mL/min (>60); Est Glom Filt Rate - Afr Amer 58 mL/min (>60); Estimated Creatinine Clearance 69.69 ml/min; Glucose 398 mg/dL (74-106); Potassium 5.3 mmol/L (3.5-5.1); Sodium Level 136 mmol/L (136-145)
--- NOTE | 2024-04-25 15:19 | PN.HOSP_ITS ---
Reason for Visit Reason for Visit: Diagnoses Morbid (severe) obesity due to excess calories (04/24/24) Hyperkalemia (04/24/24) Pneumonia due to coronavirus disease 2019 (04/24/24) Chronic obstructive pulmonary disease with (acute) exacerbation (04/24/24) Acute and chronic respiratory failure with hypercapnia (04/24/24) Cellulitis of unspecified part of limb (04/24/24) Cellulitis, unspecified (04/24/24) Acute kidney failure, unspecified (04/24/24) Chronic kidney disease, stage 3 unspecified (04/24/24) Adverse effect of unspecified drugs, medicaments and biological substances, initial encounter (04/24/24) COVID-19 (04/24/24) Body mass index [BMI] 60.0-69.9, adult (04/24/24) Objective Data Objective Data Vital Signs: Vital Signs Temp Pulse Resp BP Pulse Ox O2 Del Method O2 Flow Rate 98.2 F 77 20 H 178/75 H 97 Nasal Cannula 5 04/25/24 09:33 04/25/24 11:56 04/25/24 11:56 04/25/24 09:33 04/25/24 11:56 04/25/24 11:56 04/25/24 13:17 FiO2 40 04/24/24 11:59 Oxygen Flow Rate (L/min) 5 Oxygen Delivery Method Nasal Cannula Weight: 354 lb 11.58 oz Body Mass Index (BMI) 62.8 Intake & Output: Intake and Output for Last 24 Hours 04/23/24 04/24/24 04/25/24 23:59 23:59 23:59 Intake Total 2126.25 / 2126.25 1515 / 1515 Output Total 4400 / 4400 1550 / 1550 Balance -2273.75 / -2273.75 -35 / -35 Lab / Micro Data 04/25/24 01:40 04/25/24 14:37 Labs: Laboratory Results - last 24 hr 04/24/24 13:32: POC Glucose 314 H 04/24/24 16:33: POC Glucose 404 H 04/24/24 21:03: POC Glucose 426 H 04/25/24 01:40: WBC 7.1, RBC 3.33 L, Hgb 9.1 L, Hct 29.4 L, MCV 88.3, MCH 27.3, MCHC 31.0 L, RDW Std Deviation 51.1 H, RDW Coeff of Jung 16.1 H, Plt Count 220, MPV 9.2, Sodium 134 L, Potassium 6.1 H*, Chloride 102, Carbon Dioxide 30.0, A nion Gap 2 L, BUN 64 H, Creatinine 1.56 H, Estim Creat Clear Calc 71.35, Est GFR (MDRD) Af Amer 59 L, Est GFR (MDRD) Non-Af 49 L, BUN/Creatinine Ratio 41.0 H, G lucose 445 H, Calcium 8.7, Total Bilirubin 0.30, AST 21, ALT 16, Alkaline Phosphatase 140 H, Total Protein 6.6, Albumin 2.0 L, Globulin 4.6 H, A lbumin/Globulin Ratio 0.4 L 04/25/24 06:02: POC Glucose 368 H 04/25/24 09:51: POC Glucose 303 H 04/25/24 12:28: POC Glucose 369 H 04/25/24 14:37: Sodium 136, Potassium 5.3 H, Chloride 98, Carbon Dioxide 31.0, Anion Gap 7, BUN 57 H, Creatinine 1.59 H, Estim Creat Clear Calc 69.69, Est GFR (MDRD) Af Amer 58 L, Est GFR (MDRD) Non-Af 48 L, BUN/Creatinine Ratio 35.8 H, G lucose 398 H, Calcium 8.6 Micro: Microbiology 04/24/24 04:17 Urine, Random Legionella Antigen - Final 04/24/24 04:17 Urine, Random Streptococcus pneumoniae Antigen (M - Final 04/23/24 23:24 Mucosa - Nose SARS-CoV-2, Influenza & RSV (PCR) - Final SARS-CoV-2 (COVID 19 PCR) Physical Exam Narrative Patient respiratory status is improved. Does not want scheduled bronchodilator therefore changed to as needed. Patient was educated about his diagnosis and medications and treatment. Does not want to sit/lean forward to examine the back for lungs auscultation. Physical exam General: Awake, alert oriented x 3 BMI 63.3 kg/m?, morbid obesity HEENT: Atraumatic, PERRLA, EOMI, Normocephalic Oral: On BiPAP/NIPPV Neck: Short and wide, supple, JVP could not be easily visualized Chest wall/Lungs: Air entry diminished in bilateral lung bases. No crepitation/rhonchi Cardiovascular: Sinus rhythm, Normal S1, Normal S2, No M/G/R Abdomen: Bowel Sounds Present, Soft, Non Tender, Non-Distended : No dysuria. No renal angle tenderness. No suprapubic tenderness. Extremities: Bilateral edema. Chronic lymphedema with hypertrophy of soft tissue Skin: No rashes, No breakdown Musculoskeletal: No Tenderness to Palpation of Joints or Extremities. ROM decreased Neurological: Diminished responsiveness, hard to follow command patient on BiPAP. Detailed neuroexam unobtainable Psych/Mental Status: Flat affect Assessment & Plan Assessment/Plan (1) Cellulitis: QUALIFIERS: Site of cellulitis: extremity Site of cellulitis of extremity: lower extremity Laterality: unspecified laterality Qualified Code(s): L03.119 - Cellulitis of unspecified part of limb (2) Pneumonia due to 2019 novel coronavirus: (3) COPD exacerbation: (4) Acute and chronic respiratory failure with hypercapnia: (5) EITAN (acute kidney injury): (6) Acute hyperkalemia: (7) CKD (chronic kidney disease), stage III: QUALIFIERS: Chronic kidney disease stage 3 subtype: unspecified whether 3a or 3b Qualified Code(s): N18.30 - Chronic kidney disease, stage 3 unspecified PLAN: Plan 58-year-old gentleman was admitted for shortness of breath, hypoxia pulse ox 85% on 5 L of oxygen from [facility]. He also had fatigue congestion and cough leading to worsening of shortness of breath. Usually wears 3 L of oxygen on baseline. 1. Bilateral COVID-19 pneumonia with suspected bacterial superinfection and s uperimposed pulmonary venous congestion and bilateral Lower Extremity Cellulitis - Admit to ICU under contact and droplet precautions. On IV Azactam. Has extensive allergy list with penicillin, Bactrim,, doxycycline and multiple other medications. Urinary antigens are negative. COVID-19 PCR positive. Patient had MSSA pneumonia in February 202404/25: Overall respiratory status has improved. Customer Assistance Representative signed off. 2. AE COPD with [id number] Hypoxic and Hypercapnic Respiratory Failure with ABG revealing severe respiratory acidosis with initial ABG revealing pH 7.26/ pCO2 80.4 mmHg/ pO2 72 mmHg/ bicarbonate 35.9 mmol/L on 10L NC requiring BiPAP. Customer Assistance Representative was consulted. Patient on a scheduled bronchodilator. On Decadron and remdesivir. 04/25: Patient on 4 to 5 L of oxygen, pulse ox 94 to 97%. No tachypnea. Blood pressure elevated. 3. EITAN; in the setting of CKD; stage IIIa with elevated serum creatinine of 2.2 mg/dL and BUN of 81 mg/dL (up from his baseline of 1.4-1.5 in November 2023. Gently volume resuscitate in patient with a known history of chronic diastolic CHF; with preserved LVEF. Follow strict I's & O's to prevent potential volume overload. 04/25: Creatinine 1.59. Hypokalemia, K5.3 better than yesterday. 4. Hyperkalemia of 5.9 mmol/L present on admission likely due to a combination of severe respiratory acidosis and EITAN compounding #1 - #3 - Patient was emergently treated with IV insulin, IV D50, oral Kayexalate and IV calcium gluconate in ER. We will recheck level in AM to confirm improvement. 5. Essential Hypertension; on carvedilol, losartan and bumetanide with suspected Adverse Drug Reaction to diuretic and ARB contributing to #3 & #4 - Hold losartan and bumetanide but continue carvedilol to prevent severe rebound tachycardia with patient likely to receive very frequent nebulizers. 04/25: Patient on Imdur 60 mg daily, carvedilol. On IV labetalol as needed. 6. Morbid Obesity; with BMI of 63.7 this admission in the setting of known MARYLU; noncompliant with CPAP adding to the medical complexity of #1 - #5 - Weight loss will be recommended. Check TSH. This complicates his case and may hamper recovery. 7. Recent admission here from March 10, 2024 to March 19, 2024 for treatment of AE COPD due to a combination of parainfluenza infection and MSSA pneumonia complicated by clinical evidence of acute on chronic hypoxic and hypercapnic respiratory failure compounded by EITAN in the setting of CKD; stage III 8. Chronic diastolic CHF; with preserved LVEF and mildly elevated BNP of 136 pg/mL present on admission mitigating against significant acute CHF -fluid status is good. 9. DM-2; of unknown control on liraglutide, insulin glargine 30U sq BID plus insulin lispro 10U sq TID and SSI - ADA diet to be started if patient improves on BiPAP. Continue insulin glargine and insulin lispro as previous but hold liraglutide while inpatient. 10. Hyperlipidemia; with intolerance to statins - Check Lipid Profile this admission. 11. History asthma/COPD; without previous tobacco abuse with subsequent chronic hypoxic respiratory failure on 3L NC continuous - Noted. 12. Chronic LE Lymphedema - Stable. 13. PVD; with history of non-pressure ulcers of both LE's - Stable. 14. Chronic normocytic anemia - Slightly worse with hemoglobin of 9.7 g/dL (down from his previous baseline of 11.8 g/dL last admission) and with a BUN/creatinine ratio of ~40:1 worrisome for possible bleeding. Hemoccult stools. Check iron studies and ferritin. 15. GERD; on omeprazole - Maintain on PPI. 16. OA - Give acetaminophen prn. 17. DVT prophylaxis - Heparin 5,000U sq TID plus SCD's. We will hold chemoprophylaxis if patient develops signs of bleeding. Charges/Coding Visit Charges Inpatient E&M: 29575 Subs Hosp L3
[2024-04-25 16:36] LABS: Bedside Glucose 316 mg/dL (74-106)
[2024-04-25 21:47] LABS: Vancomycin, Trough Level 21.4 ug/mL (5.0-15.0)
[2024-04-25 21:48] LABS: Bedside Glucose 335 mg/dL (74-106)
--- NOTE | 2024-04-25 22:19 | PCM.RX.CS ---
Consult Antibiotic Management Pharmacy has been consulted to manage selected antibiotic: Vancomycin Type of Intervention Type of Consult: Follow-up Labs Labs: Sodium 136 mmol/L (136-145) 04/25/24 14:37 Potassium 5.3 mmol/L (3.5-5.1) H 04/25/24 14:37 Chloride 98 mmol/L (98-107) 04/25/24 14:37 Carbon Dioxide 31.0 mmol/L (21.0-32.0) 04/25/24 14:37 Anion Gap 7 (5-15) 04/25/24 14:37 BUN 57 mg/dL (7-18) H 04/25/24 14:37 Creatinine 1.59 mg/dL (0.70-1.30) H 04/25/24 14:37 Est GFR (MDRD) Af Amer 58 mL/min (>60) L 04/25/24 14:37 Est GFR (MDRD) Non-Af 48 mL/min (>60) L 04/25/24 14:37 BUN/Creatinine Ratio 35.8 RATIO (10-20) H 04/25/24 14:37 Glucose 398 mg/dL (74-106) H 04/25/24 14:37 Vancomycin Trough 21.4 ug/mL (5.0-15.0) H 04/25/24 21:02 Microbiology Microbiology: Microbiology 04/24/24 04:17 Urine, Random Legionella Antigen - Final 04/24/24 04:17 Urine, Random Streptococcus pneumoniae Antigen (M - Final 04/23/24 23:24 Mucosa - Nose SARS-CoV-2, Influenza & RSV (PCR) - Final SARS-CoV-2 (COVID 19 PCR) Dosing Weight Weight used for dosin kg Estimated Creatinine Clearance Estimated Creatinine Clearance: 70 Goal Trough Goal Trough: 15-20 mcg/mL Pharmacy Plan for Drug Dosing Pharmacy Plan for Drug Dosing: Vancomycin trough level of 21.4, drawn 11.5hrs post-dose, was above the target range of 15-20. Will suspend current dosing, and draw a random vanco level in 12 hours to determine further dosing. Pharmacy Service will continue to monitor and adjust dosing as required. Follow-Up Labs Follow-Up Labs: Trough: Vancomycin (random) Date/Time Labs Ordered Labs to be done on [date and time ordered]: 04/26/24 @0900 (random)
[2024-04-26] VITALS (12 sets, daily range): BP systolic 109–150; BP diastolic 45–72; PULSE 67–80; RESP 17–24; TEMP 36.1–36.9; O2SAT 93–100; BMI 63.9
--- NOTE | 2024-04-26 00:01 | CPS ---
Attempted PAP therapy, however patient didn't tolerate. RT tried a nasal mask with patient as well as decreasing the pressure for comfort, patient still did not tolerate.
[2024-04-26] MEDS: Heparin Injection (Vial) 5,000 UNIT/ML VIAL 5000 UNIT SC ×3 (05:05→21:17)
[2024-04-26] MEDS: Meropenem 1 GM in 0.9% Normal Saline (100mL MB+) 100 ML IV (05:05)
[2024-04-26] MEDS: Ipratropium/Albuterol Sulfate 3 ML AMPUL.NEB INHALATION ×4 (05:28→20:22)
--- NOTE | 2024-04-26 08:42 | PCM.PN.HOSP ---
Reason for Visit Reason for Visit: Diagnoses Morbid (severe) obesity due to excess calories (04/24/24) Hyperkalemia (04/24/24) Pneumonia due to coronavirus disease 2019 (04/24/24) Chronic obstructive pulmonary disease with (acute) exacerbation (04/24/24) Acute and chronic respiratory failure with hypercapnia (04/24/24) Cellulitis of unspecified part of limb (04/24/24) Cellulitis, unspecified (04/24/24) Acute kidney failure, unspecified (04/24/24) Chronic kidney disease, stage 3 unspecified (04/24/24) Adverse effect of unspecified drugs, medicaments and biological substances, initial encounter (04/24/24) COVID-19 (04/24/24) Body mass index [BMI] 60.0-69.9, adult (04/24/24) Objective Data Objective Data Vital Signs: Vital Signs Temp Pulse Resp BP Pulse Ox O2 Del Method O2 Flow Rate 98.5 F 69 22 H 109/53 L 100 Nasal Cannula 3 04/26/24 04:36 04/26/24 05:30 04/26/24 05:30 04/26/24 04:36 04/26/24 05:31 04/26/24 05:31 04/26/24 05:31 FiO2 40 04/24/24 11:59 Oxygen Flow Rate (L/min) 3 Oxygen Delivery Method Nasal Cannula Weight: 361 lb Body Mass Index (BMI) 63.9 Intake & Output: Intake and Output for Last 24 Hours 04/24/24 04/25/24 04/26/24 23:59 23:59 23:59 Intake Total 2126.25 / 2126.25 1635 / 1885 620 / 620 Output Total 4400 / 4400 2150 / 3000 1200 / 1200 Balance -2273.75 / -2273.75 -515 / -1115 -580 / -580 Lab / Micro Data 04/26/24 08:42 04/26/24 08:42 Labs: Laboratory Results - last 24 hr 04/25/24 09:51: POC Glucose 303 H 04/25/24 12:28: POC Glucose 369 H 04/25/24 14:37: Sodium 136, Potassium 5.3 H, Chloride 98, Carbon Dioxide 31.0, Anion Gap 7, BUN 57 H, Creatinine 1.59 H, Estim Creat Clear Calc 69.69, Est GFR (MDRD) Af Amer 58 L, Est GFR (MDRD) Non-Af 48 L, BUN/Creatinine Ratio 35.8 H, Glucose 398 H, Calcium 8.6 04/25/24 16:14: POC Glucose 316 H 04/25/24 21:02: Vancomycin Trough 21.4 H 04/25/24 21:26: POC Glucose 335 H Micro: Microbiology 04/24/24 04:17 Urine, Random Legionella Antigen - Final 04/24/24 04:17 Urine, Random Streptococcus pneumoniae Antigen (M - Final 04/23/24 23:24 Mucosa - Nose SARS-CoV-2, Influenza & RSV (PCR) - Final SARS-CoV-2 (COVID 19 PCR) Physical Exam Narrative Seen and examined Patient respiratory status is improved. Patient is stated, nasal BiPAP/Airvo could not Cebul his nose. Currently on 3 L of oxygen. Could not take good lung exam as he does not sit forward states, is trapped. Morbid obesity, body habitus. States he has gas pain. Physical exam General: Awake, alert oriented x 3 BMI 63.3 kg/m?, morbid obesity HEENT: Atraumatic, PERRLA, EOMI, Normocephalic Oral: On BiPAP/NIPPV Neck: Short and wide, supple, JVP could not be easily visualized Chest wall/Lungs: Air entry diminished in bilateral lung bases. No crepitation/rhonchi Cardiovascular: Sinus rhythm, Normal S1, Normal S2, No M/G/R Abdomen: Bowel Sounds Present, Soft, Non Tender, Non-Distended : No dysuria. No renal angle tenderness. No suprapubic tenderness. Extremities: Bilateral edema. Chronic lymphedema with hypertrophy of soft tissue Skin: No rashes, No breakdown Musculoskeletal: No Tenderness to Palpation of Joints or Extremities. Lower extremity at hips and knees ROM decreased Neurological: No focal neurological deficit. Psych/Mental Status: Flat affect Assessment & Plan Assessment/Plan (1) Cellulitis: QUALIFIERS: Laterality: unspecified laterality Site of cellulitis: extremity Site of cellulitis of extremity: lower extremity Qualified Code(s): L03.119 - Cellulitis of unspecified part of limb (2) Pneumonia due to 2019 novel coronavirus: (3) COPD exacerbation: (4) Acute and chronic respiratory failure with hypercapnia: (5) EITAN (acute kidney injury): (6) Acute hyperkalemia: (7) CKD (chronic kidney disease), stage III: QUALIFIERS: Chronic kidney disease stage 3 subtype: unspecified whether 3a or 3b Qualified Code(s): N18.30 - Chronic kidney disease, stage 3 unspecified PLAN: Plan 58-year-old gentleman was admitted for shortness of breath, hypoxia pulse ox 85% on 5 L of oxygen from half-way. He also had fatigue congestion and cough leading to worsening of shortness of breath. Usually wears 3 L of oxygen on baseline. 1. Bilateral COVID-19 pneumonia with suspected bacterial superinfection and superimposed pulmonary venous congestion and bilateral Lower Extremity Cellulitis - Admit to ICU under contact and droplet precautions. On IV Azactam. Has extensive allergy list with penicillin, Bactrim,, doxycycline and multiple other medications. Urinary antigens are negative. COVID-19 PCR positive. Patient had MSSA pneumonia in February 202404/25: Overall respiratory status has improved. Student Success Advisor signed off. 04/26: ID consult reviewed and appreciated. Sputum culture on 03/11/2024 grew MSSA on IV vancomycin and meropenem. Low suspicion of bacterial superinfection with normal WBC count no fever no rhonchi or sputum production. Vancomycin and meropenem restarted. Continue dexamethasone and remdesivir. 2. AE COPD with [id number] Hypoxic and Hypercapnic Respiratory Failure with ABG revealing severe respiratory acidosis with initial ABG revealing pH 7.26/ pCO2 80.4 mmHg/ pO2 72 mmHg/ bicarbonate 35.9 mmol/L on 10L NC requiring BiPAP. Student Success Advisor was consulted. Patient on a scheduled bronchodilator. On Decadron and remdesivir. 04/25: Patient on 4 to 5 L of oxygen, pulse ox 94 to 97%. No tachypnea. Blood pressure elevated. 3. EITAN; in the setting of CKD; stage IIIa with elevated serum creatinine of 2.2 mg/dL and BUN of 81 mg/dL (up from his baseline of 1.4-1.5 in November 2023. Gently volume resuscitate in patient with a known history of chronic diastolic CHF; with preserved LVEF. Follow strict I's & O's to prevent potential volume overload. 04/25: Creatinine 1.59. Hypokalemia, K5.3 better than yesterday. 4. Hyperkalemia of 5.9 mmol/L present on admission likely due to a combination of severe respiratory acidosis and EITAN compounding #1 - #3 - Patient was emergently treated with IV insulin, IV D50, oral Kayexalate and IV calcium gluconate in ER. We will recheck level in AM to confirm improvement. 5. Essential Hypertension; on carvedilol, losartan and bumetanide with suspected Adverse Drug Reaction to diuretic and ARB contributing to #3 & #4 - Hold losartan and bumetanide but continue carvedilol to prevent severe rebound tachycardia with patient likely to receive very frequent nebulizers. 04/25: Patient on Imdur 60 mg daily, carvedilol. On IV labetalol as needed. 6. Morbid Obesity; with BMI of 63.7 this admission in the setting of known MARYLU; noncompliant with CPAP adding to the medical complexity of #1 - #5 - Weight loss will be recommended. Check TSH. This complicates his case and may hamper recovery. 7. Recent admission here from March 10, 2024 to March 19, 2024 for treatment of AE COPD due to a combination of parainfluenza infection and MSSA pneumonia complicated by clinical evidence of acute on chronic hypoxic and hypercapnic respiratory failure compounded by EITAN in the setting of CKD; stage III 8. Chronic diastolic CHF; with preserved LVEF and mildly elevated BNP of 136 pg/mL present on admission mitigating against significant acute CHF -fluid status is good. 9. DM-2; of unknown control on liraglutide, insulin glargine 30U sq BID plus insulin lispro 10U sq TID and SSI - ADA diet to be started if patient improves on BiPAP. Continue insulin glargine and insulin lispro as previous but hold liraglutide while inpatient. 10. Hyperlipidemia; with intolerance to statins - Check Lipid Profile this admission. 11. History asthma/COPD; without previous tobacco abuse with subsequent chronic hypoxic respiratory failure on 3L NC continuous - Noted. 12. Chronic LE Lymphedema - Stable. 13. PVD; with history of non-pressure ulcers of both LE's - Stable. 14. Chronic normocytic anemia - Slightly worse with hemoglobin of 9.7 g/dL (down from his previous baseline of 11.8 g/dL last admission) and with a BUN/creatinine ratio of ~40:1 worrisome for possible bleeding. Hemoccult stools. Check iron studies and ferritin. 15. GERD; on omeprazole - Maintain on PPI. 16. OA - Give acetaminophen prn. 17. DVT prophylaxis - Heparin 5,000U sq TID plus SCD's. We will hold chemoprophylaxis if patient develops signs of bleeding. Charges/Coding Visit Charges Inpatient E&M: 15119 Subs Hosp L3
[2024-04-26 08:51] LABS: Absolute Lymphocyte Count 1.04 X10^3/uL (0.83-4.51); Basophil# 0.03 X10^3/uL; Basophil% 0.4 % (0-1); Eosinophil# 0.01 X10^3/uL; Eosinophils% 0.1 % (0-5); Hematocrit 31.4 % (40-54); Hemoglobin 9.8 g/dL (13.0-16.5); Lymphocyte # 1.04 X10^3/ul (0.83-4.51); Mean Corp Hgb Conc 31.2 g/dL (32-36); Mean Corpuscular Hgb 27.5 pg (27.0-32.0); Mean Platelet Vol. 8.7 fl (6.2-12.0); Monocyte# 0.84 X10^3/uL; Monocyte% 10.5 % (0-10); NRBC Flagged by Analyzer 0.3 % (0-5); Neutrophil # 5.98 X10^3/uL (2.7-7.7); Neutrophil % 74.7 % (47-70); Platelet Count 225 K/mm3 (150-450); RBC Distribution Width CV 16.2 % (11.6-14.6); RBC Distribution Width SD 51.5 fl (35.1-43.9); Red Blood Count 3.57 M/mm3 (4.6-6.2)
[2024-04-26 09:13] LABS: Anion Gap 3 (5-15); BUN 43 mg/dL (7-18); BUN/Creat Ratio 36.4 RATIO (10-20); Calcium,Total 8.8 mg/dL (8.5-10.1); Chloride 99 mmol/L (98-107); Creatinine, Serum 1.18 mg/dL (0.70-1.30); EST Glomerular Filtration Rate 67 mL/min (>60); Est Glom Filt Rate - Afr Amer 81 mL/min (>60); Estimated Creatinine Clearance 94.99 ml/min; Glucose 223 mg/dL (74-106); Potassium 4.6 mmol/L (3.5-5.1); Sodium Level 135 mmol/L (136-145)
[2024-04-26 09:23] LABS: Vancomycin, Random Level 15.5 ug/mL (0.0-15.0)
--- NOTE | 2024-04-26 09:41 | PCM.RX.CS ---
Consult Antibiotic Management Pharmacy has been consulted to manage selected antibiotic: Vancomycin Type of Intervention Type of Consult: Follow-up Prior Doses of Antibiotics Prior Doses of Antibiotics Received/Current Regimen: the most recent dose was 1250mg q12h before it was held due to a slightly high trough Labs Labs: Sodium 135 mmol/L (136-145) L 04/26/24 08:42 Potassium 4.6 mmol/L (3.5-5.1) 04/26/24 08:42 Chloride 99 mmol/L (98-107) 04/26/24 08:42 Carbon Dioxide 33.0 mmol/L (21.0-32.0) H 04/26/24 08:42 Anion Gap 3 (5-15) L 04/26/24 08:42 BUN 43 mg/dL (7-18) H 04/26/24 08:42 Creatinine 1.18 mg/dL (0.70-1.30) 04/26/24 08:42 Est GFR (MDRD) Af Amer 81 mL/min (>60) 04/26/24 08:42 Est GFR (MDRD) Non-Af 67 mL/min (>60) 04/26/24 08:42 BUN/Creatinine Ratio 36.4 RATIO (10-20) H 04/26/24 08:42 Glucose 223 mg/dL (74-106) H 04/26/24 08:42 Vancomycin Trough 21.4 ug/mL (5.0-15.0) H 04/25/24 21:02 Random Vancomycin 15.5 ug/mL (0.0-15.0) H 04/26/24 08:42 Microbiology Microbiology: Microbiology 04/24/24 04:17 Urine, Random Legionella Antigen - Final 04/24/24 04:17 Urine, Random Streptococcus pneumoniae Antigen (M - Final 04/23/24 23:24 Mucosa - Nose SARS-CoV-2, Influenza & RSV (PCR) - Final SARS-CoV-2 (COVID 19 PCR) Dosing Weight Weight used for dosin kg Estimated Creatinine Clearance Estimated Creatinine Clearance: 95 ml/min Goal Trough Goal Trough: 15-20 mcg/mL Pharmacy Plan for Drug Dosing Pharmacy Plan for Drug Dosing: The vanc random level drawn at 08:42 today was 15.5. This is back below 20 so will restart dosing at a newly calculated dose of 1000mg q12h. Will check a trough before the 4th dose. Of note, the patient's SCr improved to 1.18 today from 1.59 yesterday and 1.98 two days ago. Pharmacy Service will continue to monitor and adjust dosing as required. Follow-Up Labs Follow-Up Labs: Trough: Vancomycin Date/Time Labs Ordered Labs to be done on [date and time ordered]: 04/27/24 21:30
[2024-04-26] MEDS: Insulin Lispro 100 UNIT/ML INSULN.PEN SC ×4 (09:44→21:21)
[2024-04-26] MEDS: Insulin Lispro 100 UNIT/ML INSULN.PEN 10 UNIT SC ×3 (09:45→16:54)
[2024-04-26] MEDS: Carvedilol 25 MG Tablet PO ×2 (09:45→16:55)
[2024-04-26] MEDS: Pantoprazole Sodium 20 MG Tablet PO (09:46)
[2024-04-26] MEDS: Insulin Glargine-YFGN 100 UNIT/ML Pen 30 UNIT SC ×2 (09:46→21:21)
[2024-04-26] MEDS: Remdesivir 100 MG in 0.9% Normal Saline (250mL Bag) 230 ML 250 MG IV (09:46)
[2024-04-26] MEDS: Isosorbide Mononitrate 60 MG Tablet PO (09:46)
[2024-04-26] MEDS: Cholecalciferol (Vit D3) 125 MCG CAPSULE (5,000 UNITS) PO (09:47)
[2024-04-26] MEDS: dexAMETHasone 10 MG/ML Vial 6 MG IV ×2 (09:47→21:17)
[2024-04-26] MEDS: Zinc Sulfate 50 mg zinc (220 mg) ORAL capsule PO (09:47)
[2024-04-26] MEDS: Ascorbic Acid 500 MG Tablet 1000 MG PO ×2 (09:47→16:55)
[2024-04-26 10:25] LABS: Bedside Glucose 189 mg/dL (74-106)
--- NOTE | 2024-04-26 10:49 | CASEMGMT ---
Social Work Updated clinicals sent to the [facility]. Pt can return to [facility] when medically ready. Green sheet placed on pt chart to facility weekend discharge. Plan: Return to [facility], when medically ready ERNIE Carreon
[2024-04-26] MEDS: Vancomycin IV 1,000 MG/200 ML BAG 200 MG IV (10:58)
[2024-04-26 11:59] LABS: Bedside Glucose 247 mg/dL (74-106)
--- NOTE | 2024-04-26 13:10 | PN.RENAL_ITS ---
Subjective Subjective no new events Objective Data Objective Data Vital Signs: Vital Signs Temp Pulse Resp BP Pulse Ox O2 Del Method O2 Flow Rate 97.6 F L 73 24 H 150/72 H 98 Nasal Cannula 3 04/26/24 09:59 04/26/24 11:10 04/26/24 11:10 04/26/24 09:59 04/26/24 11:10 04/26/24 11:10 04/26/24 11:10 FiO2 40 04/24/24 11:59 Oxygen Flow Rate (L/min) 3 Oxygen Delivery Method Nasal Cannula Weight: 163.747 kg Body Mass Index (BMI) 63.9 Intake & Output: Intake and Output for Last 24 Hours 04/24/24 04/25/24 04/26/24 23:59 23:59 23:59 Intake Total 2126.25 / 2126.25 1635 / 1885 1190 / 1190 Output Total 4400 / 4400 2150 / 3000 1200 / 1200 Balance -2273.75 / -2273.75 -515 / -1115 -10 / -10 Lab / Micro Data 04/26/24 08:42 04/26/24 08:42 Labs: Laboratory Results - last 24 hr 04/25/24 12:28: POC Glucose 369 H 04/25/24 14:37: Sodium 136, Potassium 5.3 H, Chloride 98, Carbon Dioxide 31.0, Anion Gap 7, BUN 57 H, Creatinine 1.59 H, Estim Creat Clear Calc 69.69, Est GFR (MDRD) Af Amer 58 L, Est GFR (MDRD) Non-Af 48 L, BUN/Creatinine Ratio 35.8 H, G lucose 398 H, Calcium 8.6 04/25/24 16:14: POC Glucose 316 H 04/25/24 21:02: Vancomycin Trough 21.4 H 04/25/24 21:26: POC Glucose 335 H 04/26/24 08:42: WBC 8.0, RBC 3.57 L, Hgb 9.8 L, Hct 31.4 L, MCV 88.0, MCH 27.5, MCHC 31.2 L, RDW Std Deviation 51.5 H, RDW Coeff of Jung 16.2 H, Plt Count 225, MPV 8.7, Immature Gran % (Auto) 1.300 H, Neut % (Auto) 74.7 H, Lymph % (Auto) 13.0 L, [place] % (Auto) 10.5 H, Eos % (Auto) 0.1, Baso % (Auto) 0.4, Absolute Neuts (auto) 6.0, Absolute Lymphs (auto) 1.04, Nucleated RBC % 0.3, Sodium 135 L , Potassium 4.6, Chloride 99, Carbon Dioxide 33.0 H, Anion Gap 3 L, BUN 43 H, Creatinine 1.18, Estim Creat Clear Calc 94.99, Est GFR (MDRD) Af Amer 81, Est GFR (MDRD) Non-Af 67, BUN/Creatinine Ratio 36.4 H, Glucose 223 H, Calcium 8.8, R andom Vancomycin 15.5 H 04/26/24 09:43: POC Glucose 189 H 04/26/24 11:37: POC Glucose 247 H Micro: Microbiology 04/24/24 04:17 Urine, Random Legionella Antigen - Final 04/24/24 04:17 Urine, Random Streptococcus pneumoniae Antigen (M - Final 04/23/24 23:24 Mucosa - Nose SARS-CoV-2, Influenza & RSV (PCR) - Final SARS-CoV-2 (COVID 19 PCR) Physical Exam Narrative Alert awake oriented x 3 no obvious distress no pallor no icterus no JVD s1s2 no murmurs lungs clear abdomen soft no organomegaly no edema no cyanosis rivera + Assessment & Plan Assessment/Plan (1) EITAN (acute kidney injury): PLAN: Appears to have CKD stage IIIa. As of November 2023, his creatinine was around 1.4-1.5. He did have an episode of acute renal failure when he was admitted in February. Discharge creatinine was around 1.9. Nonoliguric. Renal ultrasound last admission without any hydronephrosis. No further EITAN workup needed at this point. EITAN is likely related to ongoing events. Creatinine is now back to baseline Hyperkalemia. better
--- NOTE | 2024-04-26 13:25 | CON.PCM.ID_ITS ---
Assessment & Plan Assessment/Plan (1) Chronic obstructive pulmonary disease with acute respiratory distress: (2) CKD (chronic kidney disease), stage III: QUALIFIERS: Chronic kidney disease stage 3 subtype: unspecified whether 3a or 3b Qualified Code(s): N18.30 - Chronic kidney disease, stage 3 unspecified (3) COVID-19: PLAN: Low suspicion for bacterial superinfection. Normal wbc, no fever, no rhonchi, no sputum. Will stop vanc/jennifer. Cont dex/remdesivir as planned. Will follow, thank you HPI Consult Data Date of Consult: 04/26/24 HPI Narrative Reason for Consultation: covid HPI Narrative: BAILEY CARDENAS, is a 58 M with COPD, MARYLU, presented to ED 04/23/24 from [facility] with acute onset dyspnea, confusion, hypoxia. Some headache, dry cough, nausea. No sputum, no fever. Some chills. Found to be covid (+), admitted on dex, remdesivir, vanc/jennifer. Feeling better, still in icu on O2. Full ROS performed and neg except as noted above. [facility] Medical History Parainfluenza infection MSSA (methicillin susceptible Staphylococcus aureus) pneumonia Morbid obesity CKD (chronic kidney disease), stage III MARYLU (obstructive sleep apnea) HLD (hyperlipidemia) Insulin dependent diabetes mellitus Chronic respiratory failure with hypoxia and hypercapnia (HFpEF) heart failure with preserved ejection fraction Non-smoker Asthma HTN (hypertension) COPD (chronic obstructive pulmonary disease) Non-compliance Lymphedema Ulcer of left lower extremity with fat layer exposed Ulcer of right lower extremity with fat layer exposed Home Medications ?Medication ?Instructions ?Recorded ?Last Taken ?Type omeprazole magnesium 20 mg 20 mg PO DAILY stomach 10/1312/13/23 History tablet,delayed release portable nebulizer #1 ea 12/31/20 Unknown Rx ipratropium 0.5 mg-albuterol 3 mg 3 ml inhalation Q4H PRN shortness 01/06/21 12/13/23 Rx (2.5 mg base)/3 mL nebulization of breath or wheezing #180 mL soln liraglutide 0.6 mg/0.1 mL (18 mg/3 1.8 mg subcut DAILY diabetes 06/29/21 12/13/23 History mL) subcutaneous pen injector (Victoza 3-Benja) carvedilol 25 mg tablet 25 mg PO BID heart 12/14/23 12/13/23 History cetirizine 10 mg tablet (24Hour 10 mg PO DAILY PRN all ergy symptoms 12/14/23 12/14/23 History Allergy) gentamicin 0.1 % topical ointment 1 applic topical ALEJANDRINA LY PRN skin 12/14/23 12/13/23 History irritation hydrocortisone 2.5 % topical cream 1 applic topical DA YASIR PRN skin 12/14/23 12/13/23 History irritation albuterol sulfate 2.5 mg/3 mL 2.5 mg (3 mL) inhalation Q2H PRN 03/19/24 Unknown Rx (0.083 %) solution for nebulization PRN Dyspnea, wheez ing #0 mL aluminum-mag hydroxide-simethicone 30 ml PO Q6H PRN NC N Gastric 03/19/24 Unknown Rx 400 mg-400 mg-40 mg/5 mL oral susp Burning #0 mL (Mag-Al Plus Extra Strength) bumetanide 2 mg tablet 2 mg PO DAILY #0 tabs Unknown Rx guaifenesin 100 mg/5 mL oral liquid 100 mg (5 mL) G-tu be Q4H PRN PRN 03/19/24 Unknown Rx Cough #0 mL insulin glargine-yfgn 100 unit/mL 30 unit (0.3 mL) sub cut BID #0 mL 03/19/24 Unknown Rx (3 mL) subcutaneous pen insulin lispro 100 unit/mL 10 unit (0.1 mL) subcut TID CM #0 mL 03/19/24 Unknown Rx subcutaneous pen (Humalog KwikPen (U-100) Insulin) insulin lispro 100 unit/mL See Protocol subcut ACHS #0 mL 03/19/24 Unknown Rx subcutaneous pen (Humalog KwikPen (U-100) Insulin) ipratropium 0.5 mg-albuterol 3 mg 3 ml inhalation Q4HW A.RT 2 days #0 03/19/24 Unknown Rx (2.5 mg base)/3 mL nebulization mL soln isosorbide mononitrate 60 mg 60 mg PO DAILY #0 tabs Unknown Rx tablet,extended release 24 hr losartan 50 mg tablet 50 mg PO DAILY #0 tabs 03/19 Unknown Rx sennosides 8.6 mg-docusate sodium 2 tab G-tube BID PRN PRN 03/19/24 Unknown Rx 50 mg tablet (Stimulant Laxative Constipation #0 tabs Plus) Allergy/AdvReac Type Severity Reaction Status Date / Time amlodipine (From Norvasc) Allergy Other Verified 04/23/24 22:58 apraclonidine Allergy Other Verified 04/23/24 22:58 diltiazem Allergy Unknown Verified 04/23/24 22:58 doxycycline Allergy Other Verified 04/23/24 22:58 enalapril Allergy Other Verified 04/23/24 22:58 glimepiride Allergy Other Verified 04/23/24 22:58 glipizide (From Glucotrol) Allergy Other Verified 04/23/24 22:58 hydralazine Allergy Other Verified 04/23/24 22:58 ibuprofen Allergy Other Verified 04/23/24 22:58 Influenza Virus Vaccines Allergy Unknown Verified 04/23/24 22:58 latex Allergy Other Verified 04/23/24 22:58 lisinopril Allergy Other Verified 04/23/24 22:58 metoprolol Allergy Other Verified 04/23/24 22:58 montelukast Allergy Other Verified 04/23/24 22:58 Penicillins Allergy Other Verified 04/23/24 22:58 pravastatin Allergy Other Verified 04/23/24 22:58 prednisone Allergy Other Verified 04/23/24 22:58 propranolol Allergy Unknown Verified 04/23/24 22:58 simvastatin (From Zocor) Allergy Other Verified 04/23/24 22:58 sulfamethoxazole (From Allergy Other Verified 04/23/24 22:58 Bactrim) trimethoprim (From Bactrim) Allergy Other Verified 04/23/24 22:58 Family History Father Diabetes Hyperlipemia Heart disease Mother CHF (congestive heart failure) Heart disease CVA (cerebral vascular accident) Surgical History Hx [facility] Social History housing: house current occupational status: unemployed and disabled Smoking Status: Never smoker alcohol intake: never substance use type: does not use Physical Exam Const alert, oriented x3 and no apparent distress General Appearance: cooperative HEENT normocephalic and head/scalp atraumatic Eyes PERRL and EOMs intact bilaterally Neck supple and No nodes Resp Auscultation: diminished lung sounds Cardio regular rate and regular rhythm GI soft to palpation, non-tender and non-distended Extremity General Extremity: edema Skin no rashes or lesions noted Neuro CN's II-XII intact bilaterally Lab / Micro Data Attestation: I reviewed the patient's lab results. 04/26/24 08:42 04/26/24 08:42 Labs: Laboratory Results - last 24 hr 04/25/24 14:37: Sodium 136, Potassium 5.3 H, Chloride 98, Carbon Dioxide 31.0, Anion Gap 7, BUN 57 H, Creatinine 1.59 H, Estim Creat Clear Calc 69.69, Est GFR (MDRD) Af Amer 58 L, Est GFR (MDRD) Non-Af 48 L, BUN/Creatinine Ratio 35.8 H, G lucose 398 H, Calcium 8.6 04/25/24 16:14: POC Glucose 316 H 04/25/24 21:02: Vancomycin Trough 21.4 H 04/25/24 21:26: POC Glucose 335 H 04/26/24 08:42: WBC 8.0, RBC 3.57 L, Hgb 9.8 L, Hct 31.4 L, MCV 88.0, MCH 27.5, MCHC 31.2 L, RDW Std Deviation 51.5 H, RDW Coeff of Jung 16.2 H, Plt Count 225, MPV 8.7, Immature Gran % (Auto) 1.300 H, Neut % (Auto) 74.7 H, Lymph % (Auto) 13.0 L, [place] % (Auto) 10.5 H, Eos % (Auto) 0.1, Baso % (Auto) 0.4, Absolute Neuts (auto) 6.0, Absolute Lymphs (auto) 1.04, Nucleated RBC % 0.3, Sodium 135 L , Potassium 4.6, Chloride 99, Carbon Dioxide 33.0 H, Anion Gap 3 L, BUN 43 H, Creatinine 1.18, Estim Creat Clear Calc 94.99, Est GFR (MDRD) Af Amer 81, Est GFR (MDRD) Non-Af 67, BUN/Creatinine Ratio 36.4 H, Glucose 223 H, Calcium 8.8, R andom Vancomycin 15.5 H 04/26/24 09:43: POC Glucose 189 H 04/26/24 11:37: POC Glucose 247 H
--- NOTE | 2024-04-26 13:31 | WOUNDNOTE ---
Removed the TRINITY wraps and kerlix from bilateral lower legs and feet. no open areas noted. legs slightly less dry. washed legs and feet with soap and water. pat dry. applied Remedy moisturizer and wrapped legs with kerlix. reapplied the TRINITY wraps. pt tolerated well.
[2024-04-26 15:10] LABS: Bedside Glucose 299 mg/dL (74-106)
[2024-04-26 17:17] LABS: Bedside Glucose 413 mg/dL (74-106)
[2024-04-26 21:43] LABS: Bedside Glucose 382 mg/dL (74-106)
[2024-04-27] VITALS (11 sets, daily range): BP systolic 123–160; BP diastolic 56–76; PULSE 65–86; RESP 16–21; TEMP 36.4–36.9; O2SAT 93–99; BMI 63.9
[2024-04-27 05:58] LABS: Absolute Lymphocyte Count 1.16 X10^3/uL (0.83-4.51); Absolute Neutrophil Count 7.1 X10^3/uL (2.0-7.7); Basophil# 0.02 X10^3/uL; Basophil% 0.2 % (0-1); Hematocrit 31.3 % (40-54); Hemoglobin 9.8 g/dL (13.0-16.5); Lymphocyte # 1.16 X10^3/ul (0.83-4.51); Lymphocyte % 12.6 % (19-41); Mean Corp Hgb Conc 31.3 g/dL (32-36); Mean Corpuscular Hgb 27.5 pg (27.0-32.0); Mean Corpuscular Volume 87.9 fL (80-94); Mean Platelet Vol. 9.3 fl (6.2-12.0); Monocyte# 0.76 X10^3/uL; Monocyte% 8.3 % (0-10); NRBC Flagged by Analyzer 0 % (0-5); Neutrophil # 7.13 X10^3/uL (2.7-7.7); Neutrophil % 77.7 % (47-70); Platelet Count 233 K/mm3 (150-450); RBC Distribution Width CV 16.1 % (11.6-14.6); RBC Distribution Width SD 51.6 fl (35.1-43.9); Red Blood Count 3.56 M/mm3 (4.6-6.2); White Blood Count 9.2 K/mm3 (4.4-11.0)
[2024-04-27 06:10] LABS: Anion Gap 4 (5-15); BUN 36 mg/dL (7-18); BUN/Creat Ratio 32.7 RATIO (10-20); Calcium,Total 8.5 mg/dL (8.5-10.1); Chloride 97 mmol/L (98-107); EST Glomerular Filtration Rate 73 mL/min (>60); Est Glom Filt Rate - Afr Amer 88 mL/min (>60); Glucose 339 mg/dL (74-106); Potassium 4.9 mmol/L (3.5-5.1); Sodium Level 133 mmol/L (136-145)
[2024-04-27] MEDS: Ipratropium/Albuterol Sulfate 3 ML AMPUL.NEB INHALATION ×3 (08:03→15:27)
[2024-04-27] MEDS: Insulin Lispro 100 UNIT/ML INSULN.PEN SC ×2 (08:18→11:47)
[2024-04-27] MEDS: Insulin Lispro 100 UNIT/ML INSULN.PEN 10 UNIT SC ×2 (08:18→11:47)
--- NOTE | 2024-04-27 08:40 | DCINST_ITS ---
Discharge Instructions Follow Up Care Test Results: Test results from this visit will be discussed in further detail at your follow- up appointment, if applicable. Discharge Plan Admission Admit Date/Time: 04/24/24 01:32 Attending Provider: Esteban Scott Primary Care Provider: Nigel Silvestre Consulting Providers: Son Pérez; Gaby Hernandez; Benja Sexton Discharge Orders/Prescriptions Prescriptions: No Action omeprazole magnesium 20 MG tablet,delayed release (DR/EC) 20 mg PO DAILY liraglutide [Victoza 3-Benja] 0.6 mg/0.1 mL (18 mg/3 mL) Pen Injector 1.8 mg SUBCUT DAILY bumetanide 2 mg Tablet 2 mg PO DAILY Qty: 0 0RF albuterol sulfate 2.5 mg /3 mL (0.083 %) Solution For Nebulization 2.5 mg inhalation Q2H PRN PRN (Reason: Dyspnea, wheezing) Qty: 0 0RF guaifenesin 100 mg/5 mL Liquid 100 mg G-tube Q4H PRN PRN (Reason: Cough) Qty: 0 0RF losartan 50 mg Tablet 50 mg PO DAILY Qty: 0 0RF ipratropium-albuterol 0.5 mg-3 mg(2.5 mg base)/3 mL Solution For Nebulization 3 ml inhalation Q4HWA.RT 2 Days Qty: 0 0RF sennosides-docusate sodium [Stimulant Laxative Plus] 8.6-50 mg Tablet 2 tab G-tube BID PRN PRN (Reason: Constipation) Qty: 0 0RF isosorbide mononitrate 60 mg Tablet Extended Release 24 Hr 60 mg PO DAILY Qty: 0 0RF alum-mag hydroxide-simeth [Mag-Al Plus Extra Strength] 400-400-40 mg/5 mL Suspension 30 ml PO Q6H PRN PRN (Reason: Gastric Burning) Qty: 0 0RF insulin lispro [Humalog KwikPen Insulin] 100 unit/mL Insulin Pen 10 unit subcut TIDCM Qty: 0 0RF insulin lispro [Humalog KwikPen Insulin] 100 unit/mL Insulin Pen See Protocol subcut ACHS Qty: 0 0RF Protocol: 5. Sliding Scale Insulin High Dosing Condition: 150-209 mg/dl = 3 units Condition: 210-259 mg/dl = 6 units Condition: 260-324 mg/dl = 9 units Condition: 325-374 mg/dl = 12 units Condition: 375-409 mg/dl = 14 units Condition: 410-449 mg/dl = 16 units Condition: Greater than 449 call physician Protocol Text: Suggested for: - Patients on Total Daily Insulin Dose of 81-120 units - Very insulin resistant patients HIGH DOSING ALGORITHM insulin glargine-yfgn 100 unit/mL (3 mL) Insulin Pen 30 unit subcut BID Qty: 0 0RF gentamicin 0.1 % ointment 1 applic topical DAILY PRN (Reason: skin irritation) carvedilol 25 mg tablet 25 mg PO BID hydrocortisone 2.5 % cream 1 applic topical DAILY PRN (Reason: skin irritation) cetirizine [24Hour Allergy] 10 mg tablet 10 mg PO DAILY PRN (Reason: allergy symptoms) (DME) portable nebulizer See Rx Instructions .Route .MEDSUPPLY Qty: 1 0RF Rx Instructions: As directed ipratropium-albuterol 0.5 mg-3 mg(2.5 mg base)/3 mL solution for nebulization 3 ml INHALATION Q4H PRN (Reason: shortness of breath or wheezing) Qty: 180 3RF Referrals / Follow Up: Nigel Silvestre MD [Primary Care Provider] -
--- NOTE | 2024-04-27 08:50 | PCM.TXEXTCAR ---
Diet Diet Order/Speech Therapy: 04/24/24 04:10 Diet: Consistent Carb - Calorie Controlled Dietary Modifications:: Cardiac / Heart Healthy How many daily calories?: 1800 calorie DC O2, CPAP, BIPAP needs Home O2 Discharge instructions: Yes Type of respiratory needs?: Oxygen Oxygen frequency: Continuous Continuous oxygen liters per minute: 3 L/m Wound(s) Bilateral Lower Extremities: Wound Type: lichenification Problem/Diagnosis (1) Cellulitis: Status: Acute Code(s): L03.90 - Cellulitis, unspecified (2) Pneumonia due to 2019 novel coronavirus: Status: Acute Code(s): U07.1 - COVID-19; J12.82 - Pneumonia due to coronavirus disease 2019 (3) COPD exacerbation: Status: Chronic Code(s): J44.1 - Chronic obstructive pulmonary disease with (acute) exacerbation (4) Acute and chronic respiratory failure with hypercapnia: Status: Acute Code(s): J96.22 - Acute and chronic respiratory failure with hypercapnia (5) EITAN (acute kidney injury): Status: Acute Code(s): N17.9 - Acute kidney failure, unspecified (6) Acute hyperkalemia: Status: Acute Code(s): E87.5 - Hyperkalemia (7) CKD (chronic kidney disease), stage III: Status: Chronic Code(s): N18.30 - Chronic kidney disease, stage 3 unspecified Plan 58-year-old gentleman was admitted for shortness of breath, hypoxia pulse ox 85% on 5 L of oxygen from snf. He also had fatigue congestion and cough leading to worsening of shortness of breath. Usually wears 3 L of oxygen on baseline. 1. Bilateral COVID-19 pneumonia with suspected bacterial superinfection and superimposed pulmonary venous congestion and bilateral Lower Extremity Cellulitis - Admit to ICU under contact and droplet precautions. On IV Azactam. Has extensive allergy list with penicillin, Bactrim,, doxycycline and multiple other medications. Urinary antigens are negative. COVID-19 PCR positive. Patient had MSSA pneumonia in February 202404/25: Overall respiratory status has improved. Application Development Consultant signed off. 04/26: ID consult reviewed and appreciated. Sputum culture on 03/11/2024 grew MSSA on IV vancomycin and meropenem. Low suspicion of bacterial superinfection with normal WBC count no fever no rhonchi or sputum production. Vancomycin and meropenem restarted. Continue dexamethasone and remdesivir. 2. AE COPD with [id number] Hypoxic and Hypercapnic Respiratory Failure with ABG revealing severe respiratory acidosis with initial ABG revealing pH 7.26/ pCO2 80.4 mmHg/ pO2 72 mmHg/ bicarbonate 35.9 mmol/L on 10L NC requiring BiPAP. Application Development Consultant was consulted. Patient on a scheduled bronchodilator. On Decadron and remdesivir. 04/25: Patient on 4 to 5 L of oxygen, pulse ox 94 to 97%. No tachypnea. Blood pressure elevated. 3. EITAN; in the setting of CKD; stage IIIa with elevated serum creatinine of 2.2 mg/dL and BUN of 81 mg/dL (up from his baseline of 1.4-1.5 in November 2023. Gently volume resuscitate in patient with a known history of chronic diastolic CHF; with preserved LVEF. Follow strict I's & O's to prevent potential volume overload. 04/25: Creatinine 1.59. Hypokalemia, K5.3 better than yesterday. 4. Hyperkalemia of 5.9 mmol/L present on admission likely due to a combination of severe respiratory acidosis and EITAN compounding #1 - #3 - Patient was emergently treated with IV insulin, IV D50, oral Kayexalate and IV calcium gluconate in ER. We will recheck level in AM to confirm improvement. 5. Essential Hypertension; on carvedilol, losartan and bumetanide with suspected Adverse Drug Reaction to diuretic and ARB contributing to #3 & #4 - Hold losartan and bumetanide but continue carvedilol to prevent severe rebound tachycardia with patient likely to receive very frequent nebulizers. 04/25: Patient on Imdur 60 mg daily, carvedilol. On IV labetalol as needed. 6. Morbid Obesity; with BMI of 63.7 this admission in the setting of known MARYLU; noncompliant with CPAP adding to the medical complexity of #1 - #5 - Weight loss will be recommended. Check TSH. This complicates his case and may hamper recovery. 7. Recent admission here from March 10, 2024 to March 19, 2024 for treatment of AE COPD due to a combination of parainfluenza infection and MSSA pneumonia complicated by clinical evidence of acute on chronic hypoxic and hypercapnic respiratory failure compounded by EITAN in the setting of CKD; stage III 8. Chronic diastolic CHF; with preserved LVEF and mildly elevated BNP of 136 pg/mL present on admission mitigating against significant acute CHF -fluid status is good. 9. DM-2; of unknown control on liraglutide, insulin glargine 30U sq BID plus insulin lispro 10U sq TID and SSI - ADA diet to be started if patient improves on BiPAP. Continue insulin glargine and insulin lispro as previous but hold liraglutide while inpatient. 10. Hyperlipidemia; with intolerance to statins - Check Lipid Profile this admission. 11. History asthma/COPD; without previous tobacco abuse with subsequent chronic hypoxic respiratory failure on 3L NC continuous - Noted. 12. Chronic LE Lymphedema - Stable. 13. PVD; with history of non-pressure ulcers of both LE's - Stable. 14. Chronic normocytic anemia - Slightly worse with hemoglobin of 9.7 g/dL (down from his previous baseline of 11.8 g/dL last admission) and with a BUN/creatinine ratio of ~40:1 worrisome for possible bleeding. Hemoccult stools. Check iron studies and ferritin. 15. GERD; on omeprazole - Maintain on PPI. 16. OA - Give acetaminophen prn. 17. DVT prophylaxis - Heparin 5,000U sq TID plus SCD's. We will hold chemoprophylaxis if patient develops signs of bleeding. Allergies/Procedures Done in Hospital Allergies amlodipine (From Norvasc) Allergy (Verified 04/23/24 22:58) Other apraclonidine Allergy (Verified 04/23/24 22:58) Other diltiazem Allergy (Verified 04/23/24 22:58) Unknown doxycycline Allergy (Verified 04/23/24 22:58) Other enalapril Allergy (Verified 04/23/24 22:58) Other glimepiride Allergy (Verified 04/23/24 22:58) Other glipizide (From Glucotrol) Allergy (Verified 04/23/24 22:58) Other hydralazine Allergy (Verified 04/23/24 22:58) Other ibuprofen Allergy (Verified 04/23/24 22:58) Other Influenza Virus Vaccines Allergy (Verified 04/23/24 22:58) Unknown latex Allergy (Verified 04/23/24 22:58) Other lisinopril Allergy (Verified 04/23/24 22:58) Other metoprolol Allergy (Verified 04/23/24 22:58) Other montelukast Allergy (Verified 04/23/24 22:58) Other blurred vision Penicillins Allergy (Verified 04/23/24 22:58) Other pravastatin Allergy (Verified 04/23/24 22:58) Other prednisone Allergy (Verified 04/23/24 22:58) Other propranolol Allergy (Verified 04/23/24 22:58) Unknown simvastatin (From Zocor) Allergy (Verified 04/23/24 22:58) Other sulfamethoxazole (From Bactrim) Allergy (Verified 04/23/24 22:58) Other trimethoprim (From Bactrim) Allergy (Verified 04/23/24 22:58) Other Type of Care/Length of Stay Estimated LOS: More Than 30 Days Type of Care Needed: Intermediate Rehab Potential: Good Prognosis: Good Additional Orders/Day of Discharge Day of Discharge: 04/27/24 Dietary and Speech Recommendations Dietitian Recommendations/Changes: Continue Cardiac; 1800 calorie controlled/Consistent Carbohydrate. Will monitor weight trends. Will provide diet education at time of follow up if desired by pt. Discharge Plan Admission Admit Date/Time: 04/24/24 01:32 Primary Reason for Your Visit: COVID-19 pneumonia Attending Provider: Esteban Scott Primary Care Provider: Nigel Silvestre Consulting Providers: Son Péerz; Gaby Hernandez; Benja Sexton Discharge Orders/Prescriptions Prescriptions: New dexamethasone 6 mg tablet 6 mg PO DAILY 7 Days Qty: 7 0RF Continued omeprazole magnesium 20 MG tablet,delayed release (DR/EC) 20 mg PO DAILY liraglutide [Victoza 3-Benja] 0.6 mg/0.1 mL (18 mg/3 mL) Pen Injector 1.8 mg SUBCUT DAILY bumetanide 2 mg Tablet 2 mg PO DAILY Qty: 0 0RF albuterol sulfate 2.5 mg /3 mL (0.083 %) Solution For Nebulization 2.5 mg inhalation Q2H PRN PRN (Reason: Dyspnea, wheezing) Qty: 0 0RF guaifenesin 100 mg/5 mL Liquid 100 mg G-tube Q4H PRN PRN (Reason: Cough) Qty: 0 0RF ipratropium-albuterol 0.5 mg-3 mg(2.5 mg base)/3 mL Solution For Nebulization 3 ml inhalation Q4HWA.RT 2 Days Qty: 0 0RF sennosides-docusate sodium [Stimulant Laxative Plus] 8.6-50 mg Tablet 2 tab G-tube BID PRN PRN (Reason: Constipation) Qty: 0 0RF isosorbide mononitrate 60 mg Tablet Extended Release 24 Hr 60 mg PO DAILY Qty: 0 0RF alum-mag hydroxide-simeth [Mag-Al Plus Extra Strength] 400-400-40 mg/5 mL Suspension 30 ml PO Q6H PRN PRN (Reason: Gastric Burning) Qty: 0 0RF insulin lispro [Humalog KwikPen Insulin] 100 unit/mL Insulin Pen 10 unit subcut TIDCM Qty: 0 0RF insulin lispro [Humalog KwikPen Insulin] 100 unit/mL Insulin Pen See Protocol subcut ACHS Qty: 0 0RF Protocol: 5. Sliding Scale Insulin High Dosing Condition: 150-209 mg/dl = 3 units Condition: 210-259 mg/dl = 6 units Condition: 260-324 mg/dl = 9 units Condition: 325-374 mg/dl = 12 units Condition: 375-409 mg/dl = 14 units Condition: 410-449 mg/dl = 16 units Condition: Greater than 449 call physician Protocol Text: Suggested for: - Patients on Total Daily Insulin Dose of 81-120 units - Very insulin resistant patients HIGH DOSING ALGORITHM insulin glargine-yfgn 100 unit/mL (3 mL) Insulin Pen 30 unit subcut BID Qty: 0 0RF gentamicin 0.1 % ointment 1 applic topical DAILY PRN (Reason: skin irritation) carvedilol 25 mg tablet 25 mg PO BID hydrocortisone 2.5 % cream 1 applic topical DAILY PRN (Reason: skin irritation) cetirizine [24Hour Allergy] 10 mg tablet 10 mg PO DAILY PRN (Reason: allergy symptoms) (DME) portable nebulizer See Rx Instructions .Route .MEDSUPPLY Qty: 1 0RF Rx Instructions: As directed ipratropium-albuterol 0.5 mg-3 mg(2.5 mg base)/3 mL solution for nebulization 3 ml INHALATION Q4H PRN (Reason: shortness of breath or wheezing) Qty: 180 3RF Held losartan 50 mg Tablet 50 mg PO DAILY Qty: 0 0RF Hold Instructions: Hold for 3 days. Monitor kidney function Referrals / Follow Up: Grover Mena DO [Med Staff - Active Staff] - Within 1 Month Gaby Hernandez MD [Med Staff - Consulting] - Within 1 Month Nigel Silvestre MD [Primary Care Provider] - Disposition Disposition (needs filled in before D/C Order can be placed): Group Home Facility (1) Cellulitis Qualifiers: Site of cellulitis: extremity Site of cellulitis of extremity: lower extremity Laterality: unspecified laterality Qualified Code(s): L03.119 - Cellulitis of unspecified part of limb (7) CKD (chronic kidney disease), stage III Qualifiers: Chronic kidney disease stage 3 subtype: unspecified whether 3a or 3b Qualified Code(s): N18.30 - Chronic kidney disease, stage 3 unspecified
[2024-04-27] MEDS: Pantoprazole Sodium 20 MG Tablet PO (08:53)
[2024-04-27] MEDS: Carvedilol 25 MG Tablet PO (08:53)
[2024-04-27] MEDS: Zinc Sulfate 50 mg zinc (220 mg) ORAL capsule PO (08:53)
[2024-04-27] MEDS: Ascorbic Acid 500 MG Tablet 1000 MG PO (08:54)
[2024-04-27] MEDS: Isosorbide Mononitrate 60 MG Tablet PO (08:54)
[2024-04-27] MEDS: dexAMETHasone 10 MG/ML Vial 6 MG IV (08:54)
[2024-04-27] MEDS: Cholecalciferol (Vit D3) 125 MCG CAPSULE (5,000 UNITS) PO (08:54)
[2024-04-27] MEDS: 0.9% Saline Lock 10 ML Syringe IV ×2 (08:56→09:49)
--- NOTE | 2024-04-27 08:57 | DS.PCM_ITS ---
Providers Date of Admission: 04/24/24 Date of Discharge: 04/27/24 Primary Care Physician: Dr. Nigel Silvestre MD Consultations 04/24/24 06:45 Consult: Onc/Wound/behavioral health consultant Routine Comment: 04/24/24 07:45 Consult: Nephrology Routine Consulting Provider: Gaby Hernandez Reason for Consult: EITAN with CKD with hyperkalemia EMERGENT Consult: No MD Notified: Yes Date Notified: 04/24/24 Time Notified: 07:45 Method of Notification: Text 04/24/24 08:30 Consult: Workers Compensation Claims Supervisor / Pulmonary Medicine Routine Consulting Provider: Intensivists/Pulmonary Med Reason for Consult: Covid, asthma, copd EMERGENT Consult: No MD Notified: Yes Date Notified: 04/24/24 Time Notified: 08:31 Method of Notification: Verbal 04/25/24 15:23 Consult: Infectious Disease Routine Consulting Provider: Benja Sexton Reason for Consult: covid 19 with suspected bacterial secondary pneumonia EMERGENT Consult: No MD Notified: Yes Date Notified: 04/25/24 Time Notified: 15:24 Method of Notification: Text Reason For Visit: COVID 19, AE ASTHMA/COPD, HYPERKALEMIA & EITAN ON Diagnosis Discharge Diagnosis (1) Cellulitis: Status: Acute Code(s): L03.90 - Cellulitis, unspecified Qualifiers: Site of cellulitis: extremity Site of cellulitis of extremity: lower extremity Laterality: unspecified laterality Qualified Code(s): L03.119 - Cellulitis of unspecified part of limb (2) Pneumonia due to 2019 novel coronavirus: Status: Acute Code(s): U07.1 - COVID-19; J12.82 - Pneumonia due to coronavirus disease 2019 (3) COPD exacerbation: Status: Chronic Code(s): J44.1 - Chronic obstructive pulmonary disease with (acute) exacerbation (4) Acute and chronic respiratory failure with hypercapnia: Status: Acute Code(s): J96.22 - Acute and chronic respiratory failure with hypercapnia (5) EITAN (acute kidney injury): Status: Acute Code(s): N17.9 - Acute kidney failure, unspecified (6) Acute hyperkalemia: Status: Acute Code(s): E87.5 - Hyperkalemia (7) CKD (chronic kidney disease), stage III: Status: Chronic Code(s): N18.30 - Chronic kidney disease, stage 3 unspecified Qualifiers: Chronic kidney disease stage 3 subtype: unspecified whether 3a or 3b Q ualified Code(s): N18.30 - Chronic kidney disease, stage 3 unspecified Plan 58-year-old gentleman was admitted for shortness of breath, hypoxia pulse ox 85% on 5 L of oxygen from long-term. He also had fatigue congestion and cough leading to worsening of shortness of breath. Usually wears 3 L of oxygen on baseline. 1. Bilateral COVID-19 pneumonia with suspected bacterial superinfection and s uperimposed pulmonary venous congestion and bilateral Lower Extremity Cellulitis - Admit to ICU under contact and droplet precautions. On IV Azactam. Has extensive allergy list with penicillin, Bactrim,, doxycycline and multiple other medications. Urinary antigens are negative. COVID-19 PCR positive. Patient had MSSA pneumonia in February 202404/25: Overall respiratory status has improved. Workers Compensation Claims Supervisor signed off. 04/26: ID consult reviewed and appreciated. Sputum culture on 03/11/2024 grew MSSA on IV vancomycin and meropenem. Low suspicion of bacterial superinfection with normal WBC count no fever no rhonchi or sputum production. Vancomycin and meropenem restarted. Continue dexamethasone and remdesivir. 04/27: Patient shortness of breath is much improved. Sitting in the chair. Currently on 3 L of oxygen 2. AE COPD with Bwiti-mn-Lfhgnxy Hypoxic and Hypercapnic Respiratory Failure with ABG revealing severe respiratory acidosis with initial ABG revealing pH 7.26/ pCO2 80.4 mmHg/ pO2 72 mmHg/ bicarbonate 35.9 mmol/L on 10L NC requiring BiPAP. Workers Compensation Claims Supervisor was consulted. Patient on a scheduled bronchodilator. On Decadron and remdesivir. 04/25: Patient on 4 to 5 L of oxygen, pulse ox 94 to 97%. No tachypnea. Blood pressure elevated. 04/27: Minimal wheezing otherwise lungs has become clear. 3. EITAN; in the setting of CKD; stage IIIa with elevated serum creatinine of 2.2 mg/dL and BUN of 81 mg/dL (up from his baseline of 1.4-1.5 in November 2023. Gently volume resuscitate in patient with a known history of chronic diastolic CHF; with preserved LVEF. Follow strict I's & O's to prevent potential volume overload. 04/25: Creatinine 1.59. Hypokalemia, K5.3 better than yesterday. 04/27: EITAN resolved. Creatinine 1.1. Bumex resumed. Continue holding losartan. Follow-up nephrology as an outpatient. 4. Hyperkalemia of 5.9 mmol/L present on admission likely due to a combination of severe respiratory acidosis and EITAN compounding #1 - #3 - Patient was emergently treated with IV insulin, IV D50, oral Kayexalate and IV calcium gluconate in ER. We will recheck level in AM to confirm improvement. 04/27: Hyperkalemia resolved. Potassium 4.9. Continue holding losartan. 5. Essential Hypertension; on carvedilol, losartan and bumetanide with suspected Adverse Drug Reaction to diuretic and ARB contributing to #3 & #4 - Hold losartan and bumetanide but continue carvedilol to prevent severe rebound tachycardia with patient likely to receive very frequent nebulizers. 04/25: Patient on Imdur 60 mg daily, carvedilol. On IV labetalol as needed. 04/27: Blood pressure is controlled 6. Morbid Obesity; with BMI of 63.7 this admission in the setting of known MARYLU; noncompliant with CPAP adding to the medical complexity of #1 - #5 - Weight loss will be recommended. Check TSH. This complicates his case and may hamper recovery. 7. Recent admission here from March 10, 2024 to March 19, 2024 for treatment of AE COPD due to a combination of parainfluenza infection and MSSA pneumonia complicated by clinical evidence of acute on chronic hypoxic and hypercapnic respiratory failure compounded by EITAN in the setting of CKD; stage III 8. Chronic diastolic CHF; with preserved LVEF and mildly elevated BNP of 136 pg/mL present on admission mitigating against significant acute CHF -fluid status is good. 9. DM-2; of unknown control on liraglutide, insulin glargine 30U sq BID plus insulin lispro 10U sq TID and SSI - ADA diet to be started if patient improves on BiPAP. Continue insulin glargine and insulin lispro as previous but hold liraglutide while inpatient. 10. Hyperlipidemia; with intolerance to statins - Fasting profile shows HDL 39, LDL 122, total cholesterol 182. Triglycerides 187. 11. History asthma/COPD; without previous tobacco abuse with subsequent chronic hypoxic respiratory failure on 3L NC continuous - Noted. 12. Chronic LE Lymphedema - Stable. 13. PVD; with history of non-pressure ulcers of both LE's - Stable. 14. Chronic normocytic anemia - Slightly worse with hemoglobin of 9.7 g/dL (down from his previous baseline of 11.8 g/dL last admission) and with a BUN/creatinine ratio of ~40:1 worrisome for possible bleeding. Hemoccult stools. Check iron studies and ferritin. 15. GERD; on omeprazole - Maintain on PPI. 16. OA - Give acetaminophen prn. 17. DVT prophylaxis - Heparin 5,000U sq TID plus SCD's. We will hold chemoprophylaxis if patient develops signs of bleeding. Discharge medication reconciliation done. Discharge follow-up instructions completed. Discharge process discussed with the patient and all questions were answered to patient's satisfaction. Follow with PCP in 1 to 2 weeks Total time spent, exact 35 minutes on discharge meds reconciliation, examination, coordination of care with nurses and ancillary staff, review of imaging and blood test and discussion with the patient on follow-up instructions. Medications at Discharge Home Medications omeprazole magnesium 20 mg tablet,delayed release 20 mg PO DAILY stomach 06/01/19 portable nebulizer #1 ea 12/31/20 ipratropium 0.5 mg-albuterol 3 mg (2.5 mg base)/3 mL nebulization soln 3 ml inhalation Q4H PRN shortness of breath or wheezing #180 mL 01/06/21 liraglutide 0.6 mg/0.1 mL (18 mg/3 mL) subcutaneous pen injector (Victoza 3-Benja) 1.8 mg subcut DAILY diabetes 06/29/21 carvedilol 25 mg tablet 25 mg PO BID heart 12/14/23 cetirizine 10 mg tablet (24Hour Allergy) 10 mg PO DAILY PRN allergy symptoms 12/14/23 gentamicin 0.1 % topical ointment 1 applic topical DAILY PRN skin irritation 12/14/23 hydrocortisone 2.5 % topical cream 1 applic topical DAILY PRN skin irritation 12/14/23 albuterol sulfate 2.5 mg/3 mL (0.083 %) solution for nebulization 2.5 mg (3 mL) inhalation Q2H PRN PRN Dyspnea, wheezing #0 mL 24/24 aluminum-mag hydroxide-simethicone 400 mg-400 mg-40 mg/5 mL oral susp (Mag-Al Plus Extra Strength) 30 ml PO Q6H PRN PRN Gastric Burning #0 mL 24 bumetanide 2 mg tablet 2 mg PO DAILY #0 tabs 24 guaifenesin 100 mg/5 mL oral liquid 100 mg (5 mL) G-tube Q4H PRN PRN Cough #0 mL 24 insulin glargine-yfgn 100 unit/mL (3 mL) subcutaneous pen 30 unit (0.3 mL) subcut BID #0 mL 24 insulin lispro 100 unit/mL subcutaneous pen (Humalog KwikPen (U-100) Insulin) 10 unit (0.1 mL) subcut TIDCM #0 mL 24 insulin lispro 100 unit/mL subcutaneous pen (Humalog KwikPen (U-100) Insulin) See Protocol subcut ACHS #0 mL 03/19/24 ipratropium 0.5 mg-albuterol 3 mg (2.5 mg base)/3 mL nebulization soln 3 ml inhalation Q4HWA.RT 2 days #0 mL 24 isosorbide mononitrate 60 mg tablet,extended release 24 hr 60 mg PO DAILY #0 tabs 03/19/24 losartan 50 mg tablet 50 mg PO DAILY #0 tabs 03/19/24 Held on 04/27/24. Instructions: Hold for 3 days. Monitor kidney function sennosides 8.6 mg-docusate sodium 50 mg tablet (Stimulant Laxative Plus) 2 tab G-tube BID PRN PRN Constipation #0 tabs 03/19/24 dexamethasone 6 mg tablet 6 mg PO DAILY 7 days #7 tabs 04/27/24 Physical Exam Narrative Seen and examined Patient respiratory status is improved. On 3 L of oxygen. Sitting on the chair Physical exam General: Awake, alert oriented x 3 BMI 63.3 kg/m?, morbid obesity HEENT: Atraumatic, PERRLA, EOMI, Normocephalic Oral: On onset of oxygen Neck: Short and wide, supple, JVP could not be easily visualized Chest wall/Lungs: Air entry diminished in bilateral lung bases. No crepitation/rhonchi. Cardiovascular: Sinus rhythm, Normal S1, Normal S2, No M/G/R Abdomen: Bowel Sounds Present, Soft, Non Tender, Non-Distended : No dysuria. No renal angle tenderness. No suprapubic tenderness. Extremities: Bilateral edema. Chronic lymphedema with hypertrophy of soft tissue Skin: No rashes, No breakdown Musculoskeletal: No Tenderness to Palpation of Joints or Extremities. Lower extremity at hips and knees ROM decreased Neurological: No focal neurological deficit. Psych/Mental Status: Flat affect Weight / BMI Weight Weight: 361 lb Body Mass Index (BMI) 63.9 ABG / Lab / Microbiology Data 04/27/24 04:31 04/27/24 04:31 Laboratory: Laboratory Results - last 24 hr 04/26/24 08:42: Sodium 135 L, Potassium 4.6, Chloride 99, Carbon Dioxide 33.0 H, Anion Gap 3 L, BUN 43 H, Creatinine 1.18, Estim Creat Clear Calc 94.99, Est GFR (MDRD) Af Amer 81, Est GFR (MDRD) Non-Af 67, BUN/Creatinine Ratio 36.4 H, G lucose 223 H, Calcium 8.8, Random Vancomycin 15.5 H 04/26/24 09:43: POC Glucose 189 H 04/26/24 11:37: POC Glucose 247 H 04/26/24 14:44: POC Glucose 299 H 04/26/24 16:53: POC Glucose 413 H 04/26/24 21:20: POC Glucose 382 H 04/27/24 04:31: WBC 9.2, RBC 3.56 L, Hgb 9.8 L, Hct 31.3 L, MCV 87.9, MCH 27.5, MCHC 31.3 L, RDW Std Deviation 51.6 H, RDW Coeff of Jung 16.1 H, Plt Count 233, MPV 9.3, Immature Gran % (Auto) 1.200 H, Neut % (Auto) 77.7 H, Lymph % (Auto) 12.6 L, [place] % (Auto) 8.3, Eos % (Auto) 0.0, Baso % (Auto) 0.2, Absolute Neuts (auto) 7.1, Absolute Lymphs (auto) 1.16, Nucleated RBC % 0, Sodium 133 L, Potassium 4.9, Chloride 97 L, Carbon Dioxide 32.0, Anion Gap 4 L, BUN 36 H, Creatinine 1.10, Estim Creat Clear Calc 101.90, Est GFR (MDRD) Af Amer 88, Est GFR (MDRD) Non-Af 73, BUN/Creatinine Ratio 32.7 H, Glucose 339 H, Calcium 8.5 Microbiology: Microbiology 04/26/24 11:00 Nasal Secretion MRSA (PCR) - Final 04/24/24 04:17 Urine, Random Legionella Antigen - Final 04/24/24 04:17 Urine, Random Streptococcus pneumoniae Antigen (M - Final 04/23/24 23:24 Mucosa - Nose SARS-CoV-2, Influenza & RSV (PCR) - Final SARS-CoV-2 (COVID 19 PCR) D/C Instructions DC O2, CPAP, BIPAP Needs PSN CPAP & BiPAP: BiPAP & CPAP Settings per PSN Mode AVAPS 04/24/24 11:59 Bipap Delivery Device Face Mask 04/26/24 20:27 BiPAP Expiratory Pressure 10 04/24/24 11:59 BiPAP Rate 20 04/24/24 11:59 Fraction of Inspired Oxygen ( 40 04/24/24 11:59 FIO2) Home O2 Discharge instructions: Yes Type of respiratory needs?: Oxygen Oxygen frequency: Continuous Continuous oxygen liters per minute: 3 L/m DC home with Oxygen: Yes Home O2 MD Review: I have reviewed the oxygen testing, and the patient qualifies for home oxygen equipment and portability. The patient is mobile in the home and the community. Meaningful Use Info Meaningful Use Meaningful Use Diagnoses (Choose all that apply): None applicable Ischemic Stroke Statin Dosing Therapy Reference: STATIN DOSE THERAPY REFERENCE: * Patients > 75 years receive moderate or high dose statin therapy. * Patients 75 years or YOUNGER should receive HIGH intensity statin dose unless contraindicated. You will be required to document reason for non-treatment if statin daily dose does not meet guidelines. HIGH DOSE STATIN THERAPY DAILY Atorvastatin > than or = to 40 mg Rosuvastatin > than or = to 20 mg Amlodipine + Atorvastatin > than or = to 2.5/40 mg Ezetimibe + Simvastatin 10/80 mg Simvastatin 80mg Discharge Plan Admission Admit Date/Time: 04/24/24 01:32 Primary Reason for Your Visit: COVID-19 pneumonia Attending Provider: Esteban Scott Primary Care Provider: Nigel Silvestre Consulting Providers: Son Pérez; Gaby Hernandez; Benja Sexton Discharge Orders/Prescriptions Prescriptions: New dexamethasone 6 mg tablet 6 mg PO DAILY 7 Days Qty: 7 0RF Continued omeprazole magnesium 20 MG tablet,delayed release (DR/EC) 20 mg PO DAILY liraglutide [Victoza 3-Benja] 0.6 mg/0.1 mL (18 mg/3 mL) Pen Injector 1.8 mg SUBCUT DAILY bumetanide 2 mg Tablet 2 mg PO DAILY Qty: 0 0RF albuterol sulfate 2.5 mg /3 mL (0.083 %) Solution For Nebulization 2.5 mg inhalation Q2H PRN PRN (Reason: Dyspnea, wheezing) Qty: 0 0RF guaifenesin 100 mg/5 mL Liquid 100 mg G-tube Q4H PRN PRN (Reason: Cough) Qty: 0 0RF ipratropium-albuterol 0.5 mg-3 mg(2.5 mg base)/3 mL Solution For Nebulization 3 ml inhalation Q4HWA.RT 2 Days Qty: 0 0RF sennosides-docusate sodium [Stimulant Laxative Plus] 8.6-50 mg Tablet 2 tab G-tube BID PRN PRN (Reason: Constipation) Qty: 0 0RF isosorbide mononitrate 60 mg Tablet Extended Release 24 Hr 60 mg PO DAILY Qty: 0 0RF alum-mag hydroxide-simeth [Mag-Al Plus Extra Strength] 400-400-40 mg/5 mL Suspension 30 ml PO Q6H PRN PRN (Reason: Gastric Burning) Qty: 0 0RF insulin lispro [Humalog KwikPen Insulin] 100 unit/mL Insulin Pen 10 unit subcut TIDCM Qty: 0 0RF insulin lispro [Humalog KwikPen Insulin] 100 unit/mL Insulin Pen See Protocol subcut ACHS Qty: 0 0RF Protocol: 5. Sliding Scale Insulin High Dosing Condition: 150-209 mg/dl = 3 units Condition: 210-259 mg/dl = 6 units Condition: 260-324 mg/dl = 9 units Condition: 325-374 mg/dl = 12 units Condition: 375-409 mg/dl = 14 units Condition: 410-449 mg/dl = 16 units Condition: Greater than 449 call physician Protocol Text: Suggested for: - Patients on Total Daily Insulin Dose of 81-120 units - Very insulin resistant patients HIGH DOSING ALGORITHM insulin glargine-yfgn 100 unit/mL (3 mL) Insulin Pen 30 unit subcut BID Qty: 0 0RF gentamicin 0.1 % ointment 1 applic topical DAILY PRN (Reason: skin irritation) carvedilol 25 mg tablet 25 mg PO BID hydrocortisone 2.5 % cream 1 applic topical DAILY PRN (Reason: skin irritation) cetirizine [24Hour Allergy] 10 mg tablet 10 mg PO DAILY PRN (Reason: allergy symptoms) (DME) portable nebulizer See Rx Instructions .Route .MEDSUPPLY Qty: 1 0RF Rx Instructions: As directed ipratropium-albuterol 0.5 mg-3 mg(2.5 mg base)/3 mL solution for nebulization 3 ml INHALATION Q4H PRN (Reason: shortness of breath or wheezing) Qty: 180 3RF Held losartan 50 mg Tablet 50 mg PO DAILY Qty: 0 0RF Hold Instructions: Hold for 3 days. Monitor kidney function Referrals / Follow Up: Grover Mena DO [Med Staff - Active Staff] - Within 1 Month Gaby Hernandez MD [Med Staff - Consulting] - Within 1 Month Nigel Silvestre MD [Primary Care Provider] - Disposition Disposition (needs filled in before D/C Order can be placed): [facility] Facility Charges/Coding Addendum Addendum: Maintain COVID isolation for 5 more days. Visit Charges Inpatient E&M: 27691 Disch Hosp >30min
[2024-04-27] MEDS: Insulin Glargine-YFGN 100 UNIT/ML Pen 30 UNIT SC (09:00)
[2024-04-27 09:02] LABS: Bedside Glucose 266 mg/dL (74-106)
[2024-04-27] MEDS: Remdesivir 100 MG in 0.9% Normal Saline (250mL Bag) 230 ML 250 MG IV (09:49)
--- NOTE | 2024-04-27 10:37 | NURSING ---
Addendum entered by Shey Johnson 04/27/24 14:30: 1420 [facility] has called several time delaying transport time. New pickup time 1600 Original Note: 1020 Report called to [facility]. Called [facility]- transport set up for 1230
[2024-04-27 12:18] LABS: Bedside Glucose 302 mg/dL (74-106)
[2024-04-27] MEDS: Heparin Injection (Vial) 5,000 UNIT/ML VIAL 5000 UNIT SC (14:33)
== END 2024-04-27 16:50 | disposition skilled nursing facility (03) | DRG 177 ==
LOC: ED 04-24 01:26 → ICU 04-24 02:20
PROVIDERS: Internal Medicine Critical Care Medicine; Internal Medicine Nephrology; Admitting Provider Internal Medicine; Emergency Provider Emergency Medicine; PCP Family Medicine; Visit Provider Internal Medicine
DX: U07.1 COVID-19 (principal); J96.22 Acute and chronic respiratory failure with hypercapnia; J96.21 Acute and chronic respiratory failure with hypoxia; J12.82 Pneumonia due to coronavirus disease 2019; I13.0 Hypertensive heart and chronic kidney disease with heart failure and stage 1 through stage 4 chronic kidney disease, or unspecified chronic kidney disease; J44.1 Chronic obstructive pulmonary disease with (acute) exacerbation; Z68.44 Body mass index [BMI] 60.0-69.9, adult; I50.32 Chronic diastolic (congestive) heart failure; N17.9 Acute kidney failure, unspecified; J44.0 Chronic obstructive pulmonary disease with (acute) lower respiratory infection; L03.115 Cellulitis of right lower limb; L03.116 Cellulitis of left lower limb; D63.1 Anemia in chronic kidney disease; E11.22 Type 2 diabetes mellitus with diabetic chronic kidney disease; N18.31 Chronic kidney disease, stage 3a; E66.01 Morbid (severe) obesity due to excess calories; E87.5 Hyperkalemia; E78.5 Hyperlipidemia, unspecified; K21.9 Gastro-esophageal reflux disease without esophagitis; E11.51 Type 2 diabetes mellitus with diabetic peripheral angiopathy without gangrene; G47.33 Obstructive sleep apnea (adult) (pediatric); E11.65 Type 2 diabetes mellitus with hyperglycemia; Z79.4 Long term (current) use of insulin; Z91.198 Patient's noncompliance with other medical treatment and regimen for other reason; Z99.81 Dependence on supplemental oxygen; Z79.85 Long-term (current) use of injectable non-insulin antidiabetic drugs; Z79.899 Other long term (current) drug therapy
CPT/HCPCS: 36415; 36600; 71045; 80048; 80053; 80061; 80202; 82728; 82803; 82962; 83036; 83540; 83550; 83605; 83735; 83880; 84075; 84100; 84439; 84443; 84481; 85025; 85027; 87449; 87631; 87641; 93005; 94002; 94640; 94762; 97162; 97166; 97530; 97535; 97802; 99252; 99285; J2185; A4216; G0463; J0248; J0612; J1940; J2405

== ENCOUNTER 2024-05-26 23:07 | Inpatient (IN) | payer MEDICARE, MEDICAID, SELFPAY ==
[2024-05-26 23:09] VITALS: PULSE 87; RESP 20; TEMP 36.2; O2SAT 97; BMI 50.8
[2024-05-26 23:13] VITALS: BP 160/58; PULSE 86; RESP 21; TEMP 36.5; O2SAT 87
[2024-05-26 23:21] VITALS: O2SAT 93
--- NOTE | 2024-05-26 23:21 | EKG12_ITS ---
Test Reason : SOB Blood Pressure : */* mmHG Vent. Rate : 85 BPM Atrial Rate : 85 BPM P-R Int : 162 ms QRS Dur : 86 ms QT Int : 348 ms P-R-T Axes : 30 116 50 degrees QTcB Int : 414 ms Normal sinus rhythm Right axis deviation Low voltage QRS Abnormal ECG Confirmed by Eduardo Jackson ([id number]), sound editor GIGI VALENTINE ([id number]) on 05/28/2024 10:51:08 AM Referred By: Confirmed By: Eduardo Jackson
--- NOTE | 2024-05-26 23:23 | ED.VIS.DYS ---
HPI History of Present Illness Chief Complaint: Shortness of Breath Informant: patient and EMS Narrative Narrative: Brought in by EMS from [facility] for increasing dyspnea. He has been at the facility since . Ambulates with a walker. Chronic 3 L with oxygenation. History of lymphedema and heart failure. He was discharged to facility reporting then diagnosed with COPD without tobacco history. He denies any diagnosed sleep apnea. States over the past week increasing dyspnea worse with exertion. No chest pain or tightness. Chronic lymphedema. He reports chronic orthopnea. He was started on prednisone today denied any wheezing. He had an outpatient chest x-ray with interpretation brought in that was negative. Denies history of blood clots in legs or lungs. Does not take any anticoagulants. History of chronic kidney disease stage III. Patient brought in on 15 L nonrebreather. Denies fever, chills, sweats, myalgias. Denies vomiting or diarrhea. [facility] Medical History Chronic obstructive pulmonary disease with acute respiratory distress Parainfluenza infection MSSA (methicillin susceptible Staphylococcus aureus) pneumonia Morbid obesity CKD (chronic kidney disease), stage III MARYLU (obstructive sleep apnea) HLD (hyperlipidemia) Insulin dependent diabetes mellitus Chronic respiratory failure with hypoxia and hypercapnia (HFpEF) heart failure with preserved ejection fraction Non-smoker Asthma HTN (hypertension) COPD (chronic obstructive pulmonary disease) Non-compliance Lymphedema Ulcer of left lower extremity with fat layer exposed Ulcer of right lower extremity with fat layer exposed Home Medications ?Medication ?Instructions ?Recorded ?Last Taken ?Type omeprazole magnesium 20 mg 20 mg PO DAILY stomach 06/01/19 12/13/23 History tablet,delayed release portable nebulizer #1 ea 12/31/20 Unknown Rx ipratropium 0.5 mg-albuterol 3 mg 3 ml inhalation Q4H PRN shortness 01/06/21 12/13/23 Rx (2.5 mg base)/3 mL nebulization of breath or wheezing #180 mL soln liraglutide 0.6 mg/0.1 mL (18 mg/3 1.8 mg subcut DAILY diabetes 06/29/21 12/13/23 History mL) subcutaneous pen injector (Victoza 3-Benja) carvedilol 25 mg tablet 25 mg PO BID heart 12/14/23 12/13/23 History cetirizine 10 mg tablet (24Hour 10 mg PO DAILY PRN allergy symptoms 12/14/23 12/14/23 History Allergy) gentamicin 0.1 % topical ointment 1 applic topical DAILY PRN skin 12/14/23 12/13/23 History irritation hydrocortisone 2.5 % topical cream 1 applic topical DAILY PRN skin 12/14/23 12/13/23 History irritation aluminum-mag hydroxide-simethicone 30 ml PO Q6H PRN PRN Gastric 03/19/24 Unknown Rx 400 mg-400 mg-40 mg/5 mL oral susp Burning #0 mL (Mag-Al Plus Extra Strength) bumetanide 2 mg tablet 2 mg PO DAILY #0 tabs 03/19/24 Unknown Rx insulin lispro 100 unit/mL 10 unit (0.1 mL) subcut TIDCM #0 mL 03/19/24 Unknown Rx subcutaneous pen (Humalog KwikPen (U-100) Insulin) insulin lispro 100 unit/mL See Protocol subcut ACHS #0 mL 03/19/24 Unknown Rx subcutaneous pen (Humalog KwikPen (U-100) Insulin) ipratropium 0.5 mg-albuterol 3 mg 3 ml inhalation Q4HWA.RT 2 days #0 03/19/24 Unknown Rx (2.5 mg base)/3 mL nebulization mL soln isosorbide mononitrate 60 mg 60 mg PO DAILY #0 tabs 03/19/24 Unknown Rx tablet,extended release 24 hr losartan 50 mg tablet 50 mg PO DAILY #0 tabs 03/19/24 Unknown Rx albuterol sulfate 2.5 mg/3 mL 2.5 mg inhalation Q4H PRN Dyspnea, 05/26/24 Unknown History (0.083 %) solution for nebulization wheezing guaifenesin 100 mg/5 mL oral liquid 100 mg PO Q4H PRN PRN Cough 05/26/24 Unknown History insulin glargine-yfgn 100 unit/mL 50 unit subcut BID 05/26/24 Unknown History (3 mL) subcutaneous pen prednisone 20 mg tablet 40 mg PO DAILY 05/26/24 Unknown History sennosides 8.6 mg-docusate sodium 2 tab PO BID PRN PRN Constipation 05/26/24 Unknown History 50 mg tablet (Stimulant Laxative Plus) Allergy/AdvReac Type Severity Reaction Status Date / Time amlodipine (From Norvasc) Allergy Other Verified 05/26/24 23:08 apraclonidine Allergy Other Verified 05/26/24 23:08 diltiazem Allergy Unknown Verified 05/26/24 23:08 doxycycline Allergy Other Verified 05/26/24 23:08 enalapril Allergy Other Verified 05/26/24 23:08 glimepiride Allergy Other Verified 05/26/24 23:08 glipizide (From Glucotrol) Allergy Other Verified 05/26/24 23:08 hydralazine Allergy Other Verified 05/26/24 23:08 ibuprofen Allergy Other Verified 05/26/24 23:08 Influenza Virus Vaccines Allergy Unknown Verified 05/26/24 23:08 latex Allergy Other Verified 05/26/24 23:08 lisinopril Allergy Other Verified 05/26/24 23:08 metoprolol Allergy Other Verified 05/26/24 23:08 montelukast Allergy Other Verified 05/26/24 23:08 Penicillins Allergy Other Verified 05/26/24 23:08 pravastatin Allergy Other Verified 05/26/24 23:08 prednisone Allergy Other Verified 05/26/24 23:08 propranolol Allergy Unknown Verified 05/26/24 23:08 simvastatin (From Zocor) Allergy Other Verified 05/26/24 23:08 sulfamethoxazole (From Allergy Other Verified 05/26/24 23:08 Bactrim) trimethoprim (From Bactrim) Allergy Other Verified 05/26/24 23:08 Family History Father Diabetes Hyperlipemia Heart disease Mother CHF (congestive heart failure) Heart disease CVA (cerebral vascular accident) Surgical History Hx of [facility] Social History housing: house current occupational status: unemployed and disabled Smoking Status: Never smoker alcohol intake: never substance use type: does not use ROS ROS ED Constitutional Constitutional ED: Denies chills, fever(s) or sweats ENT ENT ED: Denies sore throat Cardiovascular Cardiovascular: Reports leg edema and orthopnea; Denies chest pain, palpitations or racing heartbeat Respiratory/Chest Respiratory/Chest: Reports dyspnea, dyspnea on exertion and orthopnea; Denies cough Gastrointestinal Gastrointestinal: Denies abdominal pain, diarrhea, nausea or vomiting Genitourinary Genitourinary ED: Denies dysuria, hematuria or urinary frequency Musculoskeletal Musculoskeletal: Denies back pain, extremity pain or neck pain Integumentary Denies rash or wounds Neurologic Neurologic: Denies headache(s), paresthesias or weakness EXAM Physical Exam Const Vital Signs: 05/26/24 23:09 05/26/24 23:09 05/26/24 23:13 Temperature 97.2 F L 97.7 F L Temperature Source Temporal Temporal Pulse Rate 87 86 Respiratory Rate 20 H 21 H Respiratory Effort Short of Breath Respiratory Depth Shallow Respiratory Pattern Tachypnea Blood Pressure 160/58 H Blood Pressure Mean 92 Pulse Ox 87 Oxygen Delivery Method Non-Rebreather Nasal Cannula Oxygen Flow Rate (L/min) 15 3 05/26/24 23:21 05/27/24 00:13 05/27/24 00:53 Temperature 97.9 F Temperature Source Temporal Pulse Rate 84 82 Respiratory Rate 25 H 20 H Respiratory Effort Respiratory Depth Respiratory Pattern Blood Pressure 157/75 H Blood Pressure Mean 102 Pulse Ox 93 91 94 Oxygen Delivery Method High Flow High Flow Oxygen Flow Rate (L/min) 10 8 05/27/24 01:00 05/27/24 01:00 05/27/24 01:15 Temperature 97.9 F Temperature Source Oral Pulse Rate 81 82 83 Respiratory Rate 25 H 23 H 18 Respiratory Effort Respiratory Depth Respiratory Pattern Blood Pressure 158/62 H 148/64 H Blood Pressure Mean 94 86 Pulse Ox 95 95 95 Oxygen Delivery Method High Flow Oxygen Flow Rate (L/min) 8 Positive well nourished and well developed Constitutional Narrative: Currently 6 L nasal cannula 92%. General Appearance ED: well developed and NAD HEENT Reports moist mucous membranes normocephalic and atraumatic Eyes General Eye ED: Yes normal appearance of both eyes Neck full ROM Chest Wall Chest: Negative for tenderness Resp normal respiratory effort and normal air movement Effort and Inspection: symmetric chest movement; Negative for respiratory distress Cardio regular rate, regular rhythm and no murmurs Peripheral Pulses: pulses 2+ throughout GI normal to inspection, nondistended, normoactive bowel sounds and non-tender Palpation: Negative for guarding or rebound tenderness present Extremity normal to inspection Extremity Narrative: Lymphedema with Wallace wrap dressings bilateral legs. No calf tenderness. General Extremety ED: Yes edema; Negative for tenderness General Extremity: edema Neuro oriented x3 and no sensory deficits noted Sensorium / Orientation: awake and alert Skin no rashes or lesions noted and no wounds MDM MDM MDM Narrative Medical decision making narrative: Interventions / MDM: Differential diagnosis: Pulmonary embolism, hypoxia, COPD Diagnosis considered but do not suspect: N/A My EKG interpretation: Sinus rhythm 85, no ST or T wave changes QTc 414. Imaging independently reviewed and interpreted by myself: CT angiogram chest: Right middle right lower lobe PE groundglass changes upper lobes. External documents reviewed: N/A Test considered but not ordered:N/A ED course: Patient currently increasing oxygen demand with hypoxia on 6 L. Normal chest x-ray today. No infectious symptoms. He has chronic lymphedema. Will check EKG and labs. Will send for nasal swabs. Will check CT angiogram chest as he had a normal chest x-ray today. 0025: Patient creatinine 1.82 GFR 42. Glucose 498 with gap of 9. Hemolyzed potassium 6.2. Due to increasing renal insufficiency we will redraw potassium. Order for 5 cc normal saline bolus as plans for his CTA chest. He is also ordered for 20 units of insulin for his hyperglycemia. 0105: Received call from radiologist CT angiogram nonocclusive right lower lobe PE along with a right middle lobe PE small segments, no central PE. No heart strain. Reports groundglass changes upper lobes and not lower lobes stating could be infectious etiology. With his worsening renal insufficiency, GFR of 42, will start heparin drip. I will discuss with hospitalist for admission. 0117: I spoke with Dr. Rm for admission. Will place in the ICU. Re-evaluation: stable Disposition discussed with patient/family/significant other: Patient Case discussed with consulting clinician: Hospitalist This note was generated with [employer] dictation software. It may contain incorrect words, spelling, and punctuation that were not noted in checking the note before signing. Lab Data Attestation: I reviewed the patient's lab results. Labs: Laboratory Results - last 24 hr 05/26/24 05/27/24 23:48 00:43 WBC 6.7 RBC 3.85 L Hgb 10.7 L Hct 34.5 L MCV 89.6 MCH 27.8 MCHC 31.0 L RDW Std Deviation 50.4 H RDW Coeff of Jung 15.5 H Plt Count 325 MPV 9.7 Immature Gran % (Auto) 1.500 H Neut % (Auto) 84.3 H Lymph % (Auto) 10.8 L [place] % (Auto) 2.7 Eos % (Auto) 0.1 Baso % (Auto) 0.6 Absolute Neuts (auto) 5.6 Absolute Lymphs (auto) 0.72 L Nucleated RBC % 0.3 PT 13.7 INR 1.0 APTT 27.8 Sodium 130 L Potassium 6.2 H* 5.6 H Chloride Direct 93 L Carbon Dioxide 27.6 Anion Gap 9 BUN 58 H Creatinine 1.82 H Estim Creat Clear Calc 53.30 Est GFR (MDRD) Non-Af 42 L BUN/Creatinine Ratio 31.9 H Glucose 498 H* Calcium 9.0 Magnesium 1.7 NT pro BNP II 728 ABG Data ABG results: ABG 05/27/24 00:26 Specimen Type IGNACIO Sample Site Not entered O2 % 8.0 VBG pH 7.28 L VBG pO2 30 VBG HCO3 32 H VBG Total CO2 35 H VBG O2 Sat (Calc) 46 L VBG Base Excess 6 H POC Mix VBG pCO2 Pt Tmp 69.3 H O2 Delivery Device Cannula Radiography Diagnostic Testing: Clinical Impression(s) from Imaging Studies Chest CTA 05/27/24 23:21 IMPRESSION: The study is positive for multifocal nonocclusive pulmonary embolism seen at the right lower lobe basal segment division for example axial 132 through 117 and within the segmental right middle lobe axial 135. Motion artifact significantly limits the distal segmental and subsegmental evaluation. No large central or hilar saddle embolism. No CT evidence of right heart strain. Bilateral mosaic patchy ground-glass opacities with an upper zone predominance may be inflammatory/infectious with pulmonary edema not entirely excluded, clinically correlate. Small left pleural effusion. Results of the study communicated verbally by phone by myself to Dr. Smith at 1:05 a.m. One or more dose reduction techniques were used (e.g., Automated exposure control, adjustment of the mA and/or kV according to patient size, use of iterative reconstruction technique). Reading Location: [facility] Critical Care Time Critical Care Time: Yes Critical care time (excluding procedures): 30-74 minutes, Discussing w/Patient &/or Family/[employer], Discussing w/Consultants, Arranging Admission or Transfer, Performing Direct Patient Care at Bedside and - (35 minutes) Discharge Plan Dx/Rx/DC Orders Clinical Impression: Pulmonary embolism on right, Lymphedema, Acute and chronic respiratory failure with hypercapnia, Hypoxia, EITAN (acute kidney injury), Hyperglycemia due to diabetes mellitus, Hyperkalemia Disposition Disposition: Acute Care Hospital [facility] Discharge Date/Time: 05/27/24 02:05
[2024-05-27] VITALS (37 sets, daily range): BP systolic 102–165; BP diastolic 46–92; PULSE 71–88; RESP 15–26; TEMP 36.3–36.9; O2SAT 85–98; BMI 61.7
[2024-05-27 00:09] LABS: Partial Thromboplast Time 27.8 Seconds (24.1-36.2); Prothrombin Time (Protime)PT. 13.7 SECONDS (11.7-14.9)
[2024-05-27 00:14] LABS: Pro- Brain NATRIURETIC PEPTIDE 728 pg/mL (<=900)
[2024-05-27 00:21] LABS: Anion Gap 9 (5-15); BUN 58 mg/dL (4-19); BUN/Creat Ratio 31.9 RATIO (10-20); Carbon Dioxide 27.6 mmol/L (22.0-29.0); Chloride 93 mmol/L (96-108); Creatinine, Serum 1.82 mg/dL (0.70-1.20); EST Glomerular Filtration Rate 42 (>60); Glucose 498 mg/dL (70-99); Sodium Level 130 mmol/L (133-145)
[2024-05-27 00:26] LABS: Absolute Lymphocyte Count 0.72 X10^3/uL (0.83-4.51); Absolute Neutrophil Count 5.6 X10^3/uL (2.0-7.7); Basophil# 0.04 X10^3/uL; Basophil% 0.6 % (0-1); Eosinophil# 0.01 X10^3/uL; Eosinophils% 0.1 % (0-5); Hematocrit 34.5 % (40-54); Hemoglobin 10.7 g/dL (13.0-16.5); Lymphocyte # 0.72 X10^3/ul (0.83-4.51); Lymphocyte % 10.8 % (19-41); Mean Corpuscular Hgb 27.8 pg (27.0-32.0); Mean Corpuscular Volume 89.6 fL (80-94); Mean Platelet Vol. 9.7 fl (6.2-12.0); Monocyte# 0.18 X10^3/uL; Monocyte% 2.7 % (0-10); NRBC Flagged by Analyzer 0.3 % (0-5); Neutrophil # 5.62 X10^3/uL (2.7-7.7); Neutrophil % 84.3 % (47-70); Platelet Count 325 K/mm3 (150-450); RBC Distribution Width CV 15.5 % (11.6-14.6); RBC Distribution Width SD 50.4 fl (35.1-43.9); Red Blood Count 3.85 M/mm3 (4.6-6.2); White Blood Count 6.7 K/mm3 (4.4-11.0)
[2024-05-27 00:29] LABS: Blood Gas Specimen Type VEN; O2 Delivery Device Cannula; SITE Not entered; VBG BASE EXCESS 6 mmol/L (-1.0-3.5); VBG Bicarbonate 32 mmol/L (22-26); VBG PO2 30 mmHg (25-40); VBG SO2 46 % (50-70); VBG TCO2 35 mmol/L (23-33); VBG pCO2 69.3 mmHg (41-51); VBG pH 7.28 (7.32-7.42)
[2024-05-27 00:42] LABS: Potassium 6.2 mmol/L (3.3-5.1)
[2024-05-27] MEDS: 0.9% Normal Saline (500mL Bag) 500 ML 999 ML IV (00:46)
[2024-05-27] MEDS: Insulin Lispro 100 UNIT/ML INSULN.PEN 20 UNIT SC (00:46)
[2024-05-27 01:12] LABS: Potassium 5.6 mmol/L (3.3-5.1)
--- NOTE | 2024-05-27 01:12 | HP.PCM.HOS_ITS ---
[facility] - General General Date of Admission: 05/27/24 Date of Service: 05/27/24 Chief Complaint: SOB. HPI Narrative BAILEY THOMAS, is a 58 M with a past medical history of essential hypertension; on carvedilol, losartan and bumetanide, hyperlipidemia; with intolerance to statins, morbid obesity; with BMI of 50.8 this admission, MARYLU; noncompliant with CPAP, DM-2; of unknown control on liraglutide, insulin glargine 30U sq BID plus insulin lispro 10U sq TID and SSI, history asthma/COPD; without previous tobacco abuse, chronic hypoxic respiratory failure on 3L NC continuous, history of CHF; with preserved LVEF ~60% and no evidence of diastolic dysfunction (11/2023), chronic LE lymphedema, PVD; with history of non-pressure ulcers of both LE's, CKD; stage III, chronic normocytic anemia, GERD; on omeprazole, OA and history of recent admission here from March 10, 2024 to March 19, 2024 for treatment of AE COPD due to a combination of parainfluenza infection and MSSA pneumonia complicated by clinical evidence of dvjpo-gj-uwlafme hypoxic and hypercapnic respiratory failure compounded by EITAN; in the setting of CKD; stage IIIa and hypophosphatemia causing acute toxic/metabolic encephalopathy requiring ICU admission and pulmonary / critical-care consultation with patient ultimately discharged to [facility] who then re-presented for a more recent admission from April 24, 2024 to April 27, 2024 for treatment of bilateral COVID-19 with suspected bacterial superinfection plus bilateral lower extremity cellulitis complicated by AE COPD; with hqwxk-kg-piouckn hypoxic and hypercapnic respiratory failure compounded by EITAN; in the setting of CKD; stage IIIa with hyperkalemia of 5.9 mmol/L present on admission who now re-presents once again to [facility] ER after the staff at the [facility] (where he has resided since late February 2024) noted patient complaining of shortness of breath. Mr. Thomas reports his symptoms began approximately 1 week prior to admission with dyspnea on exertion that has worsened since that time. He underwent outpatient CXR that was negative for acute pathologic changes. He was also started on prednisone on May 27, 2023 though he denies wheezing. EMS was eventually activated and brought patient in on 15 L NRB. He denies currently being on anticoagulants, history of VTE or similar previous episodes. He states he has been getting up routinely doing rehabilitation with BMI notably dropping more than 10 units since his last admission. He additionally denies associated fever, chills, sweats, nausea, vomiting, diarrhea, constipation, abdominal pain, chest pain, chest tightness or headache. In the ER he underwent CTA of the chest with IV contrast which revealed study positive for multifocal nonocclusive Pulmonary Embolism seen at the Right lower lobe basilar segment and within the Right segmental Right middle lobe with no large central or hilar saddle embolism and NO evidence of Right heart strain in addition to bilateral mosaic patchy ground-glass opacities within upper zone predominance suspected to be inflammatory/infectious with pulmonary edema not entirely excluded in addition to small Left pleural effusion complicated by clinical evidence of Acute Hypoxic Respiratory Failure compounded by laboratory evidence of acute respiratory acidosis with pH 7.28 on VBG present on admission in addition to EITAN; with elevated serum creatinine of 1.82 mg/dL and BUN of 58 mg/dL (up from his baseline of 1.1 mg/dL and 36 mg/dL from April 27, 2024) with associated Hyperkalemia of 5.6 mmol/L present on admission and Hyperglycemia of 498 mg/dL present on admission; suspected to be due to Adverse Drug Reaction to recent steroid administration with oral prednisone. He was then admitted to the ICU for ongoing care for stay that is expected to extend beyond 2 midnights. [facility] Medical History Chronic obstructive pulmonary disease with acute respiratory distress Parainfluenza infection MSSA (methicillin susceptible Staphylococcus aureus) pneumonia Morbid obesity CKD (chronic kidney disease), stage III MARYLU (obstructive sleep apnea) HLD (hyperlipidemia) Insulin dependent diabetes mellitus Chronic respiratory failure with hypoxia and hypercapnia (HFpEF) heart failure with preserved ejection fraction Non-smoker Asthma HTN (hypertension) COPD (chronic obstructive pulmonary disease) Non-compliance Lymphedema Ulcer of left lower extremity with fat layer exposed Ulcer of right lower extremity with fat layer exposed Home Medications ?Medication ?Instructions ?Recorded ?Last Taken ?Type omeprazole magnesium 20 mg 20 mg PO DAILY stomach 10/1312/13/23 History tablet,delayed release portable nebulizer #1 ea 12/31/20 Unknown Rx ipratropium 0.5 mg-albuterol 3 mg 3 ml inhalation Q4H PRN shortness 01/06/21 12/13/23 Rx (2.5 mg base)/3 mL nebulization of breath or wheezing #180 mL soln liraglutide 0.6 mg/0.1 mL (18 mg/3 1.8 mg subcut DAILY diabetes 06/29/21 12/13/23 History mL) subcutaneous pen injector (Victoza 3-Benja) carvedilol 25 mg tablet 25 mg PO BID heart 12/14/23 12/13/23 History cetirizine 10 mg tablet (24Hour 10 mg PO DAILY PRN all ergy symptoms 12/14/23 12/14/23 History Allergy) gentamicin 0.1 % topical ointment 1 applic topical ALEJANDRINA LY PRN skin 12/14/23 12/13/23 History irritation hydrocortisone 2.5 % topical cream 1 applic topical DA YASIR PRN skin 12/14/23 12/13/23 History irritation aluminum-mag hydroxide-simethicone 30 ml PO Q6H PRN SD N Gastric 03/19/24 Unknown Rx 400 mg-400 mg-40 mg/5 mL oral susp Burning #0 mL (Mag-Al Plus Extra Strength) bumetanide 2 mg tablet 2 mg PO DAILY #0 tabs Unknown Rx insulin lispro 100 unit/mL 10 unit (0.1 mL) subcut TID CM #0 mL 03/19/24 Unknown Rx subcutaneous pen (Humalog KwikPen (U-100) Insulin) insulin lispro 100 unit/mL See Protocol subcut ACHS #0 mL 03/19/24 Unknown Rx subcutaneous pen (Humalog KwikPen (U-100) Insulin) ipratropium 0.5 mg-albuterol 3 mg 3 ml inhalation Q4HW A.RT 2 days #0 03/19/24 Unknown Rx (2.5 mg base)/3 mL nebulization mL soln isosorbide mononitrate 60 mg 60 mg PO DAILY #0 tabs Unknown Rx tablet,extended release 24 hr losartan 50 mg tablet 50 mg PO DAILY #0 tabs 03/19 Unknown Rx albuterol sulfate 2.5 mg/3 mL 2.5 mg inhalation Q4H SD N Dyspnea, 05/26/24 Unknown History (0.083 %) solution for nebulization wheezing guaifenesin 100 mg/5 mL oral liquid 100 mg PO Q4H PRN PRN Cough 05/26/24 Unknown History insulin glargine-yfgn 100 unit/mL 50 unit subcut BID 0 05/26/24 Unknown History (3 mL) subcutaneous pen prednisone 20 mg tablet 40 mg PO DAILY 05/26/24 Unkn own History sennosides 8.6 mg-docusate sodium 2 tab PO BID PRN PRN Constipation 05/26/24 Unknown History 50 mg tablet (Stimulant Laxative Plus) Allergy/AdvReac Type Severity Reaction Status Date / Time amlodipine (From [facility]) Allergy Other Verified 05/26/24 23:08 apraclonidine Allergy Other Verified 05/26/24 23:08 diltiazem Allergy Unknown Verified 05/26/24 23:08 doxycycline Allergy Other Verified 05/26/24 23:08 enalapril Allergy Other Verified 05/26/24 23:08 glimepiride Allergy Other Verified 05/26/24 23:08 glipizide (From Glucotrol) Allergy Other Verified 05/26/24 23:08 hydralazine Allergy Other Verified 05/26/24 23:08 ibuprofen Allergy Other Verified 05/26/24 23:08 Influenza Virus Vaccines Allergy Unknown Verified 05/26/24 23:08 latex Allergy Other Verified 05/26/24 23:08 lisinopril Allergy Other Verified 05/26/24 23:08 metoprolol Allergy Other Verified 05/26/24 23:08 montelukast Allergy Other Verified 05/26/24 23:08 Penicillins Allergy Other Verified 05/26/24 23:08 pravastatin Allergy Other Verified 05/26/24 23:08 prednisone Allergy Other Verified 05/26/24 23:08 propranolol Allergy Unknown Verified 05/26/24 23:08 simvastatin (From Zocor) Allergy Other Verified 05/26/24 23:08 sulfamethoxazole (From Allergy Other Verified 05/26/24 23:08 Bactrim) trimethoprim (From Bactrim) Allergy Other Verified 05/26/24 23:08 Family History Father Diabetes Hyperlipemia Heart disease Mother CHF (congestive heart failure) Heart disease CVA (cerebral vascular accident) Surgical History Hx [place] JORDAN Social History housing: house current occupational status: unemployed and disabled Smoking Status: Never smoker alcohol intake: never substance use type: does not use ROS ROS Narrative Review of Systems: Constitutional: Patient denies fever or chills. Eyes: Patient denies changes in vision or discharge from eyes. ENT: Patient denies runny nose, sore throat or ear pain. Resp: Patient admits to dyspnea on exertion but he denies cough. CV: Patient admits to chronic lower extremity lymphedema and orthopnea but he denies chest pain, palpitations or heart racing. GI: Patient denies abdominal pain, nausea, vomiting, diarrhea or constipation. : Patient denies dysuria, hematuria or urinary frequency. MSK: Patient denies arthralgias or myalgias. Skin: Patient denies rash, abscess, wounds or jaundice. Psych: Patient denies symptoms of uncontrolled depression or anxiety. Neuro: Patient denies headache, paresthesias or focal neurologic weakness. Allergy: Patient denies lip swelling, tongue swelling or urticaria. Hematology: Patient denies easy bleeding or easy bruisability. Endocrinology: Patient admits to hyperglycemia since being recently started on oral steroids with polyuria but he denies polydipsia or polyphagia. 14 point ROS otherwise negative except for positives noted above in HPI. Vital Signs Vital Signs Vital Signs: 05/26/24 23:09 05/26/24 23:09 05/26/24 23:13 Temperature 97.2 F L 97.7 F L Temperature Source Temporal Temporal Pulse Rate 87 86 Respiratory Rate 20 H 21 H Respiratory Effort Short of Breath Respiratory Depth Shallow Respiratory Pattern Tachypnea Blood Pressure 160/58 H Blood Pressure Mean 92 Pulse Ox 87 Oxygen Delivery Method Non-Rebreather Nasal Cannula Oxygen Flow Rate (L/min) 15 3 05/26/24 23:21 05/27/24 00:13 Temperature 97.9 F Temperature Source Temporal Pulse Rate 84 Respiratory Rate 25 H Respiratory Effort Respiratory Depth Respiratory Pattern Blood Pressure 157/75 H Blood Pressure Mean 102 Pulse Ox 93 91 Oxygen Delivery Method High Flow High Flow Oxygen Flow Rate (L/min) 10 8 Weight Weight: 287 lb 0.67 oz Body Mass Index (BMI) 50.8 Physical Exam Const alert and oriented x3 Constitutional Narrative: Patient is morbidly obese with mildly labored respirations and chronically ill appearance beyond his stated age. General Appearance: cooperative HEENT normocephalic, head/scalp atraumatic, hearing grossly normal bilaterally and moist oral mucous membranes Eyes PERRL, EOMs intact bilaterally and conjunctivae normal Neck no lymphadenopathy and supple Resp normal respiratory effort, no retractions, no use of accessory muscles and clear to auscultation bilaterally Cardio regular rate and regular rhythm GI normal to inspection, nondistended, normoactive bowel sounds, soft to palpation, non-tender and non-distended GI Narrative: Morbidly obese. Extremity full ROM Extremity Narrative: Patient has evidence of chronic lower extremity lymphedema with Wallace wraps present bilaterally. Negative tenderness to palpation noted. Skin Skin Narrative: Patient has evidence of rash, abscess, wounds or jaundice. Neuro oriented x3, CN's II-XII intact bilaterally, moves all extremities and no focal motor deficits Sensorium / Orientation: awake, alert, oriented to person, oriented to place and oriented to time Speech: speech normal Psych affect normal Results Medical Records Data Attestation: I reviewed the patient's medical records Lab / Micro Data Attestation: I reviewed the patient's lab results. 05/26/24 23:48 05/27/24 00:43 Labs: Laboratory Results - last 24 hr 05/26/24 23:48: WBC 6.7, RBC 3.85 L, Hgb 10.7 L, Hct 34.5 L, MCV 89.6, MCH 27.8, MCHC 31.0 L, RDW Std Deviation 50.4 H, RDW Coeff of Jung 15.5 H, Plt Count 325, MPV 9.7, Immature Gran % (Auto) 1.500 H, Neut % (Auto) 84.3 H, Lymph % (Auto) 10.8 L, [place] % (Auto) 2.7, Eos % (Auto) 0.1, Baso % (Auto) 0.6, Absolute Neuts (auto) 5.6, Absolute Lymphs (auto) 0.72 L, Nucleated RBC % 0.3, PT 13.7, INR 1.0, APTT 27.8, Sodium 130 L, Potassium 6.2 H*, Chloride Direct 93 L, Carbon Dioxide 27.6, Anion Gap 9, BUN 58 H, Creatinine 1.82 H, Estim Creat Clear Calc 53.30, Est GFR (MDRD) Non-Af 42 L, BUN/Creatinine Ratio 31.9 H, Glucose 498 H*, Calcium 9.0, NT pro BNP II 728 05/27/24 00:43: Potassium 5.6 H ABG Data ABG results: ABG 05/27/24 00:26 Specimen Type IGNACIO Sample Site Not entered O2 % 8.0 VBG pH 7.28 L VBG pO2 30 VBG HCO3 32 H VBG Total CO2 35 H VBG O2 Sat (Calc) 46 L VBG Base Excess 6 H POC Mix VBG pCO2 Pt Tmp 69.3 H O2 Delivery Device Cannula Imaging Radiology Impression Chest CTA 05/27/24 23:21 IMPRESSION: The study is positive for multifocal nonocclusive pulmonary embolism seen at the right lower lobe basal segment division for example axial 132 through 117 and within the segmental right middle lobe axial 135. Motion artifact significantly limits the distal segmental and subsegmental evaluation. No large central or hilar saddle embolism. No CT evidence of right heart strain. Bilateral mosaic patchy ground-glass opacities with an upper zone predominance may be inflammatory/infectious with pulmonary edema not entirely excluded, clinically correlate. Small left pleural effusion. Results of the study communicated verbally by phone by myself to Dr. Smith at 1:05 a.m. One or more dose reduction techniques were used (e.g., Automated exposure control, adjustment of the mA and/or kV according to patient size, use of iterative reconstruction technique). Reading Location: [facility] Assessment & Plan Assessment/Plan (1) Pulmonary embolism on right: (2) HCAP (healthcare-associated pneumonia): (3) Acute on chronic hypoxic respiratory failure: (4) EITAN (acute kidney injury): (5) CKD (chronic kidney disease), stage III: QUALIFIERS: Chronic kidney disease stage 3 subtype: unspecified whether 3a or 3b Qualified Code(s): N18.30 - Chronic kidney disease, stage 3 unspecified (6) Hyperkalemia: (7) Acute hyperkalemia: (8) Adverse drug reaction: QUALIFIERS: Encounter type: initial encounter Qualified Code(s): T50.905A - Adverse effect of unspecified drugs, medicaments and biological substances, initial encounter (9) Uncontrolled type 2 diabetes mellitus with hyperglycemia: (10) Morbid obesity with BMI of 50.0-59.9, adult: PLAN: Plan 1. CTA of the chest with IV contrast which revealed study positive for multifocal nonocclusive Pulmonary Embolism seen at the Right lower lobe basilar segment and within the Right segmental Right middle lobe with no large central or hilar saddle embolism and NO evidence of Right heart strain in addition to bilateral mosaic patchy ground-glass opacities within upper zone predominance suspected to be inflammatory/infectious with pulmonary edema not entirely excluded in addition to small Left pleural effusion in the setting of known history asthma/COPD; without previous tobacco abuse with chronic hypoxic respiratory failure on 3L NC continuous - Admit to ICU. Continue IV heparin begun in the ER and titrate per VTE protocol. Also start Merrem IV with CT evidence of (HCAP) Pneumonia on CT and normal range NT pro-BNP II of 728 pg/mL present on admission. Check urinary antigens to Streptococcus pneumonia and Legionella. Give vitamin D3, vitamin C and zinc with acidophilus probiotic to help boost immunity and hopefully speedy recovery. Start guaifenesin 600 mg p.o. twice daily. Give acetaminophen as needed for [id number]-[id number] (level 1- 5/10) pain or fever. Give morphine IV as needed for severe (level 6-10/10) pain. 2. Rhcqc-kr-Vrdazqb Hypoxic Respiratory Failure with Respiratory Acidosis due to #1 - Wean high-flow oxygen as tolerated. 3. EITAN; in the setting of CKD; stage IIIa with elevated serum creatinine of 1.82 mg/dL and BUN of 58 mg/dL (up from his baseline of 1.1 mg/dL and 36 mg/dL from April 27, 2024) suspected to be primarily due to Adverse Drug Reaction to combination of losartan and bumetanide complicating #1 & #2 - Give NS IVF @ 150 cc/hr x 2L and then serialize renal indices to follow trend. We will avoid potentially nephrotoxic agents. 4. Hyperkalemia of 5.6 mmol/L present on admission likely arising from #3 - Give Kayexalate 15g PO once and give 20U insulin lispro plus NS IVF to replace volume and then recheck level in AM to ensure improvement. 5. Hyperglycemia of 498 mg/dL present on admission; suspected to be due to Adverse Drug Reaction to recent steroid administration with oral prednisone compounding #1 - #4 - Decrease steroid dose to prednisone 10 mg daily with dyspnea due to PE outlined in #1. 6. DM-2; of unknown control on liraglutide, insulin glargine 50U sq BID plus insulin lispro 10U sq TID and SSI adding to the medical complexity of #1 -#5 - ADA/cardiac diet. Continue current regimen in light of #5. FSBS q. AC/HS plus SSI. Check HgbA1c to objectively evaluate quality of diabetic control. 7. Morbid Obesity; with BMI of 50.8 this admission and MARYLU; noncompliant with CPAP adding to the burden of disease outlined from #1 - #6 - Weight loss will be recommended. Patient on high-flow oxygen at this time due to #1. 8. Very recent admission from April 24, 2024 to April 27, 2024 for treatment of bilateral COVID-19 with suspected bacterial superinfection plus bilateral lower extremity cellulitis complicated by AE COPD; with fcesw-cr-tlnxzdi hypoxic and hypercapnic respiratory failure compounded by EITAN; in the setting of CKD; stage IIIa with hyperkalemia of 5.9 mmol/L present on admission - Noted. 9. Less recent admission here from March 10, 2024 to March 19, 2024 for treatment of AE COPD due to a combination of parainfluenza infection and MSSA pneumonia complicated by clinical evidence of [id number]-pqxuowd hypoxic and hypercapnic respiratory failure compounded by EITAN; in the setting of CKD; stage IIIa and hypophosphatemia causing acute toxic/metabolic encephalopathy requiring ICU admission and pulmonary / critical-care consultation with patient ultimately discharged to [facility] - Noted. 10. Essential Hypertension; on carvedilol, losartan and bumetanide - Continue carvedilol but hold losartan and bumetanide as outline in #3. 11. Hyperlipidemia; with intolerance to statins - Resume statin as previous. 12. History of CHF; with preserved LVEF ~60% and no evidence of diastolic dysfunction (11/2023) - Noted. 13. Chronic LE lymphedema - Stable with WALLACE-wraps on both LE's on admission. 14. PVD; with history of non-pressure ulcers of both LE's - Noted. 15. Chronic normocytic anemia - Stable with hemoglobin of 10.7 g/dL and MCV of 89.6 fL present on admission. 16. GERD; on omeprazole - Continue PPI. 17. OA - Give acetaminophen prn as per pain scale noted above in #1. 18. DVT prophylaxis - Patient on IV heparin for #1. Total time: Approximately (but not less than) 75 minutes. Charges/Coding Visit Charges Inpatient E&M: 52334 Init Hosp L3
[2024-05-27] MEDS: Heparin Injection (Vial) 5,000 UNIT/ML VIAL 4000 UNIT IV (01:15)
[2024-05-27] MEDS: HEPARIN/D5w 25,000 UNITS 25,000 UNITS/250 ML IV.SOLN. 10 UNITS CONT INF (01:19)
[2024-05-27 01:50] LABS: Mucous, Urine 0 SEEN /hpf (<or=2+); White Blood Cells 0 SEEN /hpf (0-5)
[2024-05-27 01:55] LABS: Color, Urine Yellow (Yellow); Glucose, Dipstick 1000 mg/dl (Normal); Ketone-Dipstick Negative (Negative); Leukocyte Esterase-Dipstick Negative /ul (Negative); Nitrite-Dipstick Negative (Negative); Occult Blood-Urine 25 /ul (Negative); Protein-Dipstick 15 mg/dl (Negative); Urine Bilirubin Dipstick Negative (Negative); Urine Clarity Clear (Clear); Urine Urobilinogen Normal (Normal)
[2024-05-27] MEDS: Meropenem 1 GM in 0.9% Normal Saline (100mL MB+) 100 ML IV ×3 (01:56→20:46)
[2024-05-27 02:04] LABS: Bedside Glucose 450 mg/dL (74-106)
[2024-05-27 02:05] LABS: Bacteria 1+ /hpf (None Seen); Red Blood Cells-Urine 0-5 SEEN /hpf (0-5); Squamous Epithelial Cells - UA 0-5 SEEN /hpf (0-5)
[2024-05-27 02:24] LABS: Magnesium 1.7 mg/dL (1.5-2.2)
[2024-05-27] MEDS: Sodium Polystyrene Sulfonate 15 GM/60 ML UDC PO (03:03)
[2024-05-27] MEDS: 0.9% Normal Saline (1000mL) 1,000 ML 150 ML IV ×2 (03:03→09:48)
[2024-05-27 03:17] LABS: Absolute Lymphocyte Count 0.76 X10^3/uL (0.83-4.51); Absolute Neutrophil Count 5.1 X10^3/uL (2.0-7.7); Basophil# 0.01 X10^3/uL; Basophil% 0.2 % (0-1); Eosinophil# 0.01 X10^3/uL; Eosinophils% 0.2 % (0-5); Hematocrit 30.1 % (40-54); Hemoglobin 9.4 g/dL (13.0-16.5); Lymphocyte # 0.76 X10^3/ul (0.83-4.51); Lymphocyte % 12.3 % (19-41); Mean Corp Hgb Conc 31.2 g/dL (32-36); Mean Corpuscular Hgb 27.8 pg (27.0-32.0); Mean Corpuscular Volume 89.1 fL (80-94); Mean Platelet Vol. 9.6 fl (6.2-12.0); Monocyte# 0.23 X10^3/uL; Monocyte% 3.7 % (0-10); NRBC Flagged by Analyzer 0.3 % (0-5); Neutrophil # 5.06 X10^3/uL (2.7-7.7); Neutrophil % 82.1 % (47-70); Platelet Count 295 K/mm3 (150-450); RBC Distribution Width CV 15.5 % (11.6-14.6); RBC Distribution Width SD 50.4 fl (35.1-43.9); Red Blood Count 3.38 M/mm3 (4.6-6.2); White Blood Count 6.2 K/mm3 (4.4-11.0)
[2024-05-27 03:21] LABS: Troponin T High Sensitivity 31 ng/L (<=22)
[2024-05-27 03:45] LABS: ALB/GLOB Ratio 0.8 RATIO (0.9-2.4); AST(SGOT) 28 U/L (<=37); Alanine Aminotransfer ALT/SGPT 9 U/L (<=46); Albumin, Serum 2.9 g/dL (3.5-5.0); Alkaline Phosphatase 143 U/L (40-129); Anion Gap 10 (5-15); BUN 55 mg/dL (4-19); BUN/Creat Ratio 33.1 RATIO (10-20); Calcium 8.6 mg/dL (7.6-11.0); Carbon Dioxide 25.6 mmol/L (22.0-29.0); Chloride 97 mmol/L (96-108); Creatinine, Serum 1.66 mg/dL (0.70-1.20); EST Glomerular Filtration Rate 47 (>60); Estimated Creatinine Clearance 66.02 ml/min (50-250); Globulin 3.5 g/dL (2.2-4.2); Glucose 434 mg/dL (70-99); Phosphorus 2.9 mg/dL (2.7-4.5); Potassium 5.4 mmol/L (3.3-5.1); Protein, Total 6.4 g/dL (5.9-8.4); Sodium Level 132 mmol/L (133-145); Total Bilirubin 0.27 mg/dL (0.00-1.30)
[2024-05-27 03:53] LABS: Lactic Acid 1.6 mmol/L (0.0-2.0)
[2024-05-27 03:53] LABS: Hemoglobin A1c 8.8 % (<=5.6)
[2024-05-27 05:02] LABS: TROPONIN VARIANCE 2 HR 2; Troponin T High Sens 2 HR 28 ng/L (<=22)
[2024-05-27 05:02] LABS: Allen Test Positive; Base Excess 6 mmol/L (-2 to +2); Blood Gas Specimen Type ART; Mode Not entered; O2 Delivery Device Cannula; PO2 51 mmHG (75-100); SITE R Radial; SO2 81 % (95-99); Total Carbon Dioxide 34 mmol/L; pCO2 62.6 mmHg (35-45); pH 7.32 (7.35-7.45)
[2024-05-27] MEDS: Ipratropium/Albuterol Sulfate 3 ML AMPUL.NEB INHALATION ×4 (07:29→19:23)
[2024-05-27] MEDS: Carvedilol 25 MG Tablet PO ×2 (08:07→16:24)
[2024-05-27] MEDS: predniSONE 10 MG Tablet PO (08:08)
[2024-05-27] MEDS: Ascorbic Acid 500 MG Tablet 1000 MG PO ×2 (08:08→16:22)
[2024-05-27] MEDS: Insulin Glargine-YFGN 100 UNIT/ML Pen 50 UNIT SC ×2 (08:09→20:46)
[2024-05-27] MEDS: Insulin Lispro 100 UNIT/ML INSULN.PEN 10 UNIT SC ×3 (08:10→16:22)
[2024-05-27] MEDS: Insulin Lispro 100 UNIT/ML INSULN.PEN SC ×4 (08:11→20:45)
[2024-05-27 08:28] LABS: Partial Thromboplast Time 41.8 Seconds (24.1-36.2)
[2024-05-27 08:36] LABS: Bedside Glucose 316 mg/dL (74-106)
--- NOTE | 2024-05-27 09:52 | NURSING ---
Patient refused the ordered b/l lower venous dopplers. This RN reminded the patient why they were ordered and the importance of checking for blood clots in the legs. The patient stated I know, but they just wrapped my legs and the medicine needs time to work. This RN responded that while that is important, it is more important to check for blood clots. The patient continued to refuse and then stated then they should have done that yesterday. This RN told the patient if he changes his mind to notify this RN.
[2024-05-27] MEDS: Pantoprazole Sodium 20 MG Tablet PO (10:31)
[2024-05-27] MEDS: guaiFENesin 600 MG Tablet PO ×2 (10:31→20:45)
[2024-05-27] MEDS: Cholecalciferol (Vit D3) 125 MCG CAPSULE (5,000 UNITS) PO (10:31)
[2024-05-27] MEDS: Lactobacillis Acidophilus 1 CAP PO ×4 (10:31→20:45)
[2024-05-27] MEDS: Zinc Sulfate 50 mg zinc (220 mg) ORAL capsule PO (10:31)
[2024-05-27] MEDS: Isosorbide Mononitrate 60 MG Tablet PO (10:31)
--- NOTE | 2024-05-27 10:31 | CASEMGMT ---
Addendum entered by Ladan Grove 05/27/24 10:42: Social Work Pt has services through [facility] Waiver Program. Kristy Zhao is CM. ([phone], ). SW updated coverage line of pt's admission. SW to fax dc information to Kristy at appropriate time. ERNIE Carreon Original Note: Social Work SW met with the pt and introduced self and role of SW. SDOH assessment completed. Pt currently resides at [facility]. Pt states he plans to return there upon discharge from [facility]. DC senior it assistant to send updates to [place] and inquired about need for precert prior to return. Plan: Return to [facility] ERNIE Carreon
--- NOTE | 2024-05-27 10:38 | CASEMGMT ---
Addendum entered by Aida Matute 05/27/24 11:15: Pt is a bedhold and can return when medically ready without precert. Aida Matute DC Planning Asst. Original Note: Discharge Planning Updates sent to [facility] asking if precert is needed. Aida Matute DC Planning Asst.
[2024-05-27 11:28] LABS: Bedside Glucose 397 mg/dL (74-106)
[2024-05-27 15:44] LABS: Bedside Glucose 374 mg/dL (74-106)
[2024-05-27 15:44] LABS: Partial Thromboplast Time 40.2 Seconds (24.1-36.2)
[2024-05-27] MEDS: Heparin Injection (Vial) 5,000 UNIT/ML VIAL IV (15:53)
[2024-05-27] MEDS: HEPARIN/D5w 25,000 UNITS 25,000 UNITS/250 ML IV.SOLN. 13 UNITS CONT INF (20:47)
[2024-05-27 21:48] LABS: Bedside Glucose 323 mg/dL (74-106)
[2024-05-27 22:36] LABS: Partial Thromboplast Time 46.6 Seconds (24.1-36.2)
--- NOTE | 2024-05-27 23:21 | CT_ITS ---
PROCEDURE: CTA CHEST W/WO CONTRAST REASON FOR EXAM: Dyspnea, hypoxia TECHNIQUE: CTA imaging of the chest with intravenous contrast. 3D reconstructions. CONTRAST: 97 cc Isovue 370 COMPARISON: 03/11/2024 FINDINGS: The study is positive for multifocal nonocclusive pulmonary embolism seen at the right lower lobe basal segment division for example axial 132 through 117 and within the segmental right middle lobe axial 135. Motion artifact significantly limits the distal segmental and subsegmental evaluation. No large central or hilar saddle embolism. No CT evidence of right heart strain. Three-vessel coronary calcification appears greatest at the LAD. Small left pleural effusion. No pericardial effusion. Thoracic aorta appears within limits. Bilateral mosaic patchy ground-glass opacities with an upper zone predominance may be inflammatory/infectious with pulmonary edema not entirely excluded, clinically correlate. No focal consolidation. Bandlike areas of scarring or atelectasis upper lobes. Tiny calcified gallstone nondistended appearing gallbladder, incidental. CT/CTA Chest W/WO Contrast IMPRESSION: The study is positive for multifocal nonocclusive pulmonary embolism seen at th e right lower lobe basal segment division for example axial 132 through 117 and within the segmental right middle lobe axial 135. Motion artifact significantly limits the distal segmental and subsegmental evaluation. No large central or hilar saddle embolism. No CT evidence of right heart strain. Bilateral mosaic patchy ground-glass opacities with an upper zone predominance may be inflammatory/infectious with pulmonary edema not entirely excluded, clinically correlate. Small left pleural effusion. Results of the study communicated verbally by phone by myself to Dr. Smith at 1:05 a.m. One or more dose reduction techniques were used (e.g., Automated exposure contr ol, adjustment of the mA and/or kV according to patient size, use of iterative reconstruction technique). Reading Location: [id number]
[2024-05-28] VITALS (10 sets, daily range): BP systolic 119–146; BP diastolic 63–75; PULSE 68–77; RESP 18–24; TEMP 36.6–36.8; O2SAT 94–95
[2024-05-28] MEDS: Albuterol 2.5 MG/3 ML VIAL.NEB. INHALATION (04:35)
[2024-05-28] MEDS: Meropenem 1 GM in 0.9% Normal Saline (100mL MB+) 100 ML IV ×3 (04:38→22:40)
[2024-05-28 04:40] LABS: Absolute Lymphocyte Count 1.64 X10^3/uL (0.83-4.51); Absolute Neutrophil Count 5.4 X10^3/uL (2.0-7.7); Basophil# 0.07 X10^3/uL; Basophil% 0.8 % (0-1); Eosinophil# 0.21 X10^3/uL; Eosinophils% 2.5 % (0-5); Hematocrit 32.8 % (40-54); Hemoglobin 10.1 g/dL (13.0-16.5); Lymphocyte # 1.64 X10^3/ul (0.83-4.51); Lymphocyte % 19.7 % (19-41); Mean Corp Hgb Conc 30.8 g/dL (32-36); Mean Corpuscular Hgb 28.2 pg (27.0-32.0); Mean Corpuscular Volume 91.6 fL (80-94); Mean Platelet Vol. 9.5 fl (6.2-12.0); Monocyte# 0.93 X10^3/uL; Monocyte% 11.2 % (0-10); NRBC Flagged by Analyzer 0.5 % (0-5); Neutrophil # 5.37 X10^3/uL (2.7-7.7); Neutrophil % 64.4 % (47-70); Platelet Count 333 K/mm3 (150-450); RBC Distribution Width CV 15.8 % (11.6-14.6); RBC Distribution Width SD 53.1 fl (35.1-43.9); Red Blood Count 3.58 M/mm3 (4.6-6.2); White Blood Count 8.3 K/mm3 (4.4-11.0)
[2024-05-28 05:07] LABS: Partial Thromboplast Time 42.5 Seconds (24.1-36.2)
[2024-05-28 05:17] LABS: Anion Gap 8 (5-15); BUN 46 mg/dL (4-19); BUN/Creat Ratio 31.6 RATIO (10-20); Calcium 8.7 mg/dL (7.6-11.0); Carbon Dioxide 28.6 mmol/L (22.0-29.0); Chloride 99 mmol/L (96-108); Creatinine, Serum 1.44 mg/dL (0.70-1.20); EST Glomerular Filtration Rate 56 (>60); Estimated Creatinine Clearance 76.11 ml/min (50-250); Glucose 235 mg/dL (70-99); Potassium 4.6 mmol/L (3.3-5.1); Sodium Level 136 mmol/L (133-145)
[2024-05-28] MEDS: Ipratropium/Albuterol Sulfate 3 ML AMPUL.NEB INHALATION ×4 (07:02→19:12)
[2024-05-28] MEDS: Insulin Lispro 100 UNIT/ML INSULN.PEN 10 UNIT SC ×3 (08:30→16:21)
[2024-05-28] MEDS: Insulin Lispro 100 UNIT/ML INSULN.PEN SC ×4 (08:31→22:44)
[2024-05-28] MEDS: Carvedilol 25 MG Tablet PO ×2 (08:32→16:23)
[2024-05-28] MEDS: Cholecalciferol (Vit D3) 125 MCG CAPSULE (5,000 UNITS) PO (08:33)
[2024-05-28] MEDS: Isosorbide Mononitrate 60 MG Tablet PO (08:33)
[2024-05-28] MEDS: Zinc Sulfate 50 mg zinc (220 mg) ORAL capsule PO (08:33)
[2024-05-28] MEDS: guaiFENesin 600 MG Tablet PO (08:33)
[2024-05-28] MEDS: Lactobacillis Acidophilus 1 CAP PO ×4 (08:33→22:43)
[2024-05-28] MEDS: predniSONE 10 MG Tablet PO (08:34)
[2024-05-28] MEDS: Ascorbic Acid 500 MG Tablet 1000 MG PO ×2 (08:34→16:22)
[2024-05-28] MEDS: Pantoprazole Sodium 20 MG Tablet PO (08:34)
[2024-05-28] MEDS: Insulin Glargine-YFGN 100 UNIT/ML Pen 50 UNIT SC ×2 (08:35→22:43)
--- NOTE | 2024-05-28 08:50 | PCM.PN.HOSP ---
Subjective Subjective Still requiring 6 L nasal cannula, and he refused Dopplers yesterday Objective Data Objective Data Vital Signs: Vital Signs Temp Pulse Resp BP Pulse Ox O2 Del Method O2 Flow Rate 98.3 F 74 23 H 146/75 H 94 High Flow 6 05/28/24 04:00 05/28/24 04:36 05/28/24 04:36 05/28/24 04:00 05/28/24 04:00 05/28/24 04:00 05/28/24 04:00 Oxygen Flow Rate (L/min) 6 Oxygen Delivery Method High Flow Weight: 348 lb 12.34 oz Body Mass Index (BMI) 61.7 Intake & Output: Intake and Output for Last 24 Hours 05/27/24 05/28/24 05/29/24 03:59 03:59 03:59 Intake Total 620 / 620 2704.13 / 2704.13 215.9 / 215.9 Output Total 1200 / 1200 1900 / 1900 450 / 450 Balance -580 / -580 804.13 / 804.13 -234.1 / -234.1 Lab / Micro Data 05/28/24 04:25 05/28/24 04:25 Labs: Laboratory Results - last 24 hr 05/27/24 11:09: POC Glucose 397 H 05/27/24 15:11: APTT 40.2 H 05/27/24 15:25: POC Glucose 374 H 05/27/24 20:44: POC Glucose 323 H 05/27/24 22:15: APTT 46.6 H 05/28/24 04:25: WBC 8.3, RBC 3.58 L, Hgb 10.1 L, Hct 32.8 L, MCV 91.6, MCH 28.2, MCHC 30.8 L, RDW Std Deviation 53.1 H, RDW Coeff of Jung 15.8 H, Plt Count 333, MPV 9.5, Immature Gran % (Auto) 1.400 H, Neut % (Auto) 64.4, Lymph % (Auto) 19.7, [place] % (Auto) 11.2 H, Eos % (Auto) 2.5, Baso % (Auto) 0.8, Absolute Neuts (auto) 5.4, Absolute Lymphs (auto) 1.64, Nucleated RBC % 0.5, APTT 42.5 H, Sodium 136, Potassium 4.6, Chloride Direct 99, Carbon Dioxide 28.6, Anion Gap 8, BUN 46 H, Creatinine 1.44 H, Estim Creat Clear Calc 76.11, Est GFR (MDRD) Non-Af 56 L, BUN/Creatinine Ratio 31.6 H, Glucose 235 H, Calcium 8.7 Micro: Microbiology 05/27/24 04:45 Mucosa - Nasopharyngeal Respiratory Panel (PCR) - Final 05/27/24 01:46 Urine Catheter - Menjivar Legionella Antigen - Final 05/27/24 01:46 Urine Catheter - Menjivar Streptococcus pneumoniae Antigen (M - Final 05/26/24 23:26 Mucosa - Nose SARS-CoV-2, Influenza & RSV (PCR) - Final Physical Exam Narrative General: Alert, Oriented x3, Cooperative, No apparent distress HEENT: Atraumatic, PERRLA, EOMI, Normocephalic Oral: Moist Mucosa Neck: Supple, No JVD Lungs: Diminished, Normal air movement, No rhonchi, No wheeze, No rales Cardiovascular: Regular rate, Regular Rhythm, Normal S1, Normal S2, No murmurs Abdomen: Soft, Non Tender, Non-Distended, No Hepato-splenomegaly Extremities: Chronic lymphedema, Capillary Refill Less than 3 Seconds Skin: No rashes, No breakdown Musculoskeletal: No Tenderness to Palpation of Joints or Extremities Neurological: No focal neurological deficits, Motor Exam 5/5 strength throughout, Sensory exam intact to light touch and pain Psych/Mental Status: Normal Affect, Appropriate Assessment & Plan Assessment/Plan (1) Pulmonary embolism on right: (2) HCAP (healthcare-associated pneumonia): (3) Acute on chronic hypoxic respiratory failure: (4) EITAN (acute kidney injury): PLAN: Plan 1. Acute on chronic hypoxic respiratory failure secondary to right sided PE ? Continue with anticoagulation ? Wean oxygen as able, currently on 6 L nasal cannula ? Continue with antibiotics for pneumonia ? His baseline oxygen requirement is 3 L nasal cannula ? Sputum cultures pending 2. Essential HTN/HLD/chronic diastolic CHF/peripheral vascular disease ? Continue with blood pressure medications ? Will monitor make adjustments as necessary ? Echo with an EF of 60% in November 2023 3. DM2 with CKD 3/morbid obesity ? Never had EITAN ? Continue with insulin ? Accu-Cheks ACHS ? Will monitor make adjustments as necessary ? BMI of 61.8 4. GERD ? Stable Continue with PPI DVT: Eliquis Charges/Coding Visit Charges Inpatient E&M: 48162 Subs Hosp L2
--- NOTE | 2024-05-28 09:07 | WOUNDNOTE ---
was asked to see patient for redness to bilateral lower legs. pt apparently had refused for dressings to removed yesterday. pt is known to this nurse from previous admissions. removed the TRINITY wraps and dressings. there was a moderate amount of serous drainage noted on the old dressings. no open wounds noted just some areas of weeping. pt with chronic stasis dermatitis. lower legs are red with dry patchy skin noted. pt c/o nurses at the [facility], doctors, aides, etc. pt states he has been in the [facility] for a while and states he has not been able to return home because he is too weak and under a lot of stress. legs washed with soap and water. applied petroleum to the dry skin and placed ABD pads. wrapped with kerlix and TRINITY wraps. this nurse was not able to remove the dry skin. pt tolerated well. see skin photos. will monitor as needed.
--- NOTE | 2024-05-28 11:35 | WOUNDNOTE ---
skin photo: left lower leg
--- NOTE | 2024-05-28 11:35 | WOUNDNOTE ---
skin photo: right lower leg
[2024-05-28] MEDS: APIXABAN 5 MG TABLET 10 MG PO ×2 (11:41→22:43)
[2024-05-28 11:56] LABS: Bedside Glucose 182 mg/dL (74-106)
[2024-05-28 16:43] LABS: Bedside Glucose 202 mg/dL (74-106)
[2024-05-28 22:34] LABS: Bedside Glucose 268 mg/dL (74-106)
[2024-05-28] MEDS: 0.9% Saline Lock 10 ML Syringe IV (22:40)
[2024-05-29] VITALS (15 sets, daily range): BP systolic 117–164; BP diastolic 59–96; PULSE 18–74; RESP 16–24; TEMP 36.4–36.7; O2SAT 91–97
[2024-05-29] MEDS: Meropenem 1 GM in 0.9% Normal Saline (100mL MB+) 100 ML IV ×3 (05:05→21:13)
[2024-05-29] MEDS: Albuterol 2.5 MG/3 ML VIAL.NEB. INHALATION (05:40)
[2024-05-29 06:13] LABS: Absolute Lymphocyte Count 1.35 X10^3/uL (0.83-4.51); Absolute Neutrophil Count 5.2 X10^3/uL (2.0-7.7); Basophil# 0.07 X10^3/uL; Basophil% 0.9 % (0-1); Eosinophil# 0.15 X10^3/uL; Hemoglobin 10.2 g/dL (13.0-16.5); Lymphocyte # 1.35 X10^3/ul (0.83-4.51); Lymphocyte % 17.6 % (19-41); Mean Corp Hgb Conc 30.9 g/dL (32-36); Mean Corpuscular Hgb 28.2 pg (27.0-32.0); Mean Corpuscular Volume 91.2 fL (80-94); Mean Platelet Vol. 9.4 fl (6.2-12.0); Monocyte# 0.78 X10^3/uL; Monocyte% 10.2 % (0-10); NRBC Flagged by Analyzer 0.5 % (0-5); Neutrophil # 5.15 X10^3/uL (2.7-7.7); Neutrophil % 67.3 % (47-70); Platelet Count 307 K/mm3 (150-450); RBC Distribution Width CV 15.6 % (11.6-14.6); RBC Distribution Width SD 51.9 fl (35.1-43.9); Red Blood Count 3.62 M/mm3 (4.6-6.2); White Blood Count 7.7 K/mm3 (4.4-11.0)
[2024-05-29 06:37] LABS: Bedside Glucose 135 mg/dL (74-106)
[2024-05-29 06:44] LABS: Anion Gap 8 (5-15); BUN 44 mg/dL (4-19); BUN/Creat Ratio 34.2 RATIO (10-20); Calcium,Total 8.7 mg/dL (7.6-11.0); Carbon Dioxide 26.9 mmol/L (21.0-32.0); Chloride 101 mmol/L (98-108); Creatinine, Serum 1.29 mg/dL (0.70-1.20); EST Glomerular Filtration Rate 64 (>60); Estimated Creatinine Clearance 84.96 ml/min (50-250); Glucose 148 mg/dL (70-99); Potassium 4.9 mmol/L (3.3-5.1); Sodium Level 137 mmol/L (133-145)
[2024-05-29] MEDS: Ipratropium/Albuterol Sulfate 3 ML AMPUL.NEB INHALATION ×4 (07:21→20:10)
--- NOTE | 2024-05-29 08:30 | WOUNDNOTE ---
Pt sitting up in bed with legs elevated. removed the TRINITY wraps and dressings. less drainage noted today. no open wounds noted, just some areas of serous weeping. pt with chronic redness and dry skin. washed legs and feet with soap and water. pat dry. applied lotions and wrapped with ABD pads and kerlix. reapplied the TRINITY wraps. pt tolerated well. will monitor.
[2024-05-29 09:00] LABS: Bedside Glucose 125 mg/dL (74-106)
[2024-05-29] MEDS: APIXABAN 5 MG TABLET 10 MG PO ×2 (09:31→21:13)
[2024-05-29] MEDS: Ascorbic Acid 500 MG Tablet 1000 MG PO ×2 (09:31→17:05)
[2024-05-29] MEDS: Carvedilol 25 MG Tablet PO ×2 (09:31→17:05)
[2024-05-29] MEDS: predniSONE 10 MG Tablet PO (09:31)
[2024-05-29] MEDS: Zinc Sulfate 50 mg zinc (220 mg) ORAL capsule PO (09:32)
[2024-05-29] MEDS: Lactobacillis Acidophilus 1 CAP PO ×4 (09:32→21:13)
[2024-05-29] MEDS: Pantoprazole Sodium 20 MG Tablet PO (09:32)
[2024-05-29] MEDS: guaiFENesin 600 MG Tablet PO ×2 (09:32→21:13)
[2024-05-29] MEDS: Isosorbide Mononitrate 60 MG Tablet PO (09:32)
[2024-05-29] MEDS: Insulin Glargine-YFGN 100 UNIT/ML Pen 50 UNIT SC ×2 (09:33→22:12)
--- NOTE | 2024-05-29 11:41 | PN.HOSP_ITS ---
Reason for Visit Reason for Visit: Diagnoses Type 2 diabetes mellitus with hyperglycemia (05/27/24) Morbid (severe) obesity due to excess calories (05/27/24) Hyperkalemia (05/27/24) Other pulmonary embolism without acute cor pulmonale (05/27/24) Pneumonia, unspecified organism (05/27/24) Acute and chronic respiratory failure with hypoxia (05/27/24) Acute kidney failure, unspecified (05/27/24) Chronic kidney disease, stage 3 unspecified (05/27/24) Adverse effect of unspecified drugs, medicaments and biological substances, initial encounter (05/27/24) Body mass index [BMI] 50.0-59.9, adult (05/27/24) Subjective Subjective Patient is a 58-year-old gentleman with multiple comorbidities resident at an [facility] presented with shortness of breath diagnosed with acute pulmonary embolism Objective Data Objective Data Vital Signs: Vital Signs Temp Pulse Resp BP Pulse Ox O2 Del Method O2 Flow Rate 98.0 F 72 20 H 124/71 H 92 Nasal Cannula 7 05/29/24 09:28 05/29/24 09:28 05/29/24 09:28 05/29/24 09:28 05/29/24 09:30 05/29/24 09:30 05/29/24 09:30 Oxygen Flow Rate (L/min) 7 Oxygen Delivery Method Nasal Cannula Weight: 158.2 kg Body Mass Index (BMI) 61.7 Intake & Output: Intake and Output for Last 24 Hours 05/27/24 05/28/24 05/29/24 23:59 23:59 23:59 Intake Total 3324.13 / 3324.13 430.65 / 430.65 240 / 240 Output Total 3100 / 3100 1200 / 1200 800 / 800 Balance 224.13 / 224.13 -769.35 / -769.35 -560 / -560 Lab / Micro Data 05/29/24 05:53 05/29/24 05:53 Labs: Laboratory Results - last 24 hr 05/28/24 11:31: POC Glucose 182 H 05/28/24 16:20: POC Glucose 202 H 05/28/24 22:15: POC Glucose 268 H 05/29/24 05:53: WBC 7.7, RBC 3.62 L, Hgb 10.2 L, Hct 33.0 L, MCV 91.2, MCH 28.2, MCHC 30.9 L, RDW Std Deviation 51.9 H, RDW Coeff of Jung 15.6 H, Plt Count 307, MPV 9.4, Immature Gran % (Auto) 2.000 H, Neut % (Auto) 67.3, Lymph % (Auto) 17.6 L, [place] % (Auto) 10.2 H, Eos % (Auto) 2.0, Baso % (Auto) 0.9, Absolute Neuts (auto) 5.2, Absolute Lymphs (auto) 1.35, Nucleated RBC % 0.5, Sodium 137, Potassium 4.9, Chloride 101, Carbon Dioxide 26.9, Anion Gap 8, BUN 44 H, C reatinine 1.29 H, Estim Creat Clear Calc 84.96, Est GFR (MDRD) Non-Af 64, B UN/Creatinine Ratio 34.2 H, Glucose 148 H, Calcium 8.7 05/29/24 06:02: POC Glucose 135 H 05/29/24 08:41: POC Glucose 125 H Micro: Microbiology 05/27/24 04:45 Mucosa - Nasopharyngeal Respiratory Panel (PCR) - Final 05/27/24 01:46 Urine Catheter - Menjivar Legionella Antigen - Final 05/27/24 01:46 Urine Catheter - Menjivar Streptococcus pneumoniae Antigen (M - Final 05/26/24 23:26 Mucosa - Nose SARS-CoV-2, Influenza & RSV (PCR) - Final Physical Exam Narrative GENERAL: cooperative HEENT: Atraumatic; normocephalic EYES; Anicteric, Normal Conjunctiva NECK; supple, normal thyroid, RESPIRATORY: Diminished to auscultation CARDIOVASCULAR: Regular S1 S2, GI: soft, normoactive bowel sounds, : No Renal angle tenderness; EXTREMITIES: Bilateral stasis dermatitis MUSCULOSKELETAL: no muscle wasting NEURO: Awake; no lateralizing signs. SKIN: No Rash PSYCH; Flat affect Assessment & Plan Assessment/Plan (1) Pulmonary embolism on right: (2) HCAP (healthcare-associated pneumonia): (3) Acute on chronic hypoxic respiratory failure: (4) EITAN (acute kidney injury): PLAN: Plan Patient is a 58-year-old gentleman with multiple comorbidities resident at an extended [facility] facility presented with shortness of breath diagnosed with acute pulmonary embolism 1. Acute on chronic hypoxic respiratory failure ? Secondary to right-sided pulmonary embolism as well as suspected atypical pneumonia 2. Acute pulmonary embolism ? CTA obtained on admission demonstrated multifocal nonocclusive pulmonary embolism seen at the right lower lobe basal segment division No CT evidence of right heart strain. Patient was managed on systemic anticoagulation transition to p.o. apixaban starting 05/28/2024. Patient currently requiring 8 L flow of oxygen per minutes with above his baseline of 3 L flow per minute 3. Dyslipidemia ?Patient is on statin therapy, continued at home dose 4. Class III obesity with BMI of 62 ? Complicating care weight loss advised 5. Suspected atypical pneumonia ? Patient was started on meropenem cultures sent so far negative to date 6. Hypertension ? Blood pressure controlled, home medications continued with dose adjustment as needed 7. Diabetes mellitus type II -patient's oral hypoglycemics held. Placed on long acting insulin, Accu-Cheks a.c. and at bedtime and covered with sliding scale insulin 8. Acute on chronic congestive heart failure with preserved ejection fraction ? Echo from November 2023 demonstrated EF of 60% patient is on diuretic therapy continued 9. Acute kidney injury ? Chronic kidney disease stage III creatinine on admission was 1.82 improved to 1.29 continuous monitoring with daily BMPs ordered 10. GERD ? On PPI 11. Obstructive sleep apnea ? Patient was prescribed CPAP therapy with consistent use encouraged 12. Peripheral vascular disease ? With history of nonpressure ulcers involving both lower extremities consult placed to wound care nurse 13. Anemia ? Secondary to chronic disorder monitoring H&H and transfuse if patient becomes symptomatic or hemoglobin falls below 7 Time spent in the patient's overall evaluation,decision-making process, review of diagnostic data, adjustment of management, discussion with other providers, nursing nursing and ancillary staff involved in patient's care documentation, 53 Minutes Charges/Coding Visit Charges Inpatient E&M: 08279 [facility] Hosp L3
[2024-05-29] MEDS: Cholecalciferol (Vit D3) 125 MCG CAPSULE (5,000 UNITS) PO (12:03)
[2024-05-29] MEDS: Furosemide 20 MG Tablet PO ×2 (12:03→17:05)
[2024-05-29 12:17] LABS: Bedside Glucose 124 mg/dL (74-106)
[2024-05-29] MEDS: 0.9% Saline Lock 10 ML Syringe IV (13:52)
[2024-05-29 16:17] LABS: Bedside Glucose 169 mg/dL (74-106)
[2024-05-29] MEDS: Insulin Lispro 100 UNIT/ML INSULN.PEN SC (21:15)
[2024-05-29 21:54] LABS: Bedside Glucose 218 mg/dL (74-106)
[2024-05-30] VITALS (11 sets, daily range): BP systolic 119–157; BP diastolic 57–74; PULSE 64–80; RESP 16–30; TEMP 36.4–36.8; O2SAT 83–96
[2024-05-30] MEDS: Meropenem 1 GM in 0.9% Normal Saline (100mL MB+) 100 ML IV ×3 (06:08→22:48)
[2024-05-30 06:23] LABS: Absolute Lymphocyte Count 1.28 X10^3/uL (0.83-4.51); Absolute Neutrophil Count 5.4 X10^3/uL (2.0-7.7); Basophil# 0.06 X10^3/uL; Basophil% 0.8 % (0-1); Eosinophil# 0.15 X10^3/uL; Eosinophils% 1.9 % (0-5); Hematocrit 32.9 % (40-54); Hemoglobin 9.9 g/dL (13.0-16.5); Lymphocyte # 1.28 X10^3/ul (0.83-4.51); Lymphocyte % 16.5 % (19-41); Mean Corp Hgb Conc 30.1 g/dL (32-36); Mean Corpuscular Hgb 27.7 pg (27.0-32.0); Mean Corpuscular Volume 92.2 fL (80-94); Mean Platelet Vol. 9.4 fl (6.2-12.0); Monocyte# 0.71 X10^3/uL; Monocyte% 9.1 % (0-10); NRBC Flagged by Analyzer 0.8 % (0-5); Neutrophil # 5.39 X10^3/uL (2.7-7.7); Neutrophil % 69.4 % (47-70); Platelet Count 331 K/mm3 (150-450); RBC Distribution Width CV 15.7 % (11.6-14.6); RBC Distribution Width SD 52.5 fl (35.1-43.9); Red Blood Count 3.57 M/mm3 (4.6-6.2); White Blood Count 7.8 K/mm3 (4.4-11.0)
[2024-05-30 06:53] LABS: Bedside Glucose 202 mg/dL (74-106)
[2024-05-30 06:53] LABS: Anion Gap 8 (5-15); BUN 42 mg/dL (4-19); BUN/Creat Ratio 31.6 RATIO (10-20); Calcium,Total 8.6 mg/dL (7.6-11.0); Chloride 101 mmol/L (98-108); Creatinine, Serum 1.32 mg/dL (0.70-1.20); EST Glomerular Filtration Rate 62 (>60); Estimated Creatinine Clearance 83.03 ml/min (50-250); Glucose 219 mg/dL (70-99); Magnesium 2.7 mg/dL (1.5-2.2); Phosphorus 4.2 mg/dL (2.7-4.5); Potassium 5.7 mmol/L (3.3-5.1); Sodium Level 137 mmol/L (133-145)
[2024-05-30] MEDS: Ipratropium/Albuterol Sulfate 3 ML AMPUL.NEB INHALATION ×5 (06:53→23:20)
[2024-05-30] MEDS: Insulin Glargine-YFGN 100 UNIT/ML Pen 50 UNIT SC ×2 (08:54→22:48)
[2024-05-30] MEDS: guaiFENesin 600 MG Tablet PO ×2 (08:55→22:48)
[2024-05-30] MEDS: Pantoprazole Sodium 20 MG Tablet PO (08:55)
[2024-05-30] MEDS: Ascorbic Acid 500 MG Tablet 1000 MG PO ×2 (08:55→17:19)
[2024-05-30] MEDS: Furosemide 20 MG Tablet PO (08:55)
[2024-05-30] MEDS: APIXABAN 5 MG TABLET 10 MG PO ×2 (08:55→22:47)
[2024-05-30] MEDS: Isosorbide Mononitrate 60 MG Tablet PO (08:56)
[2024-05-30] MEDS: predniSONE 10 MG Tablet PO (08:56)
[2024-05-30] MEDS: Zinc Sulfate 50 mg zinc (220 mg) ORAL capsule PO (08:56)
[2024-05-30] MEDS: Carvedilol 25 MG Tablet PO ×2 (08:56→17:19)
[2024-05-30] MEDS: Cholecalciferol (Vit D3) 125 MCG CAPSULE (5,000 UNITS) PO (08:56)
[2024-05-30] MEDS: Lactobacillis Acidophilus 1 CAP PO ×4 (08:56→22:47)
[2024-05-30] MEDS: Insulin Lispro 100 UNIT/ML INSULN.PEN SC ×4 (08:57→22:47)
[2024-05-30] MEDS: Insulin Lispro 100 UNIT/ML INSULN.PEN 10 UNIT SC ×3 (08:57→17:18)
--- NOTE | 2024-05-30 09:09 | CASEMGMT ---
Discharge Planning Updates sent to [facility]. Aida Matute DC Planning Asst.
[2024-05-30] MEDS: Albuterol 2.5 MG/3 ML VIAL.NEB. INHALATION (09:58)
--- NOTE | 2024-05-30 10:09 | PCM.PN.HOSP ---
Reason for Visit Reason for Visit: Diagnoses Type 2 diabetes mellitus with hyperglycemia (05/27/24) Morbid (severe) obesity due to excess calories (05/27/24) Hyperkalemia (05/27/24) Other pulmonary embolism without acute cor pulmonale (05/27/24) Pneumonia, unspecified organism (05/27/24) Acute and chronic respiratory failure with hypoxia (05/27/24) Acute kidney failure, unspecified (05/27/24) Chronic kidney disease, stage 3 unspecified (05/27/24) Adverse effect of unspecified drugs, medicaments and biological substances, initial encounter (05/27/24) Body mass index [BMI] 50.0-59.9, adult (05/27/24) Subjective Subjective Patient seen remains dyspneic at rest with increasing oxygen requirement currently on 9 L flow per minute. Diagnostic data reviewed significant for potassium of 5.8 repeat BMP ordered Objective Data Objective Data Vital Signs: Vital Signs Temp Pulse Resp BP Pulse Ox O2 Del Method O2 Flow Rate 97.6 F L 70 20 H 157/57 H 90 Nasal Cannula 8 05/30/24 08:50 05/30/24 08:50 05/30/24 08:50 05/30/24 08:50 05/30/24 08:50 05/30/24 09:14 05/30/24 09:14 Oxygen Flow Rate (L/min) 8 Oxygen Delivery Method Nasal Cannula Weight: 158.2 kg Body Mass Index (BMI) 61.7 Intake & Output: Intake and Output for Last 24 Hours 05/28/24 05/29/24 05/30/24 23:59 23:59 23:59 Intake Total 430.65 / 430.65 1060 / 1060 360 / 360 Output Total 1200 / 1200 1400 / 1400 650 / 650 Balance -769.35 / -769.35 -340 / -340 -290 / -290 Lab / Micro Data 05/30/24 05:32 05/30/24 05:32 Labs: Laboratory Results - last 24 hr 05/29/24 11:53: POC Glucose 124 H 05/29/24 16:00: POC Glucose 169 H 05/29/24 21:10: POC Glucose 218 H 05/30/24 05:32: WBC 7.8, RBC 3.57 L, Hgb 9.9 L, Hct 32.9 L, MCV 92.2, MCH 27.7, MCHC 30.1 L, RDW Std Deviation 52.5 H, RDW Coeff of Jung 15.7 H, Plt Count 331, MPV 9.4, Immature Gran % (Auto) 2.300 H, Neut % (Auto) 69.4, Lymph % (Auto) 16.5 L, [place] % (Auto) 9.1, Eos % (Auto) 1.9, Baso % (Auto) 0.8, Absolute Neuts (auto) 5.4, Absolute Lymphs (auto) 1.28, Nucleated RBC % 0.8, Sodium 137, Potassium 5.7 H, Chloride 101, Carbon Dioxide 28.0, Anion Gap 8, BUN 42 H, Creatinine 1.32 H, Estim Creat Clear Calc 83.03, Est GFR (MDRD) Non-Af 62, BUN/Creatinine Ratio 31.6 H, Glucose 219 H, Calcium 8.6, Phosphorus 4.2, Magnesium 2.7 H 05/30/24 06:06: POC Glucose 202 H Micro: Microbiology 05/27/24 04:45 Mucosa - Nasopharyngeal Respiratory Panel (PCR) - Final 05/27/24 01:46 Urine Catheter - Menjivar Legionella Antigen - Final 05/27/24 01:46 Urine Catheter - Menjivar Streptococcus pneumoniae Antigen (M - Final 05/26/24 23:26 Mucosa - Nose SARS-CoV-2, Influenza & RSV (PCR) - Final Physical Exam Narrative GENERAL: cooperative but dyspneic at rest HEENT: Atraumatic; normocephalic EYES; Anicteric, Normal Conjunctiva NECK; supple, normal thyroid, RESPIRATORY: Diminished to auscultation CARDIOVASCULAR: Regular S1 S2, GI: soft, normoactive bowel sounds, : No Renal angle tenderness; EXTREMITIES: Bilateral stasis dermatitis MUSCULOSKELETAL: no muscle wasting NEURO: Awake; no lateralizing signs. SKIN: No Rash PSYCH; Flat affect Assessment & Plan Assessment/Plan (1) Pulmonary embolism on right: (2) HCAP (healthcare-associated pneumonia): (3) Acute on chronic hypoxic respiratory failure: (4) EITAN (acute kidney injury): PLAN: Plan Patient is a 58-year-old gentleman with multiple comorbidities resident at an extended [facility] facility presented with shortness of breath diagnosed with acute pulmonary embolism 1. Acute on chronic hypoxic respiratory failure ? Secondary to right-sided pulmonary embolism as well as suspected atypical pneumonia ? 05/30/2024; patient requiring increasing oxygen flow currently 9 L flow per minute. 2. Acute pulmonary embolism ? CTA obtained on admission demonstrated multifocal nonocclusive pulmonary embolism seen at the right lower lobe basal segment division No CT evidence of right heart strain. Patient was managed on systemic anticoagulation transition to p.o. apixaban starting 05/28/2024. Patient currently requiring 8 L flow of oxygen per minutes with above his baseline of 3 L flow per minute 3. Dyslipidemia ?Patient is on statin therapy, continued at home dose 4. Class III obesity with BMI of 62 ? Complicating care weight loss advised 5. Suspected atypical pneumonia ? Patient was started on meropenem cultures sent so far negative to date 6. Hypertension ? Blood pressure controlled, home medications continued with dose adjustment as needed 7. Diabetes mellitus type II -patient's oral hypoglycemics held. Placed on long acting insulin, Accu-Cheks a.c. and at bedtime and covered with sliding scale insulin 8. Acute on chronic congestive heart failure with preserved ejection fraction ? Echo from November 2023 demonstrated EF of 60% patient is on diuretic therapy continued ? 05/30/2024; adjusted patient diuretic therapy do suspect fluid overload contributing to patient's significant hypoxia 9. Acute kidney injury ? Chronic kidney disease stage III creatinine on admission was 1.82 improved to 1.29 continuous monitoring with daily BMPs ordered 10. GERD ? On PPI 11. Obstructive sleep apnea ? Patient was prescribed CPAP therapy with consistent use encouraged 12. Peripheral vascular disease ? With history of nonpressure ulcers involving both lower extremities consult placed to wound care nurse 13. Anemia ? Secondary to chronic disorder monitoring H&H and transfuse if patient becomes symptomatic or hemoglobin falls below 7 14. Hyperkalemia ? Repeat potassium ordered for eval if still remains high patient to receive Kayexalate Time spent in the patient's overall evaluation,decision-making process, review of diagnostic data, adjustment of management, discussion with other providers, nursing nursing and ancillary staff involved in patient's care documentation, 50 Minutes Charges/Coding Visit Charges Inpatient E&M: 17565 [facility] Hosp L3
[2024-05-30 10:58] LABS: Anion Gap 7 (5-15); BUN 41 mg/dL (4-19); BUN/Creat Ratio 29.9 RATIO (10-20); Calcium,Total 8.6 mg/dL (7.6-11.0); Carbon Dioxide 28.4 mmol/L (21.0-32.0); Chloride 101 mmol/L (98-108); Creatinine, Serum 1.37 mg/dL (0.70-1.20); EST Glomerular Filtration Rate 59 (>60); Glucose 232 mg/dL (70-99); Potassium 5.7 mmol/L (3.3-5.1); Sodium Level 136 mmol/L (133-145)
[2024-05-30] MEDS: Sodium Polystyrene Sulfonate 15 GM/60 ML UDC 30 GM PO (12:46)
[2024-05-30 13:02] LABS: Bedside Glucose 201 mg/dL (74-106)
--- NOTE | 2024-05-30 13:41 | WOUNDNOTE ---
Removed TRINITY wraps and dressings. there was less drainage noted today. redness improving. washed legs and feet with soap and water. pat dry. placed dry dressings and wrapped with kerlix. reapplied the TRINITY wraps from the base of the toes to just below the knees. pt tolerated well. legs elevated up in recliner chair.
[2024-05-30] MEDS: Furosemide 40 MG/4 ML Vial IV ×2 (15:26→22:48)
[2024-05-30 17:40] LABS: Bedside Glucose 254 mg/dL (74-106)
[2024-05-30 20:18] LABS: Anion Gap 8 (5-15); BUN 43 mg/dL (4-19); BUN/Creat Ratio 27.6 RATIO (10-20); Calcium,Total 8.4 mg/dL (7.6-11.0); Carbon Dioxide 27.8 mmol/L (21.0-32.0); Chloride 99 mmol/L (98-108); Creatinine, Serum 1.56 mg/dL (0.70-1.20); EST Glomerular Filtration Rate 51 (>60); Estimated Creatinine Clearance 70.25 ml/min (50-250); Glucose 392 mg/dL (70-99); Potassium 5.6 mmol/L (3.3-5.1); Sodium Level 135 mmol/L (133-145)
[2024-05-30] MEDS: 0.9% Saline Lock 10 ML Syringe IV (22:49)
--- NOTE | 2024-05-30 23:40 | PCM.HOSP.N ---
Hospitalist Note Patient refusing BiPAP, on 15 L high flow, will transition to Airvo.
[2024-05-31] VITALS (15 sets, daily range): BP systolic 129–140; BP diastolic 56–61; PULSE 70–83; RESP 17–28; TEMP 36.6; O2SAT 90–99
[2024-05-31 01:11] LABS: Bedside Glucose 359 mg/dL (74-106)
[2024-05-31] MEDS: Ipratropium/Albuterol Sulfate 3 ML AMPUL.NEB INHALATION ×4 (03:30→20:10)
[2024-05-31 05:59] LABS: Absolute Lymphocyte Count 1.15 X10^3/uL (0.83-4.51); Absolute Neutrophil Count 6.5 X10^3/uL (2.0-7.7); Basophil# 0.05 X10^3/uL; Basophil% 0.6 % (0-1); Eosinophil# 0.09 X10^3/uL; Hematocrit 31.5 % (40-54); Hemoglobin 9.6 g/dL (13.0-16.5); Lymphocyte # 1.15 X10^3/ul (0.83-4.51); Lymphocyte % 13.1 % (19-41); Mean Corp Hgb Conc 30.5 g/dL (32-36); Mean Corpuscular Hgb 27.6 pg (27.0-32.0); Mean Corpuscular Volume 90.5 fL (80-94); Mean Platelet Vol. 9.4 fl (6.2-12.0); Monocyte# 0.79 X10^3/uL; NRBC Flagged by Analyzer 0.6 % (0-5); Platelet Count 312 K/mm3 (150-450); RBC Distribution Width CV 15.7 % (11.6-14.6); RBC Distribution Width SD 51.8 fl (35.1-43.9); Red Blood Count 3.48 M/mm3 (4.6-6.2); White Blood Count 8.8 K/mm3 (4.4-11.0)
[2024-05-31] MEDS: Furosemide 40 MG/4 ML Vial IV ×3 (06:01→21:55)
[2024-05-31] MEDS: Meropenem 1 GM in 0.9% Normal Saline (100mL MB+) 100 ML IV ×3 (06:02→21:54)
[2024-05-31 06:28] LABS: Anion Gap 8 (5-15); BUN 42 mg/dL (4-19); BUN/Creat Ratio 32.5 RATIO (10-20); Calcium,Total 8.6 mg/dL (7.6-11.0); Carbon Dioxide 29.1 mmol/L (21.0-32.0); Chloride 100 mmol/L (98-108); Creatinine, Serum 1.29 mg/dL (0.70-1.20); EST Glomerular Filtration Rate 64 (>60); Estimated Creatinine Clearance 84.96 ml/min (50-250); Glucose 241 mg/dL (70-99); Potassium 4.9 mmol/L (3.3-5.1); Sodium Level 137 mmol/L (133-145)
[2024-05-31] MEDS: Ascorbic Acid 500 MG Tablet 1000 MG PO ×2 (08:00→17:53)
[2024-05-31] MEDS: APIXABAN 5 MG TABLET 10 MG PO ×2 (08:01→21:56)
[2024-05-31] MEDS: guaiFENesin 600 MG Tablet PO ×2 (08:01→21:55)
[2024-05-31] MEDS: Pantoprazole Sodium 20 MG Tablet PO (08:01)
[2024-05-31] MEDS: Isosorbide Mononitrate 60 MG Tablet PO (08:01)
[2024-05-31] MEDS: Carvedilol 25 MG Tablet PO ×2 (08:02→17:54)
[2024-05-31] MEDS: predniSONE 10 MG Tablet PO (08:02)
[2024-05-31] MEDS: Cholecalciferol (Vit D3) 125 MCG CAPSULE (5,000 UNITS) PO (08:02)
[2024-05-31] MEDS: Lactobacillis Acidophilus 1 CAP PO ×3 (08:02→21:55)
[2024-05-31] MEDS: Zinc Sulfate 50 mg zinc (220 mg) ORAL capsule PO (08:02)
[2024-05-31] MEDS: Insulin Lispro 100 UNIT/ML INSULN.PEN 10 UNIT SC ×2 (08:03→11:50)
[2024-05-31] MEDS: Insulin Glargine-YFGN 100 UNIT/ML Pen 50 UNIT SC ×2 (08:04→21:53)
[2024-05-31] MEDS: Insulin Lispro 100 UNIT/ML INSULN.PEN SC ×2 (08:04→11:51)
[2024-05-31 08:16] LABS: Bedside Glucose 191 mg/dL (74-106)
--- NOTE | 2024-05-31 08:54 | PCM.PN.HOSP ---
Reason for Visit Reason for Visit: Diagnoses Type 2 diabetes mellitus with hyperglycemia (05/27/24) Morbid (severe) obesity due to excess calories (05/27/24) Hyperkalemia (05/27/24) Other pulmonary embolism without acute cor pulmonale (05/27/24) Pneumonia, unspecified organism (05/27/24) Acute and chronic respiratory failure with hypoxia (05/27/24) Acute kidney failure, unspecified (05/27/24) Chronic kidney disease, stage 3 unspecified (05/27/24) Adverse effect of unspecified drugs, medicaments and biological substances, initial encounter (05/27/24) Body mass index [BMI] 50.0-59.9, adult (05/27/24) Subjective Subjective Patient breathing still remains labored and had to be placed on noninvasive ventilation?Airvo Objective Data Objective Data Vital Signs: Vital Signs Temp Pulse Resp BP Pulse Ox O2 Del Method O2 Flow Rate 97.8 F 77 17 134/59 H 93 Airvo 45 05/31/24 07:53 05/31/24 07:53 05/31/24 07:53 05/31/24 07:53 05/31/24 07:53 05/31/24 08:22 05/31/24 03:33 FiO2 55 05/31/24 05:30 Oxygen Flow Rate (L/min) 45 Oxygen Delivery Method Airvo Weight: 158.2 kg Body Mass Index (BMI) 61.7 Intake & Output: Intake and Output for Last 24 Hours 05/29/24 05/30/24 05/31/24 23:59 23:59 23:59 Intake Total 1060 / 1060 1200 / 1200 120 / 120 Output Total 1400 / 1400 1150 / 2150 2600 / 2600 Balance -340 / -340 50 / -950 -2480 / -2480 Lab / Micro Data 05/31/24 05:48 05/31/24 05:48 Labs: Laboratory Results - last 24 hr 05/30/24 10:17: Sodium 136, Potassium 5.7 H 05/30/24 10:17: Potassium Cancelled, Chloride 101, Carbon Dioxide 28.4, Anion Gap 7, BUN 41 H, Creatinine 1.37 H, Estim Creat Clear Calc 80.00, Est GFR (MDRD) Non-Af 59 L, BUN/Creatinine Ratio 29.9 H, Glucose 232 H, Calcium 8.6 05/30/24 12:42: POC Glucose 201 H 05/30/24 17:17: POC Glucose 254 H 05/30/24 19:38: Sodium 135, Potassium 5.6 H, Chloride 99, Carbon Dioxide 27.8, Anion Gap 8, BUN 43 H, Creatinine 1.56 H, Estim Creat Clear Calc 70.25, Est GFR (MDRD) Non-Af 51 L, BUN/Creatinine Ratio 27.6 H, Glucose 392 H, Calcium 8.4 05/30/24 22:45: POC Glucose 359 H 05/31/24 05:48: WBC 8.8, RBC 3.48 L, Hgb 9.6 L, Hct 31.5 L, MCV 90.5, MCH 27.6, MCHC 30.5 L, RDW Std Deviation 51.8 H, RDW Coeff of Jung 15.7 H, Plt Count 312, MPV 9.4, Immature Gran % (Auto) 2.300 H, Neut % (Auto) 74.0 H, Lymph % (Auto) 13.1 L, [place] % (Auto) 9.0, Eos % (Auto) 1.0, Baso % (Auto) 0.6, Absolute Neuts (auto) 6.5, Absolute Lymphs (auto) 1.15, Nucleated RBC % 0.6, Sodium 137, Potassium 4.9, Chloride 100, Carbon Dioxide 29.1, Anion Gap 8, BUN 42 H, Creatinine 1.29 H, Estim Creat Clear Calc 84.96, Est GFR (MDRD) Non-Af 64, BUN/Creatinine Ratio 32.5 H, Glucose 241 H, Calcium 8.6 05/31/24 07:46: POC Glucose 191 H Micro: Microbiology 05/27/24 04:45 Mucosa - Nasopharyngeal Respiratory Panel (PCR) - Final 05/27/24 01:46 Urine Catheter - Menjivar Legionella Antigen - Final 05/27/24 01:46 Urine Catheter - Menjivar Streptococcus pneumoniae Antigen (M - Final 05/26/24 23:26 Mucosa - Nose SARS-CoV-2, Influenza & RSV (PCR) - Final Physical Exam Narrative GENERAL: cooperative but dyspneic at rest HEENT: Atraumatic; normocephalic EYES; Anicteric, Normal Conjunctiva NECK; supple, normal thyroid, RESPIRATORY: Diminished to auscultation CARDIOVASCULAR: Regular S1 S2, GI: soft, normoactive bowel sounds, : No Renal angle tenderness; EXTREMITIES: Bilateral stasis dermatitis MUSCULOSKELETAL: no muscle wasting NEURO: Awake; no lateralizing signs. SKIN: No Rash PSYCH; Flat affect Assessment & Plan Assessment/Plan (1) Pulmonary embolism on right: (2) HCAP (healthcare-associated pneumonia): (3) Acute on chronic hypoxic respiratory failure: (4) EITAN (acute kidney injury): PLAN: Plan Patient is a 58-year-old gentleman with multiple comorbidities resident at an [facility] presented with shortness of breath diagnosed with acute pulmonary embolism 1. Acute on chronic hypoxic respiratory failure ? Secondary to right-sided pulmonary embolism as well as suspected atypical pneumonia ? 05/30/2024; patient requiring increasing oxygen flow currently 9 L flow per minute. ? 06/01/2023.Patient breathing still remains labored and had to be placed on noninvasive ventilation?Airvo 2. Acute pulmonary embolism ? CTA obtained on admission demonstrated multifocal nonocclusive pulmonary embolism seen at the right lower lobe basal segment division No CT evidence of right heart strain. Patient was managed on systemic anticoagulation transition to p.o. apixaban starting 05/28/2024. Patient currently requiring 8 L flow of oxygen per minutes with above his baseline of 3 L flow per minute 3. Dyslipidemia ?Patient is on statin therapy, continued at home dose 4. Class III obesity with BMI of 62 ? Complicating care weight loss advised 5. Suspected atypical pneumonia ? Patient was started on meropenem cultures sent so far negative to date 6. Hypertension ? Blood pressure controlled, home medications continued with dose adjustment as needed 7. Diabetes mellitus type II -patient's oral hypoglycemics held. Placed on long acting insulin, Accu-Cheks a.c. and at bedtime and covered with sliding scale insulin 8. Acute on chronic congestive heart failure with preserved ejection fraction ? Echo from November 2023 demonstrated EF of 60% patient is on diuretic therapy continued ? 05/30/2024; adjusted patient diuretic therapy do suspect fluid overload contributing to patient's significant hypoxia ? 03/02/2025 increase patient diuretic dose 9. Acute kidney injury ? Chronic kidney disease stage III creatinine on admission was 1.82 improved to 1.29 continuous monitoring with daily BMPs ordered 10. GERD ? On PPI 11. Obstructive sleep apnea ? Patient was prescribed CPAP therapy with consistent use encouraged 12. Peripheral vascular disease ? With history of nonpressure ulcers involving both lower extremities consult placed to wound care nurse 13. Anemia ? Secondary to chronic disorder monitoring H&H and transfuse if patient becomes symptomatic or hemoglobin falls below 7 14. Hyperkalemia ? Repeat potassium ordered for eval if still remains high patient to receive Kayexalate ? 05/31/2024; patient responded to Kayexalate potassium down to 4.9 Time spent in the patient's overall evaluation,decision-making process, review of diagnostic data, adjustment of management, discussion with other providers, nursing nursing and ancillary staff involved in patient's care documentation, 40 minutes Charges/Coding Visit Charges Inpatient E&M: 88447 Subs Hosp L2
--- NOTE | 2024-05-31 08:58 | WOUNDNOTE ---
Removed TRINITY wraps and dressings from bilateral lower legs. minimal drainage noted today. still some dry skin noted. washed legs and feet with soap and water. pat dry. applied petroleum and covered with dry dressings. wrapped with kerlix. applied TRINITY wraps from the base of the toes to just below the knees. pt tolerated well. will plan every other day dressing changes. pt hoping to return to [place] this weekend.
[2024-05-31 12:18] LABS: Bedside Glucose 210 mg/dL (74-106)
[2024-05-31] MEDS: Sodium Chloride 0.65% 1 SPRAY SPRAY.BTL 2 SPRAY NASAL (14:50)
[2024-05-31] MEDS: 0.9% Saline Lock 10 ML Syringe IV ×2 (14:50→21:54)
[2024-05-31 18:24] LABS: Bedside Glucose 177 mg/dL (74-106)
[2024-05-31] MEDS: 0.9% Normal Saline (100mL Bag) 100 ML 15 ML IV (22:05)
[2024-05-31 22:20] LABS: Bedside Glucose 273 mg/dL (74-106)
[2024-06-01] VITALS (33 sets, daily range): BP systolic 119–151; BP diastolic 59–71; PULSE 64–80; RESP 18–32; TEMP 36.3–36.7; O2SAT 85–99; BMI 61.8
--- NOTE | 2024-06-01 03:00 | NURSING ---
This RN is taking over care at this time.
[2024-06-01] MEDS: Furosemide 40 MG/4 ML Vial IV ×3 (05:18→22:17)
[2024-06-01] MEDS: Meropenem 1 GM in 0.9% Normal Saline (100mL MB+) 100 ML IV ×3 (05:23→22:18)
[2024-06-01] MEDS: 0.9% Saline Lock 10 ML Syringe IV ×2 (05:24→22:17)
[2024-06-01] MEDS: Ipratropium/Albuterol Sulfate 3 ML AMPUL.NEB INHALATION ×3 (07:11→20:05)
--- NOTE | 2024-06-01 08:05 | PCM.PN.HOSP ---
Reason for Visit Reason for Visit: Diagnoses Type 2 diabetes mellitus with hyperglycemia (05/27/24) Morbid (severe) obesity due to excess calories (05/27/24) Hyperkalemia (05/27/24) Other pulmonary embolism without acute cor pulmonale (05/27/24) Pneumonia, unspecified organism (05/27/24) Acute and chronic respiratory failure with hypoxia (05/27/24) Acute kidney failure, unspecified (05/27/24) Chronic kidney disease, stage 3 unspecified (05/27/24) Adverse effect of unspecified drugs, medicaments and biological substances, initial encounter (05/27/24) Body mass index [BMI] 50.0-59.9, adult (05/27/24) Subjective Subjective Patient seen down to 5 L flow per minute. Objective Data Objective Data Vital Signs: Vital Signs Temp Pulse Resp BP Pulse Ox O2 Del Method O2 Flow Rate 97.9 F 64 18 119/65 94 Nasal Cannula 4 06/01/24 05:11 06/01/24 07:11 06/01/24 07:11 06/01/24 05:11 06/01/24 07:11 06/01/24 07:11 06/01/24 07:11 FiO2 52 06/01/24 05:27 Oxygen Flow Rate (L/min) 4 Oxygen Delivery Method Nasal Cannula Weight: 158.4 kg Body Mass Index (BMI) 61.8 Intake & Output: Intake and Output for Last 24 Hours 05/30/24 05/31/24 06/01/24 23:59 23:59 23:59 Intake Total 1200 / 1200 1606.25 / 1606.25 120 / 120 Output Total 1150 / 2150 4450 / 4450 1250 / 1250 Balance 50 / -950 -2843.75 / -2843.75 -1130 / -1130 Lab / Micro Data 06/01/24 08:17 06/01/24 08:17 Labs: Laboratory Results - last 24 hr 05/31/24 07:46: POC Glucose 191 H 05/31/24 11:48: POC Glucose 210 H 05/31/24 17:51: POC Glucose 177 H 05/31/24 21:52: POC Glucose 273 H Micro: Microbiology 05/27/24 04:45 Mucosa - Nasopharyngeal Respiratory Panel (PCR) - Final 05/27/24 01:46 Urine Catheter - Menjivar Legionella Antigen - Final 05/27/24 01:46 Urine Catheter - Menjivar Streptococcus pneumoniae Antigen (M - Final 05/26/24 23:26 Mucosa - Nose SARS-CoV-2, Influenza & RSV (PCR) - Final Physical Exam Narrative GENERAL: cooperative but dyspneic at rest HEENT: Atraumatic; normocephalic EYES; Anicteric, Normal Conjunctiva NECK; supple, normal thyroid, RESPIRATORY: Diminished to auscultation CARDIOVASCULAR: Regular S1 S2, GI: soft, normoactive bowel sounds, : No Renal angle tenderness; EXTREMITIES: Bilateral stasis dermatitis MUSCULOSKELETAL: no muscle wasting NEURO: Awake; no lateralizing signs. SKIN: No Rash PSYCH; Flat affect Assessment & Plan Assessment/Plan (1) Pulmonary embolism on right: (2) HCAP (healthcare-associated pneumonia): (3) Acute on chronic hypoxic respiratory failure: (4) EITAN (acute kidney injury): PLAN: Plan Patient is a 58-year-old gentleman with multiple comorbidities resident at an [facility] facility presented with shortness of breath diagnosed with acute pulmonary embolism 1. Acute on chronic hypoxic respiratory failure ? Secondary to right-sided pulmonary embolism as well as suspected atypical pneumonia ? 05/30/2024; patient requiring increasing oxygen flow currently 9 L flow per minute. ? 06/01/2023.Patient breathing still remains labored and had to be placed on noninvasive ventilation?Airvo ? 06/02/2023; patient oxygen requirement improving currently down to 5 L flow per minute. 2. Acute pulmonary embolism ? CTA obtained on admission demonstrated multifocal nonocclusive pulmonary embolism seen at the right lower lobe basal segment division No CT evidence of right heart strain. Patient was managed on systemic anticoagulation transition to p.o. apixaban starting 05/28/2024. Patient currently requiring 8 L flow of oxygen per minutes with above his baseline of 3 L flow per minute 3. Dyslipidemia ?Patient is on statin therapy, continued at home dose 4. Class III obesity with BMI of 62 ? Complicating care weight loss advised 5. Suspected atypical pneumonia ? Patient was started on meropenem cultures sent so far negative to date 6. Hypertension ? Blood pressure controlled, home medications continued with dose adjustment as needed 7. Diabetes mellitus type II -patient's oral hypoglycemics held. Placed on long acting insulin, Accu-Cheks a.c. and at bedtime and covered with sliding scale insulin 8. Acute on chronic congestive heart failure with preserved ejection fraction ? Echo from November 2023 demonstrated EF of 60% patient is on diuretic therapy continued ? 05/30/2024; adjusted patient diuretic therapy do suspect fluid overload contributing to patient's significant hypoxia ? 05/31/2024 increase patient diuretic dose ? 06/01/2024; patient continues to diurese well and is currently negative fluid balance of 1.6 L over the past 24 hours. Also ordered thousand 200 cc fluid restriction per 24-hour 9. Acute kidney injury ? Chronic kidney disease stage III creatinine on admission was 1.82 improved to 1.29 continuous monitoring with daily BMPs ordered 10. GERD ? On PPI 11. Obstructive sleep apnea ? Patient was prescribed CPAP therapy with consistent use encouraged 12. Peripheral vascular disease ? With history of nonpressure ulcers involving both lower extremities consult placed to wound care nurse 13. Anemia ? Secondary to chronic disorder monitoring H&H and transfuse if patient becomes symptomatic or hemoglobin falls below 7 14. Hyperkalemia ? Repeat potassium ordered for eval if still remains high patient to receive Kayexalate ? 05/31/2024; patient responded to Kayexalate potassium down to 4.9 Time spent in the patient's overall evaluation,decision-making process, review of diagnostic data, adjustment of management, discussion with other providers, nursing nursing and ancillary staff involved in patient's care documentation, 38 minutes Charges/Coding Visit Charges Inpatient E&M: 99774 Subs Hosp L2
[2024-06-01] MEDS: guaiFENesin 600 MG Tablet PO ×2 (08:10→22:17)
[2024-06-01] MEDS: Lactobacillis Acidophilus 1 CAP PO ×4 (08:10→22:17)
[2024-06-01] MEDS: Isosorbide Mononitrate 60 MG Tablet PO (08:10)
[2024-06-01] MEDS: Pantoprazole Sodium 20 MG Tablet PO (08:10)
[2024-06-01] MEDS: Carvedilol 25 MG Tablet PO ×2 (08:10→17:41)
[2024-06-01] MEDS: Cholecalciferol (Vit D3) 125 MCG CAPSULE (5,000 UNITS) PO (08:10)
[2024-06-01] MEDS: APIXABAN 5 MG TABLET 10 MG PO ×2 (08:11→22:17)
[2024-06-01] MEDS: Ascorbic Acid 500 MG Tablet 1000 MG PO ×2 (08:11→17:41)
[2024-06-01] MEDS: Sodium Chloride 0.65% 1 SPRAY SPRAY.BTL 2 SPRAY NASAL (08:11)
[2024-06-01] MEDS: predniSONE 10 MG Tablet PO (08:11)
[2024-06-01] MEDS: Zinc Sulfate 50 mg zinc (220 mg) ORAL capsule PO (08:11)
[2024-06-01 08:34] LABS: Absolute Lymphocyte Count 1.67 X10^3/uL (0.83-4.51); Absolute Neutrophil Count 5.5 X10^3/uL (2.0-7.7); Basophil# 0.06 X10^3/uL; Basophil% 0.7 % (0-1); Eosinophil# 0.15 X10^3/uL; Eosinophils% 1.8 % (0-5); Hematocrit 32.2 % (40-54); Lymphocyte # 1.67 X10^3/ul (0.83-4.51); Lymphocyte % 20.2 % (19-41); Mean Corp Hgb Conc 31.1 g/dL (32-36); Mean Corpuscular Hgb 28.2 pg (27.0-32.0); Mean Corpuscular Volume 90.7 fL (80-94); Mean Platelet Vol. 9.2 fl (6.2-12.0); Monocyte# 0.76 X10^3/uL; Monocyte% 9.2 % (0-10); NRBC Flagged by Analyzer 0.4 % (0-5); Neutrophil # 5.53 X10^3/uL (2.7-7.7); Platelet Count 276 K/mm3 (150-450); RBC Distribution Width CV 15.5 % (11.6-14.6); RBC Distribution Width SD 51.1 fl (35.1-43.9); Red Blood Count 3.55 M/mm3 (4.6-6.2); White Blood Count 8.3 K/mm3 (4.4-11.0)
[2024-06-01 08:59] LABS: Bedside Glucose 113 mg/dL (74-106)
[2024-06-01 09:47] LABS: Anion Gap 9 (5-15); BUN 37 mg/dL (4-19); BUN/Creat Ratio 36.7 RATIO (10-20); Calcium,Total 8.7 mg/dL (7.6-11.0); Carbon Dioxide 32.4 mmol/L (21.0-32.0); Chloride 100 mmol/L (98-108); Creatinine, Serum 1.02 mg/dL (0.70-1.20); EST Glomerular Filtration Rate 85 (>60); Estimated Creatinine Clearance 107.54 ml/min (50-250); Glucose 113 mg/dL (70-99); Potassium 4.1 mmol/L (3.3-5.1); Sodium Level 142 mmol/L (133-145)
[2024-06-01 11:07] LABS: Magnesium 2.1 mg/dL (1.5-2.2); Phosphorus 3.5 mg/dL (2.7-4.5)
[2024-06-01] MEDS: Insulin Glargine-YFGN 100 UNIT/ML Pen 50 UNIT SC ×2 (12:16→22:27)
[2024-06-01 12:51] LABS: Bedside Glucose 173 mg/dL (74-106)
[2024-06-01 17:34] LABS: Bedside Glucose 304 mg/dL (74-106)
[2024-06-01] MEDS: Insulin Lispro 100 UNIT/ML INSULN.PEN 10 UNIT SC (17:39)
[2024-06-01] MEDS: Insulin Lispro 100 UNIT/ML INSULN.PEN SC ×2 (17:40→22:24)
[2024-06-01 19:52] LABS: Bedside Glucose 395 mg/dL (74-106)
[2024-06-01 22:52] LABS: Bedside Glucose 394 mg/dL (74-106)
[2024-06-02] MEDS: 0.9% Saline Lock 10 ML Syringe IV (03:07)
--- NOTE | 2024-06-02 05:08 | PCM.HOSP.N ---
Hospitalist Note Patient more fatigued than normal on 5L NC. Given COPD history will obtain ABG to be cautious.
[2024-06-02] MEDS: Furosemide 40 MG/4 ML Vial IV ×3 (05:34→22:18)
[2024-06-02] MEDS: Meropenem 1 GM in 0.9% Normal Saline (100mL MB+) 100 ML IV ×3 (05:38→22:17)
[2024-06-02 06:23] LABS: Allen Test Positive; Base Excess 13 mmol/L (-2 to +2); Bicarbonate 39.7 mmol/L (22-26); Blood Gas Specimen Type ART; Mode Not entered; O2 Delivery Device Cannula; PO2 74 mmHG (75-100); SITE R Radial; SO2 91 % (95-99); Total Carbon Dioxide 42 mmol/L; pCO2 88.9 mmHg (35-45); pH 7.26 (7.35-7.45)
[2024-06-02] MEDS: Ipratropium/Albuterol Sulfate 3 ML AMPUL.NEB INHALATION ×4 (06:51→20:44)
[2024-06-02 06:52] VITALS: PULSE 63; PULSE 68; RESP 12; RESP 18; RESP 20; O2SAT 94
--- NOTE | 2024-06-02 07:39 | PN.HOSP_ITS ---
Reason for Visit Reason for Visit: Diagnoses Type 2 diabetes mellitus with hyperglycemia (05/27/24) Morbid (severe) obesity due to excess calories (05/27/24) Hyperkalemia (05/27/24) Other pulmonary embolism without acute cor pulmonale (05/27/24) Pneumonia, unspecified organism (05/27/24) Acute and chronic respiratory failure with hypoxia (05/27/24) Acute kidney failure, unspecified (05/27/24) Chronic kidney disease, stage 3 unspecified (05/27/24) Adverse effect of unspecified drugs, medicaments and biological substances, initial encounter (05/27/24) Body mass index [BMI] 50.0-59.9, adult (05/27/24) Subjective Subjective Patient reported feeling extremely fatigued during the early hours of the morning. ABGs obtained demonstrated pCO2 of 88.9 with pH of 7.26. Patient was placed on noninvasive ventilation BiPAP Objective Data Objective Data Vital Signs: Vital Signs Temp Pulse Resp BP Pulse Ox O2 Del Method O2 Flow Rate 97.8 F 63 20 H 134/59 H 94 Bi-pap 5 06/01/24 23:30 06/02/24 06:52 06/02/24 06:52 06/01/24 23:30 06/02/24 06:52 06/02/24 06:52 06/02/24 04:51 FiO2 40 06/02/24 06:52 Oxygen Flow Rate (L/min) 5 Oxygen Delivery Method Bi-pap Weight: 158.4 kg Body Mass Index (BMI) 61.8 Intake & Output: Intake and Output for Last 24 Hours 05/31/24 06/01/24 06/03/24 23:59 23:59 00:59 Intake Total 1606.25 / 1606.25 1500 / 1860 480 / 480 Output Total 4450 / 4450 4400 / 4900 875 / 875 Balance -2843.75 / -2843.75 -2900 / -3040 -395 / -395 Lab / Micro Data 06/02/24 07:40 06/02/24 07:40 Labs: Laboratory Results - last 24 hr 06/01/24 08:03: POC Glucose 113 H 06/01/24 08:17: WBC 8.3, RBC 3.55 L, Hgb 10.0 L, Hct 32.2 L, MCV 90.7, MCH 28.2, MCHC 31.1 L, RDW Std Deviation 51.1 H, RDW Coeff of Jung 15.5 H, Plt Count 276, MPV 9.2, Immature Gran % (Auto) 1.100 H, Neut % (Auto) 67.0, Lymph % (Auto) 20.2, [place] % (Auto) 9.2, Eos % (Auto) 1.8, Baso % (Auto) 0.7, Absolute Neuts (auto) 5.5, Absolute Lymphs (auto) 1.67, Nucleated RBC % 0.4, Sodium 142, Potassium 4.1, Chloride 100, Carbon Dioxide 32.4 H, Anion Gap 9, BUN 37 H, Creatinine 1.02, Estim Creat Clear Calc 107.54, Est GFR (MDRD) Non-Af 85, B UN/Creatinine Ratio 36.7 H, Glucose 113 H, Calcium 8.7, Phosphorus 3.5, Magnesium 2.1 06/01/24 12:12: POC Glucose 173 H 06/01/24 17:00: POC Glucose 304 H 06/01/24 19:25: POC Glucose 395 H 06/01/24 22:14: POC Glucose 394 H Micro: Microbiology 05/27/24 04:45 Mucosa - Nasopharyngeal Respiratory Panel (PCR) - Final 05/27/24 01:46 Urine Catheter - Menjivar Legionella Antigen - Final 05/27/24 01:46 Urine Catheter - Mnejivar Streptococcus pneumoniae Antigen (M - Final 05/26/24 23:26 Mucosa - Nose SARS-CoV-2, Influenza & RSV (PCR) - Final ABG Data ABG results: ABG 06/02/24 06:20 Specimen Type ART Sample Site R Radial pH 7.26 L Bicarbonate Actual 39.7 H Total CO2 42 Base Excess 13 H O2 Saturation 91 L O2 % 6.0 ABG pCO2 88.9 H* ABG pO2 74 L Catarino Test Positive O2 Delivery Device Cannula Vent Mode Not entered Crit Call To/Read Back Yes Blood Gas Notified Whom dr lazaro Blood Gas Notified Time 06:21:37 Physical Exam Narrative GENERAL: Patient on BiPAP HEENT: Atraumatic; normocephalic EYES; Anicteric, Normal Conjunctiva NECK; supple, normal thyroid, RESPIRATORY: Diminished to auscultation CARDIOVASCULAR: Regular S1 S2, GI: soft, normoactive bowel sounds, : No Renal angle tenderness; EXTREMITIES: Bilateral stasis dermatitis MUSCULOSKELETAL: no muscle wasting NEURO: no lateralizing signs. SKIN: No Rash PSYCH; Flat affect Assessment & Plan Assessment/Plan (1) Pulmonary embolism on right: (2) HCAP (healthcare-associated pneumonia): (3) Acute on chronic hypoxic respiratory failure: (4) EITAN (acute kidney injury): PLAN: Plan Patient is a 58-year-old gentleman with multiple comorbidities resident at an [facility] facility presented with shortness of breath diagnosed with acute pulmonary embolism 1. Acute on chronic hypoxic and hypercapnic respiratory failure ? Secondary to right-sided pulmonary embolism as well as suspected atypical pneumonia ? 05/30/2024; patient requiring increasing oxygen flow currently 9 L flow per minute. ? 06/01/2023.Patient breathing still remains labored and had to be placed on noninvasive ventilation?Airvo ? 06/02/2023; patient oxygen requirement improving currently down to 5 L flow per minute. ? 06/03/2023.Patient reported feeling extremely fatigued during the early hours of the morning. ABGs obtained demonstrated pCO2 of 88.9 with pH of 7.26. Patient was placed on noninvasive ventilation BiPAP 2. Acute pulmonary embolism ? CTA obtained on admission demonstrated multifocal nonocclusive pulmonary embolism seen at the right lower lobe basal segment division No CT evidence of right heart strain. Patient was managed on systemic anticoagulation transition to p.o. apixaban starting 05/28/2024. Patient currently requiring 8 L flow of oxygen per minutes with above his baseline of 3 L flow per minute 3. Dyslipidemia ?Patient is on statin therapy, continued at home dose 4. Class III obesity with BMI of 62 ? Complicating care weight loss advised 5. Suspected atypical pneumonia ? Patient was started on meropenem cultures sent so far negative to date 6. Hypertension ? Blood pressure controlled, home medications continued with dose adjustment as needed 7. Diabetes mellitus type II -patient's oral hypoglycemics held. Placed on long acting insulin, Accu-Cheks a.c. and at bedtime and covered with sliding scale insulin 8. Acute on chronic congestive heart failure with preserved ejection fraction ? Echo from November 2023 demonstrated EF of 60% patient is on diuretic therapy continued ? 05/30/2024; adjusted patient diuretic therapy do suspect fluid overload contributing to patient's significant hypoxia ? 05/31/2024 increase patient diuretic dose ? 06/01/2024; patient continues to diurese well and is currently negative fluid balance of 1.6 L over the past 24 hours. Also ordered thousand 200 cc fluid restriction per 24-hour ? 06/02/2024; patient continues to diurese well with negative fluid balance of 2.3 L during the past 24 hours 9. Acute kidney injury ? Chronic kidney disease stage III creatinine on admission was 1.82 improved to 1.29 continuous monitoring with daily BMPs ordered 10. GERD ? On PPI 11. Obstructive sleep apnea ? Patient was prescribed CPAP therapy with consistent use encouraged 12. Peripheral vascular disease ? With history of nonpressure ulcers involving both lower extremities consult placed to wound care nurse 13. Anemia ? Secondary to chronic disorder monitoring H&H and transfuse if patient becomes symptomatic or hemoglobin falls below 7 14. Hyperkalemia ? Repeat potassium ordered for eval if still remains high patient to receive Kayexalate ? 05/31/2024; patient responded to Kayexalate potassium down to 4.9 Time spent in the patient's overall evaluation,decision-making process, review of diagnostic data, adjustment of management, discussion with other providers, nursing nursing and ancillary staff involved in patient's care documentation, 50 minutes Charges/Coding Visit Charges Inpatient E&M: 13755 Subs Hosp L3
[2024-06-02 08:35] LABS: Basophil# 0.08 X10^3/uL; Basophil% 0.9 % (0-1); Eosinophil# 0.15 X10^3/uL; Eosinophils% 1.8 % (0-5); Hematocrit 35.7 % (40-54); Hemoglobin 10.6 g/dL (13.0-16.5); Lymphocyte % 15.4 % (19-41); Mean Corp Hgb Conc 29.7 g/dL (32-36); Mean Corpuscular Hgb 27.4 pg (27.0-32.0); Mean Corpuscular Volume 92.2 fL (80-94); Mean Platelet Vol. 9.6 fl (6.2-12.0); Monocyte% 9.5 % (0-10); NRBC Flagged by Analyzer 0.6 % (0-5); Neutrophil # 5.99 X10^3/uL (2.7-7.7); Neutrophil % 70.7 % (47-70); Platelet Count 288 K/mm3 (150-450); RBC Distribution Width CV 15.4 % (11.6-14.6); Red Blood Count 3.87 M/mm3 (4.6-6.2); White Blood Count 8.5 K/mm3 (4.4-11.0)
[2024-06-02 08:47] LABS: Bedside Glucose 223 mg/dL (74-106)
[2024-06-02 09:20] LABS: Anion Gap 10 (5-15); BUN 42 mg/dL (4-19); Calcium,Total 8.9 mg/dL (7.6-11.0); Carbon Dioxide 31.8 mmol/L (21.0-32.0); Chloride 99 mmol/L (98-108); Creatinine, Serum 1.11 mg/dL (0.70-1.20); EST Glomerular Filtration Rate 76 (>60); Estimated Creatinine Clearance 98.82 ml/min (50-250); Glucose 245 mg/dL (70-99); Potassium 4.7 mmol/L (3.3-5.1); Sodium Level 140 mmol/L (133-145)
[2024-06-02 11:04] VITALS: PULSE 65; PULSE 69; RESP 12; RESP 18; RESP 20; O2SAT 94
[2024-06-02 12:22] LABS: Bedside Glucose 182 mg/dL (74-106)
[2024-06-02 14:51] VITALS: PULSE 63; PULSE 69; RESP 12; RESP 22; O2SAT 91
[2024-06-02] MEDS: Carvedilol 25 MG Tablet PO (17:19)
[2024-06-02] MEDS: Ascorbic Acid 500 MG Tablet 1000 MG PO (17:19)
[2024-06-02 17:48] LABS: Bedside Glucose 131 mg/dL (74-106)
[2024-06-02] MEDS: Lactobacillis Acidophilus 1 CAP PO ×2 (18:04→22:17)
[2024-06-02 20:44] VITALS: PULSE 66; RESP 30; O2SAT 93
[2024-06-02 22:15] VITALS: BP 110/63; PULSE 68; RESP 22; TEMP 37; O2SAT 94
[2024-06-02] MEDS: APIXABAN 5 MG TABLET 10 MG PO (22:18)
[2024-06-02] MEDS: guaiFENesin 600 MG Tablet PO (22:18)
[2024-06-02] MEDS: Insulin Glargine-YFGN 100 UNIT/ML Pen 50 UNIT SC (22:18)
[2024-06-02 23:09] LABS: Bedside Glucose 178 mg/dL (74-106)
[2024-06-02 23:15] VITALS: PULSE 69; RESP 28; RESP 4; O2SAT 93
[2024-06-03 04:03] VITALS: PULSE 62; RESP 20; RESP 4; O2SAT 94
[2024-06-03 04:15] VITALS: BP 152/62; PULSE 64; RESP 22; TEMP 36.6; O2SAT 94
[2024-06-03] MEDS: Meropenem 1 GM in 0.9% Normal Saline (100mL MB+) 100 ML IV (05:35)
[2024-06-03] MEDS: Furosemide 40 MG/4 ML Vial IV (05:35)
[2024-06-03] MEDS: 0.9% Saline Lock 10 ML Syringe IV (05:37)
[2024-06-03 05:42] LABS: Absolute Lymphocyte Count 1.69 X10^3/uL (0.83-4.51); Absolute Neutrophil Count 7.6 X10^3/uL (2.0-7.7); Basophil# 0.07 X10^3/uL; Basophil% 0.7 % (0-1); Eosinophil# 0.19 X10^3/uL; Eosinophils% 1.8 % (0-5); Hematocrit 34.5 % (40-54); Hemoglobin 10.5 g/dL (13.0-16.5); Lymphocyte # 1.69 X10^3/ul (0.83-4.51); Lymphocyte % 16.2 % (19-41); Mean Corp Hgb Conc 30.4 g/dL (32-36); Mean Corpuscular Hgb 27.7 pg (27.0-32.0); Mean Platelet Vol. 9.7 fl (6.2-12.0); Monocyte# 0.76 X10^3/uL; Monocyte% 7.3 % (0-10); NRBC Flagged by Analyzer 0.2 % (0-5); Neutrophil # 7.63 X10^3/uL (2.7-7.7); Neutrophil % 73.1 % (47-70); Platelet Count 272 K/mm3 (150-450); RBC Distribution Width CV 15.4 % (11.6-14.6); RBC Distribution Width SD 50.4 fl (35.1-43.9); Red Blood Count 3.79 M/mm3 (4.6-6.2); White Blood Count 10.4 K/mm3 (4.4-11.0)
[2024-06-03] MEDS: 0.9% Normal Saline (100mL Bag) 100 ML 15 ML IV (05:42)
--- NOTE | 2024-06-03 08:07 | PN.HOSP_ITS ---
Reason for Visit Reason for Visit: Diagnoses Type 2 diabetes mellitus with hyperglycemia (05/27/24) Morbid (severe) obesity due to excess calories (05/27/24) Hyperkalemia (05/27/24) Other pulmonary embolism without acute cor pulmonale (05/27/24) Pneumonia, unspecified organism (05/27/24) Acute and chronic respiratory failure with hypoxia (05/27/24) Acute kidney failure, unspecified (05/27/24) Chronic kidney disease, stage 3 unspecified (05/27/24) Adverse effect of unspecified drugs, medicaments and biological substances, initial encounter (05/27/24) Body mass index [BMI] 50.0-59.9, adult (05/27/24) Subjective Subjective Patient seen appears to be back to his baseline plan is for patient to be assessed [facility] Objective Data Objective Data Vital Signs: Vital Signs Temp Pulse Resp BP Pulse Ox O2 Del Method O2 Flow Rate 97.8 F 64 22 H 152/62 H 94 Bi-pap 5 06/03/24 04:15 06/03/24 04:15 06/03/24 04:15 06/03/24 04:15 06/03/24 04:15 06/03/24 04:15 06/02/24 22:15 FiO2 35 06/03/24 04:15 Oxygen Flow Rate (L/min) 5 Oxygen Delivery Method Bi-pap Weight: 158.4 kg Body Mass Index (BMI) 61.8 Intake & Output: Intake and Output for Last 24 Hours 06/01/24 06/03/24 06/03/24 23:59 00:59 23:59 Intake Total 1500 / 1860 1200 / 1200 120 / 120 Output Total 4400 / 4900 3425 / 3425 1200 / 1200 Balance -2900 / -3040 -2225 / -2225 -1080 / -1080 Lab / Micro Data 06/03/24 05:03 06/03/24 05:03 Labs: Laboratory Results - last 24 hr 06/02/24 07:40: WBC 8.5, RBC 3.87 L, Hgb 10.6 L, Hct 35.7 L, MCV 92.2, MCH 27.4, MCHC 29.7 L, RDW Std Deviation 52.0 H, RDW Coeff of Jung 15.4 H, Plt Count 288, MPV 9.6, Immature Gran % (Auto) 1.700 H, Neut % (Auto) 70.7 H, Lymph % (Auto) 15.4 L, [place] % (Auto) 9.5, Eos % (Auto) 1.8, Baso % (Auto) 0.9, Absolute Neuts (auto) 6.0, Absolute Lymphs (auto) 1.30, Nucleated RBC % 0.6, Sodium 140, Potassium 4.7, Chloride 99, Carbon Dioxide 31.8, Anion Gap 10, BUN 42 H, Creatinine 1.11, Estim Creat Clear Calc 98.82, Est GFR (MDRD) Non-Af 76, B UN/Creatinine Ratio 38.0 H, Glucose 245 H, Calcium 8.9 06/02/24 08:27: POC Glucose 223 H 06/02/24 11:34: POC Glucose 182 H 06/02/24 16:39: POC Glucose 131 H 06/02/24 22:12: POC Glucose 178 H 06/03/24 05:03: WBC 10.4, RBC 3.79 L, Hgb 10.5 L, Hct 34.5 L, MCV 91.0, MCH 27.7, MCHC 30.4 L, RDW Std Deviation 50.4 H, RDW Coeff of Jung 15.4 H, Plt Count 272, MPV 9.7, Immature Gran % (Auto) 0.900, Neut % (Auto) 73.1 H, Lymph % (Auto) 16.2 L, [place]ting[place] % (Auto) 7.3, Eos % (Auto) 1.8, Baso % (Auto) 0.7, Absolute Neuts (auto) 7.6, Absolute Lymphs (auto) 1.69, Nucleated RBC % 0.2 Micro: Microbiology 05/27/24 04:45 Mucosa - Nasopharyngeal Respiratory Panel (PCR) - Final 05/27/24 01:46 Urine Catheter - Menjivar Legionella Antigen - Final 05/27/24 01:46 Urine Catheter - Menjivar Streptococcus pneumoniae Antigen (M - Final 05/26/24 23:26 Mucosa - Nose SARS-CoV-2, Influenza & RSV (PCR) - Final Physical Exam Narrative GENERAL: Patient on BiPAP HEENT: Atraumatic; normocephalic EYES; Anicteric, Normal Conjunctiva NECK; supple, normal thyroid, RESPIRATORY: Diminished to auscultation CARDIOVASCULAR: Regular S1 S2, GI: soft, normoactive bowel sounds, : No Renal angle tenderness; EXTREMITIES: Bilateral stasis dermatitis MUSCULOSKELETAL: no muscle wasting NEURO: no lateralizing signs. SKIN: No Rash PSYCH; Flat affect Assessment & Plan Assessment/Plan (1) Pulmonary embolism on right: (2) HCAP (healthcare-associated pneumonia): (3) Acute on chronic hypoxic respiratory failure: (4) EITAN (acute kidney injury): PLAN: Plan Patient is a 58-year-old gentleman with multiple comorbidities resident at an [facility] presented with shortness of breath diagnosed with acute pulmonary embolism 1. Acute on chronic hypoxic and hypercapnic respiratory failure ? Secondary to right-sided pulmonary embolism as well as suspected atypical pneumonia ? 05/30/2024; patient requiring increasing oxygen flow currently 9 L flow per minute. ? 05/31/2024.Patient breathing still remains labored and had to be placed on noninvasive ventilation?Airvo ? 06/01/2024; patient oxygen requirement improving currently down to 5 L flow per minute. ? 06/02/2024.Patient reported feeling extremely fatigued during the early hours of the morning. ABGs obtained demonstrated pCO2 of 88.9 with pH of 7.26. Patient was placed on noninvasive ventilation BiPAP ? 06/03/2024; patient back to nasal cannula currently 5 L flow per minute patient be assessed for discharge 2. Acute pulmonary embolism ? CTA obtained on admission demonstrated multifocal nonocclusive pulmonary embolism seen at the right lower lobe basal segment division No CT evidence of right heart strain. Patient was managed on systemic anticoagulation transition to p.o. apixaban starting 05/28/2024. Patient currently requiring 8 L flow of oxygen per minutes with above his baseline of 3 L flow per minute 3. Dyslipidemia ?Patient is on statin therapy, continued at home dose 4. Class III obesity with BMI of 62 ? Complicating care weight loss advised 5. Suspected atypical pneumonia ? Patient was started on meropenem cultures sent so far negative to date 6. Hypertension ? Blood pressure controlled, home medications continued with dose adjustment as needed 7. Diabetes mellitus type II -patient's oral hypoglycemics held. Placed on long acting insulin, Accu-Cheks a.c. and at bedtime and covered with sliding scale insulin 8. Acute on chronic congestive heart failure with preserved ejection fraction ? Echo from November 2023 demonstrated EF of 60% patient is on diuretic therapy continued ? 05/30/2024; adjusted patient diuretic therapy do suspect fluid overload contributing to patient's significant hypoxia ? 05/31/2024 increase patient diuretic dose ? 06/01/2024; patient continues to diurese well and is currently negative fluid balance of 1.6 L over the past 24 hours. Also ordered thousand 200 cc fluid restriction per 24-hour ? 06/02/2024; patient continues to diurese well with negative fluid balance of 2.3 L during the past 24 hours 9. Acute kidney injury ? Chronic kidney disease stage III creatinine on admission was 1.82 improved to 1.29 continuous monitoring with daily BMPs ordered 10. GERD ? On PPI 11. Obstructive sleep apnea ? Patient was prescribed CPAP therapy with consistent use encouraged 12. Peripheral vascular disease ? With history of nonpressure ulcers involving both lower extremities consult placed to wound care nurse 13. Anemia ? Secondary to chronic disorder monitoring H&H and transfuse if patient becomes symptomatic or hemoglobin falls below 7 14. Hyperkalemia ? Repeat potassium ordered for eval if still remains high patient to receive Kayexalate ? 05/31/2024; patient responded to Kayexalate potassium down to 4.9 Time spent in the patient's overall evaluation,decision-making process, review of diagnostic data, adjustment of management, discussion with other providers, nursing nursing and ancillary staff involved in patient's care documentation, 38 minutes Charges/Coding Visit Charges Inpatient E&M: 92224 Subs Hosp L2
[2024-06-03 08:12] LABS: Bedside Glucose 143 mg/dL (74-106)
[2024-06-03] MEDS: Ipratropium/Albuterol Sulfate 3 ML AMPUL.NEB INHALATION (08:47)
[2024-06-03 09:00] LABS: Anion Gap 17 (5-15); BUN 35 mg/dL (4-19); BUN/Creat Ratio 38.7 RATIO (10-20); Calcium,Total 8.8 mg/dL (7.6-11.0); Carbon Dioxide 24.6 mmol/L (21.0-32.0); Chloride 100 mmol/L (98-108); Creatinine, Serum 0.91 mg/dL (0.70-1.20); EST Glomerular Filtration Rate 98 (>60); Estimated Creatinine Clearance 120.54 ml/min (50-250); Glucose 185 mg/dL (70-99); Sodium Level 141 mmol/L (133-145)
--- NOTE | 2024-06-03 09:19 | TREXTCAR_ITS ---
Diet Diet Order/Speech Therapy: 05/30/24 10:11 Diet: Regular - General Dietary Modifications:: Cardiac / Heart Healthy Routine Orders/Code Status Code Status: Full Code DC O2, CPAP, BIPAP needs Home O2 Discharge instructions: Yes Type of respiratory needs?: Oxygen Oxygen frequency: Continuous (5) Continuous oxygen liters per minute: 5 Wound(s) BLLE: Wound Type: Lymphedema Blisters with weeping Therapies Physical Therapy: Eval and Treat Occupational Therapy: Eval and Treat Problem/Diagnosis (1) Pulmonary embolism on right: Status: Acute Code(s): I26.99 - Other pulmonary embolism without acute cor pulmonale (2) HCAP (healthcare-associated pneumonia): Status: Acute Code(s): J18.9 - Pneumonia, unspecified organism (3) Acute on chronic hypoxic respiratory failure: Status: Chronic Code(s): J96.21 - Acute and chronic respiratory failure with hypoxia (4) EITAN (acute kidney injury): Status: Acute Code(s): N17.9 - Acute kidney failure, unspecified Plan Patient is a 58-year-old gentleman with multiple comorbidities resident at an [facility] presented with shortness of breath diagnosed with acute pulmonary embolism 1. Acute on chronic hypoxic and hypercapnic respiratory failure ? Secondary to right-sided pulmonary embolism as well as suspected atypical pneumonia ? 05/30/2024; patient requiring increasing oxygen flow currently 9 L flow per minute. ? 05/31/2024.Patient breathing still remains labored and had to be placed on noninvasive ventilation?Airvo ? 06/01/2024; patient oxygen requirement improving currently down to 5 L flow per minute. ? 06/02/2024.Patient reported feeling extremely fatigued during the early hours of the morning. ABGs obtained demonstrated pCO2 of 88.9 with pH of 7.26. Patient was placed on noninvasive ventilation BiPAP ? 06/03/2024; patient back to nasal cannula currently 5 L flow per minute patient be assessed for discharge 2. Acute pulmonary embolism ? CTA obtained on admission demonstrated multifocal nonocclusive pulmonary embolism seen at the right lower lobe basal segment division No CT evidence of right heart strain. Patient was managed on systemic anticoagulation transition to p.o. apixaban starting 05/28/2024. Patient currently requiring 8 L flow of oxygen per minutes with above his baseline of 3 L flow per minute 3. Dyslipidemia ?Patient is on statin therapy, continued at home dose 4. Class III obesity with BMI of 62 ? Complicating care weight loss advised 5. Suspected atypical pneumonia ? Patient was started on meropenem cultures sent so far negative to date 6. Hypertension ? Blood pressure controlled, home medications continued with dose adjustment as needed 7. Diabetes mellitus type II -patient's oral hypoglycemics held. Placed on long acting insulin, Accu-Cheks a.c. and at bedtime and covered with sliding scale insulin 8. Acute on chronic congestive heart failure with preserved ejection fraction ? Echo from November 2023 demonstrated EF of 60% patient is on diuretic therapy continued ? 05/30/2024; adjusted patient diuretic therapy do suspect fluid overload contri buting to patient's significant hypoxia ? 05/31/2024 increase patient diuretic dose ? 06/01/2024; patient continues to diurese well and is currently negative fluid balance of 1.6 L over the past 24 hours. Also ordered thousand 200 cc fluid restriction per 24-hour ? 06/02/2024; patient continues to diurese well with negative fluid balance of 2.3 L during the past 24 hours 9. Acute kidney injury ? Chronic kidney disease stage III creatinine on admission was 1.82 improved to 1.29 continuous monitoring with daily BMPs ordered 10. GERD ? On PPI 11. Obstructive sleep apnea ? Patient was prescribed CPAP therapy with consistent use encouraged 12. Peripheral vascular disease ? With history of nonpressure ulcers involving both lower extremities consult placed to wound care nurse 13. Anemia ? Secondary to chronic disorder monitoring H&H and transfuse if patient becomes symptomatic or hemoglobin falls below 7 14. Hyperkalemia ? Repeat potassium ordered for eval if still remains high patient to receive Kayexalate ? 05/31/2024; patient responded to Kayexalate potassium down to 4.9 Time spent in the patient's overall evaluation,decision-making process, review of diagnostic data, adjustment of management, discussion with other providers, nursing nursing and ancillary staff involved in patient's care documentation, 38 minutes Allergies/Procedures Done in Hospital Allergies amlodipine (From [facility]) Allergy (Verified 05/26/24 23:08) Other apraclonidine Allergy (Verified 05/26/24 23:08) Other diltiazem Allergy (Verified 05/26/24 23:08) Unknown doxycycline Allergy (Verified 05/26/24 23:08) Other enalapril Allergy (Verified 05/26/24 23:08) Other glimepiride Allergy (Verified 05/26/24 23:08) Other glipizide (From Glucotrol) Allergy (Verified 05/26/24 23:08) Other hydralazine Allergy (Verified 05/26/24 23:08) Other ibuprofen Allergy (Verified 05/26/24 23:08) Other Influenza Virus Vaccines Allergy (Verified 05/26/24 23:08) Unknown latex Allergy (Verified 05/26/24 23:08) Other lisinopril Allergy (Verified 05/26/24 23:08) Other metoprolol Allergy (Verified 05/26/24 23:08) Other montelukast Allergy (Verified 05/26/24 23:08) Other blurred vision Penicillins Allergy (Verified 05/26/24 23:08) Other pravastatin Allergy (Verified 05/26/24 23:08) Other prednisone Allergy (Verified 05/26/24 23:08) Other propranolol Allergy (Verified 05/26/24 23:08) Unknown simvastatin (From Zocor) Allergy (Verified 05/26/24 23:08) Other sulfamethoxazole (From Bactrim) Allergy (Verified 05/26/24 23:08) Other trimethoprim (From Bactrim) Allergy (Verified 05/26/24 23:08) Other Type of Care/Length of Stay Estimated LOS: More Than 30 Days Type of Care Needed: Intermediate Rehab Potential: Fair Prognosis: Fair Additional Orders/Day of Discharge Day of Discharge: 06/03/24 Dietary and Speech Recommendations Dietitian Recommendations/Changes: Continue Cardiac/ 1800 wilman Consistent CHO diet - consider fluid restriction if indicated Continue to follow and monitor for changes in pt nutritional status and make additional rec/provide diet education if indicated. Discharge Plan Admission Admit Date/Time: 05/27/24 01:29 Attending Provider: Son Jeff Primary Care Provider: Nigel Silvestre Consulting Providers: Son Pérez; Pavel Mulligan Discharge Orders/Prescriptions Prescriptions: New L.acidoph,saliva-B.bif-S.therm 175 mg Capsule 1 cap PO 4X/DAY Qty: 0 0RF acetaminophen 325 mg Tablet 650 mg PO Q6H PRN PRN (Reason: Pain 1-5/10 or Fever) Qty: 0 0RF Deep Sea Nasal 0.65 % Aerosol,[place] 2 spray NASAL TID PRN PRN (Reason: NASAL DRYNESS) Qty: 0 0RF Eliquis 5 mg Tablet 5 mg PO BID Qty: 0 0RF melatonin 3 mg Tablet 3 mg PO QHS PRN PRN (Reason: Insomnia) Qty: 0 0RF clonidine HCl 0.1 mg tablet extended release 12 hr 0.1 mg PO BID Qty: 30 0RF budesonide 0.5 mg/2 mL suspension for nebulization 0.5 mg inhalation DAILY Qty: 60 0RF Continued omeprazole magnesium 20 MG tablet,delayed release (DR/EC) 20 mg PO DAILY liraglutide [Victoza 3-Benja] 0.6 mg/0.1 mL (18 mg/3 mL) Pen Injector 1.8 mg SUBCUT DAILY bumetanide 2 mg Tablet 2 mg PO DAILY Qty: 0 0RF ipratropium-albuterol 0.5 mg-3 mg(2.5 mg base)/3 mL Solution For Nebulization 3 ml inhalation Q4HWA.RT 2 Days Qty: 0 0RF isosorbide mononitrate 60 mg Tablet Extended Release 24 Hr 60 mg PO DAILY Qty: 0 0RF alum-mag hydroxide-simeth [Mag-Al Plus Extra Strength] 400-400-40 mg/5 mL Suspension 30 ml PO Q6H PRN PRN (Reason: Gastric Burning) Qty: 0 0RF insulin lispro [Humalog KwikPen Insulin] 100 unit/mL Insulin Pen 10 unit subcut TIDCM Qty: 0 0RF insulin lispro [Humalog KwikPen Insulin] 100 unit/mL Insulin Pen See Protocol subcut ACHS Qty: 0 0RF Protocol: 5. Sliding Scale Insulin High Dosing Condition: 150-209 mg/dl = 3 units Condition: 210-259 mg/dl = 6 units Condition: 260-324 mg/dl = 9 units Condition: 325-374 mg/dl = 12 units Condition: 375-409 mg/dl = 14 units Condition: 410-449 mg/dl = 16 units Condition: Greater than 449 call physician Protocol Text: Suggested for: - Patients on Total Daily Insulin Dose of 81-120 units - Very insulin resistant patients HIGH DOSING ALGORITHM albuterol sulfate 2.5 mg /3 mL (0.083 %) Solution For Nebulization 2.5 mg inhalation Q4H PRN (Reason: Dyspnea, wheezing) sennosides-docusate sodium [Stimulant Laxative Plus] 8.6-50 mg Tablet 2 tab PO BID PRN PRN (Reason: Constipation) guaifenesin 100 mg/5 mL Liquid 100 mg PO Q4H PRN PRN (Reason: Cough) insulin glargine-yfgn 100 unit/mL (3 mL) Insulin Pen 50 unit subcut BID gentamicin 0.1 % ointment 1 applic topical DAILY PRN (Reason: skin irritation) carvedilol 25 mg tablet 25 mg PO BID hydrocortisone 2.5 % cream 1 applic topical DAILY PRN (Reason: skin irritation) cetirizine [24Hour Allergy] 10 mg tablet 10 mg PO DAILY PRN (Reason: allergy symptoms) (DME) portable nebulizer See Rx Instructions .Route .MEDSUPPLY Qty: 1 0RF Rx Instructions: As directed ipratropium-albuterol 0.5 mg-3 mg(2.5 mg base)/3 mL solution for nebulization 3 ml INHALATION Q4H PRN (Reason: shortness of breath or wheezing) Qty: 180 3RF Discontinued losartan 50 mg Tablet 50 mg PO DAILY Qty: 0 0RF prednisone 20 mg tablet 40 mg PO DAILY Referrals / Follow Up: Nigel Silvestre MD [Primary Care Provider] - Within 1 Week Disposition Disposition (needs filled in before D/C Order can be placed): [facility]
[2024-06-03 09:30] VITALS: BP 133/45; PULSE 72; RESP 18; TEMP 36.6; O2SAT 96
--- NOTE | 2024-06-03 09:37 | PCM.DC.SUM ---
Providers Date of Admission: 05/27/24 Date of Discharge: 06/03/24 Primary Care Physician: Dr. Nigel Silvestre MD Consultations 05/27/24 03:07 Consult: Onc/Wound/geophysical prospecting permit agent Routine Comment: Reason for Consult:: BL leg wounds Reason For Visit: RIGHT SIDED PE, PNA, ACUTE HYPOXIC RESPIRATORY Diagnosis Discharge Diagnosis (1) Pulmonary embolism on right: Status: Acute Code(s): I26.99 - Other pulmonary embolism without acute cor pulmonale (2) HCAP (healthcare-associated pneumonia): Status: Acute Code(s): J18.9 - Pneumonia, unspecified organism (3) Acute on chronic hypoxic respiratory failure: Status: Chronic Code(s): J96.21 - Acute and chronic respiratory failure with hypoxia (4) EITAN (acute kidney injury): Status: Acute Code(s): N17.9 - Acute kidney failure, unspecified Plan Patient is a 58-year-old gentleman with multiple comorbidities resident at an [facility] presented with shortness of breath diagnosed with acute pulmonary embolism 1. Acute on chronic hypoxic and hypercapnic respiratory failure ? Secondary to right-sided pulmonary embolism as well as suspected atypical pneumonia ? 05/30/2024; patient requiring increasing oxygen flow currently 9 L flow per minute. ? 05/31/2024.Patient breathing still remains labored and had to be placed on noninvasive ventilation?Airvo ? 06/01/2024; patient oxygen requirement improving currently down to 5 L flow per minute. ? 06/02/2024.Patient reported feeling extremely fatigued during the early hours of the morning. ABGs obtained demonstrated pCO2 of 88.9 with pH of 7.26. Patient was placed on noninvasive ventilation BiPAP ? 06/03/2024; patient back to nasal cannula currently 5 L flow per minute patient be assessed for discharge 2. Acute pulmonary embolism ? CTA obtained on admission demonstrated multifocal nonocclusive pulmonary embolism seen at the right lower lobe basal segment division No CT evidence of right heart strain. Patient was managed on systemic anticoagulation transition to p.o. apixaban starting 05/28/2024. Patient currently requiring 8 L flow of oxygen per minutes with above his baseline of 3 L flow per minute 3. Dyslipidemia ?Patient is on statin therapy, continued at home dose 4. Class III obesity with BMI of 62 ? Complicating care weight loss advised 5. Suspected atypical pneumonia ? Patient was started on meropenem cultures sent so far negative to date 6. Hypertension ? Blood pressure controlled, home medications continued with dose adjustment as needed 7. Diabetes mellitus type II -patient's oral hypoglycemics held. Placed on long acting insulin, Accu-Cheks a.c. and at bedtime and covered with sliding scale insulin 8. Acute on chronic congestive heart failure with preserved ejection fraction ? Echo from November 2023 demonstrated EF of 60% patient is on diuretic therapy continued ? 05/30/2024; adjusted patient diuretic therapy do suspect fluid overload contributing to patient's significant hypoxia ? 05/31/2024 increase patient diuretic dose ? 06/01/2024; patient continues to diurese well and is currently negative fluid balance of 1.6 L over the past 24 hours. Also ordered thousand 200 cc fluid restriction per 24-hour ? 06/02/2024; patient continues to diurese well with negative fluid balance of 2.3 L during the past 24 hours 9. Acute kidney injury ? Chronic kidney disease stage III creatinine on admission was 1.82 improved to 1.29 continuous monitoring with daily BMPs ordered 10. GERD ? On PPI 11. Obstructive sleep apnea ? Patient was prescribed CPAP therapy with consistent use encouraged 12. Peripheral vascular disease ? With history of nonpressure ulcers involving both lower extremities consult placed to wound care nurse 13. Anemia ? Secondary to chronic disorder monitoring H&H and transfuse if patient becomes symptomatic or hemoglobin falls below 7 14. Hyperkalemia ? Repeat potassium ordered for eval if still remains high patient to receive Kayexalate ? 05/31/2024; patient responded to Kayexalate potassium down to 4.9 Time spent in the patient's overall evaluation,decision-making process, review of diagnostic data, adjustment of management, discussion with other providers, nursing nursing and ancillary staff involved in patient's care documentation, 38 minutes Medications at Discharge Home Medications omeprazole magnesium 20 mg tablet,delayed release 20 mg PO DAILY stomach 06/01/19 portable nebulizer #1 ea 12/31/20 ipratropium 0.5 mg-albuterol 3 mg (2.5 mg base)/3 mL nebulization soln 3 ml inhalation Q4H PRN shortness of breath or wheezing #180 mL 01/06/21 liraglutide 0.6 mg/0.1 mL (18 mg/3 mL) subcutaneous pen injector (Victoza 3-Benja) 1.8 mg subcut DAILY diabetes 06/29/21 carvedilol 25 mg tablet 25 mg PO BID heart 12/14/23 cetirizine 10 mg tablet (24Hour Allergy) 10 mg PO DAILY PRN allergy symptoms 12/14/23 gentamicin 0.1 % topical ointment 1 applic topical DAILY PRN skin irritation 12/14/23 hydrocortisone 2.5 % topical cream 1 applic topical DAILY PRN skin irritation 12/14/23 aluminum-mag hydroxide-simethicone 400 mg-400 mg-40 mg/5 mL oral susp (Mag-Al Plus Extra Strength) 30 ml PO Q6H PRN PRN Gastric Burning #0 mL 03/19/24 bumetanide 2 mg tablet 2 mg PO DAILY #0 tabs 03/19/24 insulin lispro 100 unit/mL subcutaneous pen (Humalog KwikPen (U-100) Insulin) 10 unit (0.1 mL) subcut TIDCM #0 mL 03/19/24 insulin lispro 100 unit/mL subcutaneous pen (Humalog KwikPen (U-100) Insulin) See Protocol subcut ACHS #0 mL 03/19/24 ipratropium 0.5 mg-albuterol 3 mg (2.5 mg base)/3 mL nebulization soln 3 ml inhalation Q4HWA.RT 2 days #0 mL 03/19/24 isosorbide mononitrate 60 mg tablet,extended release 24 hr 60 mg PO DAILY #0 tabs 03/19/24 albuterol sulfate 2.5 mg/3 mL (0.083 %) solution for nebulization 2.5 mg inhalation Q4H PRN Dyspnea, wheezing 05/26/24 guaifenesin 100 mg/5 mL oral liquid 100 mg PO Q4H PRN PRN Cough 05/26/24 insulin glargine-yfgn 100 unit/mL (3 mL) subcutaneous pen 50 unit subcut BID 05/26/24 sennosides 8.6 mg-docusate sodium 50 mg tablet (Stimulant Laxative Plus) 2 tab PO BID PRN PRN Constipation 05/26/24 L.acidophil,salivari-Bifido bifidum-Strep thermoph 175 mg capsule 1 cap PO 4X/DAY #0 caps 06/03/24 acetaminophen 325 mg tablet 650 mg (2 x 325 mg) PO Q6H PRN PRN Pain 1-5 or Fever #0 tabs 06/03/24 apixaban 5 mg tablet (Eliquis) 5 mg PO BID #0 tabs 06/03/24 budesonide 0.5 mg/2 mL suspension for nebulization 0.5 mg (2 mL) inhalation DAILY #60 mL 06/03/24 clonidine HCl 0.1 mg tablet,extended release,12 hr 0.1 mg PO BID #30 tabs 06/03/24 melatonin 3 mg tablet 3 mg PO QHS PRN PRN Insomnia #0 tabs 06/03/24 sodium chloride 0.65 % nasal spray aerosol (Deep Sea Nasal) 2 spray NASAL TID PRN PRN NASAL DRYNESS #0 mL 06/03/24 Physical Exam Narrative GENERAL: On nasal cannula appears comfortable HEENT: Atraumatic; normocephalic EYES; Anicteric, Normal Conjunctiva NECK; supple, normal thyroid, RESPIRATORY: Diminished to auscultation CARDIOVASCULAR: Regular S1 S2, GI: soft, normoactive bowel sounds, : No Renal angle tenderness; EXTREMITIES: Bilateral stasis dermatitis MUSCULOSKELETAL: no muscle wasting NEURO: no lateralizing signs. SKIN: No Rash PSYCH; Flat affect Weight / BMI Weight Weight: 158.4 kg Body Mass Index (BMI) 61.8 ABG / Lab / Microbiology Data 06/03/24 05:03 06/03/24 05:03 Laboratory: Laboratory Results - last 24 hr 06/02/24 11:34: POC Glucose 182 H 06/02/24 16:39: POC Glucose 131 H 06/02/24 22:12: POC Glucose 178 H 06/03/24 05:03: WBC 10.4, RBC 3.79 L, Hgb 10.5 L, Hct 34.5 L, MCV 91.0, MCH 27.7, MCHC 30.4 L, RDW Std Deviation 50.4 H, RDW Coeff of Jung 15.4 H, Plt Count 272, MPV 9.7, Immature Gran % (Auto) 0.900, Neut % (Auto) 73.1 H, Lymph % (Auto) 16.2 L, Meagher % (Auto) 7.3, Eos % (Auto) 1.8, Baso % (Auto) 0.7, Absolute Neuts (auto) 7.6, Absolute Lymphs (auto) 1.69, Nucleated RBC % 0.2, Sodium 141, Potassium 5.0, Chloride 100, Carbon Dioxide 24.6, Anion Gap 17 H, BUN 35 H, Creatinine 0.91, Estim Creat Clear Calc 120.54, Est GFR (MDRD) Non-Af 98, BUN/Creatinine Ratio 38.7 H, Glucose 185 H, Calcium 8.8 06/03/24 07:49: POC Glucose 143 H Microbiology: Microbiology 05/27/24 04:45 Mucosa - Nasopharyngeal Respiratory Panel (PCR) - Final 05/27/24 01:46 Urine Catheter - Menjivar Legionella Antigen - Final 05/27/24 01:46 Urine Catheter - Menjivar Streptococcus pneumoniae Antigen (M - Final 05/26/24 23:26 Mucosa - Nose SARS-CoV-2, Influenza & RSV (PCR) - Final D/C Instructions Discharge Diet: 1800 Calorie Control Diet and 2000 mg Sodium Diet Discharge Activity: Return to Normal Activity Call your doctor if you observe: Fever of 101 or Higher, Shortness of breath, Fainting spells and Chest pain DC O2, CPAP, BIPAP Needs PSN CPAP & BiPAP: BiPAP & CPAP Settings per PSN Mode AVAPS 06/03/24 04:03 Bipap Delivery Device Face Mask 06/03/24 04:03 BiPAP Expiratory Pressure 10 06/03/24 04:03 BiPAP Rate 4 06/03/24 04:03 Fraction of Inspired Oxygen ( 35 06/03/24 04:15 FIO2) Total Flow Rate 45 06/01/24 04:00 Home O2 Discharge instructions: Yes Type of respiratory needs?: Oxygen Oxygen frequency: Continuous (5) Continuous oxygen liters per minute: 5 DC home with Oxygen: Yes Home O2 MD Review: I have reviewed the oxygen testing, and the patient qualifies for home oxygen equipment and portability. The patient is mobile in the home and the community. Meaningful Use Info Meaningful Use Meaningful Use Diagnoses (Choose all that apply): CHF CHF TRINITY/ARB ordered at discharge?: No Reason TRINITY/ARB not ordered?: Hyperkalemia Documented LVEF (%): 60 Ischemic Stroke Statin Dosing Therapy Reference: STATIN DOSE THERAPY REFERENCE: * Patients > 75 years receive moderate or high dose statin therapy. * Patients 75 years or YOUNGER should receive HIGH intensity statin dose unless contraindicated. You will be required to document reason for non-treatment if statin daily dose does not meet guidelines. HIGH DOSE STATIN THERAPY DAILY Atorvastatin > than or = to 40 mg Rosuvastatin > than or = to 20 mg Amlodipine + Atorvastatin > than or = to 2.5/40 mg Ezetimibe + Simvastatin 10/80 mg Simvastatin 80mg Discharge Plan Admission Admit Date/Time: 05/27/24 01:29 Attending Provider: Son Jeff Primary Care Provider: Nigel Silvestre Consulting Providers: Son Pérez; Pavel Mulligan Discharge Orders/Prescriptions Prescriptions: reymundo Ramon-B.bif-S.therm 175 mg Capsule 1 cap PO 4X/DAY Qty: 0 0RF acetaminophen 325 mg Tablet 650 mg PO Q6H PRN PRN (Reason: Pain 1-5/10 or Fever) Qty: 0 0RF [place] Nasal 0.65 % Aerosol,[place] 2 spray NASAL TID PRN PRN (Reason: NASAL DRYNESS) Qty: 0 0RF Eliquis 5 mg Tablet 5 mg PO BID Qty: 0 0RF melatonin 3 mg Tablet 3 mg PO QHS PRN PRN (Reason: Insomnia) Qty: 0 0RF clonidine HCl 0.1 mg tablet extended release 12 hr 0.1 mg PO BID Qty: 30 0RF budesonide 0.5 mg/2 mL suspension for nebulization 0.5 mg inhalation DAILY Qty: 60 0RF Continued omeprazole magnesium 20 MG tablet,delayed release (DR/EC) 20 mg PO DAILY liraglutide [Victoza 3-Benja] 0.6 mg/0.1 mL (18 mg/3 mL) Pen Injector 1.8 mg SUBCUT DAILY bumetanide 2 mg Tablet 2 mg PO DAILY Qty: 0 0RF ipratropium-albuterol 0.5 mg-3 mg(2.5 mg base)/3 mL Solution For Nebulization 3 ml inhalation Q4HWA.RT 2 Days Qty: 0 0RF isosorbide mononitrate 60 mg Tablet Extended Release 24 Hr 60 mg PO DAILY Qty: 0 0RF alum-mag hydroxide-simeth [Mag-Al Plus Extra Strength] 400-400-40 mg/5 mL Suspension 30 ml PO Q6H PRN PRN (Reason: Gastric Burning) Qty: 0 0RF insulin lispro [Humalog KwikPen Insulin] 100 unit/mL Insulin Pen 10 unit subcut TIDCM Qty: 0 0RF insulin lispro [Humalog KwikPen Insulin] 100 unit/mL Insulin Pen See Protocol subcut ACHS Qty: 0 0RF Protocol: 5. Sliding Scale Insulin High Dosing Condition: 150-209 mg/dl = 3 units Condition: 210-259 mg/dl = 6 units Condition: 260-324 mg/dl = 9 units Condition: 325-374 mg/dl = 12 units Condition: 375-409 mg/dl = 14 units Condition: 410-449 mg/dl = 16 units Condition: Greater than 449 call physician Protocol Text: Suggested for: - Patients on Total Daily Insulin Dose of 81-120 units - Very insulin resistant patients HIGH DOSING ALGORITHM albuterol sulfate 2.5 mg /3 mL (0.083 %) Solution For Nebulization 2.5 mg inhalation Q4H PRN (Reason: Dyspnea, wheezing) sennosides-docusate sodium [Stimulant Laxative Plus] 8.6-50 mg Tablet 2 tab PO BID PRN PRN (Reason: Constipation) guaifenesin 100 mg/5 mL Liquid 100 mg PO Q4H PRN PRN (Reason: Cough) insulin glargine-yfgn 100 unit/mL (3 mL) Insulin Pen 50 unit subcut BID gentamicin 0.1 % ointment 1 applic topical DAILY PRN (Reason: skin irritation) carvedilol 25 mg tablet 25 mg PO BID hydrocortisone 2.5 % cream 1 applic topical DAILY PRN (Reason: skin irritation) cetirizine [24Hour Allergy] 10 mg tablet 10 mg PO DAILY PRN (Reason: allergy symptoms) (DME) portable nebulizer See Rx Instructions .Route .MEDSUPPLY Qty: 1 0RF Rx Instructions: As directed ipratropium-albuterol 0.5 mg-3 mg(2.5 mg base)/3 mL solution for nebulization 3 ml INHALATION Q4H PRN (Reason: shortness of breath or wheezing) Qty: 180 3RF Discontinued losartan 50 mg Tablet 50 mg PO DAILY Qty: 0 0RF prednisone 20 mg tablet 40 mg PO DAILY Referrals / Follow Up: Nigel Silvestre MD [Primary Care Provider] - Within 1 Week Disposition Disposition (needs filled in before D/C Order can be placed): Nursing Home Facility Charges/Coding Visit Charges Inpatient E&M: 37063 Disch Hosp >30min
[2024-06-03 09:50] VITALS: BP 133/45; PULSE 72; RESP 18; TEMP 36.6; O2SAT 96
--- NOTE | 2024-06-03 09:50 | CASEMGMT ---
Patient is ready for discharge back to [facility]. Plan: d/c back to [facility] under intermediate level of care. Physicians will transport patient via wheelchair van. Roxana BRANDON
[2024-06-03] MEDS: predniSONE 10 MG Tablet PO (09:55)
[2024-06-03] MEDS: Carvedilol 25 MG Tablet PO (09:55)
[2024-06-03] MEDS: APIXABAN 5 MG TABLET 10 MG PO (09:56)
[2024-06-03] MEDS: Ascorbic Acid 500 MG Tablet 1000 MG PO (09:56)
[2024-06-03] MEDS: Lactobacillis Acidophilus 1 CAP PO (09:56)
[2024-06-03] MEDS: Pantoprazole Sodium 20 MG Tablet PO (09:57)
[2024-06-03] MEDS: guaiFENesin 600 MG Tablet PO (09:57)
[2024-06-03] MEDS: Isosorbide Mononitrate 60 MG Tablet PO (09:57)
[2024-06-03] MEDS: Insulin Glargine-YFGN 100 UNIT/ML Pen 50 UNIT SC (09:58)
[2024-06-03] MEDS: Cholecalciferol (Vit D3) 125 MCG CAPSULE (5,000 UNITS) PO (09:58)
[2024-06-03] MEDS: Zinc Sulfate 50 mg zinc (220 mg) ORAL capsule PO (09:58)
--- NOTE | 2024-06-03 10:00 | CASEMGMT ---
Discharge Planning Discharge orders, signed med list, and transport time sent to [facility]. Physicians will transport pt by wheelchair between 10-10:15. Nursing, SW, pt, and his brother (Chuck) updated. Aida Matute DC Planning Asst.
--- NOTE | 2024-06-03 10:05 | PHA.DC.MR.R ---
[facility] Recon[facility] Pharmacy Service has performed discharge medication reconciliation for this patient. The patient's discharge medication list was reviewed for discrepancies and discrepancies were resolved. Medications at Discharge Home Medications omeprazole magnesium 20 mg tablet,delayed release 20 mg PO DAILY stomach 06/01/19 portable nebulizer #1 ea 12/31/20 ipratropium 0.5 mg-albuterol 3 mg (2.5 mg base)/3 mL nebulization soln 3 ml inhalation Q4H PRN shortness of breath or wheezing #180 mL 01/06/21 liraglutide 0.6 mg/0.1 mL (18 mg/3 mL) subcutaneous pen injector (Victoza 3-Benja) 1.8 mg subcut DAILY diabetes 06/29/21 carvedilol 25 mg tablet 25 mg PO BID heart 12/14/23 cetirizine 10 mg tablet (24Hour Allergy) 10 mg PO DAILY PRN allergy symptoms 12/14/23 gentamicin 0.1 % topical ointment 1 applic topical DAILY PRN skin irritation 12/14/23 hydrocortisone 2.5 % topical cream 1 applic topical DAILY PRN skin irritation 12/14/23 aluminum-mag hydroxide-simethicone 400 mg-400 mg-40 mg/5 mL oral susp (Mag-Al Plus Extra Strength) 30 ml PO Q6H PRN PRN Gastric Burning #0 mL 03/19/24 bumetanide 2 mg tablet 2 mg PO DAILY #0 tabs 03/19/24 insulin lispro 100 unit/mL subcutaneous pen (Humalog KwikPen (U-100) Insulin) 10 unit (0.1 mL) subcut TIDCM #0 mL 03/19/24 insulin lispro 100 unit/mL subcutaneous pen (Humalog KwikPen (U-100) Insulin) See Protocol subcut ACHS #0 mL 03/19/24 ipratropium 0.5 mg-albuterol 3 mg (2.5 mg base)/3 mL nebulization soln 3 ml inhalation Q4HWA.RT 2 days #0 mL 03/19/24 isosorbide mononitrate 60 mg tablet,extended release 24 hr 60 mg PO DAILY #0 tabs 03/19/24 albuterol sulfate 2.5 mg/3 mL (0.083 %) solution for nebulization 2.5 mg inhalation Q4H PRN Dyspnea, wheezing 05/26/24 guaifenesin 100 mg/5 mL oral liquid 100 mg PO Q4H PRN PRN Cough 05/26/24 insulin glargine-yfgn 100 unit/mL (3 mL) subcutaneous pen 50 unit subcut BID 05/26/24 sennosides 8.6 mg-docusate sodium 50 mg tablet (Stimulant Laxative Plus) 2 tab PO BID PRN PRN Constipation 05/26/24 L.acidophil,salivari-Bifido bifidum-Strep thermoph 175 mg capsule 1 cap PO 4X/DAY #0 caps 06/03/24 acetaminophen 325 mg tablet 650 mg (2 x 325 mg) PO Q6H PRN PRN Pain 1-08/03 or Fever #0 tabs 06/03/24 apixaban 5 mg tablet (Eliquis) 5 mg PO BID #0 tabs 06/03/24 budesonide 0.5 mg/2 mL suspension for nebulization 0.5 mg (2 mL) inhalation DAILY #60 mL 06/03/24 clonidine HCl 0.1 mg tablet,extended release,12 hr 0.1 mg PO BID #30 tabs 06/03/24 melatonin 3 mg tablet 3 mg PO QHS PRN PRN Insomnia #0 tabs 06/03/24 sodium chloride 0.65 % nasal spray aerosol (Deep Sea Nasal) 2 spray NASAL TID PRN PRN NASAL DRYNESS #0 mL 06/03/24
[2024-06-03] MEDS: Mag Hydrox/Al Hydrox/Simeth 30 ML UDC PO (10:14)
--- NOTE | 2024-06-03 10:32 | NURSING ---
Report given to Jasmina from [facility] at 10:32.
--- NOTE | 2024-06-03 11:40 | NURSING ---
Menjivar catheter removed at 10:21. Pt tolerated well.
== END 2024-06-03 10:40 | disposition skilled nursing facility (03) | DRG 175 ==
LOC: ED 05-27 01:11 → ICU 05-27 01:29 → PCU 05-28 22:41
PROVIDERS: Family Medicine; Admitting Provider Internal Medicine; Emergency Provider Emergency Medicine; PCP Family Medicine; Visit Provider Internal Medicine
DX: I26.99 Other pulmonary embolism without acute cor pulmonale (principal); J96.21 Acute and chronic respiratory failure with hypoxia; I50.33 Acute on chronic diastolic (congestive) heart failure; J18.9 Pneumonia, unspecified organism; N17.9 Acute kidney failure, unspecified; E87.29 Other acidosis; Z68.43 Body mass index [BMI] 50.0-59.9, adult; J44.0 Chronic obstructive pulmonary disease with (acute) lower respiratory infection; I13.0 Hypertensive heart and chronic kidney disease with heart failure and stage 1 through stage 4 chronic kidney disease, or unspecified chronic kidney disease; I50.32 Chronic diastolic (congestive) heart failure; D63.1 Anemia in chronic kidney disease; N18.31 Chronic kidney disease, stage 3a; E11.22 Type 2 diabetes mellitus with diabetic chronic kidney disease; G47.33 Obstructive sleep apnea (adult) (pediatric); E78.5 Hyperlipidemia, unspecified; K21.9 Gastro-esophageal reflux disease without esophagitis; E11.51 Type 2 diabetes mellitus with diabetic peripheral angiopathy without gangrene; E87.5 Hyperkalemia; E11.65 Type 2 diabetes mellitus with hyperglycemia; M19.90 Unspecified osteoarthritis, unspecified site; Z79.4 Long term (current) use of insulin; Y95 Nosocomial condition; E66.813 Obesity, class 3; Z79.899 Other long term (current) drug therapy; Z99.89 Dependence on other enabling machines and devices; J44.89 Other specified chronic obstructive pulmonary disease; Z79.85 Long-term (current) use of injectable non-insulin antidiabetic drugs; T38.0X5A Adverse effect of glucocorticoids and synthetic analogues, initial encounter
CPT/HCPCS: 36415; 36600; 71275; 80048; 80053; 81001; 82009; 82803; 82962; 83036; 83605; 83735; 83880; 84100; 84132; 84443; 84484; 85025; 85610; 85730; 87449; 87631; 87633; 93005; 94002; 94003; 94640; 94660; 94762; 97110; 97116; 97162; 97530; 99252; 99285; J2185; Q9967; A4216; G0463; J1940

== ENCOUNTER 2024-06-06 14:57 | Emergency (ER) | payer MEDICARE, MEDICAID, SELFPAY ==
[2024-06-06] VITALS (28 sets, daily range): BP systolic 122–166; BP diastolic 21–126; PULSE 65–75; RESP 19–29; TEMP 36.4–36.6; O2SAT 85–99; BMI 64.7
--- NOTE | 2024-06-06 15:09 | EKG12_ITS ---
Test Reason : SOB Blood Pressure : */* mmHG Vent. Rate : 70 BPM Atrial Rate : 70 BPM P-R Int : 158 ms QRS Dur : 86 ms QT Int : 394 ms P-R-T Axes : 62 104 77 degrees QTcB Int : 425 ms Normal sinus rhythm Rightward axis Low voltage QRS Nonspecific ST abnormality Abnormal ECG Confirmed by CRUZ BERGER, FERNANDA ([id number]), graphics editor GIGI VALENTINE ([id number]) on 06/10/2024 10:52:02 AM Referred By: Confirmed By: FERNANDA ARROYO MD
[2024-06-06 15:23] LABS: Absolute Lymphocyte Count 1.23 X10^3/uL (0.83-4.51); Basophil# 0.04 X10^3/uL; Basophil% 0.4 % (0-1); Eosinophils% 4.3 % (0-5); Hematocrit 32.3 % (40-54); Lymphocyte # 1.23 X10^3/ul (0.83-4.51); Lymphocyte % 13.3 % (19-41); Mean Corpuscular Hgb 28.1 pg (27.0-32.0); Mean Corpuscular Volume 90.7 fL (80-94); Mean Platelet Vol. 9.4 fl (6.2-12.0); Monocyte# 0.55 X10^3/uL; Monocyte% 5.9 % (0-10); NRBC Flagged by Analyzer 0 % (0-5); Neutrophil # 6.98 X10^3/uL (2.7-7.7); Neutrophil % 75.6 % (47-70); Platelet Count 187 K/mm3 (150-450); RBC Distribution Width CV 15.1 % (11.6-14.6); RBC Distribution Width SD 49.6 fl (35.1-43.9); Red Blood Count 3.56 M/mm3 (4.6-6.2); White Blood Count 9.3 K/mm3 (4.4-11.0)
[2024-06-06 15:34] LABS: Blood Gas Specimen Type VEN; O2 Delivery Device Cannula; SITE Not entered; VBG BASE EXCESS 16 mmol/L (-1.0-3.5); VBG Bicarbonate 42 mmol/L (22-26); VBG PO2 27 mmHg (25-40); VBG SO2 45 % (50-70); VBG TCO2 44 mmol/L (23-33); VBG pCO2 74.1 mmHg (41-51); VBG pH 7.36 (7.32-7.42)
--- NOTE | 2024-06-06 15:37 | ED.VIS.DYS ---
HPI <Dr. Jordy Rodriguez MD - Last Filed: 06/07/24 11:21> History of Present Illness Chief Complaint: Shortness of Breath Detail of Chief Complaint: Near syncope with abrupt onset of shortness of breath and pulse ox of 64% o Informant: patient Onset/Context/Timing Onset: Today and Hours Context: sudden Timing: Continuous and Waxes and wanes Quality: Positive for Dyspnea on exertion; Negative for Orthopnea, PND or Wheezing Current Severity: Mild Maximum Severity: Severe Worsened by: Nothing Relieved by: Nothing Associated Symptoms Negative for cough, rhinorrhea, post nasal drip, ear pain, fever, sore throat, subjective, chills or sweats Chest Pain: Positive for None Narrative Narrative: Patient is a 58-year-old male with a BMI of 64.8 who was admitted on May 27 for a significant pulmonary embolus. Discharge summary authored by Dr. Son Flowers was reviewed. He was admitted for pulmonary embolus on the right, there is no evidence of acute cor pulmonale. Patient also had health care associated pneumonia, acute and chronic respiratory failure with hypoxemia and acute kidney injury. Patient was at nursing facility. He had abrupt onset of shortness of breath with near syncope and saturation of 64% on 5 L. He states he did not have chest discomfort when he was diagnosed with pulmonary embolus. He does not have chest discomfort today. He denies fever, chills night sweats. Denies rhinorrhea, congestion postnasal drainage sore throat. He denies cough. He denies abdominal pain, nausea, vomiting or diarrhea. He denies black or maroon-colored stool. He denies hematuria or dysuria. Patient does have history of diastolic congestive heart failure, hypertension, COPD, chronic lymphedema lower extremity exam a BMI of 64.8, PE Risk Factors: Positive for Prior DVT or PE and Recent immobilization; Negative for Cancer, OCP + Smoking + > 35, Recent surgery or Recent travel Prior similar symptoms: Yes (Documented HPI narrative) Recent Illness/Hospitalization: Yes (Documented HPI narrative) [facility] <Dr. Jordy Rodriguez MD - Last Filed: 06/07/24 11:21> [facility] Medical History Chronic obstructive pulmonary disease with acute respiratory distress Parainfluenza infection MSSA (methicillin susceptible Staphylococcus aureus) pneumonia Morbid obesity CKD (chronic kidney disease), stage III MARYLU (obstructive sleep apnea) HLD (hyperlipidemia) Insulin dependent diabetes mellitus Chronic respiratory failure with hypoxia and hypercapnia (HFpEF) heart failure with preserved ejection fraction Non-smoker Asthma HTN (hypertension) COPD (chronic obstructive pulmonary disease) Non-compliance Lymphedema Ulcer of left lower extremity with fat layer exposed Ulcer of right lower extremity with fat layer exposed Home Medications ?Medication ?Instructions ?Recorded ?Last Taken ?Type omeprazole magnesium 20 mg 20 mg PO DAILY stomach 06/01/19 12/13/23 History tablet,delayed release portable nebulizer #1 ea 12/31/20 Unknown Rx ipratropium 0.5 mg-albuterol 3 mg 3 ml inhalation Q4H PRN shortness 01/06/21 12/13/23 Rx (2.5 mg base)/3 mL nebulization of breath or wheezing #180 mL soln liraglutide 0.6 mg/0.1 mL (18 mg/3 1.8 mg subcut DAILY diabetes 06/29/21 12/13/23 History mL) subcutaneous pen injector ([employer] 3-Benja) carvedilol 25 mg tablet 25 mg PO BID heart 12/14/23 12/13/23 History cetirizine 10 mg tablet (24Hour 10 mg PO DAILY PRN allergy symptoms 12/14/23 12/14/23 History Allergy) gentamicin 0.1 % topical ointment 1 applic topical DAILY PRN skin 12/14/23 12/13/23 History irritation hydrocortisone 2.5 % topical cream 1 applic topical DAILY PRN skin 12/14/23 12/13/23 History irritation aluminum-mag hydroxide-simethicone 30 ml PO Q6H PRN PRN Gastric 03/19/24 Unknown Rx 400 mg-400 mg-40 mg/5 mL oral susp Burning #0 mL (Mag-Al Plus Extra Strength) bumetanide 2 mg tablet 2 mg PO DAILY #0 tabs 03/19/24 Unknown Rx insulin lispro 100 unit/mL 10 unit (0.1 mL) subcut TIDCM #0 mL 03/19/24 Unknown Rx subcutaneous pen (Humalog KwikPen (U-100) Insulin) insulin lispro 100 unit/mL See Protocol subcut ACHS #0 mL 03/19/24 Unknown Rx subcutaneous pen (Humalog KwikPen (U-100) Insulin) ipratropium 0.5 mg-albuterol 3 mg 3 ml inhalation Q4HWA.RT 2 days #0 03/19/24 Unknown Rx (2.5 mg base)/3 mL nebulization mL soln isosorbide mononitrate 60 mg 60 mg PO DAILY #0 tabs 03/19/24 Unknown Rx tablet,extended release 24 hr albuterol sulfate 2.5 mg/3 mL 2.5 mg inhalation Q4H PRN Dyspnea, 05/26/24 Unknown History (0.083 %) solution for nebulization wheezing guaifenesin 100 mg/5 mL oral liquid 100 mg PO Q4H PRN PRN Cough 05/26/24 Unknown History insulin glargine-yfgn 100 unit/mL 50 unit subcut BID 05/26/24 Unknown History (3 mL) subcutaneous pen sennosides 8.6 mg-docusate sodium 2 tab PO BID PRN PRN Constipation 05/26/24 Unknown History 50 mg tablet (Stimulant Laxative Plus) L.acidophil,salivari-Bifido 1 cap PO 4X/DAY #0 caps 06/03/24 Unknown Rx bifidum-Strep thermoph 175 mg capsule acetaminophen 325 mg tablet 650 mg (2 x 325 mg) PO Q6H PRN PRN 06/03/24 Unknown Rx Pain 1-08/03 or Fever #0 tabs apixaban 5 mg tablet (Eliquis) 5 mg PO BID #0 tabs 06/03/24 Unknown Rx budesonide 0.5 mg/2 mL suspension 0.5 mg (2 mL) inhalation DAILY #60 06/03/24 Unknown Rx for nebulization mL clonidine HCl 0.1 mg 0.1 mg PO BID #30 tabs 06/03/24 Unknown Rx tablet,extended release,12 hr melatonin 3 mg tablet 3 mg PO QHS PRN PRN Insomnia #0 06/03/24 Unknown Rx tabs sodium chloride 0.65 % nasal spray 2 spray NASAL TID PRN PRN NASAL 06/03/24 Unknown Rx aerosol (Deep Sea Nasal) DRYNESS #0 mL Allergy/AdvReac Type Severity Reaction Status Date / Time amlodipine (From [facility]) Allergy Other Verified 05/26/24 23:08 apraclonidine Allergy Other Verified 05/26/24 23:08 diltiazem Allergy Unknown Verified 05/26/24 23:08 doxycycline Allergy Other Verified 05/26/24 23:08 enalapril Allergy Other Verified 05/26/24 23:08 glimepiride Allergy Other Verified 05/26/24 23:08 glipizide (From Glucotrol) Allergy Other Verified 05/26/24 23:08 hydralazine Allergy Other Verified 05/26/24 23:08 ibuprofen Allergy Other Verified 05/26/24 23:08 Influenza Virus Vaccines Allergy Unknown Verified 05/26/24 23:08 latex Allergy Other Verified 05/26/24 23:08 lisinopril Allergy Other Verified 05/26/24 23:08 metoprolol Allergy Other Verified 05/26/24 23:08 montelukast Allergy Other Verified 05/26/24 23:08 Penicillins Allergy Other Verified 05/26/24 23:08 pravastatin Allergy Other Verified 05/26/24 23:08 prednisone Allergy Other Verified 05/26/24 23:08 propranolol Allergy Unknown Verified 05/26/24 23:08 simvastatin (From Zocor) Allergy Other Verified 05/26/24 23:08 sulfamethoxazole (From Allergy Other Verified 05/26/24 23:08 Bactrim) trimethoprim (From Bactrim) Allergy Other Verified 05/26/24 23:08 Family History Father Diabetes Hyperlipemia Heart disease Mother CHF (congestive heart failure) Heart disease CVA (cerebral vascular accident) Surgical History Hx of [facility] Social History housing: house current occupational status: unemployed and disabled Smoking Status: Never smoker alcohol intake: never substance use type: does not use ROS <Dr. Jordy Rodriguez MD - Last Filed: 06/07/24 11:21> ROS ED Constitutional Constitutional ED: Denies chills, fever(s), sweats or weight loss Eyes Eyes: Denies blurry vision, change in vision or diplopia ENT ENT ED: Denies ear pain, rhinorrhea or sore throat Cardiovascular Cardiovascular: Denies chest pain, orthopnea, palpitations, paroxysmal nocturnal dyspnea or racing heartbeat Respiratory/Chest Respiratory/Chest: Reports dyspnea and dyspnea on exertion; Denies cough, orthopnea or paroxysmal nocturnal dyspnea Gastrointestinal Gastrointestinal: Denies abdominal pain, melena, nausea or vomiting Genitourinary Genitourinary ED: Denies dysuria or hematuria Musculoskeletal Musculoskeletal: Denies arthralgias or myalgias Integumentary Reports other Details: Venous stasis dermatitis lower extremities. Neurologic Neurologic: Reports weakness Endocrine Endocrinology: Denies cold intolerance or heat intolerance Hematologic/Lymphatic Hematologic/Lymphatic: Reports easy bruising; Denies easy bleeding EXAM <Dr. Jordy Rodriguez MD - Last Filed: 06/07/24 11:21> Physical Exam Const Vital Signs: 06/06/24 14:58 06/06/24 15:03 06/06/24 15:04 Temperature 97.5 F L 97.5 F L Temperature Source Oral Oral Pulse Rate 66 72 Respiratory Rate 26 H 21 H Respiratory Effort Short of Breath Labored Accessory Muscle Use Respiratory Depth Normal Respiratory Pattern Normal Blood Pressure 143/51 H 143/51 H Blood Pressure Mean 81 81 Pulse Ox 99 92 Oxygen Delivery Method Non-Rebreather Nasal Cannula Nasal Cannula Oxygen Flow Rate (L/min) 6 6 06/06/24 15:09 06/06/24 16:02 06/06/24 16:03 Temperature 97.9 F Temperature Source Oral Pulse Rate 65 74 Respiratory Rate 22 H 21 H Respiratory Effort Respiratory Depth Respiratory Pattern Blood Pressure 128/72 H 148/72 H Blood Pressure Mean 90 97 Pulse Ox 93 93 Oxygen Delivery Method Nasal Cannula Oxygen Flow Rate (L/min) 06/06/24 16:30 06/06/24 16:33 06/06/24 16:45 Temperature Temperature Source Pulse Rate 70 68 Respiratory Rate 25 H 21 H Respiratory Effort Respiratory Depth Respiratory Pattern Blood Pressure 140/62 H Blood Pressure Mean 76 Pulse Ox 89 92 Oxygen Delivery Method Oxygen Flow Rate (L/min) 06/06/24 16:45 06/06/24 17:00 06/06/24 17:00 Temperature Temperature Source Pulse Rate 68 68 72 Respiratory Rate 21 H 25 H 26 H Respiratory Effort Respiratory Depth Respiratory Pattern Blood Pressure 134/61 H 152/67 H 152/67 H Blood Pressure Mean 77 95 82 Pulse Ox 92 92 92 Oxygen Delivery Method Oxygen Flow Rate (L/min) 06/06/24 17:15 06/06/24 17:30 06/06/24 17:45 Temperature Temperature Source Pulse Rate 67 Respiratory Rate 25 H Respiratory Effort Respiratory Depth Respiratory Pattern Blood Pressure 141/56 H 155/54 H 144/53 H Blood Pressure Mean 76 79 77 Pulse Ox 92 Oxygen Delivery Method Oxygen Flow Rate (L/min) 06/06/24 18:00 06/06/24 18:00 06/06/24 18:15 Temperature Temperature Source Pulse Rate 66 65 Respiratory Rate 20 H 22 H 23 H Respiratory Effort Respiratory Depth Respiratory Pattern Blood Pressure 148/55 H 148/55 H 134/65 H Blood Pressure Mean 86 77 78 Pulse Ox 90 89 93 Oxygen Delivery Method Oxygen Flow Rate (L/min) 06/06/24 18:30 06/06/24 18:45 06/06/24 19:00 Temperature Temperature Source Pulse Rate 65 67 Respiratory Rate 21 H 26 H 23 H Respiratory Effort Respiratory Depth Respiratory Pattern Blood Pressure 137/59 H 166/55 H 139/61 H Blood Pressure Mean 81 81 82 Pulse Ox 93 93 94 Oxygen Delivery Method Oxygen Flow Rate (L/min) 06/06/24 20:00 06/06/24 20:15 06/06/24 20:30 Temperature Temperature Source Pulse Rate 69 Respiratory Rate 24 H 29 H Respiratory Effort Respiratory Depth Respiratory Pattern Blood Pressure 160/50 H 159/59 H 136/103 H Blood Pressure Mean 75 82 115 Pulse Ox Oxygen Delivery Method Oxygen Flow Rate (L/min) 06/06/24 20:41 06/06/24 20:45 06/06/24 21:00 Temperature Temperature Source Pulse Rate 73 75 Respiratory Rate 19 H 26 H Respiratory Effort Respiratory Depth Respiratory Pattern Blood Pressure 147/50 H 163/126 H Blood Pressure Mean 72 136 Pulse Ox 85 89 Oxygen Delivery Method Oxygen Flow Rate (L/min) 06/06/24 21:01 06/06/24 21:15 06/06/24 21:30 Temperature Temperature Source Pulse Rate 73 74 73 Respiratory Rate 26 H 19 H 26 H Respiratory Effort Respiratory Depth Respiratory Pattern Tachypnea Blood Pressure 122/21 H 122/59 H Blood Pressure Mean 43 75 Pulse Ox 90 88 Oxygen Delivery Method Oxygen Flow Rate (L/min) 06/06/24 21:45 06/06/24 21:58 Temperature 97.9 F Temperature Source Pulse Rate 72 72 Respiratory Rate 25 H 25 H Respiratory Effort Respiratory Depth Respiratory Pattern Blood Pressure 127/50 H 127/50 H Blood Pressure Mean 68 75 Pulse Ox 89 89 Oxygen Delivery Method Oxygen Flow Rate (L/min) Positive well nourished and well developed Constitutional Narrative: Patient presently does not appear in respiratory distress. He is slightly tachypneic. He is not hypoxic on oxygen by nasal cannula. He was removed from the nonrebreather before entering the room. His BMI is 64.8. General Appearance ED: well developed; Negative for pallor HEENT Reports moist mucous membranes atraumatic; Negative for tenderness Eyes PERRL and EOMs intact bilaterally General Eye ED: Negative for pale conjunctiva or scleral icterus Neck no lymphadenopathy, supple, no meningeal signs and no JVD Neck Narrative: Difficult to assess for JVD based on body habitus. Resp normal respiratory effort and clear to auscultation bilaterally Cardio regular rate, regular rhythm, S1 normal heart sound, S2 normal heart sound and no murmurs GI non-tender, non-distended and no masses GI Narrative: Limited exam due to body habitus Palpation: soft Extremity Extremity Narrative: bilateral lymphedema with venous stasis dermatitis Neuro oriented x3, CN's II-XII intact bilaterally and no sensory deficits noted Michell Coma Scale: document GCS findings Spontaneous Obeys Commands Oriented 15 Sensorium / Orientation: alert Skin no wounds and skin turgor normal General Skin Exam: Negative for jaundice or pallor <Dr. Kang Foster, DO - Last Filed: 06/07/24 00:01> Physical Exam Const Vital Signs: 06/06/24 14:58 06/06/24 15:03 06/06/24 15:04 Temperature 97.5 F L 97.5 F L Temperature Source Oral Oral Pulse Rate 66 72 Respiratory Rate 26 H 21 H Respiratory Effort Short of Breath Labored Accessory Muscle Use Respiratory Depth Normal Respiratory Pattern Normal Blood Pressure 143/51 H 143/51 H Blood Pressure Mean 81 81 Pulse Ox 99 92 Oxygen Delivery Method Non-Rebreather Nasal Cannula Nasal Cannula Oxygen Flow Rate (L/min) 6 6 06/06/24 15:09 06/06/24 16:02 06/06/24 16:03 Temperature 97.9 F Temperature Source Oral Pulse Rate 65 74 Respiratory Rate 22 H 21 H Respiratory Effort Respiratory Depth Respiratory Pattern Blood Pressure 128/72 H 148/72 H Blood Pressure Mean 90 97 Pulse Ox 93 93 Oxygen Delivery Method Nasal Cannula Oxygen Flow Rate (L/min) 06/06/24 16:30 06/06/24 16:33 06/06/24 16:45 Temperature Temperature Source Pulse Rate 70 68 Respiratory Rate 25 H 21 H Respiratory Effort Respiratory Depth Respiratory Pattern Blood Pressure 140/62 H Blood Pressure Mean 76 Pulse Ox 89 92 Oxygen Delivery Method Oxygen Flow Rate (L/min) 06/06/24 16:45 06/06/24 17:00 06/06/24 17:00 Temperature Temperature Source Pulse Rate 68 68 72 Respiratory Rate 21 H 25 H 26 H Respiratory Effort Respiratory Depth Respiratory Pattern Blood Pressure 134/61 H 152/67 H 152/67 H Blood Pressure Mean 77 95 82 Pulse Ox 92 92 92 Oxygen Delivery Method Oxygen Flow Rate (L/min) 06/06/24 17:15 06/06/24 17:30 06/06/24 17:45 Temperature Temperature Source Pulse Rate 67 Respiratory Rate 25 H Respiratory Effort Respiratory Depth Respiratory Pattern Blood Pressure 141/56 H 155/54 H 144/53 H Blood Pressure Mean 76 79 77 Pulse Ox 92 Oxygen Delivery Method Oxygen Flow Rate (L/min) 06/06/24 18:00 06/06/24 18:00 06/06/24 18:15 Temperature Temperature Source Pulse Rate 66 65 Respiratory Rate 20 H 22 H 23 H Respiratory Effort Respiratory Depth Respiratory Pattern Blood Pressure 148/55 H 148/55 H 134/65 H Blood Pressure Mean 86 77 78 Pulse Ox 90 89 93 Oxygen Delivery Method Oxygen Flow Rate (L/min) 06/06/24 18:30 06/06/24 18:45 06/06/24 19:00 Temperature Temperature Source Pulse Rate 65 67 Respiratory Rate 21 H 26 H 23 H Respiratory Effort Respiratory Depth Respiratory Pattern Blood Pressure 137/59 H 166/55 H 139/61 H Blood Pressure Mean 81 81 82 Pulse Ox 93 93 94 Oxygen Delivery Method Oxygen Flow Rate (L/min) 06/06/24 20:00 06/06/24 20:15 06/06/24 20:30 Temperature Temperature Source Pulse Rate 69 Respiratory Rate 24 H 29 H Respiratory Effort Respiratory Depth Respiratory Pattern Blood Pressure 160/50 H 159/59 H 136/103 H Blood Pressure Mean 75 82 115 Pulse Ox Oxygen Delivery Method Oxygen Flow Rate (L/min) 06/06/24 20:41 06/06/24 20:45 06/06/24 21:00 Temperature Temperature Source Pulse Rate 73 75 Respiratory Rate 19 H 26 H Respiratory Effort Respiratory Depth Respiratory Pattern Blood Pressure 147/50 H 163/126 H Blood Pressure Mean 72 136 Pulse Ox 85 89 Oxygen Delivery Method Oxygen Flow Rate (L/min) 06/06/24 21:01 06/06/24 21:15 06/06/24 21:30 Temperature Temperature Source Pulse Rate 73 74 73 Respiratory Rate 26 H 19 H 26 H Respiratory Effort Respiratory Depth Respiratory Pattern Tachypnea Blood Pressure 122/21 H 122/59 H Blood Pressure Mean 43 75 Pulse Ox 90 88 Oxygen Delivery Method Oxygen Flow Rate (L/min) 06/06/24 21:45 06/06/24 21:58 Temperature 97.9 F Temperature Source Pulse Rate 72 72 Respiratory Rate 25 H 25 H Respiratory Effort Respiratory Depth Respiratory Pattern Blood Pressure 127/50 H 127/50 H Blood Pressure Mean 68 75 Pulse Ox 89 89 Oxygen Delivery Method Oxygen Flow Rate (L/min) Neuro Michell Coma Scale: document GCS findings 15 MDM <Dr. Jordy Rodriguez MD - Last Filed: 06/07/24 11:21> [facility] MDM Narrative Medical decision making narrative: With abrupt onset of shortness of breath hypoxia near syncope concern patient may have an acute recurrent pulmonary embolus that failed outpatient treatment, need to also consider pneumothorax, cardiac ischemia, dysrhythmia. Will obtain EKG, chest x-ray appropriate blood work. If chest x-ray does not reveal any significant abnormality to explain patient's symptoms will obtain CTA. Will inform the afternoon physician of patient's history, physical and disposition to be made after CTA has been performed and all laboratory tests have been resulted. History & Record Review Additional record(s) reviewed:: Prior inpatient record (Documented HPI narrative), Prior ED visit and Prior labs Lab Data Attestation: I reviewed the patient's lab results. Lab results narrative: CBC reveals mild anemia with normal indices. Labs: Laboratory Results - last 24 hr 06/06/24 06/06/24 06/06/24 15:05 15:17 17:16 WBC 9.3 RBC 3.56 L Hgb 10.0 L Hct 32.3 L MCV 90.7 MCH 28.1 MCHC 31.0 L RDW Std Deviation 49.6 H RDW Coeff of Jung 15.1 H Plt Count 187 MPV 9.4 Immature Gran % (Auto) 0.500 Neut % (Auto) 75.6 H Lymph % (Auto) 13.3 L [place] % (Auto) 5.9 Eos % (Auto) 4.3 Baso % (Auto) 0.4 Absolute Neuts (auto) 7.0 Absolute Lymphs (auto) 1.23 Nucleated RBC % 0 PT 15.9 H INR 1.2 APTT 31.4 Sodium 142 Potassium 4.6 Chloride 98 Carbon Dioxide 35.6 H Anion Gap 8 BUN 38 H Creatinine 1.25 H Estim Creat Clear Calc 89.21 Est GFR (MDRD) Non-Af 66 BUN/Creatinine Ratio 30.4 H Glucose 183 H Lactic Acid 1.3 Calcium 8.8 Troponin T High Sens 33 H D NT pro BNP II 607 POC Glucose 06/06/24 06/06/24 06/06/24 19:55 20:17 20:45 WBC RBC Hgb Hct MCV MCH MCHC RDW Std Deviation RDW Coeff of Jung Plt Count MPV Immature Gran % (Auto) Neut % (Auto) Lymph % (Auto) [place] % (Auto) Eos % (Auto) Baso % (Auto) Absolute Neuts (auto) Absolute Lymphs (auto) Nucleated RBC % PT INR APTT Sodium Potassium Chloride Carbon Dioxide Anion Gap BUN Creatinine Estim Creat Clear Calc Est GFR (MDRD) Non-Af BUN/Creatinine Ratio Glucose Lactic Acid Calcium Troponin T High Sens NT pro BNP II POC Glucose 60 L 58 L 130 H ABG Data Attestation: I personally reviewed and interpreted this ABG as follows: Interpretation: VBG reveals normal pH. Patient has chronic CO2 retention. ABG results: ABG 06/06/24 15:29 Specimen Type IGNACIO Sample Site Not entered O2 % 5.0 VBG pH 7.36 VBG pO2 27 VBG HCO3 42 H VBG Total CO2 44 H VBG O2 Sat (Calc) 45 L VBG Base Excess 16 H POC Mix VBG pCO2 Pt Tmp 74.1 H* O2 Delivery Device Cannula Crit Call To/Read Back Yes Blood Gas Notified Whom LE Blood Gas Notified Time 15:31:08 Radiography Chest X-Ray - ED: 1 View and Read by ED Physician (There is no acute abnormality noted i.e. pneumothorax, CHF or infiltrate. Cardiac silhouette is unremarkable. Hilum is unremarkable. Osseous structures reveal no acute process.) Diagnostic Testing: Clinical Impression(s) from Imaging Studies Chest X-Ray 06/06/24 15:40 IMPRESSION: Findings in keeping with a vascular congestion and mild CHF. Reading Location: [id number] Chest CTA 06/06/24 16:20 IMPRESSION: Findings consistent with acute bilateral pulmonary embolism with right heart strain. The clot burden appears worse when compared to prior examination. Moderate bilateral pleural effusions, [id number] with associated compressive atelectasis at the lung bases. Other subsegmental atelectasis are noted within the lungs bilaterally. Pneumonia to be ruled out clinically. These findings are overall worse compared to prior examination. Mosaiform attenuation of the lungs may indicate some degree of pulmonary vascular congestion. This is new. Abnormally prominent mediastinal lymph nodes, etiology to be determined. Recommend short-term follow-up CT once acute episode resolves. One or more dose reduction techniques were used (e.g., Automated exposure control, adjustment of the mA and/or kV according to patient size, use of iterative reconstruction technique). Red Alert: Acute bilateral pulmonary embolism, with increased clot burden when compared to prior examination. There is new right atrium. Moderate bilateral pleural effusions are worse compared to prior examination. The critical information above was relayed directly by me by telephone to Dr. Foster on 06/06/2024 at 5:02 pm with readback verification. Reading Location: [facility] EKG Initial EKG: Attestation: I personally reviewed and interpreted this EKG as follows: Interpretation: Sinus Rhythm (Rate is 70. There is artifact. [place] to the right. MI interval is 158 ms. QS duration 86 ms. QT durations are 94 ms. Patient has low voltage. This is probably due to body habitus. The nonseptic changes are due to his respiratory breathing pattern.) Treatment and Re-Evaluation :: Since patient has no significant abnormality on the chest x-ray to explain his abrupt onset of hypoxia we will obtain a CTA. <Dr. Kang Foster, DO - Last Filed: 06/07/24 00:01> [facility] Narrative Medical decision making narrative: With abrupt onset of shortness of breath hypoxia near syncope concern patient may have an acute recurrent pulmonary embolus that failed outpatient treatment, need to also consider pneumothorax, cardiac ischemia, dysrhythmia. Will obtain EKG, chest x-ray appropriate blood work. If chest x-ray does not reveal any significant abnormality to explain patient's symptoms will obtain CTA. Will inform the afternoon physician of patient's history, physical and disposition to be made after CTA has been performed and all laboratory tests have been resulted. Patient was turned over to me by Dr. [email or web address] Brief history: 58-year-old male recent diagnosed PE here with acute shortness of breath Physical exam: Hemodynamically stable saturating well on home oxygen Labs and images reviewed (if obtained): CTA showed worsening clot burden and right heart strain Added troponin and BNP to further stratify. Troponin intermediate awaiting delta. BNP negative. MDM/plan: Given worsening clot burden, failure of outpatient therapy, concern for possible acute clinical decompensation requiring surgical intervention transferred the patient to [facility]. Discussed the case with [facility] ICU Dr. Mckeon who thought the patient was excepted for stepdown. Then spoke to Dr. Clement who accepted patient in transfer. Patient was transferred in stable condition. Total critical care time today provided was at least 35 minutes. This excludes seperately billable procedures. There was a high probability of clinically significant/life threatening deterioration in the patient's condition which required my urgent intervention. Impression: 1. Acute dyspnea 2. Bilateral pulmonary emboli 3. Right heart strain Disposition: Transfer [facility] Lab Data Labs: Laboratory Results - last 24 hr 06/06/24 06/06/24 06/06/24 15:05 15:17 17:16 WBC 9.3 RBC 3.56 L Hgb 10.0 L Hct 32.3 L MCV 90.7 MCH 28.1 MCHC 31.0 L RDW Std Deviation 49.6 H RDW Coeff of Jung 15.1 H Plt Count 187 MPV 9.4 Immature Gran % (Auto) 0.500 Neut % (Auto) 75.6 H Lymph % (Auto) 13.3 L [place] % (Auto) 5.9 Eos % (Auto) 4.3 Baso % (Auto) 0.4 Absolute Neuts (auto) 7.0 Absolute Lymphs (auto) 1.23 Nucleated RBC % 0 PT 15.9 H INR 1.2 APTT 31.4 Sodium 142 Potassium 4.6 Chloride 98 Carbon Dioxide 35.6 H Anion Gap 8 BUN 38 H Creatinine 1.25 H Estim Creat Clear Calc 89.21 Est GFR (MDRD) Non-Af 66 BUN/Creatinine Ratio 30.4 H Glucose 183 H Lactic Acid 1.3 Calcium 8.8 Troponin T High Sens 33 H D NT pro BNP II 607 POC Glucose 06/06/24 06/06/24 06/06/24 19:55 20:17 20:45 WBC RBC Hgb Hct MCV MCH MCHC RDW Std Deviation RDW Coeff of Jung Plt Count MPV Immature Gran % (Auto) Neut % (Auto) Lymph % (Auto) [place] % (Auto) Eos % (Auto) Baso % (Auto) Absolute Neuts (auto) Absolute Lymphs (auto) Nucleated RBC % PT INR APTT Sodium Potassium Chloride Carbon Dioxide Anion Gap BUN Creatinine Estim Creat Clear Calc Est GFR (MDRD) Non-Af BUN/Creatinine Ratio Glucose Lactic Acid Calcium Troponin T High Sens NT pro BNP II POC Glucose 60 L 58 L 130 H ABG Data ABG results: ABG 06/06/24 15:29 Specimen Type IGNACIO Sample Site Not entered O2 % 5.0 VBG pH 7.36 VBG pO2 27 VBG HCO3 42 H VBG Total CO2 44 H VBG O2 Sat (Calc) 45 L VBG Base Excess 16 H POC Mix VBG pCO2 Pt Tmp 74.1 H* O2 Delivery Device Cannula Crit Call To/Read Back Yes Blood Gas Notified Whom LE Blood Gas Notified Time 15:31:08 Radiography Diagnostic Testing: Clinical Impression(s) from Imaging Studies Chest X-Ray 06/06/24 15:40 IMPRESSION: Findings in keeping with a vascular congestion and mild CHF. Reading Location: [facility] Chest CTA 06/06/24 16:20 IMPRESSION: Findings consistent with acute bilateral pulmonary embolism with right heart strain. The clot burden appears worse when compared to prior examination. Moderate bilateral pleural effusions, vkmp-pmkduxq-bqhe-right with associated compressive atelectasis at the lung bases. Other subsegmental atelectasis are noted within the lungs bilaterally. Pneumonia to be ruled out clinically. These findings are overall worse compared to prior examination. Mosaiform attenuation of the lungs may indicate some degree of pulmonary vascular congestion. This is new. Abnormally prominent mediastinal lymph nodes, etiology to be determined. Recommend short-term follow-up CT once acute episode resolves. One or more dose reduction techniques were used (e.g., Automated exposure control, adjustment of the mA and/or kV according to patient size, use of iterative reconstruction technique). Red Alert: Acute bilateral pulmonary embolism, with increased clot burden when compared to prior examination. There is new right atrium. Moderate bilateral pleural effusions are worse compared to prior examination. The critical information above was relayed directly by me by telephone to Dr. Foster on 06/06/2024 at 5:02 pm with readback verification. Reading Location: [facility] Discharge Plan Triage Chief Complaint: Shortness of Breath ED Provider: Kang Foster Dx/Rx/DC Orders Prescriptions: No Action omeprazole magnesium 20 MG tablet,delayed release (DR/EC) 20 mg PO DAILY liraglutide [Victoza 3-Benja] 0.6 mg/0.1 mL (18 mg/3 mL) Pen Injector 1.8 mg SUBCUT DAILY bumetanide 2 mg Tablet 2 mg PO DAILY Qty: 0 0RF ipratropium-albuterol 0.5 mg-3 mg(2.5 mg base)/3 mL Solution For Nebulization 3 ml inhalation Q4HWA.RT 2 Days Qty: 0 0RF isosorbide mononitrate 60 mg Tablet Extended Release 24 Hr 60 mg PO DAILY Qty: 0 0RF alum-mag hydroxide-simeth [Mag-Al Plus Extra Strength] 400-400-40 mg/5 mL Suspension 30 ml PO Q6H PRN PRN (Reason: Gastric Burning) Qty: 0 0RF insulin lispro [Humalog KwikPen Insulin] 100 unit/mL Insulin Pen 10 unit subcut TIDCM Qty: 0 0RF insulin lispro [Humalog KwikPen Insulin] 100 unit/mL Insulin Pen See Protocol subcut ACHS Qty: 0 0RF Protocol: 5. Sliding Scale Insulin High Dosing Condition: 150-209 mg/dl = 3 units Condition: 210-259 mg/dl = 6 units Condition: 260-324 mg/dl = 9 units Condition: 325-374 mg/dl = 12 units Condition: 375-409 mg/dl = 14 units Condition: 410-449 mg/dl = 16 units Condition: Greater than 449 call physician Protocol Text: Suggested for: - Patients on Total Daily Insulin Dose of 81-120 units - Very insulin resistant patients HIGH DOSING ALGORITHM albuterol sulfate 2.5 mg /3 mL (0.083 %) Solution For Nebulization 2.5 mg inhalation Q4H PRN (Reason: Dyspnea, wheezing) sennosides-docusate sodium [Stimulant Laxative Plus] 8.6-50 mg Tablet 2 tab PO BID PRN PRN (Reason: Constipation) guaifenesin 100 mg/5 mL Liquid 100 mg PO Q4H PRN PRN (Reason: Cough) insulin glargine-yfgn 100 unit/mL (3 mL) Insulin Pen 50 unit subcut BID L.acidoph,saliva-B.bif-S.therm 175 mg Capsule 1 cap PO 4X/DAY Qty: 0 0RF acetaminophen 325 mg Tablet 650 mg PO Q6H PRN PRN (Reason: Pain 1-5/10 or Fever) Qty: 0 0RF [place] Nasal 0.65 % Aerosol,[place] 2 spray NASAL TID PRN PRN (Reason: NASAL DRYNESS) Qty: 0 0RF Eliquis 5 mg Tablet 5 mg PO BID Qty: 0 0RF melatonin 3 mg Tablet 3 mg PO QHS PRN PRN (Reason: Insomnia) Qty: 0 0RF clonidine HCl 0.1 mg tablet extended release 12 hr 0.1 mg PO BID Qty: 30 0RF budesonide 0.5 mg/2 mL suspension for nebulization 0.5 mg inhalation DAILY Qty: 60 0RF gentamicin 0.1 % ointment 1 applic topical DAILY PRN (Reason: skin irritation) carvedilol 25 mg tablet 25 mg PO BID hydrocortisone 2.5 % cream 1 applic topical DAILY PRN (Reason: skin irritation) cetirizine [24Hour Allergy] 10 mg tablet 10 mg PO DAILY PRN (Reason: allergy symptoms) (DME) portable nebulizer See Rx Instructions .Route .MEDSUPPLY Qty: 1 0RF Rx Instructions: As directed ipratropium-albuterol 0.5 mg-3 mg(2.5 mg base)/3 mL solution for nebulization 3 ml INHALATION Q4H PRN (Reason: shortness of breath or wheezing) Qty: 180 3RF Primary Care Provider: Armin Chau Referrals: Nigel Silvestre MD [Med Staff - Active Staff] - Print Language: German Disposition Disposition: Acute Care Hospital Discharge Location: [facility] Discharge Date/Time: 06/06/24 22:12
--- NOTE | 2024-06-06 15:40 | RAD_ITS ---
PROCEDURE: CHEST 1 VIEW (PORTABLE) 06/06/2024 REASON FOR EXAM: HYPOXIA AND DYSPNEA TECHNIQUE: Frontal view of the chest. COMPARISON: Comparison is made with prior study dated April 15, 2024. FINDINGS: EKG electrodes are seen. Borderline cardiomegaly. Findings suggestive of vascular congestion and mild CHF. RAD/Chest 1 View (Portable) IMPRESSION: Findings in keeping with a vascular congestion and mild CHF. Reading Location: [facility]
[2024-06-06 15:56] LABS: Lactic Acid 1.3 mmol/L (0.0-2.0)
[2024-06-06 16:10] LABS: Anion Gap 8 (5-15); BUN 38 mg/dL (4-19); BUN/Creat Ratio 30.4 RATIO (10-20); Calcium,Total 8.8 mg/dL (7.6-11.0); Carbon Dioxide 35.6 mmol/L (21.0-32.0); Chloride 98 mmol/L (98-108); Creatinine, Serum 1.25 mg/dL (0.70-1.20); EST Glomerular Filtration Rate 66 (>60); Estimated Creatinine Clearance 89.21 ml/min (50-250); Glucose 183 mg/dL (70-99); Potassium 4.6 mmol/L (3.3-5.1); Sodium Level 142 mmol/L (133-145)
--- NOTE | 2024-06-06 16:20 | CT_ITS ---
PROCEDURE: CTA CHEST W/WO CONTRAST REASON FOR EXAM: ACUTE HYPOXIA, HISTORY OF PE, DYSPNEA AND NEAR SYN TECHNIQUE: CTA imaging of the chest with intravenous contrast. 3D reconstructions. CONTRAST: COMPARISON: CTA chest performed on 05/27/2024. FINDINGS: The trachea and central bronchial tree are patent. There are hmgad-kv-rroujnwt bilateral pleural effusions, phkp-tlqjfbr-lkii-right. There is no pericardial effusion present. The heart is normal in size. There are several borderline prominent lymph node within the mediastinum. For example there is a 1.2 cm prevascular node best seen on image 45/115. There are several similar appearing lymph nodes within the mediastinum. Etiology to be determined. The thoracic aorta is normal in size and caliber without evidence of aneurysmal dilatation. Evaluation of the pulmonary arteries demonstrate several filling defects within the upper, medial and lower lobe branches of the right pulmonary artery. Filling defect also noted within the left lower lobe branch of the pulmonary artery. These are consistent with acute pulmonary embolism. There is prominence of the right ventricle with compared to the left side consistent with right eye strain. Evaluation of the lung parenchyma demonstrate mosaiform attenuation. There are several areas of subsegmental atelectasis within the lingula and left upper lobe. Subsegmental atelectasis seen at the lung bases bilaterally, emlx-loebtsw-pxzz-right. Evaluation of the lung parenchyma is somewhat limited due to respiratory motion abnormalities. No acute osseous abnormality seen. Small hiatal hernia is present. CT/CTA Chest W/WO Contrast IMPRESSION: Findings consistent with acute bilateral pulmonary embolism with right heart st rain. The clot burden appears worse when compared to prior examination. Moderate bilateral pleural effusions, avda-awojgwj-zvnf-right with associated c ompressive atelectasis at the lung bases. Other subsegmental atelectasis are noted within the lungs bilaterally. Pneumonia to be ruled out clinically. These findings are overall worse compared to prior examination. Mosaiform attenuation of the lungs may indicate some degree of pulmonary vascu lar congestion. This is new. Abnormally prominent mediastinal lymph nodes, etiology to be determined. Recommend short-term follow-up CT once acute episode resolves. One or more dose reduction techniques were used (e.g., Automated exposure contr ol, adjustment of the mA and/or kV according to patient size, use of iterative reconstruction technique). Red Alert: Acute bilateral pulmonary embolism, with increased clot burden when compared to prior examination. There is new right atrium. Moderate bilateral pleural effusions are worse compared to prior examin ation. The critical information above was relayed directly by me by telephone to Dr. Dario miranda on 06/06/2024 at 5:02 pm with readback verification. Reading Location: [id number]
[2024-06-06] MEDS: Heparin Injection (Vial) 5,000 UNIT/ML VIAL 4000 UNIT IV (17:17)
[2024-06-06] MEDS: HEPARIN/D5w 25,000 UNITS 25,000 UNITS/250 ML IV.SOLN. 10 UNITS CONT INF (17:17)
[2024-06-06 17:39] LABS: International Normalized Ratio 1.2; Prothrombin Time (Protime)PT. 15.9 SECONDS (11.7-14.9)
[2024-06-06 17:44] LABS: Partial Thromboplast Time 31.4 Seconds (24.1-36.2)
--- NOTE | 2024-06-06 18:09 | ED.RN ---
CALLED [facility] AT 1750 WAITING FOR ACCEPTING CALL
--- NOTE | 2024-06-06 19:42 | ED.RN ---
ACCEPTED AT [address] [phone]
[2024-06-06 20:13] LABS: Bedside Glucose 60 mg/dL (74-106)
[2024-06-06 20:21] LABS: Pro- Brain NATRIURETIC PEPTIDE 607 pg/mL (<=900); Troponin T High Sensitivity 33 ng/L (<=22)
[2024-06-06 20:34] LABS: Bedside Glucose 58 mg/dL (74-106)
[2024-06-06] MEDS: Ipratropium/Albuterol Sulfate 3 ML AMPUL.NEB INHALATION (21:01)
[2024-06-06 21:04] LABS: Bedside Glucose 130 mg/dL (74-106)
== END 2024-06-06 22:12 | disposition short-term general hospital (02) ==
PROVIDERS: Emergency Medicine; Emergency Provider Emergency Medicine; PCP Family Medicine; Visit Provider Emergency Medicine
DX: I26.99 Other pulmonary embolism without acute cor pulmonale (principal); I11.0 Hypertensive heart disease with heart failure; I50.32 Chronic diastolic (congestive) heart failure; J44.9 Chronic obstructive pulmonary disease, unspecified; E66.01 Morbid (severe) obesity due to excess calories; Z68.44 Body mass index [BMI] 60.0-69.9, adult; Z79.4 Long term (current) use of insulin; E11.22 Type 2 diabetes mellitus with diabetic chronic kidney disease; N18.30 Chronic kidney disease, stage 3 unspecified; E78.5 Hyperlipidemia, unspecified; Z79.01 Long term (current) use of anticoagulants; Z79.85 Long-term (current) use of injectable non-insulin antidiabetic drugs; Z79.899 Other long term (current) drug therapy
CPT/HCPCS: 71045; 71275; 80048; 82803; 82962; 83605; 83880; 84484; 85025; 85610; 85730; 93005; 94640; 96365; 96366; 99285; Q9967; A4216